=== PATIENT | male | born 1960 | race Caucasian/White ===

== ENCOUNTER → 2017-12-19 10:49 | Outpatient (CLI) | payer OTHER, SELFPAY | PROVIDERS: Family Provider Internal Medicine; PCP Internal Medicine; Visit Provider Internal Medicine | DX: R00.2 Palpitations (principal) | CPT/HCPCS: 93225; 93226 ==

== ENCOUNTER 2018-02-15 08:25 | Emergency (ER) | payer OTHER, SELFPAY ==
[2018-02-15 08:26] VITALS: BP 130/86; PULSE 70; RESP 18; TEMP 35.7; O2SAT 95; BMI 40.8
--- NOTE | 2018-02-15 08:31 | EKG12_ITS ---
Test Reason : ARRHYTHMIA Blood Pressure : / mmHG Vent. Rate : 142 BPM Atrial Rate : 277 BPM P-R Int : 000 ms QRS Dur : 136 ms QT Int : 336 ms P-R-T Axes : 245 -13 -45 degrees QTc Int : 516 ms Atrial flutter with variable A-V block Left bundle branch block Abnormal ECG Confirmed by MUNA SILVA, ROMEL ([id number]), video effects editor MATTI DOBSON ([id number]) on 02/17/2018 1:57:55 PM Referred By: ARIELLE Confirmed By:ROMEL TORO MD
[2018-02-15 08:38] VITALS: PULSE 143; RESP 19; O2SAT 96
--- NOTE | 2018-02-15 08:39 | RAD_ITS ---
STUDY: X-RAY CHEST REASON FOR EXAM: Male, 57 years old. Palpitations. TECHNIQUE: Single AP portable view of the chest. COMPARISON: December 07, 2017. FINDINGS: There are monitoring devices. The lungs are clear and expanded. There is no demonstrated pleural abnormality. Normal size heart. Normal mediastinum and nicol. Normal visualized pulmonary arteries. Normal visualized aortic arch and descending thoracic aorta. Normal visualized thoracic spine. Normal visualized ribs, clavicles, and shoulders. There is no demonstrated abnormality of the visualized soft tissue structures of the upper abdomen. RAD/Chest 1 View (Portable) IMPRESSION: Normal x-ray examination of the chest. Electronically Signed: Anthony Guzman MD at 9:06 EDT , Service support ,
--- NOTE | 2018-02-15 08:39 | EKG12_ITS ---
Test Reason : REPEAT Blood Pressure : / mmHG Vent. Rate : 077 BPM Atrial Rate : 077 BPM P-R Int : 188 ms QRS Dur : 102 ms QT Int : 390 ms P-R-T Axes : 002 -04 017 degrees QTc Int : 441 ms Normal sinus rhythm Septal infarct , age undetermined Abnormal ECG Confirmed by MUNA SILVA, ROMEL ([id number]), editorial clerk MATTI DOBSON ([id number]) on 02/17/2018 1:38:59 PM Referred By: MINERVA Confirmed By:ROMEL TORO MD
[2018-02-15] MEDS: dilTIAZem 25 MG/5 ML Vial 10 MG IV BOLUS ×2 (08:42→08:53)
[2018-02-15 08:49] LABS: Absolute Lymphocyte Count 2.28 X10^3/ul (0.83-4.51); Absolute Neutrophil Count 6.5 X10^3/uL (2.0-7.7); Basophil# 0.06 X10^3/uL; Basophil% 0.6 % (0-1); Hematocrit 47.1 % (40-54); Hemoglobin 15.7 g/dl (13.0-16.5); Lymphocyte # 2.28 X10^3/ul (4.0); Lymphocyte % 22.8 % (19-41); Mean Corp Hgb Conc 33.3 g/gl (32-36); Mean Corpuscular Hgb 30.2 pg (27.0-32.0); Mean Corpuscular Volume 90.6 fL (80-94); Mean Platelet Vol. 8.6 fl (6.2-12.0); Neutrophil % 65.1 % (47-70); POSITIVE COUNT NO; POSITIVE DIFFERENTIAL NO; POSITIVE MORPHOLOGY NO; Platelet Count 298 K/mm3 (150-450); RBC Distribution Width CV 13.7 % (11.6-14.6); RBC Distribution Width SD 45.4 fl (35.1-43.9)
[2018-02-15 09:01] VITALS: O2SAT 97
[2018-02-15 09:03] LABS: Anion Gap 7 (5-15); BUN 16 mg/dL (7-18); BUN/Creat Ratio 17.7 RATIO (10-20); Calcium,Total 8.8 mg/dL (8.5-10.1); Chloride 106 mmol/L (98-107); EST Glomerular Filtration Rate 93 mL/min (>60); Est Glom Filt Rate - Afr Amer 112 mL/min (>60); Estimated Creatinine Clearance 104.81 ml/min; Glucose 122 mg/dL (74-106); Potassium 4.4 mmol/L (3.5-5.1); Sodium Level 143 mmol/L (136-145)
--- NOTE | 2018-02-15 09:10 | EKG12_ITS ---
Test Reason : REPEAT Blood Pressure : / mmHG Vent. Rate : 107 BPM Atrial Rate : 136 BPM P-R Int : 000 ms QRS Dur : 106 ms QT Int : 310 ms P-R-T Axes : 000 -13 013 degrees QTc Int : 413 ms Atrial fibrillation Abnormal ECG Confirmed by ROMEL TORO MD ([id number]), makeup editor MATTI DOBSON ([id number]) on 02/17/2018 1:39:12 PM Referred By: MINERVA Confirmed By:ROMEL TORO MD
[2018-02-15 09:26] VITALS: BP 143/110; PULSE 132; RESP 17; O2SAT 97
--- NOTE | 2018-02-15 09:33 | ED.DCSUM_ITS ---
- ER Visit Summary Date of Service: 02/15/18 Chief Complaint: Heart racing History of Present Illness: The patient is a 57 M with a history of a flutter, CHF, diabetes, hypertension, hyperlipidemia, and alcohol abuse. Patient presents today for heart racing and palpitations. The started yesterday at 7 PM. He felt them start. He normally does feel his abnormal rhythm. Symptoms are associated with some mild shortness of breath but no other complaints. He thinks this is worse as he has been gaining weight, his diet is poor, he has had decreased activity, increased stress, and increased alcohol use. He drinks about a 12 pack of beer per day. He was on metoprolol in the past, but he was bradycardic with this and so this was stopped. He also was on Xarelto in the past. He had lost weight a few years ago and was more active and cut back his alcohol use. He was doing well and did not require rhythm control or thinners. Physical Examination: Afebrile. Heart rate 142. Blood pressure 130/86. Otherwise vitals unremarkable. Patient is alert and oriented. Appears comfortable. Heart is irregularly irregular. Lungs are clear. Abdomen soft. Extremities unremarkable. Skin normal. Test Results: EKG showed atrial flutter at a rate of 142 with a widened QRS complex consistent with left bundle branch block pattern. CBC normal. Chem panel normal. Troponin normal. Chest x-ray normal. Emergency Department Course and Treatment: Patient was placed on a monitor and oxygen. He was made n.p.o. He already had aspirin. He was given a 10 mg dose of Cardizem followed by a second 10 mg bolus. His heart rate improved to the 110s and his pressure remained stable, but he remained in what appeared to be atrial fibrillation. His QRS complex narrowed. He had no sign of underlying ischemia or infarction on the repeat EKG. His workup was unremarkable. I paged Dr. Ortiz was on-call for Dr. Goldman. He advised a dose of Lovenox, waiting 2 hours, and then electrical cardioversion. If this is successful, the patient may be sent home on Xarelto, and he can follow-up in the office. Awaiting electrical cardioversion, the patient converted to sinus rhythm. Rate 77. No sign of ischemia or infarction. Workup unremarkable. Vitals stable. I spoke with Dr. Ortiz. Will start the patient on Xarelto. He was on this in the past. No current contraindications noted. Renal function normal. Cardiology did not recommend any changes to his rate control. Follow-up as an outpatient. Return for new or worsening issues. Treatment Plan: As above Disposition: Discharged Impression: 1. Atrial flutter This note was generated with [employer] dictation software. It may contain incorrect words, spelling, and punctuation that were not noted in review of the chart prior to signing ED Disposition - Plan for ED Patient: Chief Complaint: Palpitations Referrals: Charlene Dennison MD [Primary Care Provider] -
[2018-02-15] MEDS: Enoxaparin 100 MG/ML Syringe 140 MG SC (09:38)
[2018-02-15 09:40] VITALS: BP 124/88; PULSE 139; RESP 17; O2SAT 98
--- NOTE | 2018-02-15 10:15 | ED.DEP ---
ED Disposition - Plan for ED Patient: Chief Complaint: Palpitations Instructions: ED Paroxysmal Atrial Flutter Prescriptions: Rivaroxaban [Xarelto] 20 mg PO DAILY #30 tab Referrals: Charlene Dennison MD [Primary Care Provider] - Stiven Goldman MD [STAFF PHYSICIAN] -
[2018-02-15 10:30] VITALS: BP 139/85; PULSE 81; RESP 20; O2SAT 97
== END 2018-02-15 10:31 | disposition home or self-care (01) ==
LOC: ED 08:51
PROVIDERS: Emergency Provider Emergency Medicine; Family Provider Internal Medicine; PCP Internal Medicine
DX: I48.92 Unspecified atrial flutter (principal); I11.0 Hypertensive heart disease with heart failure; I50.9 Heart failure, unspecified; I44.7 Left bundle-branch block, unspecified; R06.09 Other forms of dyspnea; E11.9 Type 2 diabetes mellitus without complications; F41.9 Anxiety disorder, unspecified; Z79.01 Long term (current) use of anticoagulants; Z79.82 Long term (current) use of aspirin; Z79.899 Other long term (current) drug therapy; Z87.891 Personal history of nicotine dependence
CPT/HCPCS: 71045; 80048; 84484; 85025; 93005; 96361; 96372; 96374; 99284; J7030; J7040; A4216

== ENCOUNTER 2018-08-20 18:16 | Emergency (ER) | payer OTHER, SELFPAY ==
[2018-08-20 18:16] VITALS: BP 140/107; PULSE 137; RESP 16; O2SAT 95
[2018-08-20 18:20] VITALS: BP 138/82; PULSE 69; RESP 17; TEMP 36.7; O2SAT 95; BMI 38.9
[2018-08-20 18:33] VITALS: BP 121/98; PULSE 109; RESP 16; O2SAT 95
--- NOTE | 2018-08-20 18:49 | EKG12_ITS ---
Test Reason : PALPITATIONS Blood Pressure : / mmHG Vent. Rate : 102 BPM Atrial Rate : 102 BPM P-R Int : 184 ms QRS Dur : 112 ms QT Int : 346 ms P-R-T Axes : 025 -02 065 degrees QTc Int : 450 ms Sinus tachycardia Possible Anterior infarct , age undetermined Abnormal ECG Confirmed by MUNA SILVA, ROMEL ([id number]), school photograph editor MATTI DOBSON ([id number]) on 08/25/2018 3:13:27 PM Referred By: ACOSTA/KAVON Confirmed By:ROMEL TORO MD
[2018-08-20 18:52] VITALS: O2SAT 98
--- NOTE | 2018-08-20 18:55 | RAD_ITS ---
STUDY: X-RAY CHEST REASON FOR EXAM: Male, 57 years old. Shortness of breath and dizziness. TECHNIQUE: Single AP portable view of the chest. COMPARISON: February 15, 2018. FINDINGS: Cardiac monitoring leads The lungs are clear and expanded. There is no demonstrated pleural abnormality. Normal size heart. Normal mediastinum and nicol. Normal visualized pulmonary arteries. There is atherosclerotic tortuosity of the aortic arch and descending thoracic aorta. Normal visualized thoracic spine. Normal visualized ribs, clavicles, and shoulders. There is no demonstrated abnormality of the visualized soft tissue structures of the upper abdomen. RAD/Chest 1 View (Portable) IMPRESSION: No radiographic evidence of acute cardiopulmonary disease. Electronically Signed: Iris Ocasio MD at 19:20 EDT , Service support ,
--- NOTE | 2018-08-20 18:58 | ED.VISSUMM ---
- ER Visit Summary Date of Service: 08/20/18 Chief Complaint: Patient with accelerated heart rate and palpitations History of Present Illness: The patient is a 57 M with past medical history of diabetes, hypertension, high cholesterol and atrial flutter. Patient states he was at home drank about 9-10 beers was eating pizza and he had palpitations and his heart rate became accelerated. He denied chest pain. He was concerned he was back in atrial flutter. Currently he states his symptoms have resolved. Physical Examination: Well-appearing middle-age male. Vital signs are well. Pulse ox 95% on 2 L no hypoxia. H EENT exam unremarkable. Neck nontender. No lymphadenopathy. Lungs clear to auscultation bilaterally. Heart regular rhythm rate about 105 no murmur. Chest wall nontender. Abdomen peritoneal signs. He is moving all 4 extremities. Calves are nontender without edema nor cords. Neurologically is awake alert with no focal motor deficits. Test Results: EKG shows a sinus tachycardia rate of 102 but currently he is not in atrial fib or flutter. CBC normal. White count of 9. Hemoglobin 14. Electrolytes unremarkable. Normal creatinine and gap. Troponin normal. Chest x-ray normal cardiac silhouette and mediastinum. No acute abnormality. Read both by myself and the radiologist. Emergency Department Course and Treatment: Patient's been doing well the entire time in the ER. On his initial presentation he was tachycardic he may have been in intermittent A. fib or flutter but that is since totally resolved. He has not been admitted again since that time. Treatment Plan: Continue on his current medications. Decrease his alcohol consumption. Get back on his exercise and diet plan. Disposition: Discharge Impression: Acute transient palpitations resolved History of atrial flutter History of diabetes, hypertension and high cholesterol This note was generated with [employer] dictation software. It may contain incorrect words, spelling, and punctuation that were not noted in review of the chart prior to signing ED Disposition - Plan for ED Patient: Chief Complaint: Palpitations Referrals: Charlene Dennison MD [Primary Care Provider] -
[2018-08-20 19:06] LABS: Absolute Lymphocyte Count 2.67 X10^3/ul (0.83-4.51); Absolute Neutrophil Count 5.9 X10^3/uL (2.0-7.7); Basophil# 0.06 X10^3/uL; Basophil% 0.6 % (0-1); Eosinophil# 0.41 X10^3/uL; Eosinophils% 4.2 % (0-5); Hematocrit 44.8 % (40-54); Hemoglobin 14.8 g/dl (13.0-16.5); Lymphocyte # 2.67 X10^3/ul (4.0); Lymphocyte % 27.5 % (19-41); Mean Corpuscular Volume 87.8 fL (80-94); Mean Platelet Vol. 8.9 fl (6.2-12.0); Monocyte# 0.62 X10^3/uL; Monocyte% 6.4 % (0-10); Neutrophil # 5.91 X10^3/uL (2.7-7.7); Neutrophil % 60.9 % (47-70); Platelet Count 247 K/mm3 (150-450); RBC Distribution Width CV 13.1 % (11.6-14.6); RBC Distribution Width SD 42.3 fl (35.1-43.9); White Blood Count 9.7 K/mm3 (4.4-11.0)
[2018-08-20 19:14] LABS: POSITIVE COUNT NO; POSITIVE DIFFERENTIAL NO; POSITIVE MORPHOLOGY NO
[2018-08-20 19:19] LABS: Anion Gap 10 (5-15); BUN 13 mg/dL (7-18); BUN/Creat Ratio 18.4 RATIO (10-20); Calcium,Total 9.2 mg/dL (8.5-10.1); Chloride 102 mmol/L (98-107); Creatinine, Serum 0.71 mg/dL (0.70-1.30); EST Glomerular Filtration Rate 123 mL/min (>60); Est Glom Filt Rate - Afr Amer 149 mL/min (>60); Estimated Creatinine Clearance 132.85 ml/min; Glucose 134 mg/dL (74-106); Potassium 3.5 mmol/L (3.5-5.1); Sodium Level 139 mmol/L (136-145)
--- NOTE | 2018-08-20 19:28 | ED.DEP ---
ED Disposition - Plan for ED Patient: Disposition: Home or Assisted Living Chief Complaint: Palpitations Instructions: ED Palpitations Referrals: Charlene Dennison MD [Primary Care Provider] - As Needed Stiven Goldman MD [STAFF PHYSICIAN] - As Needed Additional Instructions: Follow-up with Dr. Goldman as needed. Get back on your exercise and diet plan that you had done before. Decrease alcohol use. Continue current medications.
[2018-08-20 19:40] VITALS: BP 125/88; PULSE 98; RESP 19; O2SAT 95
== END 2018-08-20 19:43 | disposition home or self-care (01) ==
PROVIDERS: Emergency Provider Emergency Medicine; Family Provider Internal Medicine; PCP Internal Medicine
DX: R00.2 Palpitations (principal); I48.92 Unspecified atrial flutter; E11.9 Type 2 diabetes mellitus without complications; I10 Essential (primary) hypertension; E78.00 Pure hypercholesterolemia, unspecified; Z79.02 Long term (current) use of antithrombotics/antiplatelets; Z79.82 Long term (current) use of aspirin; Z79.899 Other long term (current) drug therapy; R00.0 Tachycardia, unspecified
CPT/HCPCS: 71045; 80048; 84484; 85025; 93005; 99285; A4216

== ENCOUNTER 2018-11-04 14:46 | Emergency (ER) | payer OTHER, SELFPAY ==
[2018-11-04] VITALS (9 sets, daily range): BP systolic 87–150; BP diastolic 67–91; PULSE 84–156; RESP 15–23; TEMP 36.3; O2SAT 93–98; BMI 44.9
--- NOTE | 2018-11-04 14:56 | EKG12_ITS ---
Test Reason : PALPS Blood Pressure : / mmHG Vent. Rate : 146 BPM Atrial Rate : 144 BPM P-R Int : 000 ms QRS Dur : 140 ms QT Int : 334 ms P-R-T Axes : 000 057 -50 degrees QTc Int : 520 ms Atrial fibrillation with rapid ventricular response with premature ventricular or aberrantly conducte d complexes Non-specific intra-ventricular conduction block Abnormal QRS-T angle, consider primary T wave abnormality Abnormal ECG Confirmed by MUNA SILVA, ROMEL ([id number]), pictures editor MATTI DOBSON ([id number]) on 11/07/2018 2:03:36 PM Referred By: ABDON Confirmed By:ROMEL TORO MD
--- NOTE | 2018-11-04 15:02 | RAD_ITS ---
STUDY: X-RAY CHEST REASON FOR EXAM: Male, 57 years old. Chest pain. TECHNIQUE: Single AP portable view of the chest. COMPARISON: Comparison is made with prior study dated August 20, 2018. FINDINGS: EKG electrodes are seen. The lungs are clear and expanded. Scattered calcified granulomas. There is no demonstrated pleural abnormality. Normal size heart. Normal mediastinum and nicol. Normal visualized pulmonary arteries. Normal visualized aortic arch and descending thoracic aorta. Normal visualized thoracic spine. Normal visualized ribs, clavicles, and shoulders. There is no demonstrated abnormality of the visualized soft tissue structures of the upper abdomen. RAD/Chest 1 View (Portable) IMPRESSION: Normal x-ray examination of the chest. Electronically Signed: Hood Thornton MD at 15:39 EST Tel [phone], Service support ,
--- NOTE | 2018-11-04 15:02 | EKG12_ITS ---
Test Reason : RYTHM CHANGE Blood Pressure : / mmHG Vent. Rate : 085 BPM Atrial Rate : 085 BPM P-R Int : 160 ms QRS Dur : 104 ms QT Int : 376 ms P-R-T Axes : 039 011 026 degrees QTc Int : 447 ms Normal sinus rhythm Normal ECG Confirmed by MUNA SILVA, ROMEL ([id number]), editor in chief MATTI DOBSON ([id number]) on 11/07/2018 1:43:59 PM Referred By: IDA Confirmed By:ROMEL TORO MD
--- NOTE | 2018-11-04 15:03 | ED.VISSUMM ---
- ER Visit Summary Date of Service: 11/04/18 Chief Complaint: Heart racing History of Present Illness: The patient is a 57 M presents to the emergency department palpitations. Patient has history of atrial flutter. He is anticoagulated on Xarelto. He states that this morning, he felt like his heart was racing. He states he was having symptomatic palpitations. He does describe being mildly short of breath and lightheaded. He states that he does get this from time to time. He states normally, he can wait it out and it will go away. He states today, just would not go away. He has been compliant with his medications. He denies any chest pain, but does admit to some dyspnea. He does follow with Dr. Goldman. He denies any fevers or chills. He denies any other systemic complaints. Physical Examination: Vital signs reviewed General: Well-nourished, well-developed Head: Normocephalic, atraumatic Eyes: Pupils equal and reactive, extraocular muscles intact Neck, supple, no lymphadenopathy Heart: Irregular rate and rhythm, tachycardic Respiratory: No distress, clear bilaterally Abdomen: Soft, nontender, nondistended, no peritoneal signs Back: Nontender Extremities: Nontender, no edema, no cords Skin: Normal color no rash Neuro: Alert and oriented, no focal or lateralizing deficits Test Results: [] Emergency Department Course and Treatment: EKG was on patient arrival. It does demonstrate atrial flutter with rapid ventricular response. The patient was locked basically at a rate of 150. IV was established. He was given fluids. I did obtain screening labs. His cardiac enzymes were normal. He has had this symptoms for 8 hours now. He has no documented history of coronary vascular disease. The patient was hypomagnesemic. I did give the patient 20 mg of diltiazem, but he had no change in his rate. I discussed the patient with Dr. Ortiz. The patient has been cardioverted before and has been resistant to rate control medication. I did discuss options with the patient. He was consented for conscious sedation and cardioversion. He was given etomidate. The patient was cardioverted at 200 J. He is repeat EKG does demonstrate sinus rhythm. His magnesium was replaced. The patient is resting comfortably. At this time, given his unremarkable workup, replacement of electrolytes, and the fact he is maintaining sinus rhythm I do feel that he is safe for discharge. Patient is comfortable with this plan of care. Treatment Plan: [] Disposition: Discharge Impression: 1. Atrial flutter with rapid ventricular response 2. Cardioversion 3. Conscious sedation This note was generated with [employer]ation software. It may contain incorrect words, spelling, and punctuation that were not noted in review of the chart prior to signing ED Disposition - Plan for ED Patient: Chief Complaint: Palpitations Instructions: ED Paroxysmal Atrial Flutter Referrals: Stiven Goldman MD [STAFF PHYSICIAN] -
[2018-11-04 15:29] LABS: Absolute Neutrophil Count 8.4 X10^3/uL (2.0-7.7); Basophil# 0.03 X10^3/uL; Basophil% 0.3 % (0-1); Eosinophil# 0.12 X10^3/uL; Eosinophils% 1.1 % (0-5); Hemoglobin 14.5 g/dl (13.0-16.5); Lymphocyte % 13.2 % (19-41); Mean Corpuscular Hgb 28.8 pg (27.0-32.0); Mean Corpuscular Volume 87.3 fL (80-94); Mean Platelet Vol. 8.7 fl (6.2-12.0); Monocyte# 0.67 X10^3/uL; Monocyte% 6.3 % (0-10); Neutrophil # 8.35 X10^3/uL (2.7-7.7); Neutrophil % 78.7 % (47-70); Platelet Count 254 K/mm3 (150-450); RBC Distribution Width CV 13.5 % (11.6-14.6); RBC Distribution Width SD 42.9 fl (35.1-43.9); Red Blood Count 5.04 M/mm3 (4.6-6.2); White Blood Count 10.6 K/mm3 (4.4-11.0)
[2018-11-04 15:30] LABS: POSITIVE COUNT NO; POSITIVE DIFFERENTIAL NO; POSITIVE MORPHOLOGY NO
[2018-11-04 15:43] LABS: Anion Gap 10 (5-15); BUN 20 mg/dL (7-18); BUN/Creat Ratio 19.2 RATIO (10-20); Calcium,Total 9.1 mg/dL (8.5-10.1); Chloride 103 mmol/L (98-107); Creatinine, Serum 1.04 mg/dL (0.70-1.30); EST Glomerular Filtration Rate 79 mL/min (>60); Est Glom Filt Rate - Afr Amer 95 mL/min (>60); Glucose 156 mg/dL (74-106); Magnesium 1.4 mg/dL (1.6-2.6); Sodium Level 140 mmol/L (136-145)
[2018-11-04] MEDS: 0.9% Normal Saline 1,000 ML 150 ML IV (15:44)
[2018-11-04] MEDS: dilTIAZem 25 MG/5 ML Vial 20 MG IV BOLUS (15:44)
[2018-11-04 16:21] LABS: BNP,B-Type NATRIURETIC PEPTIDE 66.2 pg/mL (0-100)
--- OUTSIDE RECORDS SUMMARY | 2019-02-06 03:50 | XMS RPT_ITS | Continuity of Care Document ---
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 [facility] emergency department in January 2018 after noting palpitations and heart racing. This was associated with mild shortness of breath. His EKG showed atrial flutter at a rate of 142 bpm with left bund le branch block pattern. His troponin was negative. Patient was prepared for a cardioversion, but converted to sinus rhythm before this could be completed. He maintained sinus rhythm and was discharged home. Pt. denies chest, arm, jaw, or neck discomfort. His exercise tolerance is stable though very minimal. Pt. denies symptoms of CHF, lightheadedness, dizziness, near syncope, or syncopal episodes. P t. denies edema or claudication issues. Pt. denies orthopnea, PND, fever, chills, blood in urine, blood in stool, myalgia, or unexplainable fatigue. He continues to work on losing weight. He states rec overing from a respiratory cold and still has residual SOB. Because of this, he states feeling less energy. 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 [Ecotrin] 325 mg PO DAILY@0800 12/07/17 [History Con firmed 02/27/18] alprazolam 0.5 mg tablet 0.5 mg PO .COMPLEX 02/19/18 [History Confirmed 02/27/18] ergocalciferol (vitamin D2) 50,000 unit capsule 50,000 unit PO QMONTH cap 02/19/18 [History Confirmed 0 02/27/18] carvedilol 3.125 mg tablet 3.125 mg PO BID tab 02/27/18 [History Confirmed 02/27/18] rivaroxaban 20 mg tablet 20 mg PO QDAY #30 tab 04/09/18 [Rx Confirmed 04/09/18] Ejection fraction %: 50 to 54 (50% per echo 11/27/2017 at [facility] Medical History Paroxysmal atrial flutter (Chronic) Systolic dysfunction (Chronic) Cardiomyopathy (Chronic) Hype rlipidemia (Chronic) Palpitations (Acute) Diabetes mellitus type 2 in obese (Chronic) Anxiety disorder (Chronic) Obesity (Chronic) Hypertension (Chronic) Surgical History History of cardioversion (Resolved) Family History Mother Cardiomyopathy Cancer thyroid cancer CHF (congestive heart failure) Father CAD (coronary artery disease) Sister COPD (chronic obstructive pulmonary disease) Breast cancer Social History Smoking Status: Former smoker alcohol intake: current alcohol intake frequency: 3 or more d rinks per day Alcohol type: beer details: occasional substance use type: does not use ROS Const Const: Positive for fatigue (d/t recent illness); negative for weakness, body ache, fever(s) or chi lls ENT ENT: Negative for dizziness Cardio Chest Pain: No Palpitations: Yes Edema: None Muscle aches with walking: None Resp Respiratory: Positive for SOB with activity (with cold); negative for SOB at rest, SOB orthopnea\SOB lying down or paroxysmal nocturnal dyspnea GI GI: Negative nausea, black,tarry stools, bright, red blood in stools or vomiting blood/hematemesis : Negative for hematuria or frequent nighttime urination/ nocturia Musc Musc: Positive for joint pain; negative for muscle aches/ myalgia Skin Skin: Negative non-healing lesions or rash Neuro Neuro: Negative for weakness, dizzines s, lightheadedness, near syncope, syncope or orthostatic symptoms Endo Endo: Positive for fatigue (d/t recent illness) Allergy Allergy/Immunology: Negative for rash Cardiology Exam Const Appearance: c ooperative, healthy appearing, comfortable and no acute distress Nutritional Appearance: obese Orientation: alert, awake and oriented x3 Head Head: normal to inspection Ears: hearing grossly normal bila terally Nose: external nose normal Face and Sinus: face symmetric Mouth: oral mucosae normal Eyes General: appearance normal, both eyes and all related structures Eyelids: eyelids normal Neck Neck: no J VD and normal visual inspection Carotids: normal carotid upstroke Chest Chest inspection: normal inspection of the chest and normal respiratory effort; negative cough Auscultation: Bilateral: Clear to A uscultation Cardio Rate: regular rate Rhythm: regular rhythm Heart sounds: S1 normal and S2 normal; negative rub or gallop GI GI: normal to inspection and obese Neuro General: alert, awake, oriented x3 and CN's II-XI intact bilaterally Skin Skin: no rashes or lesions noted and purpura (abdomen and right arm after injury) Extremities Pulses: Normal: Right Posterior Tibial Pulse, Left Posterior Tibial P ulse, Right Radial Pulse, Left Radial Pulse Lower Extremity Edema: None: Bilateral Psych Psychological: normal affect Supplemental Info Echocardiogram from November 2017 showed estimated ejection fract ion of 50%, mild mitral annular calcification, trivial mitral valve insufficiency, trivial tricuspid valve insufficiency, mild focal aortic valve thickening, RVSP of 27 mmHg, and diastolic dysfunction. Echocardiogram from January 2017 showed an estimate ejection fraction 40%, mild concentric LVH, mild global left ventricular systolic dysfunction, mildly enlarged left atrium, mildly enlarged right atriu m, stress test from April 2014 and mild tricuspid valve insufficiency. Stress test from April 2014 showed EKG with no ST or T-wave changes to suggest abnormal flow reserve, nuclear images with no obvious ischemia noted, and ejection fraction reported at 43%. Assessment AND Plan 1. Paroxysmal atrial flutter I48.92 S/P DCCV 05/15/2014 Plan Patient did have one episode of atrial fibrillation in February 04 in which he sought attention at the emergency department. He eventually converted to sinus rhythm. He did not require cardioversion. He appears to be maintaining regular rhythm today in office. His h eart rate remains well controlled. He will continue current medications which include carvedilol and Xarelto. His most recent kidney function with primary care physician showed a creatinine of 0.65. 2. Cardiomyopathy, unspecified type I42.9 Plan Patient's most recent echocardiogram in November 2017 showed an ejection fraction of 50%. Patient does acknowledge some shortness of breath associated with hi s recent respiratory cold. He appears to be tolerating Coreg well. He will continue both Coreg and lisinopril. We will continue to monitor this through history, exam, and repeat echocardiogram as needed . We will titrate medications accordingly. 3. Essential hypertension I10 Plan Patient's blood pressure is on the higher end of expected range. Due to his history of bradycardia his Coreg will not be ad justed at this time. He was asked to continue to engage in weight loss, which will hopefully improve his blood pressure. 4. Pure hypercholesterolemia E78.00; E78.0 Plan This is managed by primary care physician. Patient brought lipid panel results from primary care physician and it showed total cholesterol: 176, LDL: 70, HDL: 53, triglycerides: 266, and non-HDL cholesterol: 123. Based on these result s it was recommended that he continue with lifestyle modifications which include exercise, diet, and discontinuing alcohol products. 5. Diabetes mellitus type 2 in obese E11.69; E66.9 Plan Patient was diagnosed with this in the past. After his significant weight loss, he no longer required any diabetic management. He states since he has put on weight his hemoglobin A1c remains acceptable at 5.5%. He was reminded of the importance of healthy weight loss and managing both diabetes and improving cardiovascular health. He will continue to follow-up with primary care physician for this. 6. Class 3 marisol re obesity due to excess calories with serious comorbidity and body mass index (BMI) of 40.0 to 44.9 in adult E66.01; Z68.41 Plan This again remains patient's main concern. He does have a history of sig nificant weight loss in the past. He states after he quit smoking he put on weight and after he had multiple deaths in his family he put on more weight. Patient does acknowledge the importance of weight loss and continues to work on this. We will continue to promote and support healthy weight loss. Plan Detail Other Medications New: Additional Comments Thank you for allowing us to participate in the patients plan of care, if you have any questions please do not hesitate to call. This note was generated using a voice recognition system and there may be incorrect words, spelling or punctuation that were not noted when reviewing the office note prior to saving. Follow Up 12 Months (PFM) Coding Level of Care Code Off vis,est,level 3 Diagnoses Paroxysmal atrial flutter I48.92 Cardiomyopathy, unsp ecified type I42.9 Cardiomyopathy type: unspecified Essential hypertension I10 Hypertension type: essential hypertension Pure hypercholesterolemia E78.00; E78.0 Hyperlipidemia type: pure hypercholestero lemia Diabetes mellitus type 2 in obese E11.69; E66.9 Class 3 severe obesity due to excess calories with serious comorbidity and body mass index (BMI) of 40.0 to 44.9 in adult E66.01; Z68.41 Obesity typ e: due to excess calories Obesity classification: adult class 3 (BMI >= 40) Serious obesity comorbidity presence: with serious comorbidity Body mass index: BMI 40.0-44.9 Coding Level of Care C ode Off vis,est,level 3 Diagnoses Paroxysmal atrial flutter I48.92 Cardiomyopathy, unspecified type I42.9 Cardiomyopathy type: unspecified Essential hypertension I10 Hypertension type: essential hypert ension Pure hypercholesterolemia E78.00; E78.0 Hyperlipidemia type: pure hypercholesterolemia Diabetes mellitus type 2 in obese E11.69; E66.9 Class 3 severe obesity due to excess calories with serious c omorbidity and body mass index (BMI) of 40.0 to 44.9 in adult E66.01; Z68.41 Obesity type: due to excess calories Obesity classification: adult class 3 (BMI >= 40) Serious obesity comorbidity pr esence: with serious comorbidity Body mass index: BMI 40.0-44.9 04/09/18 1338 <Electronically signed by Omer FERNANDEZ> Date Omer FERNANDEZ Cosigner Signature: Date (if applicable) CC: Samina Gomez MD 17-Feb-2018 12 Lead Electrocardiogram Result: Comments: See Note; NOTES: [facility] Cardiovascular Services [address] [place] [address] 12 Lead EKG 02/15/18 0831 MR#: [id number] Acct: [id number] Name: VISHAL BAILEY Rep #: [id number] : 1960 57 From: Ken Ortiz MD Attending Dr: Status: DEP ER Ordering Dr: Celia Khanna MD Date: 02/15/18 Location: ED Sex: M C Admitted: Test Reason : ARRHYTHMIA Blood Pressure : / mmHG Vent. Rate : 142 BPM Atrial Rate : 277 BPM P-R Int : 000 ms QRS Dur : 136 ms QT Int : 336 ms P-R-T Axes : 245 -13 -45 degrees QTc Int : 516 ms Atrial flutter with variable A-V block Lef t bundle branch block Abnormal ECG Confirmed by MUNAKEN SALGADO MD ([id number]), editor in chief MATTI DOBSON ([id number]) on 02/17/2018 1:57:55 PM Referred By: ARIELLE Confirmed By:KEN ORTIZ MD 02/17/18 1358 Date Ken Ortiz MD CC: Samina Gomez MD; Abhijit Lea MD; Cleia Khanna MD Signed 17-Feb-2018 12 Lead Electrocardiogram Result: Comments: See Note; NOTES: [facility] Cardiovascular Services [address] [place] [address] 12 Lead EKG 02/15/18 1002 MR#: [id number] Acct: [id number] Name: VISHAL BAILEY Rep #: [id number] : 1960 57 From: Ken Ortiz MD Attending Dr: Status: DEP ER Ordering Dr: Abhijit Lea MD Date: 02/15/18 Location: ED Sex: M C Admitted: Test Reason : REPEAT Blood Pressure : / mmHG Vent. Rate : 077 BPM Atrial Rate : 077 BPM P-R Int : 188 ms QRS Dur : 102 ms QT Int : 390 ms P-R-T Axes : 002 -04 017 degrees QTc Int : 441 ms Normal sinus rhythm Septal infarct , age undeter mined Abnormal ECG Confirmed by KEN ORTIZ MD ([id number]), editor in chief MATTI DOBSON ([id number]) on 02/17/2018 1:38:59 PM Referred By: MINERVA Confirmed By:KEN ORTIZ MD 02/17/18 1339 Date Ken Ortiz MD CC: Samina Gomez MD; Abhijit Lea MD Signed 17-Feb-2018 12 Lead Electrocardiogram Result: Comments: See Note; NOTES: [facility] Cardiovascular Services [address] [place] [address] 12 Lead EKG 02/15/18 0902 MR#: [id number] Acct: [id number] Name: VISHAL BAILEY R Rep #: [id number] : 1960 57 From: Ken Ortiz MD Attending Dr: Status: DEP ER Ordering Dr: Abhijit Lea MD Date: 02/15/18 Location: ED Sex: M C Admitted: Test Reason : REPEAT Blood Pressure : / mmHG Vent. Rate : 107 BPM Atrial Rate : 136 BPM P-R Int : 000 ms QRS Dur : 106 ms QT Int : 310 ms P-R-T Axes : 000 -13 013 degrees QTc Int : 413 ms Atrial fibrillation Abnormal ECG Confirmed by OF KEN SALGADO MD ([id number]), editor in chief MATTI DOBSON ([id number]) on 02/17/2018 1:39:12 PM Referred By: MINERVA Confirmed By:KEN ORTIZ MD 02/17/18 1339 Date Ken Fitzgerald CC: Samina Gomez MD; Abhijit Lea MD Signed 15-Feb-2018 Discharge Instruction Result: Comments: See Note; NOTES: [facility] Medical Records Department [address] [place] [address] Discharge Instruction 02/15/18 1015 MR#: [id number] Acct: [id number] Name: DO SHELLY BAILEY R Rep #: [id number] : 1960 57 From: Abhijit Lea MD PCP: Samina Gomez MD Status: DEP ER ED Disposition - Plan for ED Patient: Chief Complaint: Palpitations Instructions: ED Paroxysmal A trial Flutter Prescriptions: Rivaroxaban [Xarelto] 20 mg PO DAILY #30 tab Referrals: Samina Gomez MD [Primary Care Provider] - Stiven Goldman MD [STAFF PHYSICIAN] - What to do if you have Problems For any increased pain, shortness of breath, bleeding, nausea or vomiting, chest pain, or any unexpected problems, contact your Primary Care Provider. Call [employer] [facility] ([phone]) or report to the closest Emergency Room. Call 911 if necessary. 02/15/18 1706 <Electronically signed by Abhijit Lea MD> Date Abhijit Lea MD Co signer Signature (If Indicated): Date CC: Samina Gomez MD 15-Feb-2018 Emergency Department Summary Result: Comments: See Note; NOTES: [facility] Medical Records Department [address] [place] [address] Emergency Department Summary 02/15/18 0928 MR#: [id number] Acct: [id number] Name: VISHAL BAILEY Rep #: [id number] : 1960 57 From: Abhijit Lea MD PCP: Samina Gomez MD Status: DEP ER - ER Visit Summary Date of Service: 02/15/18 Chief Complaint: Heart racing History of Pre sent Illness: The patient is a 57 M with a history of a flutter, CHF, diabetes, hypertension, hyperlipidemia, and alcohol abuse. Patient presents today for heart racing and palpitations. The started yes terday at 7 PM. He felt them start. He normally does feel his abnormal rhythm. Symptoms are associated with some mild shortness of breath but no other complaints. He thinks this is worse as he has been gaining weight, his diet is poor, he has had decreased activity, increased stress, and increased alcohol use. He drinks about a 12 pack of beer per day. He was on metoprolol in the past, but he was liza ycardic with this and so this was stopped. He also was on Xarelto in the past. He had lost weight a few years ago and was more active and cut back his alcohol use. He was doing well and did not require rhythm control or thinners. Physical Examination: Afebrile. Heart rate 142. Blood pressure 130/86. Otherwise vitals unremarkable. Patient is alert and oriented. Appears comfortable. Heart is irregularl y irregular. Lungs are clear. Abdomen soft. Extremities unremarkable. Skin normal. Test Results: EKG showed atrial flutter at a rate of 142 with a widened QRS complex consistent with left bundle branch block pattern. CBC normal. Chem panel normal. Troponin normal. Chest x-ray normal. Emergency Department Course and Treatment: Patient was placed on a monitor and oxygen. He was made n.p.o. He already had aspirin. He was given a 10 mg dose of Cardizem followed by a second 10 mg bolus. His heart rate improved to the 110s and his pressure remained stable, but he remained in what appeared to be atrial f ibrillation. His QRS complex narrowed. He had no sign of underlying ischemia or infarction on the repeat EKG. His workup was unremarkable. I paged Dr. Ortiz was on-call for Dr. Goldman. He advised a dose of Lovenox, waiting 2 hours, and then electrical cardioversion. If this is successful, the patient may be sent home on Xarelto, and he can follow-up in the office. Awaiting electrical cardioversio n, the patient converted to sinus rhythm. Rate 77. No sign of ischemia or infarction. Workup unremarkable. Vitals stable. I spoke with Dr. Ortiz. Will start the patient on Xarelto. He was on this in the past. No current contraindications noted. Renal function normal. Cardiology did not recommend any changes to his rate control. Follow-up as an outpatient. Return for new or worsening issues. Treatment Plan: As above Disposition: Discharged Impression: 1. Atrial flutter This note was generated with [employer] dictation software. It may contain incorrect words, spelling, and punctuation that were not noted in review of the chart prior to signing ED Disposition - Plan for ED Patient: Chief Complaint: Palpitations Referrals: Samina Gomez MD [Primary Care Provider] - What to do if you have Prob lems For any increased pain, shortness of breath, bleeding, nausea or vomiting, chest pain, or any unexpected problems, contact your Primary Care Provider. Call [employer] [facility] ([phone]) or repor t to the closest Emergency Room. Call 911 if necessary. 02/15/18 1712 <Electronically signed by Abhijit Lea MD> Date Abhijit Lea MD Cosigner Signature (If Indicated): Date CC: Samina Gomez MD 15-Feb-2018 Chest 1 View (Portable) Result: Comments: See Note; NOTES: [facility] Imaging Services [address] [place] [address] Chest 1 View (Portable) MR#: [id number] Acct: [id number] Name: VISHAL BAILEY Rep #: [id number] : 1960 57 From: Anthony Guzman MD PCP: Samina Gomez MD Status: REG ER Study: Chest 1 View (Portable) Date of Exam: 02/15/18 Exam# [id number] Ordering Dr: Abhijit Lea MD STUDY: X-RAY C HEST REASON FOR EXAM: Male, 57 years old. Palpitations. TECHNIQUE: Single AP portable view of the chest. COMPARISON: December 07, 2017. FINDINGS: There are monitor ing devices. The lungs are clear and expanded. There is no demonstrated pleural abnormality. Normal size heart. Normal mediastinum and nicol. Normal visualized pulmonary arteries. Normal visualized aor tic arch and descending thoracic aorta. Normal visualized thoracic spine. Normal visualized ribs, clavicles, and shoulders. There is no demonstrated abnormality of the visualized soft tissue structure s of the upper abdomen. RAD/Chest 1 View (Portable) IMPRESSION: Normal x-ray examination of the chest. Electronically Signed: Anthony Guzman MD at 9:06 EDT , Service support , CC: Samina Gomez MD; Abhijit Lea MD Morning Show Producer: Signed 09-Dec-2017 12 Lead Electrocardiogram Result: Comments: See Note; NOTES: [facility] Cardiovascular Services [address] [place] [address] 12 Lead EKG 12/07/171917 MR#: [id number] Acct: [id number] Name: VISHAL BAILEY R Rep #: [id number] : 1960 57 From: Stiven Goldman MD Attending Dr: Status: DEP ER Ordering Dr: Jovani Green MD Date: 12/07/17 Location: ED Sex: M C Admitted: Test Reason : CP Blood Pressure : */ mmHG Vent. Rate : 095 BPM Atrial Rate : 095 BPM P-R Int : 148 ms QRS Dur : 102 ms QT Int : 350 ms P-R-T Axes : 002 002 011 degrees QTc Int : 439 ms Normal sinus rhythm Septal CA, age undetermined , cannot be excluded Confirmed by CAMERON SILVA, STIVEN ([id number]), editor in chief MATTI DOBSON ([id number]) on 12/09/2017 1:21:21 PM Referred By: ACOSTA Confirmed By:STIVEN GOLDMAN MD 12/09/17 1321 Date Stiven Goldman MD CC: Samina Gomez MD Signed 07-Dec-2017 Discharge Instruction Result: Comments: See Note; NOTES: [facility] Medical Records Department [address] [place] [address] Discharge Instruction 12/07/172120 MR#: [id number] Acct: [id number] Name: DO SHELLY BAILEY R Rep #: [id number] : 1960 57 From: Jovani Green MD PCP: Samina Gomez MD Status: DEP ER ED Disposition - Plan for ED Patient: Disposition: Home or Assisted Living Chief Complaint: Pal pitations Instructions: ED Palpitations Referrals: Samina Gomze MD [Primary Care Provider] - As soon as possible Additional Instructions: Follow-up with Dr. Gomez. If you continue to have palpitation s follow-up with Dr. Goldman. Your labs, chest x-ray and EKG today were normal. What to do if you have Problems For any increased pain, shortness of breath, bleeding, nausea or vomiting, chest pa in, or any unexpected problems, contact your Primary Care Provider. Call [facility] ([phone]) or report to the closest Emergency Room. Call 911 if necessary. 12/07/172229 <Electron ically signed by Jovani Green MD> Date Jovani Green MD Cosigner Signature (If Indicated): Date CC: Samina Gomez MD 07-Dec-2017 Emergency Department Summary Result: Comments: See Note; NOTES: [facility] Medical Records Department [address] [place] [address] Emergency Department Summary 12/07/173 MR#: [id number] Acct: [id number] Name: VISHAL BAILEY Rep #: [id number] : 1960 57 From: Jovani Green MD PCP: Samina Gomez MD Status: DEP ER - ER Visit Summary Date of Service: 12/07/17 Chief Complaint: Palpitations History of P resent Illness: The patient is a 57 M prior history of atrial flutter for which she was cardioverted in 2013. Patient states at that time he gave himself in good shape lost 180 pounds. States that recen tly he lost his focus gaining 100 pounds back this year. Today he had palpitations he felt may have been atrial flutter again around 3 PM. It resolves around 630 and currently symptom- free. He denies any chest pain or shortness of breath. No history of DVT or PE. There is an area recent risk factors and no hemoptysis or leg pain or swelling. Physical Examination: Well-appearing midd le-age male. Vital signs are stable and afebrile. Currently on my exam is in the 70s. His pulse ox is 93% on room air no signs of hypoxia. H EENT exam unremarkable. Neck nontender. Lungs are clear to au scultation bilaterally. Heart is regular rate and rhythm rate in the 70s. No murmur. Chest wall nontender. Abdomen soft nontender. He is moving all 4 extremities. They are neurovascularly intact. Calves are nontender without edema. Neurologic exam is normal. Test Results: CBC normal with white count 7. Normal H AND H. BMP initially was abnormal but did not make any sense and clinically I thought it w as erroneous labs. They were redrawn in the second BMP on the second blood draw was completely normal. Troponin normal. EKG sinus rhythm rate of 95 with no acute abnormality and no dysrhythmia. An incom plete left bundle which is seen on a prior EKG from April 2014. Emergency Department Course and Treatment: Patient with palpitations is since resolved. Currently the sinus rhythm Treatment Plan: Repeat exam is doing well at 2105. He has not had a dysrhythmia since his been in the ER. I went over all test results the patient and his significant other and they will be discharged to home. Disposition: Discharge Impression: Acute palpitations of uncertain etiology History of atrial flutter This note was generated with [employer] dictation software. It may contain incorrect words, spelling, and punctua tion that were not noted in review of the chart prior to signing ED Disposition - Plan for ED Patient: Chief Complaint: Palpitations Referrals: Samina Gomez MD [Primary Care Provider] - What to d o if you have Problems For any increased pain, shortness of breath, bleeding, nausea or vomiting, chest pain, or any unexpected problems, contact your Primary Care Provider. Call [facility] ) or report to the closest Emergency Room. Call 911 if necessary. 12/07/17 4596 <Electronically signed by Jovani Green MD> Date _ Jovani Green MD Cosigner Signature (If Indicated): Date CC: Samina Gomez MD 07-Dec-2017 Chest 1 View (Portable) Result: Comments: See Note; NOTES: [facility] Imaging Services [address] [place] [address] Chest 1 View (Portable) MR#: [id number] Acct: [id number] Name: VISHAL BAILEY Rep #: [id number] : 1960 M 57 From: Andrew Abraham MD PCP: Samina Gomez MD Status: DEP ER Study: Chest 1 View (Portable) Date of Exam: 12/07/17 Exam# [id number] Ordering Dr: Jovani Green MD STUDY: X-RAY CHEST REASON FOR EXAM: Male, 57 years old. Palpitations TECHNIQUE: AP COMPARISON: May 15, 2014 FINDINGS: EKG leads project over the chest. The lungs are clear and expanded. There is no demonstrated pleural abnormality. Normal size heart. Normal mediastinum and nicol. Normal visualized pulmonary arteries. Normal visualized aortic arch and descending thoracic a georgina. No acute bony process. There is no demonstrated abnormality of the visualized soft tissue structures of the upper abdomen. RAD/Chest 1 Vi ew (Portable) IMPRESSION: Stable, nonacute portable x-ray examination of the chest. Electronically Signed: Andrew Abraham MD at 21:40 EST , Service support , CC: Samina Gomez MD; Jovani Green MD Morning Show Producer: Signed 27-Nov-2017 Echocardiogram Complete Result: Comments: See Note; NOTES: [facility] Cardiovascular Services [address] [place] [address] Echo Complete 11/27/17 0951 MR#: [id number] Acct: [id number] Name: VISHAL BAILEY #: [id number] : 1960 57 From: Stiven Goldman MD Attending Dr: Samina Gomez MD Status: REG CLI Ordering Dr: Samina Gomez MD Date: 11/27/17 Location: [facility] Sex: M C Admitted: Reason For Stud y: Abn Echo Procedure This was a 2D Doppler, Color Flow transthoracic echocardiogram. The exam was of poor technical quality due to body habitus. The study was technically difficult. Exam performed in department. Left Ventricle Normal LV size. Left ventricular systolic function is lower limits of normal. The estimated ejection fraction is 50 %. Transmitral doppler flow suggestive of impaired relaxat ion of left ventricle. No regional wall motion abnormalities noted. Right Ventricle Normal RV size. Normal systolic function. Atria Normal left atrium. Normal right atrium. No doppler evidence for ASD . Mitral Valve There is mild mitral annular calcification. Normal mitral valve. Trivial mitral valve insufficiency. Tricuspid Valve Normal tricuspid valve. Trivial tricuspid valve insufficiency. Right ventricular systolic pressure estimated to be 27 mmHg. Aortic Valve Trisinus/trileaflet aortic valve. Mild focal aortic valve thickening. Pulmonic Valve The pulmonic valve is not well visualized. Gre at Vessels Normal sized aortic root. Pericardium/Pleural No pericardial effusion. MMode/2D Measurements AND Calculations LVIDd: 5.1 cm IVSd: 1.5 cm Ao root diam: 3.8 cm LVIDs: 3.7 cm LVPWd: 1.3 cm LA dimension: 3.6 cm RVDd: 4.3 cm FS: 26.3 % LAV(MOD-bp): 44.9 ml LA A4 area: 15.3 cm2 RA A4 area: 12.7 cm2 LAV(MOD-bp) Ind exed: 17.7 ml/m2 LAV(MOD-sp2): 45.0 ml LAV(MOD-sp4): 38.3 ml Doppler Measurements AND Calculations MV E max dario: 56.2 cm/sec Lat Peak E' Dario: 7.9 cm/sec Med Peak E' Dario: 5.0 cm/sec MV A max dario: 84.2 c m/sec E/E' lat: 7.1 E/E' med: 11.2 MV E/A: 0.67 Ao V2 max: 148.3 cm/sec LV V1 max: 109.5 cm/sec PA V2 max: 109.4 cm/sec Ao max P.8 mmHg LV V1 max P.8 mmHg Ao V2 mean: 101.1 cm/sec Ao mean P.5 mmHg Ao V2 VTI: 27.7 cm TR max dario: 244.4 cm/sec TR max P.9 mmHg Interpretation Summary The study was technically difficult. Left ventricular systolic function is lower limits of normal. The estimated ejection fraction is 50 %. Ther e is mild mitral annular calcification. Trivial mitral valve insufficiency. Trivial tricuspid valve insufficiency. Mild focal aortic valve thickening. Right ventricular systolic pressure estimated to be 27 mmHg. Transmitral doppler flow suggestive of impaired relaxation of left ventricle Ordering P hysician: Samina Gomez Referring Physician: Samina Gomez Performed By: Sindy Ospina, RDCS, RVT 11/27/171804 Date ____ Stiven Goldman MD CC: Samina Gomez MD Date Dictated: 11/27/17 0951 Date Transcribed: 11/27/171804 Morning Show Producer: Signed 15-Feb-2017 Echocardiogram Complete Result: Comments: See Note; NOTES: [facility] Cardiovascular Services [address] [place] [address] Echo Complete 02/15/1753 MR#: [id number] Acct: [id number] Name: VISHAL BAILEY p #: [id number] : 1960 56 From: Ken Ortiz MD Attending Dr: Samina Gomez MD Status: REG CLI Ordering Dr: Samina Gomez MD Date: 02/15/17 Location: [facility] Sex: M C Admitted: Reason For Study: Acute EKG changes Procedure This was a 2D Doppler, Color Flow transthoracic echocardiogram. The study was technically difficult. Due to body habitus. Exam performed in department. Left Ventricle Yeimi l LV size. Mild concentric left ventricular hypertrophy. The estimated ejection fraction is 40 %. Mild global left ventricular systolic dysfunction. There is mild global hypokinesis of the left ventricl e. Right Ventricle Normal RV size. Normal systolic function. Atria The left atrium is mildly enlarged. The right atrium is mildly enlarged. Mitral Valve Normal mitral valve. Tricuspid Valve Normal tr icuspid valve. Mild tricuspid valve insufficiency. Pulmonary artery systolic pressure is 22 mmHg. Aortic Valve Trisinus/trileaflet aortic valve. Pulmonic Valve The pulmonic valve is not well visualize d. Great Vessels Normal aortic root. The pulmonary artery is normal size. Normal inferior vena cava. Pericardium/Pleural No pericardial effusion. MMode/2D Measurements & Calculations LVIDd: 6 .1 cm IVSd: 1.3 cm Ao root diam: 4.1 cm LVIDs: 4.1 cm LVPWd: 1.4 cm LA dimension: 4.0 cm RVDd: 3.9 cm FS: 32.9 % LAV(MOD -bp): 81.5 ml EDV(MOD-sp4): 142.6 ml EDV(MOD-sp2): 188.1 ml LAV(MOD-bp) Indexed: 33.4 ml/m2 ESV(MOD-sp4): 69.3 ml EF(MOD-sp2): 56.1 % LAV(MOD-sp2): 94.2 ml EF(MOD-sp4): 51.4 % LAV(MOD-sp4): 68.9 ml ____ SV(MOD-sp4): 73.3 ml SV(MOD-sp2): 105.6 ml LA A4 area: 21.3 cm2 RA A4 area: 21.8 cm2 Doppler Measurements & Calculations MV E max dario: 80.0 cm/sec Lat Peak E' Dario: 9.9 cm/sec Med Peak E' Dario: 4.5 cm/sec MV A max dario: 113.0 cm/sec E/E' lat: 8.1 E/E' med: 17.9 MV E/A: 0.71 Ao V2 max: 145.3 cm/sec LV V1 max: 103.1 cm/sec PA V2 max: 107.1 cm/sec Ao max P.4 mmHg LV V1 max P.3 mmHg TR max daroi: 211.8 cm/sec TR max P.0 mmHg Interpretation Summary Normal LV size. Mi ld concentric left ventricular hypertrophy. The estimated ejection fraction is 40 %. Mild global left ventricular systolic dysfunction. Mild tricuspid valve insufficiency. Ordering Physician: Samina Gomez Performed By: Mildred Pond, ANTHONY, RVT Electronically signed by: Ken Ortiz MD on 017 02:22 PM 02/15/17 142 Date Ken Ortiz MD CC: Samina Gomez MD Date Dictated: 02/15/17 0953 Date Transcribed: 02/15/17 1422 Morning Show Producer: Signed 16-Dec-2014 Esophagus Only Result: Comments: See Note; NOTES: [facility] Imaging Services [address] [place] [address] Radiology Report MR#: [id number] Acct: [id number] Name: VISHAL BAILEY Rep #: [id number] : 1960 M 54 From: Hood Thornton MD PCP: Samina Gomez MD Status: REG CLI Study: Esophagus Only Date of Exam: 12/16/14 Exam# [id number] Ordering Dr: Samina Gomez MD STUDY: X-RAY - ESOPHAGUS (BARIUM SWALLOW) WITH FLUOROSCOPY REASON FOR EXAM: Male, 54 years old. Dysphagia. TECHNIQUE: Multiple view(s) of the esophagus were obtained following swallowing of barium. FLUOROSCOP Y TIME (if supplied): (0:40) minutes/seconds COMPARISON: None. FINDINGS: There is no demonstrated esophageal foreign body. There is no demonstrated stricture o r mucosal abnormality. Normal gastroesophageal junction, without a demonstrated hiatal hernia. The patient ingested a 12 mm tablet of barium. The tablet is trapped at the gastroesophageal junction. Normal visualized aortic arch and descending thoracic aorta. Normal visualized pulmonary parenchyma. Normal visualized osseous structures of the thorax. IMPRESS ION: There is trapping of the 12 mm tablet of barium at the level of the gastroesophageal junction. Electronically Signed: Hood Thornton MD at 8:59 EST Tel [phone], Service flores pport [phone], CC: Samina Gomez MD Morning Show Producer: Signed 23-Sep-2014 Abdomen WITH IV Contrast Result: Comments: See Note; NOTES: [facility] Imaging Services [address] [place] [address] CAT Scan Report MR#: [id number] Acct: [id number] Name: VISHAL BAILEY Rep #: [id number] : 1960 M 53 From: Hood Thornton MD PCP: Samina Gomez MD Status: REG CLI Study: Abdomen WITH IV Contrast Date of Exam: 09/23/14 Exam# [id number] Ordering Dr: [facility] De [facility]AST REASON FOR EXAM: Male, 53 years old. Hemochromatosis. RADIATION DOSAGE (If Supplied By Facility): CTDIvol = ( 19.98 ) mGy, DLP = ( 1562.19 ) mGycm TECHNIQUE: Transax ial images were obtained post I.V. administration of 100mL ml of Isovue 300 contrast. Sagittal and coronal images were reconstructed. Delayed imaging was obtained as well. COMPARISON: None. FINDINGS: The visualized lung bases are unremarkable. The visualized portions of the heart are within normal limits. There is decreased attenuation of the liver consis tent with steatosis. Normal gallbladder and extrahepatic biliary system. Normal spleen. Normal pancreas. Normal bilateral adrenal glands. Normal right kidney. Normal left kidney. There is evidence of a left retroaortic renal vein. Normal visualized stomach. Normal small intestine. Normal colon. The appendix is visualized and appears normal. There is scattered atherosclerotic calcification of the abdominal aorta, without a demonstrated aneurysm. Normal inferior vena cava. Normal retroperitoneum. There is a small umbilical hernia containing fat. There are diffuse degenerative changes of the visualized thoracic spine and mild degenerative changes at the L5-S1 level there IMPRESSION: There is evidence of fatty infiltration of the liver Electr onically Signed: Hood Thornton MD at 11:45 EST Tel [phone], Service support [phone], CC: Samina Gomez MD; Xander De Morning Show Producer: Signed Immunization Name Dates Details Influenza (3 years and up) on: 08-Sep-2009 Comments: Lot #: [id number] date: mount given: 0.5 mlRoute: IMSite given: left deltoidGiven by: Kalyan Bernal LPN Family History Unknown Family Member Name Dates Details Father Comments: Prostate CA, CAD late 60's, COPD, od esphageal cancer Status: Active Maternal Grandfather Comments: d/t aortic aneurysm, CAD, early onset dementia Status: Active Maternal Grandmother Comments: Type II diabetic, lung cancer age 79 Status: Active Mother Comments: cardiomyopathy, renal disease, Thyroid Cancer, CHF, dementia,lung cancer Status: Active Paternal Grandfather Comments: cancer unknown area Status: Active Paternal Grandmother Comments: esophageal cancer Status: Active Sister 1 Comments: breast cancer to metastatic now to bone liver, emphysema, COPD, heavy smoker Status: Active Sister 2 Comments: morbidly obese, chronic pain, immune disorder Status: Active Social History Name Dates Details Alcohol Use Comments: excess in past restart. now not drinking since beginning 04-04 Status: Active Caffeine Use Comments: 1 QD Status: Active Current Work/Study Status Comments: Full-time, [employer], [employer]ist important not go to protestant Status: Active Exercise History Comments: Inactive Status: Active Living Situation Comments: , Lives with spouse Status: Active No Drug Use Status: Active Tobacco Use Comments: 2 can smokeless per week, cigarettes quit 1991. Status: Active Tobacco Use Comments: chew Status: Active Tobacco use: Uses chewing tobacco. Comments: rarely updated 01-28-12 Status: Inactive Vital Signs Date Test Result Details :37 Temperature 97.8 f Comments: Method: Temporal Pulse 74 /min Comments: Pattern: Regular Respiration Rate 20 /min Comments: Pattern: Unlabored O2 SAT 98 % Comments: Room air BP Systolic 120 mm[Hg] Comments: Patient Position: Sitting; Cuff Location: Left Arm; Cuff Size: Large BP Diastolic 80 mm[Hg] Comments: Patient Position: Sitting; Cuff Location: Left Arm; Cuff Size: Large Weight 339 lb Height 72 in Body Mass Index Calculated 45.98 kg/m2 Body Surface Area Calculated 2.67 m2 :12 Temperature 97.9 f Comments: Method: Temporal Pulse 74 /min Comments: Pattern: Regular Respiration Rate 20 /min Comments: Pattern: Unlabored O2 SAT 95 % Comments: Room air BP Systolic 122 mm[Hg] Comments: Patient Position: Sitting; Cuff Location: Left Arm; Cuff Size: Large BP Diastolic 80 mm[Hg] Comments: Patient Position: Sitting; Cuff Location: Left Arm; Cuff Size: Large Weight 316 lb Height 72 in Body Mass Index Calculated 42.86 kg/m2 Body Surface Area Calculated 2.59 m2 :04 Temperature 97.6 f Comments: Method: Temporal Pulse 80 /min Comments: Pattern: Regular Respiration Rate 20 /min Comments: Pattern: Unlabored O2 SAT 95 % Comments: Room air BP Systolic 132 mm[Hg] Comments: Patient Position: Sitting; Cuff Location: Left Arm; Cuff Size: Large BP Diastolic 86 mm[Hg] Comments: Patient Position: Sitting; Cuff Location: Left Arm; Cuff Size: Large Weight 306 lb Height 72 in Body Mass Index Calculated 41.5 kg/m2 Body Surface Area Calculated 2.55 m2 :37 Temperature 97.6 f Comments: Method: Temporal Pulse 80 /min Comments: Pattern: Regular Respiration Rate 20 /min Comments: Pattern: Unlabored O2 SAT 97 % Comments: Room air BP Systolic 124 mm[Hg] Comments: Patient Position: Sitting; Cuff Location: Left Arm; Cuff Size: Large BP Diastolic 80 mm[Hg] Comments: Patient Position: Sitting; Cuff Location: Left Arm; Cuff Size: Large Weight 298 lb Height 72 in Body Mass Index Calculated 40.42 kg/m2 Body Surface Area Calculated 2.52 m2 :39 Temperature 97.1 f Comments: Method: Temporal Pulse 82 /min Comments: Pattern: Regular Respiration Rate 18 /min Comments: Pattern: Unlabored O2 SAT 98 % Comments: Room air BP Systolic 120 mm[Hg] Comments: Patient Position: Sitting; Cuff Location: Left Arm; Cuff Size: Large BP Diastolic 80 mm[Hg] Comments: Patient Position: Sitting; Cuff Location: Left Arm; Cuff Size: Large Weight 270 lb Height 72 in Body Mass Index Calculated 36.62 kg/m2 Body Surface Area Calculated 2.42 m2 :14 Temperature 98.1 f Comments: Method: Temporal Pulse 63 /min Comments: Pattern: Regular Respiration Rate 16 /min Comments: Pattern: Unlabored O2 SAT 99 % Comments: Room air BP Systolic 118 mm[Hg] Comments: Patient Position: Sitting; Cuff Location: Left Arm; Cuff Size: Standard BP Diastolic 70 mm[Hg] Comments: Patient Position: Sitting; Cuff Location: Left Arm; Cuff Size: Standard Weight 229 lb Height 73 in Body Mass Index Calculated 30.21 kg/m2 Body Surface Area Calculated 2.28 m2 :05 Temperature 97.6 f Comments: Method: Temporal Pulse 70 /min Comments: Pattern: Regular Respiration Rate 18 /min Comments: Pattern: Unlabored O2 SAT 98 % Comments: Room air BP Systolic 120 mm[Hg] Comments: Patient Position: Sitting; Cuff Location: Left Arm; Cuff Size: Large BP Diastolic 80 mm[Hg] Comments: Patient Position: Sitting; Cuff Location: Left Arm; Cuff Size: Large Weight 207 lb Height 73 in Body Mass Index Calculated 27.31 kg/m2 Body Surface Area Calculated 2.18 m2 :28 Temperature 97.7 f Pulse 61 /min Comments: Pattern: Regular Respiration Rate 17 /min Comments: Pattern: Unlabored O2 SAT 98 % Comments: Room air BP Systolic 138 mm[Hg] Comments: Patient Position: Sitting; Cuff Location: Left Arm; Cuff Size: Standard BP Diastolic 72 mm[Hg] Comments: Patient Position: Sitting; Cuff Location: Left Arm; Cuff Size: Standard Weight 204.125 lb Height 73 in Body Mass Index Calculated 26.93 kg/m2 Body Surface Area Calculated 2.17 m2 :22 Pulse 66 /min Comments: Pattern: Regular Respiration Rate 16 /min Comments: Pattern: Unlabored O2 SAT 98 % Comments: Room air BP Systolic 120 mm[Hg] Comments: Patient Position: Sitting; Cuff Location: Left Arm; Cuff Size: Standard BP Diastolic 82 mm[Hg] Comments: Patient Position: Sitting; Cuff Location: Left Arm; Cuff Size: Standard Weight 208 lb Height 73 in Body Mass Index Calculated 27.44 kg/m2 Body Surface Area Calculated 2.19 m2 :26 Temperature 97.6 f Comments: Method: Temporal Pulse 74 /min Comments: Pattern: Regular Respiration Rate 18 /min Comments: Pattern: Unlabored O2 SAT 97 % Comments: Room air BP Systolic 114 mm[Hg] Comments: Patient Position: Sitting; Cuff Location: Left Arm; Cuff Size: Standard BP Diastolic 74 mm[Hg] Comments: Patient Position: Sitting; Cuff Location: Left Arm; Cuff Size: Standard Weight 212 lb Height 73 in Body Mass Index Calculated 27.97 kg/m2 Body Surface Area Calculated 2.21 m2 :23 Temperature 97.6 f Pulse 61 /min Comments: Pattern: Regular Respiration Rate 16 /min Comments: Pattern: Unlabored O2 SAT 97 % Comments: Room air BP Systolic 102 mm[Hg] Comments: Patient Position: Sitting; Cuff Location: Left Arm; Cuff Size: Standard BP Diastolic 62 mm[Hg] Comments: Patient Position: Sitting; Cuff Location: Left Arm; Cuff Size: Standard Weight 253.25 lb Height 73 in Body Mass Index Calculated 33.41 kg/m2 Body Surface Area Calculated 2.38 m2 :28 Temperature 96 f Comments: Method: Temporal Pulse 68 /min Comments: Pattern: Regular Respiration Rate 16 /min Comments: Pattern: Unlabored O2 SAT 98 % Comments: Room air BP Systolic 128 mm[Hg] Comments: Patient Position: Sitting; Cuff Location: Left Arm; Cuff Size: Standard BP Diastolic 74 mm[Hg] Comments: Patient Position: Sitting; Cuff Location: Left Arm; Cuff Size: Standard Weight 282 lb Height 73 in Body Mass Index Calculated 37.21 kg/m2 Body Surface Area Calculated 2.49 m2 :51 Temperature 97.6 f Comments: Method: Oral Pulse 62 /min Comments: Pattern: Regular Respiration Rate 18 /min Comments: Pattern: Unlabored O2 SAT 97 % Comments: Room air BP Systolic 100 mm[Hg] Comments: Patient Position: Sitting; Cuff Location: Left Arm; Cuff Size: Standard BP Diastolic 62 mm[Hg] Comments: Patient Position: Sitting; Cuff Location: Left Arm; Cuff Size: Standard Weight 313 lb Height 73 in Body Mass Index Calculated 41.29 kg/m2 Body Surface Area Calculated 2.6 m2 :44 Temperature 95.4 f Comments: Method: Oral Pulse 68 /min Comments: Pattern: Regular Respiration Rate 18 /min Comments: Pattern: Unlabored O2 SAT 96 % Comments: Room air BP Systolic 110 mm[Hg] Comments: Patient Position: Sitting; Cuff Location: Left Arm; Cuff Size: Standard BP Diastolic 68 mm[Hg] Comments: Patient Position: Sitting; Cuff Location: Left Arm; Cuff Size: Standard Weight 336 lb Height 73 in Body Mass Index Calculated 44.33 kg/m2 Body Surface Area Calculated 2.68 m2 :54 Temperature 98.8 f Comments: Method: Oral Pulse 60 /min Comments: Pattern: Regular Respiration Rate 16 /min Comments: Pattern: Unlabored O2 SAT 96 % Comments: Room air BP Systolic 150 mm[Hg] Comments: Patient Position: Sitting; Cuff Location: Left Arm; Cuff Size: Standard BP Diastolic 80 mm[Hg] Comments: Patient Position: Sitting; Cuff Location: Left Arm; Cuff Size: Standard Weight 350 lb Height 73 in Body Mass Index Calculated 46.18 kg/m2 Body Surface Area Calculated 2.73 m2 :50 Comments: refuse weight because back up Temperature 97.6 f Comments: Method: Temporal Pulse 77 /min Comments: Pattern: Regular Respiration Rate 16 /min Comments: Pattern: Unlabored O2 SAT 97 % Comments: Room air BP Systolic 128 mm[Hg] Comments: Patient Position: Sitting; Cuff Location: Left Arm; Cuff Size: Standard BP Diastolic 78 mm[Hg] Comments: Patient Position: Sitting; Cuff Location: Left Arm; Cuff Size: Standard Height 73 in :04 Comments: declines weight check Temperature 98.7 f Comments: Method: Temporal Pulse 95 /min Comments: Pattern: Regular Respiration Rate 16 /min Comments: Pattern: Unlabored O2 SAT 93 % Comments: Room air BP Systolic 136 mm[Hg] Comments: Patient Position: Sitting; Cuff Location: Left Arm; Cuff Size: Standard BP Diastolic 80 mm[Hg] Comments: Patient Position: Sitting; Cuff Location: Left Arm; Cuff Size: Standard Height 73 in :13 Temperature 98 f Comments: Method: Oral Pulse 78 /min Comments: Pattern: Regular Respiration Rate 18 /min Comments: Pattern: Unlabored O2 SAT 97 % Comments: Room air BP Systolic 138 mm[Hg] Comments: Patient Position: Sitting; Cuff Location: Left Arm; Cuff Size: Standard BP Diastolic 78 mm[Hg] Comments: Patient Position: Sitting; Cuff Location: Left Arm; Cuff Size: Standard Height 73 in :48 Comments: refuses weight but thinks 350 with labs before visits about Temperature 97 f Comments: Method: Temporal Pulse 78 /min Comments: Pattern: Regular Respiration Rate 16 /min Comments: Pattern: Unlabored O2 SAT 96 % Comments: Room air BP Systolic 128 mm[Hg] Comments: Patient Position: Sitting; Cuff Location: Left Arm; Cuff Size: Standard BP Diastolic 84 mm[Hg] Comments: Patient Position: Sitting; Cuff Location: Left Arm; Cuff Size: Standard Height 73 in :48 Comments: Patietn declined weight Temperature 97.9 f Comments: Method: Temporal Pulse 86 /min Comments: Pattern: Regular Respiration Rate 18 /min Comments: Pattern: Unlabored O2 SAT 93 % Comments: Room air BP Systolic 134 mm[Hg] Comments: Patient Position: Sitting; Cuff Location: Left Arm; Cuff Size: Standard BP Diastolic 82 mm[Hg] Comments: Patient Position: Sitting; Cuff Location: Left Arm; Cuff Size: Standard Height 73 in :56 Comments: does not want weighed today Temperature 97.4 f Comments: Method: Oral Pulse 78 /min Comments: Pattern: Regular Respiration Rate 16 /min Comments: Pattern: Unlabored BP Systolic 132 mm[Hg] Comments: Patient Position: Sitting; Cuff Location: Left Arm; Cuff Size: Standard BP Diastolic 76 mm[Hg] Comments: Patient Position: Sitting; Cuff Location: Left Arm; Cuff Size: Standard Height 73 in :07 Comments: refuses weight/ht Temperature 98.2 f Comments: Method: Oral Pulse 80 /min Comments: Pattern: Regular Respiration Rate 20 /min Comments: Pattern: Unlabored BP Systolic 130 mm[Hg] Comments: Patient Position: Sitting; Cuff Location: Left Arm; Cuff Size: Large BP Diastolic 82 mm[Hg] Comments: Patient Position: Sitting; Cuff Location: Left Arm; Cuff Size: Large :16 Temperature 97.9 f Comments: Method: Oral Pulse 72 /min Comments: Pattern: Regular Respiration Rate 20 /min Comments: Pattern: Unlabored BP Systolic 126 mm[Hg] Comments: Patient Position: Sitting; Cuff Location: Left Arm; Cuff Size: Large BP Diastolic 80 mm[Hg] Comments: Patient Position: Sitting; Cuff Location: Left Arm; Cuff Size: Large Height 73 in :36 Comments: declined weight Temperature 98 f Comments: Method: Oral Pulse 72 /min Comments: Pattern: Regular Respiration Rate 16 /min Comments: Pattern: Unlabored BP Systolic 136 mm[Hg] Comments: Patient Position: Sitting; Cuff Location: Left Arm; Cuff Size: Standard BP Diastolic 78 mm[Hg] Comments: Patient Position: Sitting; Cuff Location: Left Arm; Cuff Size: Standard Height 73 in :46 Temperature 97.9 f Comments: Method: Oral Pulse 70 /min Comments: Pattern: Regular Respiration Rate 20 /min Comments: Pattern: Unlabored BP Systolic 124 mm[Hg] Comments: Patient Position: Sitting; Cuff Location: Left Arm; Cuff Size: Standard BP Diastolic 80 mm[Hg] Comments: Patient Position: Sitting; Cuff Location: Left Arm; Cuff Size: Standard Height 73 in :32 Temperature 97.9 f Comments: Method: Oral Pulse 72 /min Comments: Pattern: Regular Respiration Rate 20 /min Comments: Pattern: Unlabored BP Systolic 126 mm[Hg] Comments: Patient Position: Sitting; Cuff Location: Left Arm; Cuff Size: Large BP Diastolic 82 mm[Hg] Comments: Patient Position: Sitting; Cuff Location: Left Arm; Cuff Size: Large Height 73 in :34 Comments: patient refuses weight check Temperature 97.6 f Comments: Method: Oral Pulse 70 /min Comments: Pattern: Regular Respiration Rate 20 /min Comments: Pattern: Unlabored BP Systolic 130 mm[Hg] Comments: Patient Position: Sitting; Cuff Location: Left Arm; Cuff Size: Standard BP Diastolic 84 mm[Hg] Comments: Patient Position: Sitting; Cuff Location: Left Arm; Cuff Size: Standard Height 73 in :53 Comments: patient refuses weight Temperature 97.6 f Comments: Method: Oral Pulse 68 /min Comments: Pattern: Regular Respiration Rate 20 /min Comments: Pattern: Unlabored BP Systolic 124 mm[Hg] Comments: Patient Position: Sitting; Cuff Location: Left Arm; Cuff Size: Standard BP Diastolic 84 mm[Hg] Comments: Patient Position: Sitting; Cuff Location: Left Arm; Cuff Size: Standard Height 73 in :31 Comments: patient refused weight -- states he lost 65 pounds last year and gained it back. Pulse 78 /min Comments: Pattern: Regular Respiration Rate 18 /min Comments: Pattern: Unlabored BP Systolic 130 mm[Hg] Comments: Patient Position: Sitting; Cuff Location: Left Arm; Cuff Size: Standard BP Diastolic 86 mm[Hg] Comments: Patient Position: Sitting; Cuff Location: Left Arm; Cuff Size: Standard :41 Pulse 70 /min Comments: Pattern: Regular Respiration Rate 18 /min Comments: Pattern: Unlabored BP Systolic 118 mm[Hg] Comments: Patient Position: Sitting; Cuff Location: Left Arm; Cuff Size: Standard BP Diastolic 80 mm[Hg] Comments: Patient Position: Sitting; Cuff Location: Left Arm; Cuff Size: Standard :14 Temperature 98.2 f Comments: Method: Oral Pulse 78 /min Comments: Pattern: Regular Respiration Rate 18 /min Comments: Pattern: Unlabored O2 SAT 97 % Comments: Room air BP Systolic 116 mm[Hg] Comments: Patient Position: Sitting; Cuff Location: Left Arm; Cuff Size: Standard BP Diastolic 78 mm[Hg] Comments: Patient Position: Sitting; Cuff Location: Left Arm; Cuff Size: Standard Weight 0 lb Height 0 in Head Circumference 0.00 cm :44 Temperature 98.2 f Comments: Method: Oral Pulse 64 /min Comments: Pattern: Regular Respiration Rate 18 /min Comments: Pattern: Unlabored O2 SAT 97 % Comments: Room air BP Systolic 124 mm[Hg] Comments: Patient Position: Sitting; Cuff Location: Left Arm; Cuff Size: Large BP Diastolic 84 mm[Hg] Comments: Patient Position: Sitting; Cuff Location: Left Arm; Cuff Size: Large Weight 0 lb Height 0 in Head Circumference 0.00 cm :33 Temperature 98.3 f Comments: Method: Oral Pulse 64 /min Comments: Pattern: Regular Respiration Rate 10 /min Comments: Pattern: Unlabored BP Systolic 114 mm[Hg] Comments: Patient Position: Sitting; Cuff Location: Left Arm; Cuff Size: Large BP Diastolic 78 mm[Hg] Comments: Patient Position: Sitting; Cuff Location: Left Arm; Cuff Size: Large Weight 292.4375 lb Height 0 in Head Circumference 0.00 cm :24 Temperature 98.3 f Comments: Method: Oral Pulse 65 /min Comments: Pattern: Regular Respiration Rate 18 /min Comments: Pattern: Unlabored O2 SAT 96 % Comments: Room air BP Systolic 120 mm[Hg] Comments: Patient Position: Sitting; Cuff Location: Left Arm; Cuff Size: Standard BP Diastolic 84 mm[Hg] Comments: Patient Position: Sitting; Cuff Location: Left Arm; Cuff Size: Standard Weight 303.3125 lb Height 0 in Head Circumference 0.00 cm :00 Pulse 74 /min Comments: Pattern: Regular Respiration Rate 18 /min Comments: Pattern: Unlabored BP Systolic 124 mm[Hg] Comments: Patient Position: Sitting; Cuff Location: Left Arm; Cuff Size: Large BP Diastolic 80 mm[Hg] Comments: Patient Position: Sitting; Cuff Location: Left Arm; Cuff Size: Large Weight 322 lb Height 0 in Head Circumference 0.00 cm :06 Pulse 70 /min Comments: Pattern: Regular Respiration Rate 16 /min Comments: Pattern: Unlabored BP Systolic 126 mm[Hg] Comments: Patient Position: Sitting; Cuff Location: Left Arm; Cuff Size: Large BP Diastolic 82 mm[Hg] Comments: Patient Position: Sitting; Cuff Location: Left Arm; Cuff Size: Large Weight 351 lb Height 0 in Head Circumference 0.00 cm :45 Temperature 98.4 f Comments: Method: Oral Pulse 74 /min Comments: Pattern: Regular Respiration Rate 18 /min Comments: Pattern: Unlabored BP Systolic 126 mm[Hg] Comments: Patient Position: Sitting; Cuff Location: Left Arm; Cuff Size: Standard BP Diastolic 84 mm[Hg] Comments: Patient Position: Sitting; Cuff Location: Left Arm; Cuff Size: Standard Weight 0 lb Height 0 in Head Circumference 0.00 cm :35 Temperature 97.6 f Comments: Method: Oral Pulse 76 /min Comments: Pattern: Regular Respiration Rate 20 /min Comments: Pattern: Unlabored BP Systolic 130 mm[Hg] Comments: Patient Position: Sitting; Cuff Location: Left Arm; Cuff Size: Standard BP Diastolic 84 mm[Hg] Comments: Patient Position: Sitting; Cuff Location: Left Arm; Cuff Size: Standard Weight 334 lb Height 0 in Head Circumference 0.00 cm :23 Temperature 97.6 f Comments: Method: Oral Pulse 72 /min Comments: Pattern: Regular Respiration Rate 20 /min Comments: Pattern: Unlabored BP Systolic 126 mm[Hg] Comments: Patient Position: Sitting; Cuff Location: Left Arm; Cuff Size: Standard BP Diastolic 84 mm[Hg] Comments: Patient Position: Sitting; Cuff Location: Left Arm; Cuff Size: Standard Weight 331 lb Height 0 in Head Circumference 0.00 cm :01 Temperature 97.4 f Comments: Method: Oral Pulse 70 /min Comments: Pattern: Regular Respiration Rate 18 /min Comments: Pattern: Undefined BP Systolic 134 mm[Hg] Comments: Patient Position: Sitting; Cuff Location: Undefined; Cuff Size: Undefined BP Diastolic 92 mm[Hg] Comments: Patient Position: Sitting; Cuff Location: Undefined; Cuff Size: Undefined Weight 0 lb Height 0 in Head Circumference 0.00 cm :41 Temperature 97.6 f Comments: Method: Oral Pulse 66 /min Comments: Pattern: Regular Respiration Rate 14 /min Comments: Pattern: Unlabored BP Systolic 118 mm[Hg] Comments: Patient Position: Sitting; Cuff Location: Left Arm; Cuff Size: Standard BP Diastolic 78 mm[Hg] Comments: Patient Position: Sitting; Cuff Location: Left Arm; Cuff Size: Standard Weight 331.5 lb Height 73 in Body Mass Index Calculated 43.74 kg/m2 Body Surface Area Calculated 2.67 m2 Head Circumference 0.00 cm Results Date Description Value Details [id number] Basic Metabolic Profile (BMP) Comments: [facility] [id number] [place], [place], [id number] GAP 10 (Normal) Range: 5-15 CO2 27.0 mmol/L (Normal) Range: 21.0-32.0 CL 102 mmol/L (Normal) Range: 98-107 K 3.5 mmol/L (Normal) Range: 3.5-5.1 NA 139 mmol/L (Normal) Range: 136-145 CA 9.2 mg/dL (Normal) Range: 8.5-10.1 BUN/CRE 18.4 {RATIO} (Normal) Range: 10-20 Estimated CRCL 132.85 ml/min (Normal) EST GFR - AA 149 mL/min (Normal) Comments: GFR Calc EST GFR 123 mL/min (Normal) Comments: Non- GFR Calc CREAT,SERUM 0.71 mg/dL (Normal) Range: 0.70-1.30 Comments: The validity of the calculated GFR AND GFRAA in patients over70 years has not been determined. Clinical correlation isessential. BUN 13 mg/dL (Normal) Range: 7-18 GLU 134 mg/dL (Abnormal) Range: 74-106 Comments: Fasting Glucose result greater than or equal to 126 mg/dLsuggests DIABETES MELLITUS per A.D.A. criteria.Please note revised GLUCOSE reference range esxqsixiu90/02/2018. 0-Vzo-[id number]:31 CBC W/Diff, Automated Comments: [facility] [address] [place], [place], [id number] Absolute Lymph 2.67 {X10_3/ul} (Normal) Range: 0.83-4.51 Absolute Neut 5.9 {X10_3/uL} (Normal) Range: 2.0-7.7 IM GRAN % 0.400 % (Normal) Range: 0.0-0.9 Comments: IG% - Immature Granulocytes (promyelocytes, myelocytes andmetamyelocytes) > 1% indicates that a LEFT SHIFT is Present. BASO% 0.6 % (Normal) Range: 0-1 EO% 4.2 % (Normal) Range: 0-5 MONO% 6.4 % (Normal) Range: 0-10 LY% 27.5 % (Normal) Range: 19-41 NEUT% 60.9 % (Normal) Range: 47-70 MPV 8.9 fL (Normal) Range: 6.2-12.0 PLT 247 K/mm3 (Normal) Range: 150-450 RDW SD 42.3 fL (Normal) Range: 35.1-43.9 RDW CV 13.1 % (Normal) Range: 11.6-14.6 MCHC 33.0 {g/gl} (Normal) Range: 32-36 MCH 29.0 pg (Normal) Range: 27.0-32.0 MCV 87.8 fL (Normal) Range: 80-94 HCT 44.8 % (Normal) Range: 40-54 HGB 14.8 g/dL (Normal) Range: 13.0-16.5 RBC 5.10 {M/mm3} (Normal) Range: 4.6-6.2 WBC 9.7 K/mm3 (Normal) Range: 4.4-11.0 :31 Troponin-I Comments: [facility] [address] [place], [address] TROPONIN-I < 0.015 ng/mL (Normal) Comments: TROPONIN-I EXPECTED VALUES <0.045 Negative 0.045 - 0.590 Consistent with Cardiac Damage > OR = 0.600 Critical Value Not every elevated troponin is indicative of CA. T hesevalues should be used with clinical judgement in examiningthe patient's clinical picture for diagnosis. To establisha diagnosis of CA versus myocardial injury, there must be ademonstrated rise and/ or fall in the troponin values, inaddition to ischemic symptoms, EKG changes, new regionalwall motion abnormality, and/or angiographical evidence. PLEASE NOTE: REFERENCE RANGES EDITED 03/31/1828-Jul-201895-Eea-667050:19 HGB A1C (59309) Comments: PATIENT NOT FASTINGPERFORMED BY: [facility] [id number] Hemoglobin A1c 5.8 % (Abnormal) Range: 4.8-5.6 Comments: . Prediabetes: 5.7 - 6.4 Diabetes: >6.4 Glycemic control for adults with diabetes: <7.0 45-Igk-[id number]:19 TSH (19608) Comments: PATIENT NOT FASTINGPERFORMED BY: [facility] [id number] TSH 3.030 {uIU/mL} (Normal) Range: 0.450-4.500 73-Skv-086391:19 CBC, Platelets & Auto Diff Comments: PATIENT NOT FASTINGPERFORMED BY: [place] [id number] [facility] [id number] ([id number]) Immature Grans (Abs) 0.0 {x10E3/uL} (Normal) Range: 0.0-0.1 Immature Granulocytes 0 % (Normal) Baso (Absolute) 0.0 {x10E3/uL} (Normal) Range: 0.0-0.2 Eos (Absolute) 0.2 {x10E3/uL} (Normal) Range: 0.0-0.4 Monocytes(Absolute) 0.9 {x10E3/uL} (Normal) Range: 0.1-0.9 Lymphs (Absolute) 1.7 {x10E3/uL} (Normal) Range: 0.7-3.1 Neutrophils (Absolute) 8.2 {x10E3/uL} (Abnormal) Range: 1.4-7.0 Basos 0 % (Normal) Eos 2 % (Normal) Monocytes 8 % (Normal) Lymphs 15 % (Normal) Neutrophils 75 % (Normal) Platelets 253 {x10E3/uL} (Normal) Range: 150-379 RDW 13.8 % (Normal) Range: 12.3-15.4 MCHC 33.1 g/dL (Normal) Range: 31.5-35.7 MCH 28.8 pg (Normal) Range: 26.6-33.0 MCV 87 fL (Normal) Range: 79-97 Hematocrit 44.4 % (Normal) Range: 37.5-51.0 Hemoglobin 14.7 g/dL (Normal) Range: 13.0-17.7 RBC 5.10 {x10E6/uL} (Normal) Range: 4.14-5.80 WBC 11.1 {x10E3/uL} (Abnormal) Range: 3.4-10.8 53-Kfp-[id number]:19 Metabolic Panel, Comprehensive Comments: PATIENT NOT FASTINGPERFORMED BY: Makara Yyryju5864 [facility] [id number] ([id number]) ALT (SGPT) 37 [iU]/L (Normal) Range: 0-44 AST (SGOT) 27 [iU]/L (Normal) Range: 0-40 Alkaline Phosphatase 103 [iU]/L (Normal) Range: 39-117 Bilirubin, Total 0.3 mg/dL (Normal) Range: 0.0-1.2 A/G Ratio 1.5 (Normal) Range: 1.2-2.2 Globulin, Total 2.6 g/dL (Normal) Range: 1.5-4.5 Albumin 4.0 g/dL (Normal) Range: 3.5-5.5 Protein, Total 6.6 g/dL (Normal) Range: 6.0-8.5 Calcium 9.8 mg/dL (Normal) Range: 8.7-10.2 Carbon Dioxide, Total 20 mmol/L (Normal) Range: 20-29 Chloride 104 mmol/L (Normal) Range: 96-106 Potassium 4.7 mmol/L (Normal) Range: 3.5-5.2 Sodium 145 mmol/L (Abnormal) Range: 134-144 BUN/Creatinine Ratio 25 (Abnormal) Range: 9-20 eGFR If Africn Am 116 mL/min/1.73 (Normal) eGFR If NonAfricn Am 100 mL/min/1.73 (Normal) Creatinine 0.81 mg/dL (Normal) Range: 0.76-1.27 BUN 20 mg/dL (Normal) Range: 6-24 Glucose 131 mg/dL (Abnormal) Range: 65-99 90-Kyj-542931:59 PSA (Prostate Specific Comments: PATIENT NOT FASTINGPERFORMED BY: [facility] Kqgwcg4883 [facility] HospitalOxagenThe [facility] [id number] Antigen), Screening (60300) Prostate Specific Ag, 1.2 ng/mL (Normal) Range: 0.0-4.0 Serum Comments: Yany ECLIA methodology. .According to the [place] [employer], Serum PSA shoulddecrease and remain at undetectable levels after radicalprostatectomy. The AUA defines biochemical recurrence as an initialPSA value 0.2 ng/mL or greater followed by a subsequent confirmatoryPSA value 0.2 ng/mL or greater.Values obtained with d ifferent assay methods or kits cannot be usedinterchangeably. Results cannot be interpreted as absolute evidenceof the presence or absence of malignant disease. :21 MICROALBUMIN: CREATININE RATIO Comments: PATIENT NOT FASTINGPERFORMED BY: [facility]otechThe [facility] [id number] (10843) AND (52069) Alb/Creat Ratio 1.6 {mg/g_creat} (Normal) Range: 0.0-30.0 Albumin, Urine 3.1 ug/mL (Normal) Creatinine, Urine 193.0 mg/dL (Normal) :21 URINALYSIS (46881) Comments: PATIENT NOT FASTINGPERFORMED BY: [employer]6370 [facility]BSWAPThe [facility] [id number] Microscopic Examination MICNIP (Normal) Comments: Microscopic not indicated and not performed. Nitrite, Urine Negative (Normal) Urobilinogen,Semi-Qn 0.2 mg/dL (Normal) Range: 0.2-1.0 Bilirubin Negative (Normal) Occult Blood Negative (Normal) Ketones Negative (Normal) Glucose Negative (Normal) Protein Negative (Normal) WBC Esterase Negative (Normal) Appearance Clear (Normal) Urine-Color Yellow (Normal) pH 5.0 (Normal) Range: 5.0-7.5 Specific [place] 1.025 (Normal) Range: 1.005-1.030 :21 CBC WITH MANUAL DIFF Comments: PATIENT NOT FASTINGPERFORMED BY: [employer] Knsukr2340 [facility] [employer] [facility]otesNov[facility] Hospital [id number] Information: NURSE DRAW (36062) Immature Grans (Abs) 0.0 {x10E3/uL} (Normal) Range: 0.0-0.1 Immature Granulocytes 0 % (Normal) Baso (Absolute) 0.0 {x10E3/uL} (Normal) Range: 0.0-0.2 Eos (Absolute) 0.2 {x10E3/uL} (Normal) Range: 0.0-0.4 Monocytes(Absolute) 0.5 {x10E3/uL} (Normal) Range: 0.1-0.9 Lymphs (Absolute) 1.4 {x10E3/uL} (Normal) Range: 0.7-3.1 Neutrophils (Absolute) 6.3 {x10E3/uL} (Normal) Range: 1.4-7.0 Basos 0 % (Normal) Eos 2 % (Normal) Monocytes 6 % (Normal) Lymphs 16 % (Normal) Neutrophils 76 % (Normal) Platelets 238 {x10E3/uL} (Normal) Range: 150-379 RDW 13.6 % (Normal) Range: 12.3-15.4 MCHC 32.7 g/dL (Normal) Range: 31.5-35.7 MCH 29.2 pg (Normal) Range: 26.6-33.0 MCV 89 fL (Normal) Range: 79-97 Hematocrit 43.7 % (Normal) Range: 37.5-51.0 Hemoglobin 14.3 g/dL (Normal) Range: 13.0-17.7 RBC 4.89 {x10E6/uL} (Normal) Range: 4.14-5.80 WBC 8.4 {x10E3/uL} (Normal) Range: 3.4-10.8 :21 Metabolic Panel, Comprehensive Comments: PATIENT NOT FASTINGPERFORMED BY: [facility] Hmgpdp1681 [facility] [id number]; appt 03/31 (22317) ALT (SGPT) 34 [iU]/L (Normal) Range: 0-44 AST (SGOT) 37 [iU]/L (Normal) Range: 0-40 Alkaline Phosphatase 95 [iU]/L (Normal) Range: 39-117 Bilirubin, Total 0.5 mg/dL (Normal) Range: 0.0-1.2 A/G Ratio 1.4 (Normal) Range: 1.2-2.2 Globulin, Total 2.7 g/dL (Normal) Range: 1.5-4.5 Albumin 3.9 g/dL (Normal) Range: 3.5-5.5 Protein, Total 6.6 g/dL (Normal) Range: 6.0-8.5 Calcium 9.4 mg/dL (Normal) Range: 8.7-10.2 Carbon Dioxide, Total 23 mmol/L (Normal) Range: 18-29 Chloride 100 mmol/L (Normal) Range: 96-106 Potassium 4.5 mmol/L (Normal) Range: 3.5-5.2 Sodium 141 mmol/L (Normal) Range: 134-144 BUN/Creatinine Ratio 28 (Abnormal) Range: 9-20 eGFR If Africn Am 127 mL/min/1.73 (Normal) eGFR If NonAfricn Am 110 mL/min/1.73 (Normal) Creatinine 0.65 mg/dL (Abnormal) Range: 0.76-1.27 BUN 18 mg/dL (Normal) Range: 6-24 Glucose 128 mg/dL (Abnormal) Range: 65-99 96-Aes-11499:40 Basic Metabolic Profile (BMP) Comments: 'TROP' Serial specimen #1, #2, #3, or #4: [address] [place] [address] [address] [place], [address] GAP 7 (Normal) Range: 5-15 CO2 30.0 mmol/L (Normal) Range: 21.0-32.0 CL 106 mmol/L (Normal) Range: 98-107 K 4.4 mmol/L (Normal) Range: 3.5-5.1 NA 143 mmol/L (Normal) Range: 136-145 CA 8.8 mg/dL (Normal) Range: 8.5-10.1 BUN/CRE 17.7 {RATIO} (Normal) Range: 10-20 Estimated CRCL 104.81 ml/min (Normal) EST GFR - AA 112 mL/min (Normal) Comments: GFR Calc EST GFR 93 mL/min (Normal) Comments: Non- GFR Calc CREAT,SERUM 0.90 mg/dL (Normal) Range: 0.70-1.30 Comments: The validity of the calculated GFR AND GFRAA in patients over70 years has not been determined. Clinical correlation isessential. BUN 16 mg/dL (Normal) Range: 7-18 GLU 122 mg/dL (Abnormal) Range: 74-106 Comments: Fasting Glucose result from 100 to 125 mg/dLsuggests IMPAIRED HOMEOSTASIS per A.D.A. criteria.Please note revised GLUCOSE reference range rjfkvzoeo73/02/2018. 29-Urh-15976:40 CBC W/Diff, Automated Comments: [facility] [address] [place], [place], [id number] Absolute Lymph 2.28 {X10_3/ul} (Normal) Range: 0.83-4.51 Absolute Neut 6.5 {X10_3/uL} (Normal) Range: 2.0-7.7 IM GRAN % 0.500 % (Normal) Range: 0.0-0.9 Comments: IG% - Immature Granulocytes (promyelocytes, myelocytes andmetamyelocytes) > 1% indicates that a LEFT SHIFT is Present. BASO% 0.6 % (Normal) Range: 0-1 EO% 3.0 % (Normal) Range: 0-5 MONO% 8.0 % (Normal) Range: 0-10 LY% 22.8 % (Normal) Range: 19-41 NEUT% 65.1 % (Normal) Range: 47-70 MPV 8.6 fL (Normal) Range: 6.2-12.0 PLT 298 K/mm3 (Normal) Range: 150-450 RDW SD 45.4 fL (Abnormal) Range: 35.1-43.9 RDW CV 13.7 % (Normal) Range: 11.6-14.6 MCHC 33.3 {g/gl} (Normal) Range: 32-36 MCH 30.2 pg (Normal) Range: 27.0-32.0 MCV 90.6 fL (Normal) Range: 80-94 HCT 47.1 % (Normal) Range: 40-54 HGB 15.7 g/dL (Normal) Range: 13.0-16.5 RBC 5.20 {M/mm3} (Normal) Range: 4.6-6.2 WBC 10.0 K/mm3 (Normal) Range: 4.4-11.0 78-Kxv-11230:40 Troponin-I Comments: 'TROP' Serial specimen #1, #2, #3, or #4: [facility] [address] [place], [address] TROPONIN-I < 0.02 ng/mL (Normal) Comments: TROPONIN-I EXPECTED VALUES <0.05 NEGATIVE 0.06 - 0.59 AT RISK OF CA > OR = 0.60 SUGGEST CA 10-Rnl-644221:39 Basic Metabolic Profile (BMP) Comments: Has pt arrived? YComments: [facility] [address] [place], [place], [id number] GAP 9 (Normal) Range: 5-15 CO2 28.0 mmol/L (Normal) Range: 21.0-32.0 CL 106 mmol/L (Normal) Range: 98-107 K 3.9 mmol/L (Normal) Range: 3.5-5.1 NA 143 mmol/L (Normal) Range: 136-145 CA 8.5 mg/dL (Normal) Range: 8.5-10.1 BUN/CRE 21.1 {RATIO} (Abnormal) Range: 10-20 Estimated CRCL 124.11 ml/min (Normal) EST GFR - AA 137 mL/min (Normal) Comments: GFR Calc EST GFR 113 mL/min (Normal) Comments: Non- GFR Calc CREAT,SERUM 0.76 mg/dL (Normal) Range: 0.70-1.30 Comments: The validity of the calculated GFR AND GFRAA in patients over70 years has not been determined. Clinical correlation isessential. BUN 16 mg/dL (Normal) Range: 7-18 GLU 108 mg/dL (Normal) Range: 70-110 39-Fqr-715490:48 Basic Metabolic Profile (BMP) Comments: 'TROP' Serial specimen #1, #2, #3, or #4: [address] [place] [address] [address] [place], [place], [id number] GAP 9 (Normal) Range: 5-15 CO2 18.0 mmol/L (Abnormal) Range: 21.0-32.0 CL 122 mmol/L (Abnormal) Range: 98-107 K 2.4 mmol/L (Abnormal) Range: 3.5-5.1 Comments: Critical Result(s) Called at: 20:16:24 12/07/2017 by: Milena BLAS NA 149 mmol/L (Abnormal) Range: 136-145 CA 5.0 mg/dL (Abnormal) Range: 8.5-10.1 BUN/CRE 33.8 {RATIO} (Abnormal) Range: 10-20 Estimated CRCL 294.77 ml/min (Normal) EST GFR - AA 365 mL/min (Normal) Comments: GFR Calc EST GFR 302 mL/min (Normal) Comments: Non- GFR Calc CREAT,SERUM 0.32 mg/dL (Abnormal) Range: 0.70-1.30 Comments: The validity of the calculated GFR AND GFRAA in patients over70 years has not been determined. Clinical correlation isessential. BUN 11 mg/dL (Normal) Range: 7-18 GLU 72 mg/dL (Normal) Range: 70-110 12-Ebj-272118:48 CBC W/Diff, Automated Comments: [facility] [address] [place], [address] Absolute Lymph 2.40 {X10_3/ul} (Normal) Range: 0.83-4.51 Absolute Neut 3.9 {X10_3/uL} (Normal) Range: 2.0-7.7 IM GRAN % 0.400 % (Normal) Range: 0.0-0.9 Comments: IG% - Immature Granulocytes (promyelocytes, myelocytes andmetamyelocytes) > 1% indicates that a LEFT SHIFT is Present. BASO% 0.4 % (Normal) Range: 0-1 EO% 3.1 % (Normal) Range: 0-5 MONO% 8.2 % (Normal) Range: 0-10 LY% 33.4 % (Normal) Range: 19-41 NEUT% 54.5 % (Normal) Range: 47-70 MPV 8.9 fL (Normal) Range: 6.2-12.0 PLT 208 K/mm3 (Normal) Range: 150-450 RDW SD 45.9 fL (Abnormal) Range: 35.1-43.9 RDW CV 13.8 % (Normal) Range: 11.6-14.6 MCHC 32.1 {g/gl} (Normal) Range: 32-36 MCH 29.4 pg (Normal) Range: 27.0-32.0 MCV 91.4 fL (Normal) Range: 80-94 HCT 44.5 % (Normal) Range: 40-54 HGB 14.3 g/dL (Normal) Range: 13.0-16.5 RBC 4.87 {M/mm3} (Normal) Range: 4.6-6.2 WBC 7.2 K/mm3 (Normal) Range: 4.4-11.0 31-Nbe-715159:48 Troponin-I Comments: 'TROP' Serial specimen #1, #2, #3, or #4: [address] [place] [address] [id number] [place], [place], [address] TROPONIN-I < 0.02 ng/mL (Normal) Comments: TROPONIN-I EXPECTED VALUES <0.05 NEGATIVE 0.06 - 0.59 AT RISK OF CA > OR = 0.60 SUGGEST CA 06-Zqf-055556:41 HEPATIC FUNCTION PANEL Comments: PATIENT WAS FASTINGPERFORMED BY: [facility] [place] [address] [id number] BY: [employer] [facility] [id number] (64929) ALT (SGPT) 55 [iU]/L (Abnormal) Range: 0-44 AST (SGOT) 67 [iU]/L (Abnormal) Range: 0-40 Alkaline Phosphatase, S 87 [iU]/L (Normal) Range: 39-117 Bilirubin, Direct 0.22 mg/dL (Normal) Range: 0.00-0.40 Bilirubin, Total 0.7 mg/dL (Normal) Range: 0.0-1.2 Albumin, Serum 3.7 g/dL (Normal) Range: 3.5-5.5 Protein, Total, Serum 6.1 g/dL (Normal) Range: 6.0-8.5 65-Ngl-696548:41 LIPOPROTEIN, BLD, BY NMR Comments: PATIENT WAS FASTINGPERFORMED BY: [employer] [address] [id number] BY: [employer] [address] [place] [address] [id number]; fu 1-16 DB (68665) LP-IR Score 76 (Abnormal) Comments: INSULIN RESISTANCE MARKER <--Insulin Sensitive Insulin Resistant--> Percentile in Reference PopulationInsulin Resistance ScoreLP-IR Score Low 25th 50th 75th High <27 27 45 63 >63LP-IR Score is inaccurate if patient is non-fasting. .The LP-IR score is a laboratory developed i christina that has beenassociated with insulin resistance and diabetes risk and should beused as one component of a physician's clinical assessment. TheLP-IR score listed above has not been cleared by the [place] Food andDrug Administration. LDL Size 19.7 nm (Normal) Comments: INTERPRETATIVE INFORMATION PARTICLE CONCENTRATION AND SIZE <--Lower CVD Risk Highe r CVD Risk--> LDL AND HDL PARTICLES Percentile in Reference Population HDL-P (total) High 75th 50th 25th Low >34.9 34.9 30.5 26.7 <26.7 . Small LDL-P Low 25th 50th 75th High <117 117 527 839 >839 . LDL Size <-Large (Pattern A)-> <-Small (Pattern B)-> 23.0 20.6 20.5 19.0 Small LDL-P and LDL Size are associated with CVD risk, but not afterLDL-P is taken into account. .These assays were developed and their performance characteristicsdetermined by [employer]. These assays have not been cleared by [place] Food and Drug Administration. The clinical utility of theselaboratory values have not been fully established. Small LDL-P 466 nmol/L (Normal) HDL-P (Total) 50.4 umol/L (Normal) Cholesterol, Total 155 mg/dL (Normal) Range: 100-199 Triglycerides 256 mg/dL (Abnormal) Range: 0-149 HDL-C 44 mg/dL (Normal) LDL-C 60 mg/dL (Normal) Range: 0-99 Comments: . Optimal < 100 Above optimal 100 - 129 Borderline 1 30 - 159 High 160 - 189 Very high > 189 .LDL-C is inaccurate if patient is non-fasting. LDL-P 634 nmol/L (Normal) Comments: Low < 1000 Moderate 1000 - 1299 Borderline-High 1300 - 1599 High 1600 - 2000 Very High > 2000 66-Htk-853584:41 Hemoglobin Glyclated (HGB Comments: now and every in three months (approximately); PATIENT WAS FASTINGPERFORMED BY: [facility]1447 [facility] [id number] BY: [facility] [id number] A1C) (72047) Hemoglobin A1c 5.2 % (Normal) Range: 4.8-5.6 Comments: . Pre-diabetes: 5.7 - 6.4 Diabetes: >6.4 Glycemic control for adults with diabetes: <7.0 :34 HGB A1C (71410) Comments: PATIENT NOT FASTINGPERFORMED BY: [facility]6370 [facility] [id number] Hemoglobin A1c 5.3 % (Normal) Range: 4.8-5.6 Comments: . Pre-diabetes: 5.7 - 6.4 Diabetes: >6.4 Glycemic control for adults with diabetes: <7.0 :33 CBC WITH MANUAL DIFF (07099) Comments: PATIENT WAS FASTINGPERFORMED BY: [facility] [id number] Immature Grans (Abs) 0.0 {x10E3/uL} (Normal) Range: 0.0-0.1 Immature Granulocytes 0 % (Normal) Baso (Absolute) 0.1 {x10E3/uL} (Normal) Range: 0.0-0.2 Eos (Absolute) 0.5 {x10E3/uL} (Abnormal) Range: 0.0-0.4 Monocytes(Absolute) 0.7 {x10E3/uL} (Normal) Range: 0.1-0.9 Lymphs (Absolute) 2.1 {x10E3/uL} (Normal) Range: 0.7-3.1 Neutrophils (Absolute) 5.4 {x10E3/uL} (Normal) Range: 1.4-7.0 Basos 1 % (Normal) Eos 6 % (Normal) Monocytes 8 % (Normal) Lymphs 24 % (Normal) Neutrophils 61 % (Normal) Platelets 238 {x10E3/uL} (Normal) Range: 150-379 RDW 14.3 % (Normal) Range: 12.3-15.4 MCHC 32.3 g/dL (Normal) Range: 31.5-35.7 MCH 28.9 pg (Normal) Range: 26.6-33.0 MCV 89 fL (Normal) Range: 79-97 Hematocrit 43.9 % (Normal) Range: 37.5-51.0 Hemoglobin 14.2 g/dL (Normal) Range: 12.6-17.7 RBC 4.91 {x10E6/uL} (Normal) Range: 4.14-5.80 WBC 8.9 {x10E3/uL} (Normal) Range: 3.4-10.8 :33 Lipid Panel (07052) Comments: PATIENT WAS FASTINGPERFORMED BY: [facility] CatalystsMary [facility] [id number] LDL/HDL Ratio 2.4 {ratio_units} (Normal) Range: 0.0-3.6 Comments: LDL/HDL Ratio Men Women 1/2 Avg.Risk 1.0 1.5 Av g.Risk 3.6 3.2 2X Avg.Risk 6.2 5.0 3X Avg.Risk 8.0 6.1 LDL Cholesterol Calc 115 mg/dL (Abnormal) Range: 0-99 VLDL Cholesterol Tyrese 64 mg/dL (Abnormal) Range: 5-40 HDL Cholesterol 47 mg/dL (Normal) Triglycerides 319 mg/dL (Abnormal) Range: 0-149 Cholesterol, Total 226 mg/dL (Abnormal) Range: 100-199 :33 Metabolic Panel, Comprehensive Comments: PATIENT WAS FASTINGPERFORMED BY: [facility] CatalystsMary [facility]inridge Hospital [id number]; fu 07-23-17 DB (41109) ALT (SGPT) 15 [iU]/L (Normal) Range: 0-44 AST (SGOT) 16 [iU]/L (Normal) Range: 0-40 Alkaline Phosphatase, S 76 [iU]/L (Normal) Range: 39-117 Bilirubin, Total 0.4 mg/dL (Normal) Range: 0.0-1.2 A/G Ratio 1.7 (Normal) Range: 1.2-2.2 Globulin, Total 2.3 g/dL (Normal) Range: 1.5-4.5 Albumin, Serum 3.8 g/dL (Normal) Range: 3.5-5.5 Protein, Total, Serum 6.1 g/dL (Normal) Range: 6.0-8.5 Calcium, Serum 9.5 mg/dL (Normal) Range: 8.7-10.2 Carbon Dioxide, Total 26 mmol/L (Normal) Range: 18-29 Chloride, Serum 102 mmol/L (Normal) Range: 96-106 Potassium, Serum 4.8 mmol/L (Normal) Range: 3.5-5.2 Sodium, Serum 144 mmol/L (Normal) Range: 134-144 BUN/Creatinine Ratio 25 (Abnormal) Range: 9-20 eGFR If Africn Am 119 mL/min/1.73 (Normal) eGFR If NonAfricn Am 103 mL/min/1.73 (Normal) Creatinine, Serum 0.77 mg/dL (Normal) Range: 0.76-1.27 BUN 19 mg/dL (Normal) Range: 6-24 Glucose, Serum 95 mg/dL (Normal) Range: 65-99 17-Xal-245832:14 PSA (Prostate Specific Comments: PATIENT NOT FASTINGPERFORMED BY: [employer] Hmfbso7138 [facility] [id number] Information: NURSE DRAW Antigen), Screening (56340) Prostate Specific Ag, 2.0 ng/mL (Normal) Range: 0.0-4.0 Serum Comments: ShoplogixIA methodology. .According to the [place] [employer], Serum PSA shoulddecrease and remain at undetectable levels after radicalprostatectomy. The AUA defines biochemical recurrence as an initialPSA value 0.2 ng/mL or greater followed by a subsequent confirmatoryPSA value 0.2 ng/mL or greater.Values obtained with d ifferent assay methods or kits cannot be usedinterchangeably. Results cannot be interpreted as absolute evidenceof the presence or absence of malignant disease. 12-Jqq-291979:14 HEPATITIS C ANTIBODY (26835) Comments: PATIENT NOT FASTINGPERFORMED BY: [facility]Henry [facility]6370 [facility] [id number] Hep C Virus Ab 0.3 {s/co_ratio} (Normal) Range: 0.0-0.9 Comments: Negative: < 0.8 Indeterminate: 0.8 - 0.9 Positive: > 0.9 . The CDC recommends that a positive HCV antibody result be followed up with a HCV Nucleic Acid Amplification test (073858). 98-Lta-678867:16 MICROALBUMIN: CREATININE RATIO Comments: PATIENT NOT FASTINGPERFORMED BY: Stella & DotHenry Ford Hospital6370 [facility] [id number] (09974) AND (63281) Microalb/Creat Ratio 3.2 {mg/g_creat} (Normal) Range: 0.0-30.0 Microalbumin, Urine 4.9 ug/mL (Normal) Creatinine, Urine 154.3 mg/dL (Normal) 16-Caf-139776:16 VITAMIN B12 AND FOLATES Comments: PATIENT NOT FASTINGPERFORMED BY: [facility] [id number] (93314) Folate (Folic Acid), Serum 19.8 ng/mL (Normal) Comments: A serum folate concentration of less than 3.1 ng/mL isconsidered to represent clinical deficiency. Vitamin B12 666 pg/mL (Normal) Range: 211-946 77-Bpf-756891:16 IRON & TOTAL IRON BINDING Comments: PATIENT NOT FASTINGPERFORMED BY: [facility]6370 [facility] [id number] Information: NURSE DRAW CAPACITY (43859) Iron Saturation 30 % (Normal) Range: 15-55 Iron, Serum 91 ug/dL (Normal) Range: 38-169 UIBC 215 ug/dL (Normal) Range: 111-343 Iron Bind.Cap.(TIBC) 306 ug/dL (Normal) Range: 250-450 11-Vtr-503984:16 FERRITIN (28695) Comments: PATIENT NOT FASTINGPERFORMED BY: [facility] [id number] Ferritin, Serum 682 ng/mL (Abnormal) Range: 30-400 :23 PSA (PROSTATE SPECIFIC Comments: PATIENT NOT FASTINGPERFORMED BY: [facility]Gqkeoc1021 [facility] [id number] Information: [id number] ANTIGEN) (96383) Prostate Specific Ag, 1.7 ng/mL (Normal) Range: 0.0-4.0 Serum Comments: Yany ECLIA methodology. .According to the [place] [employer], Serum PSA shoulddecrease and remain at undetectable levels after radicalprostatectomy. The AUA defines biochemical recurrence as an initialPSA value 0.2 ng/mL or greater followed by a subsequent confirmatoryPSA value 0.2 ng/mL or greater.Values obtained with d ifferent assay methods or kits cannot be usedinterchangeably. Results cannot be interpreted as absolute evidenceof the presence or absence of malignant disease. :22 MICROALBUMIN: CREATININE RATIO Comments: PATIENT WAS FASTINGPERFORMED BY: Makara Bchkvi5494 [facility] [id number] (22848) AND (56506) Microalb/Creat Ratio <2.9 {mg/g_creat} (Normal) Range: 0.0-30.0 Microalbumin, Urine <3.0 ug/mL (Normal) Creatinine, Urine 101.8 mg/dL (Normal) :22 METABOLIC PANEL, COMPREHENSIVE Comments: PATIENT WAS FASTINGPERFORMED BY: Dhingana6370 [facility] [id number] (76080) ALT (SGPT) 13 [iU]/L (Normal) Range: 0-44 AST (SGOT) 27 [iU]/L (Normal) Range: 0-40 Alkaline Phosphatase, S 53 [iU]/L (Normal) Range: 39-117 Bilirubin, Total 0.5 mg/dL (Normal) Range: 0.0-1.2 A/G Ratio 2.0 (Normal) Range: 1.1-2.5 Globulin, Total 2.1 g/dL (Normal) Range: 1.5-4.5 Albumin, Serum 4.2 g/dL (Normal) Range: 3.5-5.5 Protein, Total, Serum 6.3 g/dL (Normal) Range: 6.0-8.5 Calcium, Serum 9.6 mg/dL (Normal) Range: 8.7-10.2 Carbon Dioxide, Total 26 mmol/L (Normal) Range: 18-29 Chloride, Serum 103 mmol/L (Normal) Range: 97-108 Potassium, Serum 5.2 mmol/L (Normal) Range: 3.5-5.2 Sodium, Serum 145 mmol/L (Abnormal) Range: 134-144 BUN/Creatinine Ratio 21 (Abnormal) Range: 9-20 eGFR If Africn Am 120 mL/min/1.73 (Normal) eGFR If NonAfricn Am 104 mL/min/1.73 (Normal) Creatinine, Serum 0.77 mg/dL (Normal) Range: 0.76-1.27 BUN 16 mg/dL (Normal) Range: 6-24 Glucose, Serum 90 mg/dL (Normal) Range: 65-99 :22 LIPID PANEL (23146) Comments: PATIENT WAS FASTINGPERFORMED BY: [facility]lyotechThe [facility] [id number] LDL/HDL Ratio 1.2 {ratio_units} (Normal) Range: 0.0-3.6 Comments: LDL/HDL Ratio Men Women 1/2 Avg.Risk 1.0 1.5 Av g.Risk 3.6 3.2 2X Avg.Risk 6.2 5.0 3X Avg.Risk 8.0 6.1 LDL Cholesterol Calc 102 mg/dL (Abnormal) Range: 0-99 VLDL Cholesterol Tyrese 9 mg/dL (Normal) Range: 5-40 HDL Cholesterol 85 mg/dL (Normal) Comments: According to ATP-III Guidelines, HDL-C >59 mg/dL is considered anegative risk factor for CHD. Triglycerides 44 mg/dL (Normal) Range: 0-149 Cholesterol, Total 196 mg/dL (Normal) Range: 100-199 :22 CBC with auto diff Comments: PATIENT WAS FASTINGPERFORMED BY: [employer]70 [facility] [id number] Information: [id number] (10838) Immature Grans (Abs) 0.0 {x10E3/uL} (Normal) Range: 0.0-0.1 Immature Granulocytes 0 % (Normal) Baso (Absolute) 0.1 {x10E3/uL} (Normal) Range: 0.0-0.2 Eos (Absolute) 0.5 {x10E3/uL} (Abnormal) Range: 0.0-0.4 Monocytes(Absolute) 0.5 {x10E3/uL} (Normal) Range: 0.1-0.9 Lymphs (Absolute) 2.0 {x10E3/uL} (Normal) Range: 0.7-3.1 Neutrophils (Absolute) 3.6 {x10E3/uL} (Normal) Range: 1.4-7.0 Basos 1 % (Normal) Eos 7 % (Normal) Monocytes 8 % (Normal) Lymphs 29 % (Normal) Neutrophils 55 % (Normal) Platelets 260 {x10E3/uL} (Normal) Range: 150-379 RDW 14.9 % (Normal) Range: 12.3-15.4 MCHC 32.3 g/dL (Normal) Range: 31.5-35.7 MCH 29.9 pg (Normal) Range: 26.6-33.0 MCV 93 fL (Normal) Range: 79-97 Hematocrit 42.4 % (Normal) Range: 37.5-51.0 Hemoglobin 13.7 g/dL (Normal) Range: 12.6-17.7 RBC 4.58 {x10E6/uL} (Normal) Range: 4.14-5.80 WBC 6.7 {x10E3/uL} (Normal) Range: 3.4-10.8 :22 Hemoglobin Glyclated (HGB A1C) Comments: now and every in three months (approximately); PATIENT WAS FASTINGPERFORMED BY: [employer]6370 [facility]WAPThe [facility] [id number]; david Grewal 07-17 (50484) Hemoglobin A1c 4.6 % (Abnormal) Range: 4.8-5.6 Comments: . Pre-diabetes: 5.7 - 6.4 Diabetes: >6.4 Glycemic control for adults with diabetes: <7.0 :55 Ferritin (90089) Comments: PATIENT WAS FASTINGPERFORMED BY: [employer] [place]70 SNOBSWAPThe [facility] [id number] Ferritin, Serum 606 ng/mL (Abnormal) Range: 30-400 :55 CALCIFIDIOL (24164) VIT D 25 Comments: PATIENT WAS FASTINGPERFORMED BY: Stella & DotHenry Ford Hospital6370 [facility] [id number] Vitamin D, 25-Hydroxy 64.5 ng/mL (Normal) Range: 30.0-100.0 Comments: Vitamin D deficiency has been defined by the [place] [facility] and an Endocrine Society practice guideline as alevel of serum 25-OH vitamin D less than 20 ng/mL (1,2).The Endocrine Society went on to further define vitamin Dinsufficiency as a level between 21 and 29 ng/mL (2).1. IOM ([place] of Medicine). 2010. Dietary reference intakes for calcium and D. [place]: The National Academies Press.2. Audra MF, Erin GRIFFITHS, Brittani CEDEÑO, et al. Evaluation, treatment, and prevention of vitamin D deficiency: an Endocrine Society clinical practice guideline. JCEM. 2010; 96(7):1911-30. :55 METABOLIC PANEL, COMPREHENSIVE Comments: PATIENT WAS FASTINGPERFORMED BY: LabHenry [facility] Hospital6370 [facility] [id number] (92021) ALT (SGPT) 18 [iU]/L (Normal) Range: 0-44 AST (SGOT) 28 [iU]/L (Normal) Range: 0-40 Alkaline Phosphatase, S 48 [iU]/L (Normal) Range: 39-117 Bilirubin, Total 0.6 mg/dL (Normal) Range: 0.0-1.2 A/G Ratio 1.9 (Normal) Range: 1.1-2.5 Globulin, Total 2.2 g/dL (Normal) Range: 1.5-4.5 Albumin, Serum 4.2 g/dL (Normal) Range: 3.5-5.5 Protein, Total, Serum 6.4 g/dL (Normal) Range: 6.0-8.5 Calcium, Serum 9.6 mg/dL (Normal) Range: 8.7-10.2 Carbon Dioxide, Total 28 mmol/L (Normal) Range: 18-29 Chloride, Serum 104 mmol/L (Normal) Range: 97-108 Potassium, Serum 5.4 mmol/L (Abnormal) Range: 3.5-5.2 Sodium, Serum 145 mmol/L (Abnormal) Range: 134-144 BUN/Creatinine Ratio 18 (Normal) Range: 9-20 eGFR If Africn Am 123 mL/min/1.73 (Normal) eGFR If NonAfricn Am 107 mL/min/1.73 (Normal) Creatinine, Serum 0.72 mg/dL (Abnormal) Range: 0.76-1.27 BUN 13 mg/dL (Normal) Range: 6-24 Glucose, Serum 96 mg/dL (Normal) Range: 65-99 :55 CBC with auto diff Comments: PATIENT WAS FASTINGPERFORMED BY: [facility]CoCap[facility]Mozkxm0649 [facility] [id number] Information: [id number] (40574) Immature Grans (Abs) 0.0 {x10E3/uL} (Normal) Range: 0.0-0.1 Immature Granulocytes 0 % (Normal) Baso (Absolute) 0.1 {x10E3/uL} (Normal) Range: 0.0-0.2 Eos (Absolute) 0.3 {x10E3/uL} (Normal) Range: 0.0-0.4 Monocytes(Absolute) 0.5 {x10E3/uL} (Normal) Range: 0.1-0.9 Lymphs (Absolute) 1.8 {x10E3/uL} (Normal) Range: 0.7-3.1 Neutrophils (Absolute) 3.2 {x10E3/uL} (Normal) Range: 1.4-7.0 Basos 1 % (Normal) Eos 4 % (Normal) Monocytes 8 % (Normal) Lymphs 30 % (Normal) Neutrophils 57 % (Normal) Platelets 250 {x10E3/uL} (Normal) Range: 150-379 RDW 14.1 % (Normal) Range: 12.3-15.4 MCHC 33.0 g/dL (Normal) Range: 31.5-35.7 MCH 30.4 pg (Normal) Range: 26.6-33.0 MCV 92 fL (Normal) Range: 79-97 Hematocrit 42.4 % (Normal) Range: 37.5-51.0 Hemoglobin 14.0 g/dL (Normal) Range: 12.6-17.7 RBC 4.60 {x10E6/uL} (Normal) Range: 4.14-5.80 WBC 5.8 {x10E3/uL} (Normal) Range: 3.4-10.8 :10 Ferritin (41625) Comments: PATIENT WAS FASTINGPERFORMED BY: [facility]Qolhni1707 [facility] [id number] Ferritin, Serum 965 ng/mL (Abnormal) Range: 30-400 :10 LIPID PANEL (63781) Comments: PATIENT WAS FASTINGPERFORMED BY: [facility]ella & DotHenry Ford Hospital6370 [facility] [id number] Information: [id number] LDL/HDL Ratio 0.9 {ratio_units} (Normal) Range: 0.0-3.6 Comments: LDL/HDL Ratio Men Women 1/2 Avg.Risk 1.0 1.5 Av g.Risk 3.6 3.2 2X Avg.Risk 6.2 5.0 3X Avg.Risk 8.0 6.1 LDL Cholesterol Calc 74 mg/dL (Normal) Range: 0-99 VLDL Cholesterol Tyrese 11 mg/dL (Normal) Range: 5-40 HDL Cholesterol 81 mg/dL (Normal) Comments: According to ATP-III Guidelines, HDL-C >59 mg/dL is considered anegative risk factor for CHD. Triglycerides 56 mg/dL (Normal) Range: 0-149 Cholesterol, Total 166 mg/dL (Normal) Range: 100-199 :10 MICROALBUMIN: CREATININE RATIO Comments: PATIENT WAS FASTINGPERFORMED BY: [facility]ella [facility] DotHenry [facility] Hospital6370 [facility] [id number] (26467) AND (97849) Microalb/Creat Ratio 3.3 {mg/g_creat} (Normal) Range: 0.0-30.0 Microalbumin, Urine 3.8 ug/mL (Normal) Range: 0.0-17.0 Creatinine, Urine 113.9 mg/dL (Normal) Range: 22.0-328.0 :10 Hemoglobin Glyclated (HGB A1C) Comments: PATIENT WAS FASTINGPERFORMED BY: [facility] [id number]; apt. 11-04-15 (08467) Hemoglobin A1c 4.6 % (Abnormal) Range: 4.8-5.6 Comments: . Pre-diabetes: 5.7 - 6.4 Diabetes: >6.4 Glycemic control for adults with diabetes: <7.0 :56 Lipid Panel (53234) Comments: PATIENT WAS FASTINGPERFORMED BY: [facility] [id number]; apt. 08-05 LDL/HDL Ratio 0.5 {ratio_units} (Normal) Range: 0.0-3.6 Comments: LDL/HDL Ratio Men Women 1/2 Avg.Risk 1.0 1.5 Av g.Risk 3.6 3.2 2X Avg.Risk 6.2 5.0 3X Avg.Risk 8.0 6.1 LDL Cholesterol Calc 39 mg/dL (Normal) Range: 0-99 VLDL Cholesterol Tyrese 16 mg/dL (Normal) Range: 5-40 HDL Cholesterol 82 mg/dL (Normal) Comments: According to ATP-III Guidelines, HDL-C >59 mg/dL is considered anegative risk factor for CHD. Triglycerides 78 mg/dL (Normal) Range: 0-149 Cholesterol, Total 137 mg/dL (Normal) Range: 100-199 :56 Metabolic Panel, Comments: PATIENT WAS FASTINGPERFORMED BY: [facility] [id number] Information: [id number] Comprehensive (75986) ALT (SGPT) 22 [iU]/L (Normal) Range: 0-44 AST (SGOT) 33 [iU]/L (Normal) Range: 0-40 Alkaline Phosphatase, S 62 [iU]/L (Normal) Range: 39-117 Bilirubin, Total 0.5 mg/dL (Normal) Range: 0.0-1.2 A/G Ratio 2.2 (Normal) Range: 1.1-2.5 Globulin, Total 2.0 g/dL (Normal) Range: 1.5-4.5 Albumin, Serum 4.4 g/dL (Normal) Range: 3.5-5.5 Protein, Total, Serum 6.4 g/dL (Normal) Range: 6.0-8.5 Calcium, Serum 9.9 mg/dL (Normal) Range: 8.7-10.2 Carbon Dioxide, Total 26 mmol/L (Normal) Range: 18-29 Chloride, Serum 102 mmol/L (Normal) Range: 97-108 Potassium, Serum 4.6 mmol/L (Normal) Range: 3.5-5.2 Sodium, Serum 144 mmol/L (Normal) Range: 134-144 BUN/Creatinine Ratio 14 (Normal) Range: 9-20 eGFR If Africn Am 115 mL/min/1.73 (Normal) eGFR If NonAfricn Am 100 mL/min/1.73 (Normal) Creatinine, Serum 0.86 mg/dL (Normal) Range: 0.76-1.27 BUN 12 mg/dL (Normal) Range: 6-24 Glucose, Serum 87 mg/dL (Normal) Range: 65-99 :57 Hemoglobin Glyclated (HGB Comments: now and every in three months (approximately); PATIENT NOT FASTINGPERFORMED BY: [facility]ella [facility] DotHenry [facility] Hospital6370 [facility] [id number] Information: [id number] A1C) (40631) Hemoglobin A1c 5.1 % (Normal) Range: 4.8-5.6 Comments: . Increased risk for diabetes: 5.7 - 6.4 Diabetes: >6.4 Glycemic control for adults with diabetes: <7.0 :22 Ferritin (00175) Comments: PATIENT NOT FASTINGPERFORMED BY: [facility]Tmysfc7834 [facility] [id number] Ferritin, Serum 837 ng/mL (Abnormal) Range: 30-400 :22 Hemoglobin Glyclated (HGB A1C) Comments: now and every in three months (approximately); PATIENT NOT FASTINGPERFORMED BY: [employer]ella & DotKristin V[place] 0694570 [facility] [id number] (87189) Hemoglobin A1c 5.4 % (Normal) Range: 4.8-5.6 Comments: . Increased risk for diabetes: 5.7 - 6.4 Diabetes: >6.4 Glycemic control for adults with diabetes: <7.0 :02 LIPID PANEL (68150) Comments: PATIENT WAS FASTINGPERFORMED BY: [employer] Bjplgm1793 [facility] [id number] LDL/HDL Ratio 1.3 {ratio_units} (Normal) Range: 0.0-3.6 Comments: LDL/HDL Ratio Men Women 1/2 Avg.Risk 1.0 1.5 Av g.Risk 3.6 3.2 2X Avg.Risk 6.2 5.0 3X Avg.Risk 8.0 6.1 LDL Cholesterol Calc 74 mg/dL (Normal) Range: 0-99 VLDL Cholesterol Tyrese 13 mg/dL (Normal) Range: 5-40 HDL Cholesterol 59 mg/dL (Normal) Comments: According to ATP-III Guidelines, HDL-C >59 mg/dL is considered anegative risk factor for CHD. Triglycerides 63 mg/dL (Normal) Range: 0-149 Cholesterol, Total 146 mg/dL (Normal) Range: 100-199 :02 METABOLIC PANEL, COMPREHENSIVE Comments: PATIENT WAS FASTINGPERFORMED BY: [employer]6370 [facility] [id number] (47623) ALT (SGPT) 25 [iU]/L (Normal) Range: 0-44 AST (SGOT) 31 [iU]/L (Normal) Range: 0-40 Alkaline Phosphatase, S 39 [iU]/L (Normal) Range: 39-117 Bilirubin, Total 0.5 mg/dL (Normal) Range: 0.0-1.2 A/G Ratio 2.3 (Normal) Range: 1.1-2.5 Globulin, Total 1.8 g/dL (Normal) Range: 1.5-4.5 Albumin, Serum 4.2 g/dL (Normal) Range: 3.5-5.5 Protein, Total, Serum 6.0 g/dL (Normal) Range: 6.0-8.5 Calcium, Serum 10.0 mg/dL (Normal) Range: 8.7-10.2 Carbon Dioxide, Total 24 mmol/L (Normal) Range: 18-29 Chloride, Serum 102 mmol/L (Normal) Range: 97-108 Potassium, Serum 5.1 mmol/L (Normal) Range: 3.5-5.2 Sodium, Serum 143 mmol/L (Normal) Range: 134-144 BUN/Creatinine Ratio 21 (Abnormal) Range: 9-20 eGFR If Africn Am 112 mL/min/1.73 (Normal) eGFR If NonAfricn Am 97 mL/min/1.73 (Normal) Creatinine, Serum 0.91 mg/dL (Normal) Range: 0.76-1.27 BUN 19 mg/dL (Normal) Range: 6-24 Glucose, Serum 105 mg/dL (Abnormal) Range: 65-99 31-Ovm-25069:02 CBC W/AUTO DIFF WBC Comments: PATIENT WAS FASTINGPERFORMED BY: [facility] Rbtcgp8219 [facility] [id number] Information: [id number] (41996) Immature Grans (Abs) 0.0 {x10E3/uL} (Normal) Range: 0.0-0.1 Immature Granulocytes 0 % (Normal) Baso (Absolute) 0.0 {x10E3/uL} (Normal) Range: 0.0-0.2 Eos (Absolute) 0.3 {x10E3/uL} (Normal) Range: 0.0-0.4 Monocytes(Absolute) 0.7 {x10E3/uL} (Normal) Range: 0.1-0.9 Lymphs (Absolute) 1.6 {x10E3/uL} (Normal) Range: 0.7-3.1 Neutrophils (Absolute) 5.7 {x10E3/uL} (Normal) Range: 1.4-7.0 Basos 0 % (Normal) Eos 4 % (Normal) Monocytes 8 % (Normal) Lymphs 19 % (Normal) Neutrophils 69 % (Normal) Platelets 308 {x10E3/uL} (Normal) Range: 150-379 RDW 16.6 % (Abnormal) Range: 12.3-15.4 MCHC 32.6 g/dL (Normal) Range: 31.5-35.7 MCH 28.5 pg (Normal) Range: 26.6-33.0 MCV 87 fL (Normal) Range: 79-97 Hematocrit 44.5 % (Normal) Range: 37.5-51.0 Hemoglobin 14.5 g/dL (Normal) Range: 12.6-17.7 RBC 5.09 {x10E6/uL} (Normal) Range: 4.14-5.80 WBC 8.3 {x10E3/uL} (Normal) Range: 3.4-10.8 :02 CALCIFIDIOL (12298) VIT D 25 Comments: PATIENT WAS FASTINGPERFORMED BY: [address] [id number] Vitamin D, 25-Hydroxy 77.5 ng/mL (Normal) Range: 30.0-100.0 Comments: Vitamin D deficiency has been defined by the [place] ofMedicine and an Endocrine Society practice guideline as alevel of serum 25-OH vitamin D less than 20 ng/mL (1,2).The Endocrine Society went on to further define vitamin Dinsufficiency as a level between 21 and 29 ng/mL (2).1. IOM ([place] of Medicine). 2010. Dietary reference intakes for calcium and D. [place]: The National Academies Press.2. Audra MF, Erin GRIFFITHS, Brittani CEDEÑO, et al. Evaluation, treatment, and prevention of vitamin D deficiency: an Endocrine Society clinical practice guideline. JCEM. 2010; 96(7):1911-30. :50 IBC %ISAT 19.6 % (Normal) Range: 15.0-55.0 FE 76 ug/dL (Normal) Range: 65-175 TIBC 387 ug/dL (Normal) Range: 250-450 :50 TRF 317 mg/dL (Normal) Range: 200-370 Comments: Performed at: [address] [id number] Director: Rickey Leiva PhD, Phone: [phone] IRON BINDING CAPACITY (TIBC) Comments: PATIENT NOT FASTINGPERFORMED BY: [address] [id number] (29946) Iron Saturation 28 % (Normal) Range: 15-55 Iron, Serum 90 ug/dL (Normal) Range: 40-155 UIBC 237 ug/dL (Normal) Range: 150-375 Iron Bind.Cap.(TIBC) 327 ug/dL (Normal) Range: 250-450 :12 CBC WITH MANUAL DIFF Comments: PATIENT NOT FASTINGPERFORMED BY: [facility]Zmsbum7035 [facility] [id number] Information: [id number] (85521) Immature Grans (Abs) 0.0 {x10E3/uL} (Normal) Range: 0.0-0.1 Immature Granulocytes 0 % (Normal) Baso (Absolute) 0.0 {x10E3/uL} (Normal) Range: 0.0-0.2 Eos (Absolute) 0.3 {x10E3/uL} (Normal) Range: 0.0-0.4 Monocytes(Absolute) 0.6 {x10E3/uL} (Normal) Range: 0.1-0.9 Lymphs (Absolute) 1.6 {x10E3/uL} (Normal) Range: 0.7-3.1 Neutrophils (Absolute) 6.1 {x10E3/uL} (Normal) Range: 1.4-7.0 Basos 0 % (Normal) Eos 4 % (Normal) Monocytes 7 % (Normal) Lymphs 19 % (Normal) Neutrophils 70 % (Normal) Platelets 326 {x10E3/uL} (Normal) Range: 150-379 RDW 14.7 % (Normal) Range: 12.3-15.4 MCHC 32.1 g/dL (Normal) Range: 31.5-35.7 MCH 27.7 pg (Normal) Range: 26.6-33.0 MCV 86 fL (Normal) Range: 79-97 Hematocrit 44.8 % (Normal) Range: 37.5-51.0 Hemoglobin 14.4 g/dL (Normal) Range: 12.6-17.7 RBC 5.19 {x10E6/uL} (Normal) Range: 4.14-5.80 WBC 8.7 {x10E3/uL} (Normal) Range: 3.4-10.8 :12 FERRITIN (51324) Comments: PATIENT NOT FASTINGPERFORMED BY: [facility]Xawgjc6060 [facility] [id number] Ferritin, Serum 798 ng/mL (Abnormal) Range: 30-400 19-Yjq-35811:35 HgA1C , Office (44063) HgA1C , Office 6.4 % (Normal) Range: 4.6 - 7.1 :35 Blood Glucose , Office (48482) Blood Glucose , Office 107 (Normal) :09 METABOLIC PANEL, Comments: PATIENT WAS FASTINGPERFORMED BY: CB [facility] [id number] [facility] [id number] BY: BN [facility] [id number] [facility] [id number] COMPREHENSIVE (33843) ALT (SGPT) 14 [iU]/L (Normal) Range: 0-44 AST (SGOT) 18 [iU]/L (Normal) Range: 0-40 Alkaline Phosphatase, S 48 [iU]/L (Normal) Range: 39-117 Bilirubin, Total 0.4 mg/dL (Normal) Range: 0.0-1.2 A/G Ratio 1.9 (Normal) Range: 1.1-2.5 Globulin, Total 2.1 g/dL (Normal) Range: 1.5-4.5 Albumin, Serum 4.0 g/dL (Normal) Range: 3.5-5.5 Protein, Total, Serum 6.1 g/dL (Normal) Range: 6.0-8.5 Calcium, Serum 10.1 mg/dL (Normal) Range: 8.7-10.2 Carbon Dioxide, Total 26 mmol/L (Normal) Range: 18-29 Chloride, Serum 102 mmol/L (Normal) Range: 97-108 Potassium, Serum 5.0 mmol/L (Normal) Range: 3.5-5.2 Sodium, Serum 143 mmol/L (Normal) Range: 134-144 BUN/Creatinine Ratio 20 (Normal) Range: 9-20 eGFR If Africn Am 109 mL/min/1.73 (Normal) eGFR If NonAfricn Am 95 mL/min/1.73 (Normal) Creatinine, Serum 0.93 mg/dL (Normal) Range: 0.76-1.27 BUN 19 mg/dL (Normal) Range: 6-24 Glucose, Serum 117 mg/dL (Abnormal) Range: 65-99 :09 LIPID PANEL (24086) Comments: PATIENT WAS FASTINGPERFORMED BY: [facility][id number] [facility] [id number] BY: [place] [id number] [facility] [id number] LDL/HDL Ratio 2.9 {ratio_units} (Normal) Range: 0.0-3.6 Comments: LDL/HDL Ratio Men Women 1/2 Avg.Risk 1.0 1.5 Av g.Risk 3.6 3.2 2X Avg.Risk 6.2 5.0 3X Avg.Risk 8.0 6.1 LDL Cholesterol Calc 93 mg/dL (Normal) Range: 0-99 VLDL Cholesterol Tyrese 37 mg/dL (Normal) Range: 5-40 HDL Cholesterol 32 mg/dL (Abnormal) Comments: According to ATP-III Guidelines, HDL-C >59 mg/dL is considered anegative risk factor for CHD. Triglycerides 184 mg/dL (Abnormal) Range: 0-149 Cholesterol, Total 162 mg/dL (Normal) Range: 100-199 25-Aug-20148:09 CBC WITH MANUAL DIFF Comments: PATIENT WAS FASTINGPERFORMED BY: [employer] [id number] [facility] [id number] BY: [address] [id number] Inf ormation: [id number] (45691) Immature Grans (Abs) 0.0 {x10E3/uL} (Normal) Range: 0.0-0.1 Immature Granulocytes 0 % (Normal) Baso (Absolute) 0.0 {x10E3/uL} (Normal) Range: 0.0-0.2 Eos (Absolute) 0.3 {x10E3/uL} (Normal) Range: 0.0-0.4 Monocytes(Absolute) 0.4 {x10E3/uL} (Normal) Range: 0.1-0.9 Lymphs (Absolute) 1.8 {x10E3/uL} (Normal) Range: 0.7-3.1 Neutrophils (Absolute) 4.9 {x10E3/uL} (Normal) Range: 1.4-7.0 Basos 0 % (Normal) Eos 3 % (Normal) Monocytes 5 % (Normal) Lymphs 24 % (Normal) Neutrophils 68 % (Normal) Platelets 335 {x10E3/uL} (Normal) Range: 150-379 RDW 14.8 % (Normal) Range: 12.3-15.4 MCHC 33.3 g/dL (Normal) Range: 31.5-35.7 MCH 27.4 pg (Normal) Range: 26.6-33.0 MCV 82 fL (Normal) Range: 79-97 Hematocrit 41.1 % (Normal) Range: 37.5-51.0 Hemoglobin 13.7 g/dL (Normal) Range: 12.6-17.7 RBC 5.00 {x10E6/uL} (Normal) Range: 4.14-5.80 WBC 7.4 {x10E3/uL} (Normal) Range: 3.4-10.8 :09 Ferritin (10548) Comments: PATIENT WAS FASTINGPERFORMED BY: [employer] [facility] [id number] BY: FreeBrie[address] [id number] Ferritin, Serum 793 ng/mL (Abnormal) Range: 30-400 :09 TESTOSTERONE FREE (14821) Comments: PATIENT WAS FASTINGPERFORMED BY: [employer] [facility] [id number] BY: [employer] [address] [id number] Free Testosterone(Direct) 1.8 pg/mL (Abnormal) Range: 7.2-24.0 :09 PSA (PROSTATE SPECIFIC Comments: PATIENT WAS FASTINGPERFORMED BY: [employer] [facility] [id number] BY: FreeBrie[address] [id number] ANTIGEN) (V76.44) Prostate Specific Ag, 1.0 ng/mL (Normal) Range: 0.0-4.0 Serum Comments: Yany ECLIA methodology. .According to the [place] [employer], Serum PSA shoulddecrease and remain at undetectable levels after radicalprostatectomy. The AUA defines biochemical recurrence as an initialPSA value 0.2 ng/mL or greater followed by a subsequent confirmatoryPSA value 0.2 ng/mL or greater.Values obtained with d ifferent assay methods or kits cannot be usedinterchangeably. Results cannot be interpreted as absolute evidenceof the presence or absence of malignant disease. :06 Metabolic Panel, Basic (52024) Comments: PATIENT WAS FASTINGPERFORMED BY: [employer] [facility] [id number] Calcium, Serum 10.3 mg/dL (Abnormal) Range: 8.7-10.2 Carbon Dioxide, Total 27 mmol/L (Normal) Range: 18-29 Chloride, Serum 101 mmol/L (Normal) Range: 97-108 Potassium, Serum 5.2 mmol/L (Normal) Range: 3.5-5.2 Sodium, Serum 141 mmol/L (Normal) Range: 134-144 BUN/Creatinine Ratio 18 (Normal) Range: 9-20 eGFR If Africn Am 105 mL/min/1.73 (Normal) eGFR If NonAfricn Am 91 mL/min/1.73 (Normal) Creatinine, Serum 0.96 mg/dL (Normal) Range: 0.76-1.27 BUN 17 mg/dL (Normal) Range: 6-24 Glucose, Serum 121 mg/dL (Abnormal) Range: 65-99 :06 CBC (Auto) (53070) Comments: PATIENT WAS FASTINGPERFORMED BY: Makara Nkmtix2116 [facility] [id number] Information: [id number] Platelets 279 {x10E3/uL} (Normal) Range: 150-379 RDW 13.4 % (Normal) Range: 12.3-15.4 MCH 28.7 pg (Normal) Range: 26.6-33.0 MCHC 34.1 g/dL (Normal) Range: 31.5-35.7 MCV 84 fL (Normal) Range: 79-97 Hematocrit 48.1 % (Normal) Range: 37.5-51.0 Hemoglobin 16.4 g/dL (Normal) Range: 12.6-17.7 RBC 5.72 {x10E6/uL} (Normal) Range: 4.14-5.80 WBC 7.4 {x10E3/uL} (Normal) Range: 3.4-10.8 :56 Blood Glucose , Office (63927) Blood Glucose , Office 91 (Normal) :35 HFE GENE (69874) Comments: PATIENT NOT FASTINGPERFORMED BY: TG [facility] RHP7582 [address]arte DriveRTP [place] [id number] BY: CB [facility] Vzcgva3754 [facility] [id number] Information: [id number] Hereditary Hemochromatosis 63HET (Normal) Comments: Result: CARRIERSingle mutation (H63D) identified .Interpretation: This patient's sample was analyzed for the hereditaryhemochromatosis (HH) mutations C282Y, H63D, and S65C. A single copyof H63D was identified. Results for C282Y and S65C were negative.This person is most likely an unaffected carrier. Approximately 1 in9 Caucasians a re carriers of HH. The mutations analyzed by [facility]are most common in the population. Because this panel doesnot identify rare HH mutations or HH mutations found in other ethnicgroups, ther e are a small number of people who may have a single copyof H63D who are actually affected. The diagnosis of HH should includeclinical findings and other test results, such as transferrin-ironsaturatio n and/or serum ferritin studies and/or liver biopsy. HH isinherited in a recessive manner. Should this individual have childrenwith a partner who is also a carrier for HH, there is a 25% chance perspring that he/she is affected. Genetic counseling and HHmolecular testing are recommended for at-risk family members.Methodology:DNA Analysis of the HFE gene was performed by PCRamplification followed by restriction enzyme digestionanalyses. .Reference:Thomas JS and Walker AP. (2000). Cee Test 4:97-101.Km ME et al. (1999). AM J Prev M ed 16:134-140.Lilibeth Biggs (2002). Lancet 360(8815):1673-86.Ludivina Duenas al. (2002). Blood Cells, Molecules. andDiseases. 29(3):418-432.Caden Santana et al. (2003). Cee Med. 5(1):1-8.Tunica ME et al. (2003). Cee Med. 5(4):304-10.Genetic counselors are available for health care providers to discussresults at [phone]. . Richard Canales, PhD Brea Diehl, PhD Josiane Lorenzo, PhD Venessa Tobias, PhD Amirah Payne, PhD Isabell Booker MD, PhD S LISBET Parsons, PhD :35 FERRITIN (85754) Comments: PATIENT NOT FASTINGPERFORMED BY: Makara ANT9693 [facility] [id number] BY: Makara Aqwavg8151 [facility] [id number] Ferritin, Serum 712 ng/mL (Abnormal) Range: 30-400 :06 HgA1C , Office (39090) HgA1C , Office 6.5 % (Normal) Range: 4.6 - 7.1 :06 Blood Glucose , Office (50183) Blood Glucose , Office 134 (Normal) :25 Uric Acid Blood (56389) Comments: PATIENT WAS FASTINGPERFORMED BY: Makara Fdexiz5284 [facility] [id number] BY: [address] [id number] Uric Acid, Serum 6.3 mg/dL (Normal) Range: 3.7-8.6 Comments: Therapeutic target for gout patients: <6.0 :25 TESTOSTERONE FREE (26207) Comments: PATIENT WAS FASTINGPERFORMED BY: Makara Febkhf7995 [facility] [id number] BY: [employer]ella [employer] Dot[address] [id number] Free Testosterone(Direct) 4.1 pg/mL (Abnormal) Range: 7.2-24.0 :25 CALCIFEDIOL (56744) Comments: PATIENT WAS FASTINGPERFORMED BY: [employer] Jltkyb7369 [facility] [id number] BY: Makara[address] [id number] Vitamin D, 25-Hydroxy 50.9 ng/mL (Normal) Range: 30.0-100.0 Comments: Vitamin D deficiency has been defined by the [place] [facility] and an Endocrine Society practice guideline as alevel of serum 25-OH vitamin D less than 20 ng/mL (1,2).The Endocrine Society went on to further define vitamin Dinsufficiency as a level between 21 and 29 ng/mL (2).1. IOM ([place] of Medicine). 2010. Dietary reference intakes for calcium and D. [place]: The National Academies Press.2. Audra MF, Erin GRIFFITHS, Brittani CEDEÑO, et al. Evaluation, treatment, and prevention of vitamin D deficiency: an Endocrine Society clinical practice guideline. JCEM. 2010; 96(7):1911-30. :25 MICROALBUMIN: CREATININE Comments: PATIENT WAS FASTINGPERFORMED BY: [employer]70 [facility] [id number] BY: Makara[address] [id number] RATIO (64304) AND (25453) Microalb/Creat Ratio 6.4 {mg/g_creat} (Normal) Range: 0.0-30.0 Creatinine, Urine 98.6 mg/dL (Normal) Range: 22.0-328.0 Microalbumin, Urine 6.3 ug/mL (Normal) Range: 0.0-17.0 :25 METABOLIC PANEL, Comments: PATIENT WAS FASTINGPERFORMED BY: [employer] Sgofcv8211 [facility] [id number] BY: Makara[address] [id number] COMPREHENSIVE (38067) ALT (SGPT) 31 [iU]/L (Normal) Range: 0-44 AST (SGOT) 29 [iU]/L (Normal) Range: 0-40 Alkaline Phosphatase, S 47 [iU]/L (Normal) Range: 39-117 Bilirubin, Total 0.3 mg/dL (Normal) Range: 0.0-1.2 A/G Ratio 1.7 (Normal) Range: 1.1-2.5 Globulin, Total 2.2 g/dL (Normal) Range: 1.5-4.5 Albumin, Serum 3.8 g/dL (Normal) Range: 3.5-5.5 Protein, Total, Serum 6.0 g/dL (Normal) Range: 6.0-8.5 Calcium, Serum 9.6 mg/dL (Normal) Range: 8.7-10.2 Carbon Dioxide, Total 27 mmol/L (Normal) Range: 19-28 Chloride, Serum 100 mmol/L (Normal) Range: 97-108 Potassium, Serum 5.1 mmol/L (Normal) Range: 3.5-5.2 Sodium, Serum 139 mmol/L (Normal) Range: 134-144 BUN/Creatinine Ratio 16 (Normal) Range: 9-20 eGFR If Africn Am 116 mL/min/1.73 (Normal) eGFR If NonAfricn Am 100 mL/min/1.73 (Normal) Creatinine, Serum 0.87 mg/dL (Normal) Range: 0.76-1.27 BUN 14 mg/dL (Normal) Range: 6-24 Glucose, Serum 125 mg/dL (Abnormal) Range: 65-99 :25 LIPID PANEL (99724) Comments: PATIENT WAS FASTINGPERFORMED BY: CB [facility] Dqeydv2384 [facility] [id number] BY: BN [facility] Tmrumnwskd9003 [facility] [id number] HDL Cholesterol 25 mg/dL (Abnormal) Comments: According to ATP-III Guidelines, HDL-C >59 mg/dL is considered anegative risk factor for CHD. VLDL Cholesterol Tyrees VLDLCH mg/dL (Normal) Range: 5-40 Comments: The calculation for the VLDL cholesterol is not valid whentriglyceride level is >400 mg/dL.Triglyceride result indicated is too high for an accurate LDLcholesterol estimation. Cholesterol, Total 149 mg/dL (Normal) Range: 100-199 Triglycerides 408 mg/dL (Abnormal) Range: 0-149 :25 CBC WITH MANUAL DIFF Comments: PATIENT WAS FASTINGPERFORMED BY: CB [facility] Ycvszk6439 Luanne PattersonHugh Ch[facility] Hospitaldel[facility] [place] [id number] BY: BN [facility] [id number] [facility] [id number] Inf ormation: [id number] (27952) Immature Grans (Abs) 0.0 {x10E3/uL} (Normal) Range: 0.0-0.1 Baso (Absolute) 0.0 {x10E3/uL} (Normal) Range: 0.0-0.2 Immature Granulocytes 0 % (Normal) Range: 0-2 Eos (Absolute) 0.2 {x10E3/uL} (Normal) Range: 0.0-0.4 Monocytes(Absolute) 0.4 {x10E3/uL} (Normal) Range: 0.1-0.9 Lymphs (Absolute) 1.5 {x10E3/uL} (Normal) Range: 0.7-3.1 Neutrophils (Absolute) 4.5 {x10E3/uL} (Normal) Range: 1.4-7.0 Basos 1 % (Normal) Range: 0-3 Eos 2 % (Normal) Range: 0-5 Lymphs 23 % (Normal) Range: 14-46 Monocytes 5 % (Normal) Range: 4-12 Neutrophils 69 % (Normal) Range: 40-74 Platelets 229 {x10E3/uL} (Normal) Range: 155-379 RDW 14.2 % (Normal) Range: 12.3-15.4 MCHC 33.2 g/dL (Normal) Range: 31.5-35.7 MCH 28.6 pg (Normal) Range: 26.6-33.0 MCV 86 fL (Normal) Range: 79-97 Hematocrit 45.8 % (Normal) Range: 37.5-51.0 Hemoglobin 15.2 g/dL (Normal) Range: 12.6-17.7 RBC 5.31 {x10E6/uL} (Normal) Range: 4.14-5.80 WBC 6.6 {x10E3/uL} (Normal) Range: 3.4-10.8 :18 HgA1C , Office (51701) HgA1C , Office 5.8 % (Normal) Range: 4.6 - 7.1 :18 Blood Glucose , Office (26119) Blood Glucose , Office 134 (Normal) :10 CBC WITH MANUAL DIFF Comments: PATIENT WAS FASTINGPERFORMED BY: CB [facility] Htpmhn9448 Luanne [facility] [id number] BY: BN [facility] [id number] [facility] [id number] Inf ormation: [id number] (64570) Immature Grans (Abs) 0.0 {x10E3/uL} (Normal) Range: 0.0-0.1 Immature Granulocytes 0 % (Normal) Range: 0-2 Baso (Absolute) 0.0 {x10E3/uL} (Normal) Range: 0.0-0.2 Eos (Absolute) 0.2 {x10E3/uL} (Normal) Range: 0.0-0.4 Monocytes(Absolute) 0.8 {x10E3/uL} (Normal) Range: 0.1-1.0 Lymphs (Absolute) 1.4 {x10E3/uL} (Normal) Range: 0.7-4.5 Neutrophils (Absolute) 6.4 {x10E3/uL} (Normal) Range: 1.8-7.8 Basos 1 % (Normal) Range: 0-3 Eos 2 % (Normal) Range: 0-7 Monocytes 9 % (Normal) Range: 4-13 Lymphs 16 % (Normal) Range: 14-46 Neutrophils 72 % (Normal) Range: 40-74 Platelets 237 {x10E3/uL} (Normal) Range: 140-415 RDW 14.8 % (Normal) Range: 12.3-15.4 MCHC 33.8 g/dL (Normal) Range: 31.5-35.7 MCH 29.0 pg (Normal) Range: 26.6-33.0 MCV 86 fL (Normal) Range: 79-97 Hematocrit 46.5 % (Normal) Range: 37.5-51.0 Hemoglobin 15.7 g/dL (Normal) Range: 12.6-17.7 RBC 5.42 {x10E6/uL} (Normal) Range: 4.14-5.80 WBC 8.8 {x10E3/uL} (Normal) Range: 4.0-10.5 :10 Ferritin (80584) Comments: PATIENT WAS FASTINGPERFORMED BY: [place] 9573470 [facility] [id number] BY: [address] [id number] Ferritin, Serum 472 ng/mL (Abnormal) Range: 30-400 :10 LIPID PANEL (16863) Comments: PATIENT WAS FASTINGPERFORMED BY: [employer] DigitalPhyll[place] 9573470 [facility] [id number] BY: [employer] [id number] LDL/HDL Ratio 2.3 {ratio_units} (Normal) Range: 0.0-3.6 LDL Cholesterol Calc 62 mg/dL (Normal) Range: 0-99 VLDL Cholesterol Tyrese 68 mg/dL (Abnormal) Range: 5-40 HDL Cholesterol 27 mg/dL (Abnormal) Comments: According to ATP-III Guidelines, HDL-C >59 mg/dL is considered anegative risk factor for CHD. Triglycerides 342 mg/dL (Abnormal) Range: 0-149 Cholesterol, Total 157 mg/dL (Normal) Range: 100-199 :10 METABOLIC PANEL, Comments: PATIENT WAS FASTINGPERFORMED BY: [employer] DigitalP[place] 9573470 [facility] [id number] BY: [employer] [address] [id number] COMPREHENSIVE (04235) ALT (SGPT) 21 [iU]/L (Normal) Range: 0-44 AST (SGOT) 15 [iU]/L (Normal) Range: 0-40 Alkaline Phosphatase, S 46 [iU]/L (Normal) Range: 25-150 Bilirubin, Total 0.4 mg/dL (Normal) Range: 0.0-1.2 A/G Ratio 1.9 (Normal) Range: 1.1-2.5 Globulin, Total 2.2 g/dL (Normal) Range: 1.5-4.5 Albumin, Serum 4.2 g/dL (Normal) Range: 3.5-5.5 Protein, Total, Serum 6.4 g/dL (Normal) Range: 6.0-8.5 Calcium, Serum 9.7 mg/dL (Normal) Range: 8.7-10.2 Carbon Dioxide, Total 27 mmol/L (Normal) Range: 19-28 Chloride, Serum 100 mmol/L (Normal) Range: 97-108 Potassium, Serum 4.6 mmol/L (Normal) Range: 3.5-5.2 Sodium, Serum 140 mmol/L (Normal) Range: 134-144 BUN/Creatinine Ratio 20 (Normal) Range: 9-20 eGFR If Africn Am 116 mL/min/1.73 (Normal) eGFR If NonAfricn Am 100 mL/min/1.73 (Normal) Creatinine, Serum 0.88 mg/dL (Normal) Range: 0.76-1.27 BUN 18 mg/dL (Normal) Range: 6-24 Glucose, Serum 134 mg/dL (Abnormal) Range: 65-99 :10 MICROALBUMIN: CREATININE Comments: PATIENT WAS FASTINGPERFORMED BY: [employer] [facility] [id number] BY: Makara[address] [id number] RATIO (63973) AND (98709) Microalb/Creat Ratio 5.7 {mg/g_creat} (Normal) Range: 0.0-30.0 Microalbumin, Urine 6.6 ug/mL (Normal) Range: 0.0-17.0 Creatinine, Urine 115.6 mg/dL (Normal) Range: 22.0-328.0 :10 PSA (PROSTATE SPECIFIC Comments: PATIENT WAS FASTINGPERFORMED BY: [employer] [facility] [id number] BY: Makara[address] [id number] ANTIGEN) (V76.44) Prostate Specific Ag, 1.2 ng/mL (Normal) Range: 0.0-4.0 Serum Comments: Yany ECLIA methodology. .According to the [place] [employer], Serum PSA shoulddecrease and remain at undetectable levels after radicalprostatectomy. The AUA defines biochemical recurrence as an initialPSA value 0.2 ng/mL or greater followed by a subsequent confirmatoryPSA value 0.2 ng/mL or greater.Values obtained with d ifferent assay methods or kits cannot be usedinterchangeably. Results cannot be interpreted as absolute evidenceof the presence or absence of malignant disease. :10 TESTOSTERONE FREE (54761) Comments: PATIENT WAS FASTINGPERFORMED BY: Makara Qvppos5711 [facility] [id number] BY: [employer] [id number] Free Testosterone(Direct) 11.2 pg/mL (Normal) Range: 7.2-24.0 :10 Uric Acid Blood (59302) Comments: PATIENT WAS FASTINGPERFORMED BY: Makara Bcrfzq4994 [facility] [id number] BY: Makara[address] [id number] Uric Acid, Serum 5.7 mg/dL (Normal) Range: 3.7-8.6 Comments: Therapeutic target for gout patients: <6.0 :03 LIPID PANEL (04382) Comments: PATIENT WAS FASTINGPERFORMED BY: [place] 9573470 [facility] [id number] Information: [id number] LDL/HDL Ratio 2.6 {ratio_units} (Normal) Range: 0.0-3.6 LDL Cholesterol Calc 67 mg/dL (Normal) Range: 0-99 VLDL Cholesterol Tyrese 78 mg/dL (Abnormal) Range: 5-40 HDL Cholesterol 26 mg/dL (Abnormal) Comments: According to ATP-III Guidelines, HDL-C >59 mg/dL is considered anegative risk factor for CHD. Triglycerides 390 mg/dL (Abnormal) Range: 0-149 Cholesterol, Total 171 mg/dL (Normal) Range: 100-199 :50 HgA1C , Office (73495) HgA1C , Office 6.7 % (Normal) Range: 4.6 - 7.1 :50 Blood Glucose , Office (90953) Blood Glucose , Office 109 (Normal) :06 CBC WITH MANUAL DIFF Comments: PATIENT WAS FASTINGPERFORMED BY: CB [facility] Wgrtpt3205 Luanne Pham [place] [id number] BY: BN [facility] [id number] [facility] [id number] Inf ormation: [id number] (32873) Immature Grans (Abs) 0.0 {x10E3/uL} (Normal) Range: 0.0-0.1 Immature Granulocytes 0 % (Normal) Range: 0-2 Baso (Absolute) 0.0 {x10E3/uL} (Normal) Range: 0.0-0.2 Eos (Absolute) 0.2 {x10E3/uL} (Normal) Range: 0.0-0.4 Monocytes(Absolute) 0.7 {x10E3/uL} (Normal) Range: 0.1-1.0 Lymphs (Absolute) 1.5 {x10E3/uL} (Normal) Range: 0.7-4.5 Neutrophils (Absolute) 5.0 {x10E3/uL} (Normal) Range: 1.8-7.8 Basos 1 % (Normal) Range: 0-3 Eos 3 % (Normal) Range: 0-7 Monocytes 10 % (Normal) Range: 4-13 Lymphs 20 % (Normal) Range: 14-46 Neutrophils 66 % (Normal) Range: 40-74 Platelets 251 {x10E3/uL} (Normal) Range: 140-415 RDW 14.4 % (Normal) Range: 12.3-15.4 MCHC 32.0 g/dL (Normal) Range: 31.5-35.7 MCH 27.6 pg (Normal) Range: 26.6-33.0 MCV 86 fL (Normal) Range: 79-97 Hematocrit 48.1 % (Normal) Range: 37.5-51.0 Hemoglobin 15.4 g/dL (Normal) Range: 12.6-17.7 RBC 5.58 {x10E6/uL} (Normal) Range: 4.14-5.80 WBC 7.5 {x10E3/uL} (Normal) Range: 4.0-10.5 :06 Ferritin (74108) Comments: PATIENT WAS FASTINGPERFORMED BY: [employer] Digital[place] 9573470 [facility] [id number] BY: [address] [id number] Ferritin, Serum 501 ng/mL (Abnormal) Range: 30-400 :06 LIPID PANEL (80156) Comments: PATIENT WAS FASTINGPERFORMED BY: [employer] Digital[place] 9573470 [facility] [id number] BY: [address] [id number] VLDL Cholesterol Tyrese VLDLCH mg/dL (Normal) Range: 5-40 Comments: The calculation for the VLDL cholesterol is not valid whentriglyceride level is >400 mg/dL.Triglyceride result indicated is too high for an accurate LDLcholesterol estimation. Cholesterol, Total 159 mg/dL (Normal) Range: 100-199 HDL Cholesterol 27 mg/dL (Abnormal) Comments: According to ATP-III Guidelines, HDL-C >59 mg/dL is considered anegative risk factor for CHD. Triglycerides 542 mg/dL (Abnormal) Range: 0-149 :06 METABOLIC PANEL, Comments: PATIENT WAS FASTINGPERFORMED BY: [place] Digital[place] 9573470 [facility] [id number] BY: [address] [id number] COMPREHENSIVE (59518) ALT (SGPT) 32 [iU]/L (Normal) Range: 0-44 AST (SGOT) 26 [iU]/L (Normal) Range: 0-40 Alkaline Phosphatase, S 50 [iU]/L (Normal) Range: 25-150 Bilirubin, Total 0.3 mg/dL (Normal) Range: 0.0-1.2 A/G Ratio 1.8 (Normal) Range: 1.1-2.5 Globulin, Total 2.3 g/dL (Normal) Range: 1.5-4.5 Albumin, Serum 4.1 g/dL (Normal) Range: 3.5-5.5 Protein, Total, Serum 6.4 g/dL (Normal) Range: 6.0-8.5 Calcium, Serum 9.8 mg/dL (Normal) Range: 8.7-10.2 Carbon Dioxide, Total 26 mmol/L (Normal) Range: 20-32 Chloride, Serum 100 mmol/L (Normal) Range: 97-108 Potassium, Serum 4.5 mmol/L (Normal) Range: 3.5-5.2 Sodium, Serum 138 mmol/L (Normal) Range: 134-144 BUN/Creatinine Ratio 18 (Normal) Range: 9-20 eGFR If Africn Am 116 mL/min/1.73 (Normal) eGFR If NonAfricn Am 100 mL/min/1.73 (Normal) Creatinine, Serum 0.88 mg/dL (Normal) Range: 0.76-1.27 BUN 16 mg/dL (Normal) Range: 6-24 Glucose, Serum 136 mg/dL (Abnormal) Range: 65-99 :06 MICROALBUMIN: CREATININE Comments: PATIENT WAS FASTINGPERFORMED BY: [employer] [facility] HospitalOxagenThe [facility] [id number] BY: [employer] [address] [id number] RATIO (78224) AND (86395) Microalb/Creat Ratio 5.8 {mg/g_creat} (Normal) Range: 0.0-30.0 Microalbumin, Urine 6.4 ug/mL (Normal) Range: 0.0-17.0 Creatinine, Urine 109.8 mg/dL (Normal) Range: 22.0-328.0 :06 PSA (PROSTATE SPECIFIC Comments: PATIENT WAS FASTINGPERFORMED BY: [employer] [facility] [id number] BY: [employer] [address] [id number] ANTIGEN) (V76.44) Prostate Specific Ag, 1.2 ng/mL (Normal) Range: 0.0-4.0 Serum Comments: Yany ECLIA methodology. .According to the [place] [employer], Serum PSA shoulddecrease and remain at undetectable levels after radicalprostatectomy. The AUA defines biochemical recurrence as an initialPSA value 0.2 ng/mL or greater followed by a subsequent confirmatoryPSA value 0.2 ng/mL or greater.Values obtained with d ifferent assay methods or kits cannot be usedinterchangeably. Results cannot be interpreted as absolute evidenceof the presence or absence of malignant disease. :06 TESTOSTERONE FREE (22924) Comments: PATIENT WAS FASTINGPERFORMED BY: [employer] Wwrpwu6927 [facility] [id number] BY: [employer] [id number] Free Testosterone(Direct) 13.7 pg/mL (Normal) Range: 7.2-24.0 :06 Uric Acid Blood (65344) Comments: PATIENT WAS FASTINGPERFORMED BY: [employer] [facility] [id number] BY: Makara[address] [id number] Uric Acid, Serum 6.0 mg/dL (Normal) Range: 3.7-8.6 Comments: Therapeutic target for gout patients: <6.0 :49 HgA1C , Office (95235) HgA1C , Office 6.8 % (Normal) Range: 4.6 - 7.1 :49 Blood Glucose , Office (34195) Blood Glucose , Office 176 (Normal) :45 HgA1C , Office (37789) HgA1C , Office 11.5 % (Abnormal) Range: 4.6 - 7.1 Comments: not put in on 12-30:01 HgA1C , Office (70345) HgA1C , Office 7.4 % (Abnormal) Range: 4.6 - 7.1 :01 Blood Glucose , Office (75864) Blood Glucose , Office 142 (Normal) 93-Pns-234132:17 CBCMD RBCM NORM C+C {NORMAL} (Normal) PLTM LARGE (Normal) PE ADEQUATE (Normal) RTL 1+ (Normal) MON 9 % (Normal) Range: 0-10 LYMPH 19 % (Normal) Range: 19-41 PMN 72 % (Abnormal) Range: 47-70 TONIO 100 (Normal) ANC 6.9 3/uL (Normal) Range: 2.0-7.7 PLT 276 K/mm3 (Normal) Range: 150-450 RDW 14.5 % (Normal) Range: 11.6-14.6 MCHC 32.8 g/dL (Normal) Range: 32-36 MCH 27.9 pg (Normal) Range: 27.0-32.0 MCV 85.0 fL (Normal) Range: 80-94 HCT 45.9 % (Normal) Range: 40-54 HGB 15.0 g.dL (Normal) Range: 13.0-16.5 RBC 5.40 {M/mm3} (Normal) Range: 4.6-6.2 WBC 9.3 K/mm3 (Normal) Range: 4.4-11.0 [id number] CMP GAP 6 (Normal) Range: 5-15 CO2 31.0 mmol/L (Normal) Range: 21.0-32.0 CL 102 mmol/L (Normal) Range: 98-107 K 4.6 mmol/L (Normal) Range: 3.5-5.1 NA 139 mmol/L (Normal) Range: 136-145 BIT 0.30 mg/dL (Normal) Range: 0.00-1.00 ALT 28 U/L (Normal) Range: 12-78 ALK 58 U/L (Normal) Range: 50-136 AST 11 U/L (Abnormal) Range: 15-37 CA 9.7 mg/dL (Normal) Range: 8.5-10.1 AG 1.0 {RATIO} (Normal) Range: 0.9-2.4 GLOB 3.3 g/dL (Normal) Range: 2.7-4.2 ALB 3.4 g/dL (Normal) Range: 3.4-5.0 TPROT 6.7 g/dL (Normal) Range: 6.4-8.2 BC 18.0 {RATIO} (Normal) Range: 10-20 GFRAA 102 mL/min (Normal) GFR 84 mL/min (Normal) CREAT 1.0 mg/dL (Normal) Range: 0.8-1.3 BUN 18 mg/dL (Normal) Range: 7-18 GLU 161 mg/dL (Abnormal) Range: 70-110 Comments: Fasting Glucose result greater than or equal to 126 mg/dL suggests DIABETES MELLITUS per A.D.A. criteria. :17 [place] 339 ng/mL (Normal) Range: 26-388 :17 LIPID VLDL 81 mg/dL (Abnormal) Range: 5-40 LDL <TEST NOT PERFORMED> mg/dL Range: 0-130 (Normal) HDL 19 mg/dL (Abnormal) Comments: Reference Range HDL <40 mg/dL Low HDL Cholesterol HDL >or= 60 mg/dL High HDL Cholesterol TRIG 405 mg/dL (Abnormal) Comments: TRIGLYCERIDE IS GREATER THAN 400 mg/dL. LDL RESULT IS INVALID AND WILL NOT BE REPORTED.Serum Triglycerides Reference Interval Normal <150 mg/dL Bor derline high 150 - 199 mg/dL High 200 - 499 mg/dL Very High > or = 500 mg/dL CHOL 149 mg/dL (Normal) Comments: <200 mg/dL Desirable 200-240 mg/dL Borderline >240 mg/dL High Risk :17 PSA 1.32 ng/mL (Normal) Range: 0.00-4.00 Comments: NEW TEST ASSAY METHOD APRIL 07, 2012This test was performed using the TPSA assay method for the[employer] chemistry system. Values obtained with differentassay methods cannot be used interchangably.When ch anging PSA assays in the course of monitoring apatient, additional sequential testing should be carriedout to confirm baseline values. :17 TESTOF 11.1 pg/mL (Normal) Range: 6.8-21.5 Comments: Performed at: [address] [id number] Director: Elton Gallego MD, Phone: [phone] :17 URIC 4.4 mg/dL (Normal) Range: 3.5-7.2 :12 HgA1C , Office (56157) HgA1C , Office 7.2 % (Abnormal) Range: 4.6 - 7.1 76-Uhq-284439:12 Blood Glucose , Office (25317) Blood Glucose , Office 113 (Normal) :01 LIPID VLDL 81 mg/dL (Abnormal) Range: 5-40 LDL <TEST NOT PERFORMED> Range: 0-130 mg/dL (Normal) HDL 20 mg/dL (Abnormal) Comments: Reference Range HDL <40 mg/dL Low HDL Cholesterol HDL >or= 60 mg/dL High HDL Cholesterol TRIG 405 mg/dL (Abnormal) Comments: TRIGLYCERIDE IS GREATER THAN 400 mg/dL. LDL RESULT IS INVALID AND WILL NOT BE REPORTED.Serum Triglycerides Reference Interval Normal <150 mg/dL Bor derline high 150 - 199 mg/dL High 200 - 499 mg/dL Very High > or = 500 mg/dL CHOL 146 mg/dL (Normal) Comments: <200 mg/dL Desirable 200-240 mg/dL Borderline >240 mg/dL High Risk :37 TEST FR [id number] 17.0 pg/mL (Normal) Comments: appt 01/04/12 Range: 6.8-21.5 Comments: Performed at: [facility] [address] [id number] Director: Dayanna Red MD, Phone: [phone] at: - [facility] [place] [id number] Director: Elton Gallego MD, Phone: [phone] :37 VIT D,25 [address]109 39.6 ng/mL (Normal) Range: 30.0-100.0 Comments: Vitamin D deficiency has been defined by the [place] [employer] and an Endocrine Society practice guideline as alevel of serum 25-OH vitamin D less than 20 ng/mL (1,2).The Endocrine Society went on to further define vitamin Dinsufficiency as a level between 21 and 29 ng/mL (2).1. IOM ([place] of [employer]). 2011. Dietary reference intakes for calcium and D. [place]: The National Academies Press.2. Audra MF, Erin NC, Brittani CEDEÑO, et al. Evaluation, treatment, and prevention of vitamin D deficiency: an Endocrine Society clinical practice guideline. JCEM. 2010; 96(7):1911-30. 00-Ecm-327079:12 CBCD,SMEAR DIFF RED CELL MORPH SeeNote {NORMAL} (Normal) Comments: Result: NORM C+C PLT EST SeeNote (Normal) Comments: Result: ADEQUATE EOS 1 % (Normal) Range: 0-5 MONOCYTE 4 % (Normal) Range: 0-10 LYMPH 14 % (Abnormal) Range: 19-41 SEGS 81 % (Abnormal) Range: 47-70 CELLS COUNTED 100 (Normal) ABSOLUTE NEUT 6.7 3/uL (Normal) Range: 2.0-7.7 PLT 283 K/mm3 (Normal) Range: 150-450 RDW 13.9 % (Normal) Range: 11.6-14.6 MCHC 33.9 g/dL (Normal) Range: 32-36 MCH 28.4 pg (Normal) Range: 27.0-32.0 MCV 83.8 fL (Normal) Range: 80-94 HCT 46.0 % (Normal) Range: 40-54 HGB 15.6 g/dL (Normal) Range: 14.0-18.0 RBC 5.49 {M/mm3} (Normal) Range: 4.6-6.2 WBC 8.3 K/mm3 (Normal) Range: 4.4-11.0 :09 FERRITIN 403 ng/mL (Abnormal) Range: 26-388 35-Tju-108890:09 LIPID VLDL 101 mg/dL (Abnormal) Range: 5-40 LDL <TEST NOT PERFORMED> mg/dL (Normal) Range: 0-130 HDL 25 mg/dL (Abnormal) Comments: Reference Range HDL <40 mg/dL Low HDL Cholesterol HDL >or= 60 mg/dL High HDL Cholesterol TRIG 505 mg/dL (Abnormal) Comments: TRIGLYCERIDE IS GREATER THAN 400 mg/dL. LDL RESULT IS INVALID AND WILL NOT BE REPORTED.Serum Triglycerides Reference Interval Normal <150 mg/dL Bor derline high 150 - 199 mg/dL High 200 - 499 mg/dL Very High > or = 500 mg/dL CHOL 168 mg/dL (Normal) Comments: <200 mg/dL Desirable 200-240 mg/dL Borderline >240 mg/dL High Risk :09 COMP METABOLIC GAP 10 (Normal) Range: 5-15 CO2 31.0 mmol/L (Normal) Range: 21.0-32.0 CL 100 mmol/L (Normal) Range: 98-107 K 4.7 mmol/L (Normal) Range: 3.5-5.1 NA 141 mmol/L (Normal) Range: 136-145 T BILI 0.40 mg/dL (Normal) Range: 0.00-1.00 ALT 36 U/L (Normal) Range: 12-78 ALK P 80 U/L (Normal) Range: 50-136 AST 15 U/L (Normal) Range: 15-37 CA 9.2 mg/dL (Normal) Range: 8.5-10.1 A/G 1.2 {RATIO} (Normal) Range: 0.9-2.4 GLOB 3.1 g/dL (Normal) Range: 2.7-4.2 ALB 3.7 g/dL (Normal) Range: 3.4-5.0 T PROT 6.8 g/dL (Normal) Range: 6.4-8.2 BUN/CRE 15.6 {RATIO} (Normal) Range: 10-20 EST GFR - AA 115 mL/min (Normal) EST GFR 95 mL/min (Normal) CREAT,SERUM 0.9 mg/dL (Normal) Range: 0.8-1.3 BUN 14 mg/dL (Normal) Range: 7-18 GLU 250 mg/dL (Abnormal) Range: 70-110 Comments: Glucose result greater than or equal to 200 mg/dLsuggests DIABETES MELLITUS per A.D.A. criteria. 92-Toc-480489:04 COMPLETE UA MUCUS, URINE 4+ {/hpf} (Normal) BACTERIA 2+ {/hpf} (Normal) SQUAM EPI SeeNote {/hpf} (Normal) Range: 0-5 Comments: Result: 0-5 SEEN RBC-UA SeeNote {/hpf} (Normal) Range: 0-5 Comments: Result: 0-5 SEEN WBC SeeNote {/hpf} (Normal) Range: 0-5 Comments: Result: 0-5 SEEN LEUK ESTERASE SeeNote (Normal) Comments: Result: NEGATIVE OCCULT BLOOD-UR SeeNote (Normal) Comments: Result: NEGATIVE NITRITE UR SeeNote (Normal) Comments: Result: NEGATIVE UROBILI 0.2 EU/dl (Normal) Range: 0.2 - 1.0 pH UR 5.5 (Normal) Range: 5.0-8.0 PROT DIPSTX TRACE (Normal) SP.GR. DIPSTX >=1.030 (Normal) Range: 1.002-1.030 KETONE UR SeeNote mg/dL (Normal) Comments: Result: NEGATIVE ICTOTEST Neg (Normal) BILIRUBIN URINE Inconcl (Normal) Comments: Dipstick inconclusive for bilirubin.See confirmatory ICTOTEST. GLUCOSE, UR 3+ (Abnormal) CLARITY CLEAR (Normal) COLOR YELLOW (Normal) :53 TESTOSTERONE FREE (38871) Comments: PATIENT NOT FASTINGPERFORMED BY: Makara[address] [id number] Information: [id number]; appt 11/02/11 Free Testosterone(Direct) 4.3 pg/mL (Abnormal) Range: 6.8-21.5 :53 Ferritin (73730) Comments: PATIENT NOT FASTINGPERFORMED BY: [facility]lyotechThe [facility] [id number] Ferritin, Serum 588 ng/mL (Abnormal) Range: 30-400 :53 CALCIFIDIOL (78109) VIT D Comments: PATIENT NOT FASTINGPERFORMED BY: [employer] Nghoyx2936 SNOBSWAPThe Outer Banks Hospital [id number] Information: [id number], 2ND ORDER NO DRAW FEE 25 Vitamin D, 25-Hydroxy 31.2 ng/mL (Normal) Range: 30.0-100.0 Comments: Vitamin D deficiency has been defined by the [place] and an Endocrine Society practice guideline as alevel of serum 25-OH vitamin D less than 20 ng/mL (1,2).The Endocrine Society went on to further define vitamin Dinsufficiency as a level between 21 and 29 ng/mL (2).1. IOM ([place] [employer]). 2011. Dietary reference intakes for calcium and D. [place]: The National Academies Press.2. Audra MF, Erin NC, Brittani CEDEÑO, et al. Evaluation, treatment, and prevention of vitamin D deficiency: an Endocrine Society clinical practice guideline. JCEM. 2010; 96(7): 1911-30. Please note reference interval change :00 Ferritin (03451) Comments: PERFORMED BY: FreeBrie[address] [id number] BY: [place] [id number] Ferritin, Serum 862 ng/mL (Abnormal) Range: 30-400 39-Zin-17303:00 Vitamin B-12 (cyanocobalamin) Comments: PERFORMED BY: [employer] [id number] BY: [facility] [facility] [id number] (11640) Vitamin B12 467 pg/mL (Normal) Range: 211-946 01-Mkc-95584:00 CALCIFIDIOL (70185) VIT D Comments: PERFORMED BY: [address] [id number] BY: [facility] [id number] 25 Vitamin D, 25-Hydroxy 7.6 ng/mL (Abnormal) Range: 32.0-100.0 Comments: Effective October 08, 2011 Vitamin D, 25-Hydroxy reference intervals will be changing to 30-100. .Recent studies consider the lower li ash of 32.0 ng/mL to be athreshold for optimal health.Alber WATTS. J Nutr. 2004;135(2):317-22. 29-Tpm-98902:00 TESTOSTERONE FREE (48147) Comments: PERFORMED BY: [address] [id number] BY: [facility] [id number] Free Testosterone(Direct) 3.1 pg/mL (Abnormal) Range: 6.8-21.5 :45 HgA1C , Office (61149) HgA1C , Office 6.8 % (Normal) Range: 4.6 - 7.1 :45 Blood Glucose , Office (47394) Blood Glucose , Office 132 (Normal) 98-Sat-61112:00 FSH, Serum Comments: PERFORMED BY: [facility] [id number]; appt 09/21/11 FSH 4.1 m[iU]/mL (Normal) Range: 1.5-12.4 :00 Luteinizing Hormone(LH), S Comments: PERFORMED BY: [facility] [id number] LH 3.4 m[iU]/mL Range: 1.7-8.6 (Normal) Methylmalonic Acid, 165 nmol/L Comments: PERFORMED BY: [address] [id number] BY: [place] [address]2670 [facility] [id number] :00 Serum (Normal) Range: 73-376 Comments: The reference range for methylmalonic acid has been set at +3sd abovethe mean for healthy blood bank donors. In the clinical assessment ofpatients with megaloblastic anemias a cutoff of +3sd provides gr eaterspecificity in the diagnosis of the vitamin deficiency states,despite the sacrifice of some sensitivity. Written Authorization WAR (Normal) Comments: PERFORMED BY: [facility]6[address] [facility] [id number] :00 Comments: Written Authorization Received.Authorization received from SAMINA GOMEZ 06-21-4441Tlyrth by Kristen Neri :57 Microscopic Examination Comments: PATIENT WAS FASTINGPERFORMED BY: [facility] [id number] Bacteria None seen (Normal) Cast Type Hyaline casts (Normal) Casts Present {/lpf} (Abnormal) Epithelial Cells (non renal) None seen {/hpf} (Normal) Range: 0 - 10 RBC 0-3 {/hpf} (Normal) Range: 0 - 3 WBC 0-5 {/hpf} (Normal) Range: 0 - 5 :57 Uric Acid Blood (80052) Comments: PATIENT WAS FASTINGPERFORMED BY: [facility] [id number] Uric Acid, Serum 5.3 mg/dL (Normal) Range: 3.7-8.6 Comments: Therapeutic target for gout patients: <6.0 :57 URINALYSIS, W/ MICRO (63676) Comments: PATIENT WAS FASTINGPERFORMED BY: [employer]6370 [facility] [id number] Microscopic Examination See below: (Normal) Microscopic Examination MICRON (Normal) Comments: Microscopic follows if indicated. Nitrite, Urine Negative (Normal) Urobilinogen,Semi-Qn 0.2 mg/dL (Normal) Range: 0.0-1.9 Bilirubin Negative (Normal) Occult Blood Negative (Normal) Ketones Negative (Normal) Glucose Negative (Normal) Protein Negative (Normal) WBC Esterase Negative (Normal) Appearance Clear (Normal) Urine-Color Yellow (Normal) pH 6.5 (Normal) Range: 5.0-7.5 Specific [place] 1.024 (Normal) Range: 1.005-1.030 :57 METABOLIC PANEL, COMPREHENSIVE Comments: PATIENT WAS FASTINGPERFORMED BY: [employer] [facility] [id number] (08625) ALT (SGPT) 24 [iU]/L (Normal) Range: 0-55 AST (SGOT) 17 [iU]/L (Normal) Range: 0-40 Alkaline Phosphatase, S 71 [iU]/L (Normal) Range: 25-150 Bilirubin, Total 0.2 mg/dL (Normal) Range: 0.0-1.2 A/G Ratio 1.7 (Normal) Range: 1.1-2.5 Globulin, Total 2.3 g/dL (Normal) Range: 1.5-4.5 Albumin, Serum 3.9 g/dL (Normal) Range: 3.5-5.5 Protein, Total, Serum 6.2 g/dL (Normal) Range: 6.0-8.5 Calcium, Serum 9.4 mg/dL (Normal) Range: 8.7-10.2 Carbon Dioxide, Total 29 mmol/L (Normal) Range: 20-32 Chloride, Serum 101 mmol/L (Normal) Range: 97-108 Potassium, Serum 4.8 mmol/L (Normal) Range: 3.5-5.2 Sodium, Serum 141 mmol/L (Normal) Range: 135-145 BUN/Creatinine Ratio 22 (Abnormal) Range: 9-20 eGFR If Africn Am 116 mL/min/1.73 (Normal) Comments: Note: A persistent eGFR <60 mL/min/1.73 m2 (3 months or more) mayindicate chronic kidney disease. An eGFR >59 mL/min/1.73 m2 with anelevated urine protein also may indicate chronic kidney disease.Calculated using CKD-EPI formula. eGFR If NonAfricn Am 101 mL/min/1.73 (Normal) Creatinine, Serum 0.90 mg/dL (Normal) Range: 0.76-1.27 BUN 20 mg/dL (Normal) Range: 6-24 Glucose, Serum 174 mg/dL (Abnormal) Range: 65-99 :57 LIPID PANEL (26099) Comments: PATIENT WAS FASTINGPERFORMED BY: [employer]70 SNOBSWAPThe [facility]er Banks [facility] [id number] VLDL Cholesterol Tyrese VLDLCH mg/dL (Normal) Range: 5-40 Comments: The calculation for the VLDL cholesterol is not valid whentriglyceride level is >400 mg/dL.Triglyceride result indicated is too high for an accurate LDLcholesterol estimation. HDL Cholesterol 24 mg/dL (Abnormal) Comments: According to ATP-III Guidelines, HDL-C >59 mg/dL is considered anegative risk factor for CHD. Triglycerides 440 mg/dL (Abnormal) Range: 0-149 Cholesterol, Total 149 mg/dL (Normal) Range: 100-199 :57 CBC WITH MANUAL DIFF Comments: PATIENT WAS FASTINGPERFORMED BY: [employer] [facility] [id number] Information: [id number]; appt 09/06/11 (02069) Immature Grans (Abs) 0.0 {x10E3/uL} (Normal) Range: 0.0-0.1 Immature Granulocytes 0 % (Normal) Range: 0-2 Baso (Absolute) 0.1 {x10E3/uL} (Normal) Range: 0.0-0.2 Eos (Absolute) 0.3 {x10E3/uL} (Normal) Range: 0.0-0.4 Monocytes(Absolute) 1.0 {x10E3/uL} (Normal) Range: 0.1-1.0 Lymphs (Absolute) 1.7 {x10E3/uL} (Normal) Range: 0.7-4.5 Neutrophils (Absolute) 6.6 {x10E3/uL} (Normal) Range: 1.8-7.8 Basos 1 % (Normal) Range: 0-3 Eos 4 % (Normal) Range: 0-7 Monocytes 10 % (Normal) Range: 4-13 Lymphs 18 % (Normal) Range: 14-46 Neutrophils 67 % (Normal) Range: 40-74 Platelets 296 {x10E3/uL} (Normal) Range: 140-415 RDW 13.9 % (Normal) Range: 11.7-15.0 MCHC 32.3 g/dL (Normal) Range: 32.0-36.0 MCH 27.9 pg (Normal) Range: 27.0-34.0 MCV 87 fL (Normal) Range: 80-98 Hematocrit 41.5 % (Normal) Range: 36.0-50.0 Hemoglobin 13.4 g/dL (Normal) Range: 12.5-17.0 RBC 4.80 {x10E6/uL} (Normal) Range: 4.10-5.60 WBC 9.7 {x10E3/uL} (Normal) Range: 4.0-10.5 :56 Uric Acid Blood (06112) Comments: PATIENT WAS FASTINGPERFORMED BY: [facility] DigitalCapital [facility][id number] [facility] [id number] Uric Acid, Serum 5.0 mg/dL (Normal) Range: 3.7-8.6 Comments: Therapeutic target for gout patients: <6.0 :56 URINALYSIS, W/ MICRO (19537) Comments: PATIENT WAS FASTINGPERFORMED BY: [facility] DigitalCap[facility]Axgwtm3385 [facility] [id number] Microscopic Examination See below: (Normal) Bilirubin Negative (Normal) Microscopic Examination MICRON (Normal) Comments: Microscopic follows if indicated. Nitrite, Urine Negative (Normal) Occult Blood Negative (Normal) Urobilinogen,Semi-Qn 0.2 mg/dL (Normal) Range: 0.0-1.9 Glucose Negative (Normal) Ketones Negative (Normal) Protein Negative (Normal) Appearance Clear (Normal) pH 6.5 (Normal) Range: 5.0-7.5 Urine-Color Yellow (Normal) WBC Esterase Negative (Normal) Specific [place] 1.020 (Normal) Range: 1.005-1.030 :56 METABOLIC PANEL, COMPREHENSIVE Comments: PATIENT WAS FASTINGPERFORMED BY: [facility] Gajqlg6689 [facility] [id number] (47492) A/G Ratio 1.7 (Normal) Range: 1.1-2.5 Alkaline Phosphatase, S 58 [iU]/L (Normal) Range: 25-150 ALT (SGPT) 37 [iU]/L (Normal) Range: 0-55 AST (SGOT) 33 [iU]/L (Normal) Range: 0-40 Bilirubin, Total 0.4 mg/dL (Normal) Range: 0.0-1.2 Albumin, Serum 3.9 g/dL (Normal) Range: 3.5-5.5 Globulin, Total 2.3 g/dL (Normal) Range: 1.5-4.5 Protein, Total, Serum 6.2 g/dL (Normal) Range: 6.0-8.5 Calcium, Serum 9.4 mg/dL (Normal) Range: 8.7-10.2 Carbon Dioxide, Total 27 mmol/L (Normal) Range: 20-32 Chloride, Serum 103 mmol/L (Normal) Range: 97-108 Potassium, Serum 4.2 mmol/L (Normal) Range: 3.5-5.2 BUN/Creatinine Ratio 16 (Normal) Range: 9-20 eGFR If Africn Am 115 mL/min/1.73 (Normal) Comments: Note: A persistent eGFR <60 mL/min/1.73 m2 (3 months or more) mayindicate chronic kidney disease. An eGFR >59 mL/min/1.73 m2 with anelevated urine protein also may indicate chronic kidney disease.Calculated using CKD-EPI formula. eGFR If NonAfricn Am 99 mL/min/1.73 (Normal) Sodium, Serum 142 mmol/L (Normal) Range: 135-145 Creatinine, Serum 0.91 mg/dL (Normal) Range: 0.76-1.27 BUN 15 mg/dL (Normal) Range: 6-24 Glucose, Serum 113 mg/dL (Abnormal) Range: 65-99 :56 LIPID PANEL (52642) Comments: PATIENT WAS FASTINGPERFORMED BY: [facility]Cap[facility][id number] [facility] [id number] LDL/HDL Ratio 2.1 {ratio_units} (Normal) Range: 0.0-3.6 Cholesterol, Total 151 mg/dL (Normal) Range: 100-199 HDL Cholesterol 36 mg/dL (Abnormal) Comments: According to ATP-III Guidelines, HDL-C >59 mg/dL is considered anegative risk factor for CHD. LDL Cholesterol Calc 74 mg/dL (Normal) Range: 0-99 Triglycerides 206 mg/dL (Abnormal) Range: 0-149 VLDL Cholesterol Tyrese 41 mg/dL (Abnormal) Range: 5-40 85-Wmy-18602:56 CBC WITH MANUAL DIFF Comments: PATIENT WAS FASTINGPERFORMED BY: [facility]Cap[facility]Bqzxtp3455 [facility] [id number] Information: [id number], NO DRAW FEE 2ND OR NEIL (42828) Immature Grans (Abs) 0.0 {x10E3/uL} (Normal) Range: 0.0-0.1 Immature Granulocytes 0 % (Normal) Range: 0-2 Comments: Please note reference interval change Baso (Absolute) 0.0 {x10E3/uL} (Normal) Range: 0.0-0.2 Eos (Absolute) 0.2 {x10E3/uL} (Normal) Range: 0.0-0.4 Lymphs (Absolute) 1.7 {x10E3/uL} (Normal) Range: 0.7-4.5 Monocytes(Absolute) 0.6 {x10E3/uL} (Normal) Range: 0.1-1.0 Neutrophils (Absolute) 4.4 {x10E3/uL} (Normal) Range: 1.8-7.8 Basos 1 % (Normal) Range: 0-3 Eos 3 % (Normal) Range: 0-7 Lymphs 24 % (Normal) Range: 14-46 Monocytes 9 % (Normal) Range: 4-13 Neutrophils 63 % (Normal) Range: 40-74 Platelets 222 {x10E3/uL} (Normal) Range: 140-415 RDW 14.1 % (Normal) Range: 11.7-15.0 MCH 28.6 pg (Normal) Range: 27.0-34.0 MCHC 33.2 g/dL (Normal) Range: 32.0-36.0 MCV 86 fL (Normal) Range: 80-98 Hematocrit 42.2 % (Normal) Range: 36.0-50.0 Hemoglobin 14.0 g/dL (Normal) Range: 12.5-17.0 RBC 4.89 {x10E6/uL} (Normal) Range: 4.10-5.60 WBC 7.1 {x10E3/uL} (Normal) Range: 4.0-10.5 :56 Microscopic Examination Comments: PATIENT WAS FASTINGPERFORMED BY: [facility]6370 [facility] [id number] Bacteria Few (Normal) Mucus Threads Present (Normal) Epithelial Cells (non renal) 0-10 {/hpf} (Normal) Range: 0 - 10 RBC 0-3 {/hpf} (Normal) Range: 0 - 3 WBC 0-5 {/hpf} (Normal) Range: 0 - 5 :36 BILAT DIAG DIGITAL & CAD Radiology Report See Note (Normal) Comments: MAMMOGRAPHY - BILATERAL DIAGNOSTIC INDICATION:Male, 50 years old. PERTINENT HISTORY:The patient presents with a lump deep to the left areolar. TECHNIQUE:Digital examination. Mediolateral obl ique (MLO) a nd craniocaudad (CC)viewsof both breasts were obtained. CAD: CAD was performed on this study. COMPARISON:None. FINDINGS:The breast composition is almost entirely fatty replaced. There are no masses or s uspicious microcalcifications. Glandular tissueisseen deep to the left areolar. Findings are in keeping with gynecomastia.Atargeted ultrasound of the left breast is suggested. No other significant abnor malities are identified. IMPRESSION:Small amount of breast tissue is seen in the left retroareolar area.Correlation with an ultrasound is suggested. ASSESSMENT CATEGORY:BIRADS Category 0: Need Additiona l Imaging Evaluation. A letter regardingthese results will be sent to the patient by the facility within 30 days. Approximately 10% of breast cancers are not detected by mammography. Anormal mammogram s hould not delay biopsy of a clinically suspiciousabnormality. Dictated on 04/09/11 0750 by Pedicelli Dino SILVAbed on 04/09/11 0913 by ITS IMPORTSign by Hood Thornton MD on 04/09/11 09 14 Sign by: Hood Thornton MD :36 BREAST UNILATERAL Radiology Report See Note (Normal) Comments: CLINICAL:Female, 50 years years old. The patient presents with a possible leftbreast mass. ULTRASOUND BREAST(S) - LEFT TECHNIQUE:Real-time ultrasonography and static grayscale imaging was pe rformed. DENNISE HNICAL QUALITY:Adequate. COMPARISON:None. FINDINGS: LEFT BREAST : There is a mild degree of dilatation of the retro-areolar ducts. No masslesion is seen. IMPRESSION:Dilatation of the retro-areolar ducts . No mass lesion is seen. Dictated on 04/09/11 0840 by Xiomara Thornton MDribed on 04/09/11 1029 by ITS IMPORTSign by Hood Thornton MD on 04/09/11 1030 Sign by: Hood Thornton MD 90-Xpa-99015:54 TSH (25893) Comments: PATIENT WAS FASTINGPERFORMED BY: [facility] [id number] Information: [id number] TSH 2.330 {uIU/mL} (Normal) Range: 0.450-4.500 :54 PROLACTIN (48897) Comments: PATIENT WAS FASTINGPERFORMED BY: [employer] Qfbqlb8349 [facility] [id number] Prolactin 14.7 ng/mL (Normal) Range: 4.0-15.2 :54 HCG (HUMAN CHORIONIC Comments: PATIENT WAS FASTINGPERFORMED BY: [facility]Ureiuo5558 [facility] [id number] GONADOTROPIN) (94656) hCG,Beta Subunit,Qual,Serum Negative m[iU]/mL Comments: . Negative <6Qualitative HCG reference interval applies only for pregnancyevaluation. (Normal) :55 Blood Glucose , Office (69487) Blood Glucose , Office 105 (Normal) :55 HgA1C , Office (67390) HgA1C , Office 6.1 % (Normal) Range: 4.6 - 7.1 :35 PSA (PROSTATE SPECIFIC Comments: PATIENT NOT FASTINGPERFORMED BY: [employer]ara Vytuuj2909 [facility] [id number] Information: [id number] ANTIGEN) (V76.44) Prostate Specific Ag, 1.0 ng/mL (Normal) Range: 0.0-4.0 Serum Comments: [employer] ECLIA methodology. .According to the [place] [employer], Serum PSA shoulddecrease and remain at undetectable levels after radicalprostatectomy. The AUA defines biochemical recurrence as an initialPSA value 0.2 ng/mL or greater followed by a subsequent confirmatoryPSA value 0.2 ng/mL or greater.Values obtained with d ifferent assay methods or kits cannot be usedinterchangeably. Results cannot be interpreted as absolute evidenceof the presence or absence of malignant disease. :43 Microscopic Examination Comments: PATIENT WAS FASTINGPERFORMED BY: [employer] Dnqaxk5537 [facility] [id number] Bacteria None seen (Normal) Epithelial Cells (non None seen {/hpf} Range: 0 - 10 renal) (Normal) RBC None seen {/hpf} Range: 0 - 3 (Normal) WBC 0-5 {/hpf} (Normal) Range: 0 - 5 C difficile Toxins Negative (Normal) Comments: PERFORMED BY: Makara Rlbdge3400 [facility] [id number] 4:25 A+B, EIA 66-Oha-657471:25 Ova + Parasite Exam Comments: PERFORMED BY: [employer] [id number] Result 1 NOCP (Normal) Comments: No ova, cysts, or parasites seen. Ova + Parasite Exam Final report (Normal) Comments: These results were obtained using wet preparation(s) and trichromestained smear. This test does not include testing for Cryptosporidiumparvum, Cyclospora, or Microsporidia. 70-Sbc-393434:25 Stool Culture Comments: PERFORMED BY: [facility] [id number] Information: SRC:ST E coli Shiga Toxin EIA Negative (Normal) Result 1 NCI (Normal) Comments: No Campylobacter species isolated. Campylobacter Culture Final report (Normal) Result 1 NSS (Normal) Comments: No Salmonella or Shigella recovered. Salmonella/Shigella Screen Final report (Normal) :43 URINALYSIS, W/ MICRO (21033) Comments: PATIENT WAS FASTINGPERFORMED BY: [employer] Wtcamb2241 [facility] [id number] Microscopic Examination See below: (Normal) Bilirubin Negative (Normal) Glucose Negative (Normal) Ketones Negative (Normal) Microscopic Examination MICRON (Normal) Comments: Microscopic follows if indicated. Nitrite, Urine Negative (Normal) Occult Blood Negative (Normal) Urobilinogen,Semi-Qn 0.2 mg/dL (Normal) Range: 0.0-1.9 Appearance Clear (Normal) Protein Negative (Normal) Urine-Color Yellow (Normal) WBC Esterase Negative (Normal) pH 7.0 (Normal) Range: 5.0-7.5 Specific [place] 1.021 (Normal) Range: 1.005-1.030 :43 METABOLIC PANEL, COMPREHENSIVE Comments: PATIENT WAS FASTINGPERFORMED BY: [facility] [facility] [id number] ([id number]) ALT (SGPT) 17 [iU]/L (Normal) Range: 0-55 A/G Ratio 1.8 (Normal) Range: 1.1-2.5 Albumin, Serum 4.1 g/dL (Normal) Range: 3.5-5.5 Alkaline Phosphatase, S 52 [iU]/L (Normal) Range: 25-150 AST (SGOT) 19 [iU]/L (Normal) Range: 0-40 Bilirubin, Total 0.3 mg/dL (Normal) Range: 0.0-1.2 Globulin, Total 2.3 g/dL (Normal) Range: 1.5-4.5 Protein, Total, Serum 6.4 g/dL (Normal) Range: 6.0-8.5 Calcium, Serum 9.5 mg/dL (Normal) Range: 8.7-10.2 Carbon Dioxide, Total 28 mmol/L (Normal) Range: 20-32 Chloride, Serum 103 mmol/L (Normal) Range: 97-108 Potassium, Serum 4.8 mmol/L (Normal) Range: 3.5-5.2 BUN 21 mg/dL (Normal) Range: 5-26 BUN/Creatinine Ratio 21 (Normal) Range: 8-27 Creatinine, Serum 1.00 mg/dL (Normal) Range: 0.76-1.27 eGFR >59 mL/min/1.73 (Normal) eGFR AfricanAmerican >59 mL/min/1.73 Comments: Note: Persistent reduction for 3 months or more in an eGFR<60 mL/min/1.73 m2 defines CKD. Patients with eGFR values>/=60 mL/min/1.73 m2 may also have CKD if evidence of persistentproteinuria is (Normal) present. Additional information may be found [email or web address]. Sodium, Serum 141 mmol/L (Normal) Range: 135-145 Glucose, Serum 114 mg/dL (Abnormal) Range: 65-99 :43 LIPID PANEL (27310) Comments: PATIENT WAS FASTINGPERFORMED BY: [facility]North[facility] [id number] LDL/HDL Ratio 2.0 {ratio_units} (Normal) Range: 0.0-3.6 LDL Cholesterol Calc 85 mg/dL (Normal) Range: 0-99 VLDL Cholesterol Tyrese 34 mg/dL (Normal) Range: 5-40 HDL Cholesterol 42 mg/dL (Normal) Comments: According to ATP-III Guidelines, HDL-C >59 mg/dL is considered anegative risk factor for CHD. Triglycerides 170 mg/dL (Abnormal) Range: 0-149 Cholesterol, Total 161 mg/dL (Normal) Range: 100-199 :43 CBC WITH MANUAL DIFF Comments: PATIENT WAS FASTINGPERFORMED BY: [employer] [place]70 [facility] [id number] Information: [id number] ([id number]) Baso (Absolute) 0.1 {x10E3/uL} (Normal) Range: 0.0-0.2 Eos (Absolute) 0.3 {x10E3/uL} (Normal) Range: 0.0-0.4 Immature Grans (Abs) 0.0 {x10E3/uL} (Normal) Range: 0.0-0.1 Immature Granulocytes 0 % (Normal) Range: 0-1 Lymphs (Absolute) 1.6 {x10E3/uL} (Normal) Range: 0.7-4.5 Monocytes(Absolute) 0.8 {x10E3/uL} (Normal) Range: 0.1-1.0 Basos 1 % (Normal) Range: 0-3 Eos 3 % (Normal) Range: 0-7 Neutrophils (Absolute) 5.7 {x10E3/uL} (Normal) Range: 1.8-7.8 Lymphs 19 % (Normal) Range: 14-46 MCH 28.1 pg (Normal) Range: 27.0-34.0 MCHC 31.8 g/dL (Abnormal) Range: 32.0-36.0 Monocytes 9 % (Normal) Range: 4-13 Neutrophils 68 % (Normal) Range: 40-74 Platelets 274 {x10E3/uL} (Normal) Range: 140-415 RDW 13.7 % (Normal) Range: 11.7-15.0 Hematocrit 43.1 % (Normal) Range: 36.0-50.0 Hemoglobin 13.7 g/dL (Normal) Range: 12.5-17.0 MCV 88 fL (Normal) Range: 80-98 RBC 4.88 {x10E6/uL} (Normal) Range: 4.10-5.60 WBC 8.4 {x10E3/uL} (Normal) Range: 4.0-10.5 :11 Hepatic Function Panel (7) Comments: PATIENT WAS FASTINGPERFORMED BY: [facility][id number] [facility] [id number] Albumin, Serum 4.2 g/dL (Normal) Range: 3.5-5.5 Alkaline Phosphatase, S 40 [iU]/L (Normal) Range: 25-150 ALT (SGPT) 15 [iU]/L (Normal) Range: 0-55 AST (SGOT) 18 [iU]/L (Normal) Range: 0-40 Bilirubin, Direct 0.13 mg/dL (Normal) Range: 0.00-0.40 Bilirubin, Total 0.4 mg/dL (Normal) Range: 0.1-1.2 Protein, Total, Serum 6.2 g/dL (Normal) Range: 6.0-8.5 98-Yvq-03125:11 Lipid Panel With LDL/HDL Comments: PATIENT WAS FASTINGPERFORMED BY: [employer] DotHca Midwest DivisionGrxqzp5289 [facility] [id number] Ratio Cholesterol, Total 142 mg/dL (Normal) Range: 100-199 HDL Cholesterol 40 mg/dL (Normal) Comments: According to ATP-III Guidelines, HDL-C >59 mg/dL is considered anegative risk factor for CHD. LDL Cholesterol Calc 81 mg/dL (Normal) Range: 0-99 LDL/HDL Ratio 2.0 {ratio_units} (Normal) Range: 0.0-3.6 Triglycerides 103 mg/dL (Normal) Range: 0-149 VLDL Cholesterol Tyrese 21 mg/dL (Normal) Range: 5-40 12-Zku-215389:30 CHEST, PA AND LATERAL (MT) Radiology Report See Note (Normal) Comments: Exam Number: [id number] PA AND LATERAL CHEST CLINICAL INDICATIONChronic cough. The heart size and contour are within normal limits. The pulmonaryvascularity is normal. No infiltrate or effusion is seen . There isno evidence of a mass or adenopathy. The bony thorax appearsunremarkable. IMPRESSIONNormal chest. Reported By: KIA COLEY M.D. 24-Utl-183546:27 METABOLIC PANEL, COMPREHENSIVE Comments: PATIENT WAS FASTINGPERFORMED BY: [facility] DotHenry [facility] Hospital6370 [facility] [id number] ([id number]) A/G Ratio 1.7 (Normal) Range: 1.1-2.5 Albumin, Serum 4.3 g/dL (Normal) Range: 3.5-5.5 Alkaline Phosphatase, S 49 [iU]/L (Normal) Range: 25-150 ALT (SGPT) 20 [iU]/L (Normal) Range: 0-55 AST (SGOT) 23 [iU]/L (Normal) Range: 0-40 Bilirubin, Total 0.6 mg/dL (Normal) Range: 0.1-1.2 BUN 17 mg/dL (Normal) Range: 5-26 BUN/Creatinine Ratio 18 (Normal) Range: 8-27 Calcium, Serum 10.1 mg/dL (Normal) Range: 8.5-10.6 Carbon Dioxide, Total 21 mmol/L (Normal) Range: 20-32 Chloride, Serum 107 mmol/L (Normal) Range: 97-108 Creatinine, Serum 0.92 mg/dL (Normal) Range: 0.76-1.27 eGFR >59 mL/min/1.73 (Normal) eGFR AfricanAmerican >59 mL/min/1.73 Comments: Note: Persistent reduction for 3 months or more in an eGFR<60 mL/min/1.73 m2 defines CKD. Patients with eGFR values>/=60 mL/min/1.73 m2 may also have CKD if evidence of persistentproteinuria is (Normal) present. Additional information may be found [email or web address]. Globulin, Total 2.6 g/dL (Normal) Range: 1.5-4.5 Glucose, Serum 85 mg/dL (Normal) Range: 65-99 Potassium, Serum 4.6 mmol/L (Normal) Range: 3.5-5.2 Protein, Total, Serum 6.9 g/dL (Normal) Range: 6.0-8.5 Sodium, Serum 145 mmol/L (Normal) Range: 135-145 44-Tln-229271:27 LIPID PANEL (14196) Comments: PATIENT WAS FASTINGPERFORMED BY: [facility][id number] [facility] [id number] Cholesterol, Total 164 mg/dL (Normal) Range: 100-199 Comment SPRCS (Normal) Comments: If initial LDL-cholesterol result is >100 mg/dL, assess forrisk factors. HDL Cholesterol 36 mg/dL (Abnormal) Comments: According to ATP-III Guidelines, HDL-C >59 mg/dL is considered anegative risk factor for CHD. LDL Cholesterol Calc 101 mg/dL (Abnormal) Range: 0-99 LDL/HDL Ratio 2.8 {ratio_units} (Normal) Range: 0.0-3.6 Triglycerides 137 mg/dL (Normal) Range: 0-149 VLDL Cholesterol Tyrese 27 mg/dL (Normal) Range: 5-40 54-Aab-240828:27 CBC WITH MANUAL DIFF (47680) Comments: PATIENT WAS FASTINGClinical Information: ADD DRAW FEE [id number] ADD J 83405 PERFORMED BY: [facility]Emvweo1945 [facility] [id number] Baso (Absolute) 0.0 {x10E3/uL} (Normal) Range: 0.0-0.2 Basos 0 % (Normal) Range: 0-3 Eos 3 % (Normal) Range: 0-7 Eos (Absolute) 0.3 {x10E3/uL} (Normal) Range: 0.0-0.4 Hematocrit 42.8 % (Normal) Range: 36.0-50.0 Hemoglobin 14.5 g/dL (Normal) Range: 12.5-17.0 Lymphs 20 % (Normal) Range: 14-46 Lymphs (Absolute) 1.9 {x10E3/uL} (Normal) Range: 0.7-4.5 MCH 29.4 pg (Normal) Range: 27.0-34.0 MCHC 33.9 g/dL (Normal) Range: 32.0-36.0 MCV 87 fL (Normal) Range: 80-98 Monocytes 8 % (Normal) Range: 4-13 Monocytes(Absolute) 0.8 {x10E3/uL} (Normal) Range: 0.1-1.0 Neutrophils 69 % (Normal) Range: 40-74 Neutrophils (Absolute) 6.5 {x10E3/uL} (Normal) Range: 1.8-7.8 Platelets 257 {x10E3/uL} (Normal) Range: 140-415 Comments: Please note reference interval change RBC 4.92 {x10E6/uL} (Normal) Range: 4.10-5.60 RDW 14.9 % (Normal) Range: 11.7-15.0 WBC 9.4 {x10E3/uL} (Normal) Range: 4.0-10.5 :37 HgA1C , Office (21335) Comments: done>Wf. HgA1C , Office 5.5 % (Normal) Range: 4.6 - 7.1 :37 Blood Glucose , Office (03030) Comments: done>Wf. Blood Glucose , Office 103 (Normal) :44 Renal Panel (10) Comments: PERFORMED BY: [employer]in6370 [facility] [id number] Albumin, Serum 4.2 g/dL (Normal) Range: 3.5-5.5 BUN 16 mg/dL (Normal) Range: 5-26 BUN/Creatinine Ratio 17 (Normal) Range: 8-27 Calcium, Serum 9.9 mg/dL (Normal) Range: 8.5-10.6 Carbon Dioxide, Total 25 mmol/L (Normal) Range: 20-32 Chloride, Serum 105 mmol/L (Normal) Range: 97-108 Creatinine, Serum 0.94 mg/dL (Normal) Range: 0.76-1.27 eGFR >59 mL/min/1.73 (Normal) eGFR AfricanAmerican >59 mL/min/1.73 Comments: Note: Persistent reduction for 3 months or more in an eGFR<60 mL/min/1.73 m2 defines CKD. Patients with eGFR values>/=60 mL/min/1.73 m2 may also have CKD if evidence of persistentproteinuria is (Normal) present. Additional information may be found [email or web address]. Glucose, Serum 106 mg/dL (Abnormal) Range: 65-99 Phosphorus, Serum 3.7 mg/dL (Normal) Range: 2.5-4.5 Potassium, Serum 4.9 mmol/L (Normal) Range: 3.5-5.2 Sodium, Serum 144 mmol/L (Normal) Range: 135-145 15-Vgj-68123:22 Renal function Panel (00110) Comments: PATIENT NOT FASTINGClinical Information: ADD DRAW FEE [id number] ADD J 62521 PERFORMED BY: [employer] Hockeylin6370 [facility] [id number] Albumin, Serum 4.4 g/dL (Normal) Range: 3.5-5.5 BUN 16 mg/dL (Normal) Range: 5-26 BUN/Creatinine Ratio 16 (Normal) Range: 8-27 Calcium, Serum 10.1 mg/dL (Normal) Range: 8.5-10.6 Carbon Dioxide, Total 24 mmol/L (Normal) Range: 20-32 Chloride, Serum 103 mmol/L (Normal) Range: 97-108 Creatinine, Serum 1.01 mg/dL (Normal) Range: 0.76-1.27 eGFR >59 mL/min/1.73 (Normal) eGFR AfricanAmerican >59 mL/min/1.73 Comments: Note: Persistent reduction for 3 months or more in an eGFR<60 mL/min/1.73 m2 defines CKD. Patients with eGFR values>/=60 mL/min/1.73 m2 may also have CKD if evidence of persistentproteinuria is (Normal) present. Additional information may be found [email or web address]. Glucose, Serum 109 mg/dL (Abnormal) Range: 65-99 Phosphorus, Serum 2.9 mg/dL (Normal) Range: 2.5-4.5 Potassium, Serum 5.3 mmol/L (Abnormal) Range: 3.5-5.2 Sodium, Serum 142 mmol/L (Normal) Range: 135-145 :03 HgA1C , Office (79350) HgA1C , Office 5.6 % (Normal) Range: 4.6 - 7.1 :03 Blood Glucose , Office (71242) Blood Glucose , Office 96 (Normal) 8-Sqx-520682:43 Hemoglobin Glyclated (HGB A1C) Comments: PATIENT WAS FASTINGPERFORMED BY: [facility]otechThe [facility] [id number] ([id number]) Hemoglobin A1c 5.8 % (Normal) Comments: Diabetic Adult <7.0 Healthy Adult 4.8 - 5.9 (DCCT/NGSP) [place] Diabete s Association's Summary of Glycemic Recommendations for Adults with Diabetes: Hemoglobin A1c <7.0%. More stringent glycemic goals (A1c <6.0%) may furth er reduce complications at the cost of increased risk of hypoglycemia. 1-Iwu-120028:43 METABOLIC PANEL, COMPREHENSIVE Comments: PATIENT WAS FASTINGClinical Information: ADD DRAW FEE [id number] ADD J 67621 PERFORMED BY: [facility]illion EntertainmentNov[facility] [id number] (20832) A/G Ratio 1.6 (Normal) Range: 1.1-2.5 Albumin, Serum 4.1 g/dL (Normal) Range: 3.5-5.5 Alkaline Phosphatase, S 53 [iU]/L (Normal) Range: 25-150 ALT (SGPT) 31 [iU]/L (Normal) Range: 0-55 AST (SGOT) 27 [iU]/L (Normal) Range: 0-40 Bilirubin, Total 0.4 mg/dL (Normal) Range: 0.1-1.2 BUN 18 mg/dL (Normal) Range: 5-26 BUN/Creatinine Ratio 20 (Normal) Range: 8-27 Calcium, Serum 9.9 mg/dL (Normal) Range: 8.5-10.6 Carbon Dioxide, Total 27 mmol/L (Normal) Range: 20-32 Chloride, Serum 103 mmol/L (Normal) Range: 97-108 Creatinine, Serum 0.91 mg/dL (Normal) Range: 0.76-1.27 Globulin, Total 2.5 g/dL (Normal) Range: 1.5-4.5 Glom Filt Rate, Est >59 mL/min/1.73 (Normal) Glucose, Serum 101 mg/dL (Abnormal) Range: 65-99 If -Mauritian >59 mL/min/1.73 Comments: Note: Persistent reduction for 3 months or more in an eGFR<60 mL/min/1.73 m2 defines CKD. Patients with eGFR values>/=60 mL/min/1.73 m2 may also have CKD if evidence of persistentproteinur ia is (Normal) present. Additional information may be found [email or web address]. Potassium, Serum 5.0 mmol/L (Normal) Range: 3.5-5.2 Protein, Total, Serum 6.6 g/dL (Normal) Range: 6.0-8.5 Sodium, Serum 142 mmol/L (Normal) Range: 135-145 6-Zbr-198235:43 LIPID PANEL (55934) Comments: PATIENT WAS FASTINGPERFORMED BY: [facility][id number] [facility] [id number] Cholesterol, Total 170 mg/dL (Normal) Range: 100-199 Comment SPRCS (Normal) Comments: If initial LDL-cholesterol result is >100 mg/dL, assess forrisk factors. HDL Cholesterol 34 mg/dL (Abnormal) Comments: According to ATP-III Guidelines, HDL-C >59 mg/dL is considered anegative risk factor for CHD. LDL Cholesterol Calc 105 mg/dL (Abnormal) Range: 0-99 LDL/HDL Ratio 3.1 {ratio_units} (Normal) Range: 0.0-3.6 Triglycerides 157 mg/dL (Abnormal) Range: 0-149 VLDL Cholesterol Tyrese 31 mg/dL (Normal) Range: 5-40 36-Cqm-603396:07 CBCD,SMEAR DIFF CELLS COUNTED 100 (Normal) HCT 41.2 % (Normal) Range: 40-54 HGB 13.9 g/dL (Abnormal) Range: 14.0-18.0 LYMPH 22 % (Normal) Range: 19-41 MCH 29.0 pg (Normal) Range: 27.0-32.0 MCHC 33.8 g/dL (Normal) Range: 32-36 MCV 85.9 fL (Normal) Range: 80-94 MONOCYTE 3 % (Normal) Range: 0-10 PLT 306 K/mm3 (Normal) Range: 150-450 PLT EST SeeNote (Normal) Comments: Result: ADEQUATE RBC 4.80 {M/mm3} (Normal) Range: 4.6-6.2 RDW 13.7 % (Normal) Range: 11.6-14.6 RED CELL MORPH SeeNote {NORMAL} (Normal) Comments: Result: NORM C+C SEGS 75 % (Abnormal) Range: 47-70 WBC 9.4 K/mm3 (Normal) Range: 4.4-11.0 74-Csd-985657:07 COMP METABOLIC A/G 1.2 {RATIO} (Normal) Range: 0.9-2.4 ALB 3.7 g/dL (Normal) Range: 3.4-5.0 ALK P 63 U/L (Normal) Range: 50-136 ALT 42 U/L (Normal) Range: 30-65 AST 20 U/L (Normal) Range: 15-37 BUN 20 mg/dL (Abnormal) Range: 7-18 BUN/CRE 20.0 {RATIO} (Normal) Range: 10-20 CA 9.2 mg/dL (Normal) Range: 8.5-10.1 CL 104 mmol/L (Normal) Range: 98-107 CO2 32.2 mmol/L (Abnormal) Range: 21.0-32.0 CREAT,SERUM 1.0 mg/dL (Normal) Range: 0.8-1.3 GAP 5 (Normal) Range: 5-15 GLOB 3.2 g/dL (Normal) Range: 2.7-4.2 GLU 95 mg/dL (Normal) Range: 70-110 K 4.3 mmol/L (Normal) Range: 3.5-5.1 NA 141 mmol/L (Normal) Range: 136-145 T BILI 0.40 mg/dL (Normal) Range: 0.00-1.00 T PROT 6.9 g/dL (Normal) Range: 6.4-8.2 :07 LIPID CHOL 154 mg/dL (Normal) Comments: <200 mg/dL Desirable 200-240 mg/dL Borderline >240 mg/dL High Risk HDL 33 mg/dL (Abnormal) Comments: Reference Range HDL <40 mg/dL Low HDL Cholesterol HDL >or= 60 mg/dL High HDL Cholesterol LDL 85 mg/dL (Normal) Range: 0-130 TRIG 181 mg/dL (Normal) Comments: Serum Triglycerides Reference Interval Normal <150 mg/dL Borderline high 150 - 199 mg/dL High 200 - 499 mg/dL Very High > or = 500 mg/dL VLDL 36 mg/dL (Normal) Range: 5-40 :07 PSA,TOT SCREEN 0.79 ng/mL (Normal) Range: 0.00-4.00 Comments: This test was performed using the TPSA method for the[employer] chemistry system.Values obtained with different assay methods cannot be usedinterchangably.When changing PSA assays in the course of monito ring apatient, additional sequential testing should be carriedout to confirm baseline values. 54-Bfy-023497:31 COMP METABOLIC A/G 1.3 {RATIO} (Normal) Range: 0.9-2.4 ALB 3.7 g/dL (Normal) Range: 3.4-5.0 ALK P 59 U/L (Normal) Range: 50-136 ALT 37 [iU]/L (Normal) Range: 30-65 AST 18 U/L (Normal) Range: 15-37 BUN 22 mg/dL (Abnormal) Range: 7-18 BUN/CRE 20.0 {RATIO} (Normal) Range: 10-20 CA 9.0 mg/dL (Normal) Range: 8.5-10.1 CL 106 mmol/L (Normal) Range: 98-107 CO2 27.0 mmol/L (Normal) Range: 21.0-32.0 Comments: Please Note Reference Interval Change CREAT,SERUM 1.1 mg/dL (Normal) Range: 0.8-1.3 GAP 8 (Normal) Range: 5-15 GLOB 2.9 g/dL (Normal) Range: 2.7-4.2 Comments: Please Note Reference Interval Change GLU 99 mg/dL (Normal) Range: 70-110 K 3.7 mmol/L (Normal) Range: 3.5-5.1 NA 141 mmol/L (Normal) Range: 136-145 T BILI 0.56 mg/dL (Normal) Range: 0.00-1.00 T PROT 6.6 g/dL (Normal) Range: 6.4-8.2 :31 LIPID CHOL 149 mg/dL (Normal) Comments: <200 mg/dL Desirable 200-240 mg/dL Borderline >240 mg/dL High Risk HDL 31 mg/dL (Abnormal) Comments: Reference Range HDL <40 mg/dL Low HDL Cholesterol HDL >or= 60 mg/dL High HDL Cholesterol LDL 95 mg/dL (Normal) Range: 0-130 TRIG 117 mg/dL (Normal) Comments: Serum Triglycerides Reference Interval Normal <150 mg/dL Borderline high 150 - 199 mg/dL High 200 - 499 mg/dL Very High > or = 500 mg/dL VLDL 23 mg/dL (Normal) Range: :58 LIPID CHOL 148 mg/dL (Normal) Comments: <200 mg/dL Desirable 200-240 mg/dL Borderline >240 mg/dL High Risk HDL 29 mg/dL (Abnormal) Comments: Reference Range HDL <40 mg/dL Low HDL Cholesterol HDL >or= 60 mg/dL High HDL Cholesterol LDL 51 mg/dL (Normal) Range: 0-130 TRIG 341 mg/dL (Abnormal) Comments: Serum Triglycerides Reference Interval Normal <150 mg/dL Borderline high 150 - 199 mg/dL High 200 - 499 mg/dL Very High > or = 500 mg/dL VLDL 68 mg/dL (Abnormal) Range: :58 LIVER ALB 3.3 g/dL (Abnormal) Range: 3.4-5.0 ALK P 68 U/L (Normal) Range: 50-136 ALT 39 [iU]/L (Normal) Range: 30-65 AST 13 U/L (Abnormal) Range: 15-37 D BILI 0.03 mg/dL (Normal) Range: 0.00-0.30 T BILI 0.33 mg/dL (Normal) Range: 0.00-1.00 T PROT 6.5 g/dL (Normal) Range: 6.4-8.2 :58 PSA,TOT SCREEN 0.63 ng/mL (Normal) Range: 0.00-4.00 Comments: This test was performed using the TPSA method for the[employer] chemistry system.Values obtained with different assay methods cannot be usedinterchangably.When changing PSA assays in the course of monito ring apatient, additionaly sequential testing should be carriedout to confirm baseline values. :18 Blood Glucose , Office (79190) Blood Glucose , Office 124 (Normal) :18 HgA1C , Office (42263) HgA1C , Office 5.3 % (Normal) Range: 4.6 - 7.1 Plan of Care Name Dates Details Instructions BMI 40.0-44.9, adult : Eprescribed prescriptions (G8553) Indication: BMI 40.0-44.9, adult Vitamin D deficiency, unspecified : Follow up in 3 months Indication: Vitamin D deficiency, unspecified History of diabetes mellitus : Eprescribed prescriptions (G8553) Indication: History of diabetes mellitus Chin laceration, sequela : Flu (Influenza) *: flu Indication: Chin laceration, sequela Chin laceration, sequela : Eprescribed prescriptions (G8553) Indication: Chin laceration, sequela Depression, controlled : Anxiety: emotional health Indication: Depression, controlled Hypercholesterolemia : Eprescribed prescriptions (G8553) Indication: Hypercholesterolemia Diabetes mellitus type II, controlled, with no complications : Eprescribed prescriptions (G8553) Indication: Diabetes mellitus type II, controlled, with no complications Diabetes mellitus type II, controlled, with no complications : Eprescribed prescriptions (G8553) Indication: Diabetes mellitus type II, controlled, with no complications Bronchitis : *URI Treatment Indication: Bronchitis Bronchitis : *URI Symptoms Indication: Bronchitis Gout, renal disease : Flu Shots (Influenza Vaccine): prevention Indication: Gout, renal disease Allergic rhinitis due to other allergen : ALLERGY CONTROL Indication: Allergic rhinitis due to other allergen Allergic rhinitis due to other allergen : ALLERGY PROOFING Indication: Allergic rhinitis due to other allergen Allergic rhinitis due to other allergen : URI Symptoms Indication: Allergic rhinitis due to other allergen Bronchitis : *URI Treatment Indication: Bronchitis Bronchitis : Antibiotic Usage Education - Female Indication: Bronchitis Bronchitis : URI Symptoms Indication: Bronchitis Neoplasm of uncertain behavior of skin : excisional Biopsy with Epi Indication: Neoplasm of uncertain behavior of skin Bronchitis : Antibiotic Usage Education - Female Indication: Bronchitis Bronchitis : URI Symptoms Indication: Bronchitis Hypercholesterolemia : FOLLOW UP IN 6 MONTHS Indication: Hypercholesterolemia Planned Observations Metabolic Panel, Basic (98298)Indication: Hypertension On: 60-Swm-15846:02 Request Comments: re check in 2 weeks HGB A1C (84526)Indication: Impaired fasting glucose On: 88-Vqe-458191:39 Request Comments: check prior to June apt Renal function Panel (72786)Indication: Cardiomyopathy, unspecified type On: 8-Rpz-754001:52 Request CALCIFEDIOL (05136)Indication: Hypertension On: 74-Bcp-576525:21 Request TSH (THYROID STIMULATING HORMONE) (02853)Indication: Hypertension On: 24-Twq-983045:21 Request LIPID PANEL (96139)Indication: Hypertension On: 09-Dgu-815179:20 Request METABOLIC PANEL, COMPREHENSIVE (86395)Indication: Hypertension On: 23-Zuh-572118:20 Request CBC, PLATELETS & AUT DIFF (54562)Indication: Hypertension On: 34-Tec-323141:20 Request Hemoglobin Glyclated (HGB A1C) (84531)Indication: Diabetes mellitus type II, controlled, with no complications On: 02-Jul-2015 Request Comments: now and every in three months (approximately) IRON (31786)Indication: Abnormal blood finding On: 51-Iiu-37904:25 Request PSA (PROSTATE SPECIFIC ANTIGEN) (V76.44)Indication: Encounter for health maintenance examination with abnormal findings On: 48-Zif-549896:48 Request Ferritin (26849)Indication: Abnormal blood chemistry On: 72-Bpt-981830:48 Request TESTOSTERONE FREE (02279)Indication: Testosterone deficiency On: 07-Fku-215506:48 Request Uric Acid Blood (42366)Indication: Gout, renal disease On: 00-Ymt-701339:48 Request MICROALBUMIN: CREATININE RATIO (55964) AND (66128)Indication: Diabetes mellitus type II, controlled, with no complications On: :48 Request METABOLIC PANEL, COMPREHENSIVE (14009)Indication: Diabetes mellitus type II, controlled, with no complications On: 86-Nto-605491:48 Request LIPID PANEL (14973)Indication: Diabetes mellitus type II, controlled, with no complications On: :48 Request CBC WITH MANUAL DIFF (83743)Indication: Diabetes mellitus type II, controlled, with no complications On: :48 Request LIPID PANEL (71111)Indication: Hypercholesterolemia On: :23 Request Ferritin (29204)Indication: Abnormal blood chemistry On: :38 Request TESTOSTERONE FREE (25928)Indication: Testosterone deficiency On: :37 Request CALCIFIDIOL (67998) VIT D 25Indication: Vitamin D deficiency, unspecified On: :37 Request URINALYSIS, W/ MICRO (23868)Indication: Hypertension On: :37 Request METABOLIC PANEL, COMPREHENSIVE (54416)Indication: Hypertension On: :37 Request LIPID PANEL (37880)Indication: Hypertension On: :37 Request CBC WITH MANUAL DIFF (59806)Indication: Hypertension On: :37 Request Methylmalonic acid, serum 19285Ljccxyuxwx: Fatigue On: :20 Request Renal function Panel (73285)Indication: Hyperpotassemia On: 64-Vsg-742508:05 Request Metabolic Panel, Comprehensive (47070)Indication: Hypercholesterolemia On: :26 Request Lipid Panel (94169)Indication: Hypercholesterolemia On: :26 Request Comments: in six months (approximately) METABOLIC PANEL, COMPREHENSIVE (10582)Indication: Hypertension On: :29 Request LIPID PANEL (53771)Indication: Hypertension On: :29 Request CBC WITH MANUAL DIFF (75807)Indication: Hypertension On: :29 Request Comments: in six months (approximately) Metabolic Panel, Comprehensive (80909)Indication: Hypercholesterolemia On: :07 Request Lipid Panel (15404)Indication: Hypercholesterolemia On: :07 Request Comments: in three months PSA (PROSTATE SPECIFIC ANTIGEN) (07090)Indication: Encounter for health maintenance examination with abnormal findings On: :09 Request HEPATIC FUNCTION PANEL (21520)Indication: Hypercholesterolemia On: :09 Request LIPID PANEL (42028)Indication: Hypercholesterolemia On: :09 Request Planned Procedures TDAP VACCINE >7 IM (61676)By: On: 31-Mar-2018 Intent Samina Gomez MD, MD, Comments: lot: [id number]: 04/16/20ite/route: L del/IMamt: 0.5mLVIS signed when applicableOLU Howe Holter Monitor 24 hrsBy: Juma On: 09-Dec-2017 Intent Samina SILVA MD, Dana M Echo CompleteBy: Juma SILVA, On: 07-Nov-2017 Intent Samina Hernandez MD Echo CompleteBy: Juma SILVA, On: 28-Jan-2017 Intent Samina Hernandez MD Comments: February 12 at 1pm go to ground floor registration Echo CompleteBy: Juma SILVA, On: 28-Jan-2017 Intent Samina Hernandez MD IMMUNIZ ADMNIN, 1 VAC, On: 05-Aug-2015 Intent SNGL/COMBO (03097)By: Samina Gomez MD, MD, Dana M FLU VAC, SPLIT, >3 YEARS, On: 05-Aug-2015 Intent INTRAMUSC (62337)By: Samina Gomez MD, MD, Dana M Nuclear Medicine - OtherBy: On: 05-Aug-2015 Intent Samina Gomez MD, MD, Comments: heptospleen scan Samina Edwards ESOPHOGRAM ([id number])By: Juma On: 08-Dec-2014 Intent Samina SILVA MD, Dana M Comments: 12mm IMMUNIZ ADMNIN, 1 VAC, On: 02-Sep-2014 Intent SNGL/COMBO ([id number])By: Samina Gomez MD, MD, Dana M FLU VAC, SPLIT, >3 YEARS, On: 02-Sep-2014 Intent INTRAMUSC ([id number])By: Samina Gomez MD, MD, Dana M Nuclear Stress Test/Stress On: 03-May-2014 Intent SPECT/TreadmillBy: Samina Gomez MD, MD, Dana M CT - Cardiac CTABy: Juma SILVA, On: 30-Apr-2014 Intent Samina Hernandez MD EKG ([id number])By: Samina Gomez MD On: 29-Apr-2014 Intent Samina Johnson MD Comments: see scanned document of test done to see results reviewed today with patient Nuclear Stress Test/Stress On: 29-Apr-2014 Intent SPECT/AdenosineBy: Samina Gomez MD, MD, Dana M Aerosol Treatment ([id number])By: On: 15-Jan-2014 Intent Samina Gomez MD, MD, Dana M Eprescribed prescriptions On: 15-Jan-2014 Intent (G8553)By: Samina Gomez MD, MD, Dana M FLU VAC, SPLIT, >3 YEARS, On: 06-Nov-2013 Intent INTRAMUSC ([id number])By: Ousmane, Comments: Lot:[id number]:0.5mLRoute:IMSite:L DltdGiven By:RADHA signed Estephanie IMMUNIZ ADMNIN, 1 VAC, On: 06-Nov-2013 Intent SNGL/COMBO ([id number])By: Estephanie Romeo Eprescribed prescriptions On: 16-Jul-2013 Intent ([id number])By: Savanna Ramírez LPN Aerosol Treatment ([id number])By: On: 08-Jan-2013 Intent Samina Gomez MD, MD, Dana M Eprescribed prescriptions On: 08-Jan-2013 Intent (G8553)By: Savanna Ramírez LPN IMMUNIZ ADMNIN, 1 VAC, On: 21-Aug-2012 Intent SNGL/COMBO ([id number])By: Darrell ALMANZA, Comments: Lot #[id number]-[id number] dltd, IMDose prefilled syringegiven by carlita Watson FLU VAC, SPLIT, >3 YEARS, On: 21-Aug-2012 Intent INTRAMUSC ([id number])By: Savanna Ramírez LPN IMMUNIZATION ADMIN ([id number])By: On: 06-Sep-2011 Intent Juma SILVA, Samina Gomez MD, Samina Edwards FLU VACCINE H1N1 ([id number])By: On: 06-Sep-2011 Intent Juma SILVA, Samina Hernandez MD FLU VAC, SPLIT, >3 YEARS, On: 06-Nov-2010 Intent INTRAMUSC ([id number])By: Juma SILVA, Comments: Lot #[id number]-[id number] arm, IMDose0.5mlgiven by: Samina Hernandez MD IMMUNIZ ADMNIN, 1 VAC, On: 06-Nov-2010 Intent SNGL/COMBO ([id number])By: Samina Gomez MD, MD, Dana M EKG ([id number])By: Samina Gomez MD On: 06-Nov-2010 Intent Samina Johnson MD Spirometry ([id number])By: Juma On: 04-Nov-2009 Intent Samina SILVA MD, Dana M Pulse Oximetry ([id number])By: On: 04-Nov-2009 Intent MIKKI De La Cruz IMMUNIZ ADMNIN, 1 VAC, On: 08-Sep-2009 Intent SNGL/COMBO ([id number])By: Lisy Otero RN FLU VAC, SPLIT, >3 YEARS, On: 08-Sep-2009 Intent INTRAMUSC ([id number])By: Shanna BARNARD, Comments: Lot #: [id number] date: mount given: 0.5 mlRoute: IMSite given: left deltoidGiven by: ARCHIE Mcmillan Radiology - ChestBy: Juma SILVA, On: 07-Jul-2009 Intent Samina Hernandez MD Pulse Oximetry ([id number])By: On: 07-Jul-2009 Intent MIKKI De LaC ruz Spirometry ([id number])By: Garrett On: 31-Mar-2009 Intent Mamie BUI Comments: done BC Inhaler Demonstration On: 31-Mar-2009 Intent ([id number])By: Mamie Tucker CNP Comments: done BCdemonstrates understanding, inhaler demo handout given to supplement instructions Pulse Oximetry ([id number])By: Garrett On: 31-Mar-2009 Intent Mamie BUI Comments: done BC Aerosol Treatment ([id number])By: On: 31-Mar-2009 Intent Mamie Tucker CNP Comments: done BC EKG ([id number])By: Samina Gomez MD On: 29-Oct-2008 Intent Samina Johnson MD EKG ([id number])By: Samina Gomez MD On: 09-Oct-2006 Intent Samina Johnson MD Instructions Name Dates Details Depression, controlled : How to access health information online Indication: Depression, controlled Depression, controlled : How to access health information online - Detail Indication: Depression, controlled Depression, controlled : Patient Instructions Indication: Depression, controlled Encounter for health maintenance examination with abnormal findings : How to access health information online Indication: Encounter for health maintenance examination with abnormal findings Encounter for health maintenance examination with abnormal findings : How to access health information online - Detail Indication: Encounter for health maintenance examination with abnormal findings Encounter for health maintenance examination with abnormal findings : Patient Instructions Indication: Encounter for health maintenance examination with abnormal findings Tobacco use : How to access health information online Indication: Tobacco use Tobacco use : How to access health information online - Detail Indication: Tobacco use Tobacco use : Patient Instructions Indication: Tobacco use BMI 40.0-44.9, adult : How to access health information online Indication: BMI 40.0-44.9, adult BMI 40.0-44.9, adult : How to access health information online - Detail Indication: BMI 40.0-44.9, adult BMI 40.0-44.9, adult : Patient Instructions Indication: BMI 40.0-44.9, adult Encounter for health maintenance examination with abnormal findings : How to access health information online Indication: Encounter for health maintenance examination with abnormal findings Encounter for health maintenance examination with abnormal findings : How to access health information online - Detail Indication: Encounter for health maintenance examination with abnormal findings Encounter for health maintenance examination with abnormal findings : Patient Instructions Indication: Encounter for health maintenance examination with abnormal findings History of diabetes mellitus : How to access health information online Indication: History of diabetes mellitus History of diabetes mellitus : How to access health information online - Detail Indication: History of diabetes mellitus History of diabetes mellitus : Patient Instructions Indication: History of diabetes mellitus Depression, controlled : How to access health information online Indication: Depression, controlled Depression, controlled : How to access health information online - Detail Indication: Depression, controlled Depression, controlled : Patient Instructions Indication: Depression, controlled History of obesity : Patient Instructions Indication: History of obesity Chin laceration, sequela : How to access health information online Indication: Chin laceration, sequela Chin laceration, sequela : How to access health information online - Detail Indication: Chin laceration, sequela Chin laceration, sequela : Patient Instructions Indication: Chin laceration, sequela Depression, controlled : How to access health information online Indication: Depression, controlled Depression, controlled : How to access health information online - Detail Indication: Depression, controlled Depression, controlled : Patient Instructions Indication: Depression, controlled Hypercholesterolemia : How to access health information online Indication: Hypercholesterolemia Hypercholesterolemia : How to access health information online - Detail Indication: Hypercholesterolemia Hypercholesterolemia : Patient Instructions Indication: Hypercholesterolemia Diabetes mellitus type II, controlled, with no complications : How to access health information online Indication: Diabetes mellitus type II, controlled, with no complications Diabetes mellitus type II, controlled, with no complications : How to access health information online - Detail Indication: Diabetes mellitus type II, controlled, with no complications Diabetes mellitus type II, controlled, with no complications : Patient Instructions Indication: Diabetes mellitus type II, controlled, with no complications Acute exacerbation of COPD with asthma : Patient Instructions Indication: Acute exacerbation of COPD with asthma Diabetes mellitus type II, controlled, with no complications : Patient Instructions Indication: Diabetes mellitus type II, controlled, with no complications Diabetes mellitus type II, controlled, with no complications : Patient Instructions Indication: Diabetes mellitus type II, controlled, with no complications Need for prophylactic vaccination and inoculation against influenza : Patient Instructions Indication: Need for prophylactic vaccination and inoculation against influenza Encounters Lab Order On: 11-Aug-2018 9:01 Encounter Diagnosis: Hypertension End: 11-Aug-2018 9:02 [facility] Phone Encounter On: 09-Aug-2018 16:08 Encounter Diagnosis: Unspecified Diagnosis End: 10-Aug-2018 14:29 [facility] Office Visit On: 09-Aug-2018 14:50 Encounter Diagnosis: Unspecified Diagnosis End: 09-Aug-2018 14:56 [facility] Office Visit On: 28-Jul-2018 9:37 Encounter Diagnosis: BMI 40.0-44.9, adult, Depression, controlled, Atrial flutter, Cardiomyopathy, unspecified type, Impaired fasting glucose End: 28-Jul-2018 10:13 [facility] Lab Order On: 06-Jun-2018 12:38 Encounter Diagnosis: Impaired fasting glucose End: 06-Jun-2018 12:40 [facility] Office Visit On: 31-Mar-2018 9:09 Encounter Reason: Physical male exam - Last seen between 3-6 months ago. General health: does not feel well and has decreased energy level. The patient's appetite is normal. Nutrition: normal/adequate. Exercises 0 days p End: 01-Apr-2018 15:31 er week. Sleeps on average 10 hours per night. Normal bowel and bladder habits. Safety measures include appropriate use of safety belts and home smoke detectors. Current emotional problems include anxie ty and depression. The patient's libido is normal. Preventative measures done by patient are screening, colonoscopy (never has had one) and PSA (18).Encounter Diagnosis: Tobacco use, Chronic GERD, Bipolar 1 disorder, depressed, mild, Panic disorder/agoraphobia, agoraphobic avoidnc/panc attck full remssn, Hemochromatosis carrier, Depression, controlled, Alcohol abuse, in remission, Dysphagia, Vitamin D deficiency, unspecified, Glaucoma, Osteoarthritis, Erectile dysfunction, Testosterone deficiency, Cardiomyopathy, unspecified type, Atrial flutter, Hypercholesterolemia, Hypertension, Gout, renal disease, Fatty liver, Family history of cancer, Palpitation, Impaired fasting glucose, Encounter for health maintenance examination with abnormal findings, Screening PSA (prostate specific antigen), Acute bronchitis, bacterial, Need for Tdap vaccination (Renamed from Need for [id number] (Tdap) vaccine, adult/a dolescent) [facility] Lab Order On: 12-Mar-2018 16:35 Encounter Diagnosis: Hypertension End: 12-Mar-2018 16:39 [facility] Office Visit On: 24-Dec-2017 7:32 Encounter Diagnosis: Sinusitis, acute End: 24-Dec-2017 7:34 [facility] Office Visit On: 09-Dec-2017 12:03 Encounter Reason: Follow up for chronic medical issues - The patient feels well with minor complaints and has decreased energy level. Patient has been compliant with instructions. Current medication use: no side effects, End: 09-Dec-2017 13:08 compliant with dosing regimen and considered effective by patient. Patient sleeps 8 hours per night. Impact of disease: emotional impact-moderate. Nutrition: inadequate caloric intake. The medical issu es the patient is following up for include blood sugar issues, cardiac issues, depression, gastric reflux, high blood pressure, high cholesterol, osteoarthritis and other (glaucoma, testoterone def., vitamin d def).Encounter Diagnosis: BMI 40.0-44.9, adult, Tobacco use, Glaucoma, Vitamin D deficiency, unspecified, Hypertension, Dysphagia, Testosterone deficiency, Erectile dysfunction, Osteoarthritis, Panic disorder/agoraphobia, agoraphobic avoidnc/panc attck full remssn, Bipolar 1 disorder, depressed, mild, Weight gain, Chronic GERD, Alcohol abuse, in remission, Depression, controlled, Hemochromatosis carrier, History of diabetes mellitus, Hypercholesterolemia, Cardiomyopathy, unspecified type, Abnormal echocardiogram, Fatty liver, Gout, renal disease, Atrial flutter, Family history of cancer, Impaired fasting glucose, Poison david, Current nonsmoker (Renamed from Current non-smoker), Need for hepatitis C screening test, Palpitation, Hendrix's palsy [facility] Phone Encounter On: 07-Nov-2017 12:29 Encounter Diagnosis: Abnormal echocardiogram End: 07-Nov-2017 12:32 [facility] Phone Encounter On: 02-Sep-2017 18:05 Encounter Diagnosis: Unspecified Diagnosis End: 02-Sep-2017 18:07 [facility] Office Visit On: 23-Jul-2017 10:37 Encounter Reason: Follow up for chronic medical issues - The patient feels well with minor complaints and has decreased energy level. Patient has been compliant with instructions. Current medication use: no side effects, End: 23-Jul-2017 11:40 compliant with dosing regimen and considered effective by patient. Patient sleeps 7 hours per night. Impact of disease: emotional impact-mild. Nutrition: balanced diet and supplemental vitamins. The hi dical issues the patient is following up for include blood sugar issues, cardiac issues, depression, gastric reflux, high blood pressure, high cholesterol, osteoarthritis and other (obesity, gout, eleva lexa LFT's, vitmain d def., hx. alcohol abuse, test. def.).Encounter Diagnosis: BMI 40.0-44.9, adult, Tobacco use, Weight gain, Poison david, Depression, controlled, Bipolar 1 disorder, depressed, mild, Panic disorder/agoraphobia, agoraphobic avoidnc/panc attck full remssn, Alcohol abuse, in remission, Chronic GERD, Osteoarthritis, Hypertension, Vitamin D deficiency, unspecified, Glaucoma, Erectile dysfunction, Testosterone deficiency, Dysphagia, Gout, renal disease, Fatty liver, Atrial flutter, Impaired fasting glucose, Hypercholesterolemia, Family history of cancer, History of diabetes mellitus, Cardiomyopathy, unspecified type, Hemochromatosis carrier, Need for hepatitis C screening test, BMI 30.0-30.9,adult, BMI 35.0-35.9,adult, Current nonsmoker (Renamed from Current non-smoker), Diabetes mellitus type II, controlled, with no complications [facility] Lab Order On: 17-Jul-2017 9:14 Encounter Diagnosis: Impaired fasting glucose End: 17-Jul-2017 9:15 [facility] Lab Order On: 17-Jul-2017 9:03 Encounter Diagnosis: Fatty liver, Hypercholesterolemia End: 17-Jul-2017 9:05 [facility] Phone Encounter On: 04-Mar-2017 9:47 Encounter Diagnosis: Atrial flutter End: 04-Mar-2017 9:56 [facility] Office Visit On: 18-Feb-2017 8:38 Encounter Diagnosis: Encounter for health maintenance examination with abnormal findings, Chronic GERD, Hypercholesterolemia, Alcohol abuse, in remission, Fatty liver, Vitamin D deficiency, unspecified, Bipolar 1 disorder, depressed, mild, End: 19-Feb-2017 16:21 Tobacco use, Osteoarthritis, Glaucoma, Testosterone deficiency, Erectile dysfunction, Depression, controlled, Hypertension, Acute electrocardiogram changes, Gout, renal disease, Hemochromatosis carrier, Weight gain, Dysphagia, History of diabetes mellitus, Atrial flutter, Current nonsmoker (Renamed from Current non-smoker), BMI 35.0-35.9,adult, Family history of cancer, Obesity (278.00), Cardiomyopathy, unspecified type [facility] Phone Encounter On: 28-Jan-2017 11:35 Encounter Diagnosis: Acute electrocardiogram changes End: 28-Jan-2017 11:38 [facility] Historical Summary On: 28-Jan-2017 10:12 Encounter Diagnosis: Acute electrocardiogram changes End: 28-Jan-2017 10:16 [facility] Lab Order On: 25-Jan-2017 14:44 Encounter Diagnosis: Need for hepatitis C screening test, Screening PSA (prostate specific antigen) End: 25-Jan-2017 14:47 [facility] Office Visit On: 17-Jul-2016 9:09 Encounter Reason: Follow up tests - Date: (07.10.16)., [ADDITIONAL REASON] Follow up for chronic medical issues - The patient feels well with minor complai End: 17-Jul-2016 23:39 nts and has decreased energy level. Patient has been compliant with instructions. Current medication use: no side effects, compliant with dosing regimen and considered effective by patient. Patient slee ps 7 (broken) hours per night. Impact of disease: emotional impact-moderate. Nutrition: balanced diet and supplemental vitamins. The medical issues the patient is following up for include cardiac issues , depression (anxiety ), high blood pressure, high cholesterol, osteoarthritis, osteoporosis/osteopenia and other (hx. of alcohol abuse, hx. of obesity, vitamin d def., testosterone def., gout, fatty liver, glaucoma ). Encounter Diagnosis: History of diabetes mellitus, BMI 30.0-30.9,adult, Tobacco use, History of obesity, Hemochromatosis carrier, Anxiety, Hypertension, Erectile dysfunction, Testosterone deficiency, Alcohol abuse, in remission, Atrial flutter, Hypercholesterolemia, Gout, renal disease, Chronic GERD, Bipolar 1 disorder, depressed, mild, Vitamin D deficiency, unspecified, Fatty liver, Dysphagia, Weight gain [facility] Phone Encounter On: 03-Feb-2016 10:48 Encounter Diagnosis: Screening PSA (prostate specific antigen) End: 03-Feb-2016 10:49 [facility] Office Visit On: 03-Feb-2016 8:05 Encounter Reason: Follow up for chronic medical issues - The patient feels well with minor complaints and has decreased energy level. Patient has been compliant with instructions. Current medication use: no side effects, End: 03-Feb-2016 8:52 compliant with dosing regimen and considered effective by patient. Patient sleeps 7 hours per night. Impact of disease: emotional impact-moderate. Nutrition: balanced diet and supplemental vitamins. Th e medical issues the patient is following up for include cardiac issues, depression (anxiety ), high blood pressure, high cholesterol, osteoarthritis, osteoporosis/osteopenia and other (hx. of alcohol a buse, hx. of obesity, vitamin d def., testosterone def., gout, fatty liver, glaucoma ).Encounter Diagnosis: Anxiety, Current nonsmoker (Renamed from Current non- smoker), Vitamin D deficiency, unspecified, Osteoarthritis, Bipolar 1 disorder, depressed, mild, Dysphagia, Chronic GERD, Gout, renal disease, History of diabetes mellitus, Hypercholesterolemia, Atrial flutter, Fatty liver, Alcohol abuse, in remission, Hemochromatosis carrier, History of obesity, Glaucoma, Testosterone deficiency, Hypertension, Erectile dysfunction [facility] Office Visit On: 04-Nov-2015 8:25 Encounter Reason: Follow up for chronic medical issues - The patient feels well with no complaints and has good energy level. Patient has been compliant with instructions. Current medication use: no side effects, complia End: 04-Nov-2015 9:26 nt with dosing regimen and considered effective by patient. Patient sleeps 7 hours per night. Impact of disease: emotional impact-mild. Nutrition: balanced diet and supplemental vitamins. The medical is sues the patient is following up for include blood sugar issues, cardiac issues, depression (anxiety ), gastric reflux, high blood pressure, high cholesterol, osteoarthritis and other (gout, hx. alcohol abuse, testicular hypofunction, vitamin d def., glaucoma ).Encounter Diagnosis: Gout, renal disease, Chronic GERD, Hypercholesterolemia, History of diabetes mellitus, Osteoarthritis, Vitamin D deficiency, unspecified, Hemochromatosis carrier, Dysphagia, History of obesity, Fatty liver, Bipolar 1 disorder, depressed, mild, Atrial flutter, Testosterone deficiency, Glaucoma, Erectile dysfunction, Hypertension, Alcohol abuse, in remission, Anxiety [facility] Office Visit On: 07-Sep-2015 10:14 Encounter Reason: Follow up ER - Reason for hospitalization note: (fall). Patient has been compliant with instructions. Current medication use: no side effects and compliant with dosing regimen. The patient does not feel End: 08-Sep-2015 7:35 well, has decreased energy level and is sleeping poorly.Encounter Diagnosis: Chin laceration, sequela, Rib pain on right side [facility] Office Visit On: 05-Aug-2015 8:26 Encounter Reason: Follow up for chronic medical issues - The patient feels well with minor complaints and has good energy level. Patient has been compliant with instructions. Current medication use: no side effects, comp End: 05-Aug-2015 9:23 liant with dosing regimen and considered effective by patient. Patient sleeps 7 hours per night. Impact of disease: emotional impact-mild. Nutrition: balanced diet and supplemental vitamins. The medical issues the patient is following up for include blood sugar issues, cardiac issues, depression (anxiety ), gastric reflux, high blood pressure, high cholesterol, osteoarthritis and other (gout, hx. alco hol abuse, testicular hypofunction, vitamin d def., glaucoma ).Encounter Diagnosis: Anxiety (300.00), BPLR I, DEPRESSED, MOST RECENT EPSD, MILD (296.51), Testicular hypofunction (257.2), Erectile dysfunction (607.84), Glaucoma (365.9), Gout (274.9), ABUSE, ALCOHOL, IN REMISSION (305.03), Osteoarthritis (715.96), Gerd (530.81), Atrial flutter, Hemochromatosis carrier, Fatty liver, Hypercholesterolemia (272.0), Dysphagia, Obesity (278.00), Hypertension 401.1 (Renamed from Hypertension (401.0)), Diabetes type II,controlled no comp (250.00), Vitamin D deficiency, unspecified (268.9), History of obesity, History of diabetes mellitus, Abdominal Pain,LUQ (789.02), Need for prophylactic vaccination and inoculation against influenza (V04.81) [facility] Phone Encounter On: 05-May-2015 13:56 Encounter Diagnosis: Hypercholesterolemia (272.0) End: 05-May-2015 14:01 [facility] Phone Encounter On: 05-May-2015 7:54 [facility] End: 05-May-2015 8:03 Office Visit On: 04-Mar-2015 8:16 Encounter Reason: Follow up for chronic medical issues - The patient feels well with minor complaints (slight dizziness if stands up too fast). Patient has been compliant with instructions. Current medication use: no erin End: 04-Mar-2015 9:12 e effects. Patient sleeps 8 hours per night. Impact of disease: no overall impact. Nutrition: balanced diet. The medical issues the patient is following up for include high blood pressure. blood pressure range : (110's over 80's). Encounter Diagnosis: ABUSE, ALCOHOL, IN REMISSION (305.03), Hypercholesterolemia (272.0), Gout (274.9), Anxiety (300.00), Vitamin D deficiency, unspecified (268.9), Hypertension 401.1 (Renamed from Hypertension (401.0)), Gerd (530.81), Osteoarthritis (715.96), Diabetes type II,controlled no comp (250.00), Testicular hypofunction (257.2), Dysphagia, BPLR I, DEPRESSED, MOST RECENT EPSD, MILD (296.51), Glaucoma (365.9), Erectile dysfunction (607.84), Obesity (278.00), Atrial flutter , Fatty liver, Hemochromatosis carrier [facility] Phone Encounter On: 08-Dec-2014 13:06 Encounter Diagnosis: Dysphagia End: 08-Dec-2014 13:15 [facility] Office Visit On: 02-Dec-2014 8:27 Encounter Reason: Follow up for chronic medical issues - The patient feels well with minor complaints (feels lightheaded when he stands up), has good energy level and is sleeping well. Patient has been compliant with ins End: 02-Dec-2014 9:26 tructions. Current medication use: experiencing side effects (lightheadedness). Patient sleeps 8 hours per night. Nutrition: balanced diet.Encounter Diagnosis: Hypertension 401.1 (Renamed from Hypertension (401.0)), Vitamin D deficiency, unspecified (268.9), Osteoarthritis (715.96), Diabetes type II,controlled no comp (250.00), Gerd (530.81), Hypercholesterolemia (272.0), BPLR I, DEPRESSED, MOST RECENT EPSD, MILD (296.51), Dyspnea, ABUSE, ALCOHOL, IN REMISSION (305.03), Anxiety (300.00), Gout (274.9), Erectile dysfunction (607.84), Glaucoma (365.9), Atrial flutter, Obesity (278.00), Testicular hypofunction (257.2), Abnormal blood finding, Elevated d-dimer [facility] Office Visit On: 02-Sep-2014 8:23 Encounter Diagnosis: Abnormal blood finding End: 02-Sep-2014 8:27 [facility] Office Visit On: 02-Sep-2014 7:34 Encounter Reason: Follow up tests - Date: (08/2014)., [ADDITIONAL REASON] Follow up for chronic medical issues - The patient feels well with minor complai End: 02-Sep-2014 8:19 nts (feels lightheaded when he stands up), has good energy level and is sleeping well. Patient has been compliant with instructions. Current medication use: experiencing side effects (lightheadedness). Patient sleeps 8 hours per night. Nutrition: balanced diet. Encounter Diagnosis: Diabetes type II,controlled no comp (250.00), Hypercholesterolemia (272.0), Gerd (530.81), Anxiety (300.00), Vitamin D deficiency, unspecified (268.9), Gout (274.9), Erectile dysfunction (607.84), BPLR I, DEPRESSED, MOST RECENT EPSD, MILD (296.51), Dyspnea, ABUSE, ALCOHOL, IN REMISSION (305.03), Obesity (278.00), Testicular hypofunction (257.2), Hypertension 401.1 (Renamed from Hypertension (401.0)), Osteoarthritis (715.96), Glaucoma (365.9), Elevated d-dimer, Atrial flutter, Need for prophylactic vaccination and inoculation against influenza (V04.81), Abnormal blood chemistry (790.6) [facility] Office Visit On: 28-Jun-2014 9:40 Encounter Reason: Follow up for chronic medical issues - The patient feels well with minor complaints, has good energy level and is sleeping well. Patient has been compliant with instructions. Current medication use: exp End: 28-Jun-2014 10:33 eriencing side effects (lightheadedness with the increased dose of lisinopril) and compliant with dosing regimen. Patient sleeps 8 hours per night. Nutrition: balanced diet.Encounter Diagnosis: Alcohol abuse, continuous drinking behavior (305.01), Obesity (278.00), ABUSE, ALCOHOL, IN REMISSION (305.03), Hypertension 401.1 (Renamed from Hypertension (401.0)), Testicular hypofunction (257.2), Well Male Exam (V70.0), Diabetes type II,controlled no comp (250.00) [facility] Office Visit On: 25-May-2014 10:12 Encounter Reason: Transition into care - The patient is transitioning into care from a hospital ., [ADDITIONAL REASON] Follow up hospital - Reason for ER visit: note: (heart palpitations). The patien End: 25-May-2014 11:40 t feels well with minor complaints (fatigued and sore from cardiovert), has decreased energy level and is sleeping well. Patient has been compliant with instructions. Current medication use: no side effects and compliant with dosing regimen. Encounter Diagnosis: Hypertension 401.1 (Renamed from Hypertension (401.0)), Diabetes type II,controlled no comp (250.00), Atrial flutter, Obesity (278.00), Alcohol abuse, continuous drinking behavior (305.01), Osteoarthritis (715.96), Testicular hypofunction (257.2), Elevated d-dimer [facility] Phone Encounter On: 03-May-2014 16:50 Encounter Diagnosis: Dyspnea End: 03-May-2014 16:52 [facility] Phone Encounter On: 30-Apr-2014 15:47 Encounter Diagnosis: Dyspnea End: 30-Apr-2014 15:54 [facility] Office Visit On: 29-Apr-2014 7:42 Encounter Reason: Follow up tests - Date: (March 2014)., [ADDITIONAL REASON] Follow up for chronic medical issues - The patient feels well with minor complai End: 29-Apr-2014 8:26 nts, has good energy level (normal for him) and is sleeping well. Patient has been compliant with instructions. Current medication use: no side effects and compliant with dosing regimen. Patient sleeps 9 hours per night. Nutrition: inappropriate diet. fasting blood sugars :. Encounter Diagnosis: Testicular hypofunction (257.2), Obesity (278.00), Gout (274.9), Hypercholesterolemia (272.0), Erectile dysfunction (607.84), Alcohol abuse, continuous drinking behavior (305.01), Hypertension 401.1 (Renamed from Hypertension (401.0)), Diabetes type II,controlled no comp (250.00), Vitamin D deficiency, unspecified (268.9), Gerd (530.81), COPD WITH (ACUTE) EXACERBATION (491.21), Anxiety (300.00), Glaucoma (365.9), BPLR I, DEPRESSED, MOST RECENT EPSD, MILD (296.51), Osteoarthritis (715.96), Abnormal blood chemistry (790.6), SOB (786.05) [facility] Annotation/Addendum On: 20-Jan-2014 11:40 Encounter Diagnosis: Unspecified Diagnosis End: 20-Jan-2014 11:44 [facility] Office Visit On: 15-Jan-2014 10:04 Encounter Reason: Cough Encounter Diagnosis: COPD WITH (ACUTE) EXACERBATION (491.21) End: 15-Jan-2014 16:23 [facility] Office Visit On: 06-Nov-2013 7:57 Encounter Reason: Follow up for chronic medical issues - The patient feels well with minor complaints, has good energy level (average) and is sleeping well. Patient has been compliant with instructions. Current medicatio End: 06-Nov-2013 8:51 n use: no side effects and compliant with dosing regimen. Patient sleeps 9 hours per night. Nutrition: inappropriate diet. fasting blood sugars :., [ADDITIONAL REASON] Follow up tests - Date: (10/2013). Encounter Diagnosis: Diabetes type II,controlled no comp (250.00), Need for prophylactic vaccination and inoculation against influenza (V04.81), Testicular hypofunction (257.2), Glaucoma (365.9), Anxiety (300.00), Vitamin D deficiency, unspecified (268.9), BPLR I, DEPRESSED, MOST RECENT EPSD, MILD (296.51), Osteoarthritis (715.96), Gerd (530.81), Hypertension 401.1 (Renamed from Hypertension (401.0)), Abnormal laboratory test result (Renamed from Abnormal laboratory test), Obesity (278.00), Hypercholesterolemia (272.0), Erectile dysfunction (607.84), Alcohol abuse, continuous drinking behavior (305.01), Gout (274.9), Well Male Exam (V70.0) [facility] Office Visit On: 16-Jul-2013 8:47 Encounter Reason: Follow up tests - Date: (05.19.13)., [ADDITIONAL REASON] Follow up for chronic medical issues - The patient feels well with minor complai End: 16-Jul-2013 9:14 nts and has decreased energy level. Patient has been compliant with instructions. Current medication use: no side effects. Patient sleeps 7 hours per night. Impact of disease: emotional impact-mild. Nut rition: balanced diet and supplemental vitamins. The medical issues the patient is following up for include blood sugar issues, cardiac issues, depression, gastric reflux, high blood pressure, high cholesterol and other (obesity ). Encounter Diagnosis: Diabetes type II,controlled no comp (250.00), BPLR I, DEPRESSED, MOST RECENT EPSD, MILD (296.51), Obesity (278.00), Osteoarthritis (715.96), Gerd (530.81), Glaucoma (365.9), Anxiety (300.00), Vitamin D deficiency, unspecified (268.9), Hypertension 401.1 (Renamed from Hypertension (401.0)), Gout (274.9), Hypercholesterolemia (272.0), Erectile dysfunction (607.84), Testicular hypofunction (257.2), Alcohol abuse, continuous drinking behavior (305.01), Abnormal laboratory test result (796.4) [facility] Office Visit On: 08-Jan-2013 7:48 Encounter Reason: Cough - Cough onset was 10 day(s) ago. Note for Cough: had ear infection and sinus infections. augmentin help her. now he has had for 10 days. had sore throat into nasal congestion and now into chest. cleared sputum End: 08-Jan-2013 8:34 Encounter Diagnosis: Diabetes type II,controlled no comp (250.00), Hypertension 401.1 (Renamed from Hypertension (401.0)), Hypercholesterolemia (272.0), Gout (274.9), BRONCHITIS, NOT SPECIFIED ACUTE OR CHRONIC (490.) [facility] Office Visit On: 21-Aug-2012 8:55 Encounter Reason: Follow up tests - Date: (Jul 2012)., [ADDITIONAL REASON] Follow up for chronic medical issues - The patient feels well with minor complai End: 21-Aug-2012 9:55 nts and has decreased energy level. Patient has been compliant with instructions. Current medication use: experiencing side effects (nausea with metformin), compliant with dosing regimen and considered effective by patient. Patient sleeps 7 hours per night. Impact of disease: emotional impact-mild. Nutrition: balanced diet and supplemental vitamins. The medical issues the patient is following up for i nclude blood sugar issues, cardiac issues, depression, gastric reflux, high blood pressure, high cholesterol and other (obesity ). 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 Patient has been compliant with instructions. Current medication use: experiencing erin End: 28-Apr-2012 10:51 e effects (nausea with metformin), compliant with dosing regimen and considered effective by patient. Patient sleeps 7 hours per night. Impact of disease: emotional impact-mild. Nutrition: balanced diet and supplemental vitamins. The medical issues the patient is following up for include blood sugar issues, cardiac issues, depression, gastric reflux, high blood pressure, high cholesterol and other (obesity )., [ADDITIONAL REASON] Follow up tests - Diagnostic tests include other (lipid). Date: (03/28/12). 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 Patient has been compliant with instructions. Current medication use: no side effects and compliant with dosing reg End: 17-Jan-2012 9:12 imen. Patient sleeps 7 hours per night. Impact of disease: emotional impact-mild. Nutrition: balanced diet and supplemental vitamins. The medical issues the patient is following up for include blood sugar issues.Encounter Diagnosis: Diabetes type II,controlled no comp (250.00), Alcohol abuse, continuous drinking behavior (305.01) [facility] Office Visit On: 04-Jan-2012 8:28 Encounter Reason: Follow up for chronic medical issues - The patient feels well with minor complaints and has decreased energy level. Patient has been compliant with instructions. Current medication use: no side effects, End: 04-Jan-2012 9:29 compliant with dosing regimen and considered effective by patient. Patient sleeps 7 hours per night. Impact of disease: emotional impact-mild. Nutrition: balanced diet and supplemental vitamins. The me dical issues the patient is following up for include blood sugar issues, cardiac issues, depression, gastric reflux, high blood pressure, high cholesterol and other (obesity )., [ADDITIONAL REASON] Follow up, Laboratory Test Results - Lab results: abnormal metabolic panel and other (abnormal lipid). Date: (12/31 and 01/03). 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), Gerd (530.81), Hypercholesterolemia (272.0), Obesity (278.00) [facility] Phone Encounter On: 26-Nov-2011 17:39 Encounter Diagnosis: Testicular hypofunction (257.2) End: 26-Nov-2011 17:44 [facility] Office Visit On: 02-Nov-2011 7:45 Encounter Diagnosis: Testicular hypofunction (257.2), Alcohol abuse, continuous drinking behavior (305.01), Vitamin D deficiency, unspecified (268.9), Breast mass (611.72), Hypertension 401.1 (Renamed from Hypertension (401.0)), End: 02-Nov-2011 8:39 Abnormal blood chemistry (790.6) [facility] Annotation/Addendum On: 25-Oct-2011 14:32 Encounter Diagnosis: Testicular hypofunction (257.2) End: 25-Oct-2011 14:34 [facility] Office Visit On: 27-Sep-2011 13:38 Encounter Diagnosis: Abnormal blood chemistry (790.6), Erectile dysfunction (607.84) End: 27-Sep-2011 13:40 [facility] Office Visit On: 21-Sep-2011 7:30 Encounter Reason: Follow up, Diagnostic Procedure Results - Diagnostic tests include other (labs ). Date: (08-31-11). Follow up visit with no current symptoms.Encounter Diagnosis: Alcohol abuse, continuous drinking behavior (305.01), Fatigue (780.79) End: 21-Sep-2011 8:18 , Testicular hypofunction (257.2), Abnormal blood chemistry (790.6), Vitamin D deficiency, unspecified (268.9), Hypertrophy, breast (611.1) [facility] Office Visit On: 06-Sep-2011 8:33 Encounter Reason: Follow up for chronic medical issues - The patient feels well with minor complaints and has decreased energy level. Patient has been compliant with instructions. Current medication use: no side effects, End: 06-Sep-2011 9:27 compliant with dosing regimen and considered effective by patient. Patient sleeps 7 hours per night. Impact of disease: emotional impact-mild. Nutrition: balanced diet and supplemental vitamins. 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), Alcohol abuse, continuous drinking behavior (305.01), Hypercholesterolemia (272.0), Obesity (278.00), Fatigue (780.79) [facility] Erroneous Entry On: 28-Aug-2011 8:54 Encounter Diagnosis: Hypertension 401.1 (Renamed from Hypertension (401.0)), Gout (274.9) End: 28-Aug-2011 8:55 [facility] Erroneous Entry On: 09-Apr-2011 8:55 Encounter Diagnosis: Hypertension 401.1 (Renamed from Hypertension (401.0)), Gout (274.9) End: 09-Apr-2011 8:56 [facility] Office Visit On: 09-Apr-2011 7:53 Encounter Diagnosis: Breast mass (611.72) End: 09-Apr-2011 8:10 [facility] Office Visit On: 06-Nov-2010 8:08 Encounter Reason: Follow up, Laboratory Test Results - Lab results: abnormal metabolic panel and other (abnormal lipid).Encounter Diagnosis: Hypertension 401.1 (Renamed from Hypertension (401.0)), Gout (274.9), Osteoarthritis (715.96), End: 06-Nov-2010 21:35 Obesity (278.00), Glucose Intolerant (271.3), Glaucoma (365.9), Hypercholesterolemia (272.0), Anxiety (300.00), BPLR I, DEPRESSED, MOST RECENT EPSD, 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 Patient has been compliant with instructions. Current medication use: no side effects ,compliant with dosing regime End: 01-Dec-2009 11:10 n and considered effective by patient. Patient sleeps 7 hours per night. Impact of disease: emotional impact-mild. Nutrition: balanced diet and supplemental vitamins. The medical issues the patient is f ollowing up for include other (wheezing, coughing). Encounter Diagnosis: Chronic cough (786.2), Wheezing (786.07), Hypertension 401.1 (Renamed from Hypertension (401.0)) [facility] Office Visit On: 04-Nov-2009 9:14 Encounter Reason: Cough - The onset of the cough has been acute. The cough is characterized as dry and productive of mucoid sputum. The amount of sputum produced is scanty. The cough occurs all the time. The symptoms hav End: 04-Nov-2009 9:55 e been associated with dyspnea ,hoarseness and wheezing. Encounter Diagnosis: Wheezing (786.07) [facility] Nurse Visit On: 08-Sep-2009 9:30 Encounter Reason: Injections - The medication the patient is here to receive is other (Influenza vaccine). Encounter Diagnosis: Need for prophylactic vaccination and inoculation against influenza (V04.81) End: 08-Sep-2009 9:36 [facility] Office Visit On: 07-Jul-2009 12:44 Encounter Reason: Cough - The onset of the cough has been 3 weeks ago. The cough is characterized as dry. The amount of sputum produced is scanty. The cough occurs all the time. The symptoms have been associated with dys End: 07-Jul-2009 13:13 pnea ,hoarseness and wheezing. Encounter Diagnosis: Wheezing (786.07), Gerd (530.81), Chronic cough (786.2) [facility] Office Visit On: 12-May-2009 13:28 Encounter Reason: Follow up for chronic medical issues - The patient feels well with no complaints ,has good energy level and is sleeping well. Patient has been compliant with instructions. Current medication use: no erin End: 12-May-2009 14:12 e effects. Patient sleeps 9 hours per night. Nutrition: balanced diet and no supplemental vitamins & iron. Encounter Diagnosis: Glucose Intolerant (271.3), Hypertension 401.1 (Renamed from Hypertension (401.0)), Hyperpotassemia (276.7), Anxiety (300.00), Osteoarthritis (715.96), Gout (274.9), Obesity (278.00), Hypercholesterolemia (272.0), Glaucoma (365.9), Alcohol abuse, continuous drinking behavior (305.01), Erectile dysfunction (607.84), Neoplasm of uncertain behavior of skin (238.2) [facility] Office Visit On: 06-Apr-2009 17:03 Encounter Diagnosis: Hyperpotassemia (276.7) End: 06-Apr-2009 17:06 [facility] Office Visit On: 31-Mar-2009 8:20 Encounter Reason: Cough - The onset of the cough has been acute (). The cough is characterized as dry. The amount of sputum produced is scanty. The cough occurs mainly at night. The symptoms are aggravated by sup End: 31-Mar-2009 9:44 ine posture. The symptoms have been associated with dysphagia (dry throat) and runny nose. Encounter Diagnosis: BRONCHITIS, NOT SPECIFIED ACUTE OR CHRONIC (490.), Wheezing (786.07), Allergic rhinitis due to other allergen (477.8) [facility] Office Visit On: 01-Feb-2009 8:00 Encounter Reason: Follow up for chronic medical issues - The patient feels well with no complaints ,has good energy level and is sleeping well. Patient has been compliant with instructions. Current medication use: no erin End: 01-Feb-2009 8:27 e effects ,compliant with dosing regimen and considered effective by patient. Patient sleeps 7 hours per night. Impact of disease: emotional impact-mild. Nutrition: balanced diet and supplemental vitami ns. The medical issues the patient is following up for include blood sugar issues ,cardiac issues ,gastric reflux ,high blood pressure ,high cholesterol ,osteoarthritis and other (obesity, erectile dysfunction ). Encounter Diagnosis: Glucose Intolerant (271.3), Osteoarthritis (715.96), Hypercholesterolemia (272.0), Neoplasm of uncertain behavior of skin (238.2), Anxiety (300.00), Obesity (278.00), Well Male Exam (V70.0), Alcohol abuse, continuous drinking behavior (305.01), Erectile dysfunction (607.84), Gout (274.9), Glaucoma (365.9), Hypertension 401.1 (Renamed from Hypertension (401.0)) [facility] Office Visit On: 29-Oct-2008 10:06 Encounter Reason: Follow up for chronic medical issues - The patient feels well with minor complaints ,has good energy level and is sleeping well. Patient has been compliant with instructions. Current medication use: no End: 29-Oct-2008 10:49 side effects ,compliant with dosing regimen and considered effective by patient. Patient sleeps 7 hours per night. Impact of disease: emotional impact-mild. Nutrition: balanced diet. The medical issues the patient is following up for include cardiac issues ,depression ,gastric reflux ,high blood pressure ,high cholesterol and other (obesity, glaucoma, erectile dysfunction ). Encounter Diagnosis: Hypertension 401.1 (Renamed from Hypertension (401.0)), Hypercholesterolemia (272.0), Glucose Intolerant (271.3), Neoplasm of uncertain behavior of skin (238.2), Anxiety (300.00), Osteoarthritis (715.96), Obesity (278.00), Well Male Exam (V70.0), Alcohol abuse, continuous drinking behavior (305.01), Erectile dysfunction (607.84), Gout (274.9), Glaucoma (365.9) [facility] Office Visit On: 25-Sep-2007 8:45 Encounter Reason: Follow up, Laboratory Test Results - Lab results: abnormal blood chemistry and abnormal blood lipids. Date: (09-05-07). Current symptoms/reason for visit include/s Symptoms include allergies (sinus pres End: 25-Sep-2007 9:31 sure ). There is a family history of cardiovascular disease. Past medical history includes cardiovascular disease ,diabetes mellitus ,elevated cholesterol ,elevated triglycerides ,emotional problems ,hypertension and other (obesity ). Encounter Diagnosis: Hypercholesterolemia (272.0), Glucose Intolerant (271.3), Neoplasm of uncertain behavior of skin (238.2), Hypertension (401.0), Anxiety (300.00), Glaucoma (365.9), Osteoarthritis (715.96), Gout (274.9), Obesity (278.00), Erectile dysfunction (607.84), Well Male Exam (V70.0), Alcohol abuse, continuous drinking behavior (305.01) [facility] Office Visit On: 02-May-2007 7:35 Encounter Reason: Follow up for chronic medical issues - The patient feels well with no complaints ,has good energy level and is sleeping well. Patient has been compliant with instructions. Current medication use: no erin End: 02-May-2007 8:11 e effects ,compliant with dosing regimen and considered effective by patient. Patient sleeps 8 hours per night. Impact of disease: no overall impact. Nutrition: balanced diet. The medical issues the pat ient is following up for include cardiac issues ,depression (anxiety ) ,gastric reflux ,high blood pressure ,high cholesterol and other (obesity ). 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 Encounter Diagnosis: Hypercholesterolemia (272.0), Glucose Intolerant (271.3), Neoplasm of uncertain behavior of skin (238.2), Hypertension (401.0), Anxiety (300.00), Glaucoma (365.9), Osteoarthritis (715.96), Gout (274.9), Obesity (278.00), BRONCHITIS, NOT SPECIFIED ACUTE OR CHRONIC (490.), Erectile dysfunction (607.84), Well Male Exam (V70.0), Alcohol abuse, continuous drinking behavior (305.01) [facility] Nurse Visit On: 29-Nov-2006 9:47 [facility] End: 29-Nov-2006 9:49 Office Visit On: 21-Nov-2006 11:17 Encounter Diagnosis: Neoplasm of uncertain behavior of skin (238.2) End: 21-Nov-2006 16:26 [facility] Office Visit On: 07-Nov-2006 8:53 Encounter Reason: Skin lesion - The skin lesion appeared gradually and has been occurring for 15 years. It has been increasing in size (it got opened up). The skin lesion is characterized as red ,weeping and raised above End: 07-Nov-2006 9:20 the skin. The skin lesion is located on the back. Note for Skin lesion: he scratched it - its been there for years- looks like a blood mole per pt but now the top is scabbed and the base has a re ring around it that blanches Encounter Diagnosis: Neoplasm of uncertain behavior of skin (238.2) [facility] Office Visit On: 09-Oct-2006 9:16 Encounter Diagnosis: Glucose Intolerant (271.3), BRONCHITIS, NOT SPECIFIED ACUTE OR CHRONIC (490.) End: 09-Oct-2006 9:25 [facility] Office Visit On: 09-Oct-2006 8:40 Encounter Reason: Upper respiratory infection - The duration of the symptoms are 3 days Associated features include cough (brown prod) ,nasal discharge/stuffy nose ,purulent discharge from ear and sore throat (upper throat behind sinus). , End: 09-Oct-2006 9:15 [ADDITIONAL REASON] Follow up for chronic medical issues - The medical issues the patient is following up for include high blood pressure ,high cholesterol and other (obesity, depression). blood pressu re range : (118/80-122/80). Note for Follow up for chronic medical issues: gout gone with allopurinol, xanax 3 1/2 a day, therapy dr. medina Encounter Diagnosis: Anxiety (300.00), Hypertension (401.0), Hypercholesterolemia (272.0), Glaucoma (365.9) , Obesity (278.00), Osteoarthritis (715.96), Gout (274.9), Glucose Intolerant (271.3), Erectile dysfunction (607.84), Well Male Exam (V70.0) [facility] Historical Summary On: 09-Sep-2006 12:12 Encounter Diagnosis: Unspecified Diagnosis End: 09-Sep-2006 12:17 [facility] Historical Summary On: 22-Aug-2006 11:43 [facility] End: 22-Aug-2006 11:[address] [facility]; a guarantor
--- OUTSIDE RECORDS SUMMARY | 2019-02-06 03:52 | XMS RPT_ITS | Continuity of Care Document ---
:1960 Author Organization [facility] Address [address] [place] [address] Phone Care Team Providers Name Role Phone Samina Gomez MD Unavailable Kenisha , Dr. Terrell Unavailable [facility] Unavailable Ronaldo German Jr Unavailable Samina Gomez [...] Comments: cardioverted X2 May 15 2014.Seeing rolando. mf6hgvz seen him last saw on jul 2017 [...] psychologist to hep process. will send Blessing ornelas increase zoloft. no SI no manic signs and symptomsfor panic attack, 1991, on xanaxXanax 1/2 tablet TID, stableWas seeing Dr Verde Psychiatrist, Status: Active Diabetes mellitus type II, controlled, with no complications (E11.9, 250.00) Comments: better with weight loss. Status: Active Dysphagia (R13.10, 787.20) Comments: better Status: Active Encounter for health maintenance examination with abnormal findings (Z00.01, V70.0) Comments: 03-31-18 [facility] physical: PSA -18, Hep C screening negative, BMI 42.9 EKG changes noted had echo 18 EF 50%, A1C=5.5%, PHQ-9 9 (mild) 6CIT [...] wilstop Status: Active Hypertension (I10, 401.9) Comments: 4-17 patient notice b/p back up, since recent weight gain Status: Active Impaired fasting glucose (R73.01, 790.21) Status: Active Need for Tdap vaccination (Renamed from Need for vncvbvqygw-tkmrgzg-uzumxtlnr (Tdap) vaccine, adult/adolescent) (Z23, V06.1) Status: Active [...] Dana M Start : 04-Mar-2017 Active Ergocalciferol 08944 UNIT Oral Capsule 1 Capsule q month [...] Quantity: 28 {Tablet} Refills: 0 Ordered:18-Jul-2018 Samina Gomez MD, MD, Dana M Start : 18-Jul-2018 End : 01-Aug-2018 Inactive BENICAR, 20MG (Oral Tablet) Tablet QD for 0 days Quantity: 30 {Tablet} Refills: 5 Ordered:07-Jul-2009 MIKKI De La Cruz Start : 07-Jul-2009 End : 14-Jul-2009 Inactive DAILY MULTIPLE VITAMINS (Oral Tablet) 1 Tablet daily for 0 days Quantity: 30 {Tablet} Refills: 6 Ordered:02-Sep-2014 Ousmane Estephanie Start : 02-Nov-2011 End : 02-Sep-2014 Inactive FENOFIBRATE, 160MG (Oral Tablet) 1 Tablet qd for 0 days Quantity: 90 {Tablet} Refills: 3 Ordered:05-May-2015 Long LUSTERER, Savanna L Start : 16-Mar-2014 End : 05-May-2015 Inactive FENOFIBRATE, 160MG (Oral Tablet) 1 Tablet qd for 0 days Quantity: 90 {Tablet} Refills: 3 Ordered:05-May-2015 Long LUSTERER, Savanna L Start : 16-Mar-2014 End : [...] for 0 days Refills: 0 Ordered:06-Nov-2010 Darrell ALMONTEN, Savanna L Start : 09-Oct-2006 End : 06-Nov-2010 Inactive Lisinopril 20 MG Oral Tablet 1 (one) Tablet bid for 0 days Quantity: 180 {Tablet} Refills: 3 Ordered:09-Aug-2018 Juma SILVA, Samina Michaud MD Start : 09-Aug-2018 End : 09-Aug-2018 Inactive Lisinopril 20 MG Oral Tablet 1 (one) Tablet bid for 90 days Quantity: 90 {Tablet} Refills: 3 Ordered:09-Aug-2018 Samina Gomez MD, MD, Dana M Start : 09-Aug-2018 End : 09-Aug-2018 Inactive LOMOTIL, 2.5-0.025MG (Oral Tablet) 1 Tablet qid/prn for 0 days Quantity: 20 {Tablet} Refills: 0 Ordered:06-Nov-2010 Darrell LUSTERER, Savanna L Start : 31-Jan-2010 End : [...] Refills: 0 Ordered:27-Jan-2014 Samina Gomez MD, MD, Dana M Start : 15-Jan-2014 End : 22-Jan-2014 Inactive [...] days Quantity: 30 {Tablet} Refills: 3 Ordered:06-Sep-2017 Juma SILVA, Samina Callahan MD, Samina Edwards Start : 06-Sep-2017 End [...] days Quantity: 180 {Tablet} Refills: 3 Ordered:04-Nov-2015 Slarb ARCHIE May Start : 30-Aug-2015 End : 04-Nov-2015 Discontinued TIMOLOL, 0.5% (Ophthalmic Solution) 1 drop each eye qd for 0 days Refills: 0 Ordered:06-Nov-2010 Savanna Ramírez LPN End : 06-Nov-2010 Discontinued Comments:This order discontinued per [facility]. ZYRTEC, 10MG (Oral Tablet) Tablet QD for 0 days Refills: 0 Ordered:04-Nov-2009 MIKKI De La Cruz Start : 04-Nov-2009 End : 06-Sep-2011 Discontinued Comments:This order discontinued per [facility]. Allergies and Adverse Reactions Name Dates Details [...] most recent echo show EF of 40% (02-01), had echo 05-01 EF was 55% Status: [...] chewing tobacco Status: Resolved as of 31-Mar-2018 Dyspnea (R06.00, 786.09) Status: Inactive as of [...] Unspecified Diagnosis Status: Resolved as of 09-Dec-2017 Unspecified Diagnosis Status: Inactive as of 02-Dec-2014 Weight gain (R63.5, 783.1) Comments: talkabout issue why gain back and getting back on track Status: Resolved as of 31-Mar-2018 Wheezing (R06.2, 786.07) Status: Inactive as of 02-Dec-2014 Procedures Date Value Details 25-Aug-2018 12 Lead Electrocardiogram Result: Comments: See Note; NOTES: [facility] Cardiovascular Services [address] [place] [address] 12 Lead EKG 08/20/18 1825 MR#: [id number] Acct: [id number] Name: VISHAL BAILEY Rep #: [id number] : 1960 57 From: Ken Ortiz MD [...] ECG Confirmed by MUNA SILVA, KEN ([id number]), copy editor MATTI DOBSON ([id number]) on 08/25/2018 3:13:27 PM Referred By: ACOSTA/KAVON Confirmed By:KEN ORTIZ MD 08/25/18 1513 Date _ Ken Ortiz MD CC: Samina Gomez MD; Jovani Green MD Signed 21-Aug-2018 Discharge Instruction Result: Comments: See Note; NOTES: [facility] Medical Records Department [address] [place] [address] Discharge Instruction 08/20/181927 MR#: [id number] Acct: [id number] Name: DO SHELLY BAILEY Rep #: [id number] : 1960 57 From: Jovani Green MD [...] your Primary Care Provider. Call [facility] ([phone]) or report to the closest Emergency Room. Call 911 if necessary. 08/21/18 0030 <Electronically signed by Jovani Green MD> Date Jovani Green MD Cosigner Signature (If Indicat ed): Date CC: Samina Gomez MD 21-Aug-2018 Emergency Department Summary Result: Comments: See Note; NOTES: [facility] Medical Records Department [address] [place] [address] Emergency Department Summary 08/20/18 1858 MR#: [id number] Acct: [id number] Name: VISHAL BAILEY Rep #: [id number] : 1960 57 From: Jovani Green MD [...] your Primary Care Provider. Call [facility] ([phone]) or report to the closest Emergency Room. Call 911 if necessary. 08/21/18 0030 <Electronically signed by Jovani Fitzgerald> Date Jovani Green MD Cosigner Signature (If Indicated): Date CC: Samina Gomez MD 20-Aug-2018 Chest 1 View (Portable) Result: Comments: See Note; NOTES: [facility] Imaging Services [address] [place] [address] Chest 1 View (Portable) MR#: [id number] Acct: [id number] Name: VISHAL BAILEY Rep #: [id number] : 1960 M 57 From: Iris Dobson MD PCP: Samina Gomez MD Status: PRE ER Study: Chest 1 View (Portable) Date of Exam: 08/20/18 Exam# [id number] Ordering Dr: Jovani Green MD STUDY: X-RAY CLEMENTE REASON FOR EXAM: Male, 57 years old. [...] CC: Samina Gomez MD; Jovani Green MD Service Delivery Supervisor: Signed 09-Apr-2018 Cardiology Visit Report Result: Comments: See Note; NOTES: [address] [place] [address] OFFICE VISIT Date of Service: 04/09/18 MR#: [id number] Acct: [id number] Name: VISHAL BAILEY ep #: [id number] : 1960 Provider: MARCK Ospina Age/Sex: 57/M Location: [facility] [place] Status: Signed HPI HPI Details: VISHAL BAILEY, is a 57 M who presents to the office today for a cardiovascular out patient follow-up. He has a history of atrial flutter with cardioversion in 2013, cardiomyopathy, hypertension, hyperlipidemia, diabetes mellitus, and obesity. Patient presented to [facility] emergency department in January 2018 after [...] brachial Intake Visit Reasons: 6 M FU Vitreo Retinal Surgeon Required: No Accompanied by: None Is patient [...] to 54 (50% per echo 11/27/2017 at [facility] Medical History Paroxysmal atrial flutter (Chronic) Systolic [...] Lead Electrocardiogram Result: Comments: See Note; NOTES: [facility] Cardiovascular Services [address] [place] [address] 12 Lead EKG 02/15/18 0831 MR#: [id number] Acct: [id number] Name: VISHAL BAILEY Giovanni Rep #: [id number] : 1960 57 From: Ken Ortiz MD [...] bundle branch block Abnormal ECG Confirmed by MUNA SILVA, KEN ([id number]), copy editor MATTI DOBSON (56) on 02/17/2018 1:57:55 PM Referred By: ARIELLE Confirmed By:KEN ORTIZ MD 02/17/18 1358 Date Ken Ortiz MD CC: Samina Gomez MD; Abhijit Lea MD; Celia Khanna MD Signed 17-Feb-2018 12 Lead Electrocardiogram Result: Comments: See Note; NOTES: [facility] Cardiovascular Services [address] [place] [address] 12 Lead EKG 02/15/18 1002 MR#: [id number] Acct: [id number] Name: VISHAL BAILEY Rep #: [id number] : 1960 57 From: Ken Ortiz MD [...] age undeter mined Abnormal ECG Confirmed by MUNA SILVA, KEN ([id number]), copy editor MATTI DOBSON (56) on 02/17/2018 1:38:59 PM Referred By: MINERVA Confirmed By:KEN ORTIZ MD 02/17/18 1339 Date Ken Ortiz MD CC: Samina Gomez MD; Abhijit Lea MD Signed 17-Feb-2018 12 Lead Electrocardiogram Result: Comments: See Note; NOTES: [facility] Cardiovascular Services [address] [place] [address] 12 Lead EKG 02/15/18 0902 MR#: [id number] Acct: [id number] Name: VISHAL BAILEY R Rep #: [id number] : 1960 57 From: Ken Ortiz MD [...] Confirmed by OF KEN SALGADO MD ([id number]), copy editor MATTI DOBSON (56) on 02/17/2018 1:39:12 PM Referred By: MINERVA Confirmed By:KEN ORTIZ MD 02/17/18 1339 Date Ken Fitzgerald CC: Samina Gomez MD; Abhijit Lea MD Signed 15-Feb-2018 Discharge Instruction Result: Comments: See Note; NOTES: [facility] Medical Records Department [address] [place] [address] Discharge Instruction 02/15/18 1015 MR#: [id number] Acct: [id number] Name: DO SHELLY BAILEY R Rep #: [id number] : 1960 57 From: Abhijit Lea MD [...] your Primary Care Provider. Call [facility] ([phone]) or report to the closest Emergency Room. Call 911 if necessary. 02/15/18 1706 <Electronically signed by Abhijit Lea MD> Date Abhijit Lea MD Co signer Signature (If Indicated): Date CC: Samina Gomez MD 15-Feb-2018 Emergency Department Summary Result: Comments: See Note; NOTES: [facility] Medical Records Department [address] [place] [address] Emergency Department Summary 02/15/18 0928 MR#: [id number] Acct: [id number] Name: VISHAL BAILEY Rep #: [id number] : 1960 57 From: Abhijit Lea MD [...] Atrial flutter This note was generated with [employer] dictation software. It may contain incorrect words, [...] problems, contact your Primary Care Provider. Call [employer] Registry ([phone]) or repor t to the closest Emergency Room. Call 911 if necessary. 02/15/18 8993 <Electronically signed by Abhijit Lea MD> Date Abhijit Lea MD Cosigner Signature (If Indicated): Date CC: Samina Gomez MD 15-Feb-2018 Chest 1 View (Portable) Result: Comments: See Note; NOTES: [facility] Imaging Services [address] [place] [address] Chest 1 View (Portable) MR#: [id number] Acct: [id number] Name: VISHAL BAILEY Rep #: [id number] : 1960 M 57 From: Anthony Guzman MD PCP: Samina Gomez MD Status: REG ER Study: Chest 1 View (Portable) Date of Exam: 02/15/18 Exam# [id number] Ordering Dr: Abhijit Lea MD STUDY: X-RAY [...] CC: Samina Gomez MD; Abhijit Lea MD Service Delivery Supervisor: Signed 09-Dec-2017 12 Lead Electrocardiogram Result: Comments: See Note; NOTES: [facility] Cardiovascular Services [address] [place] [address] 12 Lead EKG 12/07/171917 MR#: [id number] Acct: [id number] Name: VISHAL BAILEY R Rep #: [id number] : 1960 57 From: Stiven Goldman MD [...] : 439 ms Normal sinus rhythm Septal DC, age undetermined , cannot be excluded Confirmed by CAMERON SILVA, STIVEN ([id number]), copy editor MATTI DOBSON (56) on 12/09/2017 1:21:21 PM Referred By: ACOSTA Confirmed By:STIVEN GOLDMAN MD 12/09/17 1321 Date Stiven Goldman MD CC: Samina Gomez MD Signed 07-Dec-2017 Discharge Instruction Result: Comments: See Note; NOTES: [facility] Medical Records Department [address] [place] [address] Discharge Instruction 12/07/172120 MR#: [id number] Acct: [id number] Name: DO SHELLY BAILEY R Rep #: [id number] : 1960 57 From: Jovani Green MD PCP: Samina Gomez MD Status: DEP ER ED Disposition - Plan for ED Patient: Disposition: Home or Assisted Living Chief Complaint: Pal pitations Instructions: ED Palpitations Referrals: Samina Gomez MD [Primary Care Provider] - As soon as possible Additional Instructions: Follow-up with Dr. Gomez. If you continue to have palpitation s follow-up with Dr. Moodispaw. Your labs, chest x-ray and EKG today were normal. What to do if you have Problems For any increased pain, shortness of breath, bleeding, nausea or vomiting, chest pa in, or any unexpected problems, contact your Primary Care Provider. Call [facility] ([phone]) or report to the closest Emergency Room. Call 911 if necessary. 12/07/170 <Electron ically signed by Jovani Green MD> Date Jovani Green MD Cosigner Signature (If Indicated): Date CC: Samina Gomez MD 07-Dec-2017 Emergency Department Summary Result: Comments: See Note; NOTES: [facility] Medical Records Department [address] [place] [address] Emergency Department Summary 12/07/171942 MR#: [id number] Acct: [id number] Name: VISHAL BAILEY Rep #: [id number] : 1960 57 From: Jovani Green MD [...] atrial flutter This note was generated with [employer] dictation software. It may contain incorrect words, [...] Emergency Room. Call 911 if necessary. 12/07/17 5394 <Electronically signed by Jovani Green MD> Date _ Jovani Green MD Cosigner Signature (If Indicated): Date CC: Samina Gomez MD 07-Dec-2017 Chest 1 View (Portable) Result: Comments: See Note; NOTES: [facility] Imaging Services [address] [place] [address] Chest 1 View (Portable) MR#: [id number] Acct: [id number] Name: VISHAL BAILEY Giovanni Rep #: [id number] : 1960 M 57 From: Andrew Abraham MD PCP: Samina Gomez MD Status: DEP ER Study: Chest 1 View (Portable) Date of Exam: 12/07/17 Exam# [id number] Ordering Dr: Jovani Green MD STUDY: X-RAY [...] CC: Samina Gomez MD; Jovani Green MD Service Delivery Supervisor: Signed 27-Nov-2017 Echocardiogram Complete Result: Comments: See Note; NOTES: [facility] Cardiovascular Services [address] [place] [address] Echo Complete 11/27/17 0951 MR#: [id number] Acct: [id number] Name: VISHAL BAILEY #: [id number] : 1960 57 From: Stiven Goldman MD Attending Dr: Samina Gomez MD Status: REG CLI Ordering Dr: Samina Gomez MD Date: 11/27/17 Location: [facility] Sex: M C Admitted: Reason For Stud [...] MD CC: Samina Gomez MD Date Dictated: 11/27/1751 Date Transcribed: 11/27/171804 Service Delivery Supervisor: Signed 15-Feb-2017 Echocardiogram Complete Result: Comments: See Note; NOTES: [facility] Cardiovascular Services [address] [place] [address] Echo Complete 02/15/1753 MR#: [id number] Acct: [id number] Name: VISHAL BAILEY p #: [id number] : 1960 56 From: Ken Ortiz MD Attending Dr: Samina Gomez MD Status: REG CLI Ordering Dr: Samina Gomez MD Date: 02/15/17 Location: [facility] Sex: M C Admitted: Reason For Study: [...] LV V1 max P.3 mmHg TR max dario: 211.8 cm/sec TR max P.0 mmHg Interpretation Summary Normal LV size. Mi ld concentric left ventricular hypertrophy. The estimated ejection fraction is 40 %. Mild global left ventricular systolic dysfunction. Mild tricuspid valve insufficiency. Ordering Physician: Samina Gomez Performed By: Mildred Pond RDCS, RVT Electronically signed by: Ken Ortiz MD on 017 02:22 PM 02/15/17 1422 Date Ken Ortiz MD CC: Samina Gomez MD Date Dictated: 02/15/17 0953 Date Transcribed: 02/15/17 1422 Service Delivery Supervisor: Signed 16-Dec-2014 Esophagus Only Result: Comments: See Note; NOTES: [facility] Imaging Services [address] [place] [address] Radiology Report MR#: [id number] Acct: [id number] Name: VISHAL BAILEY Rep #: [id number] : 1960 M 54 From: Hood Thornton MD PCP: Samina Gomez MD Status: REG CLI Study: Esophagus Only Date of Exam: 12/16/14 Exam# [id number] Ordering Dr: Samina Gomez MD STUDY: X-RAY [...] Hood Thornton MD at 8:59 EST Tel [phone], Service flores pport [phone], CC: Samina Gomez MD Service Delivery Supervisor: Signed 23-Sep-2014 Abdomen WITH IV Contrast Result: Comments: See Note; NOTES: [facility] Imaging Services [address] [facility] [place] [address] CAT Scan Report MR#: [id number] Acct: [id number] Name: VISHAL BAILEY Rep #: [id number] : 1960 M 53 From: Hood Thornton MD PCP: Samina Gomez MD Status: REG CLI Study: Abdomen WITH IV Contrast Date of Exam: 09/23/14 Exam# [id number] Ordering Dr: Xander De MD [facility]: CT ABDOMEN WITH CONTRAST REASON FOR EXAM: [...] Hood Thornton MD at 11:45 EST Tel [phone], Service support [phone], CC: Samina Gomez MD; Xander De Service Delivery Supervisor: Signed Immunization Name Dates Details Influenza (3 years and up) on: 08-Sep-2009 Comments: Lot #: [id number] date: mount given: 0.5 mlRoute: IMSite [...] Status: Active Current Work/Study Status Comments: 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 [place], [place], [id number] GAP 10 (Normal) Range: 5-15 CO2 27.0 [...] A.D.A. criteria.Please note revised GLUCOSE reference range /02/2018. 0-Jnc-541952:31 CBC W/Diff, Automated Comments: [facility] [address] [place], [place], [address] Absolute Lymph 2.67 {X10_3/ul} (Normal) Range: 0.83-4.51 [...] 4.6-6.2 WBC 9.7 K/mm3 (Normal) Range: 4.4-11.0 7-Cus-048218:31 Troponin-I Comments: [facility] [address] [place], [address] TROPONIN-I < 0.015 ng/mL (Normal) Comments: TROPONIN-I EXPECTED VALUES <0.045 Negative 0.045 - 0.590 Consistent with Cardiac Damage > OR = 0.600 Critical Value Not every elevated troponin is indicative of DC. T hesevalues should be used with clinical judgement in examiningthe patient's clinical picture for diagnosis. To establisha diagnosis of DC versus myocardial injury, there must be ademonstrated rise and/ or fall in the troponin values, inaddition to ischemic symptoms, EKG changes, new regionalwall motion abnormality, and/or angiographical evidence. PLEASE NOTE: REFERENCE RANGES EDITED 03/31/1828-Jul-201802-Fgy-881230:19 HGB A1C (00188) Comments: PATIENT NOT FASTINGPERFORMED BY: [facility]6[address] [facility] [id number] Hemoglobin A1c 5.8 % (Abnormal) Range: 4.8-5.6 Comments: . Prediabetes: 5.7 - 6.4 Diabetes: >6.4 Glycemic control for adults with diabetes: <7.0 30-Uov-288186:19 TSH (34798) Comments: PATIENT NOT FASTINGPERFORMED BY: [facility] [facility] [id number] TSH 3.030 {uIU/mL} (Normal) Range: 0.450-4.500 40-Ibn-070041:19 CBC, Platelets & Auto Diff Comments: PATIENT NOT FASTINGPERFORMED BY: [facility]6[address] [facility] [id number] (23742) Immature Grans (Abs) 0.0 {x10E3/uL} (Normal) Range: [...] 4.14-5.80 WBC 11.1 {x10E3/uL} (Abnormal) Range: 3.4-10.8 79-Kyn-830694:19 Metabolic Panel, Comprehensive Comments: PATIENT NOT FASTINGPERFORMED BY: [facility] Center[facility]xgdki8310 [facility] [id number] (06478) ALT (SGPT) 37 [iU]/L (Normal) Range: 0-44 [...] 6-24 Glucose 131 mg/dL (Abnormal) Range: 65-99 83-Ssj-225619:59 PSA (Prostate Specific Comments: PATIENT NOT FASTINGPERFORMED BY: [facility] CenterDwffpu5439 [facility] [id number] Antigen), Screening (35756) Prostate Specific Ag, 1.2 ng/mL (Normal) Range: 0.0-4.0 Serum Comments: Yany ECLIA methodology. .According to the [employer] [employer], Serum PSA shoulddecrease and remain [...] CREATININE RATIO Comments: PATIENT NOT FASTINGPERFORMED BY: [facility] [id number] (38969) AND (02181) Alb/Creat Ratio 1.6 {mg/g_creat} (Normal) Range: 0.0-30.0 Albumin, Urine 3.1 ug/mL (Normal) Creatinine, Urine 193.0 mg/dL (Normal) :21 URINALYSIS (02463) Comments: PATIENT NOT FASTINGPERFORMED BY: [employer]6370 [facility] [id number] Microscopic Examination MICNIP (Normal) Comments: Microscopic not indicated and not performed. Nitrite, Urine Negative (Normal) Urobilinogen,Semi-Qn 0.2 mg/dL (Normal) Range: 0.2-1.0 Bilirubin Negative (Normal) Occult Blood Negative (Normal) Ketones Negative (Normal) Glucose Negative (Normal) Protein Negative (Normal) WBC Esterase Negative (Normal) Appearance Clear (Normal) Urine-Color Yellow (Normal) pH 5.0 (Normal) Range: 5.0-7.5 Specific [place] 1.025 (Normal) Range: 1.005-1.030 :21 CBC WITH MANUAL DIFF Comments: PATIENT NOT FASTINGPERFORMED BY: [facility] [id number] Information: NURSE DRAW (40233) Immature Grans (Abs) 0.0 {x10E3/uL} (Normal) Range: [...] 4.14-5.80 WBC 8.4 {x10E3/uL} (Normal) Range: 3.4-10.8 18-Mar-20181:21 Metabolic Panel, Comprehensive Comments: PATIENT NOT FASTINGPERFORMED BY: [facility] CenterSlybhp6709 [facility] [id number]; appt 03/31 (04482) ALT (SGPT) 34 [iU]/L (Normal) Range: 0-44 [...] 6-24 Glucose 128 mg/dL (Abnormal) Range: 65-99 83-Eot-13825:40 Basic Metabolic Profile (BMP) Comments: 'TROP' Serial specimen #1, #2, #3, or #4: [address] [place] [address] [address] [place], [address] GAP 7 (Normal) Range: 5-15 CO2 30.0 [...] A.D.A. criteria.Please note revised GLUCOSE reference range oylzlhxws81/02/2018. 22-Bil-84269:40 CBC W/Diff, Automated Comments: [facility] [address] [place], [address] Absolute Lymph 2.28 {X10_3/ul} (Normal) Range: 0.83-4.51 [...] 4.6-6.2 WBC 10.0 K/mm3 (Normal) Range: 4.4-11.0 35-Idl-81797:40 Troponin-I Comments: 'TROP' Serial specimen #1, #2, #3, or #4: [facility] [address] [place], [place], [address] TROPONIN-I < 0.02 ng/mL (Normal) Comments: TROPONIN-I EXPECTED VALUES <0.05 NEGATIVE 0.06 - 0.59 AT RISK OF DC > OR = 0.60 SUGGEST DC 40-Via-175356:39 Basic Metabolic Profile (BMP) Comments: Has pt arrived? YComments: [facility] [address]rsv[address] [place], [place], [address] GAP 9 (Normal) Range: 5-15 CO2 28.0 [...] 7-18 GLU 108 mg/dL (Normal) Range: 70-110 35-Lhf-112783:48 Basic Metabolic Profile (BMP) Comments: 'TROP' Serial specimen #1, #2, #3, or #4: 1[facility] [address] [place], [place], [address] GAP 9 (Normal) Range: 5-15 CO2 18.0 [...] 7-18 GLU 72 mg/dL (Normal) Range: 70-110 96-Zmd-079916:48 CBC W/Diff, Automated Comments: [facility] [address] [place], [address] Absolute Lymph 2.40 {X10_3/ul} (Normal) Range: 0.83-4.51 [...] 4.6-6.2 WBC 7.2 K/mm3 (Normal) Range: 4.4-11.0 :48 Troponin-I Comments: 'TROP' Serial specimen #1, #2, #3, or #4: [address] [place] [address] [address] [place], [place], [address] TROPONIN-I < 0.02 ng/mL (Normal) Comments: TROPONIN-I EXPECTED VALUES <0.05 NEGATIVE 0.06 - 0.59 AT RISK OF DC > OR = 0.60 SUGGEST DC 45-Srv-347198:41 HEPATIC FUNCTION PANEL Comments: PATIENT WAS FASTINGPERFORMED BY: [employer] [facility] [id number] BY: [employer] [facility] [id number] (54531) ALT (SGPT) 55 [iU]/L (Abnormal) Range: 0-44 AST (SGOT) 67 [iU]/L (Abnormal) Range: 0-40 Alkaline Phosphatase, S 87 [iU]/L (Normal) Range: 39-117 Bilirubin, Direct 0.22 mg/dL (Normal) Range: 0.00-0.40 Bilirubin, Total 0.7 mg/dL (Normal) Range: 0.0-1.2 Albumin, Serum 3.7 g/dL (Normal) Range: 3.5-5.5 Protein, Total, Serum 6.1 g/dL (Normal) Range: 6.0-8.5 35-Wlj-854665:41 LIPOPROTEIN, BLD, BY NMR Comments: PATIENT WAS FASTINGPERFORMED BY: Fitfully [address] [id number] BY: eduplanet KK F[address] [place] [address] [id number]; fu 1-16 DB (67036) LP-IR Score 76 (Abnormal) Comments: INSULIN RESISTANCE MARKER <--Insulin Sensitive Insulin Resistant--> Percentile in Reference PopulationInsulin Resistance ScoreLP-IR Score Low 25th 50th 75th High <27 27 45 63 >63LP-IR Score is inaccurate if patient is non-fasting. .The LP-IR score is a laboratory developed i [facility] that has beenassociated with insulin resistance and [...] were developed and their performance characteristicsdetermined by [employer]. These assays have not been cleared by [...] 1600 - 2000 Very High > 2000 60-Fyj-831386:41 Hemoglobin Glyclated (HGB Comments: now and every in three months (approximately); PATIENT WAS FASTINGPERFORMED BY: [facility]1447 [facility] [id number] BY: [place] 3282070 [facility] [id number] A1C) (74294) Hemoglobin A1c 5.2 % (Normal) Range: 4.8-5.6 Comments: . Pre-diabetes: 5.7 - 6.4 Diabetes: >6.4 Glycemic control for adults with diabetes: <7.0 :34 HGB A1C (16279) Comments: PATIENT NOT FASTINGPERFORMED BY: [place] 3282070 [facility] [id number] Hemoglobin A1c 5.3 % (Normal) Range: 4.8-5.6 Comments: . Pre-diabetes: 5.7 - 6.4 Diabetes: >6.4 Glycemic control for adults with diabetes: <7.0 :33 CBC WITH MANUAL DIFF (93911) Comments: PATIENT WAS FASTINGPERFORMED BY: [facility]6370 [facility] [id number] Immature Grans (Abs) 0.0 {x10E3/uL} (Normal) Range: [...] {x10E3/uL} (Normal) Range: 3.4-10.8 :33 Lipid Panel (85723) Comments: PATIENT WAS FASTINGPERFORMED BY: [facility] [id number] LDL/HDL Ratio 2.4 {ratio_units} (Normal) Range: 0.0-3.6 [...] Panel, Comprehensive Comments: PATIENT WAS FASTINGPERFORMED BY: [facility] [id number]; fu 07-23-17 DB (77387) ALT (SGPT) 15 [iU]/L (Normal) Range: 0-44 [...] Glucose, Serum 95 mg/dL (Normal) Range: 65-99 54-Dol-619434:14 PSA (Prostate Specific Comments: PATIENT NOT FASTINGPERFORMED BY: [facility]IncWestern [facility] [id number] Information: NURSE DRAW Antigen), Screening (68407) Prostate Specific Ag, 2.0 ng/mL (Normal) Range: 0.0-4.0 Serum Comments: Wave[employer] ECLIA methodology. .According to the [place] [employer], Serum PSA shoulddecrease and remain at undetectable levels after radicalprostatectomy. The AUA defines biochemical recurrence as an initialPSA value 0.2 ng/mL or greater followed by a subsequent confirmatoryPSA value 0.2 ng/mL or greater.Values obtained with d ifferent assay methods or kits cannot be usedinterchangeably. Results cannot be interpreted as absolute evidenceof the presence or absence of malignant disease. 42-Fad-054519:14 HEPATITIS C ANTIBODY (64158) Comments: PATIENT NOT FASTINGPERFORMED BY: [employer] Genomics RoadDublin [place] [id number] Hep C Virus Ab 0.3 {s/co_ratio} (Normal) Range: 0.0-0.9 Comments: Negative: < 0.8 Indeterminate: 0.8 - 0.9 Positive: > 0.9 . The CDC recommends that a positive HCV antibody result be followed up with a HCV Nucleic Acid Amplification test (437116). 73-Gxi-435118:16 MICROALBUMIN: CREATININE RATIO Comments: PATIENT NOT FASTINGPERFORMED BY: [facility]6370 [facility] [id number] (88558) AND (20307) Microalb/Creat Ratio 3.2 {mg/g_creat} (Normal) Range: 0.0-30.0 Microalbumin, Urine 4.9 ug/mL (Normal) Creatinine, Urine 154.3 mg/dL (Normal) 00-Gvm-147135:16 VITAMIN B12 AND FOLATES Comments: PATIENT NOT FASTINGPERFORMED BY: [place] 3282070 [facility] [id number] (60527) Folate (Folic Acid), Serum 19.8 ng/mL (Normal) Comments: A serum folate concentration of less than 3.1 ng/mL isconsidered to represent clinical deficiency. Vitamin B12 666 pg/mL (Normal) Range: 211-946 81-Seh-213398:16 IRON & TOTAL IRON BINDING Comments: PATIENT NOT FASTINGPERFORMED BY: [facility]6370 [facility] [id number] Information: NURSE DRAW CAPACITY (66694) Iron Saturation 30 % (Normal) Range: 15-55 Iron, Serum 91 ug/dL (Normal) Range: 38-169 UIBC 215 ug/dL (Normal) Range: 111-343 Iron Bind.Cap.(TIBC) 306 ug/dL (Normal) Range: 250-450 69-Kpo-254982:16 FERRITIN (11557) Comments: PATIENT NOT FASTINGPERFORMED BY: [facility]6370 [facility] [id number] Ferritin, Serum 682 ng/mL (Abnormal) Range: 30-400 39-Wht-58012:23 PSA (PROSTATE SPECIFIC Comments: PATIENT NOT FASTINGPERFORMED BY: MyNewFinancialAdvisorNewark Beth Israel Medical CenterEhtbzu2515 [facility] [id number] Information: [id number] ANTIGEN) (41931) Prostate Specific Ag, 1.7 ng/mL (Normal) Range: 0.0-4.0 Serum Comments: Yany ECLIA methodology. .According to the [place] [employer], Serum PSA shoulddecrease and remain [...] CREATININE RATIO Comments: PATIENT WAS FASTINGPERFORMED BY: [employer]6370 [facility] [id number] (92621) AND (24688) Microalb/Creat Ratio <2.9 {mg/g_creat} (Normal) Range: 0.0-30.0 Microalbumin, Urine <3.0 ug/mL (Normal) Creatinine, Urine 101.8 mg/dL (Normal) :22 METABOLIC PANEL, COMPREHENSIVE Comments: PATIENT WAS FASTINGPERFORMED BY: [employer] Wyjqet8590 [facility] [id number] (76523) ALT (SGPT) 13 [iU]/L (Normal) Range: 0-44 [...] mg/dL (Normal) Range: 65-99 :22 LIPID PANEL (75410) Comments: PATIENT WAS FASTINGPERFORMED BY: Lexpertia.comFormerly [facility] [id number] LDL/HDL Ratio 1.2 {ratio_units} (Normal) Range: 0.0-3.6 [...] auto diff Comments: PATIENT WAS FASTINGPERFORMED BY: [employer] [facility] [id number] Information: [id number] (79293) Immature Grans (Abs) 0.0 {x10E3/uL} (Normal) Range: [...] three months (approximately); PATIENT WAS FASTINGPERFORMED BY: [employer] [facility] [id number]; david Grewal 07-17 (95380) Hemoglobin A1c 4.6 % (Abnormal) Range: 4.8-5.6 Comments: . Pre-diabetes: 5.7 - 6.4 Diabetes: >6.4 Glycemic control for adults with diabetes: <7.0 :55 Ferritin (78914) Comments: PATIENT WAS FASTINGPERFORMED BY: [employer] [facility] [id number] Ferritin, Serum 606 ng/mL (Abnormal) Range: 30-400 :55 CALCIFIDIOL (38000) VIT D 25 Comments: PATIENT WAS FASTINGPERFORMED BY: MyNewFinancialAdvisorNewark Beth Israel Medical CenterIdbnyj1001 [facility] [id number] Vitamin D, 25-Hydroxy 64.5 ng/mL (Normal) Range: 30.0-100.0 Comments: Vitamin D deficiency has been defined by the [place] ofMed[facility] Hospitalcine and an Endocrine Society practice guideline as alevel of serum 25-OH vitamin D less than 20 ng/mL (1,2).The Endocrine Society went on to further define vitamin Dinsufficiency as a level between 21 and 29 ng/mL (2).1. IOM ([place] of Medicine). 2010. Dietary reference intakes for calcium and D. [place]: The National Academies Press.2. Audra MF, Erin GRIFFITHS, Brittani CEDEÑO, et al. Evaluation, treatment, and prevention of vitamin D deficiency: an Endocrine Society clinical practice guideline. JCEM. 2010; 96(7):1911-30. :55 METABOLIC PANEL, COMPREHENSIVE Comments: PATIENT WAS FASTINGPERFORMED BY: MyNewFinancialAdvisorNewark Beth Israel Medical CenterImpxnm4206 [facility] [id number] (49532) ALT (SGPT) 18 [iU]/L (Normal) Range: 0-44 [...] Glucose, Serum 96 mg/dL (Normal) Range: 65-99 67-Sgg-74333:55 CBC with auto diff Comments: PATIENT WAS FASTINGPERFORMED BY: LabCoNewark Beth Israel Medical CenterJnhlld3129 [facility] [id number] Information: [id number] (04443) Immature Grans (Abs) 0.0 {x10E3/uL} (Normal) Range: [...] 5.8 {x10E3/uL} (Normal) Range: 3.4-10.8 :10 Ferritin (65244) Comments: PATIENT WAS FASTINGPERFORMED BY: MyNewFinancialAdvisorNewark Beth Israel Medical CenterYmcsyd5320 [facility] [id number] Ferritin, Serum 965 ng/mL (Abnormal) Range: 30-400 :10 LIPID PANEL (18887) Comments: PATIENT WAS FASTINGPERFORMED BY: MyNewFinancialAdvisorNewark Beth Israel Medical CenterRdidgi2254 [facility] [id number] Information: [id number] LDL/HDL Ratio 0.9 {ratio_units} (Normal) Range: 0.0-3.6 [...] CREATININE RATIO Comments: PATIENT WAS FASTINGPERFORMED BY: MyNewFinancialAdvisorNewark Beth Israel Medical CenterJfwhgc8620 [facility] [id number] (26678) AND (00477) Microalb/Creat Ratio 3.3 {mg/g_creat} (Normal) Range: 0.0-30.0 Microalbumin, Urine 3.8 ug/mL (Normal) Range: 0.0-17.0 Creatinine, Urine 113.9 mg/dL (Normal) Range: 22.0-328.0 :10 Hemoglobin Glyclated (HGB A1C) Comments: PATIENT WAS FASTINGPERFORMED BY: [facility]6370 [facility] [id number]; apt. 11-04-15 (54362) Hemoglobin A1c 4.6 % (Abnormal) Range: 4.8-5.6 Comments: . Pre-diabetes: 5.7 - 6.4 Diabetes: >6.4 Glycemic control for adults with diabetes: <7.0 :56 Lipid Panel (99274) Comments: PATIENT WAS FASTINGPERFORMED BY: [facility]6370 [facility] [id number]; apt. 18 LDL/HDL Ratio 0.5 {ratio_units} (Normal) Range: 0.0-3.6 [...] Metabolic Panel, Comments: PATIENT WAS FASTINGPERFORMED BY: [facility]6370 [facility] [id number] Information: [id number] Comprehensive (25226) ALT (SGPT) 22 [iU]/L (Normal) Range: 0-44 [...] three months (approximately); PATIENT NOT FASTINGPERFORMED BY: MyNewFinancialAdvisorNewark Beth Israel Medical CenterLqcsmr8602 [facility] [id number] Information: [id number] A1C) (74555) Hemoglobin A1c 5.1 % (Normal) Range: 4.8-5.6 Comments: . Increased risk for diabetes: 5.7 - 6.4 Diabetes: >6.4 Glycemic control for adults with diabetes: <7.0 :22 Ferritin (78018) Comments: PATIENT NOT FASTINGPERFORMED BY: MyNewFinancialAdvisorNewark Beth Israel Medical CenterOvojez4105 [facility] [id number] Ferritin, Serum 837 ng/mL (Abnormal) Range: 30-400 :22 Hemoglobin Glyclated (HGB A1C) Comments: now and every in three months (approximately); PATIENT NOT FASTINGPERFORMED BY: MyNewFinancialAdvisorNewark Beth Israel Medical CenterSfpiui3423 [facility] [id number] (12168) Hemoglobin A1c 5.4 % (Normal) Range: 4.8-5.6 Comments: . Increased risk for diabetes: 5.7 - 6.4 Diabetes: >6.4 Glycemic control for adults with diabetes: <7.0 :02 LIPID PANEL (45398) Comments: PATIENT WAS FASTINGPERFORMED BY: MyNewFinancialAdvisorNewark Beth Israel Medical CenterWuftoa3076 [facility] [id number] LDL/HDL Ratio 1.3 {ratio_units} (Normal) Range: 0.0-3.6 [...] PANEL, COMPREHENSIVE Comments: PATIENT WAS FASTINGPERFORMED BY: eduplanet KK Kuqboj0730 [facility] [id number] (53154) ALT (SGPT) 25 [iU]/L (Normal) Range: 0-44 [...] Glucose, Serum 105 mg/dL (Abnormal) Range: 65-99 59-Plf-16159:02 CBC W/AUTO DIFF WBC Comments: PATIENT WAS FASTINGPERFORMED BY: [facility]6370 [facility] [id number] Information: [id number] (43042) Immature Grans (Abs) 0.0 {x10E3/uL} (Normal) Range: [...] 8.3 {x10E3/uL} (Normal) Range: 3.4-10.8 :02 CALCIFIDIOL (35526) VIT D 25 Comments: PATIENT WAS FASTINGPERFORMED BY: [address] [id number] Vitamin D, 25-Hydroxy 77.5 ng/mL (Normal) Range: 30.0-100.0 Comments: Vitamin D deficiency has been defined by the [place] of[place]icine and an Endocrine Society practice guideline as alevel of serum 25-OH vitamin D less than 20 ng/mL (1,2).The Endocrine Society went on to further define vitamin Dinsufficiency as a level between 21 and 29 ng/mL (2).1. IOM ([place]). 2010. Dietary reference intakes for [...] mg/dL (Normal) Range: 200-370 Comments: Performed at: [address] [id number] Director: Rickey Leiva PhD, Phone: [phone] :[phone] IRON BINDING CAPACITY (TIBC) Comments: PATIENT NOT FASTINGPERFORMED BY: [address] [id number] (92350) Iron Saturation 28 % (Normal) Range: 15-55 Iron, Serum 90 ug/dL (Normal) Range: 40-155 UIBC 237 ug/dL (Normal) Range: 150-375 Iron Bind.Cap.(TIBC) 327 ug/dL (Normal) Range: 250-450 :12 CBC WITH MANUAL DIFF Comments: PATIENT NOT FASTINGPERFORMED BY: LabCoNewark Beth Israel Medical CenterNaislo3610 [facility] [id number] Information: [id number] (98986) Immature Grans (Abs) 0.0 {x10E3/uL} (Normal) Range: [...] 8.7 {x10E3/uL} (Normal) Range: 3.4-10.8 :12 FERRITIN (03809) Comments: PATIENT NOT FASTINGPERFORMED BY: LabCoNewark Beth Israel Medical CenterTaktvy6877 [facility] [id number] Ferritin, Serum 798 ng/mL (Abnormal) Range: 30-400 :35 HgA1C , Office (71623) HgA1C , Office 6.4 % (Normal) Range: 4.6 - 7.1 :35 Blood Glucose , Office (93386) Blood Glucose , Office 107 (Normal) :09 METABOLIC PANEL, Comments: PATIENT WAS FASTINGPERFORMED BY: DONA LabCoeMindful Gcrpsu9178 [facility] [id number] BY: [facility] Rmgooguozp9820 [facility] [id number] RUST (81107) ALT (SGPT) 14 [iU]/L (Normal) Range: 0-44 [...] mg/dL (Abnormal) Range: 65-99 :09 LIPID PANEL (61401) Comments: PATIENT WAS FASTINGPERFORMED BY: eduplanet KK Vnvsfo1037 [facility] [id number] BY: MyNewFinancialAdvisor[address] [id number] LDL/HDL Ratio 2.9 {ratio_units} (Normal) Range: 0.0-3.6 [...] MANUAL DIFF Comments: PATIENT WAS FASTINGPERFORMED BY: eduplanet KK Irhpbq2490 [facility] [id number] BY: MyNewFinancialAdvisor[address] [id number] Inf ormation: [id number] (04940) Immature Grans (Abs) 0.0 {x10E3/uL} (Normal) Range: [...] 7.4 {x10E3/uL} (Normal) Range: 3.4-10.8 :09 Ferritin (94758) Comments: PATIENT WAS FASTINGPERFORMED BY: [employer] [facility] [id number] BY: [employer] [id number] Ferritin, Serum 793 ng/mL (Abnormal) Range: 30-400 :09 TESTOSTERONE FREE (65750) Comments: PATIENT WAS FASTINGPERFORMED BY: [employer] [facility] [id number] BY: MyNewFinancialAdvisor[address] [id number] Free Testosterone(Direct) 1.8 pg/mL (Abnormal) Range: 7.2-24.0 :09 PSA (PROSTATE SPECIFIC Comments: PATIENT WAS FASTINGPERFORMED BY: [employer]ant[address] [facility] [id number] BY: MyNewFinancialAdvisor[address] [id number] ANTIGEN) (V76.44) Prostate Specific Ag, 1.0 ng/mL (Normal) Range: 0.0-4.0 Serum Comments: Yany ECLIA methodology. .According to the [place] [employer], Serum PSA shoulddecrease and remain [...] of malignant disease. :06 Metabolic Panel, Basic (37686) Comments: PATIENT WAS FASTINGPERFORMED BY: MyNewFinancialAdvisor Tjvfbt3298 [facility] [id number] Calcium, Serum 10.3 mg/dL (Abnormal) Range: 8.7-10.2 [...] mg/dL (Abnormal) Range: 65-99 :06 CBC (Auto) (62101) Comments: PATIENT WAS FASTINGPERFORMED BY: LabCo Mjwmpk2607 [facility] [id number] Information: [id number] Platelets 279 {x10E3/uL} (Normal) Range: 150-379 RDW 13.4 % (Normal) Range: 12.3-15.4 MCH 28.7 pg (Normal) Range: 26.6-33.0 MCHC 34.1 g/dL (Normal) Range: 31.5-35.7 MCV 84 fL (Normal) Range: 79-97 Hematocrit 48.1 % (Normal) Range: 37.5-51.0 Hemoglobin 16.4 g/dL (Normal) Range: 12.6-17.7 RBC 5.72 {x10E6/uL} (Normal) Range: 4.14-5.80 WBC 7.4 {x10E3/uL} (Normal) Range: 3.4-10.8 :56 Blood Glucose , Office (32329) Blood Glucose , Office 91 (Normal) :35 HFE GENE (13788) Comments: PATIENT NOT FASTINGPERFORMED BY: TG [facility] EEP9[address] DriveRTP [place] [id number] BY: CB [facility] Gtwcro5878 [facility] [id number] Information: [id number] Hereditary Hemochromatosis 63HET (Normal) Comments: Result: CARRIERSingle [...] Prev M ed 16:134-140.Lilibeth Biggs (2002). Lancet 360(3373):1673-81.Ludivina Duenas al. (2002). Blood Cells, Molecules. andDiseases. 29(3):418-432.Caden Nguyen al. (2003). Cee Med. 5(1):1-8.Km [place] et al. (2003). Cee Med. 5(4):304-10.Genetic counselors are available for health care providers to discussresults at [phone]. . Richard Canales, PhD Brea Diehl, PhD Josiane Lorenzo, PhD Venessa Tobias, PhD Amirah Payne, PhD Isabell Booker MD, PhD S LISBET Parsons, PhD :35 FERRITIN (04102) Comments: PATIENT NOT FASTINGPERFORMED BY: PDC BiotechNortheast [facility] Network MWX5899 [facility] [place] [id number] BY: MyNewFinancialAdvisor Tglbco2029 [facility] [id number] Ferritin, Serum 712 ng/mL (Abnormal) Range: 30-400 :06 HgA1C , Office (16726) HgA1C , Office 6.5 % (Normal) Range: 4.6 - 7.1 :06 Blood Glucose , Office (38410) Blood Glucose , Office 134 (Normal) :25 Uric Acid Blood (99506) Comments: PATIENT WAS FASTINGPERFORMED BY: MyNewFinancialAdvisor Pogdtt6584 [facility] [id number] BY: [address] [id number] Uric Acid, Serum 6.3 mg/dL (Normal) Range: 3.7-8.6 Comments: Therapeutic target for gout patients: <6.0 :25 TESTOSTERONE FREE (76141) Comments: PATIENT WAS FASTINGPERFORMED BY: MyNewFinancialAdvisor Fhotky0557 [facility] [id number] BY: PDC [employer] [id number] Free Testosterone(Direct) 4.1 pg/mL (Abnormal) Range: 7.2-24.0 :25 CALCIFEDIOL (88562) Comments: PATIENT WAS FASTINGPERFORMED BY: [employer] Knuhqi3808 [facility] [id number] BY: MyNewFinancialAdvisor[address] [id number] Vitamin D, 25-Hydroxy 50.9 ng/mL (Normal) Range: 30.0-100.0 Comments: Vitamin D deficiency has been defined by the [place] of[facility] Hospitalcine and an Endocrine Society practice guideline as alevel of serum 25-OH vitamin D less than 20 ng/mL (1,2).The Endocrine Society went on to further define vitamin Dinsufficiency as a level between 21 and 29 ng/mL (2).1. IOM ([place]). 2010. Dietary reference intakes for calcium and D. [place]: The National Academies Press.2. Audra MF, Erin GRIFFITHS, Brittani CEDEÑO, et al. Evaluation, treatment, and prevention of vitamin D deficiency: an Endocrine Society clinical practice guideline. JCEM. 2010; 96(7):1911-30. :25 MICROALBUMIN: CREATININE Comments: PATIENT WAS FASTINGPERFORMED BY: [employer] Fjpppr1058 [facility] [id number] BY: MyNewFinancialAdvisor[address] [id number] RATIO (32022) AND (01300) Microalb/Creat Ratio 6.4 {mg/g_creat} (Normal) Range: 0.0-30.0 Creatinine, Urine 98.6 mg/dL (Normal) Range: 22.0-328.0 Microalbumin, Urine 6.3 ug/mL (Normal) Range: 0.0-17.0 :25 METABOLIC PANEL, Comments: PATIENT WAS FASTINGPERFORMED BY: [employer]urant70 [facility] [id number] BY: MyNewFinancialAdvisor[address] [id number] COMPREHENSIVE (93737) ALT (SGPT) 31 [iU]/L (Normal) Range: 0-44 [...] Glucose, Serum 125 mg/dL (Abnormal) Range: 65-99 18-Dae-33285:25 LIPID PANEL (27119) Comments: PATIENT WAS FASTINGPERFORMED BY: CB [facility] Hiwvin2542 [facility] [id number] BY: BN [facility] Zmlszrptdr6528 [facility] [id number] HDL Cholesterol 25 mg/dL (Abnormal) Comments: According to ATP-III Guidelines, HDL-C >59 mg/dL is considered anegative risk factor for CHD. VLDL Cholesterol Tyrese VLDLCH mg/dL (Normal) Range: 5-40 Comments: The calculation for the VLDL cholesterol is not valid whentriglyceride level is >400 mg/dL.Triglyceride result indicated is too high for an accurate LDLcholesterol estimation. Cholesterol, Total 149 mg/dL (Normal) Range: 100-199 Triglycerides 408 mg/dL (Abnormal) Range: 0-149 63-Wvs-82987:25 CBC WITH MANUAL DIFF Comments: PATIENT WAS FASTINGPERFORMED BY: CB [facility] Lrpbrh6327 [facility] [id number] BY: BN [facility] Jpmlawirdr3283 [facility] [id number] Inf ormation: [id number] (43567) Immature Grans (Abs) 0.0 {x10E3/uL} (Normal) Range: [...] (Normal) Range: 3.4-10.8 :18 HgA1C , Office (92198) HgA1C , Office 5.8 % (Normal) Range: 4.6 - 7.1 :18 Blood Glucose , Office (57652) Blood Glucose , Office 134 (Normal) :10 CBC WITH MANUAL DIFF Comments: PATIENT WAS FASTINGPERFORMED BY: CB [facility] Tytpjk2854 [facility] [id number] BY: BN [facility] Uhesthyooh7032 [facility] [id number] Inf ormation: [id number] (06879) Immature Grans (Abs) 0.0 {x10E3/uL} (Normal) Range: [...] 8.8 {x10E3/uL} (Normal) Range: 4.0-10.5 :10 Ferritin (33190) Comments: PATIENT WAS FASTINGPERFORMED BY: MyNewFinancialAdvisor[address] [id number] BY: [address] [id number] Ferritin, Serum 472 ng/mL (Abnormal) Range: 30-400 :10 LIPID PANEL (30515) Comments: PATIENT WAS FASTINGPERFORMED BY: MyNewFinancialAdvisor[address] [id number] BY: [address] [id number] LDL/HDL Ratio 2.3 {ratio_units} (Normal) Range: 0.0-3.6 [...] METABOLIC PANEL, Comments: PATIENT WAS FASTINGPERFORMED BY: MyNewFinancialAdvisor[address] [id number] BY: PDC [employer] [id number] COMPREHENSIVE (11937) ALT (SGPT) 21 [iU]/L (Normal) Range: 0-44 [...] MICROALBUMIN: CREATININE Comments: PATIENT WAS FASTINGPERFORMED BY: [employer] [facility] [id number] BY: MyNewFinancialAdvisor[address] [id number] RATIO (41594) AND (45456) Microalb/Creat Ratio 5.7 {mg/g_creat} (Normal) Range: 0.0-30.0 Microalbumin, Urine 6.6 ug/mL (Normal) Range: 0.0-17.0 Creatinine, Urine 115.6 mg/dL (Normal) Range: 22.0-328.0 :10 PSA (PROSTATE SPECIFIC Comments: PATIENT WAS FASTINGPERFORMED BY: [employer]urant70 [facility] [id number] BY: MyNewFinancialAdvisor[address] [id number] ANTIGEN) (V76.44) Prostate Specific Ag, 1.2 ng/mL (Normal) Range: 0.0-4.0 Serum Comments: Yany ECLIA methodology. .According to the [place] [employer], Serum PSA shoulddecrease and remain at undetectable levels after radicalprostatectomy. The AUA defines biochemical recurrence as an initialPSA value 0.2 ng/mL or greater followed by a subsequent confirmatoryPSA value 0.2 ng/mL or greater.Values obtained with d ifferent assay methods or kits cannot be usedinterchangeably. Results cannot be interpreted as absolute evidenceof the presence or absence of malignant disease. :10 TESTOSTERONE FREE (87409) Comments: PATIENT WAS FASTINGPERFORMED BY: [employer] Jgbayn2872 [facility] [id number] BY: PDC [employer] [id number] Free Testosterone(Direct) 11.2 pg/mL (Normal) Range: 7.2-24.0 :10 Uric Acid Blood (91132) Comments: PATIENT WAS FASTINGPERFORMED BY: [employer] Ytbbpe9630 [facility] [id number] BY: MyNewFinancialAdvisor[address] [id number] Uric Acid, Serum 5.7 mg/dL (Normal) Range: 3.7-8.6 Comments: Therapeutic target for gout patients: <6.0 :03 LIPID PANEL (67226) Comments: PATIENT WAS FASTINGPERFORMED BY: [employer] OneJessica Ville [id number] [facility] [facility] [id number] Information: [id number] LDL/HDL Ratio 2.6 {ratio_units} (Normal) Range: 0.0-3.6 LDL Cholesterol Calc 67 mg/dL (Normal) Range: 0-99 VLDL Cholesterol Tyrese 78 mg/dL (Abnormal) Range: 5-40 HDL Cholesterol 26 mg/dL (Abnormal) Comments: According to ATP-III Guidelines, HDL-C >59 mg/dL is considered anegative risk factor for CHD. Triglycerides 390 mg/dL (Abnormal) Range: 0-149 Cholesterol, Total 171 mg/dL (Normal) Range: 100-199 :50 HgA1C , Office (67106) HgA1C , Office 6.7 % (Normal) Range: 4.6 - 7.1 :50 Blood Glucose , Office (23915) Blood Glucose , Office 109 (Normal) :06 CBC WITH MANUAL DIFF Comments: PATIENT WAS FASTINGPERFORMED BY: CB [facility] Mbaifb4808 [facility] [id number] BY: BN [facility] Ikfgpeipjd6271 [facility] [id number] Inf ormation: [id number] (57950) Immature Grans (Abs) 0.0 {x10E3/uL} (Normal) Range: [...] 4.14-5.80 WBC 7.5 {x10E3/uL} (Normal) Range: 4.0-10.5 05-Lvy-07739:06 Ferritin (03403) Comments: PATIENT WAS FASTINGPERFORMED BY: MyNewFinancialAdvisorJessica Ville 8154370 [facility] [id number] BY: [address] [id number] Ferritin, Serum 501 ng/mL (Abnormal) Range: 30-400 :06 LIPID PANEL (05610) Comments: PATIENT WAS FASTINGPERFORMED BY: MyNewFinancialAdvisorJessica V[place] 8154370 [facility] [id number] BY: [address] [id number] VLDL Cholesterol Tyrese VLDLCH mg/dL (Normal) Range: [...] METABOLIC PANEL, Comments: PATIENT WAS FASTINGPERFORMED BY: MyNewFinancialAdvisorJessica V[place] 8154370 [facility] [id number] BY: [address] [id number] COMPREHENSIVE (81305) ALT (SGPT) 32 [iU]/L (Normal) Range: 0-44 [...] MICROALBUMIN: CREATININE Comments: PATIENT WAS FASTINGPERFORMED BY: Lexpertia.comFormerly [facility] [id number] BY: [employer] [id number] RATIO (18872) AND (85830) Microalb/Creat Ratio 5.8 {mg/g_creat} (Normal) Range: 0.0-30.0 Microalbumin, Urine 6.4 ug/mL (Normal) Range: 0.0-17.0 Creatinine, Urine 109.8 mg/dL (Normal) Range: 22.0-328.0 :06 PSA (PROSTATE SPECIFIC Comments: PATIENT WAS FASTINGPERFORMED BY: [employer]urant70 [address] [facility] Of MichiganRazoomFormerly [facility] [id number] BY: [employer] [id number] ANTIGEN) (V76.44) Prostate Specific Ag, 1.2 ng/mL (Normal) Range: 0.0-4.0 Serum Comments: Yany ECLIA methodology. .According to the [place] U[employer] Association, Serum PSA shoulddecrease and remain at undetectable levels after radicalprostatectomy. The AUA defines biochemical recurrence as an initialPSA value 0.2 ng/mL or greater followed by a subsequent confirmatoryPSA value 0.2 ng/mL or greater.Values obtained with d ifferent assay methods or kits cannot be usedinterchangeably. Results cannot be interpreted as absolute evidenceof the presence or absence of malignant disease. :06 TESTOSTERONE FREE (73626) Comments: PATIENT WAS FASTINGPERFORMED BY: MyNewFinancialAdvisorNewark Beth Israel Medical CenterXveqxc7818 [facility] [id number] BY: Lab[address] [id number] Free Testosterone(Direct) 13.7 pg/mL (Normal) Range: 7.2-24.0 :06 Uric Acid Blood (49401) Comments: PATIENT WAS FASTINGPERFORMED BY: MyNewFinancialAdvisorNewark Beth Israel Medical CenterBfekjk8745 [facility] [id number] BY: [address] [id number] Uric Acid, Serum 6.0 mg/dL (Normal) Range: 3.7-8.6 Comments: Therapeutic target for gout patients: <6.0 :49 HgA1C , Office (11122) HgA1C , Office 6.8 % (Normal) Range: 4.6 - 7.1 :49 Blood Glucose , Office (49109) Blood Glucose , Office 176 (Normal) :45 HgA1C , Office (70813) HgA1C , Office 11.5 % (Abnormal) Range: 4.6 - 7.1 Comments: not put in on -:01 HgA1C , Office (80910) HgA1C , Office 7.4 % (Abnormal) Range: 4.6 - 7.1 :01 Blood Glucose , Office (42828) Blood Glucose , Office 142 (Normal) 21-Xrq-715460:17 CBCMD RBCM NORM C+C {NORMAL} (Normal) PLTM [...] 4.6-6.2 WBC 9.3 K/mm3 (Normal) Range: 4.4-11.0 43-Ybs-001055:17 CMP GAP 6 (Normal) Range: 5-15 CO2 [...] performed using the TPSA assay method for thePlanetary Resources chemistry system. Values obtained with differentassay methods cannot be used interchangably.When ch anging PSA assays in the course of monitoring apatient, additional sequential testing should be carriedout to confirm baseline values. :17 TESTOF 11.1 pg/mL (Normal) Range: 6.8-21.5 Comments: Performed at: [address] [id number] Director: Elton Gallego MD, Phone: [phone] :[phone] URIC 4.4 mg/dL (Normal) Range: 3.5-7.2 :12 HgA1C , Office (45451) HgA1C , Office 7.2 % (Abnormal) Range: 4.6 - 7.1 :12 Blood Glucose , Office (84889) Blood Glucose , Office 113 (Normal) :01 [...] >240 mg/dL High Risk :37 TEST FR 980521 17.0 pg/mL (Normal) Comments: appt 01/04/12 Range: 6.8-21.5 Comments: Performed at: [facility] [address] [id number] Director: Dayanna Red MD, Phone: [phone] at: [employer] [place] [id number] Director: Elton Gallego MD, Phone: [phone] :[phone] VIT D,25 88044 39.6 ng/mL (Normal) Range: 30.0-100.0 Comments: Vitamin D deficiency has been defined by the [place] of[place]icine and an Endocrine Society practice guideline as alevel of serum 25-OH vitamin D less than 20 ng/mL (1,2).The Endocrine Society went on to further define vitamin Dinsufficiency as a level between 21 and 29 ng/mL (2).1. IOM ([place] of Medicine). 2011. Dietary reference intakes for calcium and D. [place]: The National Academies Press.2. Audra MF, Erin NC, Brittani CEDEÑO, et al. Evaluation, treatment, and prevention of vitamin D deficiency: an Endocrine Society clinical practice guideline. JCEM. 2010; 96(7):1911-30. 68-Bgh-327032:12 CBCD,SMEAR DIFF RED CELL MORPH SeeNote {NORMAL} [...] :09 FERRITIN 403 ng/mL (Abnormal) Range: 26-388 :09 LIPID VLDL 101 mg/dL (Abnormal) Range: 5-40 [...] 200 mg/dLsuggests DIABETES MELLITUS per A.D.A. criteria. 49-Ypb-844272:04 COMPLETE UA MUCUS, URINE 4+ {/hpf} (Normal) [...] (Normal) COLOR YELLOW (Normal) :53 TESTOSTERONE FREE (48781) Comments: PATIENT NOT FASTINGPERFORMED BY: Fitfully [address] [id number] Information: [id number]; appt 11/02/11 Free Testosterone(Direct) 4.3 pg/mL (Abnormal) Range: 6.8-21.5 :53 Ferritin (93840) Comments: PATIENT NOT FASTINGPERFORMED BY: Securant70 FantasyHubin [place] [id number] Ferritin, Serum 588 ng/mL (Abnormal) Range: 30-400 :53 CALCIFIDIOL (82264) VIT D Comments: PATIENT NOT FASTINGPERFORMED BY: Securant70 FantasyHubFormerly [facility] [id number] Information: [id number], 2ND ORDER NO DRAW FEE 25 Vitamin D, 25-Hydroxy 31.2 ng/mL (Normal) Range: 30.0-100.0 Comments: Vitamin D deficiency has been defined by the [place] of[place]icine and an Endocrine Society practice guideline as alevel of serum 25-OH vitamin D less than 20 ng/mL (1,2).The Endocrine Society went on to further define vitamin Dinsufficiency as a level between 21 and 29 ng/mL (2).1. IOM ([place]). 2011. Dietary reference intakes for calcium and D. [place]: The National Academies Press.2. Audra MF, Erin GRIFFITHS, Brittani CEDEÑO, et al. Evaluation, treatment, and prevention of vitamin D deficiency: an Endocrine Society clinical practice guideline. JCEM. 2010; 96(7): 1911-30. Please note reference interval change :00 Ferritin (79392) Comments: PERFORMED BY: [employer]fully [address] [id number] BY: Fulcrum MicrosystemsKindred Hospital [facility] [id number] Ferritin, Serum 862 ng/mL (Abnormal) Range: 30-400 57-Lne-59967:00 Vitamin B-12 (cyanocobalamin) Comments: PERFORMED BY: MyNewFinancialAdvisor[address] [id number] BY: MyNewFinancialAdvisor Dfhchy6163 Stroud Roadblin [place] [id number] (85794) Vitamin B12 467 pg/mL (Normal) Range: 211-946 39-Ecs-06531:00 CALCIFIDIOL (67244) VIT D Comments: PERFORMED BY: [employer] [address] [id number] BY: [employer]70 [address] [facility] [id number] 25 Vitamin D, 25-Hydroxy 7.6 ng/mL (Abnormal) Range: 32.0-100.0 Comments: Effective October 08, 2011 Vitamin D, 25-Hydroxy reference intervals will be changing to 30-100. .Recent studies consider the lower li ash of 32.0 ng/mL to be athreshold for optimal health.Alber WATTS. J Nutr. 2004;135(2):317-22. 17-Tbb-66729:00 TESTOSTERONE FREE (63746) Comments: PERFORMED BY: MyNewFinancialAdvisor[address] [id number] BY: MyNewFinancialAdvisor Uwvezi2089 [address] [facility] [id number] Free Testosterone(Direct) 3.1 pg/mL (Abnormal) Range: 6.8-21.5 :45 HgA1C , Office (38665) HgA1C , Office 6.8 % (Normal) Range: 4.6 - 7.1 :45 Blood Glucose , Office (25824) Blood Glucose , Office 132 (Normal) 00-Dpv-94502:00 FSH, Serum Comments: PERFORMED BY: MyNewFinancialAdvisor Hhtakb0722 [facility] [id number]; appt 09/21/11 FSH 4.1 m[iU]/mL (Normal) Range: 1.5-12.4 :00 Luteinizing Hormone(LH), S Comments: PERFORMED BY: PDC BiotechHenry Ford [facility] Hospital6370 [facility] [id number] LH 3.4 m[iU]/mL Range: 1.7-8.6 (Normal) Methylmalonic Acid, 165 nmol/L Comments: PERFORMED BY: [address] [id number] BY: [facility]6370 [facility] [id number] :00 Serum (Normal) Range: 73-376 Comments: The reference range for methylmalonic acid has been set at +3sd abovethe mean for healthy blood bank donors. In the clinical assessment ofpatients with megaloblastic anemias a cutoff of +3sd provides gr eaterspecificity in the diagnosis of the vitamin deficiency states,despite the sacrifice of some sensitivity. Written Authorization WAR (Normal) Comments: PERFORMED BY: [facility]6370 [facility] [id number] :00 Comments: Written Authorization Received.Authorization received from SAMINA GOMEZ [id number] by Kristen Neri :57 Microscopic Examination Comments: PATIENT WAS FASTINGPERFORMED BY: [facility]6370 [facility] [id number] Bacteria None seen (Normal) Cast Type Hyaline casts (Normal) Casts Present {/lpf} (Abnormal) Epithelial Cells (non renal) None seen {/hpf} (Normal) Range: 0 - 10 RBC 0-3 {/hpf} (Normal) Range: 0 - 3 WBC 0-5 {/hpf} (Normal) Range: 0 - 5 :57 Uric Acid Blood (77724) Comments: PATIENT WAS FASTINGPERFORMED BY: [facility]6370 [facility] [id number] Uric Acid, Serum 5.3 mg/dL (Normal) Range: 3.7-8.6 Comments: Therapeutic target for gout patients: <6.0 :57 URINALYSIS, W/ MICRO (39603) Comments: PATIENT WAS FASTINGPERFORMED BY: [employer] Rsmffe0983 [facility] [id number] Microscopic Examination See below: (Normal) Microscopic Examination MICRON (Normal) Comments: Microscopic follows if indicated. Nitrite, Urine Negative (Normal) Urobilinogen,Semi-Qn 0.2 mg/dL (Normal) Range: 0.0-1.9 Bilirubin Negative (Normal) Occult Blood Negative (Normal) Ketones Negative (Normal) Glucose Negative (Normal) Protein Negative (Normal) WBC Esterase Negative (Normal) Appearance Clear (Normal) Urine-Color Yellow (Normal) pH 6.5 (Normal) Range: 5.0-7.5 Specific [place] 1.024 (Normal) Range: 1.005-1.030 :57 METABOLIC PANEL, COMPREHENSIVE Comments: PATIENT WAS FASTINGPERFORMED BY: [employer]6370 [facility] [id number] (43735) ALT (SGPT) 24 [iU]/L (Normal) Range: 0-55 [...] mg/dL (Abnormal) Range: 65-99 :57 LIPID PANEL (52815) Comments: PATIENT WAS FASTINGPERFORMED BY: Lexpertia.comFormerly [facility] [id number] VLDL Cholesterol Tyrese VLDLCH mg/dL (Normal) Range: [...] MANUAL DIFF Comments: PATIENT WAS FASTINGPERFORMED BY: [employer]6370 FantasyHubFormerly [facility] [id number] Information: [id number]; appt 09/06/11 (48191) Immature Grans (Abs) 0.0 {x10E3/uL} (Normal) Range: [...] (Normal) Range: 4.0-10.5 :56 Uric Acid Blood (95848) Comments: PATIENT WAS FASTINGPERFORMED BY: eduplanet KK Swypbo4191 [facility] [id number] Uric Acid, Serum 5.0 mg/dL (Normal) Range: 3.7-8.6 Comments: Therapeutic target for gout patients: <6.0 :56 URINALYSIS, W/ MICRO (97820) Comments: PATIENT WAS FASTINGPERFORMED BY: Marketforce OneNewark Beth Israel Medical CenterAxmupa5484 [facility] [id number] Microscopic Examination See below: (Normal) Bilirubin Negative (Normal) Microscopic Examination MICRON (Normal) Comments: Microscopic follows if indicated. Nitrite, Urine Negative (Normal) Occult Blood Negative (Normal) Urobilinogen,Semi-Qn 0.2 mg/dL (Normal) Range: 0.0-1.9 Glucose Negative (Normal) Ketones Negative (Normal) Protein Negative (Normal) Appearance Clear (Normal) pH 6.5 (Normal) Range: 5.0-7.5 Urine-Color Yellow (Normal) WBC Esterase Negative (Normal) Specific [place] 1.020 (Normal) Range: 1.005-1.030 :56 METABOLIC PANEL, COMPREHENSIVE Comments: PATIENT WAS FASTINGPERFORMED BY: LabCoNewark Beth Israel Medical CenterEywvww5068 [facility] [id number] (68433) A/G Ratio 1.7 (Normal) Range: 1.1-2.5 Alkaline [...] mg/dL (Abnormal) Range: 65-99 :56 LIPID PANEL (82727) Comments: PATIENT WAS FASTINGPERFORMED BY: MyNewFinancialAdvisorNewark Beth Israel Medical CenterRhxbon5828 [facility] [id number] LDL/HDL Ratio 2.1 {ratio_units} (Normal) Range: 0.0-3.6 Cholesterol, Total 151 mg/dL (Normal) Range: 100-199 HDL Cholesterol 36 mg/dL (Abnormal) Comments: According to ATP-III Guidelines, HDL-C >59 mg/dL is considered anegative risk factor for CHD. LDL Cholesterol Calc 74 mg/dL (Normal) Range: 0-99 Triglycerides 206 mg/dL (Abnormal) Range: 0-149 VLDL Cholesterol Tyrese 41 mg/dL (Abnormal) Range: 5-40 19-Pnf-95853:56 CBC WITH MANUAL DIFF Comments: PATIENT WAS FASTINGPERFORMED BY: MyNewFinancialAdvisorNewark Beth Israel Medical CenterFjhaqa0294 [facility] [id number] Information: [id number], NO DRAW FEE 2ND OR NEIL (75547) Immature Grans (Abs) 0.0 {x10E3/uL} (Normal) Range: [...] Microscopic Examination Comments: PATIENT WAS FASTINGPERFORMED BY: LabCoNewark Beth Israel Medical CenterDdglwz1613 [facility] [id number] Bacteria Few (Normal) Mucus Threads Present (Normal) [...] of a clinically suspiciousabnormality. Dictated on 04/09/11 7824 by Hillary SILVA,GabrieleTranscribed on 04/09/11 0913 by ITS IMPORTSign by [...] is seen. Dictated on 04/09/11 0840 by Raj Thornton MDrieleTranscribed on 04/09/11 1029 by ITS IMPORTSign by Hood Thornton MD on 04/09/11 1030 Sign by: Hood Thornton MD 99-Cos-60858:54 TSH (02061) Comments: PATIENT WAS FASTINGPERFORMED BY: MyNewFinancialAdvisor Hppqwb0487 [facility] [id number] Information: [id number] TSH 2.330 {uIU/mL} (Normal) Range: 0.450-4.500 :54 PROLACTIN (55957) Comments: PATIENT WAS FASTINGPERFORMED BY: MyNewFinancialAdvisorRehoboth McKinley Christian Health Care ServicesHrmlid9875 [facility] [id number] Prolactin 14.7 ng/mL (Normal) Range: 4.0-15.2 :54 HCG (HUMAN CHORIONIC Comments: PATIENT WAS FASTINGPERFORMED BY: MyNewFinancialAdvisor Jelyaf2134 [facility] [id number] GONADOTROPIN) (80458) hCG,Beta Subunit,Qual,Serum Negative m[iU]/mL Comments: . Negative <6Qualitative HCG reference interval applies only for pregnancyevaluation. (Normal) :55 Blood Glucose , Office (55723) Blood Glucose , Office 105 (Normal) :55 HgA1C , Office (16136) HgA1C , Office 6.1 % (Normal) Range: 4.6 - 7.1 :35 PSA (PROSTATE SPECIFIC Comments: PATIENT NOT FASTINGPERFORMED BY: MyNewFinancialAdvisor Sftfkb2298 [facility] [id number] Information: [id number] ANTIGEN) (V76.44) Prostate Specific Ag, 1.0 ng/mL (Normal) Range: 0.0-4.0 Serum Comments: BeMyGuestIA methodology. .According to the [place] Urological Association, Serum PSA shoulddecrease and remain [...] Microscopic Examination Comments: PATIENT WAS FASTINGPERFORMED BY: MyNewFinancialAdvisor Mdgvua0701 [facility] [id number] Bacteria None seen (Normal) Epithelial Cells (non None seen {/hpf} Range: 0 - 10 renal) (Normal) RBC None seen {/hpf} Range: 0 - 3 (Normal) WBC 0-5 {/hpf} (Normal) Range: 0 - 5 C difficile Toxins Negative (Normal) Comments: PERFORMED BY: MyNewFinancialAdvisor Wnageh7467 [facility] [id number] 4:25 A+B, EIA 17-Npk-964759:25 Ova + Parasite Exam Comments: PERFORMED BY: MyNewFinancialAdvisor [employer] [facility] [id number] Result 1 NOCP (Normal) Comments: No ova, cysts, or parasites seen. Ova + Parasite Exam Final report (Normal) Comments: These results were obtained using wet preparation(s) and trichromestained smear. This test does not include testing for Cryptosporidiumparvum, Cyclospora, or Microsporidia. 98-Nqc-209124:25 Stool Culture Comments: PERFORMED BY: PDC BiotechNortheast Missouri Rural Health Network Hzjgkn7641 [facility] [id number] Information: SRC:ST E coli Shiga Toxin EIA Negative (Normal) Result 1 NCI (Normal) Comments: No Campylobacter species isolated. Campylobacter Culture Final report (Normal) Result 1 NSS (Normal) Comments: No Salmonella or Shigella recovered. Salmonella/Shigella Screen Final report (Normal) :43 URINALYSIS, W/ MICRO (79000) Comments: PATIENT WAS FASTINGPERFORMED BY: PDC BiotechHenry Ford [facility] Hospital6370 [facility] [id number] Microscopic Examination See below: (Normal) Bilirubin Negative (Normal) Glucose Negative (Normal) Ketones Negative (Normal) Microscopic Examination MICRON (Normal) Comments: Microscopic follows if indicated. Nitrite, Urine Negative (Normal) Occult Blood Negative (Normal) Urobilinogen,Semi-Qn 0.2 mg/dL (Normal) Range: 0.0-1.9 Appearance Clear (Normal) Protein Negative (Normal) Urine-Color Yellow (Normal) WBC Esterase Negative (Normal) pH 7.0 (Normal) Range: 5.0-7.5 Specific [place] 1.021 (Normal) Range: 1.005-1.030 :43 METABOLIC PANEL, COMPREHENSIVE Comments: PATIENT WAS FASTINGPERFORMED BY: [facility]6370 [facility] [id number] (56165) ALT (SGPT) 17 [iU]/L (Normal) Range: 0-55 [...] mg/dL (Abnormal) Range: 65-99 :43 LIPID PANEL (89562) Comments: PATIENT WAS FASTINGPERFORMED BY: [employer] [facility] [id number] LDL/HDL Ratio 2.0 {ratio_units} (Normal) Range: 0.0-3.6 [...] MANUAL DIFF Comments: PATIENT WAS FASTINGPERFORMED BY: Marketforce OneNewark Beth Israel Medical CenterUobpxj3462 [facility] [id number] Information: [id number] (16920) Baso (Absolute) 0.1 {x10E3/uL} (Normal) Range: 0.0-0.2 [...] Panel (7) Comments: PATIENT WAS FASTINGPERFORMED BY: LabCoNewark Beth Israel Medical CenterXbaoxm8366 [facility] [id number] Albumin, Serum 4.2 g/dL (Normal) Range: 3.5-5.5 Alkaline Phosphatase, S 40 [iU]/L (Normal) Range: 25-150 ALT (SGPT) 15 [iU]/L (Normal) Range: 0-55 AST (SGOT) 18 [iU]/L (Normal) Range: 0-40 Bilirubin, Direct 0.13 mg/dL (Normal) Range: 0.00-0.40 Bilirubin, Total 0.4 mg/dL (Normal) Range: 0.1-1.2 Protein, Total, Serum 6.2 g/dL (Normal) Range: 6.0-8.5 :11 Lipid Panel With LDL/HDL Comments: PATIENT WAS FASTINGPERFORMED BY: MyNewFinancialAdvisorRehoboth McKinley Christian Health Care ServicesGersnp0486 [facility] [id number] Ratio Cholesterol, Total 142 mg/dL (Normal) Range: 100-199 HDL Cholesterol 40 mg/dL (Normal) Comments: According to ATP-III Guidelines, HDL-C >59 mg/dL is considered anegative risk factor for CHD. LDL Cholesterol Calc 81 mg/dL (Normal) Range: 0-99 LDL/HDL Ratio 2.0 {ratio_units} (Normal) Range: 0.0-3.6 Triglycerides 103 mg/dL (Normal) Range: 0-149 VLDL Cholesterol Tyrese 21 mg/dL (Normal) Range: 5-40 02-Eiz-706699:30 CHEST, PA AND LATERAL ([place]) Radiology Report See Note (Normal) Comments: Exam Number: [id number] PA AND LATERAL CHEST CLINICAL INDICATIONChronic cough. The heart size and contour are within normal limits. The pulmonaryvascularity is normal. No infiltrate or effusion is seen . There isno evidence of a mass or adenopathy. The bony thorax appearsunremarkable. IMPRESSIONNormal chest. Reported By: KIA COLEY M.D. 65-Izd-456532:27 METABOLIC PANEL, COMPREHENSIVE Comments: PATIENT WAS FASTINGPERFORMED BY: MyNewFinancialAdvisorNewark Beth Israel Medical CenterRxeyox1021 [facility] [id number] (17174) A/G Ratio 1.7 (Normal) Range: 1.1-2.5 Albumin, [...] Sodium, Serum 145 mmol/L (Normal) Range: 135-145 23-Nuz-638251:27 LIPID PANEL (52026) Comments: PATIENT WAS FASTINGPERFORMED BY: [facility] Omgjkv6005 [facility] [id number] Cholesterol, Total 164 mg/dL (Normal) Range: 100-199 [...] Cholesterol Tyrese 27 mg/dL (Normal) Range: 5-40 36-Acj-481217:27 CBC WITH MANUAL DIFF (54607) Comments: PATIENT WAS FASTINGClinical Information: ADD DRAW FEE [id number] ADD J 98208 PERFORMED BY: DONA Missionly Iidnsz3002 [facility] [id number] Baso (Absolute) 0.0 {x10E3/uL} (Normal) Range: 0.0-0.2 [...] (Normal) Range: 4.0-10.5 :37 HgA1C , Office (32029) Comments: done>Wf. HgA1C , Office 5.5 % (Normal) Range: 4.6 - 7.1 :37 Blood Glucose , Office (54713) Comments: done>Wf. Blood Glucose , Office 103 (Normal) :44 Renal Panel (10) Comments: PERFORMED BY: eduplanet KK Ecloea3853 [facility] [id number] Albumin, Serum 4.2 g/dL (Normal) Range: 3.5-5.5 [...] Sodium, Serum 144 mmol/L (Normal) Range: 135-145 12-Lwi-89317:22 Renal function Panel (88537) Comments: PATIENT NOT FASTINGClinical Information: ADD DRAW FEE [id number] ADD J 54516 PERFORMED BY: eduplanet KK Ptjvoj9533 [facility] [id number] Albumin, Serum 4.4 g/dL (Normal) Range: 3.5-5.5 [...] (Normal) Range: 135-145 :03 HgA1C , Office (59864) HgA1C , Office 5.6 % (Normal) Range: 4.6 - 7.1 :03 Blood Glucose , Office (41114) Blood Glucose , Office 96 (Normal) 9-Mhb-345474:43 Hemoglobin Glyclated (HGB A1C) Comments: PATIENT WAS FASTINGPERFORMED BY: [employer] [place] [id number] (46124) Hemoglobin A1c 5.8 % (Normal) Comments: Diabetic Adult <7.0 Healthy Adult 4.8 - 5.9 (DCCT/NGSP) [place] Diabete s Association's Summary of Glycemic Recommendations for Adults with Diabetes: Hemoglobin A1c <7.0%. More stringent glycemic goals (A1c <6.0%) may furth er reduce complications at the cost of increased risk of hypoglycemia. 2-Exq-470260:43 METABOLIC PANEL, COMPREHENSIVE Comments: PATIENT WAS FASTINGClinical Information: ADD DRAW FEE [id number] ADD J 51457 PERFORMED BY: Lexpertia.comFormerly [facility] [id number] (66751) A/G Ratio 1.6 (Normal) Range: 1.1-2.5 Albumin, [...] Serum 101 mg/dL (Abnormal) Range: 65-99 If -[place]an >59 mL/min/1.73 Comments: Note: Persistent reduction for [...] Sodium, Serum 142 mmol/L (Normal) Range: 135-145 5-Yqb-690441:43 LIPID PANEL (05852) Comments: PATIENT WAS FASTINGPERFORMED BY: LabCoNewark Beth Israel Medical CenterYodwmv6808 [facility] [id number] Cholesterol, Total 170 mg/dL (Normal) Range: 100-199 [...] Cholesterol Tyrese 31 mg/dL (Normal) Range: 5-40 77-Hnr-762025:07 CBCD,SMEAR DIFF CELLS COUNTED 100 (Normal) HCT [...] 47-70 WBC 9.4 K/mm3 (Normal) Range: 4.4-11.0 :07 COMP METABOLIC A/G 1.2 {RATIO} (Normal) Range: [...] was performed using the TPSA method for thePlanetary Resources chemistry system.Values obtained with different assay methods cannot be usedinterchangably.When changing PSA assays in the course of monito ring apatient, additional sequential testing should be carriedout to confirm baseline values. 09-Dmg-[id number]:31 COMP METABOLIC A/G 1.3 {RATIO} (Normal) Range: [...] was performed using the TPSA method for the[employer] [place] chemistry system.Values obtained with different assay methods cannot be usedinterchangably.When changing PSA assays in the course of monito ring apatient, additionaly sequential testing should be carriedout to confirm baseline values. :18 Blood Glucose , Office (46499) Blood Glucose , Office 124 (Normal) :18 HgA1C , Office (73080) HgA1C , Office 5.3 % (Normal) Range: [...] IN 6 MONTHS Indication: Hypercholesterolemia Planned Observations Hemoglobin Glyclated (HGB A1C) (16087)Indication: Diabetes mellitus type II, controlled, with no complications On: 27-Vtb-134186:35 Request CBC WITH MANUAL DIFF ([id number])Indication: Hypertension On: :34 Request Lipid Panel ([id number])Indication: Hypercholesterolemia On: :34 Request Metabolic Panel, Comprehensive ([id number])Indication: Hypertension On: 26-Ycc-520819:34 Request MICROALBUMIN: CREATININE RATIO ([id number]) AND ([id number])Indication: Hypertension On: :34 Request URINALYSIS ([id number])Indication: Hypertension On: :34 Request Metabolic Panel, Basic ([id number])Indication: Hypertension On: 73-Rtq-53604:02 Request Comments: re check in 2 weeks HGB A1C (88617)Indication: Impaired fasting glucose On: 34-Ssv-837548:39 Request Comments: check prior to June apt Renal function Panel ([id number])Indication: Cardiomyopathy, unspecified type On: 6-Lsz-831293:52 Request CALCIFEDIOL ([id number])Indication: Hypertension On: 80-Gxs-968064:21 Request TSH (THYROID STIMULATING HORMONE) ([id number])Indication: Hypertension On: 82-Loa-211652:21 Request LIPID PANEL ([id number])Indication: Hypertension On: 28-Zxi-122083:20 Request METABOLIC PANEL, COMPREHENSIVE ([id number])Indication: Hypertension On: 69-Soc-184979:20 Request CBC, PLATELETS & AUT DIFF ([id number])Indication: Hypertension On: 42-Qri-933584:20 Request IRON ([id number])Indication: Abnormal blood finding On: 02-Cwk-20365:25 Request PSA (PROSTATE SPECIFIC ANTIGEN) (V76.44)Indication: Encounter for health maintenance examination with abnormal findings On: 62-Mcx-397775:48 Request Ferritin ([id number])Indication: Abnormal blood chemistry On: :48 Request TESTOSTERONE FREE ([id number])Indication: Testosterone deficiency On: :48 Request Uric Acid Blood (06807)Indication: Gout, renal disease On: :48 Request MICROALBUMIN: CREATININE RATIO (06066) AND ([id number])Indication: Diabetes mellitus type II, controlled, with no complications On: :48 Request METABOLIC PANEL, COMPREHENSIVE ([id number])Indication: Diabetes mellitus type II, controlled, with no complications On: :48 Request LIPID PANEL ([id number])Indication: Diabetes mellitus type II, controlled, with no complications On: :48 Request CBC WITH MANUAL DIFF ([id number])Indication: Diabetes mellitus type II, controlled, with no complications On: :48 Request LIPID PANEL ([id number])Indication: Hypercholesterolemia On: :23 Request Ferritin ([id number])Indication: Abnormal blood chemistry On: :38 Request TESTOSTERONE FREE ([id number])Indication: Testosterone deficiency On: :37 Request CALCIFIDIOL (29022) VIT D 25Indication: Vitamin D deficiency, unspecified On: :37 Request URINALYSIS, W/ MICRO ([id number])Indication: Hypertension On: :37 Request METABOLIC PANEL, COMPREHENSIVE (84362)Indication: Hypertension On: :37 Request LIPID PANEL ([id number])Indication: Hypertension On: :37 Request CBC WITH MANUAL DIFF ([id number])Indication: Hypertension On: :37 Request Methylmalonic acid, serum 60892Yaeljisdow: Fatigue On: :20 Request Renal function Panel ([id number])Indication: Hyperpotassemia On: :05 Request Metabolic Panel, Comprehensive ([id number])Indication: Hypercholesterolemia On: :26 Request Lipid Panel ([id number])Indication: Hypercholesterolemia On: :26 Request Comments: in six months (approximately) METABOLIC PANEL, COMPREHENSIVE ([id number])Indication: Hypertension On: :29 Request LIPID PANEL ([id number])Indication: Hypertension On: :29 Request CBC WITH MANUAL DIFF ([id number])Indication: Hypertension On: :29 Request Comments: in six months (approximately) Metabolic Panel, Comprehensive ([id number])Indication: Hypercholesterolemia On: :07 Request Lipid Panel ([id number])Indication: Hypercholesterolemia On: :07 Request Comments: in three months PSA (PROSTATE SPECIFIC ANTIGEN) (56399)Indication: Encounter for health maintenance examination with abnormal findings On: :09 Request HEPATIC FUNCTION PANEL ([id number])Indication: Hypercholesterolemia On: :09 Request LIPID PANEL ([id number])Indication: Hypercholesterolemia On: :09 Request Planned Encounters Medical; MARTIN 3 Month FU - On: 07-Nov-2018 9:00 [facility] Juma SILVA, Samina Hernandez MD Planned Procedures TDAP VACCINE >7 IM ([id number])By: On: 31-Mar-2018 Intent Juma SILVA, Samina Gomez MD, Comments: lot: [id number]: 04/16/20ite/route: L del/IMamt: 0.5mLVIS signed when applicableOLU Howe Holter Monitor 24 hrsBy: Juma On: 09-Dec-2017 Intent Samina SILVA MD, Dana M Echo CompleteBy: Juma SILVA, On: 07-Nov-2017 Intent Samina Hernandez MD Echo CompleteBy: Juma SILVA, On: 28-Jan-2017 Intent Samina Hernandez MD Comments: February 12 at 1pm go to ground floor registration Echo CompleteBy: Juma SILVA, On: 28-Jan-2017 Intent Samina Gomez MD, Samina Edwards IMMUNIZ ADMNIN, 1 VAC, On: 05-Aug-2015 Intent SNGL/COMBO ([id number])By: Juma SILVA, Saimna Gomez MD, Samina Edwards FLU VAC, SPLIT, >3 YEARS, On: 05-Aug-2015 Intent INTRAMUSC ([id number])By: Juma SILVA, Samina Samina Johnson MD Nuclear Medicine - OtherBy: On: 05-Aug-2015 Intent Juma SILVA, Samina Gomez MD, Comments: heptospleen scan Samina Edwards ESOPHOGRAM ([id number])By: Juma On: 08-Dec-2014 Intent Samina SILVA MD, Dana M Comments: 12mm IMMUNIZ ADMNIN, 1 VAC, On: 02-Sep-2014 Intent SNGL/COMBO ([id number])By: Samina Gomez MD, MD, Dana M FLU VAC, SPLIT, >3 YEARS, On: 02-Sep-2014 Intent INTRAMUSC ([id number])By: Samina Gomez MD, MD, Dana M Nuclear Stress Test/Stress On: 03-May-2014 Intent SPECT/TreadmillBy: Samina Gomez MD, MD, Dana M CT - Cardiac CTABy: Juma SILVA, On: 30-Apr-2014 Intent Samina Hernandez MD EKG ([id number])By: Samina Gomez MD On: 29-Apr-2014 Intent Samina Johnson MD Comments: see scanned document of test done to see results reviewed today with patient Nuclear Stress Test/Stress On: 29-Apr-2014 Intent SPECT/AdenosineBy: Samina Gomez MD, MD, Dana M Aerosol Treatment ([id number])By: On: 15-Jan-2014 Intent Samina Gomez MD, MD, Dana M Eprescribed prescriptions On: 15-Jan-2014 Intent ([id number])By: Samina Gomez MD, MD, Dana M FLU VAC, SPLIT, >3 YEARS, On: 06-Nov-2013 Intent INTRAMUSC ([id number])By: Ousmane, Comments: Lot:[id number]:Dose:0.5mLRoute:IMSite:L DltdGiven By:RADHA signed Estephanie IMMUNIZ ADMNIN, 1 VAC, On: 06-Nov-2013 Intent SNGL/COMBO ([id number])By: Estephanie Romeo Eprescribed prescriptions On: 16-Jul-2013 Intent (G8553)By: Savanna Ramírez LPN L Aerosol Treatment ([id number])By: On: 08-Jan-2013 Intent Samina Gomez MD, MD, Samina Edwards Eprescribed prescriptions On: 08-Jan-2013 Intent ([id number])By: Savanna Ramírez LPN L IMMUNIZ ADMNIN, 1 VAC, On: 21-Aug-2012 Intent SNGL/COMBO ([id number])By: Darrell ALMANZA, Comments: Lot #[id number]-L dltd, IMDose prefilled syringegiven by carlita NEGRETE signed Savanna L FLU VAC, SPLIT, >3 YEARS, On: 21-Aug-2012 Intent INTRAMUSC ([id number])By: Savanna Ramírez LPN L IMMUNIZATION ADMIN ([id number])By: On: 06-Sep-2011 Intent Samina Gomez MD, MD, Dana M FLU VACCINE H1N1 ([id number])By: On: 06-Sep-2011 Intent Samina Gomez MD, MD, Dana M FLU VAC, SPLIT, >3 YEARS, On: 06-Nov-2010 Intent INTRAMUSC ([id number])By: Juma SILVA, Comments: Lot #[id number]-L arm, IMDose0.5mlgiven by: Samina Hernandez MD IMMUNIZ ADMNIN, 1 VAC, On: 06-Nov-2010 Intent SNGL/COMBO ([id number])By: Samina Gomez MD, MD, Dana M EKG ([id number])By: Samina Gomez MD On: 06-Nov-2010 Intent aSmina Johnson MD Spirometry ([id number])By: Juma On: 04-Nov-2009 Intent Samina SILVA MD, Dana M Pulse Oximetry ([id number])By: On: 04-Nov-2009 Intent MIKKI De La Cruz IMMUNIZ ADMNIN, 1 VAC, On: 08-Sep-2009 Intent SNGL/COMBO ([id number])By: Lisy Otero RN FLU VAC, SPLIT, >3 YEARS, On: 08-Sep-2009 Intent INTRAMUSC ([id number])By: Shanna RN, Comments: Lot #: [id number] date: mount given: 0.5 mlRoute: IMSite given: left deltoidGiven by: ARCHIE Mcmillan Radiology - ChestBy: Juma SILVA, On: 07-Jul-2009 Intent Samina Hernandez MD Pulse Oximetry ([id number])By: On: 07-Jul-2009 Intent MIKKI De La Cruz Spirometry (38789)By: Garrett On: 31-Mar-2009 Intent Mamie BUI Comments: done BC Inhaler Demonstration On: 31-Mar-2009 Intent ([id number])By: Mamie Tucker CNP Comments: done BCdemonstrates understanding, inhaler demo handout given to supplement instructions Pulse Oximetry ([id number])By: Garrett On: 31-Mar-2009 Intent Mamie BUI Comments: done BC Aerosol Treatment ([id number])By: On: 31-Mar-2009 Intent Mamie Tucker CNP Comments: done BC EKG ([id number])By: Samina Gomez MD On: 29-Oct-2008 Intent Samina Johnson MD EKG ([id number])By: Samina Gomez MD On: 09-Oct-2006 Intent Samina [...] inoculation against influenza Encounters Lab Order On: 14-Oct-2018 12:30 Encounter Diagnosis: Hypertension, Hypercholesterolemia, Diabetes mellitus type II, controlled, with no complications End: 14-Oct-2018 12:35 [facility] Lab Order On: 11-Aug-2018 9:01 Encounter Diagnosis: [...] colonoscopy (never has had one) and PSA (5-14-18).Encounter Diagnosis: Tobacco use, Chronic GERD, Bipolar 1 [...] for Tdap vaccination (Renamed from Need for akfrhfpzog-nxhuqec-fbuxquydy (Tdap) vaccine, adult/a dolescent) [facility] [...] Nutrition: balanced diet and supplemental vitamins. 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
--- OUTSIDE RECORDS SUMMARY | 2019-02-06 03:54 | XMS RPT_ITS | Continuity of Care Document ---
:1960 Author Organization [facility] Address [address] [place] [address] Phone Care Team Providers Name Role Phone Samina Gomez MD Unavailable Kenisha , Dr. Terrell Unavailable [facility] Unavailable Ronaldo German Jr Unavailable Samina [...] Comments: cardioverted X2 May 15 2014.Seeing rolando. xx9sxof seen him last saw on jul 2017 [...] for Tdap vaccination (Renamed from Need for btkztkogic-ainquco-wupjcsawz (Tdap) vaccine, adult/adolescent) (Z23, V06.1) Status: Active [...] Dana M Start : 04-Mar-2017 Active Ergocalciferol 69855 UNIT Oral Capsule 1 Capsule q month [...] Quantity: 90 {Tablet} Refills: 3 Ordered:05-May-2015 Long FINISHING TRIMMER, Savanna L Start : 16-Mar-2014 End : 05-May-2015 Inactive FENOFIBRATE, 160MG (Oral Tablet) 1 Tablet qd for 0 days Quantity: 90 {Tablet} Refills: 3 Ordered:05-May-2015 Long FINISHING TRIMMER, Savanna L Start : 16-Mar-2014 End : [...] Quantity: 20 {Tablet} Refills: 0 Ordered:06-Nov-2010 Darrell FINISHING TRIMMER, Savanna L Start : 31-Jan-2010 End : [...] Lead Electrocardiogram Result: Comments: See Note; NOTES: [facility] Cardiovascular Services [address] [place] [address] 12 Lead EKG 08/20/18 1825 MR#: [id number] Acct: [id number] Name: VISHAL BAILEY Rep #: [id number] : 1960 57 From: Ken Ortiz MD [...] ECG Confirmed by MUNA SILVA, KEN ([id number]), dictionary editor MATTI DOBSON (56) on 08/25/2018 3:13:27 PM Referred By: ACOSTA/KAVON Confirmed By:KEN ORTIZ MD 08/25/18 1513 Date _ Ken Ortiz MD CC: Samina Gomez MD; Jovani Green MD Signed 21-Aug-2018 Discharge Instruction Result: Comments: See Note; NOTES: [facility] Medical Records Department [address] [place] [address] Discharge Instruction 08/20/181927 MR#: [id number] Acct: [id number] Name: DO SHELLY BAILEY Rep #: [id number] : 1960 57 From: Jovani Green MD [...] your Primary Care Provider. Call [facility] ([phone]) or report to the closest Emergency Room. Call 911 if necessary. 08/21/18 0030 <Electronically signed by Jovani Green MD> Date Jovani Green MD Cosigner Signature (If Indicat ed): Date CC: Samina Gomez MD 21-Aug-2018 Emergency Department Summary Result: Comments: See Note; NOTES: [facility] Medical Records Department [address] [place] [address] Emergency Department Summary 08/20/18 1858 MR#: [id number] Acct: [id number] Name: VISHAL BAILEY Rep #: [id number] : 1960 57 From: Jovani Green MD [...] your Primary Care Provider. Call [facility] ([phone]) or report to the closest Emergency Room. Call 911 if necessary. 08/21/18 0030 <Electronically signed by Jovani Fitzgerald> Date Jovani Green MD Cosigner Signature (If Indicated): Date CC: Samina Gomez MD 20-Aug-2018 Chest 1 View (Portable) Result: Comments: See Note; NOTES: [facility] Imaging Services [address] [place] [address] Chest 1 View (Portable) MR#: [id number] Acct: [id number] Name: VISHAL BAILEY Rep #: [id number] : 1960 M 57 From: Iris Dobson MD PCP: Samina Gomez MD Status: PRE ER Study: Chest 1 View (Portable) Date of Exam: 08/20/18 Exam# [id number] Ordering Dr: Jovani Green MD STUDY: X-RAY [...] CC: Samina Gomez MD; Jovani Green MD Ext Js Developer: Signed 09-Apr-2018 Cardiology Visit Report Result: Comments: See Note; NOTES: [address] [place] [address] OFFICE VISIT Date of Service: 04/09/18 MR#: [id number] Acct: [id number] Name: VISHAL BAILEY ep #: [id number] : 1960 Provider: MARCK Ospina Age/Sex: 57/M [place] [facility] [place] Status: Signed HPI HPI Details: VISHAL BAILEY, is a 57 M who presents to the office today for a cardiovascular out patient follow-up. He has a history of atrial flutter with cardioversion in 2013, cardiomyopathy, hypertension, hyperlipidemia, diabetes mellitus, and obesity. 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: No Accompanied by: None Is patient [...] to 54 (50% per echo 11/27/2017 [facility] Medical History Paroxysmal atrial flutter (Chronic) Systolic [...] Lead Electrocardiogram Result: Comments: See Note; NOTES: [facility] Cardiovascular Services [address] [place] [address] 12 Lead EKG 02/15/18 0831 MR#: [id number] Acct: [id number] Name: VISHAL BAILEY Giovanni Rep #: [id number] : 1960 57 From: Ken Ortiz MD [...] ECG Confirmed by MUNA SILVA, KEN ([id number]), dictionary editor MATTI DOBSON (56) on 02/17/2018 1:57:55 PM Referred By: ARIELLE Confirmed By:KEN ORTIZ MD 02/17/18 1358 Date Ken Ortiz MD CC: Samina Gomez MD; Abhijit Lea MD; Celia Khanna MD Signed 17-Feb-2018 12 Lead Electrocardiogram Result: Comments: See Note; NOTES: [facility] Cardiovascular Services [address] [place] [address] 12 Lead EKG 02/15/18 1002 MR#: [id number] Acct: [id number] Name: VISHAL BAILEY Rep #: [id number] : 1960 57 From: Ken Ortiz MD [...] ECG Confirmed by MUNA SILVA, KEN (1080), dictionary editor MATTI DOBSON (56) on 02/17/2018 1:38:59 PM Referred By: MINERVA Confirmed By:KEN ORTIZ MD 02/17/18 1339 Date Ken Ortiz MD CC: Samina Gomze MD; Abhijit Lea MD Signed 17-Feb-2018 12 Lead Electrocardiogram Result: Comments: See Note; NOTES: [facility] Cardiovascular Services [address] [place] [address] 12 Lead EKG 02/15/18 0902 MR#: [id number] Acct: [id number] Name: VISHAL BAILEY R Rep #: [id number] : 1960 57 From: Ken Ortiz MD [...] Confirmed by OF KEN SALGADO MD ([id number]), dictionary editor MATTI DOBSON (56) on 02/17/2018 1:39:12 PM Referred By: MINERVA Confirmed By:KEN ORTIZ MD 02/17/18 1339 Date Ken Fitzgerald CC: Samina Gomez MD; Abhijit Lea MD Signed 15-Feb-2018 Discharge Instruction Result: Comments: See Note; NOTES: [facility] Medical Records Department [address] [place] [address] Discharge Instruction 02/15/18 1015 MR#: [id number] Acct: [id number] Name: DO SHELLY BAILEY R Rep #: [id number] : 1960 57 From: Abhijit Lea MD [...] your Primary Care Provider. Call [facility] ([phone]) or report to the closest Emergency Room. Call 911 if necessary. 02/15/18 1706 <Electronically signed by Abhijit Lea MD> Date Abhijit Lea MD Co signer Signature (If Indicated): Date CC: Samina Gomez MD 15-Feb-2018 Emergency Department Summary Result: Comments: See Note; NOTES: [facility] Medical Records Department [address] [place] [address] Emergency Department Summary 02/15/18 0928 MR#: [id number] Acct: [id number] Name: VISHAL BAILEY Rep #: [id number] : 1960 57 From: Abhijit Lea MD [...] Atrial flutter This note was generated with Fanzo dictation software. It may contain incorrect words, [...] problems, contact your Primary Care Provider. Call [facility] ([phone]) or repor t to the closest Emergency Room. Call 911 if necessary. 02/15/18 7401 <Electronically signed by Abhijit Lea MD> Date Abhijit Lea MD Cosigner Signature (If Indicated): Date CC: Samina Gomez MD 15-Feb-2018 Chest 1 View (Portable) Result: Comments: See Note; NOTES: [facility] Imaging Services [address] [facility] [address] Chest 1 View (Portable) MR#: [id number] Acct: [id number] Name: VISHAL BAILEY Rep #: [id number] : 1960 M 57 From: Anthony Guzman MD PCP: Samina Gomez MD Status: REG ER Study: Chest 1 View (Portable) Date of Exam: 02/15/18 Exam# [id number] Ordering Dr: Abhijit Lea MD STUDY: X-RAY [...] CC: Samina Gomez MD; Abhijit Lea MD Ext Js Developer: Signed 09-Dec-2017 12 Lead Electrocardiogram Result: Comments: See Note; NOTES: [facility] Cardiovascular Services [address] [place] [address] 12 Lead EKG 12/07/171917 MR#: [id number] Acct: [id number] Name: VISHAL BAILEY R Rep #: [id number] : 1960 57 From: Stiven Goldman MD [...] : 439 ms Normal sinus rhythm Septal CO, age undetermined , cannot be excluded Confirmed by CAMERON SILVA, STIVEN ([id number]), dictionary editor MATTI DOBSON (56) on 12/09/2017 1:21:21 PM Referred By: ACOSTA Confirmed By:STIVEN GOLDMAN MD 12/09/17 1321 Date Stiven Goldman MD CC: Samina Gomez MD Signed 07-Dec-2017 Discharge Instruction Result: Comments: See Note; NOTES: [facility] Medical Records Department [address] [place] [address] Discharge Instruction 12/07/172120 MR#: [id number] Acct: [id number] Name: DO SHELLY BAILEY R Rep #: [id number] : 1960 57 From: Jovani Green MD [...] your Primary Care Provider. Call [facility] ([phone]) or report to the closest Emergency Room. Call 911 if necessary. 12/07/170 <Electron ically signed by Jovani Green MD> Date Jovani Green MD Cosigner Signature (If Indicated): Date CC: Samina Gomez MD 07-Dec-2017 Emergency Department Summary Result: Comments: See Note; NOTES: [facility] Medical Records Department [address] [place] [address] Emergency Department Summary 12/07/171942 MR#: [id number] Acct: [id number] Name: VISHAL BAILEY Rep #: [id number] : 1960 57 From: Jovani Green MD [...] atrial flutter This note was generated with Fanzo dictation software. It may contain incorrect words, [...] Emergency Room. Call 911 if necessary. 12/07/17 1083 <Electronically signed by Jovani Green MD> Date _ Jovani Green MD Cosigner Signature (If Indicated): Date CC: Samina Gomez MD 07-Dec-2017 Chest 1 View (Portable) Result: Comments: See Note; NOTES: [facility] Imaging Services [address] [place] [address] Chest 1 View (Portable) MR#: [id number] Acct: [id number] Name: VISHAL BAILEY Giovanni Rep #: [id number] : 1960 M 57 From: Andrew Abraham MD PCP: Samina Gomez MD Status: DEP ER Study: Chest 1 View (Portable) Date of Exam: 12/07/17 Exam# [id number] Ordering Dr: Jovani Green MD STUDY: X-RAY [...] CC: Samina Gomez MD; Jovani Green MD Ext Js Developer: Signed 27-Nov-2017 Echocardiogram Complete Result: Comments: See Note; NOTES: [facility] Cardiovascular Services [address] [place] [address] Echo Complete 11/27/17 0951 MR#: [id number] Acct: [id number] Name: VISHAL BAILEY #: [id number] : 1960 57 From: Stiven Goldman MD Attending Dr: Samina Gomez MD Status: REG CLI Ordering Dr: Samina Gomez MD Date: 11/27/17 Location: [facility] Sex: M C Admitted: Reason For Stud [...] MD Date Dictated: 11/27/1751 Date Transcribed: 11/27/171804 Ext Js Developer: Signed 15-Feb-2017 Echocardiogram Complete Result: Comments: See Note; NOTES: [facility] Cardiovascular Services [address] [place] [address] Echo Complete 02/15/1753 MR#: [id number] Acct: [id number] Name: VISHAL BAILEY p #: [id number] : 1960 56 From: eKn Ortiz MD Attending Dr: Samina Gomez MD Status: REG CLI Ordering Dr: Samina Gomez MD Date: 02/15/17 Location: [facility] Sex: M C Admitted: Reason For Study: [...] Dictated: 02/15/17 0953 Date Transcribed: 02/15/17 1422 Ext Js Developer: Signed 16-Dec-2014 Esophagus Only Result: Comments: See Note; NOTES: [facility] Imaging Services [address] [place] [address] Radiology Report MR#: [id number] Acct: [id number] Name: VISHAL BAILEY Rep #: [id number] : 1960 M 54 From: Hood Thornton MD PCP: Samina Gomez MD Status: REG CLI Study: Esophagus Only Date of Exam: 12/16/14 Exam# [id number] Ordering Dr: Samina Gomez MD STUDY: X-RAY [...] Hood Thornton MD at 8:59 EST Tel [phone], Service [place] pport [phone], CC: Samina Gomez MD Ext Js Developer: Signed 23-Sep-2014 Abdomen WITH IV Contrast Result: Comments: See Note; NOTES: [facility] Imaging Services [address] [facility] [place] [address] CAT Scan Report MR#: [id number] Acct: [id number] Name: VISHAL BAILEY Rep #: [id number] : 1960 M 53 From: Hood Thornton MD PCP: Samina Gomez MD Status: REG CLI Study: Abdomen WITH IV Contrast Date of Exam: 09/23/14 Exam# [id number] Ordering Dr: Xander De MD [facility]: CT ABDOMEN WITH CONTRAST REASON FOR EXAM: [...] Hood Thornton MD at 11:45 EST Tel [phone], Service support [phone], CC: Samina Gomez MD; Xander De Ext Js Developer: Signed Immunization Name Dates Details Influenza (3 years and up) on: 08-Sep-2009 Comments: Lot #: [id number] date: mount given: 0.5 mlRoute: IMSite [...] Status: Active Current Work/Study Status Comments: 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 [place], [place], [id number] GAP 10 (Normal) Range: 5-15 CO2 27.0 [...] A.D.A. criteria.Please note revised GLUCOSE reference range txhshfyrt70/02/2018. 2-Fis-197979:31 CBC W/Diff, Automated Comments: [facility] [address] [place], [place], [address] Absolute Lymph 2.67 {X10_3/ul} (Normal) Range: 0.83-4.51 [...] 4.6-6.2 WBC 9.7 K/mm3 (Normal) Range: 4.4-11.0 1-Zlh-082863:31 Troponin-I Comments: [facility] [address] [place], [address] TROPONIN-I < 0.015 ng/mL (Normal) Comments: TROPONIN-I EXPECTED VALUES <0.045 Negative 0.045 - 0.590 Consistent with Cardiac Damage > OR = 0.600 Critical Value Not every elevated troponin is indicative of CO. T hesevalues should be used with clinical judgement in examiningthe patient's clinical picture for diagnosis. To establisha diagnosis of CO versus myocardial injury, there must be ademonstrated rise and/ or fall in the troponin values, inaddition to ischemic symptoms, EKG changes, new regionalwall motion abnormality, and/or angiographical evidence. PLEASE NOTE: REFERENCE RANGES EDITED 03/31/1828-Jul-201801-Aao-321307:19 HGB A1C (42198) Comments: PATIENT NOT FASTINGPERFORMED BY: [facility] [id number] Hemoglobin A1c 5.8 % (Abnormal) Range: 4.8-5.6 Comments: . Prediabetes: 5.7 - 6.4 Diabetes: >6.4 Glycemic control for adults with diabetes: <7.0 91-Fjz-669163:19 TSH (29930) Comments: PATIENT NOT FASTINGPERFORMED BY: [facility] [facility] [id number] TSH 3.030 {uIU/mL} (Normal) Range: 0.450-4.500 40-Woj-957193:19 CBC, Platelets & Auto Diff Comments: PATIENT NOT FASTINGPERFORMED BY: [facility] [facility] [id number] (34281) Immature Grans (Abs) 0.0 {x10E3/uL} (Normal) Range: [...] 4.14-5.80 WBC 11.1 {x10E3/uL} (Abnormal) Range: 3.4-10.8 93-Vfe-957077:19 Metabolic Panel, Comprehensive Comments: PATIENT NOT FASTINGPERFORMED BY: [facility] CampusPwnxvg0958 [facility] [id number] (38472) ALT (SGPT) 37 [iU]/L (Normal) Range: 0-44 [...] 6-24 Glucose 131 mg/dL (Abnormal) Range: 65-99 51-Inj-674911:59 PSA (Prostate Specific Comments: PATIENT NOT FASTINGPERFORMED BY: [facility] CampusFmcddd6548 [facility] [id number] Antigen), Screening (24898) Prostate Specific Ag, 1.2 ng/mL (Normal) Range: 0.0-4.0 Serum Comments: Yany ECLIA methodology. .According to the [employer], Serum PSA shoulddecrease and remain [...] CREATININE RATIO Comments: PATIENT NOT FASTINGPERFORMED BY: [facility] [id number] (76490) AND (63612) Alb/Creat Ratio 1.6 {mg/g_creat} (Normal) Range: 0.0-30.0 Albumin, Urine 3.1 ug/mL (Normal) Creatinine, Urine 193.0 mg/dL (Normal) :21 URINALYSIS (80480) Comments: PATIENT NOT FASTINGPERFORMED BY: [facility]6370 FP [facility] [id number] Microscopic Examination MICNIP (Normal) Comments: Microscopic not indicated and not performed. Nitrite, Urine Negative (Normal) Urobilinogen,Semi-Qn 0.2 mg/dL (Normal) Range: 0.2-1.0 Bilirubin Negative (Normal) Occult Blood Negative (Normal) Ketones Negative (Normal) Glucose Negative (Normal) Protein Negative (Normal) WBC Esterase Negative (Normal) Appearance Clear (Normal) Urine-Color Yellow (Normal) pH 5.0 (Normal) Range: 5.0-7.5 Specific [place] 1.025 (Normal) Range: 1.005-1.030 :21 CBC WITH MANUAL DIFF Comments: PATIENT NOT FASTINGPERFORMED BY: [facility] [id number] Information: NURSE DRAW (86448) Immature Grans (Abs) 0.0 {x10E3/uL} (Normal) Range: [...] Panel, Comprehensive Comments: PATIENT NOT FASTINGPERFORMED BY: [facility] CampusStgizd0882 [facility] [id number]; appt 03/31 (55817) ALT (SGPT) 34 [iU]/L (Normal) Range: 0-44 [...] 6-24 Glucose 128 mg/dL (Abnormal) Range: 65-99 90-Cfw-10551:40 Basic Metabolic Profile (BMP) Comments: 'TROP' Serial specimen #1, #2, #3, or #4: [address] [place] [address] [address] [place], [address] GAP 7 (Normal) Range: 5-15 CO2 30.0 [...] A.D.A. criteria.Please note revised GLUCOSE reference range enyfzxrqo12/02/2018. 95-Dna-50383:40 CBC W/Diff, Automated Comments: [facility] [address] [place], [address] Absolute Lymph 2.28 {X10_3/ul} (Normal) [...] 4.6-6.2 WBC 10.0 K/mm3 (Normal) Range: 4.4-11.0 99-Xvc-47807:40 Troponin-I Comments: 'TROP' Serial specimen #1, #2, #3, or #4: [facility] [address]ut[address] [place], [place], [address] TROPONIN-I < 0.02 ng/mL (Normal) Comments: TROPONIN-I EXPECTED VALUES <0.05 NEGATIVE 0.06 - 0.59 AT RISK OF CO > OR = 0.60 SUGGEST CO 10-Vzk-096580:39 Basic Metabolic Profile (BMP) Comments: Has pt arrived? YComments: [facility]Hol[facility] [address] [place], [place], [address] GAP 9 (Normal) Range: 5-15 CO2 28.0 [...] 7-18 GLU 108 mg/dL (Normal) Range: 70-110 64-Bmo-920030:48 Basic Metabolic Profile (BMP) Comments: 'TROP' Serial specimen #1, #2, #3, or #4: [facility] [address] [place], [place], [address] GAP 9 (Normal) Range: 5-15 CO2 18.0 [...] 7-18 GLU 72 mg/dL (Normal) Range: 70-110 50-Jjq-176343:48 CBC W/Diff, Automated Comments: [facility] [address] [place], [address] Absolute Lymph 2.40 {X10_3/ul} (Normal) Range: 0.83-4.51 [...] Serial specimen #1, #2, #3, or #4: [address] [place] [address] [address] [place], [place], [address] TROPONIN-I < 0.02 ng/mL (Normal) Comments: TROPONIN-I EXPECTED VALUES <0.05 NEGATIVE 0.06 - 0.59 AT RISK OF CO > OR = 0.60 SUGGEST CO 15-Eeg-656779:41 HEPATIC FUNCTION PANEL Comments: PATIENT WAS FASTINGPERFORMED BY: [employer] [facility] [id number] BY: [employer] [facility] [id number] (15545) ALT (SGPT) 55 [iU]/L (Abnormal) Range: 0-44 AST (SGOT) 67 [iU]/L (Abnormal) Range: 0-40 Alkaline Phosphatase, S 87 [iU]/L (Normal) Range: 39-117 Bilirubin, Direct 0.22 mg/dL (Normal) Range: 0.00-0.40 Bilirubin, Total 0.7 mg/dL (Normal) Range: 0.0-1.2 Albumin, Serum 3.7 g/dL (Normal) Range: 3.5-5.5 Protein, Total, Serum 6.1 g/dL (Normal) Range: 6.0-8.5 26-Aeb-200109:41 LIPOPROTEIN, BLD, BY NMR Comments: PATIENT WAS FASTINGPERFORMED BY: [employer] [address] [id number] BY: [facility] [address] [place] [address] [id number]; fu 1-16 DB (83161) LP-IR Score 76 (Abnormal) Comments: INSULIN RESISTANCE MARKER <--Insulin Sensitive Insulin Resistant--> Percentile in Reference PopulationInsulin Resistance ScoreLP-IR Score Low 25th 50th 75th High <27 27 45 63 >63LP-IR Score is inaccurate if patient is non-fasting. .The LP-IR score is a laboratory developed i [facility] that has beenassociated with insulin resistance [...] 1600 - 2000 Very High > 2000 89-Sru-111736:41 Hemoglobin Glyclated (HGB Comments: now and every in three months (approximately); PATIENT WAS FASTINGPERFORMED BY: [facility]1447 [facility] [id number] BY: [place] [address]344[address] [facility] [id number] A1C) (60673) Hemoglobin A1c 5.2 % (Normal) Range: 4.8-5.6 Comments: . Pre-diabetes: 5.7 - 6.4 Diabetes: >6.4 Glycemic control for adults with diabetes: <7.0 :34 HGB A1C (45317) Comments: PATIENT NOT FASTINGPERFORMED BY: [place] [address]70 [facility] [id number] Hemoglobin A1c 5.3 % (Normal) Range: 4.8-5.6 Comments: . Pre-diabetes: 5.7 - 6.4 Diabetes: >6.4 Glycemic control for adults with diabetes: <7.0 :33 CBC WITH MANUAL DIFF (89842) Comments: PATIENT WAS FASTINGPERFORMED BY: [facility]6370 [facility] [id number] Immature Grans (Abs) 0.0 {x10E3/uL} (Normal) Range: [...] {x10E3/uL} (Normal) Range: 3.4-10.8 :33 Lipid Panel (80484) Comments: PATIENT WAS FASTINGPERFORMED BY: [facility] [id number] LDL/HDL Ratio 2.4 {ratio_units} (Normal) Range: 0.0-3.6 [...] Panel, Comprehensive Comments: PATIENT WAS FASTINGPERFORMED BY: [facility] [id number]; fu 07-23-17 DB (71819) ALT (SGPT) 15 [iU]/L (Normal) Range: 0-44 [...] Glucose, Serum 95 mg/dL (Normal) Range: 65-99 62-Ujk-070351:14 PSA (Prostate Specific Comments: PATIENT NOT FASTINGPERFORMED BY: [facility] [id number] Information: NURSE DRAW Antigen), Screening (08838) Prostate Specific Ag, 2.0 ng/mL (Normal) Range: 0.0-4.0 Serum Comments: [employer]lex ECLIA methodology. .According to the [place] [employer], Serum PSA shoulddecrease and remain at undetectable levels after radicalprostatectomy. The AUA defines biochemical recurrence as an initialPSA value 0.2 ng/mL or greater followed by a subsequent confirmatoryPSA value 0.2 ng/mL or greater.Values obtained with d ifferent assay methods or kits cannot be usedinterchangeably. Results cannot be interpreted as absolute evidenceof the presence or absence of malignant disease. 49-Bdt-523848:14 HEPATITIS C ANTIBODY (71345) Comments: PATIENT NOT FASTINGPERFORMED BY: Connectbeam RoadDublin [place] [id number] Hep C Virus Ab 0.3 {s/co_ratio} (Normal) Range: 0.0-0.9 Comments: Negative: < 0.8 Indeterminate: 0.8 - 0.9 Positive: > 0.9 . The CDC recommends that a positive HCV antibody result be followed up with a HCV Nucleic Acid Amplification test (245275). 24-Dtm-913625:16 MICROALBUMIN: CREATININE RATIO Comments: PATIENT NOT FASTINGPERFORMED BY: [facility] [id number] (58954) AND (01667) Microalb/Creat Ratio 3.2 {mg/g_creat} (Normal) Range: 0.0-30.0 Microalbumin, Urine 4.9 ug/mL (Normal) Creatinine, Urine 154.3 mg/dL (Normal) 84-Ycd-052851:16 VITAMIN B12 AND FOLATES Comments: PATIENT NOT FASTINGPERFORMED BY: [place] [address]34470 [facility] [id number] (25598) Folate (Folic Acid), Serum 19.8 ng/mL (Normal) Comments: A serum folate concentration of less than 3.1 ng/mL isconsidered to represent clinical deficiency. Vitamin B12 666 pg/mL (Normal) Range: 211-946 04-Ccj-520611:16 IRON & TOTAL IRON BINDING Comments: PATIENT NOT FASTINGPERFORMED BY: [facility] [id number] Information: NURSE DRAW CAPACITY (04067) Iron Saturation 30 % (Normal) Range: 15-55 Iron, Serum 91 ug/dL (Normal) Range: 38-169 UIBC 215 ug/dL (Normal) Range: 111-343 Iron Bind.Cap.(TIBC) 306 ug/dL (Normal) Range: 250-450 09-Eae-361484:16 FERRITIN (01815) Comments: PATIENT NOT FASTINGPERFORMED BY: [facility] [id number] Ferritin, Serum 682 ng/mL (Abnormal) Range: 30-400 76-Ika-38495:23 PSA (PROSTATE SPECIFIC Comments: PATIENT NOT FASTINGPERFORMED BY: [facility] VietnamAtlantiCare [facility] CampusFassaf9038 [facility] [id number] Information: [id number] ANTIGEN) (67679) Prostate Specific Ag, 1.7 ng/mL (Normal) Range: 0.0-4.0 Serum Comments: Yany ECLIA methodology. .According to the [place] [employer], Serum PSA shoulddecrease and remain [...] CREATININE RATIO Comments: PATIENT WAS FASTINGPERFORMED BY: [employer]6370 [facility] [id number] (25023) AND (32037) Microalb/Creat Ratio <2.9 {mg/g_creat} (Normal) Range: 0.0-30.0 Microalbumin, Urine <3.0 ug/mL (Normal) Creatinine, Urine 101.8 mg/dL (Normal) :22 METABOLIC PANEL, COMPREHENSIVE Comments: PATIENT WAS FASTINGPERFORMED BY: [employer] Cgkhkp2955 [facility] [id number] (32017) ALT (SGPT) 13 [iU]/L (Normal) Range: 0-44 [...] mg/dL (Normal) Range: 65-99 :22 LIPID PANEL (96795) Comments: PATIENT WAS FASTINGPERFORMED BY: [facility] [id number] LDL/HDL Ratio 1.2 {ratio_units} (Normal) Range: 0.0-3.6 [...] auto diff Comments: PATIENT WAS FASTINGPERFORMED BY: [facility] [id number] Information: [id number] (79026) Immature Grans (Abs) 0.0 {x10E3/uL} (Normal) Range: [...] three months (approximately); PATIENT WAS FASTINGPERFORMED BY: Funding Profiles70 [facility] [id number]; david Grewal 07-17 (74931) Hemoglobin A1c 4.6 % (Abnormal) Range: 4.8-5.6 Comments: . Pre-diabetes: 5.7 - 6.4 Diabetes: >6.4 Glycemic control for adults with diabetes: <7.0 :55 Ferritin (61250) Comments: PATIENT WAS FASTINGPERFORMED BY: [facility] [id number] Ferritin, Serum 606 ng/mL (Abnormal) Range: 30-400 :55 CALCIFIDIOL (60677) VIT D 25 Comments: PATIENT WAS FASTINGPERFORMED BY: Huy VietnamAtlantiCare [facility] Main[facility] CampusSuznfa1518 [facility] [id number] Vitamin D, 25-Hydroxy 64.5 ng/mL (Normal) Range: 30.0-100.0 Comments: Vitamin D deficiency has been defined by the [place] of[facility] Hospitalcine and an Endocrine Society practice guideline as alevel of serum 25-OH vitamin D less than 20 ng/mL (1,2).The Endocrine Society went on to further define vitamin Dinsufficiency as a level between 21 and 29 ng/mL (2).1. IOM ([place] of Medicine). 2010. Dietary reference intakes for calcium and D. [place]: The National Academies Press.2. Audra MF, Erin GRIFFITHS, Brittani CEDEÑO, et al. Evaluation, treatment, and prevention of vitamin D deficiency: an Endocrine Society clinical practice guideline. JCEM. 2010; 96(7):1911-30. :55 METABOLIC PANEL, COMPREHENSIVE Comments: PATIENT WAS FASTINGPERFORMED BY: Huy VietnamAtlantiCare [facility], Main[facility] CampusRkqgdh2514 [facility] [id number] (70829) ALT (SGPT) 18 [iU]/L (Normal) Range: 0-44 [...] Glucose, Serum 96 mg/dL (Normal) Range: 65-99 46-Dtt-81817:55 CBC with auto diff Comments: PATIENT WAS FASTINGPERFORMED BY: LabCoAtlantiCare [facility] Main[facility] CampusAamtsp5683 [facility] [id number] Information: [id number] (41045) Immature Grans (Abs) 0.0 {x10E3/uL} (Normal) Range: [...] 5.8 {x10E3/uL} (Normal) Range: 3.4-10.8 :10 Ferritin (09375) Comments: PATIENT WAS FASTINGPERFORMED BY: Huy VietnamAtlantiCare [facility] Main[facility] CampusBlpbrx4979 [facility] [id number] Ferritin, Serum 965 ng/mL (Abnormal) Range: 30-400 :10 LIPID PANEL (14769) Comments: PATIENT WAS FASTINGPERFORMED BY: Huy VietnamAtlantiCare [facility] Main[facility] CampusMvsvma4528 [facility] [id number] Information: [id number] LDL/HDL Ratio 0.9 {ratio_units} (Normal) Range: 0.0-3.6 [...] CREATININE RATIO Comments: PATIENT WAS FASTINGPERFORMED BY: Huy VietnamAtlantiCare [facility] Main[facility] CampusNwnigz6958 [facility] [id number] (00615) AND (61074) Microalb/Creat Ratio 3.3 {mg/g_creat} (Normal) Range: 0.0-30.0 Microalbumin, Urine 3.8 ug/mL (Normal) Range: 0.0-17.0 Creatinine, Urine 113.9 mg/dL (Normal) Range: 22.0-328.0 :10 Hemoglobin Glyclated (HGB A1C) Comments: PATIENT WAS FASTINGPERFORMED BY: [facility]6370 [facility] [id number]; apt. 11-04-15 (61698) Hemoglobin A1c 4.6 % (Abnormal) Range: 4.8-5.6 Comments: . Pre-diabetes: 5.7 - 6.4 Diabetes: >6.4 Glycemic control for adults with diabetes: <7.0 :56 Lipid Panel (21808) Comments: PATIENT WAS FASTINGPERFORMED BY: [facility]6370 [facility] [id number]; apt. [address] LDL/HDL Ratio 0.5 {ratio_units} (Normal) [...] Metabolic Panel, Comments: PATIENT WAS FASTINGPERFORMED BY: [facility]6370 [facility] [id number] Information: [id number] Comprehensive (35894) ALT (SGPT) 22 [iU]/L (Normal) Range: 0-44 [...] three months (approximately); PATIENT NOT FASTINGPERFORMED BY: Huy VietnamAtlantiCare [facility], Main[facility] CampusUnqdkn2895 [facility] [id number] Information: [id number] A1C) (26107) Hemoglobin A1c 5.1 % (Normal) Range: 4.8-5.6 Comments: . Increased risk for diabetes: 5.7 - 6.4 Diabetes: >6.4 Glycemic control for adults with diabetes: <7.0 :22 Ferritin (05643) Comments: PATIENT NOT FASTINGPERFORMED BY: Huy VietnamAtlantiCare Regional Medical [facility], Main[facility] CampusSfwofh3551 [facility] [id number] Ferritin, Serum 837 ng/mL (Abnormal) Range: 30-400 :22 Hemoglobin Glyclated (HGB A1C) Comments: now and every in three months (approximately); PATIENT NOT FASTINGPERFORMED BY: Huy VietnamAtlantiCare Regional [facility], Main[facility] CampusClafiz6131 [facility] [id number] (54681) Hemoglobin A1c 5.4 % (Normal) Range: 4.8-5.6 Comments: . Increased risk for diabetes: 5.7 - 6.4 Diabetes: >6.4 Glycemic control for adults with diabetes: <7.0 :02 LIPID PANEL (95014) Comments: PATIENT WAS FASTINGPERFORMED BY: Huy VietnamAtlantiCare [facility], Main[facility] CampusMcimvo8888 [facility] [id number] LDL/HDL Ratio 1.3 {ratio_units} (Normal) Range: 0.0-3.6 [...] PANEL, COMPREHENSIVE Comments: PATIENT WAS FASTINGPERFORMED BY: [facility] Cplajg0394 [facility] [id number] (28721) ALT (SGPT) 25 [iU]/L (Normal) Range: 0-44 [...] Glucose, Serum 105 mg/dL (Abnormal) Range: 65-99 11-Fvl-41918:02 CBC W/AUTO DIFF WBC Comments: PATIENT WAS FASTINGPERFORMED BY: [facility]6370 [facility] [id number] Information: [id number] (23677) Immature Grans (Abs) 0.0 {x10E3/uL} (Normal) Range: [...] 8.3 {x10E3/uL} (Normal) Range: 3.4-10.8 :02 CALCIFIDIOL (43866) VIT D 25 Comments: PATIENT WAS FASTINGPERFORMED BY: [address] [id number] Vitamin D, 25-Hydroxy 77.5 ng/mL (Normal) Range: 30.0-100.0 Comments: Vitamin D deficiency has been defined by the [place] ofMedicine and an Endocrine Society practice guideline as alevel of serum 25-OH vitamin D less than 20 ng/mL (1,2).The Endocrine Society went on to further define vitamin Dinsufficiency as a level between 21 and 29 ng/mL (2).1. IOM ([place] of Medicine). 2010. Dietary reference intakes for [...] mg/dL (Normal) Range: 200-370 Comments: Performed at: [address] [id number] Director: Rickey Leiva PhD, Phone: [phone] :[phone] IRON BINDING CAPACITY (TIBC) Comments: PATIENT NOT FASTINGPERFORMED BY: [address] [id number] (35128) Iron Saturation 28 % (Normal) Range: 15-55 Iron, Serum 90 ug/dL (Normal) Range: 40-155 UIBC 237 ug/dL (Normal) Range: 150-375 Iron Bind.Cap.(TIBC) 327 ug/dL (Normal) Range: 250-450 :12 CBC WITH MANUAL DIFF Comments: PATIENT NOT FASTINGPERFORMED BY: LabCoAtlantiCare [facility] CampusSzxqix0956 [facility] [id number] Information: [id number] (63837) Immature Grans (Abs) 0.0 {x10E3/uL} (Normal) Range: [...] 8.7 {x10E3/uL} (Normal) Range: 3.4-10.8 :12 FERRITIN (79613) Comments: PATIENT NOT FASTINGPERFORMED BY: LabCoAtlantiCare [facility], Main[facility] CampusNgygpx9755 [facility] [id number] Ferritin, Serum 798 ng/mL (Abnormal) Range: 30-400 :35 HgA1C , Office (22760) HgA1C , Office 6.4 % (Normal) Range: 4.6 - 7.1 :35 Blood Glucose , Office (92199) Blood Glucose , Office 107 (Normal) :09 METABOLIC PANEL, Comments: PATIENT WAS FASTINGPERFORMED BY: DONA [facility]Co[facility] Wmkscj5905 [facility] [id number] BY: [facility] Svssjfotor3313 [facility] [id number] [facility] (19255) ALT (SGPT) 14 [iU]/L (Normal) Range: 0-44 [...] mg/dL (Abnormal) Range: 65-99 :09 LIPID PANEL (96448) Comments: PATIENT WAS FASTINGPERFORMED BY: [facility] Ifhftt5273 [facility] [id number] BY: [place]uy [place] [id number] LDL/HDL Ratio 2.9 {ratio_units} (Normal) Range: 0.0-3.6 [...] MANUAL DIFF Comments: PATIENT WAS FASTINGPERFORMED BY: [facility] Fujdxj0966 [facility] [id number] BY: [place]uy [place] [id number] Inf ormation: [id number] (50337) Immature Grans (Abs) 0.0 {x10E3/uL} (Normal) Range: [...] 7.4 {x10E3/uL} (Normal) Range: 3.4-10.8 :09 Ferritin (97422) Comments: PATIENT WAS FASTINGPERFORMED BY: [facility] [id number] BY: Cashually[address] [id number] Ferritin, Serum 793 ng/mL (Abnormal) Range: 30-400 :09 TESTOSTERONE FREE (82647) Comments: PATIENT WAS FASTINGPERFORMED BY: [facility] [id number] BY: [place]uy [place] [id number] Free Testosterone(Direct) 1.8 pg/mL (Abnormal) Range: 7.2-24.0 :09 PSA (PROSTATE SPECIFIC Comments: PATIENT WAS FASTINGPERFORMED BY: Funding Profiles70 [facility] [id number] BY: [place]uy [place] [id number] ANTIGEN) (V76.44) Prostate Specific Ag, 1.0 ng/mL (Normal) Range: 0.0-4.0 Serum Comments: Yany ECLIA methodology. .According to the [place] Urological Association, Serum PSA shoulddecrease and remain [...] of malignant disease. :06 Metabolic Panel, Basic (44631) Comments: PATIENT WAS FASTINGPERFORMED BY: [place] Kfyiki9206 [facility] [id number] Calcium, Serum 10.3 mg/dL (Abnormal) Range: 8.7-10.2 [...] mg/dL (Abnormal) Range: 65-99 :06 CBC (Auto) (17359) Comments: PATIENT WAS FASTINGPERFORMED BY: [facility] Xxlwzc3126 [facility] [id number] Information: [id number] Platelets 279 {x10E3/uL} (Normal) Range: 150-379 RDW 13.4 % (Normal) Range: 12.3-15.4 MCH 28.7 pg (Normal) Range: 26.6-33.0 MCHC 34.1 g/dL (Normal) Range: 31.5-35.7 MCV 84 fL (Normal) Range: 79-97 Hematocrit 48.1 % (Normal) Range: 37.5-51.0 Hemoglobin 16.4 g/dL (Normal) Range: 12.6-17.7 RBC 5.72 {x10E6/uL} (Normal) Range: 4.14-5.80 WBC 7.4 {x10E3/uL} (Normal) Range: 3.4-10.8 :56 Blood Glucose , Office (21441) Blood Glucose , Office 91 (Normal) :35 HFE GENE (68154) Comments: PATIENT NOT FASTINGPERFORMED BY: TG [facility] GIZ7[address] DriveRTP [place] [id number] BY: CB [facility] Piejoo9968 [facility] [id number] Information: [id number] Hereditary Hemochromatosis 63HET (Normal) Comments: Result: CARRIERSingle [...] Prev M ed 16:134-140.Lilibeth Biggs (2002). Lancet 360(1566):1673-81.Ludivina Duenas al. (2002). Blood Cells, Molecules. andDiseases. 29(3):418-432.Caden Nguyen al. (2003). Cee Med. 5(1):1-8.Km ME et al. (2003). Cee Med. 5(4):304-10.Genetic counselors are available for health care providers to discussresults at [phone]. . Richard Canales, PhD Brea Diehl, PhD Josiane Lorenzo, PhD Venessa Tobias, PhD Amirah Payne, PhD Isabell Booker MD, PhD S LISBET Parsons, PhD :35 FERRITIN (33436) Comments: PATIENT NOT FASTINGPERFORMED BY: [facility] VXD3020 [facility] [id number] BY: [place] Xbuerm4489 [facility] [id number] Ferritin, Serum 712 ng/mL (Abnormal) Range: 30-400 :06 HgA1C , Office (12331) HgA1C , Office 6.5 % (Normal) Range: 4.6 - 7.1 :06 Blood Glucose , Office (97996) Blood Glucose , Office 134 (Normal) :25 Uric Acid Blood (67325) Comments: PATIENT WAS FASTINGPERFORMED BY: [place] Gjaqco5389 [facility] [id number] BY: [address] [id number] Uric Acid, Serum 6.3 mg/dL (Normal) Range: 3.7-8.6 Comments: Therapeutic target for gout patients: <6.0 :25 TESTOSTERONE FREE (54337) Comments: PATIENT WAS FASTINGPERFORMED BY: [place] Yntlky9941 [facility] [id number] BY: Homuork[address] [id number] Free Testosterone(Direct) 4.1 pg/mL (Abnormal) Range: 7.2-24.0 :25 CALCIFEDIOL (37457) Comments: PATIENT WAS FASTINGPERFORMED BY: [employer] Mvjbrp5980 [facility] [id number] BY: Huy [place] [id number] Vitamin D, 25-Hydroxy 50.9 ng/mL (Normal) Range: 30.0-100.0 Comments: Vitamin D deficiency has been defined by the [place] of[facility]cine and an Endocrine Society practice guideline as alevel of serum 25-OH vitamin D less than 20 ng/mL (1,2).The Endocrine Society went on to further define vitamin Dinsufficiency as a level between 21 and 29 ng/mL (2).1. IOM ([place] of Medicine). 2010. Dietary reference intakes for calcium and D. [place]: The National Academies Press.2. Audra MF, Erin GRIFFITHS, Brittani CEDEÑO, et al. Evaluation, treatment, and prevention of vitamin D deficiency: an Endocrine Society clinical practice guideline. JCEM. 2010; 96(7):1911-30. :25 MICROALBUMIN: CREATININE Comments: PATIENT WAS FASTINGPERFORMED BY: [employer] Brbcos5355 [facility] [id number] BY: Huy [place] [id number] RATIO (61104) AND (66006) Microalb/Creat Ratio 6.4 {mg/g_creat} (Normal) Range: 0.0-30.0 Creatinine, Urine 98.6 mg/dL (Normal) Range: 22.0-328.0 Microalbumin, Urine 6.3 ug/mL (Normal) Range: 0.0-17.0 :25 METABOLIC PANEL, Comments: PATIENT WAS FASTINGPERFORMED BY: Funding Profiles70 [facility] [id number] BY: [place]uy [place] [id number] COMPREHENSIVE (33791) ALT (SGPT) 31 [iU]/L (Normal) Range: 0-44 [...] Glucose, Serum 125 mg/dL (Abnormal) Range: 65-99 63-Ktu-54736:25 LIPID PANEL (62121) Comments: PATIENT WAS FASTINGPERFORMED BY: CB [facility] Jckvgs8828 [facility] [id number] BY: BN [facility] Ndlhgpjnbg4565 [facility] [id number] HDL Cholesterol 25 mg/dL (Abnormal) Comments: According [...] 100-199 Triglycerides 408 mg/dL (Abnormal) Range: 0-149 38-Alo-71828:25 CBC WITH MANUAL DIFF Comments: PATIENT WAS FASTINGPERFORMED BY: CB [facility] Ksluny9527 [facility] [id number] BY: BN [facility] Ngnspqgljm1115 [facility] [id number] Inf ormation: [id number] (60598) Immature Grans (Abs) 0.0 {x10E3/uL} (Normal) Range: [...] (Normal) Range: 3.4-10.8 :18 HgA1C , Office (73556) HgA1C , Office 5.8 % (Normal) Range: 4.6 - 7.1 :18 Blood Glucose , Office (55140) Blood Glucose , Office 134 (Normal) :10 CBC WITH MANUAL DIFF Comments: PATIENT WAS FASTINGPERFORMED BY: CB [facility] Civurv0886 [facility] [id number] BY: BN [facility] Ihxbkgmsmn1401 [facility] [id number] Inf ormation: [id number] (84534) Immature Grans (Abs) 0.0 {x10E3/uL} (Normal) Range: [...] 8.8 {x10E3/uL} (Normal) Range: 4.0-10.5 :10 Ferritin (25819) Comments: PATIENT WAS FASTINGPERFORMED BY: Huy [place] [id number] BY: [address] [id number] Ferritin, Serum 472 ng/mL (Abnormal) Range: 30-400 :10 LIPID PANEL (80498) Comments: PATIENT WAS FASTINGPERFORMED BY: Huy [place] [id number] BY: [address] [id number] LDL/HDL Ratio 2.3 {ratio_units} (Normal) Range: 0.0-3.6 [...] METABOLIC PANEL, Comments: PATIENT WAS FASTINGPERFORMED BY: Huy [place] [id number] BY: Homuork[address] [id number] COMPREHENSIVE (60169) ALT (SGPT) 21 [iU]/L (Normal) Range: 0-44 [...] MICROALBUMIN: CREATININE Comments: PATIENT WAS FASTINGPERFORMED BY: [employer] [facility] [id number] BY: [place]uy [place] [id number] RATIO (63789) AND (00530) Microalb/Creat Ratio 5.7 {mg/g_creat} (Normal) Range: 0.0-30.0 Microalbumin, Urine 6.6 ug/mL (Normal) Range: 0.0-17.0 Creatinine, Urine 115.6 mg/dL (Normal) Range: 22.0-328.0 :10 PSA (PROSTATE SPECIFIC Comments: PATIENT WAS FASTINGPERFORMED BY: Funding Profiles70 [facility] [id number] BY: [place]uy [place] [id number] ANTIGEN) (V76.44) Prostate Specific Ag, 1.2 ng/mL (Normal) Range: 0.0-4.0 Serum Comments: Yany ECLIA methodology. .According to the [place] Urological Association, Serum PSA shoulddecrease and remain at undetectable levels after radicalprostatectomy. The AUA defines biochemical recurrence as an initialPSA value 0.2 ng/mL or greater followed by a subsequent confirmatoryPSA value 0.2 ng/mL or greater.Values obtained with d ifferent assay methods or kits cannot be usedinterchangeably. Results cannot be interpreted as absolute evidenceof the presence or absence of malignant disease. :10 TESTOSTERONE FREE (17143) Comments: PATIENT WAS FASTINGPERFORMED BY: [employer] Tubsrb9792 [facility] [id number] BY: Homuork[address] [id number] Free Testosterone(Direct) 11.2 pg/mL (Normal) Range: 7.2-24.0 :10 Uric Acid Blood (54342) Comments: PATIENT WAS FASTINGPERFORMED BY: [employer] Xzxdub5318 [facility] [id number] BY: Huy [place] [id number] Uric Acid, Serum 5.7 mg/dL (Normal) Range: 3.7-8.6 Comments: Therapeutic target for gout patients: <6.0 :03 LIPID PANEL (88516) Comments: PATIENT WAS FASTINGPERFORMED BY: Gravity R&DChrist[place] 8300870 [facility] [id number] Information: [id number] LDL/HDL Ratio 2.6 {ratio_units} (Normal) Range: 0.0-3.6 LDL Cholesterol Calc 67 mg/dL (Normal) Range: 0-99 VLDL Cholesterol Tyrese 78 mg/dL (Abnormal) Range: 5-40 HDL Cholesterol 26 mg/dL (Abnormal) Comments: According to ATP-III Guidelines, HDL-C >59 mg/dL is considered anegative risk factor for CHD. Triglycerides 390 mg/dL (Abnormal) Range: 0-149 Cholesterol, Total 171 mg/dL (Normal) Range: 100-199 :50 HgA1C , Office (86844) HgA1C , Office 6.7 % (Normal) Range: 4.6 - 7.1 :50 Blood Glucose , Office (78824) Blood Glucose , Office 109 (Normal) :06 CBC WITH MANUAL DIFF Comments: PATIENT WAS FASTINGPERFORMED BY: CB [facility] Nriepj9383 [facility] [id number] BY: BN [facility] Abaslkyuds7087 [facility] [id number] Inf ormation: [id number] (42099) Immature Grans (Abs) 0.0 {x10E3/uL} (Normal) Range: [...] 4.14-5.80 WBC 7.5 {x10E3/uL} (Normal) Range: 4.0-10.5 14-Kog-09064:06 Ferritin (40688) Comments: PATIENT WAS FASTINGPERFORMED BY: Huy [place] 8300870 [facility] [id number] BY: [address] [id number] Ferritin, Serum 501 ng/mL (Abnormal) Range: 30-400 :06 LIPID PANEL (73089) Comments: PATIENT WAS FASTINGPERFORMED BY: Huy [place] 8300870 [facility] [id number] BY: [address] [id number] VLDL Cholesterol Tyrese VLDLCH mg/dL (Normal) Range: [...] METABOLIC PANEL, Comments: PATIENT WAS FASTINGPERFORMED BY: Huy [place] 8300870 [facility] [id number] BY: [address] [id number] COMPREHENSIVE (92110) ALT (SGPT) 32 [iU]/L (Normal) Range: 0-44 [...] MICROALBUMIN: CREATININE Comments: PATIENT WAS FASTINGPERFORMED BY: [facility]flashLifeCare [facility] [place] [id number] BY: Indeed[address] [id number] RATIO (09176) AND (61088) Microalb/Creat Ratio 5.8 {mg/g_creat} (Normal) Range: 0.0-30.0 Microalbumin, Urine 6.4 ug/mL (Normal) Range: 0.0-17.0 Creatinine, Urine 109.8 mg/dL (Normal) Range: 22.0-328.0 :06 PSA (PROSTATE SPECIFIC Comments: PATIENT WAS FASTINGPERFORMED BY: Funding Profiles70 [facility] JacksonPagerLifeCare [facility] [place] [id number] BY: Indeed[address] [id number] ANTIGEN) (V76.44) Prostate Specific Ag, 1.2 ng/mL (Normal) Range: 0.0-4.0 Serum Comments: Yany ECLIA methodology. .According to the [place] Urological Association, Serum PSA shoulddecrease and remain at undetectable levels after radicalprostatectomy. The AUA defines biochemical recurrence as an initialPSA value 0.2 ng/mL or greater followed by a subsequent confirmatoryPSA value 0.2 ng/mL or greater.Values obtained with d ifferent assay methods or kits cannot be usedinterchangeably. Results cannot be interpreted as absolute evidenceof the presence or absence of malignant disease. :06 TESTOSTERONE FREE (90668) Comments: PATIENT WAS FASTINGPERFORMED BY: Huy VietnamAtlantiCare [facility] Main[facility] CampusOrgjwe1436 [facility] [id number] BY: Lab[address] [id number] Free Testosterone(Direct) 13.7 pg/mL (Normal) Range: 7.2-24.0 :06 Uric Acid Blood (51326) Comments: PATIENT WAS FASTINGPERFORMED BY: Huy VietnamAtlantiCare [facility] Main[facility] CampusZtagtc8192 [facility] [id number] BY: Lab[address] [id number] Uric Acid, Serum 6.0 mg/dL (Normal) Range: 3.7-8.6 Comments: Therapeutic target for gout patients: <6.0 :49 HgA1C , Office (83817) HgA1C , Office 6.8 % (Normal) Range: 4.6 - 7.1 :49 Blood Glucose , Office (78105) Blood Glucose , Office 176 (Normal) :45 HgA1C , Office (53106) HgA1C , Office 11.5 % (Abnormal) Range: 4.6 - 7.1 Comments: not put in on -:01 HgA1C , Office (96995) HgA1C , Office 7.4 % (Abnormal) Range: 4.6 - 7.1 :01 Blood Glucose , Office (97874) Blood Glucose , Office 142 (Normal) 73-Qzo-258025:17 CBCMD RBCM NORM C+C {NORMAL} (Normal) PLTM LARGE (Normal) PE ADEQUATE (Normal) RTL 1+ (Normal) MON 9 % (Normal) Range: 0-10 LYMPH 19 % (Normal) Range: 19-41 PMN 72 % (Abnormal) Range: 47-70 TNOIO 100 (Normal) ANC 6.9 3/uL (Normal) Range: 2.0-7.7 PLT 276 K/mm3 (Normal) Range: 150-450 RDW 14.5 % (Normal) Range: 11.6-14.6 MCHC 32.8 g/dL (Normal) Range: 32-36 MCH 27.9 pg (Normal) Range: 27.0-32.0 MCV 85.0 fL (Normal) Range: 80-94 HCT 45.9 % (Normal) Range: 40-54 HGB 15.0 g.dL (Normal) Range: 13.0-16.5 RBC 5.40 {M/mm3} (Normal) Range: 4.6-6.2 WBC 9.3 K/mm3 (Normal) Range: 4.4-11.0 99-Skz-034911:17 CMP GAP 6 (Normal) Range: 5-15 CO2 [...] performed using the TPSA assay method for theExosect chemistry system. Values obtained with differentassay methods cannot be used interchangably.When ch anging PSA assays in the course of monitoring apatient, additional sequential testing should be carriedout to confirm baseline values. :17 TESTOF 11.1 pg/mL (Normal) Range: 6.8-21.5 Comments: Performed at: [address] [id number] Director: Elton Gallego MD, Phone: [phone] :[phone] URIC 4.4 mg/dL (Normal) Range: 3.5-7.2 :12 HgA1C , Office (17577) HgA1C , Office 7.2 % (Abnormal) Range: 4.6 - 7.1 :12 Blood Glucose , Office (13544) Blood Glucose , Office 113 (Normal) :01 [...] >240 mg/dL High Risk :37 TEST FR 005064 17.0 pg/mL (Normal) Comments: appt 01/04/12 Range: 6.8-21.5 Comments: Performed at: [facility] [address] [id number] Director: Dayanna Red MD, Phone: [phone] at: [employer] [place] [id number] Director: Elton Gallego MD, Phone: [phone] :[phone] VIT D,25 51748 39.6 ng/mL (Normal) Range: 30.0-100.0 Comments: Vitamin D deficiency has been defined by the [place] ofMedicine and an Endocrine Society practice guideline as alevel of serum 25-OH vitamin D less than 20 ng/mL (1,2).The Endocrine Society went on to further define vitamin Dinsufficiency as a level between 21 and 29 ng/mL (2).1. IOM ([place] of Medicine). 2011. Dietary reference intakes for calcium and D. [place]: The National Academies Press.2. Audra MF, Erin NC, Brittani CEDEÑO, et al. Evaluation, treatment, and prevention of vitamin D deficiency: an Endocrine Society clinical practice guideline. JCEM. 2010; 96(7):1911-30. [id number] CBCD,SMEAR DIFF RED CELL MORPH SeeNote {NORMAL} [...] 200 mg/dLsuggests DIABETES MELLITUS per A.D.A. criteria. [id number] COMPLETE UA MUCUS, URINE 4+ {/hpf} (Normal) [...] (Normal) COLOR YELLOW (Normal) :53 TESTOSTERONE FREE ([id number]) Comments: PATIENT NOT FASTINGPERFORMED BY: [employer] 78 [address] [id number] Information: [id number]; appt 11/02/11 Free Testosterone(Direct) 4.3 pg/mL (Abnormal) Range: 6.8-21.5 :53 Ferritin (30469) Comments: PATIENT NOT FASTINGPERFORMED BY: Funding Profiles70 FP Complete[place] [id number] Ferritin, Serum 588 ng/mL (Abnormal) Range: 30-400 :53 CALCIFIDIOL (08686) VIT D Comments: PATIENT NOT FASTINGPERFORMED BY: Funding [employer]files70 FP [facility] [id number] Information: [id number], 2ND ORDER NO DRAW FEE 25 Vitamin D, 25-Hydroxy 31.2 ng/mL (Normal) Range: 30.0-100.0 Comments: Vitamin D deficiency has been defined by the [place] ofMedicine and an Endocrine Society practice guideline as alevel of serum 25-OH vitamin D less than 20 ng/mL (1,2).The Endocrine Society went on to further define vitamin Dinsufficiency as a level between 21 and 29 ng/mL (2).1. IOM ([place] of Medicine). 2011. Dietary reference intakes for calcium and D. [place]: The National Academies Press.2. Audra MF, Erin GRIFFITHS, Brittani CEDEÑO, et al. Evaluation, treatment, and prevention of vitamin D deficiency: an Endocrine Society clinical practice guideline. JCEM. 2010; 96(7): 1911-30. Please note reference interval change :00 Ferritin (23788) Comments: PERFORMED BY: [employer] [address] [id number] BY: [facility] [id number] Ferritin, Serum 862 ng/mL (Abnormal) Range: 30-400 48-Gdm-21154:00 Vitamin B-12 (cyanocobalamin) Comments: PERFORMED BY: [place] [place] [id number] BY: [place]uy [place] Nkuekk1030 Stroud Roadblin [place] [id number] (74385) Vitamin B12 467 pg/mL (Normal) Range: 211-946 62-Vms-13393:00 CALCIFIDIOL (39026) VIT D Comments: PERFORMED BY: b-datum [address] [id number] BY: Novel Super[employer] [facility] [id number] 25 Vitamin D, 25-Hydroxy 7.6 ng/mL (Abnormal) Range: 32.0-100.0 Comments: Effective October 08, 2011 Vitamin D, 25-Hydroxy reference intervals will be changing to 30-100. .Recent studies consider the lower li ash of 32.0 ng/mL to be athreshold for optimal health.Alber WATTS. J Nutr. 2004;135(2):317-22. 96-Luk-86374:00 TESTOSTERONE FREE (64245) Comments: PERFORMED BY: [place] [place] [id number] BY: [place] [place] Usotmj7209 [address] [facility] [id number] Free Testosterone(Direct) 3.1 pg/mL (Abnormal) Range: 6.8-21.5 :45 HgA1C , Office (92746) HgA1C , Office 6.8 % (Normal) Range: 4.6 - 7.1 :45 Blood Glucose , Office (90050) Blood Glucose , Office 132 (Normal) 21-Ivm-24779:00 FSH, Serum Comments: PERFORMED BY: [place] [place] Dlvthl6248 [facility] [id number]; appt 09/21/11 FSH 4.1 m[iU]/mL (Normal) Range: 1.5-12.4 :00 Luteinizing Hormone(LH), S Comments: PERFORMED BY: [facility]6370 [facility] [id number] LH 3.4 m[iU]/mL Range: 1.7-8.6 (Normal) Methylmalonic Acid, 165 nmol/L Comments: PERFORMED BY: [address] [id number] BY: [facility]6370 [facility] [id number] :00 Serum (Normal) Range: 73-376 Comments: The reference range for methylmalonic acid has been set at +3sd abovethe mean for healthy blood bank donors. In the clinical assessment ofpatients with megaloblastic anemias a cutoff of +3sd provides gr eaterspecificity in the diagnosis of the vitamin deficiency states,despite the sacrifice of some sensitivity. Written Authorization WAR (Normal) Comments: PERFORMED BY: [facility]6370 [facility] [id number] :00 Comments: Written Authorization Received.Authorization received from SAMINA GOMEZ [id number] by Kristen Neri :57 Microscopic Examination Comments: PATIENT WAS FASTINGPERFORMED BY: [facility]6370 [facility] [id number] Bacteria None seen (Normal) Cast Type Hyaline casts (Normal) Casts Present {/lpf} (Abnormal) Epithelial Cells (non renal) None seen {/hpf} (Normal) Range: 0 - 10 RBC 0-3 {/hpf} (Normal) Range: 0 - 3 WBC 0-5 {/hpf} (Normal) Range: 0 - 5 :57 Uric Acid Blood (30843) Comments: PATIENT WAS FASTINGPERFORMED BY: [facility] [id number] Uric Acid, Serum 5.3 mg/dL (Normal) Range: 3.7-8.6 Comments: Therapeutic target for gout patients: <6.0 :57 URINALYSIS, W/ MICRO (07493) Comments: PATIENT WAS FASTINGPERFORMED BY: [employer] Asbyef6180 [facility] [id number] Microscopic Examination See below: (Normal) Microscopic Examination MICRON (Normal) Comments: Microscopic follows if indicated. Nitrite, Urine Negative (Normal) Urobilinogen,Semi-Qn 0.2 mg/dL (Normal) Range: 0.0-1.9 Bilirubin Negative (Normal) Occult Blood Negative (Normal) Ketones Negative (Normal) Glucose Negative (Normal) Protein Negative (Normal) WBC Esterase Negative (Normal) Appearance Clear (Normal) Urine-Color Yellow (Normal) pH 6.5 (Normal) Range: 5.0-7.5 Specific [place] 1.024 (Normal) Range: 1.005-1.030 :57 METABOLIC PANEL, COMPREHENSIVE Comments: PATIENT WAS FASTINGPERFORMED BY: [employer]6370 [facility] [id number] (26392) ALT (SGPT) 24 [iU]/L (Normal) Range: 0-55 [...] mg/dL (Abnormal) Range: 65-99 :57 LIPID PANEL (08808) Comments: PATIENT WAS FASTINGPERFORMED BY: [facility]Life[facility] [id number] VLDL Cholesterol Tyrese VLDLCH mg/dL (Normal) Range: [...] MANUAL DIFF Comments: PATIENT WAS FASTINGPERFORMED BY: [employer]6370 FP [facility] [id number] Information: [id number]; appt 09/06/11 (53399) Immature Grans (Abs) 0.0 {x10E3/uL} (Normal) Range: [...] (Normal) Range: 4.0-10.5 :56 Uric Acid Blood (39107) Comments: PATIENT WAS FASTINGPERFORMED BY: [facility] Cnmvca8373 [facility] [id number] Uric Acid, Serum 5.0 mg/dL (Normal) Range: 3.7-8.6 Comments: Therapeutic target for gout patients: <6.0 :56 URINALYSIS, W/ MICRO (15593) Comments: PATIENT WAS FASTINGPERFORMED BY: [facility] R&DAtlantiCare Regional Medical Center[facility] Mainland CampusHigbsk2010 [facility] [id number] Microscopic Examination See below: (Normal) Bilirubin Negative (Normal) Microscopic Examination MICRON (Normal) Comments: Microscopic follows if indicated. Nitrite, Urine Negative (Normal) Occult Blood Negative (Normal) Urobilinogen,Semi-Qn 0.2 mg/dL (Normal) Range: 0.0-1.9 Glucose Negative (Normal) Ketones Negative (Normal) Protein Negative (Normal) Appearance Clear (Normal) pH 6.5 (Normal) Range: 5.0-7.5 Urine-Color Yellow (Normal) WBC Esterase Negative (Normal) Specific [place] 1.020 (Normal) Range: 1.005-1.030 :56 METABOLIC PANEL, COMPREHENSIVE Comments: PATIENT WAS FASTINGPERFORMED BY: LabCoAtlantiCare Regional Medical Center, Main[facility] CampusBkovqz5561 [facility] [id number] (74551) A/G Ratio 1.7 (Normal) Range: 1.1-2.5 Alkaline [...] mg/dL (Abnormal) Range: 65-99 :56 LIPID PANEL (24447) Comments: PATIENT WAS FASTINGPERFORMED BY: Huy VietnamAtlantiCare Regional Medical Center, Mainland CampusMlwtdl4794 [facility] [id number] LDL/HDL Ratio 2.1 {ratio_units} (Normal) Range: 0.0-3.6 Cholesterol, Total 151 mg/dL (Normal) Range: 100-199 HDL Cholesterol 36 mg/dL (Abnormal) Comments: According to ATP-III Guidelines, HDL-C >59 mg/dL is considered anegative risk factor for CHD. LDL Cholesterol Calc 74 mg/dL (Normal) Range: 0-99 Triglycerides 206 mg/dL (Abnormal) Range: 0-149 VLDL Cholesterol Tyrese 41 mg/dL (Abnormal) Range: 5-40 33-Qih-05718:56 CBC WITH MANUAL DIFF Comments: PATIENT WAS FASTINGPERFORMED BY: Huy VietnamAtlantiCare Regional Medical Center, Mainland CampusOuthsw4773 [facility] [id number] Information: [id number], NO DRAW FEE 2ND OR NEIL (77883) Immature Grans (Abs) 0.0 {x10E3/uL} (Normal) Range: [...] Microscopic Examination Comments: PATIENT WAS FASTINGPERFORMED BY: LabCoAtlantiCare [facility] Main[facility] CampusCnnrfa2954 [facility] [id number] Bacteria Few (Normal) Mucus Threads Present (Normal) [...] of a clinically suspiciousabnormality. Dictated on 04/09/11 6908 by Hillary SILVA,GabrieleTranscribed on 04/09/11 0913 by [...] 04/09/11 1030 Sign by: Hood Thornton MD 84-Uaw-21125:54 TSH (64589) Comments: PATIENT WAS FASTINGPERFORMED BY: [place] [place] Darcel9633 [facility] [id number] Information: [id number] TSH 2.330 {uIU/mL} (Normal) Range: 0.450-4.500 :54 PROLACTIN (31735) Comments: PATIENT WAS FASTINGPERFORMED BY: Huy VietnamCarlsbad Medical CenterIuhlmi6976 [facility] [id number] Prolactin 14.7 ng/mL (Normal) Range: 4.0-15.2 :54 HCG (HUMAN CHORIONIC Comments: PATIENT WAS FASTINGPERFORMED BY: [place] [place] Mariof4814 [facility] [id number] GONADOTROPIN) (02942) hCG,Beta Subunit,Qual,Serum Negative m[iU]/mL Comments: . Negative <6Qualitative HCG reference interval applies only for pregnancyevaluation. (Normal) :55 Blood Glucose , Office (58933) Blood Glucose , Office 105 (Normal) :55 HgA1C , Office (68085) HgA1C , Office 6.1 % (Normal) Range: 4.6 - 7.1 :35 PSA (PROSTATE SPECIFIC Comments: PATIENT NOT FASTINGPERFORMED BY: [place] [place] Eapbvb8642 [facility] [id number] Information: [id number] ANTIGEN) (V76.44) Prostate Specific Ag, 1.0 ng/mL (Normal) Range: 0.0-4.0 Serum Comments: BIO-NEMSIA methodology. .According to the [place] Urological Association, Serum PSA shoulddecrease and remain [...] Microscopic Examination Comments: PATIENT WAS FASTINGPERFORMED BY: [place] [place] Jlygze1539 [facility] [id number] Bacteria None seen (Normal) Epithelial Cells (non None seen {/hpf} Range: 0 - 10 renal) (Normal) RBC None seen {/hpf} Range: 0 - 3 (Normal) WBC 0-5 {/hpf} (Normal) Range: 0 - 5 C difficile Toxins Negative (Normal) Comments: PERFORMED BY: [place] [place] Jrnhdk4973 [facility] [id number] 4:25 A+B, EIA 41-Acp-869500:25 Ova + Parasite Exam Comments: PERFORMED BY: [place]uy [place] [employer] [facility] [id number] Result 1 NOCP (Normal) Comments: No ova, cysts, or parasites seen. Ova + Parasite Exam Final report (Normal) Comments: These results were obtained using wet preparation(s) and trichromestained smear. This test does not include testing for Cryptosporidiumparvum, Cyclospora, or Microsporidia. 17-Cij-130778:25 Stool Culture Comments: PERFORMED BY: [facility] Qgllcb6135 [facility] [id number] Information: SRC:ST E coli Shiga Toxin EIA Negative (Normal) Result 1 NCI (Normal) Comments: No Campylobacter species isolated. Campylobacter Culture Final report (Normal) Result 1 NSS (Normal) Comments: No Salmonella or Shigella recovered. Salmonella/Shigella Screen Final report (Normal) :43 URINALYSIS, W/ MICRO (80121) Comments: PATIENT WAS FASTINGPERFORMED BY: [facility]Tr[facility] Hospital6370 [facility] [id number] Microscopic Examination See below: (Normal) Bilirubin Negative (Normal) Glucose Negative (Normal) Ketones Negative (Normal) Microscopic Examination MICRON (Normal) Comments: Microscopic follows if indicated. Nitrite, Urine Negative (Normal) Occult Blood Negative (Normal) Urobilinogen,Semi-Qn 0.2 mg/dL (Normal) Range: 0.0-1.9 Appearance Clear (Normal) Protein Negative (Normal) Urine-Color Yellow (Normal) WBC Esterase Negative (Normal) pH 7.0 (Normal) Range: 5.0-7.5 Specific [place] 1.021 (Normal) Range: 1.005-1.030 :43 METABOLIC PANEL, COMPREHENSIVE Comments: PATIENT WAS FASTINGPERFORMED BY: [facility]6370 [facility] [id number] (82952) ALT (SGPT) 17 [iU]/L (Normal) Range: 0-55 [...] mg/dL (Abnormal) Range: 65-99 :43 LIPID PANEL (10862) Comments: PATIENT WAS FASTINGPERFORMED BY: [employer] [facility] [id number] LDL/HDL Ratio 2.0 {ratio_units} (Normal) Range: 0.0-3.6 [...] MANUAL DIFF Comments: PATIENT WAS FASTINGPERFORMED BY: [facility] R&DAtlantiCare Regional Medical Center, Main[facility] CampusVmwowm9420 [facility] [id number] Information: [id number] (19235) Baso (Absolute) 0.1 {x10E3/uL} (Normal) Range: 0.0-0.2 [...] Panel (7) Comments: PATIENT WAS FASTINGPERFORMED BY: LabCoAtlantiCare Regional Medical Center, Main[facility] CampusUehehq2127 [facility] [id number] Albumin, Serum 4.2 g/dL (Normal) Range: 3.5-5.5 Alkaline Phosphatase, S 40 [iU]/L (Normal) Range: 25-150 ALT (SGPT) 15 [iU]/L (Normal) Range: 0-55 AST (SGOT) 18 [iU]/L (Normal) Range: 0-40 Bilirubin, Direct 0.13 mg/dL (Normal) Range: 0.00-0.40 Bilirubin, Total 0.4 mg/dL (Normal) Range: 0.1-1.2 Protein, Total, Serum 6.2 g/dL (Normal) Range: 6.0-8.5 :11 Lipid Panel With LDL/HDL Comments: PATIENT WAS FASTINGPERFORMED BY: Huy VietnamCarlsbad Medical CenterNialcv2270 [facility] [id number] Ratio Cholesterol, Total 142 mg/dL (Normal) Range: 100-199 HDL Cholesterol 40 mg/dL (Normal) Comments: According to ATP-III Guidelines, HDL-C >59 mg/dL is considered anegative risk factor for CHD. LDL Cholesterol Calc 81 mg/dL (Normal) Range: 0-99 LDL/HDL Ratio 2.0 {ratio_units} (Normal) Range: 0.0-3.6 Triglycerides 103 mg/dL (Normal) Range: 0-149 VLDL Cholesterol Tyrese 21 mg/dL (Normal) Range: 5-40 83-Njn-814644:30 CHEST, PA AND LATERAL (UT) Radiology Report See Note (Normal) Comments: Exam Number: [id number] PA AND LATERAL CHEST CLINICAL INDICATIONChronic cough. The heart size and contour are within normal limits. The pulmonaryvascularity is normal. No infiltrate or effusion is seen . There isno evidence of a mass or adenopathy. The bony thorax appearsunremarkable. IMPRESSIONNormal chest. Reported By: KIA COLEY M.D. 19-Nyl-307912:27 METABOLIC PANEL, COMPREHENSIVE Comments: PATIENT WAS FASTINGPERFORMED BY: Huy VietnamAtlantiCare Regional Medical Center, Mainland CampusBpdnfe1222 [facility] [id number] (62517) A/G Ratio 1.7 (Normal) Range: 1.1-2.5 Albumin, [...] Sodium, Serum 145 mmol/L (Normal) Range: 135-145 33-Smg-877402:27 LIPID PANEL (51141) Comments: PATIENT WAS FASTINGPERFORMED BY: [facility] Gzizpb3139 [facility] [id number] Cholesterol, Total 164 mg/dL (Normal) Range: 100-199 [...] Cholesterol Tyrese 27 mg/dL (Normal) Range: 5-40 02-Euj-422253:27 CBC WITH MANUAL DIFF (95981) Comments: PATIENT WAS FASTINGClinical Information: ADD DRAW FEE 290833 ADD J 94655 PERFORMED BY: DONA b-datum Dwggsd9298 [facility] [id number] Baso (Absolute) 0.0 {x10E3/uL} (Normal) Range: 0.0-0.2 [...] (Normal) Range: 4.0-10.5 :37 HgA1C , Office (38223) Comments: done>Wf. HgA1C , Office 5.5 % (Normal) Range: 4.6 - 7.1 :37 Blood Glucose , Office (21165) Comments: done>Wf. Blood Glucose , Office 103 (Normal) :44 Renal Panel (10) Comments: PERFORMED BY: [facility] Htfybz5270 [facility] [id number] Albumin, Serum 4.2 g/dL (Normal) Range: 3.5-5.5 [...] Sodium, Serum 144 mmol/L (Normal) Range: 135-145 02-Tvk-70824:22 Renal function Panel (73743) Comments: PATIENT NOT FASTINGClinical Information: ADD DRAW FEE 230684 ADD J 76015 PERFORMED BY: [facility] Qovbnt5082 [facility] [id number] Albumin, Serum 4.4 g/dL (Normal) Range: 3.5-5.5 [...] (Normal) Range: 135-145 :03 HgA1C , Office (71670) HgA1C , Office 5.6 % (Normal) Range: 4.6 - 7.1 :03 Blood Glucose , Office (29741) Blood Glucose , Office 96 (Normal) 6-Qrz-525893:43 Hemoglobin Glyclated (HGB A1C) Comments: PATIENT WAS FASTINGPERFORMED BY: [employer] [place] [id number] (85962) Hemoglobin A1c 5.8 % (Normal) Comments: Diabetic Adult <7.0 Healthy Adult 4.8 - 5.9 (DCCT/NGSP) [place] Diabete s Association's Summary of Glycemic Recommendations for Adults with Diabetes: Hemoglobin A1c <7.0%. More stringent glycemic goals (A1c <6.0%) may furth er reduce complications at the cost of increased risk of hypoglycemia. 5-Uij-020981:43 METABOLIC PANEL, COMPREHENSIVE Comments: PATIENT WAS FASTINGClinical Information: ADD DRAW FEE 624013 ADD J 74965 PERFORMED BY: [facility]Life[facility] [id number] (11074) A/G Ratio 1.6 (Normal) Range: 1.1-2.5 Albumin, [...] Serum 101 mg/dL (Abnormal) Range: 65-99 If -[place]gian >59 mL/min/1.73 Comments: Note: Persistent reduction for [...] Sodium, Serum 142 mmol/L (Normal) Range: 135-145 5-Qdp-356636:43 LIPID PANEL (02115) Comments: PATIENT WAS FASTINGPERFORMED BY: LabCoAtlantiCare [facility], Main[facility] CampusIeccue1919 [facility] [id number] Cholesterol, Total 170 mg/dL (Normal) Range: 100-199 [...] Cholesterol Tyrese 31 mg/dL (Normal) Range: 5-40 93-Mku-245086:07 CBCD,SMEAR DIFF CELLS COUNTED 100 (Normal) HCT [...] was performed using the TPSA method for theExosect chemistry system.Values obtained with different assay methods cannot be usedinterchangably.When changing PSA assays in the course of monito ring apatient, additional sequential testing should be carriedout to confirm baseline values. 23-Pjw-504063:31 COMP METABOLIC A/G 1.3 {RATIO} (Normal) Range: [...] was performed using the TPSA method for thePetbrosia chemistry system.Values obtained with different assay methods cannot be usedinterchangably.When changing PSA assays in the course of monito ring apatient, additionaly sequential testing should be carriedout to confirm baseline values. :18 Blood Glucose , Office (06980) Blood Glucose , Office 124 (Normal) :18 HgA1C , Office (44796) HgA1C , Office 5.3 % (Normal) Range: [...] Hypercholesterolemia Planned Observations Hemoglobin Glyclated (HGB A1C) (06360)Indication: Diabetes mellitus type II, controlled, with no complications On: 83-Dox-721822:35 Request CBC WITH MANUAL DIFF (04953)Indication: Hypertension On: :34 Request Lipid Panel (13692)Indication: Hypercholesterolemia On: :34 Request Metabolic Panel, Comprehensive (33600)Indication: Hypertension On: 48-Bht-732445:34 Request MICROALBUMIN: CREATININE RATIO (60555) AND (01898)Indication: Hypertension On: :34 Request URINALYSIS (57888)Indication: Hypertension On: :34 Request Metabolic Panel, Basic (45045)Indication: Hypertension On: 94-Ojm-04865:02 Request Comments: re check in 2 weeks HGB A1C (15959)Indication: Impaired fasting glucose On: 03-Pfg-257564:39 Request Comments: check prior to June apt Renal function Panel (28334)Indication: Cardiomyopathy, unspecified type On: 5-Acb-160283:52 Request CALCIFEDIOL (74814)Indication: Hypertension On: 21-Mmb-633410:21 Request TSH (THYROID STIMULATING HORMONE) (52521)Indication: Hypertension On: 91-Mhm-787088:21 Request LIPID PANEL (75116)Indication: Hypertension On: 28-Rkq-288644:20 Request METABOLIC PANEL, COMPREHENSIVE (24444)Indication: Hypertension On: 58-Git-216917:20 Request CBC, PLATELETS & AUT DIFF (41871)Indication: Hypertension On: 37-Cpw-254607:20 Request IRON (00547)Indication: Abnormal blood finding On: 37-Gbv-57682:25 Request PSA (PROSTATE SPECIFIC ANTIGEN) (V76.44)Indication: Encounter for health maintenance examination with abnormal findings On: 26-Als-114143:48 Request Ferritin (46259)Indication: Abnormal blood chemistry On: :48 Request TESTOSTERONE FREE (41544)Indication: Testosterone deficiency On: :48 Request Uric Acid Blood (13481)Indication: Gout, renal disease On: :48 Request MICROALBUMIN: CREATININE RATIO (83787) AND (43014)Indication: Diabetes mellitus type II, controlled, with no complications On: :48 Request METABOLIC PANEL, COMPREHENSIVE (94621)Indication: Diabetes mellitus type II, controlled, with no complications On: :48 Request LIPID PANEL (17049)Indication: Diabetes mellitus type II, controlled, with no complications On: :48 Request CBC WITH MANUAL DIFF (29194)Indication: Diabetes mellitus type II, controlled, with no complications On: :48 Request LIPID PANEL (15006)Indication: Hypercholesterolemia On: :23 Request Ferritin (87738)Indication: Abnormal blood chemistry On: :38 Request TESTOSTERONE FREE (38360)Indication: Testosterone deficiency On: :37 Request CALCIFIDIOL (61770) VIT D 25Indication: Vitamin D deficiency, unspecified On: :37 Request URINALYSIS, W/ MICRO (52870)Indication: Hypertension On: :37 Request METABOLIC PANEL, COMPREHENSIVE (97781)Indication: Hypertension On: :37 Request LIPID PANEL (35462)Indication: Hypertension On: :37 Request CBC WITH MANUAL DIFF (37148)Indication: Hypertension On: :37 Request Methylmalonic acid, serum 61858Nwjexfjwxv: Fatigue On: :20 Request Renal function Panel (94321)Indication: Hyperpotassemia On: :05 Request Metabolic Panel, Comprehensive (72669)Indication: Hypercholesterolemia On: :26 Request Lipid Panel (09827)Indication: Hypercholesterolemia On: :26 Request Comments: in six months (approximately) METABOLIC PANEL, COMPREHENSIVE (14846)Indication: Hypertension On: :29 Request LIPID PANEL (45611)Indication: Hypertension On: :29 Request CBC WITH MANUAL DIFF (23579)Indication: Hypertension On: :29 Request Comments: in six months (approximately) Metabolic Panel, Comprehensive (38891)Indication: Hypercholesterolemia On: :07 Request Lipid Panel (57835)Indication: Hypercholesterolemia On: :07 Request Comments: in three months PSA (PROSTATE SPECIFIC ANTIGEN) (69890)Indication: Encounter for health maintenance examination with abnormal findings On: :09 Request HEPATIC FUNCTION PANEL (74593)Indication: Hypercholesterolemia On: :09 Request LIPID PANEL (20482)Indication: Hypercholesterolemia On: :09 Request Planned Encounters Medical; MARTIN 3 Month FU - On: 07-Nov-2018 9:00 [facility] Juma SILVA, Samina Hernandez MD Planned Procedures TDAP VACCINE >7 IM (23750)By: On: 31-Mar-2018 Intent Juma SILVA, Samina Gomez MD, Comments: lot: [id number]: 04/16/20ite/route: L del/IMamt: 0.5mLVIS signed when applicableOLU [...] ADMNIN, 1 VAC, On: 05-Aug-2015 Intent SNGL/COMBO (60517)By: Juma SILVA, Samina Gomez MD, Samina Edwards FLU VAC, SPLIT, >3 YEARS, On: 05-Aug-2015 Intent INTRAMUSC (32289)By: Juma SILVA, Samina Samina Johnson MD Nuclear Medicine - OtherBy: On: 05-Aug-2015 Intent Juma SILVA, Samina Gomez MD, Comments: heptospleen scan Samina Edwards ESOPHOGRAM (89802)By: Juma On: 08-Dec-2014 Intent Samina SILVA MD, Dana M Comments: 12mm IMMUNIZ ADMNIN, 1 VAC, On: 02-Sep-2014 Intent SNGL/COMBO (83415)By: Samina Gomez MD, MD, Dana M FLU VAC, SPLIT, >3 YEARS, On: 02-Sep-2014 Intent INTRAMUSC (05932)By: Samina Gomez MD, MD, Dana M Nuclear Stress Test/Stress On: 03-May-2014 Intent SPECT/TreadmillBy: Samina Gomez MD, MD, Dana M CT - Cardiac CTABy: Juma SILVA, On: 30-Apr-2014 Intent Samina Hernandez MD EKG (42930)By: Samina Gomez MD On: 29-Apr-2014 Intent Samina Johnson MD Comments: see scanned document of test done to see results reviewed today with patient Nuclear Stress Test/Stress On: 29-Apr-2014 Intent SPECT/AdenosineBy: Samina Gomez MD, MD, Dana M Aerosol Treatment (32330)By: On: 15-Jan-2014 Intent Samina Gomez MD, MD, Dana M Eprescribed prescriptions On: 15-Jan-2014 Intent (G8553)By: Samina Gomez MD, MD, Dana M FLU VAC, SPLIT, >3 YEARS, On: 06-Nov-2013 Intent INTRAMUSC (71051)By: Ousmane, Comments: Lot:[id number]:Dose:0.5mLRoute:IMSite:L DltdGiven By:RADHA signed Estephanie IMMUNIZ ADMNIN, 1 VAC, On: 06-Nov-2013 Intent SNGL/COMBO (58246)By: Estephanie Romeo Eprescribed prescriptions On: 16-Jul-2013 Intent (G8553)By: Savanna Ramírez LPN L Aerosol Treatment (23188)By: On: 08-Jan-2013 Intent Samina Gomez MD, MD, Samina Edwards Eprescribed prescriptions On: 08-Jan-2013 Intent (G8553)By: Savanna Ramírez LPN L IMMUNIZ ADMNIN, 1 VAC, On: 21-Aug-2012 Intent SNGL/COMBO (02063)By: Darrell ALMANZA, Comments: Lot #[id number]-L dltd, IMDose prefilled syringegiven by carlita NEGRETE signed Savanna L FLU VAC, SPLIT, >3 YEARS, On: 21-Aug-2012 Intent INTRAMUSC (08970)By: Savanna Ramírez LPN L IMMUNIZATION ADMIN (70702)By: On: 06-Sep-2011 Intent Samina Gomez MD, MD, Dana M FLU VACCINE H1N1 (G9142)By: On: 06-Sep-2011 Intent Samina Gomez MD, MD, Dana M FLU VAC, SPLIT, >3 YEARS, On: 06-Nov-2010 Intent INTRAMUSC (63611)By: Juma SILVA, Comments: Lot #[id number]-L arm, IMDose0.5mlgiven by: Samina Hernandez MD IMMUNIZ ADMNIN, 1 VAC, On: 06-Nov-2010 Intent SNGL/COMBO (97656)By: Samina Gomez MD, MD, Dana M EKG (05325)By: Samina Gomez MD On: 06-Nov-2010 Intent Samina Johnson MD Spirometry (92670)By: Juma On: 04-Nov-2009 Intent Samina SILVA MD, Dana M Pulse Oximetry ([id number])By: On: 04-Nov-2009 Intent MIKKI De La Cruz IMMUNIZ ADMNIN, 1 VAC, On: 08-Sep-2009 Intent SNGL/COMBO ([id number])By: Lisy Otero RN FLU VAC, SPLIT, >3 YEARS, On: 08-Sep-2009 Intent INTRAMUSC ([id number])By: Shanna RN, Comments: Lot #: [id number] date: mount given: 0.5 mlRoute: IMSite given: left deltoidGiven by: ARCHIE Mcmillan Radiology - ChestBy: Juma SILVA, On: 07-Jul-2009 Intent Samina Hernandez MD Pulse Oximetry ([id number])By: On: 07-Jul-2009 Intent MIKKI De La Cruz Spirometry ([id number])By: Garrett On: 31-Mar-2009 Intent Mamie BUI Comments: done BC Inhaler Demonstration On: 31-Mar-2009 Intent ([id number])By: Mamie Tucker CNP Comments: done BCdemonstrates understanding, inhaler demo handout given to supplement instructions Pulse Oximetry ([id number])By: Garrett On: 31-Mar-2009 Intent Mamie BUI Comments: done BC Aerosol Treatment ([id number])By: On: 31-Mar-2009 Intent Mamie Tucker CNP Comments: done BC EKG ([id number])By: Samina Gomez MD On: 29-Oct-2008 Intent Samina Johnson MD EKG ([id number])By: Samina Gomez MD On: 09-Oct-2006 Intent Samina [...] for Tdap vaccination (Renamed from Need for xlkwuqgpjm-yhxdryn-ntljtomar (Tdap) vaccine, adult/a dolescent) [facility] [...] Nutrition: balanced diet and supplemental vitamins. 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
--- OUTSIDE RECORDS SUMMARY | 2019-02-06 03:55 | XMS RPT_ITS | Continuity of Care Document ---
:1960 Author Organization [facility] Address [address] [facility] [address] [place] [address] Phone Care Team Providers Name Role Phone Samina Gomez MD Unavailable Kenisha , Dr. Terrell Unavailable [facility] Unavailable Ronaldo German Jr Unavailable Samina [...] Comments: cardioverted X2 May 15 2014.Seeing rolando. li1fvya seen him last saw on jul 2017 ER for palp 1-18 by time get in then backin place. 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) Comments: [...] BMI 42.9 EKG changes noted had echo 12-05 EF 50%, A1C=5.5%, PHQ-9 9 (mild) 6CIT [...] for Tdap vaccination (Renamed from Need for zpdprtgzsq-kekdygi-eaxodjxnq (Tdap) vaccine, adult/adolescent) (Z23, V06.1) Status: Active [...] MD, Dana M Start : 04-Mar-2017 Active Cyclobenzaprine HCl 10 MG Oral Tablet 1 (one) Tablet tid prn for 0 days Quantity: 20 {Tablet} Refills: 0 Ordered:16-Oct-2018 MIKKI De La Cruz Start : 16-Oct-2018 Active Ergocalciferol 99673 UNIT Oral Capsule 1 Capsule q month [...] MD, Dana M Start : 06-Oct-2018 Active Medrol 4 MG Oral Tablet Therapy Pack uad Tablet as directed until gone for 0 days Quantity: 1 {Package} Refills: 0 Ordered:16-Oct-2018 MIKKI De La Cruz Start : 16-Oct-2018 Active PriLOSEC OTC 20 MG Oral Tablet [...] Quantity: 90 {Tablet} Refills: 3 Ordered:05-May-2015 Long BRUSH MACHINE SETTER, Savanna L Start : 16-Mar-2014 End : 05-May-2015 Inactive FENOFIBRATE, 160MG (Oral Tablet) 1 Tablet qd for 0 days Quantity: 90 {Tablet} Refills: 3 Ordered:05-May-2015 Long BRUSH MACHINE SETTER, Savanna L Start : 16-Mar-2014 End : [...] PRN for 0 days Refills: 0 Ordered:06-Nov-2010 Long BRUSH MACHINE SETTER, Savanna L Start : 09-Oct-2006 End : [...] Quantity: 20 {Tablet} Refills: 0 Ordered:06-Nov-2010 Long ARCHIE Savanna Shirley Start : 31-Jan-2010 End : 06-Nov-2010 Inactive [...] : 04-Jan-2012 End : 18-May-2014 Inactive Comments:dispense 58 in syringe 1 CC THIAMINE HCL, 100MG [...] Quantity: 14 {Tablet} Refills: 0 Ordered:20-Jan-2014 Garrett BUI Fabiola Start : 15-Jan-2014 End : 20-Jan-2014 Discontinued [...] Resolved Acute electrocardiogram changes (R94.31, 794.31) Comments: 4-17 no loss R waves like see in anterior old infarct some ST-t waves elevation could be repolarization, most recent echo show EF of 40% (3-17), had echo 05-01 EF was 55% Status: [...] Lead Electrocardiogram Result: Comments: See Note; NOTES: [facility] Cardiovascular Services [address] [place] [address] 12 Lead EKG 08/20/18 1825 MR#: [id number] Acct: [id number] Name: VISHAL BAILEY Rep #: [id number] : 1960 57 From: Ken Ortiz MD [...] , age undetermined Abnormal ECG Confirmed by KEN ORTIZ MD ([id number]), photograph editor MATTI DOBSON (56) on 08/25/2018 3:13:27 PM Referred By: ACOSTA/KAVON Confirmed By:KEN ORTIZ MD 08/25/18 1513 Date _ Ken Ortiz MD CC: Samina Gomez MD; Jovani Green MD Signed 21-Aug-2018 Discharge Instruction Result: Comments: See Note; NOTES: [facility] Medical Records Department [address] [place] [address] Discharge Instruction 08/20/181927 MR#: [id number] Acct: [id number] Name: DO SHELLY BAILEY R Rep #: [id number] : 1960 57 From: Jovani Green MD [...] problems, contact your Primary Care Provider. Call [employer] [facility] ([phone]) or report to the closest Emergency Room. Call 911 if necessary. 08/21/18 0030 <Electronically signed by Jovani Green MD> Date Jovani Green MD Cosigner Signature (If Indicat ed): Date CC: Samina Gomez MD 21-Aug-2018 Emergency Department Summary Result: Comments: See Note; NOTES: [facility] Medical Records Department [address] [place] [address] Emergency Department Summary 08/20/18 1858 MR#: [id number] Acct: [id number] Name: VISHAL BAILEY Rep #: [id number] : 1960 57 From: Jovani Green MD [...] high cholesterol This note was generated with [employer]. It may contain incorrect words, spelling, and [...] your Primary Care Provider. Call [facility] ([phone]) or report to the closest Emergency Room. Call 911 if necessary. 08/21/18 0030 <Electronically signed by Jovani Fitzgerald> Date Jovani Green MD Cosigner Signature (If Indicated): Date CC: Samina Gomez MD 20-Aug-2018 Chest 1 View (Portable) Result: Comments: See Note; NOTES: [facility] Imaging Services [address] [place] [address] Chest 1 View (Portable) MR#: [id number] Acct: [id number] Name: VISHAL BAILEY Rep #: [id number] : 1960 M 57 From: Iris Dobson MD PCP: Samina Gomez MD Status: PRE ER Study: Chest 1 View (Portable) Date of Exam: 08/20/18 Exam# [id number] Ordering Dr: Jovani Green MD STUDY: X-RAY CLEMENTE ST REASON FOR EXAM: Male, 57 years old. [...] CC: Samina Gomez MD; Jovani Green MD Button Attaching Machine Operator: Signed 09-Apr-2018 Cardiology Visit Report Result: Comments: See Note; NOTES: [address] [place] [address] OFFICE VISIT Date of Service: 04/09/18 MR#: [id number] Acct: [id number] Name: VISHAL BAILEY #: [id number] : 1960 Provider: MARCK Ospina Age/Sex: 57/M Location: [facility] Status: Signed HPI HPI Details: VISHAL BAILEY, is a 57 M who presents to the office today for a cardiovascular out patient follow-up. He has a history of atrial flutter with cardioversion in 2013, cardiomyopathy, hypertension, hyperlipidemia, diabetes mellitus, and obesity. 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 Accompanied by: None Is patient [...] to 54 (50% per echo 11/27/2017 at [facility] Medical History Paroxysmal atrial flutter (Chronic) Systolic [...] Lead Electrocardiogram Result: Comments: See Note; NOTES: [facility] Cardiovascular Services [address] [facility] [address] 12 Lead EKG 02/15/18 0831 MR#: [id number] Acct: [id number] Name: VISHAL BAILEY Rep #: [id number] : 1960 57 From: Ken Ortiz MD [...] bundle branch block Abnormal ECG Confirmed by KEN ORTIZ MD ([id number]), photograph editor MATTI DOBSON (56) on 02/17/2018 1:57:55 PM Referred By: ARIELLE Confirmed By:KEN ORTIZ MD 02/17/18 1358 Date Ken Ortiz MD CC: Samina Gomez MD; Abhijit Lea MD; Celia Khanna MD Signed 17-Feb-2018 12 Lead Electrocardiogram Result: Comments: See Note; NOTES: [facility] Cardiovascular Services [address] [place] [address] 12 Lead EKG 02/15/18 1002 MR#: [id number] Acct: [id number] Name: VISHAL BAILEY Rep #: [id number] : 1960 57 From: Ken Ortiz MD [...] Abnormal ECG Confirmed by KEN ORTIZ MD ([id number]), photograph editor MATTI DOBSON (56) on 02/17/2018 1:38:59 PM Referred By: MINERVA Confirmed By:KEN ORTIZ MD 02/17/18 1339 Date Ken Ortiz MD CC: Samina Gomez MD; Abhijit Lea MD Signed 17-Feb-2018 12 Lead Electrocardiogram Result: Comments: See Note; NOTES: [facility] Cardiovascular Services [address] [place] [address] 12 Lead EKG 02/15/18 0902 MR#: [id number] Acct: [id number] Name: VISHAL BAILEY R Rep #: [id number] : 1960 57 From: Ken Ortiz MD [...] Confirmed by OF KEN SALGADO MD ([id number]), photograph editor MATTI DOBSON (56) on 02/17/2018 1:39:12 PM Referred By: MINERVA Confirmed By:KEN ORTIZ MD 02/17/18 1339 Date Ken Fitzgerald CC: Samina Gomez MD; Abhijit Lea MD Signed 15-Feb-2018 Discharge Instruction Result: Comments: See Note; NOTES: [facility] Medical Records Department [address] [place] [address] Discharge Instruction 02/15/18 1015 MR#: [id number] Acct: [id number] Name: DO LEO SHELLY R Rep #: [id number] : 1960 57 From: Abhijit Lea MD [...] your Primary Care Provider. Call [facility] ([phone]) or report to the closest Emergency Room. Call 911 if necessary. 02/15/18 1706 <Electronically signed by Abhijit Lea MD> Date Abhijit Lea MD Co signer Signature (If Indicated): Date CC: Samina Gomez MD 15-Feb-2018 Emergency Department Summary Result: Comments: See Note; NOTES: [facility] Medical Records Department [address] [place] [address] Emergency Department Summary 02/15/18 0928 MR#: [id number] Acct: [id number] Name: VISHAL BAILEY Rep #: [id number] : 1960 57 From: Abhijit Lea MD [...] Atrial flutter This note was generated with [employer] software. It may contain incorrect words, spelling, [...] your Primary Care Provider. Call [facility] ([phone]) or repor t to the closest Emergency Room. Call 911 if necessary. 02/15/18 1706 <Electronically signed by Abhijit Lea MD> Date Abhijit Lea MD Cosigner Signature (If Indicated): Date CC: Samina Gomez MD 15-Feb-2018 Chest 1 View (Portable) Result: Comments: See Note; NOTES: [facility] Imaging Services [address] [place] [address] Chest 1 View (Portable) MR#: [id number] Acct: [id number] Name: VISHAL BAILEY Rep #: [id number] : 1960 M 57 From: Anthony Guzman MD PCP: Samina Gomez MD Status: REG ER Study: Chest 1 View (Portable) Date of Exam: 02/15/18 Exam# [id number] Ordering Dr: Abhijit Lea MD STUDY: X-RAY [...] CC: Samina Gomez MD; Abhijit Lea MD Button Attaching Machine Operator: Signed 09-Dec-2017 12 Lead Electrocardiogram Result: Comments: See Note; NOTES: [facility] Cardiovascular Services [address] [place] [address] 12 Lead EKG 12/07/171917 MR#: [id number] Acct: [id number] Name: VISHAL BAILEY R Rep #: [id number] : 1960 57 From: Stiven Goldman MD [...] : 439 ms Normal sinus rhythm Septal KS, age undetermined , cannot be excluded Confirmed by CAMERON SILVA, STIVEN ([id number]), photograph editor MATTI DOBSON (56) on 12/09/2017 1:21:21 PM Referred By: ACOSTA Confirmed By:STIVEN GOLDMAN MD 12/09/17 1321 Date Stiven Goldman MD CC: Samina Gomez MD Signed 07-Dec-2017 Discharge Instruction Result: Comments: See Note; NOTES: [facility] Medical Records Department [address] [place] [address] Discharge Instruction 12/07/172120 MR#: [id number] Acct: [id number] Name: DO SHELLY BAILEY R Rep #: [id number] : 1960 57 From: Jovani Green MD [...] problems, contact your Primary Care Provider. Call [employer] [facility] ([phone]) or report to the closest Emergency Room. Call 911 if necessary. 12/07/172229 <Electron ically signed by Jovani Green MD> Date Jovani Green MD Cosigner Signature (If Indicated): Date CC: Samina Gomez MD 07-Dec-2017 Emergency Department Summary Result: Comments: See Note; NOTES: [facility] Medical Records Department [address] [place] [address] Emergency Department Summary 12/07/171942 MR#: [id number] Acct: [id number] Name: VISHAL BAILEY Rep #: [id number] : 1960 57 From: Jovani Green MD [...] atrial flutter This note was generated with [employer] dictation software. It may contain incorrect words, [...] problems, contact your Primary Care Provider. Call [employer] [facility] ([phone]) or report to the closest Emergency Room. Call 911 if necessary. 12/07/17 2230 <Electronically signed by Jovani Green MD> Date _ Jovani Green MD Cosigner Signature (If Indicated): Date CC: Samina Gomez MD 07-Dec-2017 Chest 1 View (Portable) Result: Comments: See Note; NOTES: [facility] Imaging Services [address] [place] [address] Chest 1 View (Portable) MR#: [id number] Acct: [id number] Name: VISHAL BAILEY Rep #: [id number] : 1960 57 From: Andrew Abraham MD PCP: Samina Gomez MD Status: DEP ER Study: Chest 1 View (Portable) Date of Exam: 12/07/17 Exam# [id number] Ordering Dr: Jovani Green MD STUDY: X-RAY [...] CC: Samina Gomez MD; Jovani Green MD Button Attaching Machine Operator: Signed 27-Nov-2017 Echocardiogram Complete Result: Comments: See Note; NOTES: [facility] Cardiovascular Services [address] [place] [address] Echo Complete 11/27/17 0951 MR#: [id number] Acct: [id number] Name: VISHAL BAILEY p #: [id number] : 1960 57 From: Stiven Goldman MD Attending Dr: Samina Gomez MD Status: REG CLI Ordering Dr: Samina Gomez MD Date: 11/27/17 Location: [facility] Sex: M C Admitted: Reason For [...] Date Dictated: 11/27/17 0951 Date Transcribed: 11/27/171804 Button Attaching Machine Operator: Signed 15-Feb-2017 Echocardiogram Complete Result: Comments: See Note; NOTES: [facility] Cardiovascular Services [address] [place] [address] Echo Complete 02/15/17 0953 MR#: [id number] Acct: [id number] Name: VISHAL BAILEY toribio #: [id number] : 1960 56 From: Ken Ortiz MD Attending Dr: Samina Gomez MD Status: REG CLI Ordering Dr: Samina Gomez MD Date: 02/15/17 Location: [facility] Sex: M C Admitted: Reason For [...] MD Date Dictated: 02/15/17 0953 Date Transcribed: 02/15/171421 Button Attaching Machine Operator: Signed 16-Dec-2014 Esophagus Only Result: Comments: See Note; NOTES: [facility] Imaging Services [address] [place] [address] Radiology Report MR#: [id number] Acct: [id number] Name: VISHAL BAILEY Rep #: [id number] : 1960 M 54 From: Hood Thornton MD PCP: Samina Gomez MD Status: REG CLI Study: Esophagus Only Date of Exam: 12/16/14 Exam# [id number] Ordering Dr: Samina Gomez MD STUDY: X-RAY [...] Hood Thornton MD at 8:59 EST Tel [phone], Service flores pport [phone], CC: Samina Gomez MD Button Attaching Machine Operator: Signed 23-Sep-2014 Abdomen WITH IV Contrast Result: Comments: See Note; NOTES: [facility] Imaging Services [address] [place] [address] CAT Scan Report MR#: [id number] Acct: [id number] Name: VISHAL BAILEY Rep #: [id number] : 1960 M 53 From: Hood Thornton MD PCP: Samina Gomez MD Status: REG CLI Study: Abdomen WITH IV Contrast Date of Exam: 09/23/14 Exam# [id number] Ordering Dr: Xander De MD UDY: CT ABDOMEN WITH CONTRAST REASON FOR EXAM: [...] Hood Thornton MD at 11:45 EST Tel [phone], Service support [phone], CC: Samina Gomez MD; Xander De Button Attaching Machine Operator: Signed Immunization Name Dates Details Influenza (3 years and up) on: 08-Sep-2009 Comments: Lot #: [id number] date: mount given: 0.5 mlRoute: IMSite [...] Status: Active 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 Work/Study Status Comments: 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, 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, 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 go to buddhist Status: Active Exercise History Comments: Inactive Status: [...] kg/m2 Body Surface Area Calculated 2.17 m2 66-Qyb-593620:22 Pulse 66 /min Comments: Pattern: Regular Respiration [...] Size: Standard Height 73 in :48 Comments: Cortney declined weight Temperature 97.9 f Comments: Method: [...] Cuff Location: Left Arm; Cuff Size: Standard 36-Qwq-242808:41 Pulse 70 /min Comments: Pattern: Regular Respiration [...] Height 0 in Head Circumference 0.00 cm 72-Txa-03100:41 Temperature 97.6 f Comments: Method: Oral Pulse [...] 0.00 cm Results Date Description Value Details 9-Hfo-683778:31 Basic Metabolic Profile (BMP) Comments: [facility] [address] [place], [address] GAP 10 (Normal) Range: 5-15 CO2 27.0 [...] A.D.A. criteria.Please note revised GLUCOSE reference range gxrthrziv56/02/2018. 0-Fzl-052014:31 CBC W/Diff, Automated Comments: [facility] [address] [place], [address] Absolute Lymph 2.67 {X10_3/ul} (Normal) Range: 0.83-4.51 [...] 4.6-6.2 WBC 9.7 K/mm3 (Normal) Range: 4.4-11.0 3-Ovx-359076:31 Troponin-I Comments: [facility] [address] [place], [address] TROPONIN-I < 0.015 ng/mL (Normal) Comments: TROPONIN-I EXPECTED VALUES <0.045 Negative 0.045 - 0.590 Consistent with Cardiac Damage > OR = 0.600 Critical Value Not every elevated troponin is indicative of KS. T hesevalues should be used with clinical judgement in examiningthe patient's clinical picture for diagnosis. To establisha diagnosis of KS versus myocardial injury, there must be ademonstrated rise and/ or fall in the troponin values, inaddition to ischemic symptoms, EKG changes, new regionalwall motion abnormality, and/or angiographical evidence. PLEASE NOTE: REFERENCE RANGES EDITED 03/31/1828-Jul-201873-Dbh-174906:19 HGB A1C (82396) Comments: PATIENT NOT FASTINGPERFORMED BY: [employer] Jyoyxa6753 [facility] [id number] Hemoglobin A1c 5.8 % (Abnormal) Range: 4.8-5.6 Comments: . Prediabetes: 5.7 - 6.4 Diabetes: >6.4 Glycemic control for adults with diabetes: <7.0 :19 TSH (96790) Comments: PATIENT NOT FASTINGPERFORMED BY: [facility] Hcadlx1897 [facility] [id number] TSH 3.030 {uIU/mL} (Normal) Range: 0.450-4.500 10-Xla-063106:19 CBC, Platelets & Auto Diff Comments: PATIENT NOT FASTINGPERFORMED BY: [employer] Tigmhw1781 [facility] [id number] (50253) Immature Grans (Abs) 0.0 {x10E3/uL} (Normal) Range: [...] 4.14-5.80 WBC 11.1 {x10E3/uL} (Abnormal) Range: 3.4-10.8 19-Cpe-525203:19 Metabolic Panel, Comprehensive Comments: PATIENT NOT FASTINGPERFORMED BY: [facility] CenterNjjqlt6627 [facility] [id number] (31203) ALT (SGPT) 37 [iU]/L (Normal) Range: 0-44 [...] 6-24 Glucose 131 mg/dL (Abnormal) Range: 65-99 38-Ial-069573:59 PSA (Prostate Specific Comments: PATIENT NOT FASTINGPERFORMED BY: [employer] Fvllrx5103 [facility] [id number] Antigen), Screening (83672) Prostate Specific Ag, 1.2 ng/mL (Normal) Range: 0.0-4.0 Serum Comments: Repair ReportIA methodology. .According to the [place] [employer], Serum PSA shoulddecrease and remain at undetectable levels after radicalprostatectomy. The AUA defines biochemical recurrence as an initialPSA value 0.2 ng/mL or greater followed by a subsequent confirmatoryPSA value 0.2 ng/mL or greater.Values obtained with d ifferent assay methods or kits cannot be usedinterchangeably. Results cannot be interpreted as absolute evidenceof the presence or absence of malignant disease. 18-Mar-20181:21 MICROALBUMIN: CREATININE RATIO Comments: PATIENT NOT FASTINGPERFORMED BY: [facility] CenterCexxyr6984 [facility] [id number] (45115) AND (34558) Alb/Creat Ratio 1.6 {mg/g_creat} (Normal) Range: 0.0-30.0 Albumin, Urine 3.1 ug/mL (Normal) Creatinine, Urine 193.0 mg/dL (Normal) 18-Mar-20181:21 URINALYSIS (48272) Comments: PATIENT NOT FASTINGPERFORMED BY: [employer] Cayeyq4739 [facility] [id number] Microscopic Examination MICNIP (Normal) Comments: Microscopic not indicated and not performed. Nitrite, Urine Negative (Normal) Urobilinogen,Semi-Qn 0.2 mg/dL (Normal) Range: 0.2-1.0 Bilirubin Negative (Normal) Occult Blood Negative (Normal) Ketones Negative (Normal) Glucose Negative (Normal) Protein Negative (Normal) WBC Esterase Negative (Normal) Appearance Clear (Normal) Urine-Color Yellow (Normal) pH 5.0 (Normal) Range: 5.0-7.5 Specific Babcock 1.025 (Normal) Range: 1.005-1.030 :21 CBC WITH MANUAL DIFF Comments: PATIENT NOT FASTINGPERFORMED BY: [facility]6370 [facility] [id number] Information: NURSE DRAW (89994) Immature Grans (Abs) 0.0 {x10E3/uL} (Normal) Range: [...] Panel, Comprehensive Comments: PATIENT NOT FASTINGPERFORMED BY: [facility]6370 [facility] [id number]; appt 03/31 (61471) ALT (SGPT) 34 [iU]/L (Normal) Range: 0-44 [...] 6-24 Glucose 128 mg/dL (Abnormal) Range: 65-99 26-Uxi-40415:40 Basic Metabolic Profile (BMP) Comments: 'TROP' Serial specimen #1, #2, #3, or #4: 1[facility] [address] [place], [place], [address] GAP 7 (Normal) Range: 5-15 CO2 30.0 [...] A.D.A. criteria.Please note revised GLUCOSE reference range vchomxhik46/02/2018. 65-Qwu-01169:40 CBC W/Diff, Automated Comments: [facility] [address] [place], [place], [address] Absolute Lymph 2.28 {X10_3/ul} (Normal) Range: 0.83-4.51 [...] 4.6-6.2 WBC 10.0 K/mm3 (Normal) Range: 4.4-11.0 84-Pqi-63320:40 Troponin-I Comments: 'TROP' Serial specimen #1, #2, #3, or #4: [address] [place] [address] [address] [place], [address] TROPONIN-I < 0.02 ng/mL (Normal) Comments: TROPONIN-I EXPECTED VALUES <0.05 NEGATIVE 0.06 - 0.59 AT RISK OF KS > OR = 0.60 SUGGEST KS 78-Kak-858222:39 Basic Metabolic Profile (BMP) Comments: Has pt arrived? YComments: new [facility] drawUniversity [facility] [address] [place], [address] GAP 9 (Normal) Range: 5-15 CO2 28.0 [...] 7-18 GLU 108 mg/dL (Normal) Range: 70-110 59-Rda-140618:48 Basic Metabolic Profile (BMP) Comments: 'TROP' Serial specimen #1, #2, #3, or #4: [address] [place] [address] [address] [place], [place], [address] GAP 9 (Normal) Range: 5-15 CO2 18.0 [...] 7-18 GLU 72 mg/dL (Normal) Range: 70-110 27-Gwj-332887:48 CBC W/Diff, Automated Comments: [facility] [address] [place], [place], [address] Absolute Lymph 2.40 {X10_3/ul} (Normal) Range: 0.83-4.51 [...] 4.6-6.2 WBC 7.2 K/mm3 (Normal) Range: 4.4-11.0 90-Sgw-911895:48 Troponin-I Comments: 'TROP' Serial specimen #1, #2, #3, or #4: [address] [place] [address] [address] [place], [place], [address] TROPONIN-I < 0.02 ng/mL (Normal) Comments: TROPONIN-I EXPECTED VALUES <0.05 NEGATIVE 0.06 - 0.59 AT RISK OF KS > OR = 0.60 SUGGEST KS 58-Bvn-080536:41 HEPATIC FUNCTION PANEL Comments: PATIENT WAS FASTINGPERFORMED BY: [facility] [address] [id number] BY: CB [facility] Dorhte7365 [facility] [id number] (58653) ALT (SGPT) 55 [iU]/L (Abnormal) Range: 0-44 AST (SGOT) 67 [iU]/L (Abnormal) Range: 0-40 Alkaline Phosphatase, S 87 [iU]/L (Normal) Range: 39-117 Bilirubin, Direct 0.22 mg/dL (Normal) Range: 0.00-0.40 Bilirubin, Total 0.7 mg/dL (Normal) Range: 0.0-1.2 Albumin, Serum 3.7 g/dL (Normal) Range: 3.5-5.5 Protein, Total, Serum 6.1 g/dL (Normal) Range: 6.0-8.5 27-Pdo-639570:41 LIPOPROTEIN, BLD, BY NMR Comments: PATIENT WAS FASTINGPERFORMED BY: BN [facility] Hdfksbwkte4945 [facility] [id number] BY: CB [facility] Dibrxm3142 Luanne [facility] [id number]; fu 1-16 DB (07941) LP-IR Score 76 (Abnormal) Comments: INSULIN RESISTANCE MARKER <--Insulin Sensitive Insulin Resistant--> Percentile in Reference PopulationInsulin Resistance ScoreLP-IR Score Low 25th 50th 75th High <27 27 45 63 >63LP-IR Score is inaccurate if patient is non-fasting. .The LP-IR score is a laboratory developed i [facility] that has beenassociated with insulin resistance [...] 1600 - 2000 Very High > 2000 99-Wob-761841:41 Hemoglobin Glyclated (HGB Comments: now and every in three months (approximately); PATIENT WAS FASTINGPERFORMED BY: [employer] [id number] BY: [employer] [facility] [id number] A1C) (38260) Hemoglobin A1c 5.2 % (Normal) Range: 4.8-5.6 Comments: . Pre-diabetes: 5.7 - 6.4 Diabetes: >6.4 Glycemic control for adults with diabetes: <7.0 :34 HGB A1C (11887) Comments: PATIENT NOT FASTINGPERFORMED BY: [employer]6370 [facility] [id number] Hemoglobin A1c 5.3 % (Normal) Range: 4.8-5.6 Comments: . Pre-diabetes: 5.7 - 6.4 Diabetes: >6.4 Glycemic control for adults with diabetes: <7.0 :33 CBC WITH MANUAL DIFF (82146) Comments: PATIENT WAS FASTINGPERFORMED BY: [employer] Slxoga0290 [facility] [id number] Immature Grans (Abs) 0.0 {x10E3/uL} (Normal) Range: [...] {x10E3/uL} (Normal) Range: 3.4-10.8 :33 Lipid Panel (79750) Comments: PATIENT WAS FASTINGPERFORMED BY: [facility]6370 [facility] [id number] LDL/HDL Ratio 2.4 {ratio_units} (Normal) Range: 0.0-3.6 Comments: LDL/HDL Ratio Men Women 1/2 Avg.Risk 1.0 1.5 Av g.Risk 3.6 3.2 2X Avg.Risk 6.2 5.0 3X Avg.Risk 8.0 6.1 LDL Cholesterol Calc 115 mg/dL (Abnormal) Range: 0-99 VLDL Cholesterol Tyrese 64 mg/dL (Abnormal) Range: 5-40 HDL Cholesterol 47 mg/dL (Normal) Triglycerides 319 mg/dL (Abnormal) Range: 0-149 Cholesterol, Total 226 mg/dL (Abnormal) Range: 100-199 00-Ngm-64825:33 Metabolic Panel, Comprehensive Comments: PATIENT WAS FASTINGPERFORMED BY: LabCoMorristown Medical CenterHveiys0996 [facility] [id number]; fu 07-23- DB (54580) ALT (SGPT) 15 [iU]/L (Normal) Range: 0-44 [...] Glucose, Serum 95 mg/dL (Normal) Range: 65-99 08-Uhh-584110:14 PSA (Prostate Specific Comments: PATIENT NOT FASTINGPERFORMED BY: Navidea BiopharmaceuticalsMorristown Medical CenterBnicxm3519 [facility] [id number] Information: NURSE DRAW Antigen), Screening (80557) Prostate Specific Ag, 2.0 ng/mL (Normal) Range: 0.0-4.0 Serum Comments: Yany ECLIA methodology. .According to the [place] Urological Association, Serum PSA shoulddecrease and remain at undetectable levels after radicalprostatectomy. The AUA defines biochemical recurrence as an initialPSA value 0.2 ng/mL or greater followed by a subsequent confirmatoryPSA value 0.2 ng/mL or greater.Values obtained with d ifferent assay methods or kits cannot be usedinterchangeably. Results cannot be interpreted as absolute evidenceof the presence or absence of malignant disease. :14 HEPATITIS C ANTIBODY (71873) Comments: PATIENT NOT FASTINGPERFORMED BY: SkiipiNov[facility] [id number] Hep C Virus Ab 0.3 {s/co_ratio} (Normal) Range: 0.0-0.9 Comments: Negative: < 0.8 Indeterminate: 0.8 - 0.9 Positive: > 0.9 . The CDC recommends that a positive HCV antibody result be followed up with a HCV Nucleic Acid Amplification test (572516). 82-Xgu-634433:16 MICROALBUMIN: CREATININE RATIO Comments: PATIENT NOT FASTINGPERFORMED BY: LinkCycle70 [facility] IslandNovant Health Clemmons Medical Center [id number] (83084) AND (51282) Microalb/Creat Ratio 3.2 {mg/g_creat} (Normal) Range: 0.0-30.0 Microalbumin, Urine 4.9 ug/mL (Normal) Creatinine, Urine 154.3 mg/dL (Normal) 58-Pny-111071:16 VITAMIN B12 AND FOLATES Comments: PATIENT NOT FASTINGPERFORMED BY: [facility]ipiNov[facility] Clemm[facility] [id number] (83198) Folate (Folic Acid), Serum 19.8 ng/mL (Normal) Comments: A serum folate concentration of less than 3.1 ng/mL isconsidered to represent clinical deficiency. Vitamin B12 666 pg/mL (Normal) Range: 211-946 12-Wks-232637:16 IRON & TOTAL IRON BINDING Comments: PATIENT NOT FASTINGPERFORMED BY: LinkCycle70 [facility] IslandNovant Health Cle[facility] [id number] Information: NURSE DRAW CAPACITY (89431) Iron Saturation 30 % (Normal) Range: 15-55 Iron, Serum 91 ug/dL (Normal) Range: 38-169 UIBC 215 ug/dL (Normal) Range: 111-343 Iron Bind.Cap.(TIBC) 306 ug/dL (Normal) Range: 250-450 44-Hjk-671610:16 FERRITIN (95449) Comments: PATIENT NOT FASTINGPERFORMED BY: [place] [facility]augussettsHawthorn Center6370 [facility] [id number] Ferritin, Serum 682 ng/mL (Abnormal) Range: 30-400 :23 PSA (PROSTATE SPECIFIC Comments: PATIENT NOT FASTINGPERFORMED BY: [place] [facility]augussettsHawthorn Center6370 [facility] [id number] Information: [id number] ANTIGEN) (67932) Prostate Specific Ag, 1.7 ng/mL (Normal) Range: 0.0-4.0 Serum Comments: Repair ReportIA methodology. .According to the [place] Urological Association, Serum PSA shoulddecrease and remain [...] CREATININE RATIO Comments: PATIENT WAS FASTINGPERFORMED BY: [place] [facility]ussettsHawthorn Center6370 [facility] [id number] (85712) AND (65415) Microalb/Creat Ratio <2.9 {mg/g_creat} (Normal) Range: 0.0-30.0 Microalbumin, Urine <3.0 ug/mL (Normal) Creatinine, Urine 101.8 mg/dL (Normal) :22 METABOLIC PANEL, COMPREHENSIVE Comments: PATIENT WAS FASTINGPERFORMED BY: [place] [facility]ussettsHawthorn Center6370 [facility] [id number] (70618) ALT (SGPT) 13 [iU]/L (Normal) Range: 0-44 [...] Glucose, Serum 90 mg/dL (Normal) Range: 65-99 04-Lqo-66166:22 LIPID PANEL (15592) Comments: PATIENT WAS FASTINGPERFORMED BY: LabCoMorristown Medical CenterRjilvu4615 [facility] [id number] LDL/HDL Ratio 1.2 {ratio_units} (Normal) Range: 0.0-3.6 [...] auto diff Comments: PATIENT WAS FASTINGPERFORMED BY: DONA [employer] Wpjeyo3915 [facility] [id number] Information: [id number] (44462) Immature Grans (Abs) 0.0 {x10E3/uL} (Normal) Range: [...] three months (approximately); PATIENT WAS FASTINGPERFORMED BY: DONA [employer]6370 [facility] [id number]; david Grewal 07-17 (70398) Hemoglobin A1c 4.6 % (Abnormal) Range: 4.8-5.6 Comments: . Pre-diabetes: 5.7 - 6.4 Diabetes: >6.4 Glycemic control for adults with diabetes: <7.0 :55 Ferritin (33504) Comments: PATIENT WAS FASTINGPERFORMED BY: LabBlue Nile Vcmsrp5172 Stroud RoadDublin [place] [id number] Ferritin, Serum 606 ng/mL (Abnormal) Range: 30-400 :55 CALCIFIDIOL (50729) VIT D 25 Comments: PATIENT WAS FASTINGPERFORMED BY: LabCo Xaddem2471 [address] [facility] HospitalDublin [place] [id number] Vitamin D, 25-Hydroxy 64.5 ng/mL (Normal) Range: 30.0-100.0 Comments: Vitamin D deficiency has been defined by the [place] ofSelect Medical Specialty Hospital - Cincinnaticine and an Endocrine Society practice guideline as alevel of serum 25-OH vitamin D less than 20 ng/mL (1,2).The Endocrine Society went on to further define vitamin Dinsufficiency as a level between 21 and 29 ng/mL (2).1. IOM ([place] of Medicine). 2010. Dietary reference intakes for calcium and D. [place]: The National Academies Press.2. Audra MF, Erin NC, Brittani CEDEÑO, et al. Evaluation, treatment, and prevention of vitamin D deficiency: an Endocrine Society clinical practice guideline. JCEM. 2010; 96(7):1911-30. :55 METABOLIC PANEL, COMPREHENSIVE Comments: PATIENT WAS FASTINGPERFORMED BY: LabCo Irnmvx6294 [address] [facility] Hospitalblin [place] [id number] (69826) ALT (SGPT) 18 [iU]/L (Normal) Range: 0-44 [...] Glucose, Serum 96 mg/dL (Normal) Range: 65-99 58-Bjd-08944:55 CBC with auto diff Comments: PATIENT WAS FASTINGPERFORMED BY: LabHawthorn Center6370 [facility] [id number] Information: [id number] (85825) Immature Grans (Abs) 0.0 {x10E3/uL} (Normal) Range: [...] 5.8 {x10E3/uL} (Normal) Range: 3.4-10.8 :10 Ferritin (08668) Comments: PATIENT WAS FASTINGPERFORMED BY: LinkCycle70 [facility] Wel[facility] ServicesECU Health North Hospital [id number] Ferritin, Serum 965 ng/mL (Abnormal) Range: 30-400 :10 LIPID PANEL (48414) Comments: PATIENT WAS FASTINGPERFORMED BY: LinkCycle70 [address] [facility] HospitalBufferBoxECU Health North Hospital [id number] Information: [id number] LDL/HDL Ratio 0.9 {ratio_units} (Normal) Range: 0.0-3.6 [...] CREATININE RATIO Comments: PATIENT WAS FASTINGPERFORMED BY: OpalityECU Health North Hospital [id number] (28302) AND (27771) Microalb/Creat Ratio 3.3 {mg/g_creat} (Normal) Range: 0.0-30.0 Microalbumin, Urine 3.8 ug/mL (Normal) Range: 0.0-17.0 Creatinine, Urine 113.9 mg/dL (Normal) Range: 22.0-328.0 :10 Hemoglobin Glyclated (HGB A1C) Comments: PATIENT WAS FASTINGPERFORMED BY: Navidea BiopharmaceuticalsMorristown Medical CenterNioxuf2986 [facility] [id number]; apt. 11-04-15 (57987) Hemoglobin A1c 4.6 % (Abnormal) Range: 4.8-5.6 Comments: . Pre-diabetes: 5.7 - 6.4 Diabetes: >6.4 Glycemic control for adults with diabetes: <7.0 :56 Lipid Panel (03686) Comments: PATIENT WAS FASTINGPERFORMED BY: Searchdaimon Sbixdj7000 [facility] [id number]; apt. 08-05 LDL/HDL Ratio 0.5 {ratio_units} (Normal) [...] Metabolic Panel, Comments: PATIENT WAS FASTINGPERFORMED BY: Navidea BiopharmaceuticalsMorristown Medical CenterFbemnj0543 [facility] [id number] Information: [id number] Comprehensive (07214) ALT (SGPT) 22 [iU]/L (Normal) Range: 0-44 [...] three months (approximately); PATIENT NOT FASTINGPERFORMED BY: LinkCycle70 [facility] [id number] Information: [id number] A1C) (37551) Hemoglobin A1c 5.1 % (Normal) Range: 4.8-5.6 Comments: . Increased risk for diabetes: 5.7 - 6.4 Diabetes: >6.4 Glycemic control for adults with diabetes: <7.0 :22 Ferritin (51098) Comments: PATIENT NOT FASTINGPERFORMED BY: Skysheet Yjsich5149 StroudFlagshship FitnessNovant Health Clemmons Medical Center [id number] Ferritin, Serum 837 ng/mL (Abnormal) Range: 30-400 :22 Hemoglobin Glyclated (HGB A1C) Comments: now and every in three months (approximately); PATIENT NOT FASTINGPERFORMED BY: [place] PaugussettsHawthorn Center6370 [facility] [id number] (96656) Hemoglobin A1c 5.4 % (Normal) Range: 4.8-5.6 Comments: . Increased risk for diabetes: 5.7 - 6.4 Diabetes: >6.4 Glycemic control for adults with diabetes: <7.0 :02 LIPID PANEL (61293) Comments: PATIENT WAS FASTINGPERFORMED BY: Navidea BiopharmaceuticalsMorristown Medical CenterLxieyt3423 [facility] [id number] LDL/HDL Ratio 1.3 {ratio_units} (Normal) Range: 0.0-3.6 [...] PANEL, COMPREHENSIVE Comments: PATIENT WAS FASTINGPERFORMED BY: Nav[facility] BiopharmaceuticalsMorristown Medical CenterDrachv4173 [facility] [id number] (60938) ALT (SGPT) 25 [iU]/L (Normal) Range: 0-44 [...] Glucose, Serum 105 mg/dL (Abnormal) Range: 65-99 57-Hcs-28951:02 CBC W/AUTO DIFF WBC Comments: PATIENT WAS FASTINGPERFORMED BY: LabCoMorristown Medical CenterZlglmo9652 [facility] [id number] Information: [id number] (05419) Immature Grans (Abs) 0.0 {x10E3/uL} (Normal) Range: [...] 8.3 {x10E3/uL} (Normal) Range: 3.4-10.8 :02 CALCIFIDIOL (89234) VIT D 25 Comments: PATIENT WAS FASTINGPERFORMED BY: [employer] [id number] Vitamin D, 25-Hydroxy 77.5 ng/mL (Normal) Range: 30.0-100.0 Comments: Vitamin D deficiency has been defined by the [place] ofMedicine and an Endocrine Society practice guideline as alevel of serum 25-OH vitamin D less than 20 ng/mL (1,2).The Endocrine Society went on to further define vitamin Dinsufficiency as a level between 21 and 29 ng/mL (2).1. IOM ([place] of Medicine). 2010. Dietary reference intakes for [...] mg/dL (Normal) Range: 200-370 Comments: Performed at: [address] [id number] Director: Rickey Leiva PhD, Phone: [phone] 24-Nov-20148:12 IRON BINDING CAPACITY (TIBC) Comments: PATIENT NOT FASTINGPERFORMED BY: [facility] HospitalCoMorristown Medical CenterMhyiqe8669 [facility] [id number] (52086) Iron Saturation 28 % (Normal) Range: 15-55 Iron, Serum 90 ug/dL (Normal) Range: 40-155 UIBC 237 ug/dL (Normal) Range: 150-375 Iron Bind.Cap.(TIBC) 327 ug/dL (Normal) Range: 250-450 :12 CBC WITH MANUAL DIFF Comments: PATIENT NOT FASTINGPERFORMED BY: LabCoMorristown Medical CenterCngkqd5915 [facility] [id number] Information: [id number] (88558) Immature Grans (Abs) 0.0 {x10E3/uL} (Normal) Range: [...] 8.7 {x10E3/uL} (Normal) Range: 3.4-10.8 :12 FERRITIN (83515) Comments: PATIENT NOT FASTINGPERFORMED BY: LabCoMorristown Medical CenterGxmwcw8301 [facility] [id number] Ferritin, Serum 798 ng/mL (Abnormal) Range: 30-400 :35 HgA1C , Office (26865) HgA1C , Office 6.4 % (Normal) Range: 4.6 - 7.1 :35 Blood Glucose , Office (66191) Blood Glucose , Office 107 (Normal) :09 METABOLIC PANEL, Comments: PATIENT WAS FASTINGPERFORMED BY: LabCoMorristown Medical CenterAflvjf4846 [facility] [id number] BY: LabCo[address] [id number] [facility] (80066) ALT (SGPT) 14 [iU]/L (Normal) Range: 0-44 [...] mg/dL (Abnormal) Range: 65-99 :09 LIPID PANEL (68879) Comments: PATIENT WAS FASTINGPERFORMED BY: LinkCycle70 [facility] [id number] BY: [employer] [id number] LDL/HDL Ratio 2.9 {ratio_units} (Normal) Range: 0.0-3.6 [...] Cholesterol, Total 162 mg/dL (Normal) Range: 100-199 :09 CBC WITH MANUAL DIFF Comments: PATIENT WAS FASTINGPERFORMED BY: LinkCycle70 [facility] [id number] BY: [employer] [id number] Inf ormation: [id number] (11452) Immature Grans (Abs) 0.0 {x10E3/uL} (Normal) Range: [...] 7.4 {x10E3/uL} (Normal) Range: 3.4-10.8 :09 Ferritin (85652) Comments: PATIENT WAS FASTINGPERFORMED BY: [employer] Ylqnro9609 [facility] [id number] BY: [employer] [id number] Ferritin, Serum 793 ng/mL (Abnormal) Range: 30-400 :09 TESTOSTERONE FREE (79168) Comments: PATIENT WAS FASTINGPERFORMED BY: [employer] Kbqnkq[address] [place] [address] [id number] BY: [place] [address]ussetts[address] [id number] Free Testosterone(Direct) 1.8 pg/mL (Abnormal) Range: 7.2-24.0 :09 PSA (PROSTATE SPECIFIC Comments: PATIENT WAS FASTINGPERFORMED BY: LabHawthorn Center6370 [facility] [id number] BY: [address] [id number] ANTIGEN) (V76.44) Prostate Specific Ag, 1.0 ng/mL (Normal) Range: 0.0-4.0 Serum Comments: Yany ECLIA methodology. .According to the [place] Urological Association, Serum PSA shoulddecrease and remain [...] of malignant disease. :06 Metabolic Panel, Basic (40857) Comments: PATIENT WAS FASTINGPERFORMED BY: Nav[facility] BiopharmaceuticalsMorristown Medical CenterAtnqnu2325 [facility] [id number] Calcium, Serum 10.3 mg/dL (Abnormal) Range: 8.7-10.2 [...] mg/dL (Abnormal) Range: 65-99 :06 CBC (Auto) (52832) Comments: PATIENT WAS FASTINGPERFORMED BY: [facility] BiopharmaceuticalsMorristown Medical CenterBkyypq1492 [facility] [id number] Information: [id number] Platelets 279 {x10E3/uL} (Normal) Range: 150-379 RDW 13.4 % (Normal) Range: 12.3-15.4 MCH 28.7 pg (Normal) Range: 26.6-33.0 MCHC 34.1 g/dL (Normal) Range: 31.5-35.7 MCV 84 fL (Normal) Range: 79-97 Hematocrit 48.1 % (Normal) Range: 37.5-51.0 Hemoglobin 16.4 g/dL (Normal) Range: 12.6-17.7 RBC 5.72 {x10E6/uL} (Normal) Range: 4.14-5.80 WBC 7.4 {x10E3/uL} (Normal) Range: 3.4-10.8 :56 Blood Glucose , Office (20179) Blood Glucose , Office 91 (Normal) :35 HFE GENE (76921) Comments: PATIENT NOT FASTINGPERFORMED BY: TG [facility] IBS2114 NEL[address] Duarte DriveRMOUNT NITTANY MEDICAL CENTER [id number] BY: CB [facility] Nogjnw2212 [facility] [id number] Information: [id number] Hereditary Hemochromatosis 63HET (Normal) Comments: Result: CARRIERSingle mutation (H63D) identified .Interpretation: This patient's sample was analyzed for the hereditaryhemochromatosis (HH) mutations C282Y, H63D, and S65C. A single copyof H63D was identified. Results for C282Y and S65C were negative.This person is most likely an unaffected carrier. Approximately 1 in9 Caucasians a re carriers of HH. The mutations analyzed by Navidea Biopharmaceuticalsrpare most common in the population. Because this [...] and Walker AP. (2000). Cee Test 4:97-101.Km PILLAI et al. (1999). AM J Prev ed 16:134-140.Lilibeth Biggs (2002). Lancet 360(1721):1673-81.Ludivina Min et al. (2002). Blood Cells, Molecules. andDiseases. 29(3):418-432.Caden Santana et al. (2003). Cee Med. 5(1):1-8.Km ME et al. (2003). Cee Med. 5(4):304-10.Genetic counselors are available for health care providers to discussresults at [phone]. . Richard Canales, PhD Brea Diehl, PhD Josiane Lorenzo, PhD Venessa Tobias, PhD Amirah Payne, PhD Isabell Booker MD, PhD S LISBET Parsons, PhD :35 FERRITIN (00453) Comments: PATIENT NOT FASTINGPERFORMED BY: [employer] KTS5657 [facility] [id number] BY: [employer]6370 [facility] [id number] Ferritin, Serum 712 ng/mL (Abnormal) Range: 30-400 :06 HgA1C , Office (12352) HgA1C , Office 6.5 % (Normal) Range: 4.6 - 7.1 :06 Blood Glucose , Office (07814) Blood Glucose , Office 134 (Normal) :25 Uric Acid Blood (01625) Comments: PATIENT WAS FASTINGPERFORMED BY: [employer]6370 StroudPhilSmileECU Health North Hospital [id number] BY: [facility] BiopharmaceuticalsRichard [place] [address] [facility] [id number] Uric Acid, Serum 6.3 mg/dL (Normal) Range: 3.7-8.6 Comments: Therapeutic target for gout patients: <6.0 :25 TESTOSTERONE FREE (40370) Comments: PATIENT WAS FASTINGPERFORMED BY: LabSheena Ville 4810770 [facility] [id number] BY: [address] [id number] Free Testosterone(Direct) 4.1 pg/mL (Abnormal) Range: 7.2-24.0 :25 CALCIFEDIOL (35426) Comments: PATIENT WAS FASTINGPERFORMED BY: LabSheena V[place] 4810770 [facility] [id number] BY: [address] [id number] Vitamin D, 25-Hydroxy 50.9 ng/mL (Normal) Range: 30.0-100.0 Comments: Vitamin D deficiency has been defined by the [place] ofMedicine and an Endocrine Society practice guideline as alevel of serum 25-OH vitamin D less than 20 ng/mL (1,2).The Endocrine Society went on to further define vitamin Dinsufficiency as a level between 21 and 29 ng/mL (2).1. IOM ([place] of Medicine). 2010. Dietary reference intakes for calcium and D. [place]: The National Academies Press.2. Audra MF, Erin GRIFFITHS, Brittani CEDEÑO, et al. Evaluation, treatment, and prevention of vitamin D deficiency: an Endocrine Society clinical practice guideline. JCEM. 2010; 96(7):1911-30. :25 MICROALBUMIN: CREATININE Comments: PATIENT WAS FASTINGPERFORMED BY: LabHawthorn Center6370 [facility] [id number] BY: [address] [id number] RATIO (60738) AND (36673) Microalb/Creat Ratio 6.4 {mg/g_creat} (Normal) Range: 0.0-30.0 Creatinine, Urine 98.6 mg/dL (Normal) Range: 22.0-328.0 Microalbumin, Urine 6.3 ug/mL (Normal) Range: 0.0-17.0 :25 METABOLIC PANEL, Comments: PATIENT WAS FASTINGPERFORMED BY: Domainexlin6370 [facility] [id number] BY: Lab[address] [id number] COMPREHENSIVE (70794) ALT (SGPT) 31 [iU]/L (Normal) Range: 0-44 [...] mg/dL (Abnormal) Range: 65-99 :25 LIPID PANEL (71395) Comments: PATIENT WAS FASTINGPERFORMED BY: impok LabMayday PAC Rmvciy4129 [facility] [id number] BY: LabCo[address] [id number] HDL Cholesterol 25 mg/dL (Abnormal) Comments: According [...] 100-199 Triglycerides 408 mg/dL (Abnormal) Range: 0-149 74-Aob-99901:25 CBC WITH MANUAL DIFF Comments: PATIENT WAS FASTINGPERFORMED BY: CB [facility] Klikkr2433 [facility] [id number] BY: BN [facility] Ktoklordde2156 [facility] [id number] Inf ormation: [id number] (36680) Immature Grans (Abs) 0.0 {x10E3/uL} (Normal) Range: [...] (Normal) Range: 3.4-10.8 :18 HgA1C , Office (86158) HgA1C , Office 5.8 % (Normal) Range: 4.6 - 7.1 :18 Blood Glucose , Office (87658) Blood Glucose , Office 134 (Normal) :10 CBC WITH MANUAL DIFF Comments: PATIENT WAS FASTINGPERFORMED BY: CB [facility] Lkwutg2191 [facility] [id number] BY: BN [facility] Mbfgdavjge0427 [facility] [id number] Inf ormation: [id number] (18943) Immature Grans (Abs) 0.0 {x10E3/uL} (Normal) Range: [...] 8.8 {x10E3/uL} (Normal) Range: 4.0-10.5 :10 Ferritin (81972) Comments: PATIENT WAS FASTINGPERFORMED BY: Tadpoles [facility] [id number] BY: [place] [id number] Ferritin, Serum 472 ng/mL (Abnormal) Range: 30-400 :10 LIPID PANEL (82225) Comments: PATIENT WAS FASTINGPERFORMED BY: Domainexlin[address] [place] [address] [id number] BY: [employer] [id number] LDL/HDL Ratio 2.3 {ratio_units} (Normal) Range: 0.0-3.6 [...] METABOLIC PANEL, Comments: PATIENT WAS FASTINGPERFORMED BY: Gient [address] [id number] BY: [address] [id number] COMPREHENSIVE (66173) ALT (SGPT) 21 [iU]/L (Normal) Range: 0-44 [...] MICROALBUMIN: CREATININE Comments: PATIENT WAS FASTINGPERFORMED BY: CB [facility] Jiagdl2934 [facility] [id number] BY: BN [facility] [address] [id number] RATIO (82611) AND (43870) Microalb/Creat Ratio 5.7 {mg/g_creat} (Normal) Range: 0.0-30.0 Microalbumin, Urine 6.6 ug/mL (Normal) Range: 0.0-17.0 Creatinine, Urine 115.6 mg/dL (Normal) Range: 22.0-328.0 :10 PSA (PROSTATE SPECIFIC Comments: PATIENT WAS FASTINGPERFORMED BY: [employer] BiopharmaceuticalsMimbres Memorial HospitalKxsyfu8773 [facility] [id number] BY: [address] [id number] ANTIGEN) (V76.44) Prostate Specific Ag, 1.2 ng/mL (Normal) Range: 0.0-4.0 Serum Comments: Repair ReportIA methodology. .According to the [place] Urological Association, Serum PSA shoulddecrease and remain at undetectable levels after radicalprostatectomy. The AUA defines biochemical recurrence as an initialPSA value 0.2 ng/mL or greater followed by a subsequent confirmatoryPSA value 0.2 ng/mL or greater.Values obtained with d ifferent assay methods or kits cannot be usedinterchangeably. Results cannot be interpreted as absolute evidenceof the presence or absence of malignant disease. :10 TESTOSTERONE FREE (37838) Comments: PATIENT WAS FASTINGPERFORMED BY: [employer] Besrgt0905 [facility] [id number] BY: [address] [id number] Free Testosterone(Direct) 11.2 pg/mL (Normal) Range: 7.2-24.0 :10 Uric Acid Blood (52162) Comments: PATIENT WAS FASTINGPERFORMED BY: [employer] Qisjnx6261 [facility] [id number] BY: [address] [id number] Uric Acid, Serum 5.7 mg/dL (Normal) Range: 3.7-8.6 Comments: Therapeutic target for gout patients: <6.0 :03 LIPID PANEL (67588) Comments: PATIENT WAS FASTINGPERFORMED BY: Nav[employer] BiopharmaceuticalsJamie Ville 4935370 [facility] [id number] Information: [id number] LDL/HDL Ratio 2.6 {ratio_units} (Normal) Range: 0.0-3.6 LDL Cholesterol Calc 67 mg/dL (Normal) Range: 0-99 VLDL Cholesterol Tyrese 78 mg/dL (Abnormal) Range: 5-40 HDL Cholesterol 26 mg/dL (Abnormal) Comments: According to ATP-III Guidelines, HDL-C >59 mg/dL is considered anegative risk factor for CHD. Triglycerides 390 mg/dL (Abnormal) Range: 0-149 Cholesterol, Total 171 mg/dL (Normal) Range: 100-199 :50 HgA1C , Office (47575) HgA1C , Office 6.7 % (Normal) Range: 4.6 - 7.1 :50 Blood Glucose , Office (06685) Blood Glucose , Office 109 (Normal) :06 CBC WITH MANUAL DIFF Comments: PATIENT WAS FASTINGPERFORMED BY: CB [facility] Ntbjcg6219 [facility] [id number] BY: BN [facility] Llbehvhhfy5981 [facility] [id number] Inf ormation: [id number] (28408) Immature Grans (Abs) 0.0 {x10E3/uL} (Normal) Range: [...] 7.5 {x10E3/uL} (Normal) Range: 4.0-10.5 :06 Ferritin (65017) Comments: PATIENT WAS FASTINGPERFORMED BY: Tadpoles [facility] [id number] BY: [employer] [id number] Ferritin, Serum 501 ng/mL (Abnormal) Range: 30-400 :06 LIPID PANEL (51761) Comments: PATIENT WAS FASTINGPERFORMED BY: Tadpoles [facility] [id number] BY: [employer] [id number] VLDL Cholesterol Tyrese VLDLCH mg/dL (Normal) Range: [...] METABOLIC PANEL, Comments: PATIENT WAS FASTINGPERFORMED BY: Tadpoles [facility] [id number] BY: [place] [id number] COMPREHENSIVE (09750) ALT (SGPT) 32 [iU]/L (Normal) Range: 0-44 [...] MICROALBUMIN: CREATININE Comments: PATIENT WAS FASTINGPERFORMED BY: LinkCycle70 [facility] [id number] BY: LabBlue NileRichard [place] [address] [facility] [id number] RATIO (64786) AND (24854) Microalb/Creat Ratio 5.8 {mg/g_creat} (Normal) Range: 0.0-30.0 Microalbumin, Urine 6.4 ug/mL (Normal) Range: 0.0-17.0 Creatinine, Urine 109.8 mg/dL (Normal) Range: 22.0-328.0 :06 PSA (PROSTATE SPECIFIC Comments: PATIENT WAS FASTINGPERFORMED BY: LinkCycle70 [facility] [id number] BY: [address] [id number] ANTIGEN) (V76.44) Prostate Specific Ag, 1.2 ng/mL (Normal) Range: 0.0-4.0 Serum Comments: Yany ECLIA methodology. .According to the [place] Urological Association, Serum PSA shoulddecrease and remain at undetectable levels after radicalprostatectomy. The AUA defines biochemical recurrence as an initialPSA value 0.2 ng/mL or greater followed by a subsequent confirmatoryPSA value 0.2 ng/mL or greater.Values obtained with d ifferent assay methods or kits cannot be usedinterchangeably. Results cannot be interpreted as absolute evidenceof the presence or absence of malignant disease. :06 TESTOSTERONE FREE (23847) Comments: PATIENT WAS FASTINGPERFORMED BY: Nav[employer] BiopharmaceuticalsJamie Ville 4935370 [facility] [id number] BY: [address] [id number] Free Testosterone(Direct) 13.7 pg/mL (Normal) Range: 7.2-24.0 :06 Uric Acid Blood (43228) Comments: PATIENT WAS FASTINGPERFORMED BY: [employer] BiopharmaceuticalsMorristown Medical CenterFrzvaf3538 [facility] [id number] BY: [address] [id number] Uric Acid, Serum 6.0 mg/dL (Normal) Range: 3.7-8.6 Comments: Therapeutic target for gout patients: <6.0 :49 HgA1C , Office (84335) HgA1C , Office 6.8 % (Normal) Range: 4.6 - 7.1 :49 Blood Glucose , Office (16237) Blood Glucose , Office 176 (Normal) :45 HgA1C , Office (82975) HgA1C , Office 11.5 % (Abnormal) Range: 4.6 - 7.1 Comments: not put in on 12-30:01 HgA1C , Office (84267) HgA1C , Office 7.4 % (Abnormal) Range: 4.6 - 7.1 :01 Blood Glucose , Office (94805) Blood Glucose , Office 142 (Normal) :17 CBCMD RBCM NORM C+C {NORMAL} (Normal) PLTM [...] 4.6-6.2 WBC 9.3 K/mm3 (Normal) Range: 4.4-11.0 :17 CMP GAP 6 (Normal) Range: 5-15 CO2 [...] performed using the TPSA assay method for theHitMeUp chemistry system. Values obtained with differentassay methods cannot be used interchangably.When ch anging PSA assays in the course of monitoring apatient, additional sequential testing should be carriedout to confirm baseline values. :17 TESTOF 11.1 pg/mL (Normal) Range: 6.8-21.5 Comments: Performed at: [address] [id number] Director: Elton Gallego MD, Phone: [phone] 30-Rga-099780:17 URIC 4.4 mg/dL (Normal) Range: 3.5-7.2 79-Kdu-175199:12 HgA1C , Office (73685) HgA1C , Office 7.2 % (Abnormal) Range: 4.6 - 7.1 78-Azc-509307:12 Blood Glucose , Office (12805) Blood Glucose , Office 113 (Normal) :01 [...] >240 mg/dL High Risk :37 TEST FR 249328 17.0 pg/mL (Normal) Comments: appt 01/04/12 Range: 6.8-21.5 Comments: Performed at: - [facility] [address] [id number] Director: Dayanna Red MD, Phone: [phone] at: - [facility] [place] [address]Ikg Director: Elton Gallego MD, Phone: [phone] :37 VIT D,25 93070 39.6 ng/mL (Normal) Range: 30.0-100.0 Comments: Vitamin D deficiency has been defined by the [place] ofMedicine and an Endocrine Society practice guideline as alevel of serum 25-OH vitamin D less than 20 ng/mL (1,2).The Endocrine Society went on to further define vitamin Dinsufficiency as a level between 21 and 29 ng/mL (2).1. IOM ([place] of Medicine). 2011. Dietary reference intakes for calcium and D. [place]: The National Academies Press.2. Audra MF, Erin NC, Brittani CEDEÑO, et al. Evaluation, treatment, and prevention of vitamin D deficiency: an Endocrine Society clinical practice guideline. JCEM. 2010; 96(5):7971-30. :12 CBCD,SMEAR DIFF RED CELL MORPH SeeNote {NORMAL} [...] :09 FERRITIN 403 ng/mL (Abnormal) Range: 26-388 28-Jcb-952467:09 LIPID VLDL 101 mg/dL (Abnormal) Range: 5-40 [...] 200-240 mg/dL Borderline >240 mg/dL High Risk 60-Lhc-749282:09 COMP METABOLIC GAP 10 (Normal) Range: 5-15 [...] 200 mg/dLsuggests DIABETES MELLITUS per A.D.A. criteria. 00-Esx-552496:04 COMPLETE UA MUCUS, URINE 4+ {/hpf} (Normal) [...] (Normal) COLOR YELLOW (Normal) :53 TESTOSTERONE FREE (54269) Comments: PATIENT NOT FASTINGPERFORMED BY: LabCoRichard [place] [address] [facility] [id number] Information: [id number]; appt 11/02/11 Free Testosterone(Direct) 4.3 pg/mL (Abnormal) Range: 6.8-21.5 :53 Ferritin (06967) Comments: PATIENT NOT FASTINGPERFORMED BY: [facility] Jnixyb8469 [facility] [id number] Ferritin, Serum 588 ng/mL (Abnormal) Range: 30-400 :53 CALCIFIDIOL (77719) VIT D Comments: PATIENT NOT FASTINGPERFORMED BY: [facility] Wtvxfk8639 [facility] [id number] Information: [id number], 2ND ORDER NO DRAW FEE 25 Vitamin D, 25-Hydroxy 31.2 ng/mL (Normal) Range: 30.0-100.0 Comments: Vitamin D deficiency has been defined by the [place] ofMedicine and an Endocrine Society practice guideline as alevel of serum 25-OH vitamin D less than 20 ng/mL (1,2).The Endocrine Society went on to further define vitamin Dinsufficiency as a level between 21 and 29 ng/mL (2).1. IOM ([place]). 2011. Dietary reference intakes for calcium and D. [place]: The National Academies Press.2. Audra ZUNIGA, Erin GRIFFITHS, Brittani CEDEÑO, et al. Evaluation, treatment, and prevention of vitamin D deficiency: an Endocrine Society clinical practice guideline. JCEM. 2010; 96(7): 1911-30. Please note reference interval change :00 Ferritin (93064) Comments: PERFORMED BY: [employer] [id number] BY: LabBlue Nile Tfllcn3773 Stroud RoadDublin [place] [id number] Ferritin, Serum 862 ng/mL (Abnormal) Range: 30-400 :00 Vitamin B-12 (cyanocobalamin) Comments: PERFORMED BY: [employer] [address] [id number] BY: [employer] Nfcrxr7653 Stroud RoadDublin [place] [id number] (92428) Vitamin B12 467 pg/mL (Normal) Range: 211-946 :00 CALCIFIDIOL (71738) VIT D Comments: PERFORMED BY: [employer] [address] [id number] BY: [employer] [address] [facility] District HospitalDublin [place] [id number] 25 Vitamin D, 25-Hydroxy 7.6 ng/mL (Abnormal) Range: 32.0-100.0 Comments: Effective October 08, 2011 Vitamin D, 25-Hydroxy reference intervals will be changing to 30-100. .Recent studies consider the lower li ash of 32.0 ng/mL to be athreshold for optimal health.Alber WATTS. J Nutr. 2004;135(2):317-22. :00 TESTOSTERONE FREE (97440) Comments: PERFORMED BY: [employer] [id number] BY: [employer] BiopharmaceuticalsMimbres Memorial HospitalJewxsw3493 Stroud RoadDublin [place] [id number] Free Testosterone(Direct) 3.1 pg/mL (Abnormal) Range: 6.8-21.5 :45 HgA1C , Office (19171) HgA1C , Office 6.8 % (Normal) Range: 4.6 - 7.1 :45 Blood Glucose , Office (72184) Blood Glucose , Office 132 (Normal) :00 FSH, Serum Comments: PERFORMED BY: [place] [facility]ussettsHawthorn Center6370 [facility] [id number]; appt 09/21/11 FSH 4.1 m[iU]/mL (Normal) Range: 1.5-12.4 :00 Luteinizing Hormone(LH), S Comments: PERFORMED BY: [employer] Yusxll0003 [facility] [id number] LH 3.4 m[iU]/mL Range: 1.7-8.6 (Normal) Methylmalonic Acid, 165 nmol/L Comments: PERFORMED BY: [address] [id number] BY: [place] [facility]ussettsHawthorn Center6370 [facility] [id number] :00 Serum (Normal) Range: 73-376 Comments: The reference range for methylmalonic acid has been set at +3sd abovethe mean for healthy blood bank donors. In the clinical assessment ofpatients with megaloblastic anemias a cutoff of +3sd provides gr eaterspecificity in the diagnosis of the vitamin deficiency states,despite the sacrifice of some sensitivity. Written Authorization WAR (Normal) Comments: PERFORMED BY: [place] [facility]settsHawthorn Center6370 [facility] [id number] :00 Comments: Written Authorization Received.Authorization received from SAMINA GOMEZ [id number] by Kristen Neri :57 Microscopic Examination Comments: PATIENT WAS FASTINGPERFORMED BY: [place] [facility]ussettsHawthorn Center6370 [facility] [id number] Bacteria None seen (Normal) Cast Type Hyaline casts (Normal) Casts Present {/lpf} (Abnormal) Epithelial Cells (non renal) None seen {/hpf} (Normal) Range: 0 - 10 RBC 0-3 {/hpf} (Normal) Range: 0 - 3 WBC 0-5 {/hpf} (Normal) Range: 0 - 5 :57 Uric Acid Blood (54579) Comments: PATIENT WAS FASTINGPERFORMED BY: [place] [facility]ussettsHawthorn Center6370 [facility] [id number] Uric Acid, Serum 5.3 mg/dL (Normal) Range: 3.7-8.6 Comments: Therapeutic target for gout patients: <6.0 :57 URINALYSIS, W/ MICRO (54614) Comments: PATIENT WAS FASTINGPERFORMED BY: [facility]6370 [facility] [id number] Microscopic Examination See below: (Normal) Microscopic Examination MICRON (Normal) Comments: Microscopic follows if indicated. Nitrite, Urine Negative (Normal) Urobilinogen,Semi-Qn 0.2 mg/dL (Normal) Range: 0.0-1.9 Bilirubin Negative (Normal) Occult Blood Negative (Normal) Ketones Negative (Normal) Glucose Negative (Normal) Protein Negative (Normal) WBC Esterase Negative (Normal) Appearance Clear (Normal) Urine-Color Yellow (Normal) pH 6.5 (Normal) Range: 5.0-7.5 Specific Babcock 1.024 (Normal) Range: 1.005-1.030 :57 METABOLIC PANEL, COMPREHENSIVE Comments: PATIENT WAS FASTINGPERFORMED BY: [place] [facility]ussettsHawthorn Center6370 [facility] [id number] (82656) ALT (SGPT) 24 [iU]/L (Normal) Range: 0-55 [...] mg/dL (Abnormal) Range: 65-99 :57 LIPID PANEL (60028) Comments: PATIENT WAS FASTINGPERFORMED BY: [facility]EC[facility] [id number] VLDL Cholesterol Tyrese VLDLCH mg/dL (Normal) Range: [...] MANUAL DIFF Comments: PATIENT WAS FASTINGPERFORMED BY: [employer]6370 [facility] [id number] Information: [id number]; appt 09/06/11 (50258) Immature Grans (Abs) 0.0 {x10E3/uL} (Normal) Range: [...] (Normal) Range: 4.0-10.5 :56 Uric Acid Blood (45442) Comments: PATIENT WAS FASTINGPERFORMED BY: [facility] BiopharmaceuticalsMorristown Medical CenterHtzoqi0361 [facility] [id number] Uric Acid, Serum 5.0 mg/dL (Normal) Range: 3.7-8.6 Comments: Therapeutic target for gout patients: <6.0 :56 URINALYSIS, W/ MICRO (56390) Comments: PATIENT WAS FASTINGPERFORMED BY: [employer] [facility] [id number] Microscopic Examination See below: (Normal) Bilirubin Negative (Normal) Microscopic Examination MICRON (Normal) Comments: Microscopic follows if indicated. Nitrite, Urine Negative (Normal) Occult Blood Negative (Normal) Urobilinogen,Semi-Qn 0.2 mg/dL (Normal) Range: 0.0-1.9 Glucose Negative (Normal) Ketones Negative (Normal) Protein Negative (Normal) Appearance Clear (Normal) pH 6.5 (Normal) Range: 5.0-7.5 Urine-Color Yellow (Normal) WBC Esterase Negative (Normal) Specific Babcock 1.020 (Normal) Range: 1.005-1.030 86-Onz-03227:56 METABOLIC PANEL, COMPREHENSIVE Comments: PATIENT WAS FASTINGPERFORMED BY: [facility] Wndjlx7191 [facility] [id number] (55843) A/G Ratio 1.7 (Normal) Range: 1.1-2.5 Alkaline [...] mg/dL (Abnormal) Range: 65-99 :56 LIPID PANEL (81003) Comments: PATIENT WAS FASTINGPERFORMED BY: [employer]70 [facility] [id number] LDL/HDL Ratio 2.1 {ratio_units} (Normal) Range: 0.0-3.6 Cholesterol, Total 151 mg/dL (Normal) Range: 100-199 HDL Cholesterol 36 mg/dL (Abnormal) Comments: According to ATP-III Guidelines, HDL-C >59 mg/dL is considered anegative risk factor for CHD. LDL Cholesterol Calc 74 mg/dL (Normal) Range: 0-99 Triglycerides 206 mg/dL (Abnormal) Range: 0-149 VLDL Cholesterol Tyrese 41 mg/dL (Abnormal) Range: 5-40 :56 CBC WITH MANUAL DIFF Comments: PATIENT WAS FASTINGPERFORMED BY: [employer]6370 [facility] [id number] Information: [id number], NO DRAW FEE 2ND OR NEIL (79748) Immature Grans (Abs) 0.0 {x10E3/uL} (Normal) Range: [...] Microscopic Examination Comments: PATIENT WAS FASTINGPERFORMED BY: LabHawthorn Center6370 [facility] [id number] Bacteria Few (Normal) Mucus Threads Present (Normal) [...] clinically suspiciousabnormality. Dictated on 04/09/11 0750 by Xiomara Thornton MDribed on 04/09/11 0913 by ITS IMPORTSign by Hood Thornton MD on 04/09/11 09 14 Sign by: Hood Thornton MD 87-Bfp-41996:36 BREAST UNILATERAL Radiology Report See Note (Normal) [...] 04/09/11 1030 Sign by: Hood Thornton MD 48-Wny-08815:54 TSH (49582) Comments: PATIENT WAS FASTINGPERFORMED BY: [employer] [facility] [id number] Information: [id number] TSH 2.330 {uIU/mL} (Normal) Range: 0.450-4.500 46-Vca-78676:54 PROLACTIN (90178) Comments: PATIENT WAS FASTINGPERFORMED BY: [employer] Lhayaq3051 [facility] [id number] Prolactin 14.7 ng/mL (Normal) Range: 4.0-15.2 :54 HCG (HUMAN CHORIONIC Comments: PATIENT WAS FASTINGPERFORMED BY: [facility]settsHawthorn Center6370 [facility] [id number] GONADOTROPIN) (82651) hCG,Beta Subunit,Qual,Serum Negative m[iU]/mL Comments: . Negative <6Qualitative HCG reference interval applies only for pregnancyevaluation. (Normal) :55 Blood Glucose , Office (67800) Blood Glucose , Office 105 (Normal) :55 HgA1C , Office (90251) HgA1C , Office 6.1 % (Normal) Range: 4.6 - 7.1 :35 PSA (PROSTATE SPECIFIC Comments: PATIENT NOT FASTINGPERFORMED BY: [place] [facility]tsMid [facility] Qemoep5949 [facility] [id number] Information: [id number] ANTIGEN) (V76.44) Prostate Specific Ag, 1.0 ng/mL (Normal) Range: 0.0-4.0 Serum Comments: Primordial ECLIA methodology. .According to the [place] Urological Association, Serum PSA shoulddecrease and remain [...] Microscopic Examination Comments: PATIENT WAS FASTINGPERFORMED BY: [place] [facility]ussettsHawthorn Center6370 [facility] [id number] Bacteria None seen (Normal) Epithelial Cells (non None seen {/hpf} Range: 0 - 10 renal) (Normal) RBC None seen {/hpf} Range: 0 - 3 (Normal) WBC 0-5 {/hpf} (Normal) Range: 0 - 5 C difficile Toxins Negative (Normal) Comments: PERFORMED BY: [facility]settsHawthorn Center6370 [facility] [id number] 4:25 A+B, EIA :25 Ova + Parasite Exam Comments: PERFORMED BY: [facility]tsMid [facility] [employer] [facility] [id number] Result 1 NOCP (Normal) Comments: No ova, cysts, or parasites seen. Ova + Parasite Exam Final report (Normal) Comments: These results were obtained using wet preparation(s) and trichromestained smear. This test does not include testing for Cryptosporidiumparvum, Cyclospora, or Microsporidia. :25 Stool Culture Comments: PERFORMED BY: [facility]ts[facility] [employer] [facility] [id number] Information: SRC:ST E coli Shiga Toxin EIA Negative (Normal) Result 1 NCI (Normal) Comments: No Campylobacter species isolated. Campylobacter Culture Final report (Normal) Result 1 NSS (Normal) Comments: No Salmonella or Shigella recovered. Salmonella/Shigella Screen Final report (Normal) :43 URINALYSIS, W/ MICRO (44704) Comments: PATIENT WAS FASTINGPERFORMED BY: [employer] Zuxink1006 [facility] [id number] Microscopic Examination See below: (Normal) Bilirubin Negative (Normal) Glucose Negative (Normal) Ketones Negative (Normal) Microscopic Examination MICRON (Normal) Comments: Microscopic follows if indicated. Nitrite, Urine Negative (Normal) Occult Blood Negative (Normal) Urobilinogen,Semi-Qn 0.2 mg/dL (Normal) Range: 0.0-1.9 Appearance Clear (Normal) Protein Negative (Normal) Urine-Color Yellow (Normal) WBC Esterase Negative (Normal) pH 7.0 (Normal) Range: 5.0-7.5 Specific Babcock 1.021 (Normal) Range: 1.005-1.030 :43 METABOLIC PANEL, COMPREHENSIVE Comments: PATIENT WAS FASTINGPERFORMED BY: [facility]settsMid [facility] Grygjo6061 [facility] [id number] (09734) ALT (SGPT) 17 [iU]/L (Normal) Range: 0-55 [...] Glucose, Serum 114 mg/dL (Abnormal) Range: 65-99 26-Sep-20109:43 LIPID PANEL (36209) Comments: PATIENT WAS FASTINGPERFORMED BY: LabCoMorristown Medical CenterLhldng6281 [facility] [id number] LDL/HDL Ratio 2.0 {ratio_units} (Normal) Range: 0.0-3.6 [...] MANUAL DIFF Comments: PATIENT WAS FASTINGPERFORMED BY: LabCoMorristown Medical CenterShuodf8038 [facility]Cass [facility] [id number] Information: [id number] (75315) Baso (Absolute) 0.1 {x10E3/uL} (Normal) Range: 0.0-0.2 [...] Panel (7) Comments: PATIENT WAS FASTINGPERFORMED BY: [employer] Eaycvy3917 [facility] [id number] Albumin, Serum 4.2 g/dL (Normal) Range: 3.5-5.5 Alkaline Phosphatase, S 40 [iU]/L (Normal) Range: 25-150 ALT (SGPT) 15 [iU]/L (Normal) Range: 0-55 AST (SGOT) 18 [iU]/L (Normal) Range: 0-40 Bilirubin, Direct 0.13 mg/dL (Normal) Range: 0.00-0.40 Bilirubin, Total 0.4 mg/dL (Normal) Range: 0.1-1.2 Protein, Total, Serum 6.2 g/dL (Normal) Range: 6.0-8.5 :11 Lipid Panel With LDL/HDL Comments: PATIENT WAS FASTINGPERFORMED BY: [employer]6370 [facility] [id number] Ratio Cholesterol, Total 142 mg/dL (Normal) Range: 100-199 HDL Cholesterol 40 mg/dL (Normal) Comments: According to ATP-III Guidelines, HDL-C >59 mg/dL is considered anegative risk factor for CHD. LDL Cholesterol Calc 81 mg/dL (Normal) Range: 0-99 LDL/HDL Ratio 2.0 {ratio_units} (Normal) Range: 0.0-3.6 Triglycerides 103 mg/dL (Normal) Range: 0-149 VLDL Cholesterol Tyrese 21 mg/dL (Normal) Range: 5-40 58-Hmj-506349:30 CHEST, PA AND LATERAL (MT) Radiology Report See Note (Normal) Comments: Exam Number: [id number] PA AND LATERAL CHEST CLINICAL INDICATIONChronic cough. The heart size and contour are within normal limits. The pulmonaryvascularity is normal. No infiltrate or effusion is seen . There isno evidence of a mass or adenopathy. The bony thorax appearsunremarkable. IMPRESSIONNormal chest. Reported By: KIA COLEY M.D. 70-Edb-523925:27 METABOLIC PANEL, COMPREHENSIVE Comments: PATIENT WAS FASTINGPERFORMED BY: SkysheetMorristown Medical CenterBcdeds8112 [facility] [id number] (56092) A/G Ratio 1.7 (Normal) Range: 1.1-2.5 Albumin, [...] Sodium, Serum 145 mmol/L (Normal) Range: 135-145 72-Okk-217058:27 LIPID PANEL (28530) Comments: PATIENT WAS FASTINGPERFORMED BY: [facility] Ihfcik7153 [facility] [id number] Cholesterol, Total 164 mg/dL (Normal) Range: 100-199 [...] Cholesterol Tyrese 27 mg/dL (Normal) Range: 5-40 23-Maa-984313:27 CBC WITH MANUAL DIFF (44325) Comments: PATIENT WAS FASTINGClinical Information: ADD DRAW FEE [id number] ADD J 13889 PERFORMED BY: [facility] Ngyhzs5205 [facility] [id number] Baso (Absolute) 0.0 {x10E3/uL} (Normal) Range: 0.0-0.2 [...] (Normal) Range: 4.0-10.5 :37 HgA1C , Office (04447) Comments: done>Wf. HgA1C , Office 5.5 % (Normal) Range: 4.6 - 7.1 :37 Blood Glucose , Office (85131) Comments: done>Wf. Blood Glucose , Office 103 (Normal) :44 Renal Panel (10) Comments: PERFORMED BY: [facility] PharmaceuticalsCass [facility] Center [id number] Albumin, Serum 4.2 g/dL (Normal) Range: 3.5-5.5 [...] Sodium, Serum 144 mmol/L (Normal) Range: 135-145 :22 Renal function Panel (09819) Comments: PATIENT NOT FASTINGClinical Information: ADD DRAW FEE [id number] ADD J 47190 PERFORMED BY: LabEcinityECU [facility] [id number] Albumin, Serum 4.4 g/dL (Normal) Range: 3.5-5.5 [...] (Normal) Range: 135-145 :03 HgA1C , Office (10168) HgA1C , Office 5.6 % (Normal) Range: 4.6 - 7.1 :03 Blood Glucose , Office (70506) Blood Glucose , Office 96 (Normal) 8-Ael-282244:43 Hemoglobin Glyclated (HGB A1C) Comments: PATIENT WAS FASTINGPERFORMED BY: LabCoMorristown Medical CenterTthppl4569 [facility] [id number] (92732) Hemoglobin A1c 5.8 % (Normal) Comments: Diabetic Adult <7.0 Healthy Adult 4.8 - 5.9 (DCCT/NGSP) [place] Diabete s Association's Summary of Glycemic Recommendations for Adults with Diabetes: Hemoglobin A1c <7.0%. More stringent glycemic goals (A1c <6.0%) may furth er reduce complications at the cost of increased risk of hypoglycemia. :43 METABOLIC PANEL, COMPREHENSIVE Comments: PATIENT WAS FASTINGClinical Information: ADD DRAW FEE 328009 ADD J 52881 PERFORMED BY: DONA Oruggalin6370 [facility] [id number] (76696) A/G Ratio 1.6 (Normal) Range: 1.1-2.5 Albumin, [...] Serum 101 mg/dL (Abnormal) Range: 65-99 If -[place] >59 mL/min/1.73 Comments: Note: Persistent reduction for [...] Sodium, Serum 142 mmol/L (Normal) Range: 135-145 6-Ngp-574574:43 LIPID PANEL (14408) Comments: PATIENT WAS FASTINGPERFORMED BY: LabCoAlkermesTufxfb0401 [facility] [id number] Cholesterol, Total 170 mg/dL (Normal) Range: 100-199 [...] Cholesterol Tyrese 31 mg/dL (Normal) Range: 5-40 :07 CBCD,SMEAR DIFF CELLS COUNTED 100 (Normal) HCT [...] was performed using the TPSA method for theDiEarly[employer]si[employer] chemistry system.Values obtained with different assay methods cannot be usedinterchangably.When changing PSA assays in the course of monito ring apatient, additional sequential testing should be carriedout to confirm baseline values. :31 COMP METABOLIC A/G 1.3 {RATIO} (Normal) Range: [...] T PROT 6.6 g/dL (Normal) Range: 6.4-8.2 38-Jvz-812611:31 LIPID CHOL 149 mg/dL (Normal) Comments: <200 [...] 500 mg/dL VLDL 23 mg/dL (Normal) Range: 5-40 :58 LIPID CHOL 148 mg/dL (Normal) Comments: [...] 500 mg/dL VLDL 68 mg/dL (Abnormal) Range: 5-40 :58 LIVER ALB 3.3 g/dL (Abnormal) Range: [...] was performed using the TPSA method for theAr[employer] Systems chemistry system.Values obtained with different assay methods cannot be usedinterchangably.When changing PSA assays in the course of monito ring apatient, additionaly sequential testing should be carriedout to confirm baseline values. :18 Blood Glucose , Office (59877) Blood Glucose , Office 124 (Normal) :18 HgA1C , Office (44845) HgA1C , Office 5.3 % (Normal) Range: [...] Hypercholesterolemia Planned Observations Hemoglobin Glyclated (HGB A1C) (91488)Indication: Diabetes mellitus type II, controlled, with no complications On: 82-Fej-541315:35 Request CBC WITH MANUAL DIFF ([id number])Indication: Hypertension On: :34 Request Lipid Panel ([id number])Indication: Hypercholesterolemia On: :34 Request Metabolic Panel, Comprehensive ([id number])Indication: Hypertension On: 96-Dwy-695386:34 Request MICROALBUMIN: CREATININE RATIO ([id number]) AND ([id number])Indication: Hypertension On: :34 Request URINALYSIS ([id number])Indication: Hypertension On: 75-Mbr-729885:34 Request Metabolic Panel, Basic ([id number])Indication: Hypertension On: 94-Ilg-00279:02 Request Comments: re check in 2 weeks HGB A1C (30874)Indication: Impaired fasting glucose On: 91-Rem-755109:39 Request Comments: check prior to June apt Renal function Panel ([id number])Indication: Cardiomyopathy, unspecified type On: 4-Vhu-580061:52 Request CALCIFEDIOL ([id number])Indication: Hypertension On: 51-Shz-109230:21 Request TSH (THYROID STIMULATING HORMONE) ([id number])Indication: Hypertension On: 00-Pty-427874:21 Request LIPID PANEL ([id number])Indication: Hypertension On: 36-Blq-819616:20 Request METABOLIC PANEL, COMPREHENSIVE ([id number])Indication: Hypertension On: 60-Ira-912654:20 Request CBC, PLATELETS & AUT DIFF ([id number])Indication: Hypertension On: 24-Tss-320389:20 Request IRON ([id number])Indication: Abnormal blood finding On: :25 Request PSA (PROSTATE SPECIFIC ANTIGEN) (V76.44)Indication: Encounter for health maintenance examination with abnormal findings On: :48 Request Ferritin ([id number])Indication: Abnormal blood chemistry On: :48 Request TESTOSTERONE FREE ([id number])Indication: Testosterone deficiency On: :48 Request Uric Acid Blood (05665)Indication: Gout, renal disease On: :48 Request MICROALBUMIN: CREATININE RATIO ([id number]) AND (38393)Indication: Diabetes mellitus type II, controlled, with no complications On: :48 Request METABOLIC PANEL, COMPREHENSIVE ([id number])Indication: Diabetes mellitus type II, controlled, with no complications On: :48 Request LIPID PANEL ([id number])Indication: Diabetes mellitus type II, controlled, with no complications On: :48 Request CBC WITH MANUAL DIFF ([id number])Indication: Diabetes mellitus type II, controlled, with no complications On: 91-Ael-026098:48 Request LIPID PANEL ([id number])Indication: Hypercholesterolemia On: :23 Request Ferritin ([id number])Indication: Abnormal blood chemistry On: :38 Request TESTOSTERONE FREE ([id number])Indication: Testosterone deficiency On: :37 Request CALCIFIDIOL ([id number]) VIT D 25Indication: Vitamin D deficiency, unspecified On: :37 Request URINALYSIS, W/ MICRO ([id number])Indication: Hypertension On: :37 Request METABOLIC PANEL, COMPREHENSIVE ([id number])Indication: Hypertension On: :37 Request LIPID PANEL ([id number])Indication: Hypertension On: :37 Request CBC WITH MANUAL DIFF ([id number])Indication: Hypertension On: :37 Request Methylmalonic acid, serum 41707Annknhqity: Fatigue On: 07-Zza-45468:20 Request Renal function Panel ([id number])Indication: Hyperpotassemia On: 34-Fhr-327915:05 Request Metabolic Panel, Comprehensive ([id number])Indication: Hypercholesterolemia On: :26 Request Lipid Panel ([id number])Indication: Hypercholesterolemia On: :26 Request Comments: in six months (approximately) METABOLIC PANEL, COMPREHENSIVE ([id number])Indication: Hypertension On: :29 Request LIPID PANEL ([id number])Indication: Hypertension On: :29 Request CBC WITH MANUAL DIFF ([id number])Indication: Hypertension On: :29 Request Comments: in six months (approximately) Metabolic Panel, Comprehensive ([id number])Indication: Hypercholesterolemia On: :07 Request Lipid Panel ([id number])Indication: Hypercholesterolemia On: :07 Request Comments: in three months PSA (PROSTATE SPECIFIC ANTIGEN) (72230)Indication: Encounter for health maintenance examination with abnormal findings On: :09 Request HEPATIC FUNCTION PANEL ([id number])Indication: Hypercholesterolemia On: :09 Request LIPID PANEL ([id number])Indication: Hypercholesterolemia On: :09 Request Planned Encounters Medical; MARTIN 3 Month FU - On: 07-Nov-2018 9:00 [facility] Juma SILVA, Samina Hernandez MD Planned Procedures TDAP VACCINE >7 IM ([id number])By: On: 31-Mar-2018 Samina James MD, MD, Comments: lot: [id number]: 04/16/20ite/route: L del/IMamt: 0.5mLVIS signed when applicableOLU Howe Holter Monitor 24 hrsBy: Juma On: 09-Dec-2017 Samina Zheng MD, MD, Dana M Echo CompleteBy: Juma SILVA, On: 07-Nov-2017 Samina Townsend MD Echo CompleteBy: Juma SILVA, On: 28-Jan-2017 Intent Samina Hernandez MD Comments: March 28th at 1pm go to ground floor registration Echo CompleteBy: Juma SILVA, On: 28-Jan-2017 Intent Samina Hernandez MD IMMUNIZ ADMNIN, 1 VAC, On: 05-Aug-2015 Intent SNGL/COMBO ([id number])By: Samina Gomez MD, MD, Samina Edwards FLU VAC, SPLIT, >3 YEARS, On: 05-Aug-2015 Intent INTRAMUSC ([id number])By: Samina Gomez MD, MD, Dana M Nuclear Medicine - OtherBy: On: 05-Aug-2015 Intent Samina Gomez MD, MD, Comments: heptospleen scan Samina Edwards ESOPHOGRAM ([id number])By: Juma On: 08-Dec-2014 Intent Samina SILVA MD, Dana M Comments: 12mm IMMUNIZ ADMNIN, 1 VAC, On: 02-Sep-2014 Intent SNGL/COMBO ([id number])By: Samina Gomez MD, MD, Dana M FLU VAC, SPLIT, >3 YEARS, On: 02-Sep-2014 Intent INTRAMUSC ([id number])By: Samina Gomez MD, MD, Dana M Nuclear Stress Test/Stress On: 03-May-2014 Intent SPECT/TreadmillBy: Samina Gomez MD, MD, Dana M CT - Cardiac CTABy: Juma SILVA, On: 30-Apr-2014 Intent Samina Hernandez MD EKG ([id number])By: Samina Gomez MD On: 29-Apr-2014 Intent Samina Johnson MD Comments: see scanned document of test done to see results reviewed today with patient Nuclear Stress Test/Stress On: 29-Apr-2014 Intent SPECT/AdenosineBy: Samina Gomez MD, MD, Dana M Aerosol Treatment ([id number])By: On: 15-Jan-2014 Intent Samina Gomez MD, MD, Dana M Eprescribed prescriptions On: 15-Jan-2014 Intent ([id number])By: Samina Gomez MD, MD, Dana M FLU VAC, SPLIT, >3 YEARS, On: 06-Nov-2013 Intent INTRAMUSC ([id number])By: Ousmane, Comments: Lot:[id number]:Dose:0.5mLRoute:IMSite:L DltdGiven By:RADHA signed Estephanie IMMUNIZ ADMNIN, 1 VAC, On: 06-Nov-2013 Intent SNGL/COMBO ([id number])By: Estephanie Romeo Eprescribed prescriptions On: 16-Jul-2013 Intent ([id number])By: Savanna Ramírez LPN Aerosol Treatment ([id number])By: On: 08-Jan-2013 Intent Juma SILVA, Samina Gomez MD, Samina Edwards Eprescribed prescriptions On: 08-Jan-2013 Intent ([id number])By: Savanna Ramírez LPN IMMUNIZ ADMNIN, 1 VAC, On: 21-Aug-2012 Intent SNGL/COMBO ([id number])By: Darrell ALMANZA, Comments: Lot #[id number]-L dltd, IMDose prefilled syringegiven by carlita NEGRETE signed Savanna Watson FLU VAC, SPLIT, >3 YEARS, On: 21-Aug-2012 Intent INTRAMUSC ([id number])By: Savanna Ramírez LPN IMMUNIZATION ADMIN ([id number])By: On: 06-Sep-2011 Intent Juma SILVA, Samina Hernandez MD FLU VACCINE H1N1 ([id number])By: On: 06-Sep-2011 Intent Juma SILVA, Samina Hernandez MD FLU VAC, SPLIT, >3 YEARS, On: 06-Nov-2010 Intent INTRAMUSC ([id number])By: Juma SILVA, Comments: Lot #[id number]-L arm, IMDose0.5mlgiven by: Samina Hernandez MD IMMUNIZ ADMNIN, 1 VAC, On: 06-Nov-2010 Intent SNGL/COMBO ([id number])By: Samina Gomez MD, MD, Samina Edwards EKG ([id number])By: Samina Gomez MD On: 06-Nov-2010 Intent Samina Johnson MD Spirometry ([id number])By: Juma On: 04-Nov-2009 Intent Samina SILVA MD, Dana M Pulse Oximetry ([id number])By: On: 04-Nov-2009 Intent MIKKI De La Cruz IMMUNIZ ADMNIN, 1 VAC, On: 08-Sep-2009 Intent SNGL/COMBO ([id number])By: Lisy Otero RN FLU VAC, SPLIT, >3 YEARS, On: 08-Sep-2009 Intent INTRAMUSC ([id number])By: Shanna RN, Comments: Lot #: [id number] date: mount given: 0.5 mlRoute: IMSite given: left deltoidGiven by: ARCHIE Mcmillan Radiology - ChestBy: Juma SILVA, On: 07-Jul-2009 Intent Samina Hernandez MD Pulse Oximetry ([id number])By: On: 07-Jul-2009 Intent MIKKI De La Cruz Spirometry ([id number])By: Garrett On: 31-Mar-2009 Intent Mamie BUI Comments: done BC Inhaler Demonstration On: 31-Mar-2009 Intent ([id number])By: Mamie Tucker CNP Comments: done BCdemonstrates understanding, inhaler demo handout given to supplement instructions Pulse Oximetry ([id number])By: Garrett On: 31-Mar-2009 Intent Mamie BUI Comments: done BC Aerosol Treatment ([id number])By: On: 31-Mar-2009 Mamie Crouch CNP Comments: done BC EKG ([id number])By: Samina Gomez MD On: 29-Oct-2008 Intent Samina Johnson MD EKG ([id number])By: Samina Gomez MD On: 09-Oct-2006 Intent Samina [...] prophylactic vaccination and inoculation against influenza Encounters Phone Encounter On: 16-Oct-2018 14:03 Encounter Diagnosis: Back pain, acute End: 16-Oct-2018 14:06 [facility] Lab Order On: 14-Oct-2018 12:30 Encounter Diagnosis: [...] colonoscopy (never has had one) and PSA (5--18).Encounter Diagnosis: Tobacco use, Chronic GERD, Bipolar 1 [...] for Tdap vaccination (Renamed from Need for zbozsrsmms-ofdfzhl-kdnttjhee (Tdap) vaccine, adult/a dolescent) [facility] [...] Nutrition: balanced diet and supplemental vitamins. The ca dical issues the patient is following up [...] Nutrition: balanced diet and supplemental vitamins. The ca dical issues the patient is following up [...] Nutrition: balanced diet and supplemental vitamins. The ca dical issues the patient is following up [...] Internal Medicine End: 22-Aug-2006 11:50 [facility] [place]; a guarantor
--- OUTSIDE RECORDS SUMMARY | 2019-02-06 03:56 | XMS RPT_ITS ---
:1960 Author Organization OHIP Support Name Relationship Address Phone R Unknown Unavailable Unavailable RICHIE BAILEY [address] [place] + [place] [address] [facility] RESIDENCES Unknown [address] + [place] [address] RICHIE BAILEY [address] + [place] [address] [facility] RESIDENCES Unknown [address] + [place] [address] RICHIE BAILEY [address] + [facility] [place] [address] [facility] RESIDENCES Unknown [address] + [place] [address] RICHIE BAILEY [address] + [place] [address] [facility] RESIDENCES Unknown [address] + [place] [address] RICHIE [place]AILEY [address] + [facility] [address] [facility] RESIDENCES Unknown [address] + [place] [address] RICHIE BAILEY [address] + [facility] [address] [facility] RESIDENCES Unknown [address] + [place] [address] RICHIE BAILEY [address] + [facility] [address] [facility] RESIDENCES Unknown [address] + [place] [address] RICHIE BAILEY [address] + [place] [address] [facility] RESIDENCES Unknown [address] + [place] [address] RICHIE [place]AILEY [address] + [facility] [address] [facility] RESIDENCES Unknown [address] + [place] [address] RICHIE BAILEY [address] + [place] [address] [facility] RESIDENCES Unknown [address] + [place] [address] RICHIE BAILEY [address] + [place] [address] [facility] RESIDENCES Unknown [address] + [place] [address] RICHIE BAILEY [address] + [place] [address] [facility] RESIDENCES Unknown [address] + [place] [address] RICHIE BAILEY [address] + [place] [address] [facility] RESIDENCES Unknown [address] + [place] [address] RICHIE BAILEY [address] + [place] [address] [facility] RESIDENCES Unknown [address] + [place] [address] RICHIE BAILEY [address] + [place] [address] Care Team Providers Name Role Phone Charlene Dennison MD Attending Unavailable Charlene Dennison MD Referring Unavailable Charlnee Dennison MD Consulting Unavailable Bonezzi, Charlene Primary Care Unavailable Sergio Cardona Attending Unavailable Bonezzi, Charlene Referring Unavailable Bonezzi, Charlene Primary Care Unavailable Bonecarminai Charlene Attending Unavailable Ken Ortiz Attending Unavailable Bonezzi, Charlene Referring Unavailable Bonezzi, Charlene Primary Care Unavailable Abhijit Lea Attending Unavailable Dari Castañeda Attending Unavailable Dari Castañeda Attending Unavailable Stiven Goldman Attending Unavailable Bonezzi, Charlene Referring Unavailable Mago Higgins Attending Unavailable Aleshia Schaeffer Attending Unavailable Omer Ospina Attending Unavailable Bonezzi, Charlene Referring Unavailable Mago Higgins Attending Unavailable Aleshia Schaeffer Attending Unavailable Nirav Balbuena Attending Unavailable Omer Ospina Attending Unavailable Bonezzi, Charlene Referring Unavailable Bonezzi, Charlene Primary Care Unavailable Bonezzi, Charlene Primary Care Unavailable Jovani Green Attending Unavailable Purpose Purpose PROBLEMS PROBLEMS DATE TYPE CONDITION / CODE ATTENDING STATUS SOURCE 01/29/2018 Unknown R00.2 - Ken Ortiz Active Kim Palpitations / Community R00.2(ICD-10) Hospital Repository PROCEDURES PROCEDURES No Procedure Records FoundVITAL SIGNS VITAL SIGNS No Vital Signs Records FoundRESULTS RESULTS 12 LEAD ELECTROCARDIOGRAM Observed: 11/07/2018 Status: F Source: KIM 2:04 PM [facility] Cardiovascular Services [address] [place] [address] 12 Lead EKG 11/04/18 1456 MR#: [id number] Acct: [id number] Name: VISHAL BAILEY Rep #: [id number] : 1960 57 From: Ken Ortiz MD Attending Dr: Status: DEP ER Ordering Dr: Tripp Vogel MD Date: 11/04/18 Location: ED Sex: M C Admitted: Test Reason : PALPS Blood Pressure : / mmHG Vent. Rate : 146 BPM Atrial Rate : 144 BPM P-R Int : 000 ms QRS Dur : 140 ms QT Int : 334 ms P-R-T Axes : 000 057 -50 degrees QTc Int : 520 ms Atrial fibrillation with rapid ventricular response with premature ventricular or aberrantly conducted complexes Non-specific intra-ventricular conduction block Abnormal QRS-T angle, consider primary T wave abnormality Abnormal ECG Confirmed by MUNA SILVA, KEN ([id number]), medical transcription editor MATTI DOBSON ([id number]) on 11/07/2018 2:03:36 PM Referred By: Confirmed By:KEN ORTIZ MD 11/07/18 1403 Date Ken Ortiz MD CC: Charlene Dennison MD; Sergio Cardona MD; Tripp Vogel MD Signed 12 LEAD ELECTROCARDIOGRAM Observed: 11/07/2018 Status: F Source: KIM 1:44 PM [facility] Cardiovascular Services [address] [place] [address] 12 Lead EKG 11/04/18 1734 MR#: [id number] Acct: [id number] Name: VISHAL BAILEY Rep #: [id number] : 1960 57 From: Ken Ortiz MD Attending Dr: Status: DEP ER Ordering Dr: Sergio Cardona MD Date: 11/04/18 Location: ED Sex: M C Admitted: Test Reason : RYTHM CHANGE Blood Pressure : / mmHG Vent. Rate : 085 BPM Atrial Rate : 085 BPM P-R Int : 160 ms QRS Dur : 104 ms QT Int : 376 ms P-R-T Axes : 039 011 026 degrees QTc Int : 447 ms Normal sinus rhythm Normal ECG Confirmed by KEN ORTIZ MD ([id number]), medical transcription editor MATTI DOBSON ([id number]) on 11/07/2018 1:43:59 PM Referred By: IDA Confirmed By:KEN ORTIZ MD 11/07/18 1344 Date Ken Ortiz MD CC: Charlene Dennison MD; Sergio Cardona MD Signed EMERGENCY DEPARTMENT Observed: 11/04/2018 Status: F Source: [place] SUMMARY 10:39 PM [facility] Medical Records Department [address] [place] [address] Emergency Department Summary 11/04/18 1503 MR#: [id number] Acct: [id number] Name: VISHAL BAILEY Rep #: [id number] : 1960 57 From: Sergio Cardona MD PCP: Charlene Dennison MD Status: DEP ER - ER Visit Summary Date of Service: 11/04/18 Chief Complaint: Heart racing History of Present Illness: The patient is a 57 M presents to the emergency department palpitations. Patient has history of atrial flutter. He is anticoagulated on Xarelto. He states that this morning, he felt like his heart was racing. He states he was having symptomatic palpitations. He does describe being mildly short of breath and lightheaded. He states that he does get this from time to time. He states normally, he can wait it out and it will go away. He states today, just would not go away. He has been compliant with his medications. He denies any chest pain, but does admit to some dyspnea. He does follow with Dr. Goldman. He denies any fevers or chills. He denies any other systemic complaints. Physical Examination: Vital signs reviewed General: Well-nourished, well-developed Head: Normocephalic, atraumatic Eyes: Pupils equal and reactive, extraocular muscles intact Neck, supple, no lymphadenopathy Heart: Irregular rate and rhythm, tachycardic Respiratory: No distress, clear bilaterally Abdomen: Soft, nontender, nondistended, no peritoneal signs Back: Nontender Extremities: Nontender, no edema, no cords Skin: Normal color no rash Neuro: Alert and oriented, no focal or lateralizing deficits Test Results: [] Emergency Department Course and Treatment: EKG was on patient arrival. It does demonstrate atrial flutter with rapid ventricular response. The patient was locked basically at a rate of 150. IV was established. He was given fluids. I did obtain screening labs. His cardiac enzymes were normal. He has had this symptoms for 8 hours now. He has no documented history of coronary vascular disease. The patient was hypomagnesemic. I did give the patient 20 mg of diltiazem, but he had no change in his rate. I discussed the patient with Dr. Ortiz. The patient has been cardioverted before and has been resistant to rate control medication. I did discuss options with the patient. He was consented for conscious sedation and cardioversion. He was given etomidate. The patient was cardioverted at 200 J. He is repeat EKG does demonstrate sinus rhythm. His magnesium was replaced. The patient is resting comfortably. At this time, given his unremarkable workup, replacement of electrolytes, and the fact he is maintaining sinus rhythm I do feel that he is safe for discharge. Patient is comfortable with this plan of care. Treatment Plan: [] Disposition: Discharge Impression: 1. Atrial flutter with rapid ventricular response 2. Cardioversion 3. Conscious sedation This note was generated with [employer] software. It may contain incorrect words, spelling, and punctuation that were not noted in review of the chart prior to signing ED Disposition - Plan for ED Patient: Chief Complaint: Palpitations Instructions: ED Paroxysmal Atrial Flutter Referrals: Stiven Goldman MD [STAFF PHYSICIAN] - What to do if you have Problems For any increased pain, shortness of breath, bleeding, nausea or vomiting, chest pain, or any unexpected problems, contact your Primary Care Provider. Call [facility] ([phone]) or report to the closest Emergency Room. Call 911 if necessary. 11/04/18 1375 <Electronically signed by Sergio Cardona MD> Date Sergio Cardona MD Cosigner Signature (If Indicated): Date CC: Charlene Dennison MD CBC W/DIFF, AUTOMATED Collected: 11/04/2018 Status: F Source: [place] 3:12 PM [facility] TYPE CODE TESTS RESULT OUT OF RANGE REFERENCE UNITS LAB L100.1000 4.4-11.0 K/mm3 Normal WBC 10.6 LAB L100.1200 4.6-6.2 M/mm3 Normal RBC 5.04 LAB L100.1300 13.0-16.5 g/dl Normal HGB 14.5 LAB L100.1400 40-54 % Normal HCT 44.0 LAB L100.1500 80-94 fL Normal MCV 87.3 LAB L100.1600 27.0-32.0 pg Normal MCH 28.8 LAB L100.1700 32-36 g/gl Normal MCHC 33.0 LAB L100.1810 11.6-14.6 % Normal RDW CV 13.5 LAB L100.1820 35.1-43.9 fl Normal RDW SD 42.9 LAB L100.1900 150-450 K/mm3 Normal PLT 254 LAB L100.2000 6.2-12.0 fl Normal MPV 8.7 LAB L100.2100 47-70 % High NEUT% 78.7 LAB L100.2200 19-41 % Low LY% 13.2 LAB L100.2300 0-10 % Normal MONO% 6.3 LAB L100.2400 0-5 % Normal EO% 1.1 LAB L100.2500 0-1 % Normal BASO% 0.3 LAB L100.2550 0.0-0.9 % Normal IM GRAN % 0.400 Result Comment: IG% - Immature Granulocytes (promyelocytes, myelocytes and metamyelocytes) > 1% indicates that a LEFT SHIFT is Present. LAB L100.2620 2.0-7.7 X10 3/uL High Absolute Neut 8.4 LAB L100.2720 0.83-4.51 X10 3/ul Normal Absolute Lymph 1.40 Performed By: #### L100.0100 #### [facility] [address] [place], [place], [address] BASIC METABOLIC Collected: 11/04/2018 Status: F Source: [place] PROFILE (BMP) 3:12 PM [facility] TYPE CODE TESTS RESULT OUT OF RANGE REFERENCE UNITS LAB L501.0100 74-106 mg/dL High GLU 156 Result Comment: Fasting Glucose result greater than or equal to 126 mg/dL suggests DIABETES MELLITUS per A.D.A. criteria. Please note revised GLUCOSE reference range effective 2017. LAB L501.1000 7-18 mg/dL High BUN 20 LAB L501.1100 0.70-1.30 mg/dL Normal CREAT,SERUM 1.04 Result Comment: The validity of the calculated GFR AND GFRAA in patients over 70 years has not been determined. Clinical correlation is essential. LAB L501.1110 >60 mL/min Normal EST GFR 79 Result Comment: Non- GFR Calc LAB L501.1115 >60 mL/min Normal EST GFR - AA 95 Result Comment: GFR Calc LAB L501.1255 ml/min Normal Estimated CRCL 90.70 LAB L501.1300 10-20 RATIO Normal BUN/CRE 19.2 LAB L501.2200 8.5-10 mg/dL Normal .1 CA 9.1 LAB L501.5300 136-14 mmol/L Normal 5 NA 140 LAB L501.5600 3.5-5. mmol/L Normal 1 K 4.0 LAB L501.5900 98-107 mmol/L Normal CL 103 LAB L501.6100 21.0-3 mmol/L Normal 2.0 CO2 27.0 LAB L501.6200 5-15 Normal GAP 10 Performed By: #### L500.2500, L501.4010, L501.5200 #### [facility] [address] [place], [address] TROPONIN-I Collected: 11/04/2018 Status: F Source: KIM 3:12 PM [facility] TYPE CODE TESTS RESULT OUT OF RANGE REFERENCE UNITS LAB L501.4010 <0.045 ng/mL Normal < 0.015 TROPONIN-I Result Comment: TROPONIN-I EXPECTED VALUES <0.045 Negative 0.045 - 0.590 Consistent with Cardiac Damage > OR = 0.600 Critical Value Not every elevated troponin is indicative of MA. These values should be used with clinical judgement in examining the patient's clinical picture for diagnosis. To establish a diagnosis of MA versus myocardial injury, there must be a demonstrated rise and/or fall in the troponin values, in addition to ischemic symptoms, EKG changes, new regional wall motion abnormality, and/or angiographical evidence. PLEASE NOTE: REFERENCE RANGES EDITED 18 Performed By: #### L500.2500, L501.4010, L501.5200 #### [facility] [address] [place], [address] MAGNESIUM Collected: 11/04/2018 Status: F Source: KIM 3:12 PM [facility] TYPE CODE TESTS RESULT OUT OF RANGE REFERENCE UNITS LAB L501.5200 1.6-2.6 mg/dL Low MG 1.4 Performed By: #### L500.2500, L501.4010, L501.5200 #### [facility] [address] [place], [address] BNP,B-TYPE NATRIURETIC Collected: 11/04/2018 Status: F Source: [place] PEPTIDE 3:12 PM [facility] TYPE CODE TESTS RESULT OUT OF RANGE REFERENCE UNITS LAB L503.6620 0-100 pg/mL Normal B-TYPE 66.2 LEON PEP Performed By: #### L503.6620 #### [facility] [address] [place], [address] CHEST 1 VIEW Observed: 11/04/2018 Status: F Source: KIM (PORTABLE) 3:04 PM [facility] REPOSITORY [facility] Imaging Services [address] [place] [address] Chest 1 View (Portable) MR#: [id number] Acct: [id number] Name: VISHAL BAILEY Rep #: [id number] : 1960 M 57 From: Hood Thornton MD PCP: Charlene Dennison MD Status: REG ER Study: Chest 1 View (Portable) Date of Exam: 11/04/18 Exam# [id number] Ordering Dr: Sergio Cardona MD STUDY: X-RAY CHEST REASON FOR EXAM: Male, 57 years old. Chest pain. TECHNIQUE: Single AP portable view of the chest. COMPARISON: Comparison is made with prior study dated August 20, 2018. FINDINGS: EKG electrodes are seen. The lungs are clear and expanded. Scattered calcified granulomas. There is no demonstrated pleural abnormality. Normal size heart. Normal mediastinum and nicol. Normal visualized pulmonary arteries. Normal visualized aortic arch and descending thoracic aorta. Normal visualized thoracic spine. Normal visualized ribs, clavicles, and shoulders. There is no demonstrated abnormality of the visualized soft tissue structures of the upper abdomen. RAD/Chest 1 View (Portable) IMPRESSION: Normal x-ray examination of the chest. Electronically Signed: Hood Thornton MD at 15:39 EST Tel [phone], Service support , CC: Charlene Dennison MD; Sergio Cardona MD Client Consultant: Signed 12 LEAD ELECTROCARDIOGRAM Observed: 08/25/2018 Status: F Source: KIM 3:13 PM [facility] REPOSITORY [facility] Cardiovascular Services [address] [place] [address] 12 Lead EKG 08/20/18 1825 MR#: [id number] Acct: [id number] Name: VISHAL BAILEY Rep #: [id number] : 1960 57 From: Ken Ortiz MD Attending Dr: Status: DEP ER Ordering Dr: Jovani Green MD Date: 08/20/18 Location: ED Sex: M C Admitted: Test Reason : PALPITATIONS Blood Pressure : / mmHG Vent. Rate : 102 BPM Atrial Rate : 102 BPM P-R Int : 184 ms QRS Dur : 112 ms QT Int : 346 ms P-R-T Axes : 025 -02 065 degrees QTc Int : 450 ms Sinus tachycardia Possible Anterior infarct , age undetermined Abnormal ECG Confirmed by KEN ORTIZ MD ([id number]), medical transcription editor MATTI DOBSON ([id number]) on 08/25/2018 3:13:27 PM Referred By: ACOSTA/KAVON Confirmed By:KEN ORTIZ MD 08/25/18 1513 Date Ken Ortiz MD CC: Charlene Dennison MD; Jovani Green MD Signed DISCHARGE INSTRUCTION Observed: 08/21/2018 Status: F Source: [place] 12:30 AM [facility] Medical Records Department [address] [place] [address] Discharge Instruction 08/20/181927 MR#: [id number] Acct: [id number] Name: VISHAL BAILEY Rep #: [id number] : 1960 57 From: Jovani Green MD PCP: Charlene Dennison MD Status: DEP ER ED Disposition - Plan for ED Patient: Disposition: Home or Assisted Living Chief Complaint: Palpitations Instructions: ED Palpitations Referrals: Charlene Dennison MD [Primary Care Provider] - As Needed Stiven Goldman MD [STAFF PHYSICIAN] - As Needed Additional Instructions: Follow-up with Dr. Goldman as needed. Get back on your exercise and diet plan that you had done before. Decrease alcohol use. Continue current medications. What to do if you have Problems For any increased pain, shortness of breath, bleeding, nausea or vomiting, chest pain, or any unexpected problems, contact your Primary Care Provider. Call [facility] ([phone]) or report to the closest Emergency Room. Call 911 if necessary. 08/21/18 0030 <Electronically signed by Jovani Green MD> Date Jovani Green MD Cosigner Signature (If Indicated): Date CC: Charlene Dennison MD EMERGENCY DEPARTMENT Observed: 08/21/2018 Status: F Source: [place] SUMMARY 12:30 AM [facility] Medical Records Department [address] [place] [address] Emergency Department Summary 08/20/18 1858 MR#: [id number] Acct: [id number] Name: VISHAL BAILEY Rep #: [id number] : 1960 57 From: Jovani Green MD PCP: Charlene Dennison MD Status: DEP ER - ER Visit Summary Date of Service: 08/20/18 Chief Complaint: Patient with accelerated heart rate and palpitations History of Present Illness: The patient is a 57 M with past medical history of diabetes, hypertension, high cholesterol and atrial flutter. Patient states he was at home drank about 9-10 beers was eating pizza and [...] Neck nontender. No lymphadenopathy. Lungs clear to auscultation bilaterally. Heart regular rhythm rate about 105 no murmur. Chest wall nontender. Abdomen peritoneal signs. He is moving all 4 extremities. Calves are nontender without edema nor cords. Neurologically is awake alert with no focal motor deficits. Test Results: EKG shows a sinus tachycardia rate of 102 but currently he is not in atrial fib or flutter. CBC normal. White count of 9. Hemoglobin 14. Electrolytes unremarkable. Normal creatinine and gap. Troponin normal. Chest x-ray normal cardiac silhouette and mediastinum. No acute abnormality. Read both by myself and the radiologist. Emergency Department Course and Treatment: Patient's been doing well the entire time in the ER. On his initial presentation he was tachycardic he may have been in intermittent A. fib or flutter but that is since totally resolved. He has not been admitted again since that time. Treatment Plan: Continue on his current medications. Decrease his alcohol consumption. Get back on his exercise and diet plan. Disposition: Discharge Impression: Acute transient palpitations resolved History of atrial flutter History of diabetes, hypertension and high cholesterol This note was generated with [employer] dictation software. It may contain incorrect words, spelling, and punctuation that were not noted in review of the chart prior to signing ED Disposition - Plan for ED Patient: Chief Complaint: Palpitations Referrals: Charlene Dennison MD [Primary Care Provider] - What to do if you have Problems For any increased pain, shortness of breath, bleeding, nausea or vomiting, chest pain, or any unexpected problems, contact your Primary Care Provider. Call [facility] ([phone]) or report to the closest Emergency Room. Call 911 if necessary. 08/21/18 0030 <Electronically signed by Jovani Green MD> Date Jovani Green MD Cosigner Signature (If Indicated): Date CC: Charlene Dennison MD CHEST 1 VIEW Observed: 08/20/2018 Status: F Source: KIM (PORTABLE) 6:49 PM [facility] [place] Imaging Services [address] [place] [address] Chest 1 View (Portable) MR#: [id number] Acct: [id number] Name: VISHAL BAILEY Rep #: [id number] : 1960 M 57 From: Iris Dobson MD PCP: Charlene Dennison MD Status: PRE ER Study: Chest 1 View (Portable) Date of Exam: 08/20/18 Exam# [id number] Ordering Dr: Jovani Green MD STUDY: X-RAY [...] (Portable) IMPRESSION: No radiographic evidence of acute cardiopulmonary disease. Electronically Signed: Iris Dobson MD at 19:20 EDT , Service support , CC: Charlene Dennison MD; Jovani Green MD Client Consultant: Signed CBC W/DIFF, AUTOMATED Collected: 08/20/2018 Status: F Source: [place] 6:31 PM [facility] [place] TYPE CODE TESTS RESULT OUT OF RANGE REFERENCE UNITS LAB L100.1000 4.4-11.0 K/mm3 Normal WBC 9.7 LAB L100.1200 4.6-6.2 M/mm3 Normal RBC 5.10 LAB L100.1300 13.0-16.5 g/dl Normal HGB 14.8 LAB L100.1400 40-54 % Normal HCT 44.8 LAB L100.1500 80-94 fL Normal MCV 87.8 LAB L100.1600 27.0-32.0 pg Normal MCH 29.0 LAB L100.1700 32-36 g/gl Normal MCHC 33.0 LAB L100.1810 11.6-14.6 % Normal RDW CV 13.1 LAB L100.1820 35.1-43.9 fl Normal RDW SD 42.3 LAB L100.1900 150-450 K/mm3 Normal PLT 247 LAB L100.2000 6.2-12.0 fl Normal MPV 8.9 LAB L100.2100 47-70 % Normal NEUT% 60.9 LAB L100.2200 19-41 % Normal LY% 27.5 LAB L100.2300 0-10 % Normal MONO% 6.4 LAB L100.2400 0-5 % Normal EO% 4.2 LAB L100.2500 0-1 % Normal BASO% 0.6 LAB L100.2550 0.0-0.9 % Normal IM GRAN % 0.400 Result Comment: IG% - Immature Granulocytes (promyelocytes, myelocytes and metamyelocytes) > 1% indicates that a LEFT SHIFT is Present. LAB L100.2620 2.0-7.7 X10 3/uL Normal Absolute Neut 5.9 LAB L100.2720 0.83-4.51 X10 3/ul Normal Absolute Lymph 2.67 Performed By: #### L100.0100 #### [facility] [address] [place], [place], [address] BASIC METABOLIC Collected: 08/20/2018 Status: F Source: [place] PROFILE ([facility]) 6:31 PM [facility] [place] TYPE CODE TESTS RESULT OUT OF RANGE REFERENCE UNITS LAB L501.0100 74-106 mg/dL High GLU 134 Result Comment: Fasting Glucose result greater than or equal to 126 mg/dL suggests DIABETES MELLITUS per A.D.A. criteria. Please note revised GLUCOSE reference range effective 2017. LAB L501.1000 7-18 mg/dL Normal BUN 13 LAB L501.1100 0.70-1.30 mg/dL Normal CREAT,SERUM 0.71 Result Comment: The validity of the calculated GFR AND GFRAA in patients over 70 years has not been determined. Clinical correlation is essential. LAB L501.1110 >60 mL/min Normal EST GFR 123 Result Comment: Non- GFR Calc LAB L501.1115 >60 mL/min Normal EST GFR - AA 149 Result Comment: GFR Calc LAB L501.1255 ml/min Normal Estimated CRCL 132.85 LAB L501.1300 10-20 RATIO BUN/CRE Normal 18.4 LAB L501.2200 8.5-10 mg/dL .1 CA Normal 9.2 LAB L501.5300 136-14 mmol/L 5 NA Normal 139 LAB L501.5600 3.5-5. mmol/L 1 K Normal 3.5 LAB L501.5900 98-107 mmol/L CL Normal 102 LAB L501.6100 21.0-3 mmol/L 2.0 CO2 Normal 27.0 LAB L501.6200 5-15 GAP Normal 10 Performed By: #### L500.2500, L501.4010 #### [facility] [address] [place], [place], [address] TROPONIN-I Collected: 08/20/2018 Status: F Source: [place] 6:31 PM [facility] TYPE CODE TESTS RESULT OUT OF RANGE REFERENCE UNITS LAB L501.4010 <0.045 ng/mL Normal < 0.015 TROPONIN-I Result Comment: TROPONIN-I EXPECTED VALUES <0.045 Negative 0.045 - 0.590 Consistent with Cardiac Damage > OR = 0.600 Critical Value Not every elevated troponin is indicative of MA. These values should be used with clinical judgement in examining the patient's clinical picture for diagnosis. To establish a diagnosis of MA versus myocardial injury, there must be a demonstrated rise and/or fall in the troponin values, in addition to ischemic symptoms, EKG changes, new regional wall motion abnormality, and/or angiographical evidence. PLEASE NOTE: REFERENCE RANGES EDITED 18 Performed By: #### L500.2500, L501.4010 #### [facility] [address] [place], [place], [address] CARDIOLOGY VISIT Observed: 04/09/2018 Status: F Source: KIM REPORT 1:38 PM [facility] [address] [place] [address] OFFICE VISIT Date of Service: 04/09/18 MR#: [id number] Acct: [id number] Name: VISHAL BAILEY Rep #: [id number] : 1960 Provider: MARCK Ospina Age/Sex: 57/M Location: [facility] Status: Signed HPI HPI Details: VISHAL BAILEY, is a 57 M who presents to the office today for a cardiovascular outpatient follow-up. He has a history of atrial flutter with cardioversion in 2013, cardiomyopathy, hypertension, hyperlipidemia, diabetes mellitus, and obesity. Patient presented to [facility] emergency department in January 2018 after noting palpitations and heart racing. This was associated with mild shortness of breath. His EKG showed atrial flutter at a rate of 142 bpm with left bundle branch block pattern. His troponin was negative. Patient was prepared for a cardioversion, but converted to sinus rhythm before this could be completed. He maintained sinus rhythm and was discharged home. Pt. denies chest, arm, jaw, or neck discomfort. His exercise tolerance is stable though very minimal. Pt. denies symptoms of CHF, lightheadedness, dizziness, near syncope, or syncopal episodes. Pt. denies edema or claudication issues. Pt. denies orthopnea, PND, fever, chills, blood in urine, blood in stool, myalgia, or unexplainable fatigue. He continues to work on losing weight. He states recovering from a respiratory cold and still has residual SOB. Because of this, he states feeling less energy. 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 [Ecotrin] 325 mg PO DAILY@00 12/07/17 [History Confirmed 02/27/18] alprazolam 0.5 mg tablet 0.5 mg PO .COMPLEX 02/19/18 [History Confirmed 02/27/18] ergocalciferol (vitamin D2) 50,000 unit capsule 50,000 unit PO QMONTH cap 02/19/18 [History Confirmed 02/27/18] carvedilol 3.125 mg tablet 3.125 mg PO BID tab 02/27/18 [History Confirmed 02/27/18] rivaroxaban 20 mg tablet 20 mg PO QDAY #30 tab 04/09/18 [Rx Confirmed 04/09/18] Ejection fraction %: 50 to 54 (50% per echo 11/27/2017 at [facility]) [facility] Medical History Paroxysmal atrial flutter (Chronic) Systolic dysfunction (Chronic) Cardiomyopathy (Chronic) Hyperlipidemia (Chronic) Palpitations (Acute) Diabetes mellitus type 2 in obese (Chronic) Anxiety disorder (Chronic) Obesity (Chronic) Hypertension (Chronic) Surgical History History of cardioversion (Resolved) Family History Mother Cardiomyopathy Cancer thyroid cancer CHF (congestive heart failure) Father CAD (coronary artery disease) Sister COPD (chronic obstructive pulmonary disease) Breast cancer Social History Smoking Status: Former smoker alcohol intake: current alcohol intake frequency: 3 or more drinks per day Alcohol type: beer details: occasional substance use type: does not use ROS Const Const: Positive for fatigue (d/t recent illness); negative for weakness, body ache, fever(s) or chills ENT ENT: Negative for dizziness Cardio Chest [...] or rash Neuro Neuro: Negative for weakness, dizziness, lightheadedness, near syncope, syncope or orthostatic symptoms Endo Endo: Positive for fatigue (d/t recent illness) Allergy Allergy/Immunology: Negative for rash Cardiology Exam Const Appearance: cooperative, healthy appearing, comfortable and no acute distress Nutritional Appearance: obese Orientation: alert, awake and oriented x3 Head Head: normal to inspection Ears: hearing grossly normal bilaterally Nose: external nose normal Face and Sinus: face symmetric Mouth: oral mucosae normal Eyes General: appearance normal, both eyes and all related structures Eyelids: eyelids normal Neck Neck: no JVD and normal visual inspection Carotids: normal carotid upstroke Chest Chest inspection: normal inspection of the chest and normal respiratory effort; negative cough Auscultation: Bilateral: Clear to Auscultation Cardio Rate: regular rate Rhythm: regular rhythm Heart sounds: S1 normal and S2 normal; negative rub or gallop GI GI: normal to inspection and obese Neuro General: alert, awake, oriented x3 and CN's II-XI intact bilaterally Skin Skin: no rashes or lesions noted and purpura (abdomen and right arm after injury) Extremities Pulses: Normal: Right Posterior Tibial Pulse, Left Posterior Tibial Pulse, Right Radial Pulse, Left Radial Pulse Lower Extremity Edema: None: Bilateral Psych Psychological: normal affect Supplemental Info Echocardiogram from November 2017 showed estimated ejection fraction of 50%, mild mitral annular calcification, trivial mitral valve insufficiency, trivial tricuspid valve insufficiency, mild focal aortic valve thickening, RVSP of 27 mmHg, and diastolic dysfunction. Echocardiogram from January 2017 showed an estimate ejection fraction 40%, mild concentric LVH, mild global left ventricular systolic dysfunction, mildly enlarged left atrium, mildly enlarged right atrium, stress test from April 2014 and mild tricuspid valve insufficiency. Stress test from April 2014 showed EKG with no ST or T-wave changes to suggest abnormal flow reserve, nuclear images with no obvious ischemia noted, and ejection fraction reported at 43%. Assessment AND Plan 1. Paroxysmal atrial flutter I48.92 S/P DCCV 05/15/2014 Plan Patient did have one episode of atrial fibrillation in January 2018 in which he sought attention at the emergency department. He eventually converted to sinus rhythm. He did not require cardioversion. He appears to be maintaining regular rhythm today in office. His heart rate remains well controlled. He will continue current medications which include carvedilol and Xarelto. His most recent kidney function with primary care physician showed a creatinine of 0.65. 2. Cardiomyopathy, unspecified type I42.9 Plan Patient's most recent echocardiogram in November 2017 showed an ejection fraction of 50%. Patient does acknowledge some shortness of breath associated with his recent respiratory cold. He appears to be tolerating Coreg well. He will continue both Coreg and lisinopril. We will continue to monitor this through history, exam, and repeat echocardiogram as needed. We will titrate medications accordingly. 3. Essential hypertension I10 Plan Patient's blood pressure is on the higher end of expected range. Due to his history of bradycardia his Coreg will not be adjusted at this time. He was asked to continue to engage in weight loss, which will hopefully improve his blood pressure. 4. Pure hypercholesterolemia E78.00; E78.0 Plan This is managed by primary care physician. Patient brought lipid panel results from primary care physician and it showed total cholesterol: 176, LDL: 70, HDL: 53, triglycerides: 266, and non-HDL cholesterol: 123. Based on these results it was recommended that he continue with [...] care physician for this. 6. Class 3 severe obesity due to excess calories with serious comorbidity and body mass index (BMI) of 40.0 to 44.9 in adult E66.01; Z68.41 Plan This again remains patient's main concern. He does have a history of significant weight loss in the past. He states [...] index: BMI 40.0-44.9 Coding Level of Care Code Off vis,est,level [...] FERNANDEZ Cosigner Signature: Date (if applicable) CC: Charlene Dennison MD 12 LEAD ELECTROCARDIOGRAM Observed: 02/17/2018 Status: F Source: KIM 1:58 PM [facility] Cardiovascular Services [address] [place] [address] [place] [address] 12 Lead EKG 02/15/18 0831 MR#: [id number] Acct: [id number] Name: VISHAL BAILEY Rep #: [id number] : 1960 57 From: Ken Ortiz MD [...] ms Atrial flutter with variable A-V block Left bundle branch block Abnormal ECG Confirmed by MUNA SILVA, KEN ([id number]), medical transcription editor MATTI DOBSON (56) on 02/17/2018 1:57:55 PM Referred By: ARIELLE Confirmed By:KEN ORTIZ MD 02/17/18 1358 Date Ken Ortiz MD CC: Charlene Dennison MD; Abhijti Lea MD; Celia Khanna MD Signed 12 LEAD ELECTROCARDIOGRAM Observed: 02/17/2018 Status: F Source: BLUFF 1:39 PM [facility] Cardiovascular Services [address] [place] [address] 12 Lead EKG 02/15/18 1002 MR#: [id number] Acct: [id number] Name: VISHAL BAILEY Rep #: [id number] : 1960 57 From: Ken Ortiz MD [...] Normal sinus rhythm Septal infarct , age undetermined Abnormal ECG Confirmed by KEN ORTIZ MD ([id number]), medical transcription editor MATTI DOBSON (56) on 02/17/2018 1:38:59 PM Referred By: MINERVA Confirmed By:KEN ORTIZ MD 02/17/181338 Date Ken Ortiz MD CC: Charlene Dennison MD; Abhijit Lea MD Signed 12 LEAD ELECTROCARDIOGRAM Observed: 02/17/2018 Status: F Source: BLUFF 1:39 PM [facility] Cardiovascular Services [address] [place] [address] 12 Lead EKG 02/15/18 0902 MR#: [id number] Acct: [id number] Name: VISHAL BAILEY Rep #: [id number] : 1960 57 From: Ken Ortiz MD [...] ms Atrial fibrillation Abnormal ECG Confirmed by KEN ORTIZ MD ([id number]), medical transcription editor MATTI DOBSON (56) on 02/17/2018 1:39:12 PM Referred By: MINERVA Confirmed By:KEN ORTIZ MD 02/17/181338 Date Ken Ortiz MD CC: Charlene Dennison MD; Abhijit Lea MD Signed EMERGENCY DEPARTMENT Observed: 02/15/2018 Status: F Source: BLUFF SUMMARY 5:06 PM [facility] Medical Records Department [address] [place] [address] Emergency Department Summary 02/15/18 0928 MR#: [id number] Acct: [id number] Name: VISHAL BAILEY Rep #: [id number] : 1960 57 From: Abhijit Lea MD PCP: Charlene Dennison MD Status: DEP ER - ER Visit Summary Date of Service: 02/15/18 Chief Complaint: Heart racing History of Present Illness: The patient is a 57 M with a history of a flutter, CHF, diabetes, hypertension, hyperlipidemia, and alcohol abuse. Patient presents today for heart racing and palpitations. The started yesterday at 7 PM. He felt them start. [...] metoprolol in the past, but he was bradycardic with this and so this was stopped. [...] alert and oriented. Appears comfortable. Heart is irregularly irregular. Lungs are clear. Abdomen soft. Extremities [...] remained in what appeared to be atrial fibrillation. His QRS complex narrowed. He had no sign of underlying ischemia or infarction on the repeat EKG. His workup was unremarkable. I paged Dr. Ortiz was on-call for Dr. Goldman. He advised a dose of Lovenox, waiting 2 hours, and then electrical cardioversion. If this is successful, the patient may be sent home on Xarelto, and he can follow- up in the office. Awaiting electrical cardioversion, the patient converted to sinus rhythm. Rate [...] Atrial flutter This note was generated with [employer] software. It may contain incorrect words, spelling, and punctuation that were not noted in review of the chart prior to signing ED Disposition - Plan for ED Patient: Chief Complaint: Palpitations Referrals: Charlene Dennison MD [Primary Care Provider] - What to do if you have Problems For any increased pain, shortness of breath, bleeding, nausea or vomiting, chest pain, or any unexpected problems, contact your Primary Care Provider. Call [facility] ([phone]) or report to the closest Emergency Room. Call 911 if necessary. 02/15/18 1706 <Electronically signed by Abhijit Lea MD> Date Abhijit Lea MD Cosigner Signature (If Indicated): Date CC: Charlene Dennison MD DISCHARGE INSTRUCTION Observed: 02/15/2018 Status: F Source: KIM 5:06 PM [facility] Medical Records Department [address] [place] [address] Discharge Instruction 02/15/18 1015 MR#: [id number] Acct: [id number] Name: VISHAL BAILEY Rep #: [id number] : 1960 57 From: Abhijit Lea MD PCP: Charlene Dennison MD Status: [facility] ER ED Disposition - Plan for ED Patient: Chief Complaint: Palpitations Instructions: ED Paroxysmal Atrial Flutter Prescriptions: Rivaroxaban [Xarelto] 20 mg PO DAILY #30 tab Referrals: Charlene Dennison MD [Primary Care Provider] - Stiven Goldman MD [STAFF PHYSICIAN] - What to do if you have Problems For any increased pain, shortness of breath, bleeding, nausea or vomiting, chest pain, or any unexpected problems, contact your Primary Care Provider. Call [facility] ([phone]) or report to the closest Emergency Room. Call 911 if necessary. 02/15/18 1706 <Electronically signed by Abhijit Lea MD> Date Abhijit Lea MD Cosigner Signature (If Indicated): Date CC: Charlene Dennison MD CHEST 1 VIEW Observed: 02/15/2018 Status: F Source: BLUFF (PORTABLE) 8:41 AM [facility] [place] Imaging Services [address] [place] [address] Chest 1 View (Portable) MR#: [id number] Acct: [id number] Name: VISHAL BAILEY Rep #: [id number] : 1960 M 57 From: Anthony Guzman MD PCP: Charlene Dennison MD Status: [facility] ER Study: Chest 1 View (Portable) Date of Exam: 02/15/18 Exam# [id number] Ordering Dr: Abhijit Lea MD STUDY: X-RAY CHEST REASON FOR EXAM: Male, 57 years old. Palpitations. TECHNIQUE: Single AP portable view of the chest. COMPARISON: December 07, 2017. FINDINGS: There are monitoring devices. The lungs are clear and expanded. [...] 9:06 EDT , Service support , CC: Charlene Dennison MD; Abhijit Lea MD Client Consultant: Signed CBC W/DIFF, AUTOMATED Collected: 02/15/2018 Status: F Source: BLUFF 8:40 AM [facility] TYPE CODE TESTS RESULT OUT OF RANGE REFERENCE UNITS LAB L100.1000 4.4-11.0 K/mm3 Normal WBC 10.0 LAB L100.1200 4.6-6.2 M/mm3 Normal RBC 5.20 LAB L100.1300 13.0-16.5 g/dl Normal HGB 15.7 LAB L100.1400 40-54 % Normal HCT 47.1 LAB L100.1500 80-94 fL Normal MCV 90.6 LAB L100.1600 27.0-32.0 pg Normal MCH 30.2 LAB L100.1700 32-36 g/gl Normal MCHC 33.3 LAB L100.1810 11.6-14.6 % Normal RDW CV 13.7 LAB L100.1820 35.1-43.9 fl High RDW SD 45.4 LAB L100.1900 150-450 K/mm3 Normal PLT 298 LAB L100.2000 6.2-12.0 fl Normal MPV 8.6 LAB L100.2100 47-70 % Normal NEUT% 65.1 LAB L100.2200 19-41 % Normal LY% 22.8 LAB L100.2300 0-10 % Normal MONO% 8.0 LAB L100.2400 0-5 % Normal EO% 3.0 LAB L100.2500 0-1 % Normal BASO% 0.6 LAB L100.2550 0.0-0.9 % Normal IM GRAN % 0.500 Result Comment: IG% - Immature Granulocytes (promyelocytes, myelocytes and metamyelocytes) > 1% indicates that a LEFT SHIFT is Present. LAB L100.2620 2.0-7.7 X10 3/uL Normal Absolute Neut 6.5 LAB L100.2720 0.83-4.51 X10 3/ul Normal Absolute Lymph 2.28 Performed By: #### L100.0100 #### [facility] [address] [place], [address] BASIC METABOLIC Collected: 02/15/2018 Status: F Source: BLUFF PROFILE (BMP) 8:40 AM [facility] Order Comment: 'TROP' Serial specimen #1, #2, #3, or #4: 1 TYPE CODE TESTS RESULT OUT OF RANGE REFERENCE UNITS LAB L501.0100 74-106 mg/dL High GLU 122 Result Comment: Fasting Glucose result from 100 to 125 mg/dL suggests IMPAIRED HOMEOSTASIS per A.D.A. criteria. Please note revised GLUCOSE reference range effective 2017. LAB L501.1000 7-18 mg/dL Normal BUN 16 LAB L501.1100 0.70-1.30 mg/dL Normal CREAT,SERUM 0.90 Result Comment: The validity of the calculated GFR AND GFRAA in patients over 70 years has not been determined. Clinical correlation is essential. LAB L501.1110 >60 mL/min Normal EST GFR 93 Result Comment: Non- GFR Calc LAB L501.1115 >60 mL/min Normal EST GFR - AA 112 Result Comment: GFR Calc LAB L501.1255 ml/min Normal Estimated CRCL 104.81 LAB L501.1300 10-20 RATIO BUN/CRE Normal 17.7 LAB L501.2200 8.5-10 mg/dL .1 CA Normal 8.8 LAB L501.5300 136-14 mmol/L 5 NA Normal 143 LAB L501.5600 3.5-5. mmol/L 1 K Normal 4.4 LAB L501.5900 98-107 mmol/L CL Normal 106 LAB L501.6100 21.0-3 mmol/L 2.0 CO2 Normal 30.0 LAB L501.6200 5-15 GAP Normal 7 Performed By: #### L500.2500, L501.4010 #### [facility] [address] [place], [address] TROPONIN-I Collected: 02/15/2018 Status: F Source: KIM 8:40 AM [facility] Order Comment: 'TROP' Serial specimen #1, #2, #3, or #4: 1 TYPE CODE TESTS RESULT OUT OF RANGE REFERENCE UNITS LAB L501.4010 <0.06 ng/mL Normal < 0.02 TROPONIN-I Result Comment: TROPONIN-I EXPECTED VALUES <0.05 NEGATIVE 0.06 - 0.59 AT RISK OF MA > OR = 0.60 SUGGEST MA Performed By: #### L500.2500, L501.4010 #### [facility] [address] [place], [address] ALLERGIES ALLERGIES DATE TYPE / CODE NAME / CODE REACTION SEVERITY SOURCE 11/04/2018 Drug No Known Unknown [facility] Allergy/4160 Allergies/F00 Hospital [address](SNOMED 4247426(RXNOR Repository CT) M) ENCOUNTERS ENCOUNTERS ADMIT/DISCHARGE ACCOUNT ADMITTING ENCOUNTER LOCATION SOURCE NUMBER CLASS 11/24/2018 [id number] Ambulatory Building:[facility] Practices Repository 11/04/2018/ [id number] Emergency [place] 8 9 [facility] ing:ED Repository 08/20/2018/ [id number] Emergency [place] 8 8 [facility] ing:ED Repository 04/09/2018/ [id number] Ambulatory BMSBuilding:B [place] 8 8 [facility] Repository 04/09/2018 [id number] Ambulatory BMSBuilding:B [place] 2 [facility] Repository 04/07/2018 [id number] Ambulatory BMS [place] 3 [facility] Repository 03/26/2018 [id number] Ambulatory BMSBuilding:B [place] 5 [facility] Repository 03/25/2018 [id number] Ambulatory BMSBuilding:B [place] 2 [facility] Repository 03/18/2018 [id number] Ambulatory BMS [place] 7 [facility] Repository 03/11/2018 [id number] Ambulatory BMSBuilding:B [place] 8 [facility] Repository 02/28/2018 [id number] Ambulatory BMSBuilding:B [place] 1 [facility] Repository 02/27/2018 [id number] Ambulatory BMSBuilding:B [place] 2 [facility] Repository 02/19/2018 [id number] Ambulatory BMSBuilding:B [place] 1 [facility] Repository 02/15/2018/ [id number] Emergency [place] 8 0 [facility] ing:ED Repository 12/19/2017 [id number] Ambulatory [place] 9 [facility] ing:PSN Repository 12/19/2017 [id number] Ambulatory BMSBuilding:W [place] 5 [facility] Repository FUNCTIONAL STATUS FUNCTIONAL STATUS No Functional Status Records FoundEQUIPMENT EQUIPMENT No Equipment Records FoundPAYERS PAYERS ENCOUNTER GUARANTOR PAYER SUBSCRIBER SOURCE 11/24/2018 VISHAL QUIROZ REEDDOB: [place] Practices REEDDOB: Insurance:Medical [id number] Repository [place] [address] Number: [place], [place] [id number] [address]Jjd: [phone]: ([phone]) Date:7918-45-73Zfoy (HP) 416 (HP) Name:[address], [place] [id number]: 11/24/2018 Secondary VISHAL Davila [facility] Practices Insurance:[place] REEDDOB: Repository /[facility] Number: [id number] Date:2005-12-19 - [place] 1828-14-03Nsro [address]You: Name:[phone], [place] [address] HP) [id number]: 11/04/2018 VISHAL R Primary RICHIE K REEDDOB: [place] [id number] Insurance:MEDICAL [id number] [facility] [address]Els: (330) Number: Repository [phone] () [id number] Date:4542-86-85HX [address] [place] [id number]: 11/04/2018 Secondary NOT GIVENUNK [place] Insurance:SELF PAY [facility] Number: Effective Repository Date:2018-11-04 08/20/2018 VISHAL R Primary RICHIE Kim REEDDOB: [place] [id number] Insurance:MEDICAL [id number] [facility] [address]Fiz: (330) Number: Repository [phone] () [id number] Date:8891-54-83UA [address] [place], [place] [address]WP: 08/20/2018 Secondary NOT GIVENUNK [place] Insurance:SELF PAY [facility] Number: Effective Repository Date:2018-08-20 04/09/2018 VISHAL R Primary RICHIE [place] REEDDOB: [place] [id number] Insurance:MEDICAL [id number] [facility] [address]Qim: Number: Repository [phone] [id number] () Date:8896-99-54C[address] [address]QL: 04/09/2018 Secondary NOT GIVENUNK [place] Insurance:SELF PAY [facility] Number: Effective Repository Date:2018-04-09 04/09/2018 Vishal [id number] Primary Vishal BaileyDOB: [place] Insurance:MEDICAL [id number] [facility] [address]Blv: (330) Number: Repository [phone] () [id number] Date:9688-43-78BR [address] [place] [id number]: 04/09/2018 Secondary NOT GIVENUNK [place] Insurance:SELF PAY [facility] Number: Effective Repository Date:2018-04-09 04/07/2018 Vishalreginald [id number] Primary Vishal ReedDOB: [place] Insurance:MEDICAL [id number] [facility] [address]Cyd: (330) Number: Repository [phone] () [id number] Date:1275-84-48LA [place] [id number]: 04/07/2018 Secondary NOT GIVENUNK [place] Insurance:SELF PAY [facility] Number: Effective Repository Date:2018-04-07 03/26/2018 Vishal [id number] Primary Vishal ReedDOB: [place] Insurance:MEDICAL [id number] [facility] [address]Anh: (330) Number: Repository [phone] () [id number] Date:2308-67-73PTMichael [place] [id number]: 03/26/2018 Secondary NOT GIVENUNK [place] Insurance:SELF PAY [facility] Number: Effective Repository Date:2018-03-26 03/25/2018 Vishalreginald [id number] Primary Vishal ReedDOB: [place] Insurance:MEDICAL [id number] Memorial Hospital [address]Sui: (330) Number: Repository [phone] () [id number] Date:1648-99-95EU [address] [address]HU: 03/25/2018 Secondary NOT GIVENUNK [place] Insurance:SELF PAY [facility] Number: Effective Repository Date:2018-02-28 03/18/2018 Vishal [id number] Primary Vishal ReedDOB: [place] Insurance:MEDICAL [id number] Memorial Hospital [address]Srv: (330) Number: Repository [phone] () [id number] Date:0916-48-26PTMichael [place] [id number]: 03/18/2018 Secondary NOT GIVENUNK [place] Insurance:SELF PAY [facility] Number: Effective Repository Date:2018-03-18 03/11/2018 Vishalreginald [id number] Primary Vishal ReedDOB: [place] Insurance:MEDICAL [id number] [facility] [address]Jgz: (330) Number: Repository [phone] () [id number] Date:1481-43-62YW [place] [id number]: 03/11/2018 Secondary NOT GIVENUNK [place] Insurance:SELF PAY [facility] Number: Effective Repository Date:2018-03-11 02/28/2018 Vishal [id number] Primary Vishal ReedDOB: [place] Insurance:MEDICAL [id number] Memorial Hospital [address]Ctp: (330) Number: Repository [phone] () [id number] Date:1877-03-64KH [address] [address]LQ: 02/28/2018 Secondary NOT GIVENUNK [place] Insurance:SELF PAY [facility] Number: Effective Repository Date:2018-02-17 02/27/2018 Vishalreginald [id number] Primary Vishal ReedDOB: [place] Insurance:MEDICAL [id number] [facility] [address]Pvg: (330) Number: Repository [phone] () [id number] Date:5416-81-78WW [address] [address]CI: 02/27/2018 Secondary NOT GIVENUNK [place] Insurance:SELF PAY [facility] Number: Effective Repository Date:2018-02-27 02/19/2018 Vishal [id number] Primary Vishal ReedDOB: [place] Insurance:MEDICAL [id number] [facility] [id number]: (330) Number: Repository [phone] () [id number] Date:[id number] [address] [address]GJ: 02/19/2018 Secondary NOT GIVENUNK [place] Insurance:SELF PAY [facility] Number: Effective Repository Date:2018-02-19 02/15/2018 Vishal [id number] Primary Vishal ReedDOB: Kim Sandoval Insurance:MEDICAL [id number] [id number]: (330) Number: Repository [phone] () [id number] Date:7828-78-01SS [address] [address]DB: 02/15/2018 Secondary NOT GIVENUNK [place] Insurance:SELF PAY [facility] Number: Effective Repository Date:2018-02-15 12/19/2017 Vishalreginald [id number] Primary Vishal ReedDOB: [place] Insurance:MEDICAL [id number] [facility] Hospital [address]Nqg: (330) Number: Repository [phone] () [id number] Date:5837-23-87BA [address] [address]PK: 12/19/2017 Secondary NOT GIVENUNK [place] Insurance:SELF PAY [facility] Number: Effective Repository Date:2017-12-09 12/19/2017 Vishalreginald [id number] Primary Vishal ReedDOB: [place] Sandoval Insurance:MEDICAL [id number] Memorial Hospital [address]Ray: (330) Number: Repository [phone] () [id number] Date:0423-02-10ZY [address] [address]TL: 12/19/2017 Secondary NOT GIVENUNK [place] Insurance:SELF PAY [facility] Number: Effective Repository Date:2017-12-19 SOCIAL HISTORY SOCIAL HISTORY No Social History Records FoundFAMILY HISTORY FAMILY HISTORY No Family History Records FoundPREGNANCY No Status Records FoundADVANCE DIRECTIVES ADVANCE DIRECTIVES No Advanced Directives Records FoundINFORMATION SOURCE INFORMATION SOURCE DATE CREATED AUTHOR AUTHOR'S ORGANIZATION 12/10/2018 OHIP
== END 2018-11-04 20:22 | disposition home or self-care (01) ==
LOC: ED 15:19
PROVIDERS: Emergency Provider Emergency Medicine; Family Provider Internal Medicine; PCP Internal Medicine
DX: I48.92 Unspecified atrial flutter (principal); E83.42 Hypomagnesemia; I10 Essential (primary) hypertension; R06.02 Shortness of breath; Z79.01 Long term (current) use of anticoagulants; Z79.82 Long term (current) use of aspirin; Z79.899 Other long term (current) drug therapy
CPT/HCPCS: 36591; 71045; 80048; 83735; 83880; 84484; 85025; 93005; 96361; 96365; 96366; 96375; 99285; J7030; A4216

== ENCOUNTER 2019-01-08 21:05 | Inpatient (IN) | payer OTHER, SELFPAY ==
[2018-12-30 08:47] VITALS: BMI 47.2
[2019-01-08] VITALS (7 sets, daily range): BP systolic 146–184; BP diastolic 97–125; PULSE 79–142; RESP 18–30; TEMP 36.6; O2SAT 93–99; BMI 46.1
--- NOTE | 2019-01-08 21:28 | EKG12_ITS ---
Test Reason : Blood Pressure : / mmHG Vent. Rate : 126 BPM Atrial Rate : 126 BPM P-R Int : 000 ms QRS Dur : 122 ms QT Int : 310 ms P-R-T Axes : 000 028 078 degrees QTc Int : 448 ms Atrial fibrillation with rapid ventricular response Non-specific intra-ventricular conduction delay Abnormal ECG Confirmed by CAMERON SILVA, TY ([id number]), editorial project manager MICHAEL JACKSON ([id number]) on 01/12/2019 5:14:53 PM Referred By: KAVON Confirmed By:TY BARNES MD
--- NOTE | 2019-01-08 21:30 | RAD_ITS ---
STUDY: X-RAY CHEST REASON FOR EXAM: Male, 58 years old. Shortness of breath. TECHNIQUE: Single AP portable view of the chest. COMPARISON: 11/04/2018. FINDINGS: The lungs are clear and expanded. There is no demonstrated pleural abnormality. Normal size heart. Normal mediastinum and nicol. Normal visualized pulmonary arteries. Normal visualized aortic arch and descending thoracic aorta. The thoracic spine is obscured. Normal visualized ribs, clavicles, and shoulders. There is no demonstrated abnormality of the visualized soft tissue structures of the upper abdomen. RAD/Chest 1 View (Portable) IMPRESSION: No active pulmonary disease. Electronically Signed: Benjamin Walton MD at 22:29 EST Tel , Service support ,
--- NOTE | 2019-01-08 21:30 | ED.VISSUMM ---
- ER Visit Summary Date of Service: 01/08/19 Chief Complaint: Heart racing History of Present Illness: The patient is a 58 M who presents for palpitations. Patient has history of atrial flutter that is resulted in need for cardioversion 3 times last year. Today patient was helping a family member carry some plywood when he began having palpitations. After approximately 30 minutes they resolved. Tonight he went to bed and then woke up with significant sustained palpitations. He has associated shortness of breath. He denies any vision changes, headache, chest pain, dizziness or lightheadedness or other complaints. Patient is on Xarelto. Also has history of hypertension. He is a daily drinker and drinks approximately 12 beers per day. Data Center Technician is Dr. Goldman Physical Examination: Vital signs: afebrile, normotensive, tachycardic, no hypoxia on room air General: well nourished, well developed, in no distress Skin: warm, dry, no rash, no pallor no diaphoresis HEENT: normocephalic and atraumatic; PERRL, EOMI, moist mucous membranes Cardiovascular: Irregularly irregular tachycardia without murmurs, no peripheral edema, 2+ pulses all distal extremities Respiratory: No increased work of breathing, lungs are clear to auscultation bilaterally, no rales, rhonchi or wheezing Abdominal: Abdomen is soft, nontender with normoactive bowel sounds, no guarding or rebound, no masses MSK: Moves all extremities, no deformities, normal strength Neuro: Awake and alert, oriented ?4. No facial droop, sensation and motor function intact and symmetric Test Results: Abnormal Lab Results 01/08/19 01/08/19 01/08/19 21:42 21:42 21:42 WBC 8.4 RBC 4.93 Hgb 14.1 Hct 43.5 MCV 88.2 MCH 28.6 MCHC 32.4 RDW 13.7 RDW Differential 44.1 H Plt Count 225 MPV 8.6 Immature Gran % (Auto) 0.700 Neut % (Auto) 55.7 Lymph % (Auto) 31.8 [place] % (Auto) 7.0 Eos % (Auto) 4.4 Baso % (Auto) 0.4 Absolute Neuts (auto) 4.7 Absolute Lymphs (auto) 2.66 Total Counted Not Reportable PT 22.7 H INR 2.0 APTT 37.5 H Sodium 140 Potassium 3.5 Chloride 100 Carbon Dioxide 27.0 Anion Gap 13 BUN 15 Creatinine 0.90 Estim Creat Clear Calc 103.57 Est GFR (MDRD) Af Amer 112 Est GFR (MDRD) Non-Af 92 BUN/Creatinine Ratio 16.6 Glucose 158 H Calcium 8.6 Magnesium 1.5 L Troponin I < 0.015 TSH 6.43 H Clinical Impression(s) from Imaging Studies Chest X-Ray 01/08/19 21:30 IMPRESSION: No active pulmonary disease. Electronically Signed: Benjamin Walton MD at 22:29 EST Tel , Service support , Medications Given Sodium Chloride () 1,000 mls @ 150 mls/hr IV .[id number] [id number] Last Admin: 01/08/19 21:47 Dose: 150 mls/hr Discontinued Medications Diltiazem HCl (Cardizem) 25 mg IV BOLUS X1 ONE Stop: 01/08/19 21:30 Last Admin: 01/08/19 21:47 Dose: 25 mg Etomidate (Amidate) 30 mg IV X1 ONE; Protocol Stop: 01/08/19 23:23 Emergency Department Course and Treatment: Patient presents in uncontrolled atrial fibrillation with RVR and with underlying left bundle branch block. Patient is hemodynamically stable, has minimal symptoms and is mentating normally, thus rate control with diltiazem is initially tried. Rate control was achieved into the 90s and low 100s, however patient requested cardioversion so that he could go home. He was discussed with Dr. Hernández, who felt attempted cardioversion and discharge for outpatient follow-up was appropriate. If unsuccessful, plan was to admit patient for rate control until cardiology can be consulted. Patient's magnesium was low and repleted with IV magnesium. Patient was consented for procedural sedation and synchronized cardioversion. Risks and benefits were discussed of both procedures and patient signed consent form. Pre-sedation airway evaluation was performed and patient was placed on nonrebreather and on monitoring. Timeout was performed. Patient was given 20 mg of etomidate by slow IV push. After good sedation was achieved, synchronized cardioversion was performed at 150 J biphasic. Patient remained in A. fib with RVR. Patient continued to maintain his own airway, good oxygen saturation and blood pressure. Cardioversion was again performed this time at 200 J biphasic, synchronized. Again unsuccessful and patient remained in A. fib with RVR. Pads were repositioned and a final attempt at cardioversion at 200 J biphasic, synchronized, was attempted. Patient again maintained atrial fibrillation with RVR. At this time attempts at further electrical cardioversion were discontinued. Patient woke up shortly thereafter. He tolerated the procedure well. Patient was started again on Cardizem and placed on a Cardizem drip. He was discussed with the hospitalist for admission for rate control of atrial fibrillation with RVR pending cardiology consult for further intervention. At time of reevaluation, heart rate was between 70 and 80, A. fib, rate controlled on the Cardizem. Critical care time of 40 minutes independent of separately billable procedures for initial emergent evaluation, coordination of care, frequent reevaluations, interpretation of EKG and labs, discussion with cardiology and hospitalist, documentation. Treatment Plan: [] Disposition: [] Impression: A. fib with RVR, failed electrical synchronized cardioversion, hypomagnesemia This note was generated with [employer] dictation software. It may contain incorrect words, spelling, and punctuation that were not noted in review of the chart prior to signing ED Disposition - Plan for ED Patient: Referrals: Charlene Dennison MD [Primary Care Provider] -
--- NOTE | 2019-01-08 21:33 | ED.DCSUM_ITS ---
- ER Visit Summary Date of Service: 01/08/19 Chief Complaint: Heart racing History of Present Illness: The patient is a 58 M who presents for palpitations. Patient has history of atrial flutter that is resulted in need for cardioversion 3 times last year. Today patient was helping a family member carry some plywood when he began having palpitations. After approximately 30 minutes they resolved. Tonight he went to bed and then woke up with significant sustained palpitations. He has associated shortness of breath. He denies any vision changes, headache, chest pain, dizziness or lightheadedness or other complaints. Patient is on Xarelto. Also has history of hypertension. He is a daily drinker and drinks approximately 12 beers per day. Security Delivery Specialist is Dr. Goldman Physical Examination: Vital signs: afebrile, normotensive, tachycardic, no hypoxia on room air General: well nourished, well developed, in no distress Skin: warm, dry, no rash, no pallor no diaphoresis HEENT: normocephalic and atraumatic; PERRL, EOMI, moist mucous membranes Cardiovascular: Irregularly irregular tachycardia without murmurs, no peripheral edema, 2+ pulses all distal extremities Respiratory: No increased work of breathing, lungs are clear to auscultation bilaterally, no rales, rhonchi or wheezing Abdominal: Abdomen is soft, nontender with normoactive bowel sounds, no guarding or rebound, no masses MSK: Moves all extremities, no deformities, normal strength Neuro: Awake and alert, oriented ?4. No facial droop, sensation and motor function intact and symmetric Test Results: Abnormal Lab Results 01/08/19 01/08/19 01/08/19 21:42 21:42 21:42 WBC 8.4 RBC 4.93 Hgb 14.1 Hct 43.5 MCV 88.2 MCH 28.6 MCHC 32.4 RDW 13.7 RDW Differential 44.1 H Plt Count 225 MPV 8.6 Immature Gran % (Auto) 0.700 Neut % (Auto) 55.7 Lymph % (Auto) 31.8 [place] % (Auto) 7.0 Eos % (Auto) 4.4 Baso % (Auto) 0.4 Absolute Neuts (auto) 4.7 Absolute Lymphs (auto) 2.66 Total Counted Not Reportable PT 22.7 H INR 2.0 APTT 37.5 H Sodium 140 Potassium 3.5 Chloride 100 Carbon Dioxide 27.0 Anion Gap 13 BUN 15 Creatinine 0.90 Estim Creat Clear Calc 103.57 Est GFR (MDRD) Af Amer 112 Est GFR (MDRD) Non-Af 92 BUN/Creatinine Ratio 16.6 Glucose 158 H Calcium 8.6 Magnesium 1.5 L Troponin I < 0.015 TSH 6.43 H Clinical Impression(s) from Imaging Studies Chest X-Ray 01/08/19 21:30 IMPRESSION: No active pulmonary disease. Electronically Signed: Benjamin Walton MD at 22:29 EST Tel , Service support , Medications Given Sodium Chloride () 1,000 mls @ 150 mls/hr IV .[id number] JAYDE Last Admin: 01/08/19 21:47 Dose: 150 mls/hr Discontinued Medications Diltiazem HCl (Cardizem) 25 mg IV BOLUS X1 ONE Stop: 01/08/19 21:30 Last Admin: 01/08/19 21:47 Dose: 25 mg Etomidate (Amidate) 30 mg IV X1 ONE; Protocol Stop: 01/08/19 23:23 Emergency Department Course and Treatment: Patient presents in uncontrolled atrial fibrillation with RVR and with underlying left bundle branch block. Patient is hemodynamically stable, has minimal symptoms and is mentating normall y, thus rate control with diltiazem is initially tried. Rate control was achieved into the 90s and low 100s, however patient requested cardioversion so that he could go home. He was discussed with Dr. Hernández, who felt attempted cardioversion and discharge for outpatient follow-up was appropriate. If unsuccessful, plan was to admit patient for rate control until cardiology can be consulted. Patient's magnesium was low and repleted with IV magnesium. Patient was consented for procedural sedation and synchronized cardioversion. Risks and benefits were discussed of both procedures and patient signed consent form. Pre-sedation airway evaluation was performed and patient was placed on nonrebreather and on monitoring. Timeout was performed. Patient was given 20 mg of etomidate by slow IV push. After good sedation was achieved, synchronized cardioversion was performed at 150 J biphasic. Patient remained in A. fib with RVR. Patient continued to maintain his own airway, good oxygen saturation and blood pressure. Cardioversion was again performed this time at 200 J biphasic, synchronized. Again unsuccessful and patient remained in A. fib with RVR. Pads were repositioned and a final attempt at cardioversion at 200 J biphasic, synchronized, was attempted. Patient again maintained atrial fibrillation with RVR. At this time attempts at further electrical cardioversion were dis continued. Patient woke up shortly thereafter. He tolerated the procedure well. Patient was started again on Cardizem and placed on a Cardizem drip. He was discussed with the hospitalist for admission for rate control of atrial fibrillation with RVR pending cardiology consult for further intervention. At time of reevaluation, heart rate was between 70 and 80, A. fib, rate controlled on the Cardizem. Critical care time of 40 minutes independent of separately billable procedures for initial emergent evaluation, coordination of care, frequent reevaluations, interpretation of EKG and labs, discussion with cardiology and hospitalist, documentation. Treatment Plan: [] Disposition: [] Impression: A. fib with RVR, failed electrical synchronized cardioversion, hypomagnesemia This note was generated with [employer] dictation software. It may contain incorrect words, spelling, and punctuation that were not noted in review of the chart prior to signing ED Disposition - Plan for ED Patient: Referrals: Charlene Dennison MD [Primary Care Provider] -
[2019-01-08] MEDS: dilTIAZem 25 MG/5 ML Vial IV BOLUS ×2 (21:47→23:58)
[2019-01-08] MEDS: 0.9% Normal Saline 1,000 ML 150 ML IV (21:47)
[2019-01-08 21:53] LABS: Absolute Lymphocyte Count 2.66 X10^3/ul (0.83-4.51); Absolute Neutrophil Count 4.7 X10^3/uL (2.0-7.7); Basophil# 0.03 X10^3/uL; Basophil% 0.4 % (0-1); Eosinophil# 0.37 X10^3/uL; Eosinophils% 4.4 % (0-5); Hematocrit 43.5 % (40-54); Hemoglobin 14.1 g/dl (13.0-16.5); Lymphocyte # 2.66 X10^3/ul (4.0); Lymphocyte % 31.8 % (19-41); Mean Corp Hgb Conc 32.4 g/gl (32-36); Mean Corpuscular Hgb 28.6 pg (27.0-32.0); Mean Corpuscular Volume 88.2 fL (80-94); Mean Platelet Vol. 8.6 fl (6.2-12.0); Monocyte# 0.59 X10^3/uL; Neutrophil # 4.66 X10^3/uL (2.7-7.7); Neutrophil % 55.7 % (47-70); Platelet Count 225 K/mm3 (150-450); RBC Distribution Width CV 13.7 % (11.6-14.6); RBC Distribution Width SD 44.1 fl (35.1-43.9); Red Blood Count 4.93 M/mm3 (4.6-6.2); White Blood Count 8.4 K/mm3 (4.4-11.0)
[2019-01-08 21:54] LABS: POSITIVE COUNT NO; POSITIVE DIFFERENTIAL NO; POSITIVE MORPHOLOGY NO
[2019-01-08 22:01] LABS: Prothrombin Time (Protime)PT. 22.7 SECONDS (11.7-14.9)
[2019-01-08 22:10] LABS: Partial Thromboplast Time 37.5 Seconds (24.1-36.2)
[2019-01-08 22:17] LABS: Anion Gap 13 (5-15); BUN 15 mg/dL (7-18); BUN/Creat Ratio 16.6 RATIO (10-20); Calcium,Total 8.6 mg/dL (8.5-10.1); Chloride 100 mmol/L (98-107); EST Glomerular Filtration Rate 92 mL/min (>60); Est Glom Filt Rate - Afr Amer 112 mL/min (>60); Estimated Creatinine Clearance 103.57 ml/min; Glucose 158 mg/dL (74-106); Magnesium 1.5 mg/dL (1.6-2.6); Potassium 3.5 mmol/L (3.5-5.1); Sodium Level 140 mmol/L (136-145); Thyroid Stim Hormone (TSH) 6.43 uIU/mL (0.358-3.74)
[2019-01-08] MEDS: Etomidate 20 MG/10 ML Vial 30 MG IV (23:53)
--- NOTE | 2019-01-08 23:53 | PCM.HP.STD ---
Problem List (1) Atrial flutter with rapid ventricular response Status: Acute History of Present Illness Date of Admission: 01/08/19 Chief Complaint: PALPITATIONS The patient is a 58 year old M with a significant history of morbid obesity; hypertension; A flutter and alcoholism who presented with palpitations that started on the same day of admission. Earlier on in the day of admission patient was helping carry plywood and developed palpitation which resolved after rest. He then woke up with palpitations. He tried to check his pulse with a machine and his pulse was ranging between 40-135. He felt like his heart was skipping a beat. Associated with his symptoms is shortness of breath. Patient was cardioverted about 2 months ago. At emergency department patient was found to be in a flutter with a heart rate of 140-160. Cardioversion was attempted x3 times and his heart rate rather increased. Emergency department doctor discussed the case with remote operations producer. Patient received Cardizem bolus and was started on a Cardizem drip. Because patient magnesium was 1.5 he received supplemental magnesium. Patient follow-up with Dr. Goldman, remote operations producer. Past Medical History Past Medical History (Chronic Problems): Chronic Problems (Last Reviewed 12/30/18 @ 10:37 by Azul Quinteros) Hypersomnolence (Chronic) Paroxysmal atrial flutter (Chronic) S/P DCCV 05/15/2014; 11/04/2018 in ER; Systolic dysfunction (Chronic) Cardiomyopathy (Chronic) Hyperlipidemia (Chronic) Palpitations (Chronic) Diabetes mellitus type 2 in obese (Chronic) Anxiety disorder (Chronic) Obesity (Chronic) Hypertension (Chronic) Medical History: Medical History (Last Reviewed 01/09/19 @ 09:06 by Matt Espinoza MD) Paroxysmal atrial flutter (Chronic) I48.92 S/P DCCV 05/15/2014; 11/04/2018 in ER; Systolic dysfunction (Chronic) I51.9 Cardiomyopathy (Chronic) I42.9 Hyperlipidemia (Chronic) E78.5 Palpitations (Chronic) R00.2 Diabetes mellitus type 2 in obese (Chronic) E11.9, E66.9 Anxiety disorder (Chronic) F41.9 Obesity (Chronic) E66.9 Hypertension (Chronic) I10 Allergies No Known Allergies Allergy (Verified 01/08/19 21:08) Home Medications: Ambulatory Orders Medication Instructions Recorded Allopurinol 100 mg PO DAILY 05/15/14 Omeprazole [Prilosec] 20 mg PO DAILY 05/15/14 Aspirin E.C. [Ecotrin] 325 mg PO DAILY@0800 12/07/17 ergocalciferol (vitamin D2) 50,000 50,000 unit PO QMONTH cap 02/19/18 unit capsule rivaroxaban 20 mg tablet 20 mg PO QDAY #30 tab 04/09/18 carvedilol 3.125 mg tablet 3.125 mg PO BID #180 tab 05/05/18 lisinopril 20 1 tab PO BID tab 12/30/18 mg-hydrochlorothiazide 12.5 mg tablet Alprazolam [Xanax] 0.5 mg PO TID 01/09/19 Atorvastatin Calcium [Lipitor] 40 mg PO QHS 01/09/19 Sertraline HCl [Zoloft] 50 mg PO DAILY 01/09/19 Surgical History: Surgical History (Last Reviewed 01/09/19 @ 09:07 by Matt Espinoza MD) History of cardioversion Z98.890 05/15/2014, 10/2018 Surgical History: - - Rotator cuff surgery bilaterally Right foot surgery Tonsillectomy Psychiatric History: Anxiety Lives: Spouse/ Significant Other Smoking Status: Former smoker Alcohol: Heavy - *Family History Maternal Family History: Family History (Last Reviewed 01/09/19 @ 09:07 by Matt Espinoza MD) Mother Cardiomyopathy Cancer CHF (congestive heart failure) Father CAD (coronary artery disease) Sister COPD (chronic obstructive pulmonary disease) Breast cancer Review of Systems Constitutional: Denies: Chills, Fever, Weight Change HEENT: Denies: Head Aches, Sinus Congestion, Sinus Drainage Cardiovascular: Reports: Palpitations. Denies: Chest Pain Respiratory: Reports: Shortness of Breath. Denies: Cough, Sputum production Gastrointestinal: Denies: Abdominal Pain, Nausea, Vomiting Genitourinary: Denies: Dysuria Musculoskeletal: Denies: Joint Pain, Joint Tenderness Skin: Denies: Rash, Wounds Neurological: Denies: Numbness, Tingling, Focal weakness Psychiatric: Denies: Anxiety, Depression, Homicidal Ideations, Suicidal Ideations Hematologic/ Lymphatic: Denies: Easy Bruising, Easy Bleeding VTE Information - Inpt Only VTE Present on Admission: No VTE Mechan Device Prophylaxis: None VTE Pharm Prophylaxis ordered?: No Reason prophylaxis not ordered:: Treatment Not Indicated - Continue Xarelto for A. fib Patient Problems: Active and Suspected Problems (Last Reviewed 12/30/18 @ 10:37 by Azul Quinteros) Atrial flutter with rapid ventricular response (Acute) - Physical Exam General: Alert, Oriented x3, Cooperative HEENT: Atraumatic, PERRLA, EOMI, Normocephalic Neck: Supple, No JVD, Negative Carotid Bruits Lungs: Clear to auscultation, Normal air movement Cardiovascular: No murmurs, Irregular Rate, Tachycardic Abdomen: Bowel Sounds Present, Soft, Non Tender Extremities: No edema, Capillary Refill Less than 3 Seconds Skin: No rashes, No breakdown Musculoskeletal: No Tenderness to Palpation of Joints or Extremities Neurological: Neuro grossly intact Psych/Mental Status: Normal Affect, Appropriate Vital Signs Temp Pulse Resp BP Pulse Ox 97.9 F 79 18 153/97 H 93 01/08/19 21:06 01/08/19 21:06 01/08/19 21:06 01/08/19 21:06 01/08/19 21:56 Oxygen Delivery Method Nasal Cannula Weight: 158.757 kg Body Mass Index (BMI) 46.1 Laboratory Tests Past 24 Hrs 01/08/19 01/08/19 01/08/19 21:42 21:42 21:42 WBC 8.4 RBC 4.93 Hgb 14.1 Hct 43.5 MCV 88.2 MCH 28.6 MCHC 32.4 RDW 13.7 RDW Differential 44.1 H Plt Count 225 MPV 8.6 Immature Gran % (Auto) 0.700 Neut % (Auto) 55.7 Lymph % (Auto) 31.8 [place] % (Auto) 7.0 Eos % (Auto) 4.4 Baso % (Auto) 0.4 Absolute Neuts (auto) 4.7 Absolute Lymphs (auto) 2.66 Total Counted Not Reportable PT 22.7 H INR 2.0 APTT 37.5 H Sodium 140 Potassium 3.5 Chloride 100 Carbon Dioxide 27.0 Anion Gap 13 BUN 15 Creatinine 0.90 Estim Creat Clear Calc 103.57 Est GFR (MDRD) Af Amer 112 Est GFR (MDRD) Non-Af 92 BUN/Creatinine Ratio 16.6 Glucose 158 H Calcium 8.6 Magnesium 1.5 L Troponin I < 0.015 TSH 6.43 H Assessment/Plan All Active Problems (Last Reviewed 12/30/18 @ 10:37 by Azul Quinteros) Atrial flutter with rapid ventricular response (Acute) The patient is a 58 year old M with a significant history of morbid obesity; hypertension; A flutter and alcoholism who presented with palpitations that started on the same day of admission and found to be in a flutter with unsuccessful cardioversion attempts at the ED. A flutter with rapid ventricular response Cardioversion x3 at emergency department was not successful. The emergency department patient was started on Cardizem bolus and drip was discontinued on the floor. While on the floor patient was noted to convert to sinus rhythm. Cardizem p.o.extended release x1 was overlapped with Cardizem drip and Cardizem drip subsequently discontinued while patient remained in sinus rhythm. Echocardiogram and TSH ordered We will continue home Xarelto. Cardiology was consulted. Magnesium was supplemented at the emergency department. Because potassium level was 3.5 potassium 40 mEq p.o. x1 was ordered. Hypertension On admission his blood pressure was not within goal. Received Cardizem bolus and drip as above. Home Coreg continued Lisinopril and hydrochlorothiazide continued Trend blood pressure and adjust blood pressure medication Hyperlipidemia Lipitor continued Alcohol abuse Patient drinks 12 beers a day. His last drink was in the afternoon of presentation. Will place patient on CIWA protocol with thiamine, multivitamin and folic acid. Ethanol level ordered. GERD Prilosec continued DVT prophylaxis: Not indicated in the setting of patient on Xarelto. Xarelto continued Code Visit Inpatient E&M: 29848 Init Hosp L3
[2019-01-09] VITALS (17 sets, daily range): BP systolic 124–156; BP diastolic 67–88; PULSE 68–92; RESP 15–25; TEMP 36.2–36.9; O2SAT 91–98; BMI 46.3
--- NOTE | 2019-01-09 | EKG12_ITS ---
Test Reason : RHY CHANGE Blood Pressure : / mmHG Vent. Rate : 079 BPM Atrial Rate : 079 BPM P-R Int : 174 ms QRS Dur : 104 ms QT Int : 400 ms P-R-T Axes : 054 -03 045 degrees QTc Int : 458 ms Normal sinus rhythm Septal infarct , age undetermined Abnormal ECG Confirmed by CAMERON SILVA, TY ([id number]), editorial specialist MICHAEL JACKSON ([id number] on 01/14/2019 11:00:18 AM Referred By: YARON Confirmed By:TY BARNES MD
--- NOTE | 2019-01-09 01:17 | ECHOCS_ITS ---
Reason For Study: AFIB Procedure This was a 2D Doppler, Color Flow transthoracic echocardiogram. The study was technically difficult. Contrast injection was performed. Exam performed portable in patient room. Left Ventricle Normal LV size. Left ventricular systolic function is normal. The estimated ejection fraction is 65 %. No evidence for diastolic dysfunction. No regional wall motion abnormalities noted. Right Ventricle Normal RV size. Normal systolic function. Atria Normal left atrium. Normal right atrium. No doppler evidence for ASD. Mitral Valve There is mild mitral annular calcification. Normal mitral valve. Trivial mitral valve insufficiency. Tricuspid Valve Normal tricuspid valve. Trivial tricuspid valve insufficiency. Unable to estimate RV systolic pressure/pulmonary artery pressure due to technically difficult study. Aortic Valve Trisinus/trileaflet aortic valve. Normal aortic valve. Pulmonic Valve The pulmonic valve is not well visualized. Great Vessels Mildly dilated aortic root. Pericardium/Pleural No pericardial effusion. Medication Diluted definity 5ml given slow IV push to enhance endocardial definition. MMode/2D Measurements & Calculations LVIDd: 5.5 cm IVSd: 1.0 cm Ao root diam: 4.2 cm LVIDs: 3.3 cm LVPWd: 1.2 cm RVDd: 3.9 cm FS: 39.3 % LAV(MOD-bp): 53.1 ml LVAd ap4: 29.0 cm2 SV(MOD-sp4): 57.9 ml LAV(MOD-bp) Indexed: 19.5 ml/m2 EDV(MOD-sp4): 88.9 ml LAV(MOD-sp2): 62.9 ml EDV(sp4-el): 91.5 ml LAV(MOD-sp4): 44.8 ml LVAs ap4: 15.2 cm2 ESV(MOD-sp4): 31.0 ml ESV(sp4-el): 32.1 ml EF(MOD-sp4): 65.1 % EF(sp4-el): 64.9 % SV(sp4-el): 59.4 ml LA A4 area: 17.4 cm2 LA dimension(2D): 4.6 cm RA A4 area: 15.7 cm2 Time Measurements MV dec time: 0.19 sec Doppler Measurements & Calculations MV E max ruddy: 86.5 cm/sec Lat Peak E' Ruddy: 11.4 cm/sec Med Peak E' Ruddy: 7.9 cm/sec MV A max ruddy: 82.4 cm/sec E/E' lat: 7.6 E/E' med: 11.0 MV E/A: 1.1 Ao V2 max: 197.5 cm/sec LV V1 max: 134.5 cm/sec PA V2 max: 120.2 cm/sec Ao max P.6 mmHg LV V1 max P.2 mmHg Interpretation Summary The study was technically difficult. Contrast injection was performed. Left ventricular systolic function is normal. The estimated ejection fraction is 65 %. There is mild mitral annular calcification. Trivial mitral valve insufficiency. Trivial tricuspid valve insufficiency. Mildly dilated aortic root. Unable to estimate RV systolic pressure/pulmonary artery pressure due to technically difficult study. No evidence for diastolic dysfunction. Ordering Physician: Matt Espinoza Referring Physician: SAMINA GOMEZ Performed By: Jenny Saravia, ANTHONY, RVT
[2019-01-09] MEDS: dilTIAZem CD 120 MG Capsule PO (02:47)
[2019-01-09 06:06] LABS: Anion Gap 8 (5-15); BUN 15 mg/dL (7-18); BUN/Creat Ratio 16.5 RATIO (10-20); Calcium,Total 8.5 mg/dL (8.5-10.1); Chloride 105 mmol/L (98-107); Creatinine, Serum 0.91 mg/dL (0.70-1.30); EST Glomerular Filtration Rate 91 mL/min (>60); Est Glom Filt Rate - Afr Amer 111 mL/min (>60); Estimated Creatinine Clearance 102.44 ml/min; Glucose 126 mg/dL (74-106); Potassium 4.3 mmol/L (3.5-5.1); Sodium Level 142 mmol/L (136-145)
[2019-01-09] MEDS: ALPRAZolam 0.5 MG Tablet PO ×2 (08:35→13:30)
[2019-01-09] MEDS: Multivitamins,Ther W-Minerals Tablet 1 TABLET PO (08:36)
[2019-01-09] MEDS: Thiamine Hydrochloride 100 MG Tablet PO (08:36)
[2019-01-09] MEDS: Aspirin E.C. 325 MG Tablet PO (08:36)
[2019-01-09] MEDS: Folic Acid 1 MG Tablet PO (08:36)
[2019-01-09] MEDS: Pantoprazole Sodium 20 MG Tablet PO (10:17)
[2019-01-09] MEDS: Allopurinol 100 MG Tablet PO (10:17)
[2019-01-09] MEDS: hydroCHLOROthiazide 12.5mg 12.5 MG PO (10:17)
[2019-01-09] MEDS: Lisinopril 20 MG Tablet PO (10:17)
[2019-01-09] MEDS: Carvedilol 6.25 MG Tablet PO (10:23)
[2019-01-09] MEDS: Sertraline 50 MG Tablet PO (10:23)
--- NOTE | 2019-01-09 15:17 | CON.PCM_ITS ---
Problem List (1) Atrial fibrillation Status: Acute Qualifiers: Atrial fibrillation type: paroxysmal Qualified Code(s): I48.0 - Paroxysmal atrial fibrillation (2) Hyperlipidemia Status: Chronic Qualifiers: Hyperlipidemia type: pure hypercholesterolemia Qualified Code(s): E78.00 - Pure hypercholesterolemia, unspecified (3) Hypertension Status: Chronic Qualifiers: Hypertension type: essential hypertension Qualified Code(s): I10 - Essential (primary) hypertension Reason for Consult Date of Consultation: 01/09/19 History of Present Illness: The patient is a 58 year old White male with a past medical history of atrial flutter who presents for evaluation of atrial fibrillation with RVR superimposed upon hyperlipidemia and hypertension. He states yesterday evening, after eating a meal, and drinking his daily 12 beers, he noted that his heart rate was going faster. He subsequently presented to the [facility] emergency department. He was found to be in atrial fibrillation with rapid ventricular response. His case was discussed with Dr. Hernández of [facility]. He subsequently underwent 2 attempts at rate control therapy with IV diltiazem and subsequently underwent attempt at synchronized biphasic DC cardioversion x3-unsuccessful. He was then recommended for further inpatient evaluation and care. He notes that after a period of time, when sitting up, he subsequently noted his heart rate and rhythm changed. He was then noted to be back in sinus rhythm. He has remained in sinus rhythm since that time. He has undergone additional evaluation with troponin I level. This was negative. His followup ECG in sinus rhythm demonstrated no acute ECG changes. He has denied other concerns of chest discomfort or difficulty breathing. There has been no orthopnea, PND, peripheral pitting edema. He has not had any near syncope or syncope. He has undergone similar type events and situations in the past. He continues to drink alcohol. He is treating drinks approximately 12 beers per day. [] Past Medical History Allergies/Adverse Reactions: Allergies No Known Allergies Allergy (Verified 01/08/19 21:08) Home Medications: Ambulatory Orders Medication Instructions Recorded Allopurinol 100 mg PO DAILY 05/15/14 Omeprazole [Prilosec] 20 mg PO DAILY 05/15/14 Aspirin E.C. [Ecotrin] 325 mg PO DAILY@0800 12/07/17 ergocalciferol (vitamin D2) 50,000 50,000 unit PO QMONTH cap 02/19/18 unit capsule rivaroxaban 20 mg tablet 20 mg PO QDAY #30 tab 04/09/18 carvedilol 3.125 mg tablet 3.125 mg PO BID #180 tab 05/05/18 lisinopril 20 1 tab PO BID tab 12/30/18 mg-hydrochlorothiazide 12.5 mg tablet Alprazolam [Xanax] 0.5 mg PO TID 01/09/19 Atorvastatin Calcium [Lipitor] 40 mg PO QHS 01/09/19 Sertraline HCl [Zoloft] 50 mg PO DAILY 01/09/19 Past Medical History (Chronic Problems): Chronic Problems (Last Reviewed 01/09/19 @ 09:06 by Matt Espinoza MD) Hypersomnolence (Chronic) Paroxysmal atrial flutter (Chronic) S/P DCCV 05/15/2014; 11/04/2018 in ER; Systolic dysfunction (Chronic) Cardiomyopathy (Chronic) Hyperlipidemia (Chronic) Palpitations (Chronic) Diabetes mellitus type 2 in obese (Chronic) Anxiety disorder (Chronic) Obesity (Chronic) Hypertension (Chronic) Surgical History: - - Rotator cuff surgery bilaterally Right foot surgery Tonsillectomy Psychiatric History: Anxiety - *Family History Maternal Family History: Family History (Last Reviewed 01/09/19 @ 09:07 by Matt Espinoza MD) Mother Cardiomyopathy Cancer CHF (congestive heart failure) Father CAD (coronary artery disease) Sister COPD (chronic obstructive pulmonary disease) Breast cancer Lives: Spouse/ Significant Other Smoking Status: Former smoker Alcohol: Heavy Review of Systems - Review of Systems General: Denies: Fever, Night Sweats, Fatigue Cardiovascular: Reports: Palpitations. Denies: Chest Discomfort, Shortness of Breath, Orthopnea, PND, Peripheral Edema, Lightheadedness, Dizziness, Near Syncope, Syncope Respiratory: Denies: Cough, Sputum Production, Hemoptysis Gastrointestinal: Denies: Hematemesis, Hematochezia, Melena Genitourinary: Denies: Dysuria, Hematuria Skin: Denies: Rash Subjectve: This is a 58-year-old white male who appears to be resting comfortably at the moment in no acute distress. Objective: Vital Signs Temp Pulse Resp BP Pulse Ox 97.8 F 68 15 134/67 H 95 01/09/19 10:10 01/09/19 15:10 01/09/19 10:10 01/09/19 10:10 01/09/19 10:10 Oxygen Flow Rate (L/min) 2 Oxygen Delivery Method Room Air Weight: 350 lb 15.614 oz Body Mass Index (BMI) 46.3 Intake and Output for Last 24 Hours 01/07/19 01/08/19 01/09/19 23:59 23:59 23:59 Intake Total 960 / 960 Balance 960 / 960 General: Awake, Alert, Oriented x 3, Cooperative, No Acute Distress, Obese HEENT: Atraumatic, Normocephalic, PERRL, EOMI, Sclera Non Icteric Oral: Moist Mucosa Neck: Supple, Good ROM, No JVD Lungs: Clear to auscultation Cardiovascular: Regular Rhythm, Normal S1, Normal S2 Abdomen: Bowel Sounds Present, Soft, Non Tender, Obese Extremities: No Cyanosis, No Clubbing, No edema Neurological: No Focal Motor or Sensory Deficit Psych/Mental Status: Appropriate 01/08/19 21:42: WBC 8.4, RBC 4.93, Hgb 14.1, Hct 43.5, MCV 88.2, MCH 28.6, MCHC 32.4, RDW 13.7, RDW Differential 44.1 H, Plt Count 225, MPV 8.6, Immature Gran % (Auto) 0.700, Neut % (Auto) 55.7, Lymph % (Auto) 31.8, [place] % (Auto) 7.0, Eos % (Auto) 4.4, Baso % (Auto) 0.4, Absolute Neuts (auto) 4.7, Total Counted Not Reportable 01/08/19 21:42: Sodium 140, Potassium 3.5, Chloride 100, Carbon Dioxide 27.0, Anion Gap 13, BUN 15, Creatinine 0.90, Est GFR (MDRD) Af Amer 112, Est GFR (MDRD) Non-Af 92, BUN/Creatinine Ratio 16.6, Glucose 158 H, Calcium 8.6, Magnesium 1.5 L, Troponin I < 0.015 01/08/19 21:42: PT 22.7 H, INR 2.0, APTT 37.5 H 01/09/19 05:30: Sodium 142, Potassium 4.3, Chloride 105, Carbon Dioxide 29.0, Anion Gap 8, BUN 15, Creatinine 0.91, Est GFR (MDRD) Af Amer 111, Est GFR (MDRD) Non-Af 91, BUN/Creatinine Ratio 16.5, Glucose 126 H, Calcium 8.5 Rhythm:Sinus rhythm EKG:Sinus rhythm; septum of indeterminate age cannot be excluded ECHO: Interpretation Summary The study was technically difficult. Contrast injection was performed. Left ventricular systolic function is normal. The estimated ejection fraction is 65 %. There is mild mitral annular calcification. Trivial mitral valve insufficiency. Trivial tricuspid valve insufficiency. Mildly dilated aortic root. Unable to estimate RV systolic pressure/pulmonary artery pressure due to technically difficult study. No evidence for diastolic dysfunction. Stress Test:05/17/2014: Pharmacologic stress nuclear imaging study: Reported as possible inferior/apical infarct cannot be excluded although diaphragmatic attenuation considered more likely with a mildly reduced LVEF of 43% CXR:Preliminary evaluation: No acute cardiopulmonary disease appreciated: please see official report Assessment/Plan 1. Recurrent/paroxysmal atrial fibrillation/flutter The patient has a history of paroxysmal atrial flutter. He presented with what appears to be paroxysmal atrial fibrillation. He underwent evaluation and care in the emergency department as noted above. At the present time he has been monitored. He has remained in sinus rhythm. His troponin level is negative. Is ECG in sinus rhythm demonstrates no acute ECG changes. He is going to continue rate control therapy. His beta adelina dose will be increased. However as he may have had some response to a calcium channel antagonist it may not be unreasonable, noting his LV systolic function appears be improved, to attempt additional medical therapy with calcium channel an tagonist such as diltiazem CD. He was on anticoagulant therapy. He does need to refrain from alcohol intake. This has been discussed with him again. He will also be referred for outpatient EP consultation for consideration of additional evaluation/therapy either medically or with consideration for possible EPS/RFA. 2. Hyperlipidemia He should continue risk factor evaluation care is deemed appropriate. 3. Hypertension He should continue medical management with adjustment of his medications as needed for his hypertension controlled. Comment: The above was discussed and reviewed with the patient and his family members present and Dr. Grissom. This note was generated using a voice recognition system and there may be incorrect words, spelling or punctuation that were not noted when reviewing the office note prior to saving.
--- NOTE | 2019-01-09 15:32 | CASEMGMT ---
RN CM Assessment Introduced role of RN CM to patient, /family at bedside. Patient is alert, oriented and able to participate in RN CM Assessment. Care providers, pharmacy, and demographics verified. Presentation: Admitted for A Flutter w/RVR. CC: Palpitations. PCP: Dr Charlene Dennison Specialists: Cardio- Dr Goldman, GI- Dr De Preferred Pharmacy: [facility] Insurance: MMO Prescription Benefit: Yes LNOK: Mamie Ferris Living Arrangements: Lives with in a bilevel house, 6 steps. Independent with ambulation and ADL's. Transportation: Patient drives, to drive on [place]. DME: [employer]. Denies others. No preference on DME supplier. HHC: Denies past, no preference on Agency. SNF: Denies past, no preference on facility. DC PLAN: Home with , no anticipated needs. MONICA Graf
--- NOTE | 2019-01-09 16:01 | DCINST_ITS ---
- Discharge Diagnoses Current Active Problems: Current Active and Chronic Problems (Last Reviewed 01/09/19 @ 09:06 by Matt Espinoza MD) Atrial flutter with rapid ventricular response (Acute) Atrial fibrillation (Acute) You will use the following diet at home:: No restrictions Your food should be the consistency of: Regular Your liquids should be the consistency of: Regular/Thin Discharge Activity: Return to Normal Activity Weight Bearing Status: Full weight bearing Allergies/Adverse Reactions: Allergies No Known Allergies Allergy (Verified 01/08/19 21:08) Medications to take at Discharge Allopurinol 100 mg PO DAILY 05/15/14 Omeprazole [Prilosec] 20 mg PO DAILY 05/15/14 Aspirin E.C. [Ecotrin] 325 mg PO DAILY@0800 12/07/17 ergocalciferol (vitamin D2) 50,000 unit capsule 50,000 unit PO QMONTH cap 02/19/18 rivaroxaban 20 mg tablet 20 mg PO QDAY #30 tab 04/09/18 lisinopril 20 mg-hydrochlorothiazide 12.5 mg tablet 1 tab PO BID tab 12/30/18 Alprazolam [Xanax] 0.5 mg PO TID 01/09/19 Atorvastatin Calcium [Lipitor] 40 mg PO QHS 01/09/19 Carvedilol [Coreg (Beta Samuel)] 6.25 mg PO BID #60 tablet 01/09/19 Diltiazem CD [Cardizem CD] 120 mg PO Q12 #60 capsule 01/09/19 Sertraline HCl [Zoloft] 50 mg PO DAILY 01/09/19 The following prescriptions were given: Diltiazem CD [Cardizem CD] 120 mg PO Q12 #60 capsule Carvedilol [Coreg (Beta Samuel)] 6.25 mg PO BID #60 tablet Primary Care Physician: Charlene Dennison MD [Primary Care Provider] - Please follow up with your Primary Care Physician in: SCHEDULED Test Results: Test results from this visit will be discussed in further detail at your follow- up appointment, if applicable. Please Follow Up With: Stiven Goldman MD When: as scheduled
--- NOTE | 2019-01-11 20:54 | PCM.DC.SUM ---
Discharge Date and Diagnosis Date of Admission: 01/08/19 Date of Discharge: 01/09/19 - Primary Discharge Diagnosis #1 paroxysmal atrial fibrillation with RVR #2 morbid obesity #3 alcohol abuse #4 hypertension #5 hyperlipidemia - Secondary Discharge Diagnosis Chronic Problems (Last Reviewed 01/09/19 @ 09:06 by Matt Espinoza MD) Hypersomnolence (Chronic) Paroxysmal atrial flutter (Chronic) S/P DCCV 05/15/2014; 11/04/2018 in ER; Systolic dysfunction (Chronic) Cardiomyopathy (Chronic) Hyperlipidemia (Chronic) Palpitations (Chronic) Diabetes mellitus type 2 in obese (Chronic) Anxiety disorder (Chronic) Obesity (Chronic) Hypertension (Chronic) Hospital Course and Treatment Operations: None Procedures: 2-D Echocardiogram Summary of Care Provided: The patient is a 58 year old M seen in the emergency room with a chief complaint of palpitations. Evaluation of the patient revealed him to be in atrial fibrillation with rapid ventricular response. Initially rate control with IV of diltiazem was controlled, however, patient requested cardioversion so he could be discharged home. This was discussed with the on-call live source operator and attempt to cardioversion was carried out. 3 attempts at cardioversion were unsuccessful, the patient was moved over to a cart for transport to the floor when he converted to normal sinus rhythm. Patient was admitted to PCU, he was seen in consultation by cardiology and underwent an echocardiogram which showed a normal ejection fraction. Patient remained in normal sinus rhythm throughout his hospitalization, his cardiac medications were adjusted by cardiology. On 01/09/19, patient was seen and examined: On examination he appeared in good health and spirits. Vital signs as documented. Skin warm and dry and without overt rashes. Neck without JVD. Lungs clear. Heart exam notable for regular rhythm, normal sounds and absence of murmurs, rubs or gallops. Abdomen unremarkable and without evidence of organomegaly, masses, or abdominal aortic enlargement, patient is morbidly obese. Extremities nonedematous. Neuro: Cranial nerves II through XII are grossly intact, no focal motor deficits were noted, sensation to light touch and pinprick intact. Psych: Patient is alert and oriented x3, he does not appear anxious or depressed On 01/09/19, patient was seen and examined and felt to be in stable condition for discharge home. Patient was cautioned not to drink any alcohol. - Physical Exam Vital Signs Temp Pulse Resp BP Pulse Ox 98.4 F 70 16 145/80 H 94 01/09/19 16:08 01/09/19 16:08 01/09/19 16:08 01/09/19 16:08 01/09/19 16:08 Oxygen Flow Rate (L/min) 2 Oxygen Delivery Method Room Air Weight: 159.2 kg Body Mass Index (BMI) 46.3 Intake and Output for Last 24 Hours 01/09/19 01/10/19 01/11/19 23:59 23:59 23:59 Intake Total 960 / 960 Balance 960 / 960 Discharge Activity: Return to Normal Activity Weight Bearing Status: Full weight bearing Home Medications: Medications to take at Discharge Allopurinol 100 mg PO DAILY 05/15/14 Omeprazole [Prilosec] 20 mg PO DAILY 05/15/14 Aspirin E.C. [Ecotrin] 325 mg PO DAILY@0800 12/07/17 ergocalciferol (vitamin D2) 50,000 unit capsule 50,000 unit PO QMONTH cap 02/19/18 rivaroxaban 20 mg tablet 20 mg PO QDAY #30 tab 04/09/18 lisinopril 20 mg-hydrochlorothiazide 12.5 mg tablet 1 tab PO BID tab 12/30/18 Alprazolam [Xanax] 0.5 mg PO TID 01/09/19 Atorvastatin Calcium [Lipitor] 40 mg PO QHS 01/09/19 Carvedilol [Coreg (Beta Samuel)] 6.25 mg PO BID #60 tablet 01/09/19 Diltiazem CD [Cardizem CD] 120 mg PO Q12 #60 capsule 01/09/19 Sertraline HCl [Zoloft] 50 mg PO DAILY 01/09/19 Following Prescrptions Were Given to Patient: Diltiazem CD [Cardizem CD] 120 mg PO Q12 #60 capsule Carvedilol [Coreg (Beta Samuel)] 6.25 mg PO BID #60 tablet Primary Care Physician: Charlene Dennison MD [Primary Care Provider] - Please follow up with your Primary Care Physician in: SCHEDULED Please Follow Up With: Stiven Goldman MD When: as scheduled Please Follow Up With: Charlene Dennison MD Disposition: Home Minutes spent on discharge:: 32 Patient Condition:: Stable Medical Necessity - Tobacco Use Smoking Status: Former smoker Meaningful Use Info Meaningful Use Diagnoses (Choose all that apply): None applicable Code Visit Inpatient E&M: 01822 Disch Hosp
--- NOTE | 2019-01-12 15:11 | CASEMGMT ---
EVON TOWNSEND DC PHONE CALL DC DATE: 01/09/19 DC DISPOSITION: Home LACE/STRATA: 09/20 Home Phone did not work.
== END 2019-01-09 16:55 | disposition home or self-care (01) | DRG 309 ==
LOC: ED 21:31 → PCU 01-09 00:48
PROVIDERS: Admitting Provider Hospitalist; Emergency Provider Emergency Medicine; Family Provider Internal Medicine; PCP Internal Medicine; Visit Provider Internal Medicine
DX: I48.0 Paroxysmal atrial fibrillation (principal); Z68.42 Body mass index [BMI] 45.0-49.9, adult; I48.92 Unspecified atrial flutter; I10 Essential (primary) hypertension; E83.42 Hypomagnesemia; E66.01 Morbid (severe) obesity due to excess calories; E78.5 Hyperlipidemia, unspecified; F10.10 Alcohol abuse, uncomplicated; K21.9 Gastro-esophageal reflux disease without esophagitis; I42.9 Cardiomyopathy, unspecified; E11.9 Type 2 diabetes mellitus without complications; F41.9 Anxiety disorder, unspecified; Z79.01 Long term (current) use of anticoagulants; Z87.891 Personal history of nicotine dependence; Z79.899 Other long term (current) drug therapy
CPT/HCPCS: 36415; 71045; 80048; 80320; 83735; 84443; 84484; 85025; 85610; 85730; 92960; 93005; 93306; 97802; 99283; 99406; J7030; Q9957; A4216; C8929; G0480

== ENCOUNTER → 2019-06-19 07:40 | Outpatient (CLI) | payer OTHER, SELFPAY ==
[2019-06-10 13:29] VITALS: BMI 44.1
--- NOTE | 2019-06-19 07:41 | CT_ITS ---
STUDY: CT ABDOMEN AND PELVIS WITH CONTRAST REASON FOR EXAM: Male, 58 years old. Left lower quadrant pain. RADIATION DOSAGE (If Supplied By Facility): CTDIvol = ( 17.08 ) mGy, DLP = ( 1359.64 ) mGycm TECHNIQUE: Transaxial images were obtained from the dome of the diaphragm to the symphysis pubis with oral contrast. 100 IV/Oral Isovue 300 was administered. Sagittal and coronal images were reconstructed. Individualized dose optimization techniques were used for this CT. COMPARISON: Comparison is made with prior study dated September 23, 2014. FINDINGS: The visualized lung bases are unremarkable. The visualized portions of the heart are within normal limits. There is decreased attenuation of the liver consistent with steatosis. Normal gallbladder and extrahepatic biliary system. Normal spleen. Normal pancreas. Normal bilateral adrenal glands. Normal right kidney. Normal left kidney. There is a left retroaortic vein. Normal visualized stomach. Normal small intestine. There are multiple colonic diverticula consistent with diverticulosis. The appendix is visualized and appears normal. There is scattered atherosclerotic calcification of the abdominal aorta, without a demonstrated aneurysm. Normal inferior vena cava. Normal retroperitoneum. Normal urinary bladder. Normal abdominal wall. Disc space narrowing and disc degeneration at the L5-S1 level. Degenerative changes seen in the lower dorsal spine. CT/Abdomen/Pelvis WITH Contrast IMPRESSION: Sigmoid diverticulosis. Fatty infiltration of the liver. Electronically Signed: Hood Thornton, at 14:57 EDT , Service support ,
[2019-06-19 08:06] LABS: CREATININE FINGERSTICK 0.8 mg/dL (0.70-1.30)
== END ==
PROVIDERS: Family Provider Internal Medicine; PCP Internal Medicine; Referring Provider Surgery; Visit Provider Surgery
DX: R10.32 Left lower quadrant pain (principal)
CPT/HCPCS: 74177; Q9967

== ENCOUNTER 2019-07-15 07:36 | Day surgery (SDC) | payer OTHER, SELFPAY ==
[2019-06-10 13:29] VITALS: BMI 44.1
--- NOTE | 2019-06-18 14:30 | HP_ITS ---
Intake Vital Signs 06/10/19 Body Mass Index (BMI) 44.1 06/10/19 Height 6 ft 1 in 06/10/19 Weight: 324 lb 06/10/19 Body Mass Index (BMI) 42.7 06/10/19 Blood Pressure 152/98 H 06/10/19 Blood Pressure Location Lt brachial 06/10/19 Blood Pressure Position Sitting 06/10/19 Respiratory Rate 18 Intake Visit Reasons: Positive Cologuard Chief Complaint: Aflutter Is patient in pain?: Yes (llq abdomen) Allergies No Known Allergies Allergy (Verified 06/10/19 13:26) Medications Allopurinol 100 mg PO DAILY 05/15/14 [History Confirmed 06/10/19] Omeprazole [Prilosec] 20 mg PO DAILY 05/15/14 [History Confirmed 06/10/19] ergocalciferol (vitamin D2) 50,000 unit capsule 50,000 unit PO QMONTH cap 02/19/18 [History Confirmed 06/10/19] Alprazolam [Xanax] 0.5 mg PO TID 01/09/19 [History Confirmed 06/10/19] Atorvastatin Calcium [Lipitor] 40 mg PO QHS 01/09/19 [History Confirmed 06/10/19] Sertraline HCl [Zoloft] 50 mg PO DAILY 01/09/19 [History Confirmed 06/10/19] aspirin 325 mg tablet 325 mg PO DAILY 02/11/19 [History Confirmed 06/10/19] carvedilol 6.25 mg tablet 6.25 mg PO BID #180 tab 02/11/19 [Rx Confirmed 06/10/19] metformin 500 mg tablet 500 mg PO BID 02/11/19 [History Confirmed 06/10/19] rivaroxaban 20 mg tablet 20 mg PO QDAY #90 tab 02/18/19 [Rx Confirmed 06/10/19] diltiazem CD 120 mg capsule,extended release 24 hr 120 mg PO QAM #1 cap 03/04/19 [Rx Confirmed 06/10/19] ascorbate calcium (vitamin C) 500 mg tablet 500 mg PO DAILY 06/10/19 [History Confirmed 06/10/19] dental suction dycxaf-mdsfqpibfdaqq-vnpz no.1-mouthwash 0.12 % kit % MISCELLANEOUS ea 06/10/19 [History] lisinopril 20 mg tablet 20 mg PO DAILY 06/10/19 [History Confirmed 06/10/19] testosterone 20.25 mg/1.25 gram (1.62 %) transdermal gel pump 2 pump TOPICAL DAILY 06/10/19 [History Confirmed 06/10/19] [facility] Medical History Atrial flutter with rapid ventricular response (Acute) Atrial fibrillation (Acute) Paroxysmal atrial flutter (Chronic) Systolic dysfunction (Chronic) Cardiomyopathy (Chronic) Palpitations (Chronic) Diabetes mellitus type 2 in obese (Chronic) Anxiety disorder (Chronic) Obesity (Chronic) Hyperlipidemia (Inactive) Hypertension (Inactive) Surgical History (Updated 06/10/19 @ 13:25 by Maria Esther Posadas) S/P arthroscopy of left shoulder (Acute) S/P tonsillectomy (Acute) Status post left foot surgery (Acute) s/p right shoulder surgery (Acute) History of cardioversion (Resolved) Family History Mother Cardiomyopathy Cancer thyroid cancer CHF (congestive heart failure) Father CAD (coronary artery disease) Sister COPD (chronic obstructive pulmonary disease) Breast cancer Social History (Updated 06/11/19 @ 08:36 by Aracelis Gilmore MD) Smoking Status: Former smoker alcohol intake: current alcohol intake frequency: 3 or more drinks per day Alcohol type: beer details: occasional substance use type: does not use HPI HPI HPI: VISHAL BAILEY, is a 58 M who presents to the office today for HPI HPI Surgical H&P: Yes HPI: VISHAL BAILEY, is a 58 M who presents to the office today for positive Cologuard test. Patient has never had a previous colonoscopy. Patient states for about the last week he is also had suprapubic and left-sided pain states that his suprapubic pain may improve once he had a bowel movement rates it a 2 to/10 patient states her is mid left-sided pain is a 6/10 and make me worse sometimes with movement as well. Patient states his bowel movements are small in caliber over the last week when he has been having this left-sided pain but he has gone multiple times a day. Does admit to occasionally being bloated. Patient does drink about a sixpack a day for last 35 years. Patient is on Prilosec for about the last 20 years per the patient denies any GERD symptoms on the medication but is never had an EGD done in the past. Patient did state that he has had an upper GI done previously. Patient is on Xarelto for A. fib along with aspirin 325 mg daily. No family history of colon cancer father did have esophageal cancer and prostate. His sister did have breast cancer with mets, mother also had lung cancer. Patient currently does not smoke however he does chew tobacco 3cans/week. ROS General General: Yes fatigue Cardio Cardiovascular: Yes heart disease, atrial fibrillation and high blood pressure; no chest pain Psych Psychiatric: Yes depression and anxiety Resp Respiratory: Yes shortness of breath Gastro Gastrointestinal: Yes abdominal pain, Yes constipation, Yes acid reflux Assessment & Plan Problems 1. Positive colorectal cancer screening using Cologuard test R19.5 2. Gastroesophageal reflux disease K21.9 3. Left sided abdominal pain R10.9 4. Change in stool habits R19.4 5. Alcohol abuse F10.10 Plan Discussed with patient would recommend getting a CT abdomen pelvis to make sure there is nothing active going on with the colon due to the left sided abdominal pain and change in caliber of the stool. Once this is complete would recommend continuing with the EGD and colonoscopy. Patient will need to hold his Xarelto for 3 days as he takes his dose at night. Okay to continue aspirin. Did also encourage patient to cut back on his alcohol with plans of quitting in the future. Patient currently has no plans to cut back or quit I have discussed the above with the patient. I have offered the patient EGD and colonoscopy for evaluation. I have explained the risks/benefits of the procedure and described the procedure. I have discussed the risks with the patient, including but not limited to: infection, bleeding, perforation of the GI tract requiring emergency surgery, inability to complete the procedure, injury to any internal organs, complications of anesthesia, etc. - the patient understands and agrees to proceed. I have answered all the patient's questions to the patient's satisfaction and the patient has no further questions. The patient has been given instructions for the colon cleansing preparation. 2 days of clears, magnesium citrate the first day and MiraLAX/Dulcolax a second Aracelis Gilmore M.D. Pager: [phone] [facility] [address] [place] [address], [facility], [address] [place] [address] Office: [phone] Orders Orders: Abdomen/Pelvis WITH Contrast 06/10/19 R10.32 Colonoscopy Today EGD Today Medications New: testosterone (AndroGel) 2 pumps topical DAILY dental suction kkwyqx-vyxgsmsbuqlsw-jbbd no.1-mouthwash 0.12% % miscellaneous lisinopril 20 mg PO DAILY ascorbate calcium (vitamin C) 500 mg PO DAILY Plan Detail Follow Up We will schedule a CT abdomen pelvis once resulted we will plan to schedule EGD and colonoscopy Coding Level of Care Code Off vis,new,level 3 Diagnoses Positive colorectal cancer screening using Cologuard test R19.5 Gastroesophageal reflux disease K21.9 Left sided abdominal pain R10.9 Change in stool habits R19.4 Alcohol abuse F10.10 06/11/19 0836 <Electronically signed by Aracelis Frye am, MD> Date _ Aracelis Gilmore MD
[2019-07-15] VITALS (7 sets, daily range): BP systolic 113–149; BP diastolic 79–88; PULSE 56–68; RESP 16; TEMP 36.7–36.8; O2SAT 93–96; BMI 43.7
--- NOTE | 2019-07-15 | IMM_PTH ---
PATIENT: VISHAL BAILEY LOC: EN U#:[id number] AGE/SX: 58/M ROOM: RE07/15/[address]: Dr. Aracelis Gilmore MD : 1960 BED: DIS: 07/15/2019 SPEC #: [id number] RECD: 07/15/19 14:32 STATUS: PAOLA RESteff #: [id number] REX: 07/15/19 00:[address]: Aracelis Gilmore DEPT: IMMUNOHISTOCHEMISTRY RECD BY: Valery Rain ENTERED: 07/15/19 14:33 SP TYPE: IMMUNO OTHR DR: Dr. Charlene Dennison MD Tissues: Gastric mucous membrane Procedures: H Pylori (initial) PHYSICIAN & [place] [address] SPECIMEN INFORMATION: Tissue Source: B. Antrum biopsy Clinical Info: Left sided abdominal pain, positive cologuard Specimen Number: [id number] CPT code: 59819 METHODOLOGY: Deparaffinized sections of prefer/formalin-fixed tissue or PAP/DQ stained slides are incubated with monoclonal/polyclonal antibodies/oligonucleotide probes. Localization is made via biotin free immunoperoxidase method. Appropriate controls are performed and reacted as expected. Results on target cell population are indicated in the following table: RESULTS: ANTIBODY / CLONE RESULT Block B H Pylori (polyclonal) negative These tests were developed and their performance characteristics determined by [facility]. They may not have been cleared or approved by the U.S. Food and Drug Administration. The FDA has determined that such clearance or approval is not necessary. INTERPRETATION: Antrum, biopsy: Negative for Helicobacter pylori organisms. ALAYNA:barrera 07/16/19
--- NOTE | 2019-07-15 07:47 | PCM.HP.STD ---
History of Present Illness Date of Admission: 07/15/19 The patient is a 58 year old M presents for diagnostic colonoscopy for positive Cologuard test. Patient has never had a previous colonoscopy. Patient states that his previous left-sided abdominal pain has resolved after taking the magnesium citrate. Patient's CT abdomen pelvis did not show any signs of diverticulitis. Patient does drink about a 6-12 pack a day for last 35 years. Patient is on Prilosec for about the last 20 years per the patient denies any GERD symptoms on the medication but is never had an EGD done in the past. Patient is on Xarelto for A. fib along with aspirin 325 mg daily. No family history of colon cancer father did have esophageal cancer and prostate. His sister did have breast cancer with mets, mother also had lung cancer. Patient currently does not smoke however he does chew tobacco 3cans/week. Past Medical History Past Medical History (Chronic Problems): Chronic Problems (Last Reviewed 06/10/19 @ 13:24 by Maria Esther Posadas) Hypersomnolence (Chronic) Paroxysmal atrial flutter (Chronic) S/P DCCV 05/15/2014; 11/04/2018 in ER; Systolic dysfunction (Chronic) Cardiomyopathy (Chronic) Palpitations (Chronic) Diabetes mellitus type 2 in obese (Chronic) Anxiety disorder (Chronic) Obesity (Chronic) Medical History: Medical History (Last Reviewed 06/10/19 @ 13:24 by Maria Esther Posadas) Atrial flutter with rapid ventricular response (Acute) I48.92 Atrial fibrillation (Acute) I48.91 Paroxysmal atrial flutter (Chronic) I48.92 [facility]; Systolic dysfunction (Chronic) I51.9 Cardiomyopathy (Chronic) I42.9 Palpitations (Chronic) R00.2 Diabetes mellitus type 2 in obese (Chronic) E11.9, E66.9 Anxiety disorder (Chronic) F41.9 Obesity (Chronic) E66.9 Hyperlipidemia (Inactive) E78.5 Hypertension (Inactive) I10 Allergies No Known Allergies Allergy (Verified 07/13/19 13:45) Home Medications: Ambulatory Orders Medication Instructions Recorded Allopurinol 100 mg PO DAILY 05/15/14 Omeprazole [Prilosec] 20 mg PO DAILY 05/15/14 ergocalciferol (vitamin D2) 50,000 50,000 unit PO QMONTH cap 02/19/18 unit capsule Alprazolam [Xanax] 0.5 mg PO TID 01/09/19 Atorvastatin Calcium [Lipitor] 40 mg PO QHS 01/09/19 Sertraline HCl [Zoloft] 50 mg PO DAILY 01/09/19 aspirin 325 mg tablet 325 mg PO DAILY 02/11/19 carvedilol 6.25 mg tablet 6.25 mg PO BID #180 tab 02/11/19 metformin 500 mg tablet 500 mg PO BID 02/11/19 rivaroxaban 20 mg tablet 20 mg PO QDAY #90 tab 02/18/19 ascorbate calcium (vitamin C) 500 500 mg PO DAILY 06/10/19 mg tablet dental suction % MISCELLANEOUS ea 06/10/19 muuvlc-obqvnbymtrmqh-zrxy no.1-mouthwash 0.12 % kit lisinopril 20 mg tablet 20 mg PO UD 06/10/19 testosterone 20.25 mg/1.25 gram 2 pump TOPICAL DAILY 06/10/19 (1.62 %) transdermal gel pump Diltiazem CD [Cardizem CD] 120 mg PO QHS 07/13/19 Lisinopril/Hydrochlorothiazide 1 ea PO UD 07/13/19 [Lisinopril-Hctz 20-12.5 mg Tab] Surgical History: Surgical History (Last Updated 06/10/19 @ 13:25 by Maria Esther Posadas) S/P arthroscopy of left shoulder Z98.890 S/P tonsillectomy Z90.89 Status post left foot surgery Z98.890 s/p right shoulder surgery History of cardioversion Z98.890 05/15/2014, 10/2018 Surgical History: - - Rotator cuff surgery bilaterally Right foot surgery Tonsillectomy Psychiatric History: Anxiety Smoking Status: Former smoker Tobacco Use: Chew Review of Systems Cardiovascular: Denies: Chest Pain Respiratory: Denies: Cough, Shortness of Breath VTE Information - Inpt Only VTE Present on Admission: Yes VTE Mechan Device Prophylaxis: SCD's - Physical Exam General: Alert, Oriented x3, Cooperative, No apparent distress HEENT: Atraumatic Lungs: Normal air movement Cardiovascular: Regular rate Abdomen: Soft, Non Tender, Non-Distended, Obese Extremities: No clubbing, No cyanosis, No edema Neurological: Cranial nerves II-XII grossly intact Psych/Mental Status: Normal Affect Body Mass Index (BMI) 44.1 Assessment/Plan All Active Problems (Last Reviewed 06/10/19 @ 13:24 by Maria Esther Posadas) Pure hypercholesterolemia (Acute) Essential hypertension (Acute) Atrial flutter with rapid ventricular response (Acute) Atrial fibrillation (Acute) 58-year-old male for diagnostic colonoscopy due to positive Cologuard, EGD for GERD I have discussed the above with the patient. I have offered the patient EGD and colonoscopy for evaluation. I have explained the risks/benefits of the procedure and described the procedure. I have discussed the risks with the patient, including but not limited to: infection, bleeding, perforation of the GI tract requiring emergency surgery, inability to complete the procedure, injury to any internal organs, complications of anesthesia, etc. - the patient understands and agrees to proceed. I have answered all the patient's questions to the patient's satisfaction and the patient has no further questions. Aracelis Gilmore M.D. Pager: [phone] [facility] [address] [place] [address], [address] [place] [address] Office: [phone]
[2019-07-15] MEDS: Lactated Ringers 1,000 ML 100 ML IV (08:23)
[2019-07-15 08:31] LABS: Bedside Glucose 137 mg/dL (70-110)
--- NOTE | 2019-07-15 08:45 | EGD_PTH ---
PATIENT: VISHAL BAILEY LOC: EN U#:[id number] AGE/SX: 58/M ROOM: RE07/15/[address]: Dr. Aracelis Gilmore MD : 1960 BED: DIS: 07/15/2019 SPEC #: [id number] RECD: 07/15/19 11:19 STATUS: PAOLA NAVNEET #: [id number] REX: 07/15/19 08:[address]: Aracelis Gilmore DEPT: SURGICAL PATHOLOGY RECD BY: Valery Rain ENTERED: 07/15/19 14:08 SP TYPE: EGD [facility]OPSY [facility] DR: Dr. Charlene Dennison MD Tissues: A - POLYP B - Gastric mucous membrane C - Gastric mucous membrane D - Gastric mucous membrane E - BOWEL BIOPSY F - Ascending colon Procedures: Surgery Specimen Level IV HEADER OPERATION: Colonoscopy, EGD ([facility] [place]) PRE-OP DIAGNOSIS: Left sided abdominal pain, positive cologuard TISSUE SUBMITTED: A. Pylorus polyp, B. Antrum biopsy, C. Gastric polyp, D. GE junction biopsy, E. Small bowel biopsy, F. Ascending colon MICROSCOPIC DIAGNOSIS A. Pylorus polyp, biopsy: Consistent with hyperplastic/inflammatory polyp. Additional fragments of gastric mucosa with mild chronic inflammation. B. Antrum biopsy: Mild to moderate gastritis. Minute lymphoid aggregates, favor benign. See microscopic description and comment. C. Gastric polyp, biopsy: Consistent with mixed hyperplastic/inflammatory and fundic gland polyp. Focal fibrinous exudate consistent with ulceration. D. GE junction, biopsy: A fragment of gastric mucosa with chronic inflammation. Intestinal metaplasia (goblet cell metaplasia) not identified. See comment. E. Small bowel, biopsy: A fragment of small intestinal mucosa, no pathologic diagnosis. F. Ascending colon polyp, biopsy: Consistent with fragments of inflammatory polyp. ALAYNA:bella 07/16/19 COMMENT B. The results of immunohistochemistry for Helicobacter pylori will be reported separately ([id number]). D. Alcian blue/PAS stain with matched control is used in the evaluation of the specimen. MICROSCOPIC DESCRIPTION Slides are reviewed. The specimen shows fragments of gastric mucosa with chronic inflammatory cell infiltrates in the lamina propria consisting of lymphocytes and plasma cells, consistent with mild to moderate chronic gastritis A few minute lymphoid aggregates are also noted, favor benign. GROSS DESCRIPTION A. Received is one container labeled with the patient name and designated pylorus polyp. The specimen consists of multiple irregular fragments of light braxton soft tissue that in aggregate measure 0.8 x 0.3 x 0.2 cm. The specimen is totally submitted in one cassette. B. Received is one container labeled with the patient name and designated antral biopsy for H. pylori and pathology. The specimen consists of one irregular fragment of light braxton soft tissue that measures 0.5 x 0.2 x 01 cm. The specimen is totally submitted in one cassette. C. Received in fixative is one container labeled with the patient's name and designated gastric polyp. The specimen consists of a braxton-pink polyp measuring 0.5 x 0.5 x 0.1 cm. Also present in the container are a few smaller fragments of braxton soft tissue measuring in aggregate 0.2 x 0.1 x 0.1 cm. The entire specimen is submitted in one cassette. D. Received is one container labeled with the patient name and designated GE junction biopsy. The specimen consists of one irregular fragment of light braxton soft tissue that measures 0.3 x 0.3 x 0.1 cm. The specimen is totally submitted in one cassette. E. Received is one container labeled with the patient name and designated small bowel biopsy. The specimen consists of one irregular fragment of light braxton soft tissue that measures 0.3 x 0.3 x 0.1 cm. The specimen is totally submitted in one cassette. F. Received is one container labeled with the patient name and designated ascending colon polyp. The specimen consists of multiple irregular fragments of light braxton soft tissue that in aggregate measure 0.5 x 0.4 x 0.1 cm. The specimen is totally submitted in one cassette. / ALAYNA:bella 07/15/19 TC: 5 CPT: 54430 x6, 54315
--- NOTE | 2019-07-15 09:21 | OP.ENDO_ITS ---
07/15/2019 Charlene Dennison Re : Upper GI endoscopy procedure for Fran Villatoror Juma This procedure was performed on Monday, July 15, 2019. My impressions and recommendations are as follows: Impressions : - Z-line irregular, 45 cm from the incisors. Biopsied. - Erythematous mucosa in the antrum. Biopsied. - A single gastric polyp. Resected and retrieved. - A few gastric polyps. Resected and retrieved. - Normal examined duodenum. - No gross lesions in the duodenal bulb, in the first portion of the duodenum and in the second portion of the duodenum. Recommendations : - Await pathology results. - Discharge patient to home. - Resume previous diet. - Resume Xarelto (rivaroxaban) at prior dose today. - Await pathology results. - Use sucralfate tablets 1 gram PO QID for 2 weeks. - Check hemogram with white blood cell count and platelets today. My findings are described in the full procedure note, which is enclosed. If I can be of further assistance, please feel free to contact me at Doctor phone number(s): , Work: . Sincerely, MD Aracelis Mckeon MD 07/15/2019 9:21:04 AM This report has been signed electronically.
--- NOTE | 2019-07-15 09:30 | OP.ENDO_ITS ---
07/15/2019 Charlene Dennison Re : Colonoscopy procedure for Fran Yates Juma This procedure was performed on Monday, July 15, 2019. My impressions and recommendations are as follows: Impressions : - Hemorrhoids found on perianal exam. - One less than 5 mm polyp in the ascending colon, removed with a hot snare. Resected and retrieved. - Diverticulosis in the sigmoid colon. - Blood in the terminal ileum. - Non-bleeding internal hemorrhoids. - The examination was otherwise normal. - Biopsies were taken with a cold forceps for histology in the terminal ileum. Recommendations : - Discharge patient to home. - High fiber diet. - To visualize the small bowel, perform video capsule endoscopy at appointment to be scheduled--due to black blood seen in terminal ileum, no ulcers or sources of bleeding seen on EGD. - Refer to a message broker developer at appointment to be scheduled --due to black blood seen in terminal ileum, no ulcers or sources of bleeding seen on EGD. - Repeat colonoscopy is recommended for surveillance. The colonoscopy date will be determined after pathology results from today's exam become available for review. - Resume Xarelto (rivaroxaban) at prior dose. My findings are described in the full procedure note, which is enclosed. If I can be of further assistance, please feel free to contact me at Doctor phone number(s): , Work: . Sincerely, MD Aracelis Mckeon MD 07/15/2019 9:29:59 AM This report has been signed electronically.
[2019-07-15 09:58] LABS: Absolute Lymphocyte Count 1.02 X10^3/uL (0.83-4.51); Absolute Neutrophil Count 7.3 X10^3/uL (2.0-7.7); Basophil# 0.04 X10^3/uL; Basophil% 0.4 % (0-1); Eosinophil# 0.34 X10^3/uL; Eosinophils% 3.6 % (0-5); Hematocrit 44.1 % (40-54); Lymphocyte # 1.02 X10^3/ul (4.0); Lymphocyte % 10.8 % (19-41); Mean Corp Hgb Conc 31.7 g/dL (32-36); Mean Corpuscular Hgb 28.4 pg (27.0-32.0); Mean Corpuscular Volume 89.5 fL (80-94); Mean Platelet Vol. 8.6 fl (6.2-12.0); Monocyte% 7.4 % (0-10); NRBC Flagged by Analyzer 0 % (0-5); Neutrophil # 7.29 X10^3/uL (2.7-7.7); Neutrophil % 77.1 % (47-70); Platelet Count 208 K/mm3 (150-450); RBC Distribution Width CV 14.7 % (11.6-14.6); RBC Distribution Width SD 48.5 fl (35.1-43.9); Red Blood Count 4.93 M/mm3 (4.6-6.2); White Blood Count 9.5 K/mm3 (4.4-11.0)
== END 2019-07-15 10:28 | disposition home or self-care (01) ==
LOC: EN 07:38 → AC 07:39
PROVIDERS: Family Provider Internal Medicine; PCP Internal Medicine; Referring Provider Internal Medicine; Visit Provider Surgery
PROC: 0DJD8ZZ Inspection of Lower Intestinal Tract, Via Natural or Artificial Opening Endoscopic (ICD-10-PCS; CPT 45378; principal; 2019-07-15 08:40)
DX: D12.2 Benign neoplasm of ascending colon (principal); K31.7 Polyp of stomach and duodenum; K57.30 Diverticulosis of large intestine without perforation or abscess without bleeding; K64.0 First degree hemorrhoids; K21.9 Gastro-esophageal reflux disease without esophagitis; I48.91 Unspecified atrial fibrillation; I48.92 Unspecified atrial flutter; I42.9 Cardiomyopathy, unspecified; E11.9 Type 2 diabetes mellitus without complications; I10 Essential (primary) hypertension; E78.00 Pure hypercholesterolemia, unspecified; F32.9 Major depressive disorder, single episode, unspecified; F41.9 Anxiety disorder, unspecified; E66.9 Obesity, unspecified; F17.220 Nicotine dependence, chewing tobacco, uncomplicated; Z79.82 Long term (current) use of aspirin; Z79.01 Long term (current) use of anticoagulants; Z79.84 Long term (current) use of oral hypoglycemic drugs; Z79.899 Other long term (current) drug therapy
CPT/HCPCS: 43239; 43251; 45380; 45385; 36415; 82962; 85025; 88305; 88342; J7120; J2405

== ENCOUNTER 2019-10-14 18:31 | Emergency (ER) | payer OTHER, SELFPAY ==
[2019-07-15 08:01] VITALS: BMI 43.7
[2019-10-14] VITALS (12 sets, daily range): BP systolic 96–134; BP diastolic 60–108; PULSE 76–121; RESP 14–20; TEMP 36.9; O2SAT 92–99; BMI 46.2
--- NOTE | 2019-10-14 18:33 | ED.RN ---
CALLED FOR EKG PER RN REQUEST, PULLED OLD EKGS FOR
--- NOTE | 2019-10-14 18:58 | EKG12_ITS ---
Test Reason : POST CARDIOVERSION Blood Pressure : / mmHG Vent. Rate : 078 BPM Atrial Rate : 078 BPM P-R Int : 166 ms QRS Dur : 112 ms QT Int : 404 ms P-R-T Axes : 042 003 031 degrees QTc Int : 460 ms Normal sinus rhythm Septal infarct , age undetermined Abnormal ECG Confirmed by MUNA SILVA, ROMEL ([id number]), marketing editor MATTI DOBSON ([id number]) on 10/16/2019 11:03:32 AM Referred By: REGULO Confirmed By:ROMEL TORO MD
--- NOTE | 2019-10-14 19:00 | RAD_ITS ---
STUDY: X-RAY CHEST REASON FOR EXAM: Male, 58 years old. Palpitations TECHNIQUE: Frontal views COMPARISON: January 08, 2019 FINDINGS: The lungs are clear and expanded. There is no demonstrated pleural abnormality. Normal size heart. Normal mediastinum and nicol. Normal visualized pulmonary arteries. Normal visualized aortic arch and descending thoracic aorta. Mild degenerative changes of the thoracic spine. Normal visualized ribs, clavicles, and shoulders. There is no demonstrated abnormality of the visualized soft tissue structures of the upper abdomen. RAD/Chest 1 View (Portable) IMPRESSION: Normal x-ray examination of the chest. Electronically Signed: Vimal Carbajal DO at 19:23 EST Tel [phone], Service support ,
[2019-10-14] MEDS: dilTIAZem 25 MG/5 ML Vial IV BOLUS (19:07)
[2019-10-14] MEDS: 0.9% Normal Saline 1,000 ML 1000 ML IV (19:09)
[2019-10-14 19:46] LABS: Absolute Neutrophil Count 7.5 X10^3/uL (2.0-7.7); Basophil# 0.05 X10^3/uL; Basophil% 0.4 % (0-1); Eosinophil# 0.44 X10^3/uL; Eosinophils% 3.9 % (0-5); Hematocrit 49.3 % (40-54); Lymphocyte % 19.7 % (19-41); Mean Corp Hgb Conc 32.5 g/dL (32-36); Mean Corpuscular Hgb 27.6 pg (27.0-32.0); Mean Platelet Vol. 9.3 fl (6.2-12.0); Monocyte# 0.91 X10^3/uL; Monocyte% 8.1 % (0-10); NRBC Flagged by Analyzer 0 % (0-5); Neutrophil # 7.54 X10^3/uL (2.7-7.7); Neutrophil % 67.5 % (47-70); Platelet Count 331 K/mm3 (150-450); RBC Distribution Width SD 40.3 fl (35.1-43.9); White Blood Count 11.2 K/mm3 (4.4-11.0)
[2019-10-14 19:49] LABS: International Normalized Ratio 2.2; Prothrombin Time (Protime)PT. 24.4 SECONDS (11.7-14.9)
[2019-10-14 19:50] LABS: Partial Thromboplast Time 39.2 Seconds (24.1-36.2)
[2019-10-14 19:57] LABS: ALB/GLOB Ratio 0.8 RATIO (0.9-2.4); AST(SGOT) 14 U/L (15-37); Alanine Aminotransfer ALT/SGPT 23 U/L (16-61); Albumin, Serum 3.4 g/dL (3.2-5.0); Alkaline Phosphatase 115 U/L (45-117); Anion Gap 12 (5-15); BUN 13 mg/dL (7-18); BUN/Creat Ratio 15.8 RATIO (10-20); Calcium,Total 9.2 mg/dL (8.5-10.1); Chloride 104 mmol/L (98-107); Creatinine, Serum 0.82 mg/dL (0.70-1.30); EST Glomerular Filtration Rate 102 mL/min (>60); Est Glom Filt Rate - Afr Amer 124 mL/min (>60); Estimated Creatinine Clearance 110.41 ml/min; Glucose 152 mg/dL (74-106); Lipase 249 U/L (73-393); Potassium 3.8 mmol/L (3.5-5.1); Protein, Total 7.4 g/dL (6.4-8.2); Sodium Level 140 mmol/L (136-145)
[2019-10-14] MEDS: Propofol 200 MG/20 ML Vial IV BOLUS (21:23)
--- NOTE | 2019-10-14 21:26 | EKG12_ITS ---
Test Reason : CP Blood Pressure : / mmHG Vent. Rate : 125 BPM Atrial Rate : 127 BPM P-R Int : 000 ms QRS Dur : 140 ms QT Int : 316 ms P-R-T Axes : 000 010 -40 degrees QTc Int : 456 ms Atrial fibrillation with rapid ventricular response Left bundle branch block Abnormal ECG Confirmed by MUNA ISLVA, ROMEL ([id number]), editor at large AMTTI DOBSON ([id number] on 10/16/2019 11:03:48 AM Referred By: KATHARINA Confirmed By:ROMEL TORO MD
--- NOTE | 2019-10-14 22:07 | ED.VISSUMM ---
- ER Visit Summary Date of Service: 10/14/19 Chief Complaint: Palpitations History of Present Illness: The patient is a 58 M who presents with palpitations that have been constant for the past 3 to 4 hours. Patient states he has a history of paroxysmal atrial fibrillation and felt himself go into atrial fibrillation tonight. Patient states it feels like he is fluttering in his chest. Patient admits to some nausea but denies any vomiting. Patient admits to some mild diaphoresis and shortness of breath. Patient also admits to some lightheadedness. Patient denies any cough or fever. Patient does admit to drinking alcohol tonight. Patient states he had approximately 6 beers. Physical Examination: Vital signs are stable except for tachycardia of 121. Patient is afebrile. Patient is in no acute distress. Oral mucosa is pink and moist. Neck is supple. Trachea is midline. There is no JVD noted. Heart was regular rate and rhythm. Lungs are clear and equal bilaterally. Abdomen is soft and nontender. Cranial nerves II through XII are intact. There are no focal motor or sensory deficits noted. Test Results: EKG showed atrial fibrillation with a rate of 125. There is a left bundle branch block pattern noted. There are no acute ST or T wave changes. CBC showed a mild leukocytosis of 11.2. Comprehensive metabolic profile was essentially within normal limits. Patient has an INR of 2.2 and a PTT of 39.2. Troponin was less than 0.015. Portable chest x-ray was obtained and was within normal limits. This was interpreted by the radiologist and myself. Emergency Department Course and Treatment: Patient was given IV fluids and Cardizem here. Patient's heart rate improved however he was still in atrial fibrillation. Patient still felt a fluttering. Patient states he has been cardioverted before. I discussed the procedure with the patient including the risks and benefits. Patient understands and is agreeable to having cardioversion performed. Patient states he has been sedated with propofol in the past and does well with that. Patient was given a total of 130 mg of propofol. Patient was sedated. Patient was cardioverted with 150 J of synchronized cardioversion. Patient converted to a normal sinus rhythm. Repeat EKG showed a normal sinus rhythm with a rate of 78. There is a prior septal infarct. There are no acute ST or T wave changes. This was unchanged compared to EKG from 01/09/2019. Patient felt better and wants to go home. Patient was discharged. Patient was instructed to stop drinking alcohol. Patient was instructed to follow-up with his community music therapist in 5 to 7 days. Patient understood and was agreeable with the plan. All questions were answered. Disposition: Discharge home Impression: Paroxysmal atrial fibrillation This note was generated with [employer] dictation software. It may contain incorrect words, spelling, and punctuation that were not noted in review of the chart prior to signing ED Disposition - Plan for ED Patient: Disposition: Home or Assisted Living Diagnosis: Paroxysmal atrial fibrillation Instructions: Atrial Fibrillation Referrals: Charlene Dennison MD [Primary Care Provider] - 3-5 Days
== END 2019-10-14 22:39 | disposition home or self-care (01) ==
PROVIDERS: Emergency Provider Emergency Medicine; Family Provider Internal Medicine; PCP Internal Medicine
DX: I48.0 Paroxysmal atrial fibrillation (principal); I44.7 Left bundle-branch block, unspecified; E11.9 Type 2 diabetes mellitus without complications; I10 Essential (primary) hypertension; K21.9 Gastro-esophageal reflux disease without esophagitis; F17.220 Nicotine dependence, chewing tobacco, uncomplicated; Z79.01 Long term (current) use of anticoagulants; Z79.899 Other long term (current) drug therapy
CPT/HCPCS: 71045; 80053; 80320; 83690; 84484; 85025; 85610; 85730; 93005; 96361; 96374; 96375; 99284; J7030; A4216; G0480

== ENCOUNTER 2021-05-14 14:47 | Emergency (ER) | payer MEDICARE, OTHER, SELFPAY ==
[2021-05-14 14:47] VITALS: BP 163/95; PULSE 124; RESP 20; TEMP 36.1; O2SAT 94; BMI 46.2; BMI 48.8
--- NOTE | 2021-05-14 15:10 | RAD_ITS ---
STUDY: X-RAY CHEST REASON FOR EXAM: Male, 60 years old. sob TECHNIQUE: 1 view COMPARISON: 10/14/2019 FINDINGS: The cardiac silhouette is top normal. Costophrenic angles are sharp. Lungs are clear. The trachea is midline. There is no pneumothorax. The bones are grossly intact. RAD/Chest 1 View (Portable) IMPRESSION: No acute cardiopulmonary process. Electronically Signed: Justino Brady MD at 15:52 EDT Tel , Service support ,
--- NOTE | 2021-05-14 15:10 | EKG12_ITS ---
Test Reason : CP Blood Pressure : / mmHG Vent. Rate : 117 BPM Atrial Rate : 111 BPM P-R Int : 000 ms QRS Dur : 154 ms QT Int : 366 ms P-R-T Axes : 000 -15 030 degrees QTc Int : 510 ms Sinus tachycardia Left bundle branch block Abnormal ECG Confirmed by ROMEL TORO MD ([id number]), index editor JIGAR ANGELO ([id number]) on 05/16/2021 9:08:29 AM Referred By: Confirmed By:ROMEL TORO MD
--- NOTE | 2021-05-14 15:12 | EDS_ITS ---
HPI History of Present Illness Chief Complaint: Palpitations Informant: patient Onset/Context/Timing Onset: Today Timing: Intermittent (Constant since noon) Current Severity: Mild Maximum Severity: Moderate Narrative Narrative: Patient presents secondary to palpitations with A. fib. Patient has a history of paroxysmal A. fib. He states his last bout with A. fib was approximate 19 months ago. Today he is been in and out of A. fib and reports constant palpitations since noon today. He took an extra dose of Cardizem earlier this afternoon without improvement. He reports mild shortness of breath and chest pressure. [facility] Medical History Anxiety disorder Atrial fibrillation Atrial flutter with rapid ventricular response Cardiomyopathy Diabetes mellitus type 2 in obese Hyperlipidemia Hypertension Obesity Palpitations Paroxysmal atrial flutter Systolic dysfunction Home Medications allopurinol 100 mg PO DAILY 05/15/14 [History Last Taken Unknown] omeprazole 20 mg PO DAILY 05/15/14 [History Last Taken 07/15/19] alprazolam 0.5 mg PO TID 01/09/19 [History Last Taken 07/15/19] atorvastatin 40 mg PO QHS 01/09/19 [History Last Taken Unknown] sertraline 50 mg PO DAILY 01/09/19 [History Last Taken Unknown] carvedilol 6.25 mg tablet 6.25 mg PO BID #180 tab 02/11/19 [Rx Last Taken 07/15/19] lisinopril-hydrochlorothiazide 1 ea PO UD 07/13/19 [History Last Taken Unknown] diltiazem HCl 120 mg capsule,extended release 24 hr 120 mg PO QHS #90 cap 02/17/20 [Rx Last Taken Unknown] rivaroxaban 20 mg tablet 20 mg PO QDAY #90 tab 02/17/20 [Rx Last Taken Unknown] ergocalciferol (vitamin D2) 50,000 unit PO QMONTH 05/14/21 [History Last Taken Unknown] metformin 500 mg PO BID 05/14/21 [History Last Taken Unknown] Allergy/AdvReac Type Severity Reaction Status Date / Time No Known Allergies Allergy Verified 05/14/21 14:49 Family History Mother Cardiomyopathy Cancer thyroid cancer CHF (congestive heart failure) Father CAD (coronary artery disease) Sister COPD (chronic obstructive pulmonary disease) Breast cancer Surgical History History of cardioversion S/P arthroscopy of left shoulder s/p right shoulder surgery S/P tonsillectomy Status post left foot surgery Social History Smoking Status: Former smoker alcohol intake: current alcohol intake frequency: 3 or more drinks per day Alcohol type: beer details: occasional substance use type: does not use ROS ROS ED Constitutional Constitutional ED: Denies chills or fever(s) Eyes Eyes: Denies change in vision ENT ENT ED: Denies sore throat Cardiovascular Cardiovascular: Reports chest pain and palpitations Respiratory/Chest Respiratory/Chest: Reports dyspnea; Denies cough Gastrointestinal Gastrointestinal: Denies abdominal pain, diarrhea, nausea or vomiting Genitourinary Genitourinary ED: Denies dysuria Musculoskeletal Musculoskeletal: Denies back pain Integumentary Denies rash Neurologic Neurologic: Denies headache(s) or weakness Psychiatric Psychiatric: Denies anxiety or depression Endocrine Endocrinology: Denies polydipsia or polyuria Allergic/Immunologic Allergic/Immunologic ED: Denies urticaria EXAM Physical Exam Const Vital Signs: 05/14/21 14:47 05/14/21 14:54 Temperature 97.0 F L Temperature Source Temporal Pulse Rate 124 H Respiratory Rate 20 H Respiratory Effort Normal Non-Labored Blood Pressure 163/95 H Blood Pressure Mean 117 Pulse Ox 94 Oxygen Delivery Method Room Air Positive well nourished and well developed General Appearance ED: well developed HEENT Reports normocephalic and head/scalp atraumatic Eyes PERRL and EOMs intact bilaterally Neck supple Chest Wall inspection of chest normal and palpation of chest normal Resp normal respiratory effort and clear to auscultation bilaterally Cardio Rate: tachycardic Rhythm: abnormal rhythm irregularly irregular GI normal to inspection, nondistended, normoactive bowel sounds Palpation: soft Extremity normal to inspection Neuro oriented x3 and no sensory deficits noted Sensorium / Orientation: alert Motor Exam: strength 5/5 throughout Psych mental status grossly normal Skin no rashes or lesions noted MDM MDM MDM Narrative Medical decision making narrative: Patient was given 10 mg of IV Cardizem as he had taken an extra dose of his p.o. slow release Cardizem about an hour and a half prior to arrival. Labs, EKG, chest x-ray ordered. Lab Data Attestation: I reviewed the patient's lab results. Labs: Laboratory Results - last 24 hr 05/14/21 05/14/21 14:55 14:55 WBC 12.2 H RBC 5.62 Hgb 16.0 Hct 49.8 MCV 88.6 MCH 28.5 MCHC 32.1 RDW Std Deviation 45.3 H RDW Coeff of Lon 14.1 Plt Count 323 MPV 9.1 Immature Gran % (Auto) 1.000 H Neut % (Auto) 75.2 H Lymph % (Auto) 11.0 L [place] % (Auto) 10.1 H Eos % (Auto) 2.1 Baso % (Auto) 0.6 Absolute Neuts (auto) 9.2 H Absolute Lymphs (auto) 1.35 Nucleated RBC % 0 Sodium 139 Potassium 4.9 Chloride 103 Carbon Dioxide 29.0 Anion Gap 7 BUN 12 Creatinine 0.98 Estim Creat Clear Calc 90.18 Est GFR (MDRD) Af Amer 100 Est GFR (MDRD) Non-Af 83 BUN/Creatinine Ratio 12.2 Glucose 181 H Calcium 9.7 Magnesium 1.6 Troponin I High Sens 7.8 Radiography Chest X-Ray - ED: 1 View, Read by ED Physician, Normal, Heart, Lungs and Med iastinum Diagnostic Testing: Radiology Impression Chest X-Ray 05/14/21 15:10 IMPRESSION: No acute cardiopulmonary process. Electronically Signed: Justino Brady MD at 15:52 EDT Tel , Service support , EKG Initial EKG: Attestation: I personally reviewed and interpreted this EKG as follows: Interpretation: Atrial Fibrillation (A. fib RVR at 117. Left bundle branch block pattern noted.) Treatment and Re-Evaluation Comments:: Previous EKG reveals sinus rhythm with a narrow QRS complex. When I review note from his prior visits when he is in A. fib or a flutter he does have a wide complex with a left bundle branch block pattern. This is not new today. On repeat evaluation patient has converted back to a sinus rhythm. He states he converted approximate 45 minutes prior to my reeval. He feels well and wishes to go home. He is to follow-up with Dr. Goldman. Discharge Plan Triage Chief Complaint: Palpitations ED Provider: Celia Khanna Dx/Rx/DC Orders Clinical Impression: Atrial fibrillation with rapid ventricular response Instructions: ED AFIB Prescriptions: No Action carvedilol 6.25 mg tablet 6.25 mg PO BID Qty: 180 RF: 3 allopurinol 100 MG tablet 100 mg PO DAILY RF: 0 omeprazole 20 MG capsule 20 mg PO DAILY RF: 0 atorvastatin 40 MG tablet 40 mg PO QHS RF: 0 alprazolam 0.5 MG tablet 0.5 mg PO TID RF: 0 sertraline 50 MG tablet 50 mg PO DAILY RF: 0 lisinopril-hydrochlorothiazide 1 EACH tablet 1 ea PO UD RF: 0 metformin 500 mg Tablet 500 mg PO BID RF: 0 ergocalciferol (vitamin D2) 50,000 unit Tablet 50,000 unit PO QMONTH RF: 0 diltiazem HCl 120 mg capsule,extended release 24hr 120 mg PO QHS Qty: 90 RF: 3 Xarelto 20 mg tablet 20 mg PO QDAY Qty: 90 RF: 3 Primary Care Provider: Charlene Dennison Referrals: Charlene Dennison MD [Primary Care Provider] - Stiven Goldman MD [STAFF PHYSICIAN] - As soon as possible Disposition Disposition: Home, Self Care
[2021-05-14] MEDS: dilTIAZem 25 MG/5 ML Vial 10 MG IV BOLUS (15:23)
[2021-05-14 15:38] LABS: Absolute Lymphocyte Count 1.35 X10^3/uL (0.83-4.51); Absolute Neutrophil Count 9.2 X10^3/uL (2.0-7.7); Basophil# 0.07 X10^3/uL; Basophil% 0.6 % (0-1); Eosinophil# 0.26 X10^3/uL; Eosinophils% 2.1 % (0-5); Hematocrit 49.8 % (40-54); Lymphocyte # 1.35 X10^3/ul (0.83-4.51); Mean Corp Hgb Conc 32.1 g/dL (32-36); Mean Corpuscular Hgb 28.5 pg (27.0-32.0); Mean Corpuscular Volume 88.6 fL (80-94); Mean Platelet Vol. 9.1 fl (6.2-12.0); Monocyte# 1.24 X10^3/uL; Monocyte% 10.1 % (0-10); NRBC Flagged by Analyzer 0 % (0-5); Neutrophil # 9.18 X10^3/uL (2.7-7.7); Neutrophil % 75.2 % (47-70); Platelet Count 323 K/mm3 (150-450); RBC Distribution Width CV 14.1 % (11.6-14.6); RBC Distribution Width SD 45.3 fl (35.1-43.9); Red Blood Count 5.62 M/mm3 (4.6-6.2); White Blood Count 12.2 K/mm3 (4.4-11.0)
[2021-05-14 15:45] LABS: Anion Gap 7 (5-15); BUN 12 mg/dL (7-18); BUN/Creat Ratio 12.2 RATIO (10-20); Calcium,Total 9.7 mg/dL (8.5-10.1); Chloride 103 mmol/L (98-107); Creatinine, Serum 0.98 mg/dL (0.70-1.30); EST Glomerular Filtration Rate 83 mL/min (>60); Est Glom Filt Rate - Afr Amer 100 mL/min (>60); Estimated Creatinine Clearance 90.18 ml/min; Glucose 181 mg/dL (74-106); Magnesium 1.6 mg/dL (1.6-2.6); Potassium 4.9 mmol/L (3.5-5.1); Sodium Level 139 mmol/L (136-145); Troponin-I HS 7.8 pg/mL (3.0-78.5)
[2021-05-14 16:55] VITALS: BP 140/78; PULSE 83; RESP 17; O2SAT 97
== END 2021-05-14 16:59 | disposition home or self-care (01) ==
PROVIDERS: Emergency Provider Emergency Medicine; PCP Internal Medicine
DX: R00.2 Palpitations (principal); R07.89 Other chest pain; I48.0 Paroxysmal atrial fibrillation; I48.92 Unspecified atrial flutter; I42.9 Cardiomyopathy, unspecified; E11.9 Type 2 diabetes mellitus without complications; I10 Essential (primary) hypertension; E78.5 Hyperlipidemia, unspecified; F41.9 Anxiety disorder, unspecified; E66.9 Obesity, unspecified; Z79.01 Long term (current) use of anticoagulants; Z79.84 Long term (current) use of oral hypoglycemic drugs; Z79.899 Other long term (current) drug therapy; Z87.891 Personal history of nicotine dependence
CPT/HCPCS: 71045; 80048; 83735; 84484; 85025; 93005; 96374; 99284; A4216

== ENCOUNTER 2022-02-19 12:27 | Emergency (ER) | payer MEDICARE, OTHER, SELFPAY ==
[2022-02-19] VITALS (8 sets, daily range): BP systolic 123–179; BP diastolic 76–123; PULSE 82–120; RESP 12–22; TEMP 36.1; O2SAT 86–97; BMI 46.1
--- NOTE | 2022-02-19 12:34 | EKG12_ITS ---
Test Reason : PALPS Blood Pressure : / mmHG Vent. Rate : 102 BPM Atrial Rate : 104 BPM P-R Int : 000 ms QRS Dur : 154 ms QT Int : 386 ms P-R-T Axes : 000 041 029 degrees QTc Int : 503 ms Atrial fibrillation with premature ventricular or aberrantly conducted complexes Left bundle branch block Abnormal ECG Confirmed by CAMERON SILVA, TY ([id number]), online content editor LUIS DONALD ([id number]) on 02/21/2022 11:34:20 AM Referred By: SAY Confirmed By:TY BARNES MD
[2022-02-19 12:57] LABS: Absolute Lymphocyte Count 1.22 X10^3/uL (0.83-4.51); Absolute Neutrophil Count 11.9 X10^3/uL (2.0-7.7); Basophil# 0.06 X10^3/uL; Basophil% 0.4 % (0-1); Eosinophil# 0.38 X10^3/uL; Eosinophils% 2.6 % (0-5); Hematocrit 45.6 % (40-54); Hemoglobin 15.2 g/dL (13.0-16.5); Lymphocyte # 1.22 X10^3/ul (0.83-4.51); Lymphocyte % 8.3 % (19-41); Mean Corp Hgb Conc 33.3 g/dL (32-36); Mean Corpuscular Hgb 29.1 pg (27.0-32.0); Mean Corpuscular Volume 87.4 fL (80-94); Mean Platelet Vol. 8.5 fl (6.2-12.0); Monocyte# 1.01 X10^3/uL; Monocyte% 6.9 % (0-10); NRBC Flagged by Analyzer 0 % (0-5); Neutrophil % 80.7 % (47-70); Platelet Count 301 K/mm3 (150-450); RBC Distribution Width CV 13.5 % (11.6-14.6); Red Blood Count 5.22 M/mm3 (4.6-6.2); White Blood Count 14.7 K/mm3 (4.4-11.0)
--- NOTE | 2022-02-19 13:02 | RAD_ITS ---
STUDY: X-RAY CHEST REASON FOR EXAM: Male, 61 years old. Chest pain TECHNIQUE: Single AP portable view of the chest. COMPARISON: Comparison is made with prior study dated 05/14/2021 and 10/14/2019. FINDINGS: EKG electrodes are seen. The lungs are clear and expanded. There is no demonstrated pleural abnormality. There is borderline cardiomegaly. Normal mediastinum and nicol. Normal visualized pulmonary arteries. Normal visualized aortic arch and descending thoracic aorta. Normal visualized thoracic spine. Normal visualized ribs, clavicles, and shoulders. There is no demonstrated abnormality of the visualized soft tissue structures of the upper abdomen. RAD/Chest 1 View (Portable) IMPRESSION: Borderline cardiomegaly. The lungs are clear. Electronically Signed: Hood Thornton MD at 13:14 EDT ,
[2022-02-19 13:07] LABS: International Normalized Ratio 1.4; Prothrombin Time (Protime)PT. 16.5 SECONDS (11.7-14.9)
[2022-02-19 13:17] LABS: Anion Gap 6 (5-15); BUN 10 mg/dL (7-18); BUN/Creat Ratio 11.9 RATIO (10-20); Calcium,Total 8.8 mg/dL (8.5-10.1); Chloride 98 mmol/L (98-107); Creatinine, Serum 0.84 mg/dL (0.70-1.30); EST Glomerular Filtration Rate 99 mL/min (>60); Est Glom Filt Rate - Afr Amer 120 mL/min (>60); Estimated Creatinine Clearance 107.01 ml/min; Glucose 158 mg/dL (74-106); Potassium 4.3 mmol/L (3.5-5.1); Sodium Level 135 mmol/L (136-145); Troponin-I HS 4 pg/mL (3.0-78.0)
--- NOTE | 2022-02-19 13:25 | EX.ED.DYSGE1 ---
HPI History of Present Illness Chief Complaint: Palpitations Informant: patient Onset/Context/Timing Onset: Today and Hours (1000) Context: Sudden Onset Timing: Continuous Quality: Palpitations Location: Chest Current Severity: Mild Maximum Severity: Moderate Worsened by: Nothing Relieved by: Nothing Associated Symptoms Associated Symptoms: Mild shortness of breath Narrative Narrative: Patient is a 61-year-old male with history of paroxysmal atrial fibrillation. He was last cardioverted April/May of last year. He is on Eliquis. He has missed no doses. He has had nothing to eat or drink since last evening. He denies headache, visual, ocular auditory symptoms. He denies chest discomfort of any type. He denies nausea, vomiting diarrhea. He denies paresthesia, anesthesia or motor weakness. He denies problems with coordination or balance. He has stable two-pillow orthopnea. He has mild swelling of his lower extremities, which is chronic. Prior similar symptoms: Yes Recent Illness/Hospitalization: No PFSH PFS Medical History Anxiety disorder Atrial fibrillation Atrial flutter with rapid ventricular response Cardiomyopathy Diabetes mellitus type 2 in obese Hyperlipidemia Hypertension Obesity Palpitations Paroxysmal atrial flutter Systolic dysfunction Home Medications allopurinol 100 mg PO DAILY 05/15/14 [History Last Taken Unknown] omeprazole 20 mg PO DAILY 05/15/14 [History Last Taken 07/15/19] alprazolam 0.5 mg PO TID 01/09/19 [History Last Taken 07/15/19] atorvastatin 40 mg PO QHS 01/09/19 [History Last Taken Unknown] sertraline 50 mg PO DAILY 01/09/19 [History Last Taken Unknown] carvedilol 6.25 mg tablet 6.25 mg PO BID #180 tab 02/11/19 [Rx Last Taken 07/15/19] lisinopril-hydrochlorothiazide 1 ea PO UD 07/13/19 [History Last Taken Unknown] rivaroxaban 20 mg tablet 20 mg PO QDAY #90 tab 02/17/20 [Rx Last Taken Unknown] ergocalciferol (vitamin D2) 50,000 unit PO QMONTH 05/14/21 [History Last Taken Unknown] metformin 500 mg PO BID 05/14/21 [History Last Taken Unknown] diltiazem HCl 120 mg PO BID 02/19/22 [History Last Taken Unknown] Allergy/AdvReac Type Severity Reaction Status Date / Time No Known Allergies Allergy Verified 05/14/21 14:49 Family History Mother Cardiomyopathy Cancer thyroid cancer CHF (congestive heart failure) Father CAD (coronary artery disease) Sister COPD (chronic obstructive pulmonary disease) Breast cancer Surgical History History of cardioversion S/P arthroscopy of left shoulder s/p right shoulder surgery S/P tonsillectomy Status post left foot surgery Social History (Updated 02/19/22 @ 13:[address] Tripp Vogel MD) household members: spouse Smoking Status: Former smoker alcohol intake: current alcohol intake frequency: 3 or more drinks per day Alcohol type: beer details: occasional substance use type: does not use ROS ROS ED Constitutional Constitutional ED: Denies chills, fever(s), subjective, sweats or weight loss Eyes Eyes: Denies blurry vision, change in vision or diplopia ENT ENT ED: Denies ear pain, rhinorrhea or sore throat Cardiovascular Cardiovascular: Reports orthopnea, palpitations and racing heartbeat; Denies chest pain or paroxysmal nocturnal dyspnea Respiratory/Chest Respiratory/Chest: Reports dyspnea and orthopnea; Denies cough, dyspnea on exertion, paroxysmal nocturnal dyspnea or sputum Gastrointestinal Gastrointestinal: Denies abdominal pain, diarrhea, nausea or vomiting Genitourinary Genitourinary ED: Denies dysuria, hematuria or urinary frequency Musculoskeletal Musculoskeletal: Denies arthralgias, back pain, myalgias or neck pain Integumentary Denies rash Neurologic Neurologic: Denies headache(s) or weakness Endocrine Endocrinology: Denies polydipsia, polyphagia or polyuria Allergic/Immunologic Allergic/Immunologic ED: Denies mouth swelling, tongue swelling or urticaria EXAM Physical Exam Const Vital Signs: 02/19/22 12:28 02/19/22 12:43 Temperature 97 F L Temperature Source Temporal Pulse Rate 82 102 H Respiratory Rate 18 22 H Blood Pressure 154/90 H 152/106 H Blood Pressure Mean 111 121 Pulse Ox 97 97 Oxygen Delivery Method Room Air Nasal Cannula Oxygen Flow Rate (L/min) 2 Positive well nourished, well developed and obese General Appearance ED: well developed and NAD; Negative for cyanotic, diaphoretic or pallor Nutritional Appearance: obese HEENT Reports TM's clear and dry mucous membranes Negative for trauma or tenderness Tympanic Membrane ED: Yes TM's clear Mouth ED: Yes dry mucous membranes Mouth: dry mucous membranes Eyes PERRL and EOMs intact bilaterally General Eye ED: Negative for pale conjunctiva or scleral icterus Neck no lymphadenopathy, supple and no JVD Resp normal respiratory effort and clear to auscultation bilaterally Cardio no murmurs Rate: tachycardic Rhythm: abnormal rhythm irregularly irregular GI normal to inspection, nondistended, normoactive bowel sounds, non-tender and non-distended Palpation: soft Back/Spine no CVA tenderness Thoracic Spine / Upper Back: Negative for thoracic spinal tenderness or paraspinal muscle tenderness Extremity Negative for normal to inspection General Extremety ED: Negative for edema or tenderness General Extremity: Negative for edema Neuro oriented x3, CN's II-XII intact bilaterally and no sensory deficits noted Sensorium / Orientation: alert Motor Exam: strength 5/5 throughout Psych mental status grossly normal Skin no rashes or lesions noted and no wounds General Skin Exam: Negative for jaundice or pallor MDM MDM MDM Narrative Medical decision making narrative: Patient is in A. fib with RVR. Heart rate on the monitor is 133. There is no ectopy. Since patient has had nothing to eat since last evening will undergo procedural sedation using propofol. Patient had been cardioverted 6 prior times. He has no allergy to soy products or egg products. Had no complication when propofol has been used. Patient been explained risk benefits. Will obtain consent for sedation with propofol and cardioversion. Spoke with Dr. Ken Ortiz who is on-call for Dr. Goldman. Agrees with plan. Lab Data Attestation: I reviewed the patient's lab results. Lab results narrative: White count is elevated. There is no bandemia. Electrolyte panel is unremarkable. Troponin is normal at 4. Labs: Laboratory Results - last 24 hr 02/19/22 02/19/22 02/19/22 12:50 12:50 12:50 WBC 14.7 H RBC 5.22 Hgb 15.2 Hct 45.6 MCV 87.4 MCH 29.1 MCHC 33.3 RDW Std Deviation 43.0 RDW Coeff of Lon 13.5 Plt Count 301 MPV 8.5 Immature Gran % (Auto) 1.100 H Neut % (Auto) 80.7 H Lymph % (Auto) 8.3 L [place] % (Auto) 6.9 Eos % (Auto) 2.6 Baso % (Auto) 0.4 Absolute Neuts (auto) 11.9 H Absolute Lymphs (auto) 1.22 Nucleated RBC % 0 PT 16.5 H INR 1.4 Sodium 135 L Potassium 4.3 Chloride 98 Carbon Dioxide 31.0 Anion Gap 6 BUN 10 Creatinine 0.84 Estim Creat Clear Calc 107.01 Est GFR (MDRD) Af Amer 120 Est GFR (MDRD) Non-Af 99 BUN/Creatinine Ratio 11.9 Glucose 158 H Calcium 8.8 Troponin I High Sens 4 Radiography Chest X-Ray - ED: 1 View and Read by ED Physician (Cardiac silhouette is normal. Heart is slightly enlarged. Perihilar regions unremarkable. Osseous structures are unremarkable. There is no evidence of congestive heart failure.) Diagnostic Testing: Clinical Impression(s) from Imaging Studies Chest X-Ray 02/19/22 13:02 IMPRESSION: Borderline cardiomegaly. The lungs are clear. Electronically Signed: Hood Thornton MD at 13:14 EDT , EKG Initial EKG: Attestation: I personally reviewed and interpreted this EKG as follows: Interpretation: Atrial Fibrillation (Ventricular rate is 102. QRS duration 104 and configuration/morphology consistent with left bundle branch block. QT interval is 386 ms. [place] to the left.) Procedures Other Procedures Procedure(s): 1. Deep sedation using propofol 2. Cardioversion Patient was informed that his heart is beating rapidly and irregular. Patient was given options. Plan was cardioversion. Patient given opportunity ask questions. Patient's response was I been cardioverted 6 times. He denies allergy to soy products or egg products. Has had no complications with propofol in the past. Consent was obtained for cardioversion and deep sedation. Timeout was called. Procedure started at 1430 and ended at 1440. Patient was preoxygenated. He received a total of 150 mg propofol. Patient was successfully cardioverted first attempt using 200 J. Patient did desaturate after cardioversion. Oxygen was increased and jaw thrust was performed. Patient pulse ox increased to 88%. He was placed on nonrebreather mask. I did not leave the room until patient regained consciousness and was breathing without Jolliff. Discharge Plan Triage Chief Complaint: Palpitations ED Provider: Tripp Vogel Dx/Rx/DC Orders Clinical Impression: Paroxysmal atrial fibrillation with RVR, Obesity, Diabetes mellitus type 2 in obese, Cardiomyopathy, Pure hypercholesterolemia Instructions: ED AFIB, ED Cardioversion, Electrical Prescriptions: No Action carvedilol 6.25 mg tablet 6.25 mg PO BID Qty: 180 RF: 3 allopurinol 100 MG tablet 100 mg PO DAILY RF: 0 omeprazole 20 MG capsule 20 mg PO DAILY RF: 0 atorvastatin 40 MG tablet 40 mg PO QHS RF: 0 alprazolam 0.5 MG tablet 0.5 mg PO TID RF: 0 sertraline 50 MG tablet 50 mg PO DAILY RF: 0 lisinopril-hydrochlorothiazide 1 EACH tablet 1 ea PO UD RF: 0 metformin 500 mg Tablet 500 mg PO BID RF: 0 ergocalciferol (vitamin D2) 50,000 unit Tablet 50,000 unit PO QMONTH RF: 0 diltiazem HCl 120 mg capsule,extended release 24hr 120 mg PO BID RF: 0 Xarelto 20 mg tablet 20 mg PO QDAY Qty: 90 RF: 3 Primary Care Provider: Charlene Dennison Referrals: Charlene Dennison MD [Primary Care Provider] - Stiven Goldman MD [STAFF PHYSICIAN] - 5-7 Days Activity Restrictions/Additional Instructions: No driving today Disposition Disposition: Home, Self Care
--- NOTE | 2022-02-19 14:44 | EKG12_ITS ---
Test Reason : POST CARDIOVERSION Blood Pressure : / mmHG Vent. Rate : 092 BPM Atrial Rate : 092 BPM P-R Int : 178 ms QRS Dur : 152 ms QT Int : 408 ms P-R-T Axes : 035 130 020 degrees QTc Int : 504 ms Normal sinus rhythm Non-specific intra-ventricular conduction block Low voltage QRS (limb leads) Abnormal ECG Confirmed by CAMERON SILVA, TY ([id number]), editor trade journal LUIS DONALD ([id number]) on 02/21/2022 11:34:51 AM Referred By: MARÍA Confirmed By:TY BARNES MD
[2022-02-19] MEDS: Propofol 200 MG/20 ML Vial IV BOLUS (14:55)
== END 2022-02-19 15:13 | disposition home or self-care (01) ==
PROVIDERS: Emergency Provider Emergency Medicine; PCP Internal Medicine; Visit Provider Emergency Medicine
DX: I48.0 Paroxysmal atrial fibrillation (principal); I42.9 Cardiomyopathy, unspecified; E11.9 Type 2 diabetes mellitus without complications; M79.89 Other specified soft tissue disorders; I10 Essential (primary) hypertension; E78.5 Hyperlipidemia, unspecified; E66.9 Obesity, unspecified; Z79.01 Long term (current) use of anticoagulants; Z79.84 Long term (current) use of oral hypoglycemic drugs; Z79.899 Other long term (current) drug therapy; Z87.891 Personal history of nicotine dependence
CPT/HCPCS: 71045; 80048; 84484; 85025; 85610; 92960; 93005; 99152; 99284; J7030; J7040; A4216

== ENCOUNTER → 2022-04-11 | Outpatient (CLI) | payer MEDICARE, OTHER, SELFPAY | END | disposition home or self-care (01) | LOC: SL 10:24 | PROVIDERS: PCP Internal Medicine; Visit Provider Physician Assistant Medical | DX: G47.33 Obstructive sleep apnea (adult) (pediatric) (principal) | CPT/HCPCS: 95806 ==

== ENCOUNTER → 2022-05-02 | Outpatient (CLI) | payer MEDICARE, OTHER, SELFPAY ==
--- NOTE | 2022-05-02 06:52 | ECHOCS_ITS ---
Reason For Study: ATRIAL FIB-FLUTTER Procedure This was a 2D Doppler, Color Flow transthoracic echocardiogram. The study was technically difficult. Contrast injection was performed. Exam performed in department. Left Ventricle Normal LV size. Left ventricular systolic function is normal. The estimated ejection fraction is 65 %. No evidence for diastolic dysfunction. No regional wall motion abnormalities noted. Right Ventricle Normal RV size. Normal systolic function. Atria Normal left atrium. Normal right atrium. No doppler evidence for ASD. Mitral Valve There is mild mitral annular calcification. Normal mitral valve. Trivial mitral valve insufficiency. Tricuspid Valve Normal tricuspid valve. Trivial tricuspid valve insufficiency. Right ventricular systolic pressure estimated to be 24 mmHg. Aortic Valve Trisinus/trileaflet aortic valve. Normal aortic valve. Pulmonic Valve The pulmonic valve is not well visualized. Great Vessels Mildly dilated aortic root. Pericardium/Pleural No pericardial effusion. Medication Diluted definity 5ml given slow IV push to enhance endocardial definition. MMode/2D Measurements & Calculations LVIDd: 5.4 cm IVSd: 1.3 cm Ao root diam: 3.7 cm LVIDs: 3.7 cm LVPWd: 1.2 cm RVDd: 3.8 cm FS: 32.5 % LAV(MOD-bp): 55.4 ml LVAd ap4: 39.7 cm2 SV(MOD-sp4): 88.8 ml LAV(MOD-bp) Indexed: 20.2 ml/m2 LVLd ap4: 9.0 cm LAV(MOD-sp2): 53.5 ml EDV(MOD-sp4): 143.2 ml LAV(MOD-sp4): 59.6 ml EDV(sp4-el): 148.8 ml LVAs ap4: 21.5 cm2 LVLs ap4: 7.0 cm ESV(MOD-sp4): 54.4 ml ESV(sp4-el): 56.2 ml EF(MOD-sp4): 62.0 % EF(sp4-el): 62.2 % SV(sp4-el): 92.5 ml LA A4 area: 21.5 cm2 LA dimension(2D): 4.0 cm RA A4 area: 23.6 cm2 Time Measurements MV dec time: 0.17 sec Doppler Measurements & Calculations MV E max ruddy: 66.6 cm/sec Lat Peak E' Ruddy: 9.5 cm/sec Med Peak E' Ruddy: 7.0 cm/sec MV A max ruddy: 100.9 cm/sec E/E' lat: 7.0 E/E' med: 9.5 MV E/A: 0.66 Ao V2 max: 182.2 cm/sec LV V1 max: 116.2 cm/sec PA V2 max: 142.2 cm/sec Ao max P.3 mmHg LV V1 max P.4 mmHg TR max ruddy: 228.9 cm/sec TR max P.0 mmHg ECHO/Echo Complete W/ Contrast Interpretation Summary The study was technically difficult. Contrast injection was performed. Left ventricular systolic function is normal. The estimated ejection fraction is 65 %. There is mild mitral annular calcification. Trivial mitral valve insufficiency. Trivial tricuspid valve insufficiency. Mildly dilated aortic root. Right ventricular systolic pressure estimated to be 24 mmHg. No evidence for diastolic dysfunction. Ordering Physician: Dari Little/Stiven Goldman Referring Physician: SAMINA GOMEZ Performed By: Shea Monk RDCS
--- NOTE | 2022-05-02 10:16 | STRESSREP ---
Stress Test Report Date: 05-02-2022 Procedure: Pharmacologic stress nuclear imaging study Indications: Atrial fibrillation; shortness of breath/dyspnea Consent: Per the patient Procedure: The patient underwent pharmacologic (Regadenoson 0.4mg ) evaluation with a peak heart rate of 104 beats per minute (64%predicted maximal heart rate) and a peak blood pressure of 142/80 mmHg. The baseline ECG demonstrated normal sinus rhythm; incomplete left bundle branch block pattern. The peak pharmacologic ECG demonstrated no obvious ECG changes. There were no cardiac dysrhythmias pretest, during pharmacologic infusion, or recovery. There was no complaint of chest discomfort during pharmacologic infusion or recovery. The examination was discontinued secondary to completion of protocol. Impression: 1. Pharmacologic (Regadenoson) evaluation 2. Peak pharmacologic ECG with continued sinus rhythm with an incomplete left bundle branch block pattern with no obvious ECG changes. 3. There were no cardiac dysrhythmias pretest, during pharmacologic infusion, or recovery. 4. Nuclear images pending Myocardial perfusion imaging study: Technique: The patient was injected with 11.1 millicuries of technetium 99m Cardiolite and subsequently rest SPECT Cardiolite nuclear imaging was obtained in the horizontal long, vertical long, and short axis views. The patient underwent pharmacologic (Regadenoson) evaluation with a peak heart rate of 104 beats per minute (64% percent predicted maximal heart rate) and a peak blood pressure of 142/80 mmHg. The patient was injected with 34.7 millicuries of technetium 99m Cardiolite and subsequently stress SPECT Cardiolite nuclear imaging was obtained in the horizontal long, vertical long, and short axis views. A gated Cardiolite study at peak stress was obtained. Interpretation: Rest and stress SPECT Cardiolite nuclear imaging status post realignment, normalization, and attenuation correction demonstrate a small area of diminished myocardial perfusion/tracer uptake in the apical areas which appears to be somewhat more prominent following stress as opposed to rest. There is end systolic thickening and brightening. The gated Cardiolite study demonstrates myocardial thickening and inward wall motion. The reported LVEF is 52 %. Impression: 1. Rest and stress SPECT her nuclear imaging demonstrate myocardial perfusion changes potentially compatible with a small area of previous myocardial injury/infarction involving a segment of the apical areas with post stress myocardial perfusion changes potentially compatible with an area of raina-infarct related myocardial ischemia, however, an element of shifting soft tissue attenuation/artifact cannot necessarily be excluded. 2. The gated Cardiolite study reports an LVEF of 52%. This note was generated with [employer] software. It may contain incorrect words, spelling, and punctuation that were not noted in checking the note before signing.
== END | disposition home or self-care (01) ==
PROVIDERS: PCP Internal Medicine; Referring Provider Physician Assistant Medical; Visit Provider Physician Assistant Medical
DX: I48.91 Unspecified atrial fibrillation (principal); R00.2 Palpitations; R94.31 Abnormal electrocardiogram [ECG] [EKG]
CPT/HCPCS: 78452; 93017; 93306; A9500; Q9957; A4216; C8929; J2785

== ENCOUNTER → 2022-05-18 | Outpatient (CLI) | payer MEDICARE, OTHER, SELFPAY ==
[2022-05-18 12:31] LABS: Absolute Lymphocyte Count 1.26 X10^3/uL (0.83-4.51); Absolute Neutrophil Count 8.7 X10^3/uL (2.0-7.7); Basophil# 0.05 X10^3/uL; Basophil% 0.4 % (0-1); Eosinophil# 0.32 X10^3/uL; Eosinophils% 2.8 % (0-5); Hematocrit 44.3 % (40-54); Lymphocyte # 1.26 X10^3/ul (0.83-4.51); Lymphocyte % 11.1 % (19-41); Mean Corp Hgb Conc 33.9 g/dL (32-36); Mean Corpuscular Hgb 29.2 pg (27.0-32.0); Mean Corpuscular Volume 86.4 fL (80-94); Mean Platelet Vol. 8.5 fl (6.2-12.0); Monocyte# 0.87 X10^3/uL; Monocyte% 7.7 % (0-10); NRBC Flagged by Analyzer 0 % (0-5); Neutrophil # 8.74 X10^3/uL (2.7-7.7); Neutrophil % 77.2 % (47-70); Platelet Count 327 K/mm3 (150-450); RBC Distribution Width CV 12.9 % (11.6-14.6); RBC Distribution Width SD 40.4 fl (35.1-43.9); Red Blood Count 5.13 M/mm3 (4.6-6.2); White Blood Count 11.3 K/mm3 (4.4-11.0)
[2022-05-18 12:42] LABS: International Normalized Ratio 1.5; Prothrombin Time (Protime)PT. 17.9 SECONDS (11.7-14.9)
[2022-05-18 12:43] LABS: Partial Thromboplast Time 32.4 Seconds (24.1-36.2)
[2022-05-18 13:05] LABS: Anion Gap 9 (5-15); BUN 9 mg/dL (7-18); BUN/Creat Ratio 11.8 RATIO (10-20); Calcium,Total 9.5 mg/dL (8.5-10.1); Chloride 96 mmol/L (98-107); Creatinine, Serum 0.76 mg/dL (0.70-1.30); EST Glomerular Filtration Rate 111 mL/min (>60); Est Glom Filt Rate - Afr Amer 134 mL/min (>60); Glucose 134 mg/dL (74-106); Potassium 4.6 mmol/L (3.5-5.1); Sodium Level 133 mmol/L (136-145)
== END | disposition home or self-care (01) ==
LOC: LAB 11:11
PROVIDERS: PCP Internal Medicine; Referring Provider Physician Assistant Medical; Visit Provider Physician Assistant Medical
DX: R94.39 Abnormal result of other cardiovascular function study (principal); I42.9 Cardiomyopathy, unspecified; I48.0 Paroxysmal atrial fibrillation
CPT/HCPCS: 36415; 80048; 85025; 85610; 85730

== ENCOUNTER → 2022-05-28 | Outpatient (CLI) | payer MEDICARE, OTHER, SELFPAY | END | disposition home or self-care (01) | LOC: SL 21:56 | PROVIDERS: PCP Internal Medicine; Referring Provider Nurse Practitioner Acute Care; Visit Provider Nurse Practitioner Acute Care | DX: G47.33 Obstructive sleep apnea (adult) (pediatric) (principal) | CPT/HCPCS: 95811 ==

== ENCOUNTER 2022-05-29 07:19 | Day surgery (SDC) | payer MEDICARE, OTHER, SELFPAY ==
--- NOTE | 2022-05-28 09:56 | HP.PCM_ITS ---
History and Physical Date of Admission: 05/29/22 [facility] [address] [place], [place] [id number] OFFICE VISIT Date of Service:? 05/18/22 MR#: [id number] Acct: [id number] Name:VISHAL KLINE Rep #: [id number] : 1960 Provider: MELVA Little Age/Sex:? 61/M Location: [facility] [place] Status: Signed [facility] History of Present Illness Details: This is a 61-year-old gentleman that presents here today for cardiovascular follow-up.? He recently reestablished with us for increased increased Afib. He does have a history of atrial flutter with a cardioversion in 2013, 2017 x2, 2019x , 2020 and most recently February of this year in the ER.? He also has a history of hypertension, cardiomyopathy, hyperlipidemia, diabetes and obesity.? Patient underwent a stress test where there was some concerns over possible ischemia he is scheduled for a diagnostic heart catheterization. He is scheduled to undergo a sleep study the day prior to his heart cath.? He did have one episode of Afib, this was following a GI upset with diarrhea.? This did resolved after a bit. Intake Vital Signs ? 03/02/2209:27 05/01/2208:30 05/18/2209:55B 05/18/2209:55 Height 6 ft 1 in 6 ft 1 in 6 ft 1 in 6 ft 1 in Weight: ? 352 lb 6 oz ? 347 lb D BMI ? 46.5 ? 45.8 BP ? 130/89 H ? 107/68 Blood Pressure Location ? Lt brachial ? Lt brachial Position ? Sitting ? Sitting Respiration ? 14 ? 18 Pulse ? 73 ? 68 Pulse Source ? Monitor ? Monitor Temp ? 97.3 F L ? ? D Temperature Source ? Temporal Artery ? ? Pulse Oximetry (%) ? 94 ? ? Oxygen Delivery Method ? room air ? ? Intake Visit Reasons:?2 M FU Administrative Project Coordinator Required: No Accompanied by: Is patient in pain?: No Allergies No Known Allergies Allergy (Verified 05/18/22 10:03) Medications allopurinol 100 mg tablet 100 mg PO DAILY 05/15/14 [History Confirmed 05/18/22] omeprazole 20 mg capsule,delayed release 20 mg PO DAILY 05/15/14 [History Confirmed 05/18/22] alprazolam 0.5 mg tablet 0.5 mg PO TID anxiety 01/09/19 [History Confirmed 05/18/22] atorvastatin 40 mg tablet 40 mg PO QHS cholestrol 01/09/19 [History Confirmed 05/18/22] sertraline 50 mg tablet 50 mg PO DAILY depression 01/09/19 [History Confirmed 05/18/22] carvedilol 6.25 mg tablet 6.25 mg PO BID #180 tabs 02/11/19 [Rx Confirmed 05/18/22] rivaroxaban 20 mg tablet (Xarelto) 20 mg PO QDAY #90 tabs 02/17/20 [Rx Confirmed 05/18/22] ergocalciferol (vitamin D2) 50,000 unit tablet 50,000 unit PO QMONTH 05/14/21 [History Confirmed 05/18/22] metformin 500 mg tablet 500 mg PO BID 05/14/21 [History Confirmed 05/18/22] diltiazem HCl 120 mg capsule,extended release 24 hr 120 mg PO BID 02/19/22 [History Confirmed 05/18/22] ascorbic acid (vitamin C) 500 mg tablet tablet PO 05/01/22 [History Confirmed 05/18/22] testosterone 20.25 mg/1.25 gram (1.62 %) transdermal gel pump 2 pump topical DAILY 05/01/22 [History Confirmed 05/18/22] lisinopril 20 mg tablet 20 mg PO QPM 05/18/22 [History Confirmed 05/18/22] lisinopril 20 mg-hydrochlorothiazide 12.5 mg tablet 1 tab PO QAM 05/18/22 [History Confirmed 05/18/22] Ejection fraction %: 65 to 70 PFSH Medical History? Anxiety disorder Atrial fibrillation Atrial flutter with rapid ventricular response Cardiomyopathy Diabetes mellitus type 2 in obese Hyperlipidemia Hypertension Obesity SHARRI (obstructive sleep apnea) Palpitations Paroxysmal atrial flutter Systolic dysfunction Surgical History? History of cardioversion S/P arthroscopy of left shoulder s/p right shoulder surgery S/P tonsillectomy Status post left foot surgery Family History? Mother Cardiomyopathy Cancer ?? ? thyroid cancer CHF (congestive heart failure)Father CAD (coronary artery disease)Sister COPD (chronic obstructive pulmonary disease) Breast cancer Social History? household members:? spouse Smoking Status:? Former smoker how long ago did patient quit smoking:? 1991 alcohol intake:? current alcohol intake frequency: 3 or more drinks per day Alcohol type: beer details:? occasional substance use type:? does not use caffeine:? No ROS Const Const: Positive for fatigue (Unchanged from previous); Negative for weakness, headache(s), frequent falls, difficulty sleeping or excessive sweating Eyes Eyes: Negative for loss of peripheral vision, transient loss of vision, blurry vision, double vision or tunnel vision ENT ENT: Positive for dizziness (Episode last weekend related to dehydration (had the flu)); Negative for headache(s), Nosebleed/epistaxis or balance problems Cardio Chest Pain: No Palpitations: Yes (Has been occuring more frequently (every few days) 10-15 mins each) feels like its: fast Edema: None Muscle aches with walking: None Resp Respiratory: Positive for SOB with activity (With increased exertion, stairs); Negative for SOB at rest, SOB orthopnea\SOB lying down, Cough or paroxysmal nocturnal dyspnea GI GI: Negative nausea, vomiting, heartburn or black,tarry stools : Negative for hematuria Musc Musc: Negative for muscle aches/ myalgia, muscle weakness, joint pain or balance problems Skin Skin: Negative non-healing lesions, rash or unusual bruising Neuro Neuro: Positive for dizziness (Episode last weekend related to dehydration (had the flu)); Negative for lightheadedness, near syncope, syncope, frequent falls, headache(s), weakness, blurry vision, double vision or lack of coordination David Hematologic/Lymphatic: Negative for easy bleeding or easy bruising Endo Endo: Positive for fatigue (Unchanged from previous); Negative for excessive sweating or increased thirst/drinking Psych Psych: Negative for anxiety or depression Allergy Allergy/Immunology: Negative for hives and Negative for rash Cardiology Exam Const Appearance: cooperative, healthy appearing, comfortable, no acute distress and well developed Nutritional Appearance: obese Orientation: alert, awake and oriented x3 Head Head: normal to inspection Ears: hearing grossly normal bilaterally Nose: external nose normal Face and Sinus: face symmetric Mouth: oral mucosae normal, lip normal and moist mucous membranes Eyes General: appearance normal, both eyes and all related structures Eyelids: eyelids normal Conjunctivae: conjunctivae normal Pupils: PERRL EOM: EOM intact bilaterally Neck Neck: normal visual inspection and trachea midline; Negative no JVD Carotids: Negative bruit Chest Chest inspection: normal inspection of the chest Auscultation: Bilateral: Clear to Auscultation Cardio Palpation: normal PMI Rate: regular rate Rhythm: regular rhythm Heart sounds: S1 normal and S2 normal; Negative rub, gallop or murmur GI GI: soft, no hepatosplenomegaly, bowel sounds present and obese Neuro General: patient alert, patient awake, patient oriented x3 and CN's II-XI intact bilaterally Extremities Pulses: Normal: Right Posterior Tibial Pulse, Left Posterior Tibial Pulse, Right Radial Pulse and Left Radial Pulse Lower Extremity Edema: None: Bilateral Psych Psychological: normal affect Supplemental Info Supplemental Information Transthoracic echocardiogram: 01/09/2019 Interpretation Summary The study was technically difficult. Contrast injection was performed. Left ventricular systolic function is normal. The estimated ejection fraction is 65 %. There is mild mitral annular calcification. Trivial mitral valve insufficiency. Trivial tricuspid valve insufficiency. Mildly dilated aortic root. Unable to estimate RV systolic pressure/pulmonary artery pressure due to technically difficult study. No evidence for diastolic dysfunction. Echocardiogram 05/02/2022: Left ventricular systolic function is normal. The estimated ejection fraction is 65 %. There is mild mitral annular calcification. Trivial mitral valve insufficiency. Trivial tricuspid valve insufficiency. Mildly dilated aortic root. Right ventricular systolic pressure estimated to be 24 mmHg. No evidence for diastolic dysfunction. Stress Test Report Date: 05-02-2022 Procedure: Pharmacologic stress nuclear imaging study? Indications: Atrial fibrillation; shortness of breath/dyspnea Consent: Per the patient Procedure: The patient underwent pharmacologic (Regadenoson 0.4mg ) evaluation with a peak heart rate of 104 beats per minute (64%predicted maximal heart rate) and a peak blood pressure of 142/80 mmHg. The baseline ECG demonstrated normal sinus rhythm; incomplete left bundle branch block pattern.? The peak pharmacologic ECG demonstrated no obvious ECG changes. There were no cardiac dysrhythmias pretest, during pharmacologic infusion, or recovery. There was no complaint of chest discomfort during pharmacologic infusion or recovery. The examination was discontinued secondary to completion of protocol. Impression: 1.? Pharmacologic (Regadenoson) evaluation 2.? Peak pharmacologic ECG with continued sinus rhythm with an incomplete left bundle branch block pattern with no obvious ECG changes. 3.? There were no cardiac dysrhythmias pretest, during pharmacologic infusion, or recovery. 4.? Nuclear images pending Myocardial perfusion imaging study: Technique: The patient was injected with 11.1 millicuries of technetium 99m Cardiolite and subsequently rest SPECT Cardiolite nuclear imaging was obtained in the horizontal long, vertical long, and short axis views. The patient underwent pharmacologic (Regadenoson) evaluation with a peak heart rate of 104 beats per minute (64% percent predicted maximal heart rate) and a peak blood pressure of 142/80 mmHg. The patient was injected with 34.7 millicuries of technetium 99m Cardiolite and subsequently stress SPECT Cardiolite nuclear imaging was obtained in the horizontal long, vertical long, and short axis views.? A gated Cardiolite study at peak stress was obtained. Interpretation: Rest and stress SPECT Cardiolite nuclear imaging status post realignment, normalization, and attenuation correction demonstrate a small area of diminished myocardial perfusion/tracer uptake in the apical areas which appears to be somewhat more prominent following stress as opposed to rest.? There is end systolic thickening and brightening.? The gated Cardiolite study demonstrates myocardial thickening and inward wall motion.? The reported LVEF is 52 %. Impression: 1.? Rest and stress SPECT her nuclear imaging demonstrate myocardial perfusion changes potentially compatible with a small area of previous myocardial injury/infarction involving a segment of the apical areas with post stress johnathon cardial perfusion changes potentially compatible with an area of raina-infarct related myocardial ischemia, however, an element of shifting soft tissue attenuation/artifact cannot necessarily be excluded. 2.? The gated Cardiolite study reports an LVEF of 52%. Labs: ?? ? No Data to Display Diagnostics: ?? ? Electrocardiogram ? Echocardiogram ? Stress Test NM ? Stress Test ? Chest X-Ray ? Pulmonary: ?? ? No Data to Display Assessment and Plan Assessment and Plan (1) Abnormal stress test: ?Status:?Acute ?Plan: With patient's abnormal stress test he is scheduled for a heart catheterization.? Instructions were given to patient. (2) Atrial fibrillation with rapid ventricular response: ?Status:?Acute ?Plan: Patient has had recurrent episodes of atrial fibrillation.? He will continue with his carvedilol, diltiazem and factor Xa inhibitor.? May need to consider an antiarrhythmic.? Patient may need to have an antiarrhythmic, because of his abnormal stress test he will undergo a diagnostic heart catheterization so we can best decide which antiarrhythmic would be best for him. (3) Essential hypertension: ?Status:?Acute ?Plan: Blood pressure is controlled on current medications.? He will continue with his current dose of carvedilol, diltiazem, lisinopril and hydrochlorothiazide. (4) Pure hypercholesterolemia: ?Status:?Acute ?Plan: Patient will continue with moderate intensity statin.? These are managed by his primary care doctor. (5) SHARRI (obstructive sleep apnea): ?Status:?Acute ?Plan: Encourage patient to continue to follow through with his sleep study feel that his atrial flutter is likely related to his severe sleep apnea. ?Patient Instructions: Your procedure is schedule for 05/29/22 your procedure is scheduled for 0900, your arrival time is 0730 Nothing to eat or drink after midnight With a small sip of water take your morning medications. Hold your Metformin the night before and for 3 days after Hold your Xarelto 3 days prior to your procedure You will need a company driver.? If you need a stent you will spend the night. Get your labs done this week. Plan Details Follow Up: ? ? 3 Months (MMM) ? ? 1 Year (PFM) Coding Level of Care Code Off vis,est,level 4 Diagnoses Abnormal stress test? R94.39 Atrial fibrillation with rapid ventricular response? I48.91 Essential hypertension? I10 Pure hypercholesterolemia? E78.00 SHARRI (obstructive sleep apnea)? G47.33 Coding Level of Care Code Off vis,est,level 4 Diagnoses Abnormal stress test? R94.39 Atrial fibrillation with rapid ventricular response? I48.91 Essential hypertension? I10 Pure hypercholesterolemia? E78.00 SHARRI (obstructive sleep apnea)? G47.33 05/18/22 1101 <Electronically signed by Dari FRYE> Date Dari Gallego Signature: Date (if applicable) CC:? Dr. Charlene Dennison MD ~ Assessment & Plan Addt'l Comments I have re-examined the patient. There are no clinical changes since date of exam
[2022-05-28 10:53] VITALS: BMI 45.8
--- NOTE | 2022-05-29 10:35 | CL.D_ITS ---
Patient Name: VISHAL BAILEY Study Date: 05/29/2022 Performing: Stiven Goldman MD Ht: 72.83 inches 185 cm : 1960 Wt: 346.13 lbs 157 kg Age: 61 Gender: male BSA: 2.71 PROCEDURE(S) PERFORMED DC02-(14428)C/COR CLINICAL PROFILE AND INDICATIONS Indications: Suspected CAD, Cardiac Arrythmia Heart Failure: None Stress/Imaging Date: 05/02/2022tress Test with SPECT MPI: Positive Intermediate Risk Angina Classification Anginal Classification w/in 2 Weeks: Anginal Equivalent Dyspnea CAD Presentations: Other: shortness of breath CONCLUSIONS Elevated Left Ventricular End Diastolic Pressure Normal coronary arteries RECOMMENDATIONS Risk factor modification Medical therapy DESCRIPTION OF PROCEDURE The patient arrived to the procedure lab. The risks and benefits of the procedure as well as a full d escription of our services here and current unavailability of surgical backup were fully explained to the patient and/or their significant other prior to the catheterization. The Timeout was completed, verifying the correct patient and procedure. The patient's procedural site was prepped and draped in the usual fashion. Local anesthetic was given subcutaneously to right radial region with Lidocaine 2% . Using a modified Seldinger technique, arterial access was obtained via the right radial artery, a 6 Fr sheath was inserted. Left Coronary Artery selective angiography was performed in multiple views u sing a 5 Fr. 4.0 Shobonier catheter. Right Coronary Artery selective angiography was then performed in mu ltiple views using a 5 Fr. 4.0 Shobonier catheter. LV to AO pullback pressures were then recorded.The art erial sheath was pulled and a TR Band was applied for hemostasis CORONARY ANGIOGRAPHY DOMINANCE: Right Dominant LEFT HEART ASSESSMENT Left Ventricular Ejection Fraction: Not assessed Elevated Left Ventricular End Diastolic Pressure LVEDP: 23 mmHg LEFT MAIN: Angiographically normal LEFT ANTERIOR DESCENDING ARTERY: Angiographically normal CIRCUMFLEX ARTERY: Angiographically normal RIGHT CORONARY ARTERY: Angiographically normal COMPLICATIONS No Complications PROCEDURE MEDICATIONS Versed 1 mg IV Fentanyl 50 mcg IV Oxygen: 2 L/min via nasal cannula Heparin given IA 05/29/2022 09:48:07 Verapamil 2.5mg, Ntg 100mcgs, 2000 units of Heparin given IA 05/29/2022 09:48:07 SUMMARY OF HEMODYNAMIC DATA Time AIR REST ECG 07:58:30 Art 133/73 (92) 09:49:30 AO 131/77 (102) SA 10:00:42 LV 148/4, 26 10:10:26 LV 147/2, 23 10:10:32 LVp 143/2, 22 10:10:40 AOp 144/74 (105) 10:10:45 Signed By Stiven Goldman MD On 05/29/2022 10:35:15 Stiven Goldman MD
== END 2022-05-29 12:30 | disposition home or self-care (01) ==
LOC: CLSP 07:22
PROVIDERS: PCP Internal Medicine; Referring Provider Internal Medicine Cardiovascular Disease; Visit Provider Internal Medicine Cardiovascular Disease
DX: I48.91 Unspecified atrial fibrillation (principal); I42.9 Cardiomyopathy, unspecified; I48.92 Unspecified atrial flutter; E11.9 Type 2 diabetes mellitus without complications; I10 Essential (primary) hypertension; R94.39 Abnormal result of other cardiovascular function study; Z79.84 Long term (current) use of oral hypoglycemic drugs; E78.5 Hyperlipidemia, unspecified; E78.00 Pure hypercholesterolemia, unspecified; G47.33 Obstructive sleep apnea (adult) (pediatric); E66.9 Obesity, unspecified; Z79.01 Long term (current) use of anticoagulants; Z79.899 Other long term (current) drug therapy; Z87.891 Personal history of nicotine dependence
CPT/HCPCS: 93454; 99152; 99153; J7030; C1769; C1894; Q9967

== ENCOUNTER → 2022-05-31 | Outpatient (CLI) | payer MEDICARE, OTHER, SELFPAY ==
[2022-05-31 11:53] LABS: Anion Gap 6 (5-15); BUN 7 mg/dL (7-18); BUN/Creat Ratio 8.4 RATIO (10-20); Calcium,Total 9.5 mg/dL (8.5-10.1); Chloride 100 mmol/L (98-107); Creatinine, Serum 0.83 mg/dL (0.70-1.30); EST Glomerular Filtration Rate 100 mL/min (>60); Est Glom Filt Rate - Afr Amer 121 mL/min (>60); Glucose 138 mg/dL (74-106); Potassium 4.2 mmol/L (3.5-5.1); Sodium Level 137 mmol/L (136-145)
== END | disposition home or self-care (01) ==
LOC: LAB 10:07
PROVIDERS: PCP Internal Medicine; Visit Provider Internal Medicine Cardiovascular Disease
DX: I48.0 Paroxysmal atrial fibrillation (principal); I42.9 Cardiomyopathy, unspecified
CPT/HCPCS: 36415; 80048

== ENCOUNTER → 2022-06-07 | Outpatient (CLI) | payer MEDICARE, OTHER, SELFPAY | END | disposition home or self-care (01) | LOC: SL 10:33 | PROVIDERS: PCP Internal Medicine; Visit Provider Internal Medicine Critical Care Medicine | DX: Z00.00 Encounter for general adult medical examination without abnormal findings (principal) ==

== ENCOUNTER 2022-11-21 05:52 | Day surgery (SDC) | payer MEDICARE, OTHER, SELFPAY ==
[2022-11-21 06:28] VITALS: BP 146/94; PULSE 70; RESP 18; TEMP 36.8; O2SAT 95; BMI 44.4
[2022-11-21] MEDS: Lactated Ringers 1,000 ML 15 ML IV (06:35)
--- NOTE | 2022-11-21 06:55 | HP.PCM_ITS ---
History and Physical Date of Admission: 11/21/22 61 M who presents to the office today for Initial consult. Fran established with this clinic 09.24.22 with referral from PCP. GIB history three years prior. He presented for colonoscopy and EGD following positive Cologuard and was found to have bleeding in his terminal ileum with recommendation Fatty liver diagnosed approximately 3-5 years prior. He previously lost 163lbs and had a resolution of DM, hyperlipidemia; however, he has gained a lot of weight back and is now working at losing the weight again. Historically was drinking 12-18 beers a day daily with periods of abstinence. Started drinking at age 18 years of age. PMH A-Fib requiring shock, may require ablation, cardiomyopathy, heart cath without blockage; sleep apnea (BIPAP). PSH multiple orthopedic surgeries. EGD and colonoscopy 07.15.19. EGD found irregular Zline 45cm from incisors; erythematous mucosa, gastritis; gastric inflammatory polyp; gastric hyperplastic inflammatory polyp/fundic gland polyp. H.Pylori negative. Colonoscopy found hemorrhoids; diverticulosis of sigmoid colon; 5mm inflammatory polyp in ascending colon and blood in terminal ileum. ? Reports following this procedure he required hospitalization at [facility]. He resumed blood thinners same day and then had significant GIB requiring blood transfusion. Repeat EGD performed with clip placed at place of polypectomy. Colonoscopy repeated and found TA with recommended repeat in 3 years. Exam Const General: cooperative and comfortable Nutritional Appearance: average body habitus and well nourished [facility] Head: normal to inspection Ears: hearing grossly normal bilaterally Nose: external nose normal Face and sinus: normal facial exam Mouth: oral mucosae normal Throat: posterior oropharynx normal Eyes General: appearance normal, both eyes and all related structures Neck Neck: normal visual inspection Chest Chest palpation & inspection: normal inspection of the chest and normal palpation of entire chest wall Resp Effort & Inspection: normal respiratory effort Auscultation: Bilateral: Clear to Auscultation Cardio Palpation: normal PMI Rate: regular rate Rhythm: regular rhythm GI Inspection: normal to inspection Auscultation: normal bowel sounds Percussion: normal to percussion Palpation: no hepatosplenomegaly Skin General: no rashes or lesions noted Neuro General: patient alert Extrem General: normal to inspection Psych Affect: normal affect Quality Reporting Tobacco Screening ([facility]) Smoking Status: Former smoker Assessment and Plan Assessment and Plan (1) Fatty liver: ?Status:?Chronic ?Plan: He is working on weight loss and regarding his fatty liver.? We did not offer him a FibroScan or biochemical work-up to determine if there is any he has any scarring in his liver.? We will address this fully after he undergoes an upper and lower endoscopy because of his history of GI bleeding after undergoing an upper endoscopy. (2) Colon polyps: ?Status:?Chronic ?Plan: He has a personal history of adenomatous polyps that needs surveillance.? He is on Xarelto therapy for paroxysmal atrial fibrillation and atrial flutter.? He will stop that approximately 3 days prior to procedure and he can restart it after the procedure.? He was explained alternatives, risk, benefits including not withstanding bleeding, infection sepsis, perforation, need for emergent urgent .? He will have an ASA of 3. (3) Gastric polyps: ?Status:?Acute Plan He had inflammatory polyps for some reason in his stomach and his colon.? We will evaluate his upper GI tract to see why he may have inflammatory polyps in his upper GI tract. I have examined the patient and the H&P has been reviewed. There are no clinical changes since date of exam.
--- NOTE | 2022-11-21 07:00 | COLBX_PTH ---
PATIENT: VISHAL BAILEY LOC: EN U#:[id number] AGE/SX: 62/M ROOM: RE11/21/[address]: Dr. Catracho Nunn DO : 1960 BED: DIS: 11/21/2022 SPEC #: [id number] RECD: 11/21/22 10:29 STATUS: PAOLA NAVNEET #: [id number] REX: 11/21/22 07:[address]: Catracho Nunn DEPT: SURGICAL PATHOLOGY RECD BY: Valery Rain ENTERED: 11/21/22 11:57 SP TYPE: COLON BX OTHR DR: Dr. Charlene Dennison MD Tissues: A - Gastric mucous membrane B - Gastric mucous membrane C - Gastric mucous membrane D - Esophagus, NOS E - Sigmoid colon biopsy Procedures: Special Stain Group II Surgery Specimen Level IV Alcian Blue/PAS (control) HEADER OPERATION: Colonoscopy, EGD ([facility]) with biopsies PRE-OP DIAGNOSIS: Fatty liver, colon polyps, gastric polyps TISSUE SUBMITTED: A ? Gastric body biopsy, B ? Antrum biopsy for H. pylori and path, C ? Antrum polyp biopsy, D ? Distal esophagus biopsy, E ? Sigmoid polyp biopsy MICROSCOPIC DIAGNOSIS A. Gastric body, biopsy: Chronic gastritis. B. Gastric antrum, biopsy: Chronic gastritis. See comment. C. Gastric antral polyp, biopsy: Gastric mucosal fragment with hyperplastic change. D. Distal esophagus, biopsy: Gastric mucosa with chronic inflammation. No evidence of goblet cell metaplasia. See comment. E. Sigmoid colon polyp, biopsy: Hyperplastic polyp. AM:jerad 11/22/2022 COMMENT B. The results of immunohistochemistry for Helicobacter pylori will be reported separately ([id number]). D. Alcian blue/PAS stain with matched control supports the above diagnosis. MICROSCOPIC DESCRIPTION Slides are reviewed. GROSS DESCRIPTION A - Received in fixative is one container labeled with the patient's name and designated gastric body biopsy. The specimen consists of two irregular fragments of light braxton soft tissue that in aggregate measure 0.6 x 0.4 x 0.1 cm. The specimen is totally submitted in one cassette. B - Received in fixative is one container labeled with the patient's name and designated antrum biopsy. The specimen consists of one irregular fragment of light braxton soft tissue that measures 0.4 x 0.4 x 0.1 cm. The specimen is totally submitted in one cassette. C - Received in fixative is one container labeled with the patient's name and designated antrum polyp biopsy. The specimen consists of one irregular fragment of light braxton soft tissue that measures 0.3 x 0.3 x 0.1 cm. The specimen is totally submitted in one cassette. D - Received in fixative is one container labeled with the patient's name and designated distal esophagus biopsy. The specimen consists of one irregular fragment of light braxton soft tissue that measures 0.4 x 0.3 x 0.1 cm. The specimen is totally submitted in one cassette. E - Received in fixative is one container labeled with the patient's name and designated sigmoid polyp biopsy. The specimen consists of one irregular fragment of light braxton soft tissue that measures 0.3 x 0.3 x 0.1 cm. The specimen is totally submitted in one cassette. / SJ:rg 11/21/2022 TC:3 CPT: 26156 x5, 33121
--- NOTE | 2022-11-21 07:00 | IMM_PTH ---
PATIENT: VISHAL BAILEY LOC: EN U#:[id number] AGE/SX: 62/M ROOM: RE11/21/[address]: Dr. Catracho Nunn DO : 1960 BED: DIS: 11/21/2022 SPEC #: [id number] RECD: 11/21/22 12:50 STATUS: PAOLA RESteff #: [id number] REX: 11/21/22 07:[address]: Catracho Nunn DEPT: IMMUNOHISTOCHEMISTRY RECD BY: Alissa Sheldon ENTERED: 11/21/22 12:50 SP TYPE: IMMUNO OTHR DR: Dr. Charlene Dennison MD Tissues: B - Stomach, NOS Procedures: H Pylori (initial) PHYSICIAN & INSTITUTION [place] [id number] SPECIMEN INFORMATION: Tissue Source: B ? Antrum biopsy Clinical Info: Fatty liver, colon polyps, gastric polyps Specimen Number: [id number] CPT code: 80056 METHODOLOGY: Deparaffinized sections of prefer/formalin-fixed tissue or PAP/DQ stained slides are incubated with monoclonal/polyclonal antibodies/oligonucleotide probes. Localization is made via biotin free immunoperoxidase method. Appropriate controls are performed and reacted as expected. Results on target cell population are indicated in the following table: RESULTS: ANTIBODY / CLONE RESULT Block B H Pylori (polyclonal) negative These tests were developed and their performance characteristics determined by [facility]. They may not have been cleared or approved by the U.S. Food and Drug Administration. The FDA has determined that such clearance or approval is not necessary. The above immunohistochemical/dualISH markers are ordered and reviewed by the Pathologist. INTERPRETATION: B. Antrum, biopsy: Negative for Helicobacter pylori organisms. AM:jerad 11/22/2022
[2022-11-21 07:16] LABS: Bedside Glucose 179 mg/dL (74-106)
[2022-11-21 07:40] VITALS: BP 118/56; BP 146/94; PULSE 69; RESP 16; TEMP 36.5; O2SAT 92
[2022-11-21 07:45] VITALS: BP 120/56; BP 146/94; PULSE 63; RESP 16; O2SAT 93
--- NOTE | 2022-11-21 07:45 | OP.CCLET_ITS ---
11/21/2022 Charlene Dennison Re : Upper GI endoscopy procedure for Fran Villatoror Juma This procedure was performed on Monday, November 21, 2022. My impressions and recommendations are as follows: Impressions : - Moderate Schatzki ring. Dilated. - Z-line irregular, 40 cm from the incisors. Biopsied. - Gastritis. Biopsied. - A single gastric polyp. Resected and retrieved. - Normal second portion of the duodenum. Recommendations : - Discharge patient to home. - Resume previous diet. - Continue present medications. - Await pathology results. - Repeat upper endoscopy in 1 year for surveillance. My findings are described in the full procedure note, which is enclosed. If I can be of further assistance, please feel free to contact me at . Sincerely, Catracho Friend, 11/21/2022 7:45:19 AM This report has been signed electronically.
--- NOTE | 2022-11-21 07:45 | OP.EGD_ITS ---
Patient Name: Fran Ferris Procedure Date: 11/21/2022 6:57 AM Date of : 1960 Age: 62 Procedure: Upper GI endoscopy Indications: Dysphagia Providers: Catracho Nunn DO Referring MD: Charlene Dennison Medicines: Monitored Anesthesia Care Patient Profile: This is a 62 year old male. Refer to note in patient chart for documentation of history and physical. Patient has symptoms of chronic epigastric abdominal pain and dysphagia with both liquids and solids. Complications: No immediate complications. Procedure: Pre-Anesthesia Assessment: - Prior to the procedure, a History and Physical was performed, and patient medications and allergies were reviewed. The risks and benefits of the procedure and the sedation options and risks were discussed with the patient. All questions were answered and informed consent was obtained. Patient identification and proposed procedure were verified by the physician. Mental Status Examination: normal. Prophylactic Antibiotics: The patient does not require prophylactic antibiotics. Prior Anticoagulants: The patient has taken no previous anticoagulant or antiplatelet agents. After reviewing the risks and benefits, the patient was deemed in satisfactory condition to undergo the procedure. The anesthesia plan was to use monitored anesthesia care (MAC). Immediately prior to administration of medications, the patient was re-assessed for adequacy to receive sedatives. The heart rate, respiratory rate, oxygen saturations, blood pressure, adequacy of pulmonary ventilation, and response to care were monitored throughout the procedure. The physical status of the patient was re-assessed after the procedure. After obtaining informed consent, the endoscope was passed under direct vision. Throughout the procedure, the patient's blood pressure, pulse, and oxygen saturations were monitored continuously. The Colonoscope was introduced through the mouth, and advanced to the second part of duodenum. Scope In: 7:07:33 AM Scope Out: 7:15:15 AM Total Procedure Duration Time 0 hours 7 minutes 42 seconds Findings: A moderate Schatzki ring was found in the lower third of the esophagus. A guidewire was placed and the scope was withdrawn. Dilation was performed with a Savary dilator with no resistance at 45 Fr. The dilation site was examined following endoscope reinsertion and showed moderate improvement in luminal narrowing. Estimated blood loss was minimal. The Z-line was irregular and was found 40 cm from the incisors. Biopsies were taken with a cold forceps for histology. Verification of patient identification for the specimen was done. Estimated blood loss was minimal. Diffuse moderate inflammation characterized by erosions and friability was found in the gastric body. Biopsies were taken with a cold forceps for histology. Verification of patient identification for the specimen was done. Estimated blood loss was minimal. A single 5 mm sessile polyp with no stigmata of recent bleeding was found in the gastric body. The polyp was removed with a cold snare. Resection and retrieval were complete. Verification of patient identification for the specimen was done. Estimated blood loss was minimal. The second portion of the duodenum was normal. Impression: - Moderate Schatzki ring. Dilated. - Z-line irregular, 40 cm from the incisors. Biopsied. - Gastritis. Biopsied. - A single gastric polyp. Resected and retrieved. - Normal second portion of the duodenum. Recommendation: - Discharge patient to home. - Resume previous diet. - Continue present medications. - Await pathology results. - Repeat upper endoscopy in 1 year for surveillance. Procedure Code(s): --- Professional --- 87114, Esophagogastroduodenoscopy, flexible, transoral; with removal of tumor(s), polyp(s), or other lesion(s) by snare technique 22876, Esophagogastroduodenoscopy, flexible, transoral; with insertion of guide wire followed by passage of dilator(s) through esophagus over guide wire 61584, 59,51, Esophagogastroduodenoscopy, flexible, transoral; with biopsy, single or multiple CPT copyright 2017 [employer]. All rights reserved. The codes documented in this report are preliminary and upon transitional nurse review may be revised to meet current compliance requirements. Catracho Nunn DO 11/21/2022 7:45:19 AM This report has been signed electronically. Number of Addenda: 0 Note Initiated On: 11/21/2022 6:57 AM
--- NOTE | 2022-11-21 07:46 | EKG12_ITS ---
Test Reason : V TACH Blood Pressure : / mmHG Vent. Rate : 061 BPM Atrial Rate : 061 BPM P-R Int : 196 ms QRS Dur : 116 ms QT Int : 444 ms P-R-T Axes : 053 -11 041 degrees QTc Int : 446 ms Normal sinus rhythm Incomplete left bundle branch block Borderline ECG Confirmed by HUGH SILVA, JAE ([id number]), scientific editor JIGAR ANGELO ([id number]) on 11/26/2022 11:12:31 AM Referred By: Charlene Dennison Confirmed By:NIC REESE MD
[2022-11-21 07:50] VITALS: BP 121/55; BP 146/94; PULSE 64; RESP 16; O2SAT 94
--- NOTE | 2022-11-21 07:50 | OP.COLON_ITS ---
Patient Name: Fran Ferris Procedure Date: 11/21/2022 7:15 AM Date of : 1960 Age: 62 Procedure: Colonoscopy Indications: Follow-up for history of adenomatous polyps in the colon Providers: Catracho Nunn DO Referring MD: Charlene Dennison Medicines: Monitored Anesthesia Care Patient Profile: This is a 62 year old male. Refer to note in patient chart for documentation of history and physical. Patient has symptoms of chronic epigastric abdominal pain and dysphagia with both liquids and solids. Last Colonoscopy: within the past 3 years. Complications: No immediate complications. Procedure: Pre-Anesthesia Assessment: - Prior to the procedure, a History and Physical was performed, and patient medications and allergies were reviewed. The risks and benefits of the procedure and the sedation options and risks were discussed with the patient. All questions were answered and informed consent was obtained. Patient identification and proposed procedure were verified by the physician. Mental Status Examination: normal. Prophylactic Antibiotics: The patient does not require prophylactic antibiotics. Prior Anticoagulants: The patient has taken no previous anticoagulant or antiplatelet agents. After reviewing the risks and benefits, the patient was deemed in satisfactory condition to undergo the procedure. The anesthesia plan was to use monitored anesthesia care (MAC). Immediately prior to administration of medications, the patient was re-assessed for adequacy to receive sedatives. The heart rate, respiratory rate, oxygen saturations, blood pressure, adequacy of pulmonary ventilation, and response to care were monitored throughout the procedure. The physical status of the patient was re-assessed after the procedure. After I obtained informed consent, the scope was passed under direct vision. Throughout the procedure, the patient's blood pressure, pulse, and oxygen saturations were monitored continuously. The Colonoscope was introduced through the anus and advanced to the cecum, identified by appendiceal orifice and ileocecal valve. The ileocecal valve, appendiceal orifice, and rectum were photographed. Moderate Sedation: Moderate (conscious) sedation was personally administered by an anesthesia professional. The following parameters were monitored: oxygen saturation, heart rate, blood pressure, respiratory rate, EKG, adequacy of pulmonary ventilation, and response to care. Scope In: 7:18:42 AM Scope Withdrawal Time 0 hours 12 minutes 45 seconds Scope Out: 7:33:50 AM Total Procedure Duration Time 0 hours 15 minutes 8 seconds Findings: The perianal and digital rectal examinations were normal. A few small-mouthed diverticula were found in the recto-sigmoid colon, sigmoid colon and ascending colon. A 5 mm polyp was found in the sigmoid colon. The polyp was sessile. The polyp was removed with a cold biopsy forceps. Resection and retrieval were complete. Verification of patient identification for the specimen was done. Estimated blood loss was minimal. Impression: - Diverticulosis in the recto-sigmoid colon, in the sigmoid colon and in the ascending colon. - One 5 mm polyp in the sigmoid colon, removed with a cold biopsy forceps. Resected and retrieved. Recommendation: - Repeat colonoscopy in 5 years for surveillance. - Continue present medications. Procedure Code(s): --- Professional --- 01382, Colonoscopy, flexible; with biopsy, single or multiple CPT copyright 2017 [employer]. All rights reserved. The codes documented in this report are preliminary and upon ballistics expert review may be revised to meet current compliance requirements. Catracho Nunn DO 11/21/2022 7:50:19 AM This report has been signed electronically. Number of Addenda: 0 Note Initiated On: 11/21/2022 7:15 AM
--- NOTE | 2022-11-21 07:50 | OP.CCLET_ITS ---
11/21/2022 Charlene Dennison Re : Colonoscopy procedure for Fran Ferris Dear Juma This procedure was performed on Monday, November 21, 2022. My impressions and recommendations are as follows: Impressions : - Diverticulosis in the recto-sigmoid colon, in the sigmoid colon and in the ascending colon. - One 5 mm polyp in the sigmoid colon, removed with a cold biopsy forceps. Resected and retrieved. Recommendations : - Repeat colonoscopy in 5 years for surveillance. - Continue present medications. My findings are described in the full procedure note, which is enclosed. If I can be of further assistance, please feel free to contact me at . Sincerely, Catracho Nunn, 11/21/2022 7:50:19 AM This report has been signed electronically.
[2022-11-21 07:55] VITALS: BP 127/69; BP 146/94; PULSE 65; RESP 16; TEMP 37; O2SAT 94
[2022-11-21 08:21] VITALS: BP 146/94
[2022-11-21 09:32] LABS: International Normalized Ratio 1.1; Prothrombin Time (Protime)PT. 14.1 SECONDS (11.7-14.9)
[2022-11-21 09:53] LABS: ALB/GLOB Ratio 0.9 RATIO (0.9-2.4); AST(SGOT) 15 U/L (15-37); Alanine Aminotransfer ALT/SGPT 38 U/L (16-61); Albumin, Serum 3.3 g/dL (3.2-5.0); Alkaline Phosphatase 73 U/L (45-117); Anion Gap 7 (5-15); BUN 11 mg/dL (7-18); BUN/Creat Ratio 11.6 RATIO (10-20); Calcium,Total 9.4 mg/dL (8.5-10.1); Chloride 101 mmol/L (98-107); Creatinine, Serum 0.95 mg/dL (0.70-1.30); EST Glomerular Filtration Rate 86 mL/min (>60); Est Glom Filt Rate - Afr Amer 105 mL/min (>60); Estimated Creatinine Clearance 93.45 ml/min; Ferritin 156 ng/mL (26-388); Globulin 3.8 g/dL (2.2-4.2); Glucose 176 mg/dL (74-106); Potassium 3.6 mmol/L (3.5-5.1); Protein, Total 7.1 g/dL (6.4-8.2); Sodium Level 137 mmol/L (136-145)
[2022-11-21 10:04] LABS: Erythrocyte Sedimentation Rate 23 mm/hr (0-20)
[2022-11-21 10:06] LABS: Absolute Lymphocyte Count 1.48 X10^3/uL (0.83-4.51); Absolute Neutrophil Count 8.3 X10^3/uL (2.0-7.7); Basophil# 0.06 X10^3/uL; Basophil% 0.5 % (0-1); Eosinophil# 0.51 X10^3/uL; Eosinophils% 4.5 % (0-5); Hematocrit 42.8 % (40-54); Hemoglobin 14.2 g/dL (13.0-16.5); Lymphocyte # 1.48 X10^3/ul (0.83-4.51); Mean Corp Hgb Conc 33.2 g/dL (32-36); Mean Corpuscular Hgb 30.5 pg (27.0-32.0); Mean Corpuscular Volume 91.8 fL (80-94); Mean Platelet Vol. 8.9 fl (6.2-12.0); Monocyte# 0.94 X10^3/uL; Monocyte% 8.3 % (0-10); NRBC Flagged by Analyzer 0 % (0-5); Neutrophil # 8.33 X10^3/uL (2.7-7.7); Neutrophil % 73.2 % (47-70); Platelet Count 302 K/mm3 (150-450); RBC Distribution Width CV 13.2 % (11.6-14.6); RBC Distribution Width SD 44.7 fl (35.1-43.9); Red Blood Count 4.66 M/mm3 (4.6-6.2); White Blood Count 11.4 K/mm3 (4.4-11.0)
[2022-11-22 15:08] LABS: Endomysial Antibody IgA Negative (Negative)
[2022-11-23 19:31] LABS: Anti-Mitochondrial AB <20.0 Units (0.0-20.0); Immunoglobulin A 203 mg/dL (90-386); t-Transglutaminase IgA <2 U/mL (0-3)
[2022-11-25 13:06] LABS: Angiotensin Convert Enzyme < 15 U/L (14-82); Ceruloplasmin 26.7 mg/dL (16.0-31.0); Cytoplasmic Ab (C-ANCA) <1:20 titer (Neg:<1:20); HEPATITIS B SURFACE AG Negative (Negative); Haptoglobin 338 mg/dL (29-370); Hep C Antibodies <0.1 s/co ratio (0.0-0.9); Hepatitis A IgM Antibody Negative (Negative); Hepatitis B Core AB IgM Negative (Negative); Immunoglobulin A 204 mg/dL (90-386); Immunoglobulin E 22 IU/mL (6-495); Immunoglobulin G 779 mg/dL (603-1613)
[2022-11-25 14:07] LABS: Anti-Smooth Muscle ABS 4 Units (0-19); Copper, Serum or Plasma 103 ug/dL (69-132); Gastrin, Serum 890 pg/mL (0-115); Immunoglobulin M 58 mg/dL (20-172); Perinuclear Ab (P-ANCA) <1:20 titer (Neg:<1:20)
== END 2022-11-21 08:31 | disposition home or self-care (01) ==
LOC: EN 05:53 → AC 05:55
PROVIDERS: PCP Internal Medicine; Referring Provider Internal Medicine; Visit Provider Internal Medicine Gastroenterology
PROC: 0DJD8ZZ Inspection of Lower Intestinal Tract, Via Natural or Artificial Opening Endoscopic (ICD-10-PCS; CPT 45378; principal; 2022-11-21 06:55)
DX: K57.30 Diverticulosis of large intestine without perforation or abscess without bleeding (principal); I42.9 Cardiomyopathy, unspecified; I48.0 Paroxysmal atrial fibrillation; I48.92 Unspecified atrial flutter; E11.9 Type 2 diabetes mellitus without complications; K31.89 Other diseases of stomach and duodenum; K31.7 Polyp of stomach and duodenum; K22.2 Esophageal obstruction; K29.50 Unspecified chronic gastritis without bleeding; K63.5 Polyp of colon; K76.0 Fatty (change of) liver, not elsewhere classified; G47.33 Obstructive sleep apnea (adult) (pediatric); I10 Essential (primary) hypertension; E78.00 Pure hypercholesterolemia, unspecified; F41.9 Anxiety disorder, unspecified; F32.A Depression, unspecified; M10.9 Gout, unspecified; Z79.899 Other long term (current) drug therapy; Z79.84 Long term (current) use of oral hypoglycemic drugs; Z87.891 Personal history of nicotine dependence; Z79.01 Long term (current) use of anticoagulants
CPT/HCPCS: 45380; 43251; 43248; 43239; 36415; 80053; 80074; 82164; 82390; 82525; 82728; 82784; 82785; 82941; 82962; 83010; 83516; 85025; 85610; 85652; 86140; 86255; 86256; 88305; 88313; 88342; 93005; J7120; J2405

== ENCOUNTER → 2022-12-11 | Outpatient (CLI) | payer MEDICARE, OTHER, SELFPAY ==
--- NOTE | 2022-12-11 09:41 | US_ITS ---
STUDY: ABDOMINAL ULTRASOUND - RIGHT UPPER QUADRANT REASON FOR VISIT: Male, 62 years old fatty liver disease TECHNIQUE: Ultrasound evaluation of the right upper quadrant was performed with real-time and static wagner-scale imaging. TECHNICAL QUALITY: Adequate. COMPARISON: None. FINDINGS: Liver: The liver is enlarged and measures 21.4 cm. There is increased echogenicity consistent with fatty infiltration. The bile ducts are within normal limits. There is hepatic color flow. The direction of portal flow is hepatopetal. There is no demonstrated mass lesion. Gallbladder: Normal distended gallbladder. The gallbladder wall measures 1.2 mm. There is a negative sonographic Cordoba''s sign. There is no pericholecystic fluid. There are no gallstones. Common Bile Duct (C.B.D.): The common bile duct measures 5.3 mm. Pancreas: Normal size of the head, body and tail of the pancreas. There is increased echogenicity of the pancreas. There is no demonstrated pancreatic mass or cyst. Right Kidney: Normal size of the right kidney. The right kidney measures 12.8 cm x 5.8 cm x 5.7 cm. Normal renal cortex. The right cortex measures 1.7 cm. There is no demonstrated renal mass or cyst. There is no right hydronephrosis. US/Abdomen Limited IMPRESSION: Hepatomegaly and fatty infiltration of the liver. Electronically Signed: Hood Thornton MD at 15:35 EST ,
--- NOTE | 2022-12-11 09:41 | US_ITS ---
STUDY: ABDOMINAL ULTRASOUND - ELASTOGRAPHY REASON FOR VISIT: Male, 62 years old. Hepatomegaly and fatty infiltration of the liver. TECHNIQUE: Liver stiffness measurements were obtained on a [employer] RS 85 ultrasound machine using a CA 1-7 probe following the SRU guidelines. 3 measurements were obtained using a 2-D-SWE method. The IQR/M was 17 % suggesting a quality data set. TECHNICAL QUALITY: Adequate. COMPARISON: Comparison is made with prior study done earlier in the day. FINDINGS: Liver: Hepatomegaly and fatty infiltration of the liver. Median liver stiffness measured 6.1 kPa. US/Elastography Parenchyma/Organ IMPRESSION: Liver stiffness measures 6.1 kPa compatible with F2-F3 (Mild to moderate liver fibrosis) Metavir score. Electronically Signed: Hood Thornton MD at 15:36 EST ,
== END | disposition home or self-care (01) ==
LOC: US 09:40
PROVIDERS: PCP Internal Medicine; Referring Provider Internal Medicine Gastroenterology; Visit Provider Internal Medicine Gastroenterology
DX: K76.0 Fatty (change of) liver, not elsewhere classified (principal)
CPT/HCPCS: 76705; 76981

== ENCOUNTER 2023-01-11 19:51 | Emergency (ER) | payer MEDICARE, OTHER, SELFPAY ==
[2023-01-11 19:52] VITALS: BP 154/102; PULSE 128; RESP 19; TEMP 37.1; O2SAT 95; BMI 44.9
[2023-01-11 20:24] VITALS: BP 112/81; PULSE 116
--- NOTE | 2023-01-11 20:30 | EKG12_ITS ---
Test Reason : A-FIB Blood Pressure : / mmHG Vent. Rate : 114 BPM Atrial Rate : 228 BPM P-R Int : 000 ms QRS Dur : 154 ms QT Int : 370 ms P-R-T Axes : 000 051 -17 degrees QTc Int : 509 ms Sinus tachycardia Left bundle branch block Abnormal ECG Confirmed by CAMERON SILVA, TY ([id number]), publishing editor JIGAR ANGELO ([id number]) on 01/15/2023 8:59:42 AM Referred By: Confirmed By:TY BARNES MD
--- NOTE | 2023-01-11 20:32 | EX.ED.DYSGE1 ---
HPI History of Present Illness Chief Complaint: Palpitations Informant: patient Onset/Context/Timing Onset: Today Narrative Narrative: Patient presents secondary to palpitations. He has a history of paroxysmal A-fib and felt himself go into A-fib today. He has not been able to get himself to convert out. He does report having diarrhea all day today and is not sure if his arrhythmia is secondary to dehydration or electrolyte abnormality. He denies chest pain. [facility] Medical History Alcohol use Anxiety Anxiety disorder Atrial fibrillation Atrial flutter with rapid ventricular response Back pain BiPAP (biphasic positive airway pressure) dependence Cardiology follow-up encounter Cardiomyopathy Chronic GERD Depression Diabetes Diabetes mellitus type 2 in obese Dietary restriction Difficulty swallowing Elevated alkaline phosphatase level Erectile dysfunction Family history of colon cancer Fatty liver Former smoker Gastric reflux Genetic carrier of other disease GI bleed Glaucoma Gout High cholesterol History of atrial fibrillation History of diverticulitis History of left heart catheterization (LHC) (~05/29/22) History of pain when walking History of steroid therapy History of stress test Hyperlipidemia Hypertension Hypertension Obesity SHARRI (obstructive sleep apnea) Osteoarthritis Palpitations Panic disorder with agoraphobia Paroxysmal atrial flutter Restless legs Shortness of breath on exertion Systolic dysfunction Testosterone deficiency Vitamin D deficiency Home Medications allopurinol 100 mg tablet 100 mg PO DAILY 05/15/14 [History Last Taken 11/21/22] alprazolam 0.5 mg tablet 0.5 mg PO TID anxiety 01/09/19 [History Last Taken 11/21/22] atorvastatin 40 mg tablet 40 mg PO QHS cholestrol 01/09/19 [History Last Taken 11/20/22] sertraline 50 mg tablet 50 mg PO DAILY depression 01/09/19 [History Last Taken 11/21/22] carvedilol 6.25 mg tablet 6.25 mg PO BID #180 tabs 02/11/19 [Rx Last Taken 11/21/22] rivaroxaban 20 mg tablet (Xarelto) 20 mg PO QDAY #90 tabs 02/17/20 [Rx Last Taken 11/17/22] ergocalciferol (vitamin D2) 50,000 unit tablet 50,000 unit PO QMONTH 05/14/21 [History Last Taken 05/29/22] metformin 500 mg tablet 500 mg PO BID 05/14/21 [History Last Taken 11/19/22] diltiazem HCl 120 mg capsule,extended release 24 hr 120 mg PO BID 02/19/22 [History Last Taken 11/21/22] lisinopril 20 mg tablet 20 mg PO QPM 05/18/22 [History Last Taken 11/21/22] lisinopril 20 mg-hydrochlorothiazide 12.5 mg tablet 1 tab PO QAM 05/18/22 [History Last Taken 05/29/22] vitamin B complex (B Complex-Vitamin B12 tablet) 1 tab PO DAILY 10/09/22 [History Last Taken 11/20/22] testosterone 1.62 % (40.5 mg/2.5 gram) transdermal gel packet (AndroGel) 2 packet transdermal DAILY 11/20/22 [History Last Taken 11/21/22] ascorbic acid (vitamin C) 500 mg tablet (Vitamin C) 500 mg PO DAILY 01/11/23 [History Last Taken Unknown] omeprazole 20 mg capsule,delayed release 20 mg PO DAILY 01/11/23 [History Last Taken Unknown] Allergy/AdvReac Type Severity Reaction Status Date / Time No Known Allergies Allergy Verified 11/20/22 10:46 Family History Mother Cardiomyopathy Cancer thyroid cancer CHF (congestive heart failure) Father CAD (coronary artery disease) Sister COPD (chronic obstructive pulmonary disease) Breast cancer Surgical History History of cardiac catheterization History of cardioversion Hx of colonoscopy with polypectomy S/P arthroscopy of left shoulder s/p right shoulder surgery S/P tonsillectomy Status post left foot surgery Social History household members: spouse Smoking Status: Former smoker how long ago did patient quit smokin alcohol intake: current alcohol intake frequency: 3 or more drinks per day Alcohol type: beer details: occasional substance use type: does not use caffeine: No ROS ROS ED Constitutional Constitutional ED: Denies chills or fever(s) Eyes Eyes: Denies change in vision or discharge from eye(s) ENT ENT ED: Denies discharge from eye(s), rhinorrhea or sore throat Cardiovascular Cardiovascular: Reports palpitations; Denies chest pain Respiratory/Chest Respiratory/Chest: Denies cough or dyspnea Gastrointestinal Gastrointestinal: Reports diarrhea; Denies abdominal pain, nausea or vomiting Genitourinary Genitourinary ED: Denies dysuria Musculoskeletal Musculoskeletal: Denies back pain or extremity pain Integumentary Denies Abrasions or rash Neurologic Neurologic: Denies headache(s) or weakness Psychiatric Psychiatric: Denies anxiety or depression Allergic/Immunologic Allergic/Immunologic ED: Denies lip swelling or urticaria EXAM Physical Exam Const Vital Signs: 01/11/23 19:52 01/11/23 20:24 01/11/23 20:26 Temperature 98.7 F Temperature Source Temporal Pulse Rate 128 H 116 H Respiratory Rate 19 H Respiratory Effort Normal Non-Labored Respiratory Pattern Normal Blood Pressure 154/102 H 112/81 H Blood Pressure Mean 119 91 Pulse Ox 95 Oxygen Delivery Method Room Air 01/11/23 21:31 Temperature Temperature Source Pulse Rate 93 Respiratory Rate Respiratory Effort Respiratory Pattern Blood Pressure 134/71 H Blood Pressure Mean 92 Pulse Ox Oxygen Delivery Method Positive well nourished and well developed General Appearance ED: well developed HEENT Reports normocephalic and head/scalp atraumatic Eyes PERRL and EOMs intact bilaterally Neck supple Chest Wall inspection of chest normal and palpation of chest normal Resp normal respiratory effort and clear to auscultation bilaterally Cardio Rate: tachycardic GI non-tender Auscultation: normoactive bowel sounds Palpation: soft Back/Spine Negative for no CVA tenderness Extremity normal to inspection Neuro oriented x3 and no sensory deficits noted Sensorium / Orientation: alert Motor Exam: strength 5/5 throughout Psych mental status grossly normal Skin no rashes or lesions noted MDM MDM MDM Narrative Medical decision making narrative: Patient placed on piece dyer. EKG obtained to evaluate for arrhythmia/ischemia. Lab work obtained to evaluate for anemia, leukocytosis, electrolyte derangement. Patient given IV fluids given his recent GI illness. 10 mg of IV Cardizem are given for rate control. Lab Data Attestation: I reviewed the patient's lab results. Labs: Laboratory Results - last 24 hr 01/11/23 01/11/23 20:10 20:10 WBC 11.5 H RBC 5.27 Hgb 15.6 Hct 45.8 MCV 86.9 MCH 29.6 MCHC 34.1 RDW Std Deviation 41.4 RDW Coeff of Lon 13.2 Plt Count 296 MPV 8.8 Immature Gran % (Auto) 0.600 Neut % (Auto) 82.8 H Lymph % (Auto) 6.4 L [place] % (Auto) 7.3 Eos % (Auto) 2.6 Baso % (Auto) 0.3 Absolute Neuts (auto) 9.5 H Absolute Lymphs (auto) 0.74 L Nucleated RBC % 0 Sodium 140 Potassium 4.2 Chloride 106 Carbon Dioxide 27.0 Anion Gap 7 BUN 12 Creatinine 0.94 Estim Creat Clear Calc 94.44 Est GFR (MDRD) Af Amer 105 Est GFR (MDRD) Non-Af 87 BUN/Creatinine Ratio 12.8 Glucose 135 H Calcium 9.5 Magnesium 1.5 L Treatment and Re-Evaluation Narrative: CBC reveals white count 11.5 with 82% neutrophils. Chemistry studies largely unremarkable. Potassium is normal at 4.2. Magnesium is slightly low at 1.5. Glucose is 135. Patient's initial EKG reveals atrial flutter with variable block. Ventricular rate is 114. Left bundle branch block pattern noted. Patient converted to sinus rhythm after being given IV Cardizem. He has had brief periods where he will pop back into A-fib/flutter but then returned to sinus rhythm. Repeat EKG at this time is sinus at 91 with left bundle branch block. Test results discussed with patient and at bedside. He will be discharged to home. Return instructions given. Discharge Plan Triage Chief Complaint: Palpitations ED Provider: Celia Khanna Dx/Rx/DC Orders Clinical Impression: Atrial flutter with rapid ventricular response, Gastroenteritis Instructions: ED Atrial Flutter, ED Gastroenteritis, Noninfectious Prescriptions: No Action carvedilol 6.25 mg tablet 6.25 mg PO BID Qty: 180 3RF lisinopril 20 mg tablet 20 mg PO QPM vitamin B complex [B Complex-Vitamin B12] Tablet 1 tab PO DAILY allopurinol 100 MG tablet 100 mg PO DAILY Label Comments: for gout atorvastatin 40 MG tablet 40 mg PO QHS alprazolam 0.5 MG tablet 0.5 mg PO TID sertraline 50 MG tablet 50 mg PO DAILY lisinopril-hydrochlorothiazide 20-12.5 mg tablet 1 tab PO QAM metformin 500 mg Tablet 500 mg PO BID ergocalciferol (vitamin D2) 50,000 unit Tablet 50,000 unit PO QMONTH diltiazem HCl 120 mg capsule,extended release 24hr 120 mg PO BID testosterone [AndroGel] 1.62 % (40.5 mg/2.5 gram) Gel In Packet 2 packet TRANSDERMAL DAILY Rx Instructions: apply 40.5 mg/1 packet over max area of EACH upper arm and shoulder ascorbic acid (vitamin C) [Vitamin C] 500 mg tablet 500 mg PO DAILY omeprazole [Prilosec] 20 mg Capsule,Delayed Release(Dr/Ec) 20 mg PO DAILY Xarelto 20 mg tablet 20 mg PO QDAY Qty: 90 3RF Primary Care Provider: Charlene Dennison Referrals: Charlene Dennison MD [Primary Care Provider] - 3-5 Days if not improving Disposition Disposition: Home, Self Care
[2023-01-11] MEDS: 0.9% Normal Saline 1,000 ML 1000 ML IV (20:43)
[2023-01-11] MEDS: dilTIAZem 25 MG/5 ML Vial 10 MG IV BOLUS (20:47)
[2023-01-11 20:52] LABS: Absolute Lymphocyte Count 0.74 X10^3/uL (0.83-4.51); Absolute Neutrophil Count 9.5 X10^3/uL (2.0-7.7); Basophil# 0.04 X10^3/uL; Basophil% 0.3 % (0-1); Eosinophils% 2.6 % (0-5); Hematocrit 45.8 % (40-54); Hemoglobin 15.6 g/dL (13.0-16.5); Lymphocyte # 0.74 X10^3/ul (0.83-4.51); Lymphocyte % 6.4 % (19-41); Mean Corp Hgb Conc 34.1 g/dL (32-36); Mean Corpuscular Hgb 29.6 pg (27.0-32.0); Mean Corpuscular Volume 86.9 fL (80-94); Mean Platelet Vol. 8.8 fl (6.2-12.0); Monocyte# 0.84 X10^3/uL; Monocyte% 7.3 % (0-10); NRBC Flagged by Analyzer 0 % (0-5); Neutrophil # 9.49 X10^3/uL (2.7-7.7); Neutrophil % 82.8 % (47-70); Platelet Count 296 K/mm3 (150-450); RBC Distribution Width CV 13.2 % (11.6-14.6); RBC Distribution Width SD 41.4 fl (35.1-43.9); Red Blood Count 5.27 M/mm3 (4.6-6.2); White Blood Count 11.5 K/mm3 (4.4-11.0)
[2023-01-11 21:05] LABS: Anion Gap 7 (5-15); BUN 12 mg/dL (7-18); BUN/Creat Ratio 12.8 RATIO (10-20); Calcium,Total 9.5 mg/dL (8.5-10.1); Chloride 106 mmol/L (98-107); Creatinine, Serum 0.94 mg/dL (0.70-1.30); EST Glomerular Filtration Rate 87 mL/min (>60); Est Glom Filt Rate - Afr Amer 105 mL/min (>60); Estimated Creatinine Clearance 94.44 ml/min; Glucose 135 mg/dL (74-106); Magnesium 1.5 mg/dL (1.6-2.6); Potassium 4.2 mmol/L (3.5-5.1); Sodium Level 140 mmol/L (136-145)
[2023-01-11 21:31] VITALS: BP 134/71; PULSE 93
[2023-01-11] MEDS: 0.9% Normal Saline 1,000 ML 150 ML IV (21:50)
--- NOTE | 2023-01-11 22:05 | EKG12_ITS ---
Test Reason : AFIB CONVERSION Blood Pressure : / mmHG Vent. Rate : 091 BPM Atrial Rate : 091 BPM P-R Int : 192 ms QRS Dur : 152 ms QT Int : 396 ms P-R-T Axes : 046 064 -04 degrees QTc Int : 487 ms Normal sinus rhythm Left bundle branch block Abnormal ECG Confirmed by CAMERON SILVA, TY ([id number]), editor dictionary JIGAR ANGELO ([id number]) on 01/15/2023 8:59:58 AM Referred By: Confirmed By:TY BARNES MD
[2023-01-11 22:44] VITALS: BP 131/74; PULSE 90; RESP 18; O2SAT 96
== END 2023-01-11 22:45 | disposition home or self-care (01) ==
PROVIDERS: Emergency Provider Emergency Medicine; PCP Internal Medicine; Visit Provider Emergency Medicine
DX: I48.92 Unspecified atrial flutter (principal); I48.0 Paroxysmal atrial fibrillation; E11.9 Type 2 diabetes mellitus without complications; K52.9 Noninfective gastroenteritis and colitis, unspecified; Z87.891 Personal history of nicotine dependence
CPT/HCPCS: 80048; 83735; 85025; 93005; 96361; 96374; 99284; J7030

== ENCOUNTER 2025-04-20 06:07 | Emergency (ER) | payer MEDICARE, OTHER, SELFPAY ==
[2025-04-20] VITALS (12 sets, daily range): BP systolic 121–144; BP diastolic 71–95; PULSE 77–125; RESP 18–76; TEMP 36.2–36.6; O2SAT 9–100; BMI 50.5
--- NOTE | 2025-04-20 06:13 | EDS_ITS ---
HPI <Dr. Parker Gamez, DO - Last Filed: 04/23/25 15:27> History of Present Illness Chief Complaint: Palpitations [facility] <Dr. Parker Gamez, DO - Last Filed: 04/23/25 15:27> [facility] Medical History (Updated 04/20/25 @ 09:[address] Tripp Vogel MD) Depression Anxiety Alcohol use History of steroid therapy Diabetes Fatty liver High cholesterol Restless legs Back pain Dietary restriction Difficulty swallowing History of diverticulitis Gastric reflux Former smoker BiPAP (biphasic positive airway pressure) dependence Shortness of breath on exertion History of pain when walking History of stress test Hypertension Cardiology follow-up encounter Elevated alkaline phosphatase level Testosterone deficiency Vitamin D deficiency Panic disorder with agoraphobia Glaucoma Chronic GERD Gout Osteoarthritis Erectile dysfunction Genetic carrier of other disease Family history of colon cancer GI bleed History of left heart catheterization (LHC) (~05/29/22) SHARRI (obstructive sleep apnea) Atrial flutter with rapid ventricular response Paroxysmal atrial flutter Systolic dysfunction Cardiomyopathy Hyperlipidemia Palpitations Diabetes mellitus type 2 in obese Anxiety disorder Obesity Home Medications ?Medication ?Instructions ?Recorded ?Last Taken ?Type allopurinol 100 mg tablet 100 mg PO DAILY 05/15/1402/09 History alprazolam 0.5 mg tablet 0.5 mg PO TID anxiety 04/20/25 History atorvastatin 40 mg tablet 40 mg PO QHS cholestrol 12/2004/19/25 History sertraline 50 mg tablet 50 mg PO DAILY depression 04/20/25 History rivaroxaban 20 mg tablet (Xarelto) 20 mg PO QDAY #90 t abs 02/17/20 04/19/25 Rx ergocalciferol (vitamin D2) 50,000 50,000 unit PO QMON TH 05/14/21 05/29/22 History unit tablet metformin 500 mg tablet 500 mg PO BID 05/14/2104/20 History diltiazem HCl 120 mg 120 mg PO BID 02/19/2204/20 History capsule,extended release 24 hr lisinopril 20 mg tablet 20 mg PO QPM 05/18/22 History lisinopril 20 1 tab PO QAM 05/18/22 History mg-hydrochlorothiazide 12.5 mg tablet vitamin B complex (B 1 tab PO DAILY 10/09/2202/09 History Complex-Vitamin B12 tablet) ascorbic acid (vitamin C) 500 mg 500 mg PO DAILY 01/1104/19/25 History tablet (Vitamin C) omeprazole 20 mg capsule,delayed 20 mg PO DAILY 04/20/25 History release testosterone 40.5 mg topical QAM 03/01/25 04/19/25 History carvedilol 6.25 mg tablet 9.75 mg PO BID 04/20/2502/09 History vitamin E mixed 1,000 unit capsule 1,000 unit PO DAILY 04/20/25 04/19/25 History Allergy/AdvReac Type Severity Reaction Status Date / Time No Known Allergies Allergy Verified 04/20/25 06:13 Family History Mother Cardiomyopathy Cancer thyroid cancer CHF (congestive heart failure) Father CAD (coronary artery disease) Sister COPD (chronic obstructive pulmonary disease) Breast cancer Surgical History History of cardiac catheterization Hx of colonoscopy with polypectomy S/P arthroscopy of left shoulder s/p right shoulder surgery Status post left foot surgery S/P tonsillectomy History of cardioversion Social History household members: spouse Smoking Status: Former smoker how long ago did patient quit smokin alcohol intake: current alcohol intake frequency: 3 or more drinks per day Alcohol type: beer details: occasional substance use type: does not use caffeine: No EXAM <Dr. Parker Gamez, DO - Last Filed: 04/23/25 15:27> Physical Exam Const Vital Signs: 04/20/25 06:08 04/20/25 06:10 04/20/25 06:16 Temperature 98 F Temperature Source Oral Pulse Rate 125 H Pulse Rate [1 (Initial Baseline)] Pulse Rate [3] Respiratory Rate 18 Respiratory Rate [1 (Initial Baseline)] Respiratory Rate [3] Respiratory Pattern Normal Blood Pressure 121/91 H Blood Pressure [1 (Initial Baseline)] Blood Pressure [2] Blood Pressure [3] Blood Pressure Mean 101 Baseline BP Pulse Ox 95 98 Oxygen Delivery Method Room Air Room Air Oxygen Delivery Method [1 (Initial Baseline)] Oxygen Delivery Method [3] Oxygen Flow Rate (L/min) Oxygen Flow Rate (L/min) [1 (Initial Baseline)] Oxygen Flow Rate (L/min) [3] EtCo2 - Document during CPR and with ROSC EtCo2 - Document during CPR and with ROSC [1 (Initial Baseline)] EtCo2 - Document during CPR and with ROSC [2] EtCo2 - Document during CPR and with ROSC [3] 04/20/25 07:07 04/20/25 08:00 04/20/25 09:00 Temperature Temperature Source Pulse Rate 125 H 124 H 123 H Pulse Rate [1 (Initial Baseline)] Pulse Rate [3] Respiratory Rate 20 H 18 18 Respiratory Rate [1 (Initial Baseline)] Respiratory Rate [3] Respiratory Pattern Blood Pressure 137/75 H 133/86 H 139/85 H Blood Pressure [1 (Initial Baseline)] Blood Pressure [2] Blood Pressure [3] Blood Pressure Mean 95 101 103 Baseline BP Pulse Ox 95 95 97 Oxygen Delivery Method Room Air Oxygen Delivery Method [1 (Initial Baseline)] Oxygen Delivery Method [3] Oxygen Flow Rate (L/min) Oxygen Flow Rate (L/min) [1 (Initial Baseline)] Oxygen Flow Rate (L/min) [3] EtCo2 - Document during CPR and with ROSC EtCo2 - Document during CPR and with ROSC [1 (Initial Baseline)] EtCo2 - Document during CPR and with ROSC [2] EtCo2 - Document during CPR and with ROSC [3] 04/20/25 09:41 04/20/25 09:41 04/20/25 09:46 Temperature Temperature Source Pulse Rate 124 H Pulse Rate [1 (Initial Baseline)] 124 H Pulse Rate [3] 77 Respiratory Rate 19 H Respiratory Rate [1 (Initial Baseline)] 22 H Respiratory Rate [3] 76 H Respiratory Pattern Blood Pressure 144/95 H Blood Pressure [1 (Initial Baseline)] 140/89 H Blood Pressure [2] 140/89 H Blood Pressure [3] 138/95 H Blood Pressure Mean Baseline BP 144/95 Pulse Ox 99 Oxygen Delivery Method Nasal Cannula Oxygen Delivery Method [1 (Initial Baseline)] Nasal Cannula Oxygen Delivery Method [3] Nasal Cannula Oxygen Flow Rate (L/min) 5 Oxygen Flow Rate (L/min) [1 (Initial Baseline)] 6 Oxygen Flow Rate (L/min) [3] 6 EtCo2 - Document during CPR and with ROSC 42 42 EtCo2 - Document during CPR and with ROSC [1 (Initial Baseline)] 44 EtCo2 - Document during CPR and with ROSC [2] 40 EtCo2 - Document during CPR and with ROSC [3] 42 04/20/25 09:53 04/20/25 09:57 04/20/25 10:00 Temperature Temperature Source Pulse Rate 77 77 80 Pulse Rate [1 (Initial Baseline)] Pulse Rate [3] Respiratory Rate 23 H 28 H 23 H Respiratory Rate [1 (Initial Baseline)] Respiratory Rate [3] Respiratory Pattern Blood Pressure 138/95 H 137/74 H 140/77 H Blood Pressure [1 (Initial Baseline)] Blood Pressure [2] Blood Pressure [3] Blood Pressure Mean 98 Baseline BP Pulse Ox 99 95 96 Oxygen Delivery Method Room Air Room Air Oxygen Delivery Method [1 (Initial Baseline)] Oxygen Delivery Method [3] Oxygen Flow Rate (L/min) Oxygen Flow Rate (L/min) [1 (Initial Baseline)] Oxygen Flow Rate (L/min) [3] EtCo2 - Document during CPR and with ROSC 40 39 EtCo2 - Document during CPR and with ROSC [1 (Initial Baseline)] EtCo2 - Document during CPR and with ROSC [2] EtCo2 - Document during CPR and with ROSC [3] 04/20/25 10:01 Temperature Temperature Source Pulse Rate 79 Pulse Rate [1 (Initial Baseline)] Pulse Rate [3] Respiratory Rate 20 H Respiratory Rate [1 (Initial Baseline)] Respiratory Rate [3] Respiratory Pattern Blood Pressure 140/77 H Blood Pressure [1 (Initial Baseline)] Blood Pressure [2] Blood Pressure [3] Blood Pressure Mean Baseline BP Pulse Ox 96 Oxygen Delivery Method Room Air Oxygen Delivery Method [1 (Initial Baseline)] Oxygen Delivery Method [3] Oxygen Flow Rate (L/min) Oxygen Flow Rate (L/min) [1 (Initial Baseline)] Oxygen Flow Rate (L/min) [3] EtCo2 - Document during CPR and with ROSC 39 EtCo2 - Document during CPR and with ROSC [1 (Initial Baseline)] EtCo2 - Document during CPR and with ROSC [2] EtCo2 - Document during CPR and with ROSC [3] <Dr. Tripp Vogel MD - Last Filed: 04/20/25 10:13> Physical Exam Const Vital Signs: 04/20/25 06:08 04/20/25 06:10 04/20/25 06:16 Temperature 98 F Temperature Source Oral Pulse Rate 125 H Pulse Rate [1 (Initial Baseline)] Pulse Rate [3] Respiratory Rate 18 Respiratory Rate [1 (Initial Baseline)] Respiratory Rate [3] Respiratory Pattern Normal Blood Pressure 121/91 H Blood Pressure [1 (Initial Baseline)] Blood Pressure [2] Blood Pressure [3] Blood Pressure Mean 101 Baseline BP Pulse Ox 95 98 Oxygen Delivery Method Room Air Room Air Oxygen Delivery Method [1 (Initial Baseline)] Oxygen Delivery Method [3] Oxygen Flow Rate (L/min) Oxygen Flow Rate (L/min) [1 (Initial Baseline)] Oxygen Flow Rate (L/min) [3] EtCo2 - Document during CPR and with ROSC EtCo2 - Document during CPR and with ROSC [1 (Initial Baseline)] EtCo2 - Document during CPR and with ROSC [2] EtCo2 - Document during CPR and with ROSC [3] 04/20/25 07:07 04/20/25 08:00 04/20/25 09:00 Temperature Temperature Source Pulse Rate 125 H 124 H 123 H Pulse Rate [1 (Initial Baseline)] Pulse Rate [3] Respiratory Rate 20 H 18 18 Respiratory Rate [1 (Initial Baseline)] Respiratory Rate [3] Respiratory Pattern Blood Pressure 137/75 H 133/86 H 139/85 H Blood Pressure [1 (Initial Baseline)] Blood Pressure [2] Blood Pressure [3] Blood Pressure Mean 95 101 103 Baseline BP Pulse Ox 95 95 97 Oxygen Delivery Method Room Air Oxygen Delivery Method [1 (Initial Baseline)] Oxygen Delivery Method [3] Oxygen Flow Rate (L/min) Oxygen Flow Rate (L/min) [1 (Initial Baseline)] Oxygen Flow Rate (L/min) [3] EtCo2 - Document during CPR and with ROSC EtCo2 - Document during CPR and with ROSC [1 (Initial Baseline)] EtCo2 - Document during CPR and with ROSC [2] EtCo2 - Document during CPR and with ROSC [3] 04/20/25 09:41 04/20/25 09:41 04/20/25 09:46 Temperature Temperature Source Pulse Rate 124 H Pulse Rate [1 (Initial Baseline)] 124 H Pulse Rate [3] 77 Respiratory Rate 19 H Respiratory Rate [1 (Initial Baseline)] 22 H Respiratory Rate [3] 76 H Respiratory Pattern Blood Pressure 144/95 H Blood Pressure [1 (Initial Baseline)] 140/89 H Blood Pressure [2] 140/89 H Blood Pressure [3] 138/95 H Blood Pressure Mean Baseline BP 144/95 Pulse Ox 99 Oxygen Delivery Method Nasal Cannula Oxygen Delivery Method [1 (Initial Baseline)] Nasal Cannula Oxygen Delivery Method [3] Nasal Cannula Oxygen Flow Rate (L/min) 5 Oxygen Flow Rate (L/min) [1 (Initial Baseline)] 6 Oxygen Flow Rate (L/min) [3] 6 EtCo2 - Document during CPR and with ROSC 42 42 EtCo2 - Document during CPR and with ROSC [1 (Initial Baseline)] 44 EtCo2 - Document during CPR and with ROSC [2] 40 EtCo2 - Document during CPR and with ROSC [3] 42 04/20/25 09:53 04/20/25 09:57 04/20/25 10:00 Temperature Temperature Source Pulse Rate 77 77 80 Pulse Rate [1 (Initial Baseline)] Pulse Rate [3] Respiratory Rate 23 H 28 H 23 H Respiratory Rate [1 (Initial Baseline)] Respiratory Rate [3] Respiratory Pattern Blood Pressure 138/95 H 137/74 H 140/77 H Blood Pressure [1 (Initial Baseline)] Blood Pressure [2] Blood Pressure [3] Blood Pressure Mean 98 Baseline BP Pulse Ox 99 95 96 Oxygen Delivery Method Room Air Room Air Oxygen Delivery Method [1 (Initial Baseline)] Oxygen Delivery Method [3] Oxygen Flow Rate (L/min) Oxygen Flow Rate (L/min) [1 (Initial Baseline)] Oxygen Flow Rate (L/min) [3] EtCo2 - Document during CPR and with ROSC 40 39 EtCo2 - Document during CPR and with ROSC [1 (Initial Baseline)] EtCo2 - Document during CPR and with ROSC [2] EtCo2 - Document during CPR and with ROSC [3] 04/20/25 10:01 Temperature Temperature Source Pulse Rate 79 Pulse Rate [1 (Initial Baseline)] Pulse Rate [3] Respiratory Rate 20 H Respiratory Rate [1 (Initial Baseline)] Respiratory Rate [3] Respiratory Pattern Blood Pressure 140/77 H Blood Pressure [1 (Initial Baseline)] Blood Pressure [2] Blood Pressure [3] Blood Pressure Mean Baseline BP Pulse Ox 96 Oxygen Delivery Method Room Air Oxygen Delivery Method [1 (Initial Baseline)] Oxygen Delivery Method [3] Oxygen Flow Rate (L/min) Oxygen Flow Rate (L/min) [1 (Initial Baseline)] Oxygen Flow Rate (L/min) [3] EtCo2 - Document during CPR and with ROSC 39 EtCo2 - Document during CPR and with ROSC [1 (Initial Baseline)] EtCo2 - Document during CPR and with ROSC [2] EtCo2 - Document during CPR and with ROSC [3] [facility] <Dr. Parker Gamez, DO - Last Filed: 04/23/25 15:27> [facility] Narrative Medical decision making narrative: HISTORY OF PRESENT ILLNESS: Chief complaint: Palpitations, in A-fib 64-year-old male history of A-fib on Xarelto, hypertension, hyperlipidemia, nonalcoholic fatty liver, SHARRI on BiPAP, cardiomyopathy, type 2 diabetes, anxiety and history of alcohol REVIEW OF SYSTEMS: Pertinent positives: Palpitations, diffuse weakness and fatigue Pertinent negatives: Chest pain, shortness of breath, vomiting PHYSICAL EXAM: Nursing triage notes reviewed, Vital signs reviewed Constitutional: please see [facility] HENT: MMM Eyes: Pupils equal round and reactive to light, Extraocular muscles intact Neck: No stridor, no JVD, full neck ROM Lungs: Clear to auscultation, No wheezing or rales. No increased work of breathing, no conversational dyspnea, no accessory muscle use, no nasal flaring. No respiratory distress noted Heart: Regular rate and rhythm, No murmurs, No rubs and No gallops, 2+ distal pulses (radial, femoral, posterior tibial) in all extremities Abdomen: Soft, there is no tenderness, rigidity, rebound or guarding, no obvious peritoneal signs, no palpable pulsatile abdominal masses, no auscultated abdominal bruit : No CVAT Extremities: No edema Neuro: No new focal neurological deficits, cranial nerves II through XII intact, 5/5 strength in all present extremities. Intact sensation to light touch in all present extremities, 2+ reflexes bilateral patella tendons. Skin: No rash or lesions noted MEDICAL DECISION MAKING: Chief Complaint: please see HPI External records reviewed: Reviewed prior ED notes. Reviewed prior cardiovascular testing: Reviewed prior heart cath from 2021 which recommended risk modification medical therapy. Reviewed prior echocardiogram from 2021 showed ejection fraction 65% Factors affecting care: As per HPI Social determinants of health: Alcohol History obtained from others: Consults: none [facility] Narrative: Patient was initially hemodynamically stable, tachycardic otherwise afebrile and nontoxic-appearing. Exam with fast heart rate otherwise no irregularly irregular rhythms I considered the following differential diagnosis: Arrhythmia, anemia, electro disturbance, ACS, PE ALL IMAGES (IF OBTAINED) HAVE BEEN PERSONALLY REVIEWED AND INTERPRETED BY MYSELF. Initial EKG was most consistent with sinus tachycardia rate of 127, prolonged QT interval, left axis deviation, no obvious STEMI. I have personally reviewed the patient's chest x-ray. Chest x-ray is unremarkab le for pulmonary edema, pneumothorax, pneumonia or focal cardiopulmonary abnormality. CBC with leukocytosis (indicative of systemic inflammation), similar to prior studies, no anemia or thrombocytopenia noted Awaiting additional labs Initially chose resuscitate the patient with 500 cc bolus and 10 mg IV Cardizem The patient and/or family, caregivers express understanding. The patient and/or family, caregivers agrees with the plan. Shared decision making: I will have a discussion with the patient and or visitors regarding risk/benefits of further testing or admission. They will be made aware of of the risk/benefits inherent in this decision they will be given the opportunity to voice understanding. Total critical care time today provided was at least 0 minutes. This excludes separately billable procedures. Critical care time (if documented) is secondary to the patient having high probability of clinically significant/life threatening deterioration in the patient's condition which required my urgent intervention. Impression: 1. Palpitation 2. History of atrial fibrillation Dispo: Pending labs images and final disposition. Signed out to morning physician. This note was generated with [employer] dictation software. It may contain incorrect words, spelling, and punctuation that were not noted in review of the chart prior to signing. Lab Data Labs: Laboratory Results - last 24 hr 04/20/25 04/20/25 04/20/25 06:20 06:20 06:20 WBC 13.5 H RBC 5.11 Hgb 14.9 Hct 43.9 MCV 85.9 MCH 29.2 MCHC 33.9 RDW Std Deviation 41.1 RDW Coeff of Lon 13.2 Plt Count 345 MPV 8.9 Immature Gran % (Auto) 1.200 H Neut % (Auto) 68.2 Lymph % (Auto) 16.2 L [place] % (Auto) 8.8 Eos % (Auto) 5.1 H Baso % (Auto) 0.5 Absolute Neuts (auto) 9.2 H Absolute Lymphs (auto) 2.18 Nucleated RBC % 0 Sodium 130 L Potassium 4.2 Chloride 92 L Carbon Dioxide 24.6 Anion Gap 13 BUN 18 Creatinine 0.98 Estim Creat Clear Calc 126.29 Est GFR (MDRD) Non-Af 88 BUN/Creatinine Ratio 18.3 Glucose 166 H Lactic Acid Calcium 9.7 Magnesium 1.3 L Cancelled Troponin T High Sens < 6 TSH 4.550 H Cancelled 04/20/25 07:00 WBC RBC Hgb Hct MCV MCH MCHC RDW Std Deviation RDW Coeff of Lon Plt Count MPV Immature Gran % (Auto) Neut % (Auto) Lymph % (Auto) [place] % (Auto) Eos % (Auto) Baso % (Auto) Absolute Neuts (auto) Absolute Lymphs (auto) Nucleated RBC % Sodium Potassium Chloride Carbon Dioxide Anion Gap BUN Creatinine Estim Creat Clear Calc Est GFR (MDRD) Non-Af BUN/Creatinine Ratio Glucose Lactic Acid 1.9 Calcium Magnesium Troponin T High Sens TSH Radiography Diagnostic Testing: Clinical Impression(s) from Imaging Studies Chest X-Ray 04/20/25 06:22 IMPRESSION: No radiographic evidence of an acute abnormality. Reading [facility] <Dr. Tripp Vogel MD - Last Filed: 04/20/25 10:13> [facility] Lab Data Attestation: I reviewed the patient's lab results. Lab results narrative: White count is elevated 13.5 thousand. There is no shift. H&H is normal. Magnesium is normal. First troponin is less than 6. TSH is high at 4.55. Lactate is normal at 1.9. Troponin is less than 6. Magnesium is low at 1.3. Lower end of normal is 1.5. Labs: Laboratory Results - last 24 hr 04/20/25 04/20/25 04/20/25 06:20 06:20 06:20 WBC 13.5 H RBC 5.11 Hgb 14.9 Hct 43.9 MCV 85.9 MCH 29.2 MCHC 33.9 RDW Std Deviation 41.1 RDW Coeff of Lon 13.2 Plt Count 345 MPV 8.9 Immature Gran % (Auto) 1.200 H Neut % (Auto) 68.2 Lymph % (Auto) 16.2 L [place] % (Auto) 8.8 Eos % (Auto) 5.1 H Baso % (Auto) 0.5 Absolute Neuts (auto) 9.2 H Absolute Lymphs (auto) 2.18 Nucleated RBC % 0 Sodium 130 L Potassium 4.2 Chloride 92 L Carbon Dioxide 24.6 Anion Gap 13 BUN 18 Creatinine 0.98 Estim Creat Clear Calc 126.29 Est GFR (MDRD) Non-Af 88 BUN/Creatinine Ratio 18.3 Glucose 166 H Lactic Acid Calcium 9.7 Magnesium 1.3 L Cancelled Troponin T High Sens < 6 TSH 4.550 H Cancelled 04/20/25 07:00 WBC RBC Hgb Hct MCV MCH MCHC RDW Std Deviation RDW Coeff of Lon Plt Count MPV Immature Gran % (Auto) Neut % (Auto) Lymph % (Auto) [place] % (Auto) Eos % (Auto) Baso % (Auto) Absolute Neuts (auto) Absolute Lymphs (auto) Nucleated RBC % Sodium Potassium Chloride Carbon Dioxide Anion Gap BUN Creatinine Estim Creat Clear Calc Est GFR (MDRD) Non-Af BUN/Creatinine Ratio Glucose Lactic Acid 1.9 Calcium Magnesium Troponin T High Sens TSH Radiography Chest X-Ray - ED: 1 View and Read by ED Physician (Single view chest x-ray independently reviewed interpreted by me. The film is slightly rotated. Cardiac silhouette and size is unremarkable. [place] is remarkable slight prominence of the pulmonary vasculature on the right side which may be due to rotation. There is no infiltrate, effusion or evid) Diagnostic Testing: Clinical Impression(s) from Imaging Studies Chest X-Ray 04/20/25 06:22 IMPRESSION: No radiographic evidence of an acute abnormality. Reading Location: [place] [address] EKG Follow-up EKG: Attestation: I personally reviewed and interpreted this EKG as follows: Interpretation: Sinus Rhythm (Rate is 74. There is decreased anterior force. MI was 188 ms. Cures duration 108 ms. QT duration 282 ms. [place] is normal. There is no acute ischemic changes. The EKG is unchanged from prior.) Management Discussion w/another healthcare provider: [employer] (Case was discussed with Dr. Juarez. After discussion plan was to give adenosine 6 and 12 determine if this is sinus tach versus atypical a flutter with a 2-1 block.) Treatment and Re-Evaluation :: 1. Patient received 6 mg of adenosine IV push. There was no change in his rhythm. 2. Patient received 12 mg of adenosine. Patient is in a flutter with 2-1 block. This is atypical. Suspect this is due to the fact that he is on carvedilol and Cardizem. Dr. Murrell was made aware that he is in a flutter 2-1. Since patient is on anticoagulant has been cardioverted in the past he is aware of risk benefits. Plan is cardioversion. Will sedate with propofol. Plan is to discharge to home per protocol and have patient contact office for follow-up. Comments:: Patient has been observed. He remains in a sinus rhythm. Will discharge to home Procedures <Dr. Tripp Vogel MD - Last Filed: 04/20/25 10:13> Procedural Sedation 1 (Initial Baseline): Consent Signed: Yes Any Problems With Anesthesia: No You/Your family experience fever (hyperthermia) w/anesthesia: No Sedation medication: Propofol Dose: 150 Total Moderate Sedation Units: 8 [place]amp[place] Score: Class I ASA Classification: E and III Comment:: Timeout was performed. Patient received initially 100 mg of propofol. He did not achieve desired effect. He was administered another 50 mg of propofol by me. Desired effect was achieved. He was successfully cardioverted with 200 J. Monitor now reveals a sinus rhythm rate of 90. 3 procedure patient was in a flutter 2-1 block with a rate of 125. Discharge Plan Triage Chief Complaint: Palpitations ED Provider: Parker Gamez Dx/Rx/DC Orders Clinical Impression: Atrial flutter, Cardiomyopathy, Systolic dysfunction, Pure hypercholesterolemia, SHARRI (obstructive sleep apnea), Encounter for cardioversion procedure, Type 2 diabetes mellitus, Adult BMI 50.0-59.9 kg/sq m Instructions: ED Atrial Flutter, ED Cardioversion, Electrical Prescriptions: No Action lisinopril 20 mg tablet 20 mg PO QPM vitamin B complex [B Complex-Vitamin B12] Tablet 1 tab PO DAILY testosterone 20.25 mg/1.25 gram (1.62 %) gel in metered-dose pump 40.5 mg topical QAM allopurinol 100 MG tablet 100 mg PO DAILY Patient Comments: for gout atorvastatin 40 MG tablet 40 mg PO QHS alprazolam 0.5 MG tablet 0.5 mg PO TID sertraline 50 MG tablet 50 mg PO DAILY lisinopril-hydrochlorothiazide 20-12.5 mg tablet 1 tab PO QAM metformin 500 mg Tablet 500 mg PO BID ergocalciferol (vitamin D2) 50,000 unit Tablet 50,000 unit PO QMONTH diltiazem HCl 120 mg capsule,extended release 24hr 120 mg PO BID ascorbic acid (vitamin C) [Vitamin C] 500 mg tablet 500 mg PO DAILY omeprazole [Prilosec] 20 mg Capsule,Delayed Release(Dr/Ec) 20 mg PO DAILY carvedilol 6.25 mg tablet 9.75 mg PO BID vitamin E mixed 1,000 unit capsule 1,000 unit PO DAILY Patient Comments: thinks 1000 unit is strength. gets otc Xarelto 20 mg tablet 20 mg PO QDAY Qty: 90 3RF Primary Care Provider: Charlene Dennison Referrals: Charlene Dennison MD [Primary Care Provider] - Sergio Juarez MD [Med Staff - Active Staff] - 5-7 Days Print Language: Upper Sorbian Disposition Disposition: Home, Self Care Discharge Date/Time: 04/20/25 10:31
--- NOTE | 2025-04-20 06:16 | EKG12_ITS ---
Test Reason : REPEAT Blood Pressure : */* mmHG Vent. Rate : 74 BPM Atrial Rate : 74 BPM P-R Int : 188 ms QRS Dur : 108 ms QT Int : 382 ms P-R-T Axes : 65 -19 34 degrees QTcB Int : 424 ms Normal sinus rhythm Possible Anterior infarct , age undetermined Abnormal ECG Confirmed by HUGH SILVA, JAE ([id number]), department editor JIGAR ANGELO ([id number]) on 04/26/2025 7:05:28 AM Referred By: Confirmed By: JAE REESE MD
--- NOTE | 2025-04-20 06:22 | RAD_ITS ---
PROCEDURE: CHEST 1 VIEW (PORTABLE) 04/20/2025 REASON FOR EXAM: CHEST PAIN TECHNIQUE: Frontal view of the chest. COMPARISON: None. FINDINGS: The lungs are expanded. There is no demonstrated parenchymal abnormality. There is no demonstrated pleural abnormality. Normal heart and pericardium. Normal mediastinum and nicol. Normal visualized pulmonary arteries. Normal visualized aortic arch and descending thoracic aorta. Normal visualized thoracic spine. Normal visualized ribs, clavicles, and shoulders. There is no demonstrated abnormality of the visualized soft tissue structures of the upper abdomen. RAD/Chest 1 View (Portable) IMPRESSION: No radiographic evidence of an acute abnormality. Reading [facility]
[2025-04-20] MEDS: 0.9% Normal Saline (500mL Bag) 500 ML 999 ML IV (06:38)
[2025-04-20 06:48] LABS: Absolute Lymphocyte Count 2.18 X10^3/uL (0.83-4.51); Absolute Neutrophil Count 9.2 X10^3/uL (2.0-7.7); Basophil# 0.07 X10^3/uL; Basophil% 0.5 % (0-1); Eosinophil# 0.69 X10^3/uL; Eosinophils% 5.1 % (0-5); Hematocrit 43.9 % (40-54); Hemoglobin 14.9 g/dL (13.0-16.5); Lymphocyte # 2.18 X10^3/ul (0.83-4.51); Lymphocyte % 16.2 % (19-41); Mean Corp Hgb Conc 33.9 g/dL (32-36); Mean Corpuscular Hgb 29.2 pg (27.0-32.0); Mean Corpuscular Volume 85.9 fL (80-94); Mean Platelet Vol. 8.9 fl (6.2-12.0); Monocyte# 1.19 X10^3/uL; Monocyte% 8.8 % (0-10); NRBC Flagged by Analyzer 0 % (0-5); Neutrophil # 9.18 X10^3/uL (2.7-7.7); Neutrophil % 68.2 % (47-70); Platelet Count 345 K/mm3 (150-450); RBC Distribution Width CV 13.2 % (11.6-14.6); RBC Distribution Width SD 41.1 fl (35.1-43.9); Red Blood Count 5.11 M/mm3 (4.6-6.2); White Blood Count 13.5 K/mm3 (4.4-11.0)
[2025-04-20] MEDS: dilTIAZem 25 MG/5 ML Vial 10 MG IV BOLUS (06:51)
[2025-04-20 07:08] LABS: Anion Gap 13 (5-15); BUN 18 mg/dL (4-19); BUN/Creat Ratio 18.3 RATIO (10-20); Calcium,Total 9.7 mg/dL (7.6-11.0); Carbon Dioxide 24.6 mmol/L (21.0-32.0); Chloride 92 mmol/L (98-108); Creatinine, Serum 0.98 mg/dL (0.70-1.20); EST Glomerular Filtration Rate 88 (>60); Estimated Creatinine Clearance 126.29 ml/min (50-250); Glucose 166 mg/dL (70-99); Potassium 4.2 mmol/L (3.3-5.1); Sodium Level 130 mmol/L (133-145); Troponin T High Sensitivity < 6 ng/L (<=22)
[2025-04-20 07:38] LABS: Magnesium 1.3 mg/dL (1.5-2.2)
[2025-04-20 07:47] LABS: Lactic Acid 1.9 mmol/L (0.0-2.0)
[2025-04-20] MEDS: Adenosine 6 MG/2 ML Syringe IV (09:26)
[2025-04-20] MEDS: Adenosine 6 MG/2 ML Syringe 12 MG IV (09:28)
[2025-04-20] MEDS: Propofol 200 MG/20 ML Vial IV BOLUS (09:52)
--- NOTE | 2025-04-20 09:52 | EKG12_ITS ---
Test Reason : PALP Blood Pressure : */* mmHG Vent. Rate : 127 BPM Atrial Rate : 127 BPM P-R Int : 176 ms QRS Dur : 156 ms QT Int : 370 ms P-R-T Axes : 111 -49 -18 degrees QTcB Int : 537 ms Sinus tachycardia Left axis deviation Non-specific intra-ventricular conduction block Possible Lateral infarct , age undetermined Abnormal ECG Confirmed by HUGH SILVA, JAE ([id number]), acquisitions editor JIGAR ANGELO ([id number]) on 04/26/2025 7:05:43 AM Referred By: SEBASTIAN Confirmed By: JAE REESE MD
== END 2025-04-20 10:31 | disposition home or self-care (01) ==
PROVIDERS: Emergency Provider Emergency Medicine; PCP Internal Medicine; Visit Provider Emergency Medicine
DX: I48.92 Unspecified atrial flutter (principal); I42.9 Cardiomyopathy, unspecified; Z68.43 Body mass index [BMI] 50.0-59.9, adult; E11.9 Type 2 diabetes mellitus without complications; E78.00 Pure hypercholesterolemia, unspecified; G47.33 Obstructive sleep apnea (adult) (pediatric); I10 Essential (primary) hypertension; E66.9 Obesity, unspecified; Z79.01 Long term (current) use of anticoagulants; Z79.84 Long term (current) use of oral hypoglycemic drugs; Z79.899 Other long term (current) drug therapy; Z87.891 Personal history of nicotine dependence
CPT/HCPCS: 36415; 71045; 80048; 83605; 83735; 84443; 84484; 85025; 92960; 93005; 96361; 96374; 96375; 96376; 99283; A4216; J0153

== ENCOUNTER → 2025-06-03 | Outpatient (CLI) | payer MEDICARE, OTHER, SELFPAY ==
--- NOTE | 2025-06-03 08:37 | ECHOCS_ITS ---
Reason For Study Reason For Study: AFib/Flutter Procedure This was a 2D Doppler, Color Flow transthoracic echocardiogram. The study was technically difficult. Contrast injection was performed. Exam performed in department. Left Ventricle Mildly dilated left ventricle. Mild concentric left ventricular hypertrophy. Borderline LV systolic function. Estimated LVEF 45-50%. Stage I diastolic dysfunction. Right Ventricle Normal right ventricle. Atria There is severe biatrial dilatation. Mitral Valve Mild (1+) mitral valve insufficiency. Tricuspid Valve Normal tricuspid valve. Aortic Valve Trisinus/trileaflet aortic valve. Pulmonic Valve The pulmonic valve is not well visualized. Great Vessels Mildly dilated aortic root. Pericardium/Pleural No pericardial effusion. Medication 22 gauge I.V. with prn adaptor inserted into left arm. Diluted definity 3ml given slow IV push to enhance endocardial definition. MMode/2D Measurements & Calculations LVIDd: 5.8 cm IVSd: 1.3 cm Ao root diam: 4.2 cm LVIDs: 4.6 cm LVPWd: 1.3 cm FS: 20.4 % asc Aorta Diam: 4.3 cm LAV(MOD-bp): 83.6 ml LVAd ap4: 46.6 cm2 LAV(MOD-bp) Indexed: 30.7 ml/m2 LVLd ap4: 8.7 cm LAV(MOD-sp2): 77.5 ml EDV(MOD-sp4): 204.9 ml LAV(MOD-sp4): 89.1 ml EDV(sp4-el): 211.5 ml LVAs ap4: 30.5 cm2 LVLs ap4: 7.5 cm ESV(MOD-sp4): 101.9 ml ESV(sp4-el): 105.8 ml EF(MOD-sp4): 50.3 % EF(sp4-el): 50.0 % SV(MOD-sp4): 103.0 ml SV(sp4-el): 105.7 ml LA A4 area: 26.0 cm2 SI(MOD-sp4): 37.8 ml/m2 LA dimension(2D): 5.0 cm RA A4 area: 26.8 cm2 TAPSE: 2.9 cm Time Measurements MV dec time: 0.25 sec Doppler Measurements & Calculations MV E max ruddy: 69.2 cm/sec Lat Peak E' Ruddy: 11.7 cm/sec Med Peak E' Ruddy: 10.9 cm/sec MV A max ruddy: 83.0 cm/sec E/E' lat: 5.9 E/E' med: 6.4 MV E/A: 0.83 MV V2 max: 107.2 cm/sec MV P1/2t max ruddy: 92.9 cm/sec Ao V2 max: 143.6 cm/sec MV max P.6 mmHg MV P1/2t: 94.8 msec Ao max P.3 mmHg MV V2 mean: 67.3 cm/sec MV dec slope: 286.8 cm/sec2 Ao V2 mean: 101.2 cm/sec MV mean P.1 mmHg MVA(P1/2t): 2.3 cm2 Ao mean P.6 mmHg MV V2 VTI: 34.5 cm Ao V2 VTI: 32.7 cm AV (velocity ratio): 0.76 LV V1 max: 111.2 cm/sec PA V2 max: 107.7 cm/sec LV V1 max P.0 mmHg LV V1 mean P.0 mmHg LV V1 mean: 80.6 cm/sec LV V1 VTI: 25.0 cm ECHO/Echo Complete W/ Contrast Interpretation Summary The study was technically difficult. Mildly dilated left ventricle. Mild concentric left ventricular hypertrophy. Borderline LV systolic function. Estimated LVEF 45-50%. Stage I diastolic dysfu nction. There is severe biatrial dilatation. Mild (1+) mitral valve insufficiency. Mildly dilated aortic root. Ordering Physician: Omer Ospina Referring Physician: Omer Ospina Performed By: Lukas Graza RCS
== END | disposition home or self-care (01) ==
LOC: CVS 08:36
PROVIDERS: PCP Internal Medicine; Referring Provider Nurse Practitioner Family; Visit Provider Nurse Practitioner Family
DX: I48.0 Paroxysmal atrial fibrillation (principal)
CPT/HCPCS: 93225; 93226; 93306; Q9957; A4216; C8929

== ENCOUNTER 2025-07-16 19:45 | Inpatient (IN) | payer MEDICARE, OTHER, SELFPAY ==
[2025-07-16] VITALS (37 sets, daily range): BP systolic 89–146; BP diastolic 54–108; PULSE 69–130; RESP 13–26; TEMP 36.2; O2SAT 93–109; BMI 48.8
--- NOTE | 2025-07-16 19:53 | EKG12_ITS ---
Test Reason : DYSRHYTHMIA Blood Pressure : */* mmHG Vent. Rate : 82 BPM Atrial Rate : * BPM P-R Int : * ms QRS Dur : 108 ms QT Int : 376 ms P-R-T Axes : * -12 28 degrees QTcB Int : 439 ms Atrial fibrillation with a competing junctional pacemaker Septal infarct , age undetermined Abnormal ECG Confirmed by Sergio Juarez ([id number]), desk editor JIGAR ANGELO ([id number]) on 07/20/2025 10:56:25 AM Referred By: Confirmed By: Sergio Juarez
[2025-07-16 20:04] LABS: Hematocrit 44.6 % (40-54); Hemoglobin 15.1 g/dL (13.0-16.5); Immature Granulocytes Count 0.090 X10^3/uL (0.0-0.0); Mean Corp Hgb Conc 33.9 g/dL (32-36); Mean Corpuscular Volume 86.1 fL (80-94); Mean Platelet Vol. 8.2 fl (6.2-12.0); NRBC Flagged by Analyzer 0 % (0-5); Platelet Count 295 K/mm3 (150-450); RBC Distribution Width CV 12.8 % (11.6-14.6); RBC Distribution Width SD 40.1 fl (35.1-43.9); Red Blood Count 5.18 M/mm3 (4.6-6.2); White Blood Count 12.6 K/mm3 (4.4-11.0)
--- NOTE | 2025-07-16 20:05 | RAD_ITS ---
PROCEDURE: CHEST 1 VIEW (PORTABLE) 07/16/2025 REASON FOR EXAM: CHEST PAIN TECHNIQUE: Frontal view of the chest. COMPARISON: 04/20/2025 FINDINGS: Lungs/Pleura: No focal consolidation, pneumothorax or sizable pleural effusion. Heart/Mediastinum: Enlarged cardiac silhouette. Mild vascular congestion. Bones/Soft tissues: Mild degenerative changes of the thoracic spine. RAD/Chest 1 View (Portable) IMPRESSION: Cardiomegaly with mild vascular congestion. No airspace disease. Reading Location: [id number]
--- NOTE | 2025-07-16 20:08 | EX.ED.DYSGE1 ---
HPI <MELVA Hubbard - Last Filed: 07/16/25 21:38> History of Present Illness Chief Complaint: Palpitations Narrative Narrative: 64-year-old male with PMH of HTN, HLD, A-fib/a flutter on Xarelto presents with palpitations and shortness of breath that started around 3:30 PM. He states he was drinking a few beers and mowing lawn when it started. These are the symptoms he gets when he goes into A-fib. He normally takes his medication at 3:30 AM and 3:30 PM. He took his afternoon dose of carvedilol and Cardizem around 4:15 PM since he was mowing. He could still feel his heart racing so an hour later he took an extra dose of carvedilol 6.25 mg. His baseline dose is carvedilol 12.5 mg twice daily and diltiazem 120 mg twice daily. Since 2013 he has gone into A-fib or a flutter frequently and has been cardioverted 8 or 9 times and converted with medication twice. Last cardioversion was around April 20 and they doubled his carvedilol dose then. He denies fever, chills, chest pain, cough, nausea vomiting, abdominal pain. PFSH <MELVA Hubbard - Last Filed: 07/16/25 21:38> [facility] Medical History Depression Anxiety Alcohol use History of steroid therapy Diabetes Fatty liver High cholesterol Restless legs Back pain Dietary restriction Difficulty swallowing History of diverticulitis Gastric reflux Former smoker BiPAP (biphasic positive airway pressure) dependence Shortness of breath on exertion History of pain when walking History of stress test Hypertension Cardiology follow-up encounter Elevated alkaline phosphatase level Testosterone deficiency Vitamin D deficiency Panic disorder with agoraphobia Glaucoma Chronic GERD Gout Osteoarthritis Erectile dysfunction Genetic carrier of other disease Family history of colon cancer GI bleed History of left heart catheterization (LHC) (~05/29/22) SHARRI (obstructive sleep apnea) Atrial flutter with rapid ventricular response Paroxysmal atrial flutter Systolic dysfunction Cardiomyopathy Hyperlipidemia Palpitations Diabetes mellitus type 2 in obese Anxiety disorder Obesity Home Medications ?Medication ?Instructions ?Recorded ?Last Taken ?Type allopurinol 100 mg tablet 100 mg PO DAILY 05/15/14 04/20/25 History alprazolam 0.5 mg tablet 0.5 mg PO TID anxiety 01/09/19 04/20/25 History atorvastatin 40 mg tablet 40 mg PO QHS cholestrol 01/09/19 04/19/25 History sertraline 50 mg tablet 50 mg PO DAILY depression 01/09/19 04/20/25 History rivaroxaban 20 mg tablet (Xarelto) 20 mg PO QDAY #90 tabs 02/17/20 04/19/25 Rx ergocalciferol (vitamin D2) 50,000 50,000 unit PO .COMPLEX 05/14/21 05/29/22 History unit tablet diltiazem HCl 120 mg 120 mg PO BID 02/19/22 04/20/25 History capsule,extended release 24 hr lisinopril 20 mg tablet 20 mg PO QPM 05/18/22 04/19/25 History lisinopril 20 1 tab PO QAM 05/18/22 04/20/25 History mg-hydrochlorothiazide 12.5 mg tablet vitamin B complex (B 1 tab PO DAILY 10/09/22 04/20/25 History Complex-Vitamin B12 tablet) ascorbic acid (vitamin C) 500 mg 500 mg PO DAILY 01/11/23 04/19/25 History tablet (Vitamin C) omeprazole 20 mg capsule,delayed 20 mg PO DAILY 01/11/23 04/20/25 History release testosterone 40.5 mg topical QAM 03/01/25 04/19/25 History vitamin E mixed 1,000 unit capsule 1,000 unit PO DAILY 04/20/25 04/19/25 History carvedilol 12.5 mg tablet 12.5 mg PO BID #180 tabs 04/27/25 Unknown Rx magnesium citrate,mag oxide 250 mg 500 mg PO DAILY 07/16/25 Unknown History capsule metformin 750 mg tablet,extended 750 mg PO BID 07/16/25 Unknown History release 24 hr thiamine HCl (vitamin B1) 250 mg 250 mg PO DAILY 07/16/25 Unknown History tablet Allergy/AdvReac Type Severity Reaction Status Date / Time No Known Allergies Allergy Verified 07/16/25 19:45 Family History Mother Cardiomyopathy Cancer thyroid cancer CHF (congestive heart failure) Father CAD (coronary artery disease) Sister COPD (chronic obstructive pulmonary disease) Breast cancer Surgical History History of cardiac catheterization Hx of colonoscopy with polypectomy S/P arthroscopy of left shoulder s/p right shoulder surgery Status post left foot surgery S/P tonsillectomy History of cardioversion (04/20/25) Social History household members: spouse Smoking Status: Former smoker how long ago did patient quit smokin alcohol intake: current alcohol intake frequency: 3 or more drinks per day Alcohol type: beer details: occasional substance use type: does not use caffeine: No ROS <MELVA Hubbard - Last Filed: 07/16/25 21:38> ROS ED ROS Narrative Constitutional: Negative for fever, chills, malaise. CVS: Positive for palpitations. No chest pain or syncope. Respiratory: Positive for shortness of breath. GI: Negative for abdominal pain, nausea, vomiting, melena, hematochezia. EXAM <MELVA Hubbard - Last Filed: 07/16/25 21:38> Physical Exam Narrative Exam Narrative: CONST: Patient sitting in no acute distress. EYES: Normal inspection. NECK: Normal inspection. RESP: No respiratory distress, CTAB. CVS: Irregularly irregular rhythm, no murmur, no gallop. ABD: Soft and nontender, no guarding or rebound, nondistended. SKIN: Color normal, no rash, warm, dry, intact. EXTREMITIES: Normal appearance, no pedal edema. NEURO: Alert and answering questions appropriately. PSYCH: Normal affect. Const Vital Signs: 07/16/25 19:45 07/16/25 19:53 07/16/25 19:53 Temperature 97.2 F L Temperature Source Temporal Pulse Rate 102 H Pulse Rate [1 (Initial Baseline)] Pulse Rate [2] Pulse Rate [3] Respiratory Rate 24 H Respiratory Rate [1 (Initial Baseline)] Respiratory Rate [2] Respiratory Rate [3] Respiratory Effort Short of Breath Blood Pressure 146/101 H Blood Pressure [1 (Initial Baseline)] Blood Pressure [2] Blood Pressure [3] Blood Pressure Mean 116 Baseline BP Pulse Ox 96 109 Oxygen Delivery Method Room Air Room Air Oxygen Delivery Method [1 (Initial Baseline)] Oxygen Delivery Method [2] Oxygen Delivery Method [3] Oxygen Flow Rate (L/min) Oxygen Flow Rate (L/min) [1 (Initial Baseline)] Oxygen Flow Rate (L/min) [2] Oxygen Flow Rate (L/min) [3] EtCo2 - Document during CPR and with ROSC EtCo2 - Document during CPR and with ROSC [1 (Initial Baseline)] EtCo2 - Document during CPR and with ROSC [2] EtCo2 - Document during CPR and with ROSC [3] 07/16/25 20:46 07/16/25 20:55 07/16/25 21:25 Temperature Temperature Source Pulse Rate 90 75 Pulse Rate [1 (Initial Baseline)] Pulse Rate [2] Pulse Rate [3] Respiratory Rate 20 H 16 Respiratory Rate [1 (Initial Baseline)] Respiratory Rate [2] Respiratory Rate [3] Respiratory Effort Blood Pressure 134/89 H 111/64 Blood Pressure [1 (Initial Baseline)] Blood Pressure [2] Blood Pressure [3] Blood Pressure Mean 104 79 Baseline BP Pulse Ox 96 94 Oxygen Delivery Method Room Air Room Air Oxygen Delivery Method [1 (Initial Baseline)] Oxygen Delivery Method [2] Oxygen Delivery Method [3] Oxygen Flow Rate (L/min) Oxygen Flow Rate (L/min) [1 (Initial Baseline)] Oxygen Flow Rate (L/min) [2] Oxygen Flow Rate (L/min) [3] EtCo2 - Document during CPR and with ROSC 43 EtCo2 - Document during CPR and with ROSC [1 (Initial Baseline)] EtCo2 - Document during CPR and with ROSC [2] EtCo2 - Document during CPR and with ROSC [3] 07/16/25 21:25 07/16/25 21:25 07/16/25 22:09 Temperature Temperature Source Pulse Rate 84 74 Pulse Rate [1 (Initial Baseline)] 87 Pulse Rate [2] 82 Pulse Rate [3] 75 Respiratory Rate 18 25 H Respiratory Rate [1 (Initial Baseline)] 24 H Respiratory Rate [2] 18 Respiratory Rate [3] 21 H Respiratory Effort Blood Pressure 127/67 H 127/76 H Blood Pressure [1 (Initial Baseline)] 137/78 H Blood Pressure [2] 130/63 H Blood Pressure [3] 89/57 L Blood Pressure Mean Baseline BP 127/67 Pulse Ox 95 98 Oxygen Delivery Method Room Air Nasal Cannula Oxygen Delivery Method [1 (Initial Baseline)] Nasal Cannula Oxygen Delivery Method [2] Nasal Cannula Oxygen Delivery Method [3] Nasal Cannula Oxygen Flow Rate (L/min) 4 Oxygen Flow Rate (L/min) [1 (Initial Baseline)] 4 Oxygen Flow Rate (L/min) [2] 4 Oxygen Flow Rate (L/min) [3] 4 EtCo2 - Document during CPR and with ROSC 45 41 EtCo2 - Document during CPR and with ROSC [1 (Initial Baseline)] 41 EtCo2 - Document during CPR and with ROSC [2] 42 EtCo2 - Document during CPR and with ROSC [3] 41 07/16/25 22:14 07/16/25 22:25 07/16/25 22:30 Temperature Temperature Source Pulse Rate 76 105 H 128 H Pulse Rate [1 (Initial Baseline)] Pulse Rate [2] Pulse Rate [3] Respiratory Rate 25 H 26 H 24 H Respiratory Rate [1 (Initial Baseline)] Respiratory Rate [2] Respiratory Rate [3] Respiratory Effort Blood Pressure 138/90 H 109/85 H 143/108 H Blood Pressure [1 (Initial Baseline)] Blood Pressure [2] Blood Pressure [3] Blood Pressure Mean Baseline BP Pulse Ox 99 97 97 Oxygen Delivery Method Nasal Cannula Nasal Cannula Nasal Cannula Oxygen Delivery Method [1 (Initial Baseline)] Oxygen Delivery Method [2] Oxygen Delivery Method [3] Oxygen Flow Rate (L/min) 4 4 4 Oxygen Flow Rate (L/min) [1 (Initial Baseline)] Oxygen Flow Rate (L/min) [2] Oxygen Flow Rate (L/min) [3] EtCo2 - Document during CPR and with ROSC 41 45 39 EtCo2 - Document during CPR and with ROSC [1 (Initial Baseline)] EtCo2 - Document during CPR and with ROSC [2] EtCo2 - Document during CPR and with ROSC [3] 07/16/25 22:35 07/16/25 22:46 Temperature 97.2 F L Temperature Source Pulse Rate 89 89 Pulse Rate [1 (Initial Baseline)] Pulse Rate [2] Pulse Rate [3] Respiratory Rate 22 H 22 H Respiratory Rate [1 (Initial Baseline)] Respiratory Rate [2] Respiratory Rate [3] Respiratory Effort Blood Pressure 145/79 H 145/79 H Blood Pressure [1 (Initial Baseline)] Blood Pressure [2] Blood Pressure [3] Blood Pressure Mean 101 Baseline BP Pulse Ox 98 98 Oxygen Delivery Method Nasal Cannula Oxygen Delivery Method [1 (Initial Baseline)] Oxygen Delivery Method [2] Oxygen Delivery Method [3] Oxygen Flow Rate (L/min) Oxygen Flow Rate (L/min) [1 (Initial Baseline)] Oxygen Flow Rate (L/min) [2] Oxygen Flow Rate (L/min) [3] EtCo2 - Document during CPR and with ROSC 39 EtCo2 - Document during CPR and with ROSC [1 (Initial Baseline)] EtCo2 - Document during CPR and with ROSC [2] EtCo2 - Document during CPR and with ROSC [3] <Dr. Graham Green MD - Last Filed: 07/16/25 22:53> Physical Exam Const Vital Signs: 07/16/25 19:45 07/16/25 19:53 07/16/25 19:53 Temperature 97.2 F L Temperature Source Temporal Pulse Rate 102 H Pulse Rate [1 (Initial Baseline)] Pulse Rate [2] Pulse Rate [3] Respiratory Rate 24 H Respiratory Rate [1 (Initial Baseline)] Respiratory Rate [2] Respiratory Rate [3] Respiratory Effort Short of Breath Blood Pressure 146/101 H Blood Pressure [1 (Initial Baseline)] Blood Pressure [2] Blood Pressure [3] Blood Pressure Mean 116 Baseline BP Pulse Ox 96 109 Oxygen Delivery Method Room Air Room Air Oxygen Delivery Method [1 (Initial Baseline)] Oxygen Delivery Method [2] Oxygen Delivery Method [3] Oxygen Flow Rate (L/min) Oxygen Flow Rate (L/min) [1 (Initial Baseline)] Oxygen Flow Rate (L/min) [2] Oxygen Flow Rate (L/min) [3] EtCo2 - Document during CPR and with ROSC EtCo2 - Document during CPR and with ROSC [1 (Initial Baseline)] EtCo2 - Document during CPR and with ROSC [2] EtCo2 - Document during CPR and with ROSC [3] 07/16/25 20:46 07/16/25 20:55 07/16/25 21:25 Temperature Temperature Source Pulse Rate 90 75 Pulse Rate [1 (Initial Baseline)] Pulse Rate [2] Pulse Rate [3] Respiratory Rate 20 H 16 Respiratory Rate [1 (Initial Baseline)] Respiratory Rate [2] Respiratory Rate [3] Respiratory Effort Blood Pressure 134/89 H 111/64 Blood Pressure [1 (Initial Baseline)] Blood Pressure [2] Blood Pressure [3] Blood Pressure Mean 104 79 Baseline BP Pulse Ox 96 94 Oxygen Delivery Method Room Air Room Air Oxygen Delivery Method [1 (Initial Baseline)] Oxygen Delivery Method [2] Oxygen Delivery Method [3] Oxygen Flow Rate (L/min) Oxygen Flow Rate (L/min) [1 (Initial Baseline)] Oxygen Flow Rate (L/min) [2] Oxygen Flow Rate (L/min) [3] EtCo2 - Document during CPR and with ROSC 43 EtCo2 - Document during CPR and with ROSC [1 (Initial Baseline)] EtCo2 - Document during CPR and with ROSC [2] EtCo2 - Document during CPR and with ROSC [3] 07/16/25 21:25 07/16/25 21:25 07/16/25 22:09 Temperature Temperature Source Pulse Rate 84 74 Pulse Rate [1 (Initial Baseline)] 87 Pulse Rate [2] 82 Pulse Rate [3] 75 Respiratory Rate 18 25 H Respiratory Rate [1 (Initial Baseline)] 24 H Respiratory Rate [2] 18 Respiratory Rate [3] 21 H Respiratory Effort Blood Pressure 127/67 H 127/76 H Blood Pressure [1 (Initial Baseline)] 137/78 H Blood Pressure [2] 130/63 H Blood Pressure [3] 89/57 L Blood Pressure Mean Baseline BP 127/67 Pulse Ox 95 98 Oxygen Delivery Method Room Air Nasal Cannula Oxygen Delivery Method [1 (Initial Baseline)] Nasal Cannula Oxygen Delivery Method [2] Nasal Cannula Oxygen Delivery Method [3] Nasal Cannula Oxygen Flow Rate (L/min) 4 Oxygen Flow Rate (L/min) [1 (Initial Baseline)] 4 Oxygen Flow Rate (L/min) [2] 4 Oxygen Flow Rate (L/min) [3] 4 EtCo2 - Document during CPR and with ROSC 45 41 EtCo2 - Document during CPR and with ROSC [1 (Initial Baseline)] 41 EtCo2 - Document during CPR and with ROSC [2] 42 EtCo2 - Document during CPR and with ROSC [3] 41 07/16/25 22:14 07/16/25 22:25 07/16/25 22:30 Temperature Temperature Source Pulse Rate 76 105 H 128 H Pulse Rate [1 (Initial Baseline)] Pulse Rate [2] Pulse Rate [3] Respiratory Rate 25 H 26 H 24 H Respiratory Rate [1 (Initial Baseline)] Respiratory Rate [2] Respiratory Rate [3] Respiratory Effort Blood Pressure 138/90 H 109/85 H 143/108 H Blood Pressure [1 (Initial Baseline)] Blood Pressure [2] Blood Pressure [3] Blood Pressure Mean Baseline BP Pulse Ox 99 97 97 Oxygen Delivery Method Nasal Cannula Nasal Cannula Nasal Cannula Oxygen Delivery Method [1 (Initial Baseline)] Oxygen Delivery Method [2] Oxygen Delivery Method [3] Oxygen Flow Rate (L/min) 4 4 4 Oxygen Flow Rate (L/min) [1 (Initial Baseline)] Oxygen Flow Rate (L/min) [2] Oxygen Flow Rate (L/min) [3] EtCo2 - Document during CPR and with ROSC 41 45 39 EtCo2 - Document during CPR and with ROSC [1 (Initial Baseline)] EtCo2 - Document during CPR and with ROSC [2] EtCo2 - Document during CPR and with ROSC [3] 07/16/25 22:35 07/16/25 22:46 Temperature 97.2 F L Temperature Source Pulse Rate 89 89 Pulse Rate [1 (Initial Baseline)] Pulse Rate [2] Pulse Rate [3] Respiratory Rate 22 H 22 H Respiratory Rate [1 (Initial Baseline)] Respiratory Rate [2] Respiratory Rate [3] Respiratory Effort Blood Pressure 145/79 H 145/79 H Blood Pressure [1 (Initial Baseline)] Blood Pressure [2] Blood Pressure [3] Blood Pressure Mean 101 Baseline BP Pulse Ox 98 98 Oxygen Delivery Method Nasal Cannula Oxygen Delivery Method [1 (Initial Baseline)] Oxygen Delivery Method [2] Oxygen Delivery Method [3] Oxygen Flow Rate (L/min) Oxygen Flow Rate (L/min) [1 (Initial Baseline)] Oxygen Flow Rate (L/min) [2] Oxygen Flow Rate (L/min) [3] EtCo2 - Document during CPR and with ROSC 39 EtCo2 - Document during CPR and with ROSC [1 (Initial Baseline)] EtCo2 - Document during CPR and with ROSC [2] EtCo2 - Document during CPR and with ROSC [3] [facility] <MELVA Hubbard - Last Filed: 07/16/25 21:38> [facility] Narrative Medical decision making narrative: Differential includes but not limited to A-fib, a flutter, electrolyte derangement 64-year-old male with chronic A-fib/A-flutter on anticoagulation presents with palpitations and shortness of breath and is in A-fib RVR between 90-110. Blood pressure is 146/101, 96% on room air, respiratory rate 24, afebrile. Lungs are clear. No clinical signs of fluid overload. He was given IV Cardizem 20 mg bolus x 1 and improved A-fib in the 70s. However, he still very symptomatic and uncomfortable from palpitations and is requesting cardioversion. CBC shows chronic leukocytosis at 12.6, otherwise his labs are unremarkable. TSH is minimally elevated at 4.777 free T4 is ordered but this will be outpatient follow-up. Chest x-ray shows cardiomegaly with mild vascular congestion. Attending will cardiovert and determine disposition, likely outpatient follow-up with cardiology. I have personally performed a face to face assessment of the patient and have reviewed the CHRIS Note. I performed a substantive portion of the visit including all aspects of the following. My kuo findings include: History is [64-year-old male history of recurrent A-fib and has had multiple cardioversions he is on chronic anticoagulation Xarelto. Patiently today after cutting his grass and having a few alcoholic beverages he went back in A-fib. Rate between 90 and about 110. He did take extra medication.] Exam is [62-year-old male sitting upright in bed. Vital signs are stable. Heart rates between 90 and 110 is in A-fib. H EENT exam pupils round reactive light. Moist mutes members. Neck nontender no JVD. Lungs clear to auscultation bilaterally. Heart A-fib rate about 100 no murmur. Chest wall ribs nontender. Abdomen soft nontender. Moving all 4 extremities. Calves nontender. Neurologically he is awake and alert. Answering questions following commands.] Medical Decision Making [patient undergo cardiac workup. Will be given Cardizem. At times in the past he is converted with medication or spontaneously. Other times he is needed to be cardioverted.] Other additions or changes: [None] Lab Data Labs: Laboratory Results - last 24 hr 07/16/25 07/16/25 19:57 22:12 WBC 12.6 H RBC 5.18 Hgb 15.1 Hct 44.6 MCV 86.1 MCH 29.2 MCHC 33.9 RDW Std Deviation 40.1 RDW Coeff of Lon 12.8 Plt Count 295 MPV 8.2 Immature Gran % (Auto) 0.700 Neut % (Auto) 67.6 Lymph % (Auto) 15.6 L Bay % (Auto) 8.6 Eos % (Auto) 6.9 H Baso % (Auto) 0.6 Absolute Neuts (auto) 8.5 H Absolute Lymphs (auto) 1.97 Nucleated RBC % 0 Sodium 134 Potassium 4.1 Chloride 94 L Carbon Dioxide 23.8 Anion Gap 16 H BUN 10 Creatinine 0.83 Estim Creat Clear Calc 146.03 Est GFR (MDRD) Non-Af 99 BUN/Creatinine Ratio 11.9 Glucose 131 H Calcium 10.2 Magnesium 1.5 Troponin T High Sens 12 D Troponin T Hi Sens 2 Hr 6 TSH 4.770 H Radiography Diagnostic Testing: Clinical Impression(s) from Imaging Studies Chest X-Ray 07/16/25 20:05 IMPRESSION: Cardiomegaly with mild vascular congestion. No airspace disease. Reading Location: [id number] <Dr. Graham Green MD - Last Filed: 07/16/25 22:53> [facility]DM Narrative Medical decision making narrative: I have personally performed a face to face assessment of the patient and have reviewed the CHRIS Note. I performed a substantive portion of the visit including all aspects of the following. My kuo findings include: History is [64-year-old male history of recurrent A-fib and has had multiple cardioversions he is on chronic anticoagulation Xarelto. Patiently today after cutting his grass and having a few alcoholic beverages he went back in A-fib. Rate between 90 and about 110. He did take extra medication.] Exam is [62-year-old male sitting upright in bed. Vital signs are stable. Heart rates between 90 and 110 is in A-fib. H EENT exam pupils round reactive light. Moist mutes members. Neck nontender no JVD. Lungs clear to auscultation bilaterally. Heart A-fib rate about 100 no murmur. Chest wall ribs nontender. Abdomen soft nontender. Moving all 4 extremities. Calves nontender. Neurologically he is awake and alert. Answering questions following commands.] Medical Decision Making [patient undergo cardiac workup. Will be given Cardizem. At times in the past he is converted with medication or spontaneously. Other times he is needed to be cardioverted.] Other additions or changes: [None] History & Record Review Discussion w/independent historian: Family Additional record(s) reviewed:: Prior inpatient record, Prior outpatient record, Prior ED visit, Prior labs and No prior records Lab Data Attestation: I reviewed the patient's lab results. Lab results narrative: CBC shows white count 12.6. H&H 15 and 44. Platelets 295. Chemistry shows sodium 134 potassium 4.1. Normal BUN and creatinine. Gap 16. Glucose 131. Initial troponin 12. 2-hour troponin 6. TSH mildly elevated 4.7. Labs: Laboratory Results - last 24 hr 07/16/25 07/16/25 19:57 22:12 WBC 12.6 H RBC 5.18 Hgb 15.1 Hct 44.6 MCV 86.1 MCH 29.2 MCHC 33.9 RDW Std Deviation 40.1 RDW Coeff of Lon 12.8 Plt Count 295 MPV 8.2 Immature Gran % (Auto) 0.700 Neut % (Auto) 67.6 Lymph % (Auto) 15.6 L Bay % (Auto) 8.6 Eos % (Auto) 6.9 H Baso % (Auto) 0.6 Absolute Neuts (auto) 8.5 H Absolute Lymphs (auto) 1.97 Nucleated RBC % 0 Sodium 134 Potassium 4.1 Chloride 94 L Carbon Dioxide 23.8 Anion Gap 16 H BUN 10 Creatinine 0.83 Estim Creat Clear Calc 146.03 Est GFR (MDRD) Non-Af 99 BUN/Creatinine Ratio 11.9 Glucose 131 H Calcium 10.2 Magnesium 1.5 Troponin T High Sens 12 D Troponin T Hi Sens 2 Hr 6 TSH 4.770 H Radiography Chest X-Ray - ED: Read by ED Physician, Normal, Lungs, Mediastinum, Bony Structures, No Acute Disease, Chronic Changes and Cardiomegaly Diagnostic Testing: Clinical Impression(s) from Imaging Studies Chest X-Ray 07/16/25 20:05 IMPRESSION: Cardiomegaly with mild vascular congestion. No airspace disease. Reading Location: [facility] Chest x-ray, portable, single view interpreted by myself shows cardiomegaly borderline. Normal lungs. No pneumonia. No effusions. No failure. Rhythm Strip Rhythm Strip: A-fib Rate: 110 Ectopy: None EKG Initial EKG: Attestation: I personally reviewed and interpreted this EKG as follows: Interpretation: Atrial Fibrillation Comments: A-fib RVR rate 110. No acute signs of IA or ischemia. Follow-up EKG: Attestation: I personally reviewed and interpreted this EKG as follows: Interpretation: No Acute Injury Pattern and Atrial Fibrillation Comments: After first cardioversion patient's repeat EKG afterwards again showed A-fib controlled rate rate 82 again no acute signs of IA or ischemia. After second cardioversion he again has fib flutter with interventricular conduction delay. [place] good pulse with it. His rates 129. Currently his rates between 80 and 110. To be placed on Cardizem drip. Procedures <Dr. Graham Green MD - Last Filed: 07/16/25 22:53> Other Procedures Procedure(s): Initial procedural sedation and cardioversion lasted maybe 30 seconds. Second attempt was made. Patient was given 100 mg of propofol. Was cardioverted with 360 J. He initially want to sinus rhythm and it lasted maybe a minute then he went back into intermittent A-fib and a flutter. Rate is between 80 and at x 110 120. He is awake and alert after the procedural sedation. I did discussion both he and his he will be admitted have already spoken to the hospitalist. <Dr. Graham Green MD - Last Filed: 07/16/25 22:53> Critical Care Time Critical Care Time: Yes Critical care time (excluding procedures): 30-74 minutes, Including time spent:, Discussing w/Patient &/or Family/Manager Of Creative Services, Discussing w/Consultants, Arranging Admission or Transfer, Performing Direct Patient Care at Bedside and - (45 minutes) Discharge Plan Triage Chief Complaint: Palpitations ED Midlevel Provider: Lynette Wagoner ED Provider: Graham Green Dx/Rx/DC Orders Clinical Impression: Atrial fibrillation with RVR, Palpitations, Encounter for cardioversion procedure, Anticoagulant long-term use Prescriptions: No Action lisinopril 20 mg tablet 20 mg PO QPM vitamin B complex [B Complex-Vitamin B12] Tablet 1 tab PO DAILY testosterone 20.25 mg/1.25 gram (1.62 %) gel in metered-dose pump 40.5 mg topical QAM carvedilol 12.5 mg tablet 12.5 mg PO BID Qty: 180 3RF allopurinol 100 MG tablet 100 mg PO DAILY Patient Comments: for gout atorvastatin 40 MG tablet 40 mg PO QHS alprazolam 0.5 MG tablet 0.5 mg PO TID sertraline 50 MG tablet 50 mg PO DAILY lisinopril-hydrochlorothiazide 20-12.5 mg tablet 1 tab PO QAM ergocalciferol (vitamin D2) 50,000 unit Tablet 50,000 unit PO .COMPLEX Rx Instructions: 50,000 units orally every other week; diltiazem HCl 120 mg capsule,extended release 24hr 120 mg PO BID ascorbic acid (vitamin C) [Vitamin C] 500 mg tablet 500 mg PO DAILY omeprazole [Prilosec] 20 mg Capsule,Delayed Release(Dr/Ec) 20 mg PO DAILY metformin 750 mg tablet extended release 24 hr 750 mg PO BID thiamine HCl (vitamin B1) 250 mg tablet 250 mg PO DAILY magnesium citrate,mag oxide 250 mg capsule 500 mg PO DAILY vitamin E mixed 1,000 unit capsule 1,000 unit PO DAILY Patient Comments: thinks 1000 unit is strength. gets otc Xarelto 20 mg tablet 20 mg PO QDAY Qty: 90 3RF Primary Care Provider: Charlene Dennison Referrals: Charlene Dennison MD [Primary Care Provider] - Lety Neumann MD [Med Staff - Active Staff] - Print Language: Venezuelan Disposition Disposition: Acute Care Hospital [facility]
[2025-07-16 20:36] LABS: Magnesium 1.5 mg/dL (1.5-2.2); Troponin T High Sensitivity 12 ng/L (<=22)
[2025-07-16 20:52] LABS: Anion Gap 16 (5-15); BUN 10 mg/dL (4-19); BUN/Creat Ratio 11.9 RATIO (10-20); Calcium,Total 10.2 mg/dL (7.6-11.0); Carbon Dioxide 23.8 mmol/L (21.0-32.0); Chloride 94 mmol/L (98-108); Estimated Creatinine Clearance 146.03 ml/min (50-250); Glucose 131 mg/dL (70-99); Potassium 4.1 mmol/L (3.3-5.1)
--- NOTE | 2025-07-16 22:00 | EKG12_ITS ---
Test Reason : DYSRHYTHMIA Blood Pressure : */* mmHG Vent. Rate : 129 BPM Atrial Rate : * BPM P-R Int : * ms QRS Dur : 152 ms QT Int : 374 ms P-R-T Axes : * 68 -18 degrees QTcB Int : 547 ms Probable Ventricular tachycardia Non-specific intra-ventricular conduction block Possible Lateral infarct , age undetermined Abnormal ECG Confirmed by Sergio Juarez ([id number]), editor department JIGAR ANGELO ([id number]) on 07/20/2025 10:25:58 AM Referred By: BRENDA Confirmed By: Sergio Juarez
--- NOTE | 2025-07-16 22:20 | EKG12_ITS ---
Test Reason : Blood Pressure : */* mmHG Vent. Rate : 65 BPM Atrial Rate : 65 BPM P-R Int : 202 ms QRS Dur : 106 ms QT Int : 436 ms P-R-T Axes : 46 2 50 degrees QTcB Int : 453 ms Normal sinus rhythm Incomplete left bundle branch block Borderline ECG When compared with ECG of 16-Jul-2025 22:25, MANUAL COMPARISON REQUIRED DATA IS UNCONFIRMED Confirmed by Sergio Juarez ([id number]), offline editor JIGAR ANGELO ([id number]) on 07/20/2025 11:13:41 AM Referred By: FREDY Confirmed By: Sergio Juarez
[2025-07-16 22:36] LABS: Troponin T High Sens 2 HR 6 ng/L (<=22)
--- NOTE | 2025-07-16 22:43 | PCM.HP.STD ---
[facility] - General General Date of Admission: 07/16/25 Date of Service: 07/16/25 Chief Complaint: Palpitations and SOB. [facility] Narrative VISHAL BAILEY, is a 64 M with a past medical history of essential hypertension; on lisinopril-hydrochlorothiazide and carvedilol BID, hyperlipidemia; on atorvastatin, former tobacco abuse (quit 1991), morbid obesity (class III); with BMI of 48.8 this admission, SHARRI; on BiPAP, NAFLD, DM-2; of unknown control on metformin BID, EtOH Abuse; with patient admitting to having ~6-8 beers today and routinely ingesting 3 beers daily, testosterone deficiency with ED; on HRT, RLS, depression with anxiety; on sertraline and alprazolam TID, history of gout; on allopurinol, history of glaucoma; currently not on treatment, history of vitamin D deficiency; on supplementation, history of diverticulitis, GERD; on omeprazole, OA; with chronic back pain and progressively worsening paroxysmal atrial fibrillation/flutter (since 2013); s/p multiple attempts (~8-9) at [facility] with last attempt on April 20, 2025 on diltiazem BID plus rivaroxaban with patient followed by [facility] with recent echocardiogram that revealed LVEF ~45-50% with borderline LV systolic function and stage I diastolic dysfunction in addition to severe biatrial dilatation and mild (1+) mitral valve insufficiency with mildly dilated aortic root on June 03, 2025 and with plan in place to be evaluated by blood tester since he recently wore a Holter monitor he is still waiting on the final results of who presents to [facility] ER complaining of palpitations and shortness of breath. Mr. Bailey reports his symptoms began around 3:30 PM after he drank several beers while mowing his lawn with the abrupt-onset of palpitations and shortness of breath that are typical of his previous bouts of atrial fibrillation; with RVR, he normally takes his medications at 3:30 AM and 3:30 PM but he was late on his afternoon dose of diltiazem and carvedilol and did not take them until ~4:15 PM. Even after he took his medications he still felt his heart racing so ~1 hour later he took an extra dose of 6.25 mg of carvedilol - so when his symptoms continue to persist he decided to come in for further evaluation and treatment. He denies associated fever, chills, visual changes, runny nose, sore throat, ear pain, chest pain, lower extremity edema, cough, abdominal pain, nausea, vomiting, diarrhea, constipation, dysuria, hematuria or rash. In the ER he underwent DCCV x 2 with subsequent aggression back into atrial fibrillation - but was rate controlled at less than 100 bpm with CXR that revealed cardiomegaly with mild vascular congestion and no airspace disease with a corresponding mildly elevated NT pro-BNP II of 912 pg/mL consistent with mild AE of Chronic borderline systolic and diastolic CHF; with LVEF ~45-50% with Leukocytosis of 12.6 K present on admission but without obvious signs of infection in addition to having a mildly elevated TSH of 4.77 present on admission complicated by chronic EtOH abuse likely promoting recurrent arrhythmia and he was then admitted to the PCU under observation status for ongoing care for the state that is expected to be less than 2 midnights. [facility] Medical History Depression Anxiety Alcohol use History of steroid therapy Diabetes Fatty liver High cholesterol Restless legs Back pain Dietary restriction Difficulty swallowing History of diverticulitis Gastric reflux Former smoker BiPAP (biphasic positive airway pressure) dependence Shortness of breath on exertion History of pain when walking History of stress test Hypertension Cardiology follow-up encounter Elevated alkaline phosphatase level Testosterone deficiency Vitamin D deficiency Panic disorder with agoraphobia Glaucoma Chronic GERD Gout Osteoarthritis Erectile dysfunction Genetic carrier of other disease Family history of colon cancer GI bleed History of left heart catheterization (LHC) (~05/29/22) SHARRI (obstructive sleep apnea) Atrial flutter with rapid ventricular response Paroxysmal atrial flutter Systolic dysfunction Cardiomyopathy Hyperlipidemia Palpitations Diabetes mellitus type 2 in obese Anxiety disorder Obesity Home Medications ?Medication ?Instructions ?Recorded ?Last Taken ?Type allopurinol 100 mg tablet 100 mg PO DAILY 05/15/14 04/20/25 History alprazolam 0.5 mg tablet 0.5 mg PO TID anxiety 01/09/19 04/20/25 History atorvastatin 40 mg tablet 40 mg PO QHS cholestrol 01/09/19 04/19/25 History sertraline 50 mg tablet 50 mg PO DAILY depression 01/09/19 04/20/25 History rivaroxaban 20 mg tablet (Xarelto) 20 mg PO QDAY #90 tabs 02/17/20 04/19/25 Rx ergocalciferol (vitamin D2) 50,000 50,000 unit PO .COMPLEX 05/14/21 05/29/22 History unit tablet diltiazem HCl 120 mg 120 mg PO BID 02/19/22 04/20/25 History capsule,extended release 24 hr lisinopril 20 mg tablet 20 mg PO QPM 05/18/22 04/19/25 History lisinopril 20 1 tab PO QAM 05/18/22 04/20/25 History mg-hydrochlorothiazide 12.5 mg tablet vitamin B complex (B 1 tab PO DAILY 10/09/22 04/20/25 History Complex-Vitamin B12 tablet) ascorbic acid (vitamin C) 500 mg 500 mg PO DAILY 01/11/23 04/19/25 History tablet (Vitamin C) omeprazole 20 mg capsule,delayed 20 mg PO DAILY 01/11/23 04/20/25 History release testosterone 40.5 mg topical QAM 03/01/25 04/19/25 History vitamin E mixed 1,000 unit capsule 1,000 unit PO DAILY 04/20/25 04/19/25 History carvedilol 12.5 mg tablet 12.5 mg PO BID #180 tabs 04/27/25 Unknown Rx magnesium citrate,mag oxide 250 mg 500 mg PO DAILY 07/16/25 Unknown History capsule metformin 750 mg tablet,extended 750 mg PO BID 07/16/25 Unknown History release 24 hr thiamine HCl (vitamin B1) 250 mg 250 mg PO DAILY 07/16/25 Unknown History tablet Allergy/AdvReac Type Severity Reaction Status Date / Time No Known Allergies Allergy Verified 07/16/25 19:45 Family History Mother Cardiomyopathy Cancer thyroid cancer CHF (congestive heart failure) Father CAD (coronary artery disease) Sister COPD (chronic obstructive pulmonary disease) Breast cancer Surgical History History of cardiac catheterization Hx of colonoscopy with polypectomy S/P arthroscopy of left shoulder s/p right shoulder surgery Status post left foot surgery S/P tonsillectomy History of cardioversion (04/20/25) Social History household members: spouse Smoking Status: Former smoker how long ago did patient quit smokin alcohol intake: current alcohol intake frequency: 3 or more drinks per day Alcohol type: beer details: occasional substance use type: does not use caffeine: No ROS ROS Narrative Review of Systems: Constitutional: Patient denies fever or chills. Eyes: Patient denies change in vision or discharge from eyes. ENT: Patient denies runny nose, sore throat or ear pain. Resp: Patient admits to shortness of breath but he denies cough. CV: Patient admits to palpitations and heart racing but he denies chest pain or lower extremity edema. GI: Patient denies abdominal pain, nausea, vomiting, diarrhea or constipation. : Patient denies dysuria or hematuria. MSK: Patient denies arthralgias or myalgias. Skin: Patient denies rash, abscess, wounds or jaundice. Psych: Patient denies symptoms of uncontrolled depression or anxiety. Neuro: Patient denies headache, paresthesias or focal neurologic deficits. Allergy: Patient denies lip swelling, tongue swelling or urticaria. Hematology: Patient admits to easy bleeding and bruisability on rivaroxaban. Endocrinology: Patient denies polyuria, polydipsia, polyphagia or heat/cold intolerance. 14 point ROS otherwise negative except for positives noted above in HPI. Vital Signs Vital Signs Vital Signs: 07/16/25 19:45 07/16/25 19:53 07/16/25 19:53 Temperature 97.2 F L Temperature Source Temporal Pulse Rate 102 H Pulse Rate [1 (Initial Baseline)] Pulse Rate [2] Pulse Rate [3] Respiratory Rate 24 H Respiratory Rate [1 (Initial Baseline)] Respiratory Rate [2] Respiratory Rate [3] Respiratory Effort Short of Breath Blood Pressure 146/101 H Blood Pressure [1 (Initial Baseline)] Blood Pressure [2] Blood Pressure [3] Blood Pressure Mean 116 Baseline BP Pulse Ox 96 109 Oxygen Delivery Method Room Air Room Air Oxygen Delivery Method [1 (Initial Baseline)] Oxygen Delivery Method [2] Oxygen Delivery Method [3] Oxygen Flow Rate (L/min) Oxygen Flow Rate (L/min) [1 (Initial Baseline)] Oxygen Flow Rate (L/min) [2] Oxygen Flow Rate (L/min) [3] EtCo2 - Document during CPR and with ROSC EtCo2 - Document during CPR and with ROSC [1 (Initial Baseline)] EtCo2 - Document during CPR and with ROSC [2] EtCo2 - Document during CPR and with ROSC [3] 07/16/25 20:46 07/16/25 20:55 07/16/25 21:25 Temperature Temperature Source Pulse Rate 90 75 Pulse Rate [1 (Initial Baseline)] Pulse Rate [2] Pulse Rate [3] Respiratory Rate 20 H 16 Respiratory Rate [1 (Initial Baseline)] Respiratory Rate [2] Respiratory Rate [3] Respiratory Effort Blood Pressure 134/89 H 111/64 Blood Pressure [1 (Initial Baseline)] Blood Pressure [2] Blood Pressure [3] Blood Pressure Mean 104 79 Baseline BP Pulse Ox 96 94 Oxygen Delivery Method Room Air Room Air Oxygen Delivery Method [1 (Initial Baseline)] Oxygen Delivery Method [2] Oxygen Delivery Method [3] Oxygen Flow Rate (L/min) Oxygen Flow Rate (L/min) [1 (Initial Baseline)] Oxygen Flow Rate (L/min) [2] Oxygen Flow Rate (L/min) [3] EtCo2 - Document during CPR and with ROSC 43 EtCo2 - Document during CPR and with ROSC [1 (Initial Baseline)] EtCo2 - Document during CPR and with ROSC [2] EtCo2 - Document during CPR and with ROSC [3] 07/16/25 21:25 07/16/25 21:25 07/16/25 22:09 Temperature Temperature Source Pulse Rate 84 74 Pulse Rate [1 (Initial Baseline)] 87 Pulse Rate [2] 82 Pulse Rate [3] 75 Respiratory Rate 18 25 H Respiratory Rate [1 (Initial Baseline)] 24 H Respiratory Rate [2] 18 Respiratory Rate [3] 21 H Respiratory Effort Blood Pressure 127/67 H 127/76 H Blood Pressure [1 (Initial Baseline)] 137/78 H Blood Pressure [2] 130/63 H Blood Pressure [3] 89/57 L Blood Pressure Mean Baseline BP 127/67 Pulse Ox 95 98 Oxygen Delivery Method Room Air Nasal Cannula Oxygen Delivery Method [1 (Initial Baseline)] Nasal Cannula Oxygen Delivery Method [2] Nasal Cannula Oxygen Delivery Method [3] Nasal Cannula Oxygen Flow Rate (L/min) 4 Oxygen Flow Rate (L/min) [1 (Initial Baseline)] 4 Oxygen Flow Rate (L/min) [2] 4 Oxygen Flow Rate (L/min) [3] 4 EtCo2 - Document during CPR and with ROSC 45 41 EtCo2 - Document during CPR and with ROSC [1 (Initial Baseline)] 41 EtCo2 - Document during CPR and with ROSC [2] 42 EtCo2 - Document during CPR and with ROSC [3] 41 07/16/25 22:14 07/16/25 22:25 07/16/25 22:30 Temperature Temperature Source Pulse Rate 76 105 H 128 H Pulse Rate [1 (Initial Baseline)] Pulse Rate [2] Pulse Rate [3] Respiratory Rate 25 H 26 H 24 H Respiratory Rate [1 (Initial Baseline)] Respiratory Rate [2] Respiratory Rate [3] Respiratory Effort Blood Pressure 138/90 H 109/85 H 143/108 H Blood Pressure [1 (Initial Baseline)] Blood Pressure [2] Blood Pressure [3] Blood Pressure Mean Baseline BP Pulse Ox 99 97 97 Oxygen Delivery Method Nasal Cannula Nasal Cannula Nasal Cannula Oxygen Delivery Method [1 (Initial Baseline)] Oxygen Delivery Method [2] Oxygen Delivery Method [3] Oxygen Flow Rate (L/min) 4 4 4 Oxygen Flow Rate (L/min) [1 (Initial Baseline)] Oxygen Flow Rate (L/min) [2] Oxygen Flow Rate (L/min) [3] EtCo2 - Document during CPR and with ROSC 41 45 39 EtCo2 - Document during CPR and with ROSC [1 (Initial Baseline)] EtCo2 - Document during CPR and with ROSC [2] EtCo2 - Document during CPR and with ROSC [3] 07/16/25 22:35 Temperature Temperature Source Pulse Rate 89 Pulse Rate [1 (Initial Baseline)] Pulse Rate [2] Pulse Rate [3] Respiratory Rate 22 H Respiratory Rate [1 (Initial Baseline)] Respiratory Rate [2] Respiratory Rate [3] Respiratory Effort Blood Pressure 145/79 H Blood Pressure [1 (Initial Baseline)] Blood Pressure [2] Blood Pressure [3] Blood Pressure Mean Baseline BP Pulse Ox 98 Oxygen Delivery Method Nasal Cannula Oxygen Delivery Method [1 (Initial Baseline)] Oxygen Delivery Method [2] Oxygen Delivery Method [3] Oxygen Flow Rate (L/min) Oxygen Flow Rate (L/min) [1 (Initial Baseline)] Oxygen Flow Rate (L/min) [2] Oxygen Flow Rate (L/min) [3] EtCo2 - Document during CPR and with ROSC 39 EtCo2 - Document during CPR and with ROSC [1 (Initial Baseline)] EtCo2 - Document during CPR and with ROSC [2] EtCo2 - Document during CPR and with ROSC [3] Weight Weight: 360 lb 0.238 oz Body Mass Index (BMI) 48.8 Physical Exam Const alert, oriented x3 and no apparent distress Constitutional Narrative: Morbidly obese patient with nontoxic appearance. General Appearance: cooperative HEENT normocephalic, head/scalp atraumatic, hearing grossly normal bilaterally and moist oral mucous membranes Eyes PERRL, EOMs intact bilaterally and conjunctivae normal Neck no lymphadenopathy and supple Resp normal respiratory effort, no retractions, no use of accessory muscles and clear to auscultation bilaterally Cardio Cardio Narrative: Irregularly irregular at ~90 bpm. GI normal to inspection, nondistended, normoactive bowel sounds, soft to palpation, non-tender and non-distended GI Narrative: Morbidly obese. Extremity normal to inspection, full ROM and no clubbing, cyanosis or edema Skin Skin Narrative: Patient has evidence of rash, abscess, wounds or jaundice. Neuro oriented x3, CN's II-XII intact bilaterally, moves all extremities and no focal motor deficits Sensorium / Orientation: awake, alert, oriented to person, oriented to place and oriented to time Speech: speech normal Psych affect normal Results Medical Records Data Attestation: I reviewed the patient's medical records Lab / Micro Data Attestation: I reviewed the patient's lab results. 07/16/25 19:57 07/16/25 19:57 Labs: Laboratory Results - last 24 hr 07/16/25 19:57: WBC 12.6 H, RBC 5.18, Hgb 15.1, Hct 44.6, MCV 86.1, MCH 29.2, MCHC 33.9, RDW Std Deviation 40.1, RDW Coeff of Lon 12.8, Plt Count 295, MPV 8.2, Immature Gran % (Auto) 0.700, Neut % (Auto) 67.6, Lymph % (Auto) 15.6 L, [place] % (Auto) 8.6, Eos % (Auto) 6.9 H, Baso % (Auto) 0.6, Absolute Neuts (auto) 8.5 H, Absolute Lymphs (auto) 1.97, Nucleated RBC % 0, Sodium 134, Potassium 4.1, Chloride 94 L, Carbon Dioxide 23.8, Anion Gap 16 H, BUN 10, Creatinine 0.83, Estim Creat Clear Calc 146.03, Est GFR (MDRD) Non-Af 99, BUN/Creatinine Ratio 11.9, Glucose 131 H, Calcium 10.2, Magnesium 1.5, Troponin T High Sens 12 D, TSH 4.770 H 07/16/25 22:12: Troponin T Hi Sens 2 Hr 6 Imaging Radiology Impression Chest X-Ray 07/16/25 20:05 IMPRESSION: Cardiomegaly with mild vascular congestion. No airspace disease. Reading Location: [id number] Assessment & Plan Assessment/Plan (1) Atrial fibrillation with RVR: (2) Palpitations: (3) SOB (shortness of breath): (4) Alcohol abuse: (5) CHF exacerbation: QUALIFIERS: Heart failure type: diastolic Qualified Code(s): I50.33 - Acute on chronic diastolic (congestive) heart failure (6) Pulmonary congestion: (7) Leukocytosis: QUALIFIERS: Leukocytosis type: unspecified Qualified Code(s): D72.829 - Elevated white blood cell count, unspecified (8) Morbid obesity with BMI of 45.0-49.9, adult: PLAN: Plan 1. Paroxysmal atrial fibrillation; with RVR causing Palpitations and SOB s/p DCC x 2 in ER after an intentional delay in taking cardiac medications in the setting of previously known progressively worsening paroxysmal atrial fibrillation/flutter (since 2013); s/p multiple attempts (~8-9) at [facility] with last attempt on April 20, 2025 on diltiazem BID plus rivaroxaban - Admit to PCU under observation status. Continue home medications as previous including rivaroxaban. Finally, due to the recurrent nature of patient's problems we will consult [facility] to see this patient on rounds in the a.m. for further recommendations with help appreciated in advance. 2. EtOH Abuse; with patient admitting to having ~6-8 beers today and routinely ingesting 3 beers daily complicating and likely precipitating #1 - EtOH Cessation will be strongly encouraged with patient intended to be started on lorazepam taper to prevent withdrawal - which he refused because he wants to continue his alprazolam TID. He will also be treated with thiamine and folate per EtOH detox protocol. Phenobarbital was avoided to to contraindication with his cardiac medications. 3. CXR that revealed cardiomegaly with mild vascular congestion and no airspace disease with recent echocardiogram that revealed LVEF ~45-50% with borderline LV systolic function and stage I diastolic dysfunction in addition to severe biatrial dilatation and mild (1+) mitral valve insufficiency with mildly dilated aortic root on June 03, 2025 with Leukocytosis of 12.6 K present on admission but without obvious signs of infection compounding #1 & #2 - Checked NT pro-BNP II to confirm suspicion of mild AE CHF with level of 912 pg/mL present on admission so we will give furosemide IV daily. Increased WBC suspected to be due to acute stress response due to combination of #1 - #3. 4. Morbid obesity (class III); with BMI of 48.8 this admission with NAFLD and SHARRI; on BiPAP adding to the burden of disease outlined #1 - #3 - Weight loss will be recommended. TSH elevated at 4.77 present on admission. Check FT4 and FT3. Resume nocturnal BiPAP as previous. 5. Essential hypertension; on lisinopril-hydrochlorothiazide and carvedilol BID - Maintain present treatment. Give IV hydralazine as needed for systolic blood pressure greater than 160 mmHg. 6. Hyperlipidemia; on atorvastatin - Resume statin. 7. Former tobacco abuse (quit 1991) - Noted. 8. DM-2; of unknown control on metformin BID - ADA/cardiac diet. FSBS q. AC/HS plus SSI. Hold metformin while inpatient. Check HgbA1c to objectively evaluate quality of diabetic control. 9. Testosterone deficiency with ED; on HRT - Hold HRT while inpatient. 10. RLS - Stable. 11. Depression with anxiety; on sertraline and alprazolam TID - Resume sertraline as before - but hold alprazolam in light of lorazepam taper for #2 with phenobarbital having contraindication with his cardiac medications. 12. History of gout; on allopurinol - Stable with no evidence of acute flare. Continue allopurinol as before. 13. History of glaucoma; currently not on treatment - Noted. 14. History of vitamin D deficiency; on supplementation - Resume vitamin D supplement as previous. 15. History of diverticulitis - Noted with no evidence of acute flare at this time. 16. GERD; on omeprazole - Continue PPI. 17. OA; with chronic back pain - Give low-dose acetaminophen prn for pain or fever. 18. DVT prophylaxis - Patient already on rivaroxaban for #1 which will be continued. Total time: Approximately (but not less than) 70 minutes. Charges/Coding Visit Charges OBSV E&M: 20343 Observ/hosp same date L2
[2025-07-16] MEDS: Diltiazem 125 MG in Dextrose 5%-Water (100mL Bag) 100 ML IV (23:11)
[2025-07-16 23:49] LABS: Prothrombin Time (Protime)PT. 20.5 SECONDS (11.7-14.9)
[2025-07-17] VITALS (22 sets, daily range): BP systolic 105–155; BP diastolic 52–107; PULSE 61–136; RESP 15–19; TEMP 36.4–36.9; O2SAT 91–96; BMI 48.7
[2025-07-17] MEDS: CLARIFY ORDER NOTE (00:34)
[2025-07-17] MEDS: Magnesium Chloride 64 MG Delay Rel.Tablet 128 MG PO ×3 (01:00→21:53)
[2025-07-17 01:49] LABS: Troponin T High Sens 4 HR 8 ng/L (<=22)
[2025-07-17 01:57] LABS: Free T3 3.5 pg/mL (2.18-3.98); Pro- Brain NATRIURETIC PEPTIDE 912 pg/mL (<=900)
[2025-07-17 03:25] LABS: Alcohol, Blood (Medical)-Serum < 10.0 mg/dL (<=10.0)
[2025-07-17] MEDS: 0.9% Saline Lock 10 ML Syringe IV ×2 (06:31→10:28)
[2025-07-17 08:05] LABS: Barbiturate Urine NEGATIVE (< 200 ng/mL); Benzodiazepine Urine NEGATIVE (< 200 ng/mL); PCP Urine NEGATIVE (< 25 ng/mL); THC Urine NEGATIVE (< 50 ng/mL)
--- NOTE | 2025-07-17 09:32 | PN.HOSP_ITS ---
Reason for Visit Chief Complaint: Palpitations and SOB. Subjective Subjective Saw patient at bedside's morning. He had just woken up and was still using his BiPAP. He otherwise was laying back comfortably in bed, answering questions appropriately and in no acute distress. Denied any alcohol withdrawal symptoms. No other acute concerns currently. Objective Data Objective Data Vital Signs: Vital Signs Temp Pulse Resp BP Pulse Ox O2 Del Method O2 Flow Rate 98.1 F 80 16 150/81 H 94 Room Air 5 07/17/25 04:00 07/17/25 08:07/17/25 08:07/17/25 07:00 07/17/25 08:30 07/17/25 08:30 07/17/25 07:00 FiO2 25 07/17/25 07:00 Oxygen Flow Rate (L/min) [3] 4 Oxygen Flow Rate (L/min) [2] 4 Oxygen Flow Rate (L/min) [1 ( 4 Initial Baseline)] Oxygen Flow Rate (L/min) 5 Oxygen Delivery Method [3] Nasal Cannula Oxygen Delivery Method [2] Nasal Cannula Oxygen Delivery Method [1 ( Nasal Cannula Initial Baseline)] Oxygen Delivery Method Room Air Weight: 163.1 kg Body Mass Index (BMI) 48.7 Intake & Output: Intake and Output for Last 24 Hours 07/15/25 07/16/25 07/17/25 23:59 23:59 23:59 Intake Total 53.24 / 53.24 Balance 53.24 / 53.24 Lab / Micro Data 07/16/25 19:57 07/16/25 19:57 Labs: Laboratory Results - last 24 hr 07/16/25 19:57: WBC 12.6 H, RBC 5.18, Hgb 15.1, Hct 44.6, MCV 86.1, MCH 29.2, MCHC 33.9, RDW Std Deviation 40.1, RDW Coeff of Lon 12.8, Plt Count 295, MPV 8.2, Immature Gran % (Auto) 0.700, Neut % (Auto) 67.6, Lymph % (Auto) 15.6 L, [place] % (Auto) 8.6, Eos % (Auto) 6.9 H, Baso % (Auto) 0.6, Absolute Neuts (auto) 8.5 H, Absolute Lymphs (auto) 1.97, Nucleated RBC % 0, PT 20.5 H, INR 1.7, Sodium 134, Potassium 4.1, Chloride 94 L, Carbon Dioxide 23.8, Anion Gap 16 H, BUN 10, Creatinine 0.83, Estim Creat Clear Calc 146.03, Est GFR (MDRD) Non-Af 99, BUN/Creatinine Ratio 11.9, Glucose 131 H, Calcium 10.2, Magnesium 1.5, T roponin T High Sens 12 D, TSH 4.770 H, Free T4 1.10 07/16/25 22:12: Troponin T Hi Sens 2 Hr 6 07/17/25 00:57: Hemoglobin A1c 6.3 H, Troponin T Hi Sens 4Hr 8, NT pro BNP II 912 H, Free T3 pg/dL 3.5, Ethyl Alcohol < 10.0 07/17/25 07:20: Urine Opiates Screen NEGATIVE, U Buprenorphine Qual NEGATIVE, Ur Oxycodone Screen NEGATIVE, Urine Methadone Screen NEGATIVE, Urine Fentanyl Screen NEGATIVE, Ur Barbiturates Screen NEGATIVE, Ur Phencyclidine Scrn NEGATIVE, Ur Amphetamines Screen NEGATIVE, U Benzodiazepines Scrn NEGATIVE, Urine Cocaine Screen NEGATIVE, U Cannabinoids Screen NEGATIVE Radiography Diagnostic Testing: Radiology Impression Chest X-Ray 07/16/25 20:05 IMPRESSION: Cardiomegaly with mild vascular congestion. No airspace disease. Reading Location: [id number] Rhythm Strip Rhythm Strip: A-fib Rate: 110 Ectopy: None Physical Exam Const alert, oriented x3 and no apparent distress Constitutional Narrative: Upper middle-aged male, class II obesity, mildly fatigued appearing but otherwise laying back comfortably in bed, conversing normally, in no acute distress. General Appearance: cooperative and comfortable HEENT normocephalic, head/scalp atraumatic, hearing grossly normal bilaterally, nasal mucous membranes and turbinates normal and moist oral mucous membranes Eyes PERRL, EOMs intact bilaterally and conjunctivae normal Neck full ROM Chest inspection of chest normal Resp normal respiratory effort and no use of accessory muscles Resp Narrative: Breathing comfortably on room air at rest. Mildly diminished breath sounds in bilateral lung bases, otherwise good air movement throughout with no wheezing noted. Cardio regular rate, regular rhythm, no murmurs and peripheral pulses 2+ throughout GI normal to inspection, nondistended, normoactive bowel sounds, soft to palpation, non-tender and non-distended Back/Spine normal ROM Extremity normal to inspection, full ROM and no pedal edema Skin no rashes or lesions noted Psych mental status grossly normal Assessment & Plan Assessment/Plan (1) CHF exacerbation: QUALIFIERS: Heart failure type: diastolic Qualified Code(s): I 50.33 - Acute on chronic diastolic (congestive) heart failure (2) Atrial fibrillation with RVR: (3) Alcohol abuse: PLAN: Plan Patient is a 64-year-old male who presented to [facility] ED on 07/16/2025 with shortness of breath and palpitations. 1. Recurrent A-fib with RVR with mild acute on chronic HFrEF ? Cardiology consulted. History of paroxysmal A-fib with RVR, follows with outpatient cardiology. Echo on 06/03 showed EF 45 to 50%, mildly dilated LV, stage I diastolic dysfunction, severe biatrial dilation, no significant valvular disease. Suspected that reduced EF is multifactorial from A-fib with RVR and alcohol abuse as below. Presented in A-fib with RVR. Underwent DCCV x 2 in the ED with quick conversion back to A-fib with RVR. Initiated on Cardizem drip and converted back to normal sinus rhythm on critical care physician assistant of 07/17. BNP mildly elevated at 912 and chest x-ray with cardiomegaly with mild vascular congestion; notably is stable on room air at rest. Will give 2 doses of IV Lasix today and monitor BMP and urine output; suspect patient will not need diuretic on discharge at this point. Continue home Coreg, diltiazem and Xarelto. Appreciate further cardiology recommendations. 2. Alcohol abuse ? Patient reports drinking 15-18 beers daily. Last drink was in the afternoon on day of admission. Alcohol level less than 10 on admit. [facility] protocol in place with as needed Ativan; has had no withdrawal symptoms to this point. Notably is on low-dose Xanax 3 times daily as needed for anxiety as below, can continue this. Will monitor closely. Chronic medical conditions: ? Class III obesity with SHARRI: BMI 48 on admit. Complete hospital course and care. Continue home PAP therapy at night. ? Hypertension/hyperlipidemia: Normotensive to mildly hypertensive since admission. Continue home statin, Xarelto, Coreg, diltiazem, and lisinopril. ? GERD: Continue home PPI. ? Anxiety/depression: Stable. Continue home sertraline and low-dose Xanax as needed. ? Type 2 diabetes mellitus: A1c 6.3% on admit. Treat with sliding scale insulin with meals while inpatient. Hold home metformin. ? History of gout: Continue home allopurinol. DVT prophylaxis: Not indicated, on Xarelto CODE STATUS: Full code, verified Expected disposition: Home, 1 to 2 days Total clinical time spent by myself addressing the patient's medical issues, reviewing all the data, and collaborating with patient's care team: 35 minutes. Charges/Coding Visit Charges Inpatient E&M: 54519 Subs Hosp L2
[2025-07-17] MEDS: Vitamin B Comp W-C Capsule 1 CAP PO (09:41)
[2025-07-17] MEDS: Thiamine Hydrochloride 100 MG Tablet 200 MG PO (09:41)
--- NOTE | 2025-07-17 13:48 | CASEMGMT ---
EVON TOWNSEND in to discuss ESPARZA form with patient. EVON TOWNSEND explained ESPARZA form, patient voiced understanding. Pt signed form and filed in chart. Pt provided with a copy of signed ESPARZA form. Patient had no further questions or concerns at this time. Pt lying in bed in no distress with at bedside. Pt states he is typically indep at home. Pt only has a CPAP. Pt denies any homegoing needs.
[2025-07-18 02:00] VITALS: BP 121/51; PULSE 75; RESP 16; TEMP 36.8; O2SAT 98
[2025-07-18 05:25] LABS: Hematocrit 39.4 % (40-54); Hemoglobin 12.9 g/dL (13.0-16.5); Mean Corp Hgb Conc 32.7 g/dL (32-36); Mean Corpuscular Volume 87.9 fL (80-94); Mean Platelet Vol. 8.5 fl (6.2-12.0); Platelet Count 233 K/mm3 (150-450); RBC Distribution Width CV 13.2 % (11.6-14.6); RBC Distribution Width SD 42.6 fl (35.1-43.9); Red Blood Count 4.48 M/mm3 (4.6-6.2); White Blood Count 10.1 K/mm3 (4.4-11.0)
[2025-07-18 05:53] LABS: Anion Gap 13 (5-15); BUN 18 mg/dL (4-19); BUN/Creat Ratio 17.1 RATIO (10-20); Calcium,Total 9.5 mg/dL (7.6-11.0); Carbon Dioxide 26.6 mmol/L (21.0-32.0); Chloride 100 mmol/L (98-108); Estimated Creatinine Clearance 116.46 ml/min (50-250); Glucose 146 mg/dL (70-99); Potassium 3.7 mmol/L (3.3-5.1)
[2025-07-18 07:47] VITALS: BP 133/65; PULSE 65; RESP 16; TEMP 36.5; O2SAT 94
[2025-07-18] MEDS: Thiamine Hydrochloride 100 MG Tablet 200 MG PO (08:01)
[2025-07-18] MEDS: Magnesium Chloride 64 MG Delay Rel.Tablet 128 MG PO (08:04)
[2025-07-18] MEDS: Vitamin B Comp W-C Capsule 1 CAP PO (11:51)
--- NOTE | 2025-07-18 12:35 | PCM.DC.SUM ---
Providers Date of Admission: 07/16/25 Date of Discharge: 07/18/25 Primary Care Physician: Dr. Charlene Dennison MD Reason For Visit: RECURRENT AFIB WITH RVR PALPITATIONS SOB & ETOH Diagnosis Discharge Diagnosis (1) CHF exacerbation: Status: Chronic Code(s): I50.9 - Heart failure, unspecified Qualifiers: Heart failure type: diastolic Qualified Code(s): I50.33 - Acute on chronic diastolic (congestive) heart failure (2) Atrial fibrillation with RVR: Status: Acute Code(s): I48.91 - Unspecified atrial fibrillation (3) Alcohol abuse: Status: Acute Code(s): F10.10 - Alcohol abuse, uncomplicated Medications at Discharge Home Medications allopurinol 100 mg tablet 100 mg PO DAILY 05/15/14 alprazolam 0.5 mg tablet 0.5 mg PO TID anxiety 01/09/19 atorvastatin 40 mg tablet 40 mg PO QHS cholestrol 01/09/19 sertraline 50 mg tablet 50 mg PO DAILY depression 01/09/19 rivaroxaban 20 mg tablet (Xarelto) 20 mg PO QDAY #90 tabs 02/17/20 ergocalciferol (vitamin D2) 50,000 unit tablet 50,000 unit PO .COMPLEX 05/14/21 diltiazem HCl 120 mg capsule,extended release 24 hr 120 mg PO BID 02/19/22 lisinopril 20 mg tablet 20 mg PO QPM 05/18/22 lisinopril 20 mg-hydrochlorothiazide 12.5 mg tablet 1 tab PO QAM 05/18/22 vitamin B complex (B Complex-Vitamin B12 tablet) 1 tab PO DAILY 10/09/22 ascorbic acid (vitamin C) 500 mg tablet (Vitamin C) 500 mg PO DAILY 01/11/23 omeprazole 20 mg capsule,delayed release 20 mg PO DAILY 01/11/23 testosterone 40.5 mg topical QAM 03/01/25 vitamin E mixed 1,000 unit capsule 1,000 unit PO DAILY 04/20/25 carvedilol 12.5 mg tablet 12.5 mg PO BID #180 tabs 04/27/25 magnesium citrate,mag oxide 250 mg capsule 500 mg PO DAILY 07/16/25 metformin 750 mg tablet,extended release 24 hr 750 mg PO BID 07/16/25 thiamine HCl (vitamin B1) 250 mg tablet 250 mg PO DAILY 07/16/25 Hospital Course Operations None Procedures Cardioversion, EKG and - (Chest x-ray) Summary of Care Provided Minutes Spent on Discharge: 45 Hospital Course: Patient is a 64-year-old male who presented to [facility] ED on 07/16/2025 with shortness of breath and palpitations. Hospital course as noted below. Patient discharged home in stable condition on 07/18. 1. Recurrent A-fib with RVR with mild acute on chronic HFrEF ? History of paroxysmal A-fib with RVR, follows with outpatient cardiology. Echo on 06/03 showed EF 45 to 50%, mildly dilated LV, stage I diastolic dysfunction, severe biatrial dilation, no significant valvular disease. Suspected that reduced EF is multifactorial from A-fib with RVR and alcohol abuse as below. Presented in A-fib with RVR. Underwent DCCV x 2 in the ED with quick conversion back to A-fib with RVR. Initiated on Cardizem drip and converted back to normal sinus rhythm on head bellhop captain of 07/17. BNP mildly elevated at 912 and chest x-ray with cardiomegaly with mild vascular congestion. Gave 2 doses of IV Lasix with good diuresis and mild bump in creatinine; notably remained stable on room air at rest during hospitalization. No need for diuretic on discharge. Patient remained in normal sinus rhythm for remainder of hospitalization on home Coreg and diltiazem. Patient notably had discussed potential flecainide therapy versus consideration of ablation in the office with cardiology in April, but patient preferred to observe on current management. Discussed with cardiology and patient was okay for discharge on current home regimen with close outpatient follow-up with cardiology after discharge. 2. Alcohol abuse ? Patient reports drinking 15-18 beers daily. Last drink was in the afternoon on day of admission. Alcohol level less than 10 on admit. CIWA protocol in place during admission and patient had no withdrawal symptoms noted. He is on Xanax 0.5 mg 3 times daily as needed for anxiety and did take 2 doses of Xanax while here. Given his minimal withdrawal symptoms, okay for patient to discharge home at this time. Strongly encouraged minimizing alcohol use on discharge. Chronic medical conditions: ? Class III obesity with SHARRI: BMI 48 on admit. Complete hospital course and care. Continue home PAP therapy at night. ? Hypertension/hyperlipidemia: Normotensive to mildly hypertensive during hospitalization. Continue home statin, Xarelto, Coreg, diltiazem, and lisinopril. ? GERD: Continue home PPI. ? Anxiety/depression: Stable. Continue home sertraline and low-dose Xanax as needed. ? Type 2 diabetes mellitus: A1c 6.3% on admit. Treat with sliding scale insulin with meals while inpatient. Hold home metformin. ? History of gout: Continue home allopurinol. Total clinical time spent by myself addressing the patient's medical issues, reviewing all the data, and collaborating with patient's care team: 45 minutes. Physical Exam Const alert, oriented x3 and no apparent distress Constitutional Narrative: Upper middle-aged male, class II obesity, mildly fatigued appearing but otherwise laying back comfortably in bed, conversing normally, in no acute distress. General Appearance: cooperative and comfortable HEENT normocephalic, head/scalp atraumatic, hearing grossly normal bilaterally, nasal mucous membranes and turbinates normal and moist oral mucous membranes Eyes PERRL, EOMs intact bilaterally and conjunctivae normal Neck full ROM Chest inspection of chest normal Resp normal respiratory effort and no use of accessory muscles Resp Narrative: Breathing comfortably on room air at rest. Mildly diminished breath sounds in bilateral lung bases, otherwise good air movement throughout with no wheezing noted. Cardio regular rate, regular rhythm, no murmurs and peripheral pulses 2+ throughout GI normal to inspection, nondistended, normoactive bowel sounds, soft to palpation, non-tender and non-distended Back/Spine normal ROM Extremity normal to inspection, full ROM and no pedal edema Skin no rashes or lesions noted Psych mental status grossly normal Weight / BMI Weight Weight: 163.1 kg Body Mass Index (BMI) 48.7 ABG / Lab / Microbiology Data 07/18/25 05:05 07/18/25 05:05 Laboratory: Laboratory Results - last 24 hr 07/17/25 17:03: POC Glucose 191 H 07/17/25 21:54: POC Glucose 128 H 07/18/25 05:05: WBC 10.1, RBC 4.48 L, Hgb 12.9 L, Hct 39.4 L, MCV 87.9, MCH 28.8, MCHC 32.7, RDW Std Deviation 42.6, RDW Coeff of Lon 13.2, Plt Count 233, MPV 8.5, Sodium 139, Potassium 3.7, Chloride 100, Carbon Dioxide 26.6, Anion Gap 13, BUN 18, Creatinine 1.04, Estim Creat Clear Calc 116.46, Est GFR (MDRD) Non-Af 81, BUN/Creatinine Ratio 17.1, Glucose 146 H, Calcium 9.5 07/18/25 06:05: POC Glucose 157 H D/C Instructions DC O2, CPAP, BIPAP Needs Home O2 Discharge instructions: No Meaningful Use Info Meaningful Use Meaningful Use Diagnoses (Choose all that apply): CHF CHF MASSIMO/ARB ordered at discharge?: Yes Documented LVEF (%): 45 Discharge Plan Admission Admit Date/Time: 07/17/25 13:48 Primary Reason for Your Visit: palpitations and shortness of breath Attending Provider: Gerald Taylor Primary Care Provider: Charlene Dennison Consulting Providers: Maykel Krishnan Instructions Additional Instructions / Restrictions: Please continue your home medications as normal. Please follow-up with cardiology in the office in the next 1 to 2 weeks. Discharge Orders/Prescriptions Prescriptions: Continued lisinopril 20 mg tablet 20 mg PO QPM vitamin B complex [B Complex-Vitamin B12] Tablet 1 tab PO DAILY testosterone 20.25 mg/1.25 gram (1.62 %) gel in metered-dose pump 40.5 mg topical QAM carvedilol 12.5 mg tablet 12.5 mg PO BID Qty: 180 3RF allopurinol 100 MG tablet 100 mg PO DAILY Patient Comments: for gout atorvastatin 40 MG tablet 40 mg PO QHS alprazolam 0.5 MG tablet 0.5 mg PO TID sertraline 50 MG tablet 50 mg PO DAILY lisinopril-hydrochlorothiazide 20-12.5 mg tablet 1 tab PO QAM ergocalciferol (vitamin D2) 50,000 unit Tablet 50,000 unit PO .COMPLEX Rx Instructions: 50,000 units orally every other week; diltiazem HCl 120 mg capsule,extended release 24hr 120 mg PO BID ascorbic acid (vitamin C) [Vitamin C] 500 mg tablet 500 mg PO DAILY omeprazole 20 mg Capsule,Delayed Release(Dr/Ec) 20 mg PO DAILY metformin 750 mg tablet extended release 24 hr 750 mg PO BID thiamine HCl (vitamin B1) 250 mg tablet 250 mg PO DAILY magnesium citrate,mag oxide 250 mg capsule 500 mg PO DAILY vitamin E mixed 1,000 unit capsule 1,000 unit PO DAILY Patient Comments: thinks 1000 unit is strength. gets otc Xarelto 20 mg tablet 20 mg PO QDAY Qty: 90 3RF Referrals / Follow Up: Charlene Dennison MD [Primary Care Provider] - Lety Neumann MD [Med Staff - Active Staff] - Disposition Disposition (needs filled in before D/C Order can be placed): Home, Self Care Charges/Coding Visit Charges Inpatient E&M: 16363 Disch Hosp >30min
== END 2025-07-18 14:28 | disposition home or self-care (01) | DRG 308 ==
LOC: ED 23:05 → PCU 23:11
PROVIDERS: Physician Assistant; Admitting Provider Internal Medicine; Emergency Provider Emergency Medicine; PCP Internal Medicine; Visit Provider Hospitalist
DX: I48.0 Paroxysmal atrial fibrillation (principal); I50.33 Acute on chronic diastolic (congestive) heart failure; Z68.42 Body mass index [BMI] 45.0-49.9, adult; I11.0 Hypertensive heart disease with heart failure; E11.9 Type 2 diabetes mellitus without complications; F10.10 Alcohol abuse, uncomplicated; E66.01 Morbid (severe) obesity due to excess calories; G47.33 Obstructive sleep apnea (adult) (pediatric); M19.90 Unspecified osteoarthritis, unspecified site; E78.00 Pure hypercholesterolemia, unspecified; K21.9 Gastro-esophageal reflux disease without esophagitis; F41.8 Other specified anxiety disorders; M10.9 Gout, unspecified; Z79.01 Long term (current) use of anticoagulants; Z82.49 Family history of ischemic heart disease and other diseases of the circulatory system; Z79.899 Other long term (current) drug therapy; Z87.891 Personal history of nicotine dependence; E66.813 Obesity, class 3; Z87.19 Personal history of other diseases of the digestive system
CPT/HCPCS: 36415; 71045; 80048; 80307; 82077; 82962; 83036; 83735; 83880; 84439; 84443; 84481; 84484; 85025; 85027; 85610; 92960; 93005; 94003; 94660; 99285; A4216; J1938

== ENCOUNTER → 2025-09-20 | Outpatient (CLI) | payer MEDICARE, OTHER, SELFPAY ==
[2025-09-20 12:52] LABS: Mucous, Urine 0 SEEN /hpf (<or=2+); Red Blood Cells-Urine 0 SEEN /hpf (0-5); Squamous Epithelial Cells - UA 0 SEEN /hpf (0-5)
[2025-09-20 12:54] LABS: Color, Urine Yellow (Yellow); Glucose, Dipstick Normal (Normal); Ketone-Dipstick Negative (Negative); Leukocyte Esterase-Dipstick Negative /ul (Negative); Nitrite-Dipstick Negative (Negative); Occult Blood-Urine Negative /ul (Negative); Protein-Dipstick 15 mg/dl (Negative); Specific Gravity, Urine 1.015 (1.002-1.030); Urine Bilirubin Dipstick Negative (Negative)
[2025-09-20 12:55] LABS: Hematocrit 45.7 % (40-54); Hemoglobin 14.7 g/dL (13.0-16.5); Immature Granulocytes Count 0.090 X10^3/uL (0.0-0.0); Mean Corp Hgb Conc 32.2 g/dL (32-36); Mean Corpuscular Volume 89.6 fL (80-94); Mean Platelet Vol. 10.1 fl (6.2-12.0); NRBC Flagged by Analyzer 0 % (0-5); Platelet Count 328 K/mm3 (150-450); RBC Distribution Width CV 13.8 % (11.6-14.6); RBC Distribution Width SD 44.8 fl (35.1-43.9); Red Blood Count 5.10 M/mm3 (4.6-6.2); White Blood Count 12.0 K/mm3 (4.4-11.0)
[2025-09-20 13:48] LABS: Creatinine, Urine (random) 155.00 mg/dL (39.00-259.00); Microalbumin,Random Urine 17.6 mg/L (<20 mg/L)
[2025-09-20 13:49] LABS: AST(SGOT) 18 U/L (<=37); Alanine Aminotransfer ALT/SGPT 17 U/L (<=46); Albumin, Serum 4.2 g/dL (3.4-4.8); Alkaline Phosphatase 86 U/L (40-129); Anion Gap 11 (5-15); BUN 17 mg/dL (4-19); BUN/Creat Ratio 16.7 RATIO (10-20); Calcium,Total 10.4 mg/dL (7.6-11.0); Carbon Dioxide 26.4 mmol/L (21.0-32.0); Chloride 105 mmol/L (98-108); Globulin 2.5 g/dL (2.2-4.2); Glucose 122 mg/dL (70-99); Potassium 4.4 mmol/L (3.3-5.1)
[2025-09-24 13:09] LABS: Testosterone, % Free 2.23 % (1.50-4.20); Testosterone, Free 10.77 ng/dL (5.00-21.00)
== END | disposition home or self-care (01) ==
LOC: LABSPEC 12:30
PROVIDERS: PCP Internal Medicine; Referring Provider Internal Medicine; Visit Provider Internal Medicine
DX: I10 Essential (primary) hypertension (principal); E29.1 Testicular hypofunction
CPT/HCPCS: 80053; 81001; 82043; 82570; 84402; 84403; 85025